=== PATIENT | female | born 1965 | race Caucasian/White ===

== ENCOUNTER 2016-09-12 10:43 | Outpatient (CLI) | payer BC ==
[~2016-09-12] VITALS: Ht 177.8 cm; Wt 66.7 kg
[~2016-09-12 10:43] MED LIST: ALPR.25T; DESV50TA PO; DOXY100C2 PO; ESCT10T; FLC150T PO; FLUO40CA PO; HDR4T PO; HYDR-2997 PO; HYDR1CAP2 PO; MELO15TA14 PO; TRAM-21 PO
[2016-09-12] MEDS ORDERED: TRIAMCINOLONE ACET (KENALOG-40) 40 MG/ML 1 ML VIAL ONE (10:52)
[2016-09-12] MEDS ORDERED: BUPIVACAINE 0.25% 30 ML (SENSORCAINE) VIAL ONE (10:52)
[2016-09-12 11:03] VITALS: BP 127/84
[2016-09-12 11:34] VITALS: BP 132/91
--- NOTE | 2016-09-12 14:54 | Pain Medicine-Procedure ---
Procedure Pre-Op/Post-Op Diagnosis Diagnosis: disc disorder with radiculopathy, lumbar Indications for Operation Low back pain Attending Surgeon Sirisha Procedure Date of Service: Sep 12, 2016 Procedure: Lumbar Epidural Steroid Injection at the L5-S1 level under Fluoroscopic Guidance Procedure: Patient was identified in the holding area. After risks, benefits, and alternatives were discussed with the patient, informed consent was obtained. Patient was brought to the fluoroscopy suite and placed prone on the procedure room table. A time out was performed. Vital signs were monitored throughout the procedure. The patients low back was prepped and draped in the usual sterile fashion. The patients skin was anesthetized using 2% Lidocaine. A Tuohy needle was inserted and advanced to the L5-S1 epidural space under fluoroscopic guidance using the loss of resistance technique and intermittent projection of fluoroscopy. There was no paresthesia with needle placement. The needle position was confirmed in both the AP and lateral view. After negative aspiration 2ml of contrast was injected under live fluoroscopy which showed good spread of the contrast in the epidural space at the appropriate level, there was no intravascular or subarachnoid spread. Again, after negative aspiration for heme or CSF, 2 ml of 0.25% Bupivicaine, 2ml of preservative free normal saline, and 80mg of Kenalog was injected. The needle was removed and a sterile bandage was placed and the patient was transferred to the recovery area in stable condition. After a brief period of observation, patient was discharged to home with no new neurological deficits and no apparent complications. Complications None BEBO GARCIA MD Sep 12, 2016 2:54 pm
== END 2016-09-12 11:37 ==
LOC: CARD 10:43
PROVIDERS: ATTEND Pain Medicine Pain Medicine
DX: M51.16 Intervertebral disc disorders with radiculopathy, lumbar region (principal); M53.3 Sacrococcygeal disorders, not elsewhere classified; G89.4 Chronic pain syndrome; Z79.899 Other long term (current) drug therapy
CPT/HCPCS: 62323

== ENCOUNTER 2018-02-14 10:20 | Emergency (ER) | payer BC ==
[~2018-02-14] VITALS: Ht 177.8 cm; Wt 68.0 kg
--- OUTSIDE RECORDS SUMMARY | 2018-02-14 10:26 | XMS REPORT ---
Author Author AMY COSTA [facility] Address [address] [place] [address] Care Team Providers Care Software Developer Name Role Phone AMY COSTA Unavailable PROBLEMS Type Condition ICD9-CM Code [id number] Code Onset Dates Condition Status SNOMED Code Problem Adjustment disorder with mixed anxiety and depressed mood F43.23 Active [id number] ALLERGIES No Information SOCIAL HISTORY Never Assessed PLAN OF CARE Activity Details Follow Up 1 Week Reason:BH Follow-up VITAL SIGNS MEDICATIONS Medication Instructions Dosage Frequency Start Date End Date Duration Status Alprazolam Active RESULTS No Results PROCEDURES Procedure Date Ordered Result Body Site Psychotherapy, patient &/family, 30 minutes, new patient October 06, 2016 IMMUNIZATIONS No Known Immunizations
--- OUTSIDE RECORDS SUMMARY | 2018-02-14 10:26 | XMS REPORT ---
Author Author AMY COSTA Organization [facility] [place] Address [address] [place] [address] Care Team Providers Care Jig And Fixture Builder Name Role Phone AMY COSTA Unavailable PROBLEMS Type Condition ICD9-CM Code [id number] Code Onset Dates Condition Status SNOMED Code Problem Adjustment disorder with mixed anxiety and depressed mood F43.23 Active [id number] ALLERGIES No Information ENCOUNTERS Encounter Location Date Diagnosis [facility] [place] [address] [facility] [id number] [address] Oct, Adjustment disorder with mixed anxiety and depressed mood F43.23 [place] [address] [address] [facility] [id number] [address] September, Adjustment disorder with mixed anxiety and depressed mood F43.23 IMMUNIZATIONS No Known Immunizations SOCIAL HISTORY Never Assessed REASON FOR VISIT Follow-up Anxiety/Depression PLAN OF CARE Activity Details Follow Up Next available Reason: Follow-up VITAL SIGNS MEDICATIONS Unknown Medications RESULTS No Results PROCEDURES Procedure Date Ordered Result Body Site Psychotherapy, patient &/family, 45 minutes, established patient October 29, 2016 INSTRUCTIONS MEDICATIONS ADMINISTERED No Known Medications
--- OUTSIDE RECORDS SUMMARY | 2018-02-14 10:30 | XMS REPORT ---
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 06/18/2017 12:00 AM CMP 06/18/2017 12:00 AM LIPID PANEL 06/18/2017 12:00 AM bilateral foot pain 06/24/2016 1:00 PM bilateral foot pain CLBP with neuropathic pain. CLBP and neuropathic pain. Basic metabolic profile 10/12/2014 12:00 AM Medications Active Name Start Date Estimated Completion Date SIG Comments hydrocodone-acetaminophen 10-325 mg oral tablet Effexor XR 37.5 mg oral capsule,extended release 24hr 06/11/2016 take 1 capsule (37.5 mg) by oral route once daily with food cyclobenzaprine 10 mg oral tablet 07/30/2016 take 1 tablet by oral route once a day (at bedtime) for 30 days cyclobenzaprine 10 mg oral tablet 08/28/2016 TAKE 1 TABLET BY MOUTH ONCE EVERY NIGHT AT BEDTIME 28-800 mg-mcg oral tablet take 1 tablet by oral route daily meloxicam 15 mg oral tablet 11/13/2017 TAKE 1 TABLET BY MOUTH ONCE DAILY bupropion HCl 75 mg oral tablet 01/27/2018 take 2 tablets by oral route 2 times a day fluticasone 50 mcg/actuation nasal spray,suspension 01/27/2018 ONE SPRAY INTO EACH NOSTRIL ONCE DAILY venlafaxine 75 mg oral capsule,extended release 24hr 01/27/2018 TAKE 1 CAPSULE BY MOUTH DAILY alprazolam 0.5 mg oral tablet 02/02/2018 05/03/2018 take 1 tablet by oral route Q6 PRN for 30 days Ambien CR 12.5 mg oral tablet,ext release multiphase 02/11/2018 take 1 tablet (12.5 mg) by oral route once daily at bedtime Name Start Date Expiration Date SIG Comments Xanax 0.5 mg oral tablet 10/07/2011 01/05/2012 take 1 tablet by oral route every 6 hours as needed for 30 days tramadol 50 mg oral tablet 01/19/2012 04/18/2012 TAKE 1 TO 2 TABLETS BY MOUTH THREE TIMES DAILY NEEDED FOR 30 DAYS Nucynta ER 100 mg oral tablet extended release 12 hr 03/29/2012 04/28/2012 take 1 tablet (100 mg) by oral route every 12 hours for 30 days diclofenac sodium 75 mg oral tablet,delayed release (DR/EC) 01/27/20132013 take 1 tablet (75 mg) by oral route 2 times per day for 30 days changed to Meloxicam diclofenac sodium 75 mg oral tablet,delayed release (DR/EC) 05/06/20122012 TAKE 1 TABLET BY MOUTH TWICE DAILY NEEDED fluoxetine 40 mg oral capsule 09/29/2012 10/29/2012 TAKE 1 CAPSULE BY MOUTH EVERY MORNING Nucynta 75 mg oral tablet 09/30/2012 11/02/2012 take 1 tablet (75 mg) by oral route every 6 hours for 30 days Gralise 30-Day Starter Pack 300 mg (9)- 600 mg (69) oral tablet extended release 24 hr 05/12/2013 06/11/2013 take 1 tablet by oral route once a day ( at bedtime) for 30 days Nucynta 50 mg oral tablet 09/22/2013 10/22/2013 take 1 tablet (50 mg) by oral route every 6 hours as needed for 30 days Medrol (Donn) 4 mg oral tablets,dose pack 01/06/2014 take as directed Zithromax Z-Donn 250 mg oral tablet 01/06/2014 01/11/2014 take 2 tablets (500 mg) by oral route once daily for 1 day then 1 tablet (250 mg) by oral route once daily for 4 days Bactrim DS 800-160 mg oral tablet 01/16/2014 01/26/2014 take 1 tablet by oral route 2 times per day for 10 days Chantix Starting Month Box 0.5 mg (11)- 1 mg (42) oral tablets,dose pack 201410/04/2014 take as directed for 30 days Augmentin 875-125 mg oral tablet 10/12/2014 take 1 tablet by oral route every 12 hours meloxicam 15 mg oral tablet 11/23/2014 03/23/2015 take 1 tablet (15 mg) by oral route once daily for 30 days Chantix Continuing Month Donn 1 mg oral tablet 12/28/2014 03/22/2015 take 1 tablet (1 mg) with a glass of water by oral route 2 times per day after meals for 12 weeks prednisone 20 mg oral tablet 02/07/2015 02/13/2015 Take 3 tabs x 2 days; then Take 2 tabs x 2 days; then Take 1 tab x 2 days. [place] 10-325 mg oral tablet 05/03/2015 06/02/2015 take 1 tablet by oral route every 6 hours as needed for 30 days gabapentin 100 mg oral capsule 08/23/2015 09/22/2015 take 1 capsule by oral route 3 times a day for 30 days Brintellix 5 mg oral tablet 08/31/2015 10/30/2015 take 1 tablet (5 mg) by oral route once daily at the same time each day for 30 days Bactrim DS 800-160 mg oral tablet 01/04/2016 01/11/2016 take 1 tablet by oral route 2 times per day for 7 days Restoril 15 mg oral capsule 01/14/2016 02/13/2016 take 1 capsule (15 mg) by oral route once daily at bedtime as needed for 30 days not working for her Bactrim DS 800-160 mg oral tablet 04/10/2016 04/14/2016 take 1 tablet by oral route every 12 hours for 7 days Belsomra 20 mg oral tablet 04/08/2016 06/07/2016 take 1 tablet (20 mg) by oral route once per night within 30 minutes of bedtime. Take only if at least 7 hrs of bedtime remain before planned time of waking. for 30 days to expensive cyclobenzaprine 10 mg oral tablet 06/11/2016 07/11/2016 take 1 tablet by oral route once a day (at bedtime) for 30 days Augmentin 875-125 mg oral tablet 06/11/2016 06/18/2016 take 1 tablet by oral route every 12 hours for 7 days Restoril 15 mg oral capsule 11/20/2016 02/18/2017 take 1 capsule (15 mg) by oral route once daily at bedtime as needed for 30 days duplicate amoxicillin 500 mg oral capsule 01/31/2017 02/07/2017 take 1 capsule (500 mg) by oral route every 12 hours for 7 days Effexor XR 75 mg oral capsule,extended release 24hr 02/10/2017 02/10/2017 take 1 capsule (75 mg) by oral route once daily baclofen 10 mg oral tablet 08/07/2017 08/07/2017 take 1 tablet by oral route daily Flonase Allergy Relief 50 mcg/actuation nasal spray,suspension 08/07/201708/07 inhale 1 spray (50 mcg) in each nostril by intranasal route once daily duplicate Zithromax Z-Donn 250 mg oral tablet 08/10/2017 08/15/2017 take 2 tablets (500 mg) by oral route once daily for 1 day then 1 tablet (250 mg) by oral route once daily for 4 days Medrol (Donn) 4 mg oral tablets,dose pack 08/17/2017 take as directed Augmentin 875-125 mg oral tablet 11/04/2017 11/11/2017 take 1 tablet by oral route every 12 hours for 7 days Discontinued Name Start Date Discontinued Date SIG Comments Percocet 5-325 mg oral tablet 06/26/2011 take 1 tablet by oral route every 4 hours as needed Percocet 5-325 mg oral tablet 07/14/2011 08/15/2011 take 1 tablet by oral route every 4-6 hours as needed Robaxin 500 mg oral tablet 07/21/2012 take 1 tablets by oral route 4 times per day Lyrica 50 mg oral capsule 01/28/2012 02/11/2012 take 1 capsule (50 mg) by oral route 3 times per day for 30 days trazodone 150 mg oral tablet 02/09/2012 02/11/2012 TAKE 1 TABLET BY MOUTH THREE TIMES DAILY AFTER MEALS FOR 30 DAYS Neurontin 100 mg oral capsule 02/11/2012 05/02/2012 take 3 capsules (300 mg) by oral route Q HS Lortab 5-500 mg oral tablet 02/27/2012 03/11/2012 1 tab po TID/PRN pain Neurontin 300 mg oral capsule 02/27/2012 05/02/2012 1 caps po at 5pm daily Nucynta 50 mg oral tablet 03/11/2012 03/29/2012 take 1 tablet (50 mg) by oral route every 6 hours as needed for 30 days olanzapine 5 mg oral tablet 07/21/2012 11/02/2012 take 1 tablet (5 mg) by oral route once daily meloxicam 15 mg oral tablet 11/01/2012 11/02/2012 TAKE 1 TABLET BY MOUTH DAILY NEEDED Nucynta 100 mg oral tablet 02/22/2013 03/04/2013 take 1 tablet (100 mg) by oral route every 6 hours as needed for 30 days patient is out of medication since she can no longer afford. Insurance coverage was dropped. naproxen 500 mg oral tablet 05/11/2013 08/30/2013 take 1 tablet (500 mg) by oral route 2 times per day with food for 30 days hydrocodone-acetaminophen 10-325 mg oral tablet 05/11/2013 05/31/2013 take 1 tablet by oral route every 12 hours as needed for 30 days moderate to severe pain Cymbalta 30 mg oral capsule,delayed release(DR/EC) 05/31/2013 06/06/2013 take 1 tablet by mouth daily x7 days then 60mg daily thereafter fluoxetine 40 mg oral capsule 04/26/2014 take 1 capsule (40 mg) by oral route once daily in the morning naproxen 500 mg oral tablet 09/19/2013 11/17/2013 TAKE 1 TABLET (500 MG) BY ORAL ROUTE 2 TIMES PER DAY WITH FOOD FOR 30 DAYS cyclobenzaprine 10 mg oral tablet 11/17/2013 02/06/2014 take 1 tablet (10 mg) by oral route 2 times per day for 30 days meloxicam 15 mg oral tablet 02/28/2014 05/03/2014 take 1 tablet (15 mg) by oral route once daily Levaquin 500 mg oral tablet 04/26/2014 take 1 tablet (500 mg) by oral route once daily for 10 days Chantix Starting Month Donn 0.5 mg (11)- 1 mg (42) oral tablets,dose pack 201307/27/2014 take as directed Chantix Continuing Month Donn 1 mg oral tablet 04/26/2014 07/27/2014 take 1 tablet (1 mg) with a glass of water by oral route 2 times per day after meals albuterol sulfate 90 mcg/actuation inhalation HFA aerosol inhaler 04/26/2014 inhale 1 - 2 puffs by inhalation route every 6 hours as needed Zorvolex 35 mg oral capsule 05/03/2014 2014 take 1 capsule (35 mg) by oral route 3 times per day for 30 days cyclobenzaprine 10 mg oral tablet 05/03/2014 07/27/2014 take 1 tablet (10 mg) by oral route 2 times per day for 30 days changed to zanaflex Sudafed 12 Hour 120 mg oral tablet extended release 08/17/2014 10/12/2014 take 1 tablet (120 mg) by oral route every 12 hours Medrol (Donn) 4 mg oral tablets,dose pack 08/17/2014 10/05/2014 take as directed Wellbutrin 100 mg oral tablet 10/12/2014 03/23/2015 take 1 tablet (100 mg) by oral route 2 times per day gabapentin 300 mg oral capsule 11/23/2014 03/08/2015 take 1 capsule by oral route 3 times a day for 30 days Zanaflex 4 mg oral tablet 11/23/2014 01/11/2015 take 1 tablet by oral route once a day (at bedtime) as needed for 30 days Nucynta ER 100 mg oral tablet extended release 12 hr 01/11/2015 02/08/2015 take 1 tablet (100 mg) by oral route every 12 hours for 30 days Restoril 15 mg oral capsule 01/11/2015 02/08/2015 take 1 capsule (15 mg) by oral route once daily at bedtime as needed for insomnia. DO NOT TAKE WITH THE XANAX effective but changed to elavil amitriptyline 75 mg oral tablet 06/21/2015 07/19/2015 take 1 tablet (75 mg) by oral route once daily at bedtime for 30 days Cymbalta 60 mg oral capsule,delayed release(DR/EC) 07/19/2015 08/23/2015 take 1 capsule (60 mg) by oral route once daily for 30 days Belsomra 20 mg oral tablet 11/27/2015 01/14/2016 take 1 tablet (20 mg) by oral route once per night within 30 minutes of bedtime. Take only if at least 7 hrs of bedtime remain before planned time of waking. for 30 days Chantix Starting Month Donn 0.5 mg (11)- 1 mg (42) oral tablets,dose pack 201502/21/2016 take as directed Chantix Continuing Month Box 1 mg oral tablet 02/21/2016 06/11/2016 take 1 tablet (1 mg) with a glass of water by oral route 2 times per day after meals for 12 weeks quit smoking Trintellix 10 mg oral tablet 05/15/2016 06/11/2016 take 1 tablet (10 mg) by oral route once daily at the same time each day for 30 days gabapentin 100 mg oral capsule 01/31/2017 Take 1 cap daily at HS naproxen oral 05/14/2016 Zanaflex 4 mg oral tablet 05/14/2016 Patanol 0.1 % ophthalmic drops 08/29/2016 11/20/2016 instill 1 drop into affected eye(s) by ophthalmic route 2 times per day at an interval of 6 to 8 hours temazepam 15 mg oral capsule 02/20/2017 take 1 capsule (15 mg) by oral route once daily at bedtime as needed Contrave 8-90 mg oral tablet extended release 02/20/2017 02/20/2017 take 2 tablets by oral route 2 times per day in the morning and evening for 30 days unable to use due to Hydrocodone Belsomra 20 mg oral tablet 02/20/2017 03/02/2017 take 1 tablet (20 mg) by oral route once per night, within 30 minutes of bedtime, as needed. Take only if at least 7 hrs of bedtime remain before planned time of waking. temazepam 15 mg oral capsule 04/07/2017 05/22/2017 take 1 capsule (15 mg) by oral route once daily at bedtime as needed cyclobenzaprine 10 mg oral tablet 04/22/2017 05/22/2017 TAKE 1 TABLET BY MOUTH ONCE EVERY NIGHT AT BEDTIME Ambien 10 mg oral tablet 08/07/2017 08/10/2017 take 1 tablet (10 mg) by oral route once daily at bedtime for 30 days Changed to Ambien CR baclofen 10 mg oral tablet 11/13/2017 01/27/2018 TAKE 1 TABLET BY ORAL ROUTE DAILY titrating off medication Problem List Description Status Onset Anxiety Active Arthritis unspecified Active Diverticulitis Of Colon Active Sacroiliitis Active Pelvic Pain Active 06/26/2011 Family history of breast cancer Active 06/26/2011 Back pain Active Depression and anxiety Active Allergic rhinitis Active 11/17/2013 Depression Active 08/17/2014 Anxiety Active 08/17/2014 Depression Active 03/27/2015 Insomnia, unspecified type Active 08/23/2015 Vital Signs Date Time BP-Sys(mm[Hg] BP-[place](mm[Hg]) HR(bpm) RR(rpm) Temp WT HT HC BMI BSA BMI Percentile O2 Sat(%) 01/27/2018 8:09:00 AM 121 mmHg 70 mmHg 94 bpm 18 rpm 98.2 F 155.125 lbs 68 in 23.5864 kg/m 1.8374 m 98 % 11/19/2017 5:30:00 PM 130 mmHg 80 mmHg 95 bpm 18 rpm 98.1 F 150.125 lbs 68 in 22.83 kg/m2 1.81 m2 97 % 11/04/2017 10:29:00 AM 130 mmHg 72 mmHg 86 bpm 18 rpm 98.1 F 158 lbs 68 in 24.0236 kg/m 1.8543 m 98 % 10/13/2017 1:05:00 PM 106 mmHg 60 mmHg 87 bpm 18 rpm 98.2 F 68 in 99 % 2017 9:53:00 AM 124 mmHg 72 mmHg 77 bpm 16 rpm 97.1 F 147.375 lbs 68 in 22.4081 kg/m 1.7909 m 98 % 05/22/2017 10:36:00 AM 124 mmHg 70 mmHg 123 bpm 16 rpm 97.8 F 152 lbs 68 in 23.11 kg/m2 1.82 m2 97 % 02/20/2017 10:54:00 AM 129 mmHg 66 mmHg 89 bpm 16 rpm 98.2 F 164 lbs 68 in 24.9359 kg/m 1.8892 m 98 % 02/10/2017 12:47:00 PM 130 mmHg 60 mmHg 103 bpm 20 rpm 98.2 F 166.125 lbs 68 in 25.26 kg/m2 1.90 m2 97 % 01/31/2017 12:34:00 PM 122 mmHg 94 mmHg 142 bpm 20 rpm 98.9 F 162.25 lbs 68 in 24.6698 kg/m 1.8791 m 96 % 11/20/2016 1:56:00 PM 144 mmHg 70 mmHg 84 bpm 18 rpm 98.3 F 157.5 lbs 68 in 23.95 kg/m2 1.85 m2 98 % 08/29/2016 10:35:00 AM 122 mmHg 72 mmHg 107 bpm 18 rpm 98 F 151.375 lbs 68 in 23.0163 kg/m 1.815 m 99 % 07/31/2016 11:21:00 AM 130 mmHg 74 mmHg 93 bpm 18 rpm 98.2 F 149.5 lbs 68 in 22.73 kg/m2 1.80 m2 100 % 06/11/2016 1:23:00 PM 126 mmHg 72 mmHg 105 bpm 18 rpm 98.5 F 153.125 lbs 68 in 23.2823 kg/m 1.8255 m 98 % 06/05/2016 3:12:00 PM 120 mmHg 70 mmHg 79 bpm 16 rpm 97.8 F 154 lbs 68 in 23.42 kg/m2 1.83 m2 99 % 05/14/2016 9:59:00 AM 106 mmHg 70 mmHg 112 bpm 18 rpm 98.8 F 150.5 lbs 68 in 22.8832 kg/m 1.8098 m 99 % 05/05/2016 9:40:00 AM 120 mmHg 85 mmHg 111 bpm 16 rpm 97.5 F 151 lbs 68 in 22.96 kg/m2 1.81 m2 99 % 04/24/2016 8:19:00 AM 142 mmHg 76 mmHg 89 bpm 18 rpm 98.1 F 153.5 lbs 68.5 in 22.9999 kg/m 1.8344 m 100 % 04/07/2016 9:40:00 AM 114 mmHg 68 mmHg 68 bpm 16 rpm 97.1 F 155.4 lbs 68.25 in 23.46 kg/m2 1.84 m2 98 % 03/04/2016 1:56:00 PM 124 mmHg 84 mmHg 85 bpm 18 rpm 96.5 F 157 lbs 68.25 in 23.697 kg/m 1.8518 m 98 % 01/14/2016 11:31:00 AM 124 mmHg 72 mmHg 86 bpm 18 rpm 97.9 F 169.25 lbs 70 in 24.28 kg/m2 1.95 m2 99 % 01/09/2016 3:38:00 PM 63 bpm 16 rpm 97.6 F 168 lbs 70 in 24.1052 kg/m 1.94 m 98 % 01/04/2016 2:40:00 PM 120 mmHg 80 mmHg 78 bpm 16 rpm 98.5 F 168 lbs 68 in 25.54 kg/m2 1.91 m2 98 % 11/27/2015 9:01:00 AM 130 mmHg 68 mmHg 85 bpm 18 rpm 97.8 F 166.25 lbs 70 in 23.8541 kg/m 1.9299 m 98 % 08/23/2015 8:24:00 AM 142 mmHg 84 mmHg 96 bpm 18 rpm 97.7 F 173.25 lbs 70 in 24.86 kg/m2 1.97 m2 99 % 07/19/2015 11:30:00 AM 130 mmHg 88 mmHg 102 bpm 98.5 F 173 lbs 70 in 24.8227 kg/m 1.9687 m 99 % 06/21/2015 3:50:00 PM 127 mmHg 87 mmHg 123 bpm 18 rpm 97.9 F 177 lbs 70 in 25.40 kg/m2 1.99 m2 99 % 04/12/2015 3:13:00 PM 128 mmHg 80 mmHg 96 bpm 20 rpm 98.4 F 162 lbs 70 in 23.2443 kg/m 1.905 m 03/23/2015 8:53:00 AM 128 mmHg 72 mmHg 102 bpm 18 rpm 98.4 F 165.5 lbs 70 in 23.75 kg/m2 1.93 m2 03/08/2015 12:55:00 PM 124 mmHg 68 mmHg 67 bpm 18 rpm 97.6 F 156 lbs 70 in 22.3834 kg/m 1.8694 m 02/14/2015 3:07:00 PM 115 mmHg 70 mmHg 82 bpm 16 rpm 158 lbs 70 in 22.67 kg/m2 1.88 m2 98 % 02/08/2015 1:01:00 PM 116 mmHg 70 mmHg 73 bpm 16 rpm 98 F 158 lbs 70 in 22.6704 kg/m 1.8814 m 02/07/2015 5:05:00 PM 128 mmHg 76 mmHg 76 bpm 18 rpm 97.7 F 162.125 lbs 70 in 23.26 kg/m2 1.91 m2 100 % 01/11/2015 3:11:00 PM 124 mmHg 62 mmHg 70 bpm 18 rpm 97.4 F 163 lbs 70 in 23.3878 kg/m 1.9109 m 12/28/2014 9:30:00 AM 128 mmHg 72 mmHg 84 bpm 18 rpm 99.7 F 167 lbs 70 in 23.96 kg/m2 1.93 m2 100 % 12/14/2014 9:33:00 AM 112 mmHg 64 mmHg 70 bpm 18 rpm 96.6 F 163 lbs 70 in 23.3878 kg/m 1.9109 m 11/23/2014 10:00:00 AM 116 mmHg 80 mmHg 73 bpm 20 rpm 96 F 163 lbs 70 in 23.39 kg/m2 1.91 m2 10/26/2014 3:10:00 PM 122 mmHg 90 mmHg 88 bpm 98.2 F 70 in 10/12/2014 3:36:00 PM 124 mmHg 64 mmHg 94 bpm 18 rpm 98.7 F 166.25 lbs 70 in 23.8541 kg/m 1.9299 m 100 % 10/05/2014 3:05:00 PM 142 mmHg 78 mmHg 74 bpm 18 rpm 97.9 F 167 lbs 70 in 23.96 kg/m2 1.93 m2 09/07/2014 3:01:00 PM 132 mmHg 84 mmHg 71 bpm 20 rpm 96.8 F 167 lbs 68 in 25.392 kg/m 1.9064 m 08/17/2014 11:16:00 AM 128 mmHg 64 mmHg 117 bpm 18 rpm 99 F 167.5 lbs 70 in 24.03 kg/m2 1.94 m2 98 % 08/14/2014 10:09:00 AM 144 mmHg 72 mmHg 74 bpm 20 rpm 97 F 168 lbs 70 in 24.1052 kg/m 1.94 m 07/27/2014 3:04:00 PM 126 mmHg 84 mmHg 68 bpm 20 rpm 97.2 F 168 lbs 70 in 24.11 kg/m2 1.94 m2 2014 2:07:00 PM 104 mmHg 62 mmHg 75 bpm 20 rpm 97.6 F 172 lbs 70 in 24.6792 kg/m 1.963 m 2014 11:16:00 AM 130 mmHg 95 mmHg 114 bpm 20 rpm 97.8 F 177 lbs 70 in 25.40 kg/m2 1.99 m2 100 % 06/28/2014 2:25:00 PM 142 mmHg 86 mmHg 78 bpm 18 rpm 97.4 F 164 lbs 70 in 23.5313 kg/m 1.9168 m 05/31/2014 2:57:00 PM 124 mmHg 80 mmHg 88 bpm 18 rpm 97.4 F 169 lbs 04/26/2014 3:42:00 PM 118 mmHg 84 mmHg 116 bpm 20 rpm 97.6 F 161 lbs 70 in 23.1009 kg/m 1.8992 m 98 % 04/05/2014 2:50:00 PM 104 mmHg 60 mmHg 76 bpm 16 rpm 98.2 F 158.25 lbs 70 in 22.71 kg/m2 1.88 m2 03/10/2014 10:59:00 AM 118 mmHg 90 mmHg 76 bpm 16 rpm 98.1 F 155 lbs 70 in 22.24 kg/m 1.8634 m 02/28/2014 9:25:00 AM 109 mmHg 77 mmHg 107 bpm 20 rpm 98.7 F 162.8 lbs 70 in 23.36 kg/m2 1.91 m2 98 % 02/24/2014 8:20:00 AM 122 mmHg 80 mmHg 74 bpm 16 rpm 98.2 F 158.125 lbs 70 in 22.6883 kg/m 1.8821 m 02/06/2014 4:11:00 PM 124 mmHg 80 mmHg 74 bpm 16 rpm 98 F 156.5 lbs 70 in 22.46 kg/m2 1.87 m2 01/06/2014 10:01:00 AM 130 mmHg 100 mmHg 121 bpm 18 rpm 98.5 F 157.2 lbs 70 in 22.5556 kg/m 1.8766 m 100 % 12/15/2013 9:08:00 AM 124 mmHg 80 mmHg 84 bpm 16 rpm 97.6 F 151.5 lbs 70 in 21.74 kg/m2 1.84 m2 11/17/2013 10:04:00 AM 122 mmHg 64 mmHg 80 bpm 18 rpm 97.5 F 149.5 lbs 70 in 21.4508 kg/m 1.8301 m 100 % 11/17/2013 9:06:00 AM 104 mmHg 70 mmHg 82 bpm 16 rpm 97.2 F 148.187 lbs 70 in 21.26 kg/m2 1.82 m2 10/20/2013 8:21:00 AM 108 mmHg 80 mmHg 82 bpm 16 rpm 97.3 F 145 lbs 70 in 20.8051 kg/m 1.8023 m 09/22/2013 8:37:00 AM 104 mmHg 80 mmHg 84 bpm 16 rpm 97.8 F 144.375 lbs 70 in 20.72 kg/m2 1.80 m2 08/30/2013 2:23:00 PM 110 mmHg 72 mmHg 82 bpm 18 rpm 97.5 F 144.5 lbs 70 in 20.7334 kg/m 1.7992 m 99 % 08/26/2013 8:57:00 AM 144 mmHg 72 mmHg 73 bpm 97.7 F 148 lbs 70 in 21.24 kg/m2 1.82 m2 07/29/2013 8:59:00 AM 98 mmHg 76 mmHg 76 bpm 16 rpm 97 F 146.375 lbs 70 in 21.0024 kg/m 1.8108 m 07/01/2013 9:03:00 AM 124 mmHg 74 mmHg 78 bpm 20 rpm 97.5 F 06/06/2013 9:45:00 AM 158 mmHg 100 mmHg 64 bpm 16 rpm 97.4 F 150.125 lbs 70 in 21.5405 kg/m 1.8339 m 05/31/2013 9:58:00 AM 128 mmHg 64 mmHg 110 bpm 18 rpm 98.7 F 152 lbs 70 in 21.81 kg/m2 1.85 m2 97 % 05/11/2013 3:00:00 PM 122 mmHg 74 mmHg 82 bpm 16 rpm 98.2 F 151.25 lbs 70 in 21.7019 kg/m 1.8408 m 03/22/2013 3:21:00 PM 144 mmHg 90 mmHg 88 bpm 18 rpm 97 F 149.125 lbs 70 in 21.40 kg/m2 1.83 m2 03/10/2013 3:24:00 PM 110 mmHg 82 mmHg 106 bpm 18 rpm 97.2 F 147 lbs 70 in 21.0921 kg/m 1.8147 m 03/04/2013 9:03:00 AM 110 mmHg 64 mmHg 72 bpm 16 rpm 97.2 F 143 lbs 70 in 20.52 kg/m2 1.79 m2 03/02/2013 3:51:00 PM 122 mmHg 78 mmHg 106 bpm 16 rpm 98.5 F 141.25 lbs 70 in 20.2671 kg/m 1.7789 m 97 % 02/22/2013 3:57:00 PM 124 mmHg 84 mmHg 70 bpm 16 rpm 97 F 141.25 lbs 70 in 20.27 kg/m2 1.78 m2 01/28/2013 8:48:00 AM 138 mmHg 64 mmHg 92 bpm 18 rpm 96.6 F 138.125 lbs 70 in 19.8187 kg/m 1.7591 m 100 % 01/25/2013 3:32:00 PM 118 mmHg 70 mmHg 84 bpm 16 rpm 97.8 F 139.25 lbs 70 in 19.98 kg/m2 1.77 m2 12/27/2012 2:04:00 PM 132 mmHg 98 mmHg 78 bpm 16 rpm 98.3 F 138 lbs 70 in 19.8007 kg/m 1.7583 m 11/24/2012 1:20:00 PM 124 mmHg 80 mmHg 74 bpm 169 rpm 98 F 136 lbs 70 in 19.51 kg/m2 1.75 m2 11/02/2012 10:02:00 AM 112 mmHg 54 mmHg 74 bpm 18 rpm 97.4 F 134 lbs 70 in 19.2268 kg/m 1.7326 m 11/02/2012 9:12:00 AM 104 mmHg 78 mmHg 95 bpm 20 rpm 97.9 F 134 lbs 70 in 19.23 kg/m2 1.73 m2 100 % 09/30/2012 3:23:00 PM 132 mmHg 74 mmHg 92 bpm 18 rpm 98.6 F 137 lbs 70 in 19.6573 kg/m 1.7519 m 09/01/2012 3:54:00 PM 102 mmHg 62 mmHg 88 bpm 16 rpm 09/01/2012 3:01:00 PM 104 mmHg 64 mmHg 88 bpm 18 rpm 97.7 F 134 lbs 70 in 19.2268 kg/m 1.7326 m 07/21/2012 4:04:00 PM 102 mmHg 70 mmHg 81 bpm 16 rpm 98.3 F 127.5 lbs 100 % 06/16/2012 4:11:00 PM 108 mmHg 74 mmHg 76 bpm 16 rpm 98.9 F 127.125 lbs 70 in 18.2404 kg/m 1.6876 m 04/28/2012 4:09:00 PM 124 mmHg 76 mmHg 72 bpm 16 rpm 98.5 F 130 lbs 70 in 18.65 kg/m2 1.71 m2 04/20/2012 4:01:00 PM 112 mmHg 76 mmHg 91 bpm 16 rpm 99 F 134.375 lbs 100 % 03/29/2012 3:38:00 PM 100 mmHg 62 mmHg 74 bpm 16 rpm 97.3 F 130 lbs 70 in 18.6529 kg/m 1.7066 m 02/11/2012 3:50:00 PM 104 mmHg 82 mmHg 84 bpm 16 rpm 95.9 F 132 lbs 70 in 18.94 kg/m2 1.72 m2 01/28/2012 8:59:00 AM 108 mmHg 72 mmHg 76 bpm 14 rpm 95.2 F 134.25 lbs 70 in 19.2627 kg/m 1.7342 m 01/19/2012 3:22:00 PM 122 mmHg 80 mmHg 89 bpm 16 rpm 98.5 F 137 lbs 98 % 12/03/2011 3:44:00 PM 116 mmHg 72 mmHg 76 bpm 98.6 F 135 lbs 70 in 19.3703 kg/m 1.7391 m 11/12/2011 10:47:00 AM 120 mmHg 70 mmHg 97 bpm 18 rpm 98.3 F 134.375 lbs 70 in 19.28 kg/m2 1.74 m2 100 % 10/28/2011 9:24:00 AM 109 mmHg 69 mmHg 67 bpm 98.5 F 140 lbs 70 in 20.0877 kg/m 1.771 m 10/07/2011 3:50:00 PM 122 mmHg 84 mmHg 84 bpm 16 rpm 98.4 F 143.5 lbs 100 % 09/04/2011 4:58:00 PM 120 mmHg 80 mmHg 85 bpm 98.3 F 145 lbs 70 in 20.8051 kg/m 1.8023 m 08/15/2011 3:21:00 PM 120 mmHg 79 mmHg 76 bpm 97.4 F 148.5 lbs 70 in 21.31 kg/m2 1.82 m2 07/14/2011 11:11:00 AM 128 mmHg 82 mmHg 70 bpm 98.3 F 156 lbs 70 in 22.3834 kg/m 1.8694 m 06/26/2011 9:34:00 AM 114 mmHg 82 mmHg 83 bpm 16 rpm 97.7 F 158.5 lbs 70 in 22.74 kg/m2 1.88 m2 98 % 06/24/2011 4:01:00 PM 124 mmHg 77 mmHg 77 bpm 97.6 F 162 lbs 68.5 in 24.2735 kg/m 1.8845 m Social History Name Description Comments Tobacco Current every day smoker Alcohol Use - Rare Children at home age 16 Lives with spouse in a house bachelors degree College graduate Denies illicit substance 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[employer] 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 History of Procedures Date Ordered Description Order Status 02/14/2015 12:00 AM Orthopedic Consult Reviewed 03/23/2015 12:00 AM FLU VACC 4 ROB 3 YRS PLUS IM Reviewed 03/23/2015 12:00 AM THER/PROPH/DIAG INJ SC/IM Reviewed 04/12/2015 12:00 AM INJECT SPINE LUMBAR/SACRAL Reviewed 05/03/2015 12:00 AM OFFICE/OUTPATIENT VISIT EST Reviewed 06/21/2015 12:00 AM COMPLETE CBC W/AUTO DIFF WBC Reviewed 06/21/2015 12:00 AM COMPREHEN METABOLIC PANEL Reviewed 06/21/2015 12:00 AM FIBRIN DEGRADATION QUANT Reviewed 06/21/2015 12:00 AM ASSAY OF TROPONIN QUANT Reviewed 06/21/2015 12:00 AM ELECTROCARDIOGRAM COMPLETE Reviewed 07/11/2015 12:00 AM INJECT SPINE LUMBAR/SACRAL Reviewed 07/19/2015 12:00 AM MAMMOGRAM BOTH BREASTS Reviewed 11/27/2015 12:00 AM Decadron, Per 1 Mg [facility]# [address]-18 Reviewed 11/27/2015 12:00 AM Depo-Medrol 40mg Reviewed 06/24/2011 12:00 AM ASSAY THYROID STIM HORMONE Reviewed 06/24/2011 12:00 AM ASSAY OF GONADOTROPIN ([facility]) Reviewed 06/24/2011 12:00 AM CYTOPATH TBS C/V MANUAL Reviewed 06/24/2011 12:00 AM SPECIMEN HANDLING OFFICE-LAB Reviewed 06/24/2011 12:00 AM MAMMOGRAM SCREENING Reviewed 06/24/2011 12:00 AM BIOPSY OF UTERUS LINING Reviewed 01/04/2016 12:00 AM X-RAY EXAM OF HAND Reviewed 01/04/2016 12:00 AM CUL BACT XCPT URINE BLOOD/STOOL AEROBIC ISOL Reviewed 01/09/2016 12:00 AM HEP B SURFACE ANTIBODY Reviewed 01/09/2016 12:00 AM HEPATITIS B SURFACE AG EIA Reviewed 01/09/2016 12:00 AM HERPES SIMPLEX 1 AG IF Reviewed 07/14/2011 12:00 AM COMPLETE CBC W/AUTO DIFF WBC Reviewed 07/14/2011 12:00 AM COMPREHEN METABOLIC PANEL Reviewed 07/14/2011 12:00 AM Type and screen Reviewed 03/04/2016 12:00 AM FLU VACC 4 ROB 3 YRS PLUS IM Reviewed 03/04/2016 12:00 AM TISSUE EXAM FOR FUNGI Reviewed 03/04/2016 12:00 AM SMEAR WET MOUNT SALINE/INK Reviewed 03/04/2016 12:00 AM SMEAR WET MOUNT SALINE/INK Reviewed 03/04/2016 12:00 AM VIRUS INOCULATION TISSUE Reviewed 04/07/2016 10:59 AM URINALYSIS AUTO W/O SCOPE Reviewed 04/07/2016 12:00 AM URINE CULTURE/COLONY COUNT Reviewed 04/24/2016 12:00 AM Toradol 60 Mg [facility]#6382-9732-30 Reviewed 06/11/2016 12:00 AM Consult/Referral Reviewed 06/11/2016 2:41 PM URINALYSIS AUTO W/O SCOPE Reviewed 06/11/2016 12:00 AM URINE CULTURE/COLONY COUNT Reviewed 06/13/2016 12:00 AM Splint, prefabricated, wrist or ankle Reviewed 07/31/2016 12:00 AM LIPID PANEL Reviewed 07/31/2016 12:00 AM MAMMOGRAPHY SCREENING, DIGITAL Reviewed 10/29/2011 12:00 AM CYSTOMETROGRAM W/PUBLIC POLICY ASSOCIATE&UP Reviewed 10/29/2011 12:00 AM ELECTRO-UROFLOWMETRY FIRST Reviewed 10/29/2011 12:00 AM INTRAABDOMINAL PRESSURE TEST Reviewed 11/12/2011 12:00 AM X-RAY URETHRA/BLADDER Reviewed 11/12/2011 12:00 AM X-RAY EXAM SI JOINTS 3/> VWS Reviewed 01/28/2012 12:00 AM MRI LUMBAR SPINE W/O DYE Reviewed 02/20/2017 12:00 AM TDAP VACCINE 7 YRS/> IM Reviewed 02/20/2017 12:00 AM FLU VAC NO PRSV 4 ROB 3 YRS+ Reviewed 02/20/2017 12:00 AM IMMUNIZATION ADMIN Reviewed 02/20/2017 12:00 AM IMMUNIZATION ADMIN EACH ADD Reviewed 03/24/2017 12:00 AM INJECT SPINE LUMBAR/SACRAL Returned 04/20/2012 12:00 AM THER/PROPH/DIAG INJ SC/IM Reviewed 04/20/2012 12:00 AM Depo-Medrol, Per 120 Mg [facility]#4942-0750-52 Reviewed 07/20/2017 12:00 AM INJECT SPINE LUMBAR/SACRAL Returned 2017 12:00 AM COMPLETE CBC W/AUTO DIFF WBC Returned 2017 12:00 AM COMPREHEN METABOLIC PANEL Returned 2017 12:00 AM LIPID PANEL Returned 2017 12:00 AM ASSAY THYROID STIM HORMONE Returned 2017 12:00 AM MAMMOGRAPHY SCREENING, DIGITAL Returned 07/21/2012 12:00 AM THER/PROPH/DIAG INJ SC/IM Reviewed 07/21/2012 12:00 AM Depo-Medrol, Per 120 Mg [facility]#5242-5833-79 Reviewed 10/14/2017 12:38 PM ASSAY GLUCOSE BLOOD QUANT Reviewed 10/14/2017 12:38 PM GLUCOSE BLOOD TEST Reviewed 11/03/2017 12:00 AM Injection(s), of diagnostic or therapeutic substance(s) (eg , ane Returned 09/01/2012 12:00 AM Drug Screen (Non-Medicare) Reviewed 09/01/2012 12:00 AM DRAIN/INJ JOINT/BURSA W/O US Reviewed 09/01/2012 12:00 AM Kenalog, Per 10 Mg [facility]#6049-6143-57 Reviewed 11/19/2017 12:00 AM THER/PROPH/DIAG INJ SC/IM Reviewed 11/19/2017 12:00 AM Decadron 4mg Injection Reviewed 11/19/2017 12:00 AM Depo-Medrol 40mg Injection Reviewed 11/02/2012 12:00 AM Norflex, Up to 60 Mg [facility]#02673-964-08 Reviewed 11/02/2012 12:00 AM INJ TRIGGER POINT 1/2 MUSCL Reviewed 11/02/2012 12:00 AM Bupivicaine, 30 ml [facility]#9348-0993-56 Reviewed 11/02/2012 12:00 AM THER/PROPH/DIAG INJ SC/IM Reviewed 11/02/2012 12:00 AM Norflex, Up to 60 Mg [facility]#65069-138-00 Reviewed 12/27/2012 12:00 AM COMPLETE CBC W/AUTO DIFF WBC Reviewed 12/27/2012 12:00 AM COMPREHEN METABOLIC PANEL Reviewed 12/27/2012 12:00 AM ASSAY THYROID STIM HORMONE Reviewed 12/27/2012 12:00 AM VITAMIN B-12 Reviewed 12/27/2012 12:00 AM ASSAY OF FERRITIN Reviewed 12/27/2012 12:00 AM ANTINUCLEAR ANTIBODIES Reviewed 12/27/2012 12:00 AM DNA ANTIBODY SQUAXIN Reviewed 12/27/2012 12:00 AM NUCLEAR ANTIGEN ANTIBODY Reviewed 12/27/2012 12:00 AM RHEUMATOID FACTOR QUANT Reviewed 12/27/2012 12:00 AM COMPLEMENT ANTIGEN Reviewed 12/27/2012 12:00 AM THROMBOPLASTIN TIME PARTIAL Reviewed 12/27/2012 12:00 AM RBC SED RATE AUTOMATED Reviewed 12/27/2012 12:00 AM ASSAY OF MAGNESIUM Reviewed 01/25/2013 12:00 AM COMPREHEN METABOLIC PANEL Reviewed 03/02/2013 12:00 AM IMMUNIZATION ADMIN Reviewed 03/02/2013 12:00 AM FLU VACCINE 3 YRS & > IM Reviewed 03/22/2013 12:00 AM ASSAY OF VITAMIN B-1 Reviewed 03/22/2013 12:00 AM Hip Complete Min 2Views - MOB Reviewed 03/22/2013 12:00 AM Sacroiliac Joints Min 3Views - MOB Reviewed 05/11/2013 12:00 AM MRI PELVIS W/O DYE Reviewed 05/31/2013 12:00 AM Decadron, Per 1 Mg [facility]# [address]-40 Reviewed 05/31/2013 12:00 AM Depo-Medrol, Per 80 Mg [facility]#8550-3219-56 Reviewed 05/31/2013 12:00 AM THER/PROPH/DIAG INJ SC/IM Reviewed 06/06/2013 12:00 AM MUSCLE TEST 2 LIMBS Reviewed 06/06/2013 12:00 AM Nerve conduction studies with F-wave Reviewed 08/26/2013 12:00 AM MAMMOGRAM SCREENING Reviewed 08/26/2013 12:00 AM MAMMOGRAM SCREENING Reviewed 08/30/2013 12:00 AM THER/PROPH/DIAG INJ SC/IM Reviewed 08/30/2013 12:00 AM Decadron, Per 1 Mg [facility]# [address]-77 Reviewed 08/30/2013 12:00 AM Depo-Medrol, Per 80 Mg [facility]#3592-3355-16 Reviewed 11/17/2013 12:00 AM THER/PROPH/DIAG INJ SC/IM Reviewed 11/17/2013 12:00 AM Decadron, Per 1 Mg [facility]# [address]-31 Reviewed 11/17/2013 12:00 AM Depo-Medrol 40mg Reviewed 01/06/2014 12:00 AM THER/PROPH/DIAG INJ SC/IM Reviewed 01/06/2014 12:00 AM Decadron, Per 1 Mg [facility]# [address]-80 Reviewed 01/06/2014 12:00 AM Rocephin 1 gram [facility]#5738-7504-21 Reviewed 01/10/2014 12:00 AM OFFICE/OUTPATIENT VISIT EST Reviewed 02/24/2014 12:00 AM MRI LUMBAR SPINE W/O DYE Reviewed 02/28/2014 12:00 AM IMMUNIZATION ADMIN EACH ADD Reviewed 02/28/2014 12:00 AM PNEUMOCOCCAL POLYSAC VACCINE 23-V 2 YRS/>SUBQ/IM Reviewed 02/28/2014 12:00 AM FLU VAC NO PRSV 4 ROB 3 YRS+ Reviewed 02/28/2014 12:00 AM CHEST X-RAY 2VW FRONTAL&LATL Reviewed 02/28/2014 12:00 AM LEGIONELLA ANTIBODY Reviewed 02/28/2014 12:00 AM MYCOPLASMA ANTIBODY Reviewed 02/28/2014 12:00 AM BORDETELLA ANTIBODY Reviewed 02/28/2014 12:00 AM COMPLETE CBC W/AUTO DIFF WBC Reviewed 02/28/2014 12:00 AM CULTURE OTHR SPECIMN AEROBIC Reviewed 2014 12:00 AM COMPREHEN METABOLIC PANEL Reviewed 2014 12:00 AM LIPID PANEL Reviewed 2014 12:00 AM COMPLETE CBC W/AUTO DIFF WBC Reviewed 08/17/2014 12:00 AM MAMMOGRAM SCREENING Reviewed 08/17/2014 12:00 AM MAMMOGRAM BOTH BREASTS Reviewed 10/12/2014 12:00 AM THER/PROPH/DIAG INJ SC/IM Reviewed 10/12/2014 12:00 AM Decadron, Per 1 Mg [facility]# [address]-01 Reviewed 10/12/2014 12:00 AM Depo-Medrol 40mg Reviewed 11/23/2014 12:00 AM OFFICE/OUTPATIENT VISIT EST Reviewed 12/14/2014 12:00 AM OFFICE/OUTPATIENT VISIT EST Reviewed Results Summary Date and Description Results 06/23/2011 2:25 PM FSH 7.70 mIU/mLTSH 0.890 uIU/mL 06/26/2011 9:37 AM Colonoscopy-Women and Men over 50 Declined Mammogram -Women over 40 Ordered Pap Smear Collected 07/14/2011 12:10 PM WBC 11.2 RBC 4.78 HGB 14.60 g/dLHCT 44.70 %MCV 94.0 fLMCH 30.50 pgMCHC 32.70 g/dLRDW SD 45 RDW CV 13.10 %MPV 10.0 fLPLT 284 NRBC# 0.00 NRBC% 0.0 %NEUT 71.90 %%LYMP 18.10 %%MONO 8.80 %%EOS 0.90 %%BASO 0.30 %#NEUT 8.06 #LYMP 2.03 #MONO 0.99 #EOS 0.10 #BASO 0.03 MANUAL DIFF NOT IND GLUCOSE 99.0 mg/dLSODIUM 139.0 mmol/LPOTASSIUM 4.40 mmol/LCHLORIDE 103.0 mmol/LCO2 25.0 mmol/LBUN 13.0 mg/dLCREATININE 0.70 mg/dLSGOT/AST 15.0 IU/LSGPT/ALT 17.0 IU/ LALK PHOS 73.0 IU/LTOTAL PROTEIN 7.30 g/dLALBUMIN 4.60 g/dLTOTAL BILI 0.70 mg/ dLCALCIUM 9.10 mg/dLAGE 45 GFR NonAA 91 GFR AA 110 eGFR >60 mL/min/1.73 m2eGFR AA* >60 12/30/2012 11:35 AM WBC 6.7 RBC 4.98 HGB 15.20 g/dLHCT 45.50 %MCV 91.0 fLMCH 30.50 pgMCHC 33.40 g/dLRDW SD 42 RDW CV 12.70 %MPV 9.60 fLPLT 322 NRBC# 0.00 NRBC% 0.0 %NEUT 63.0 %%LYMP 27.50 %%MONO 7.90 %%EOS 1.30 %%BASO 0.30 %#NEUT 4.23 #LYMP 1.85 #MONO 0.53 #EOS 0.09 #BASO 0.02 MANUAL DIFF NOT IND SEDRATE 10.0 mm/hrGLUCOSE 99.0 mg/dLSODIUM 142.0 mmol/LPOTASSIUM 4.80 mmol/LCHLORIDE 104.0 mmol/LCO2 29.0 mmol/LBUN 17.0 mg/dLCREATININE 0.80 mg/dLSGOT/AST 29.0 IU/ LSGPT/ALT 33.0 IU/LALK PHOS 76.0 IU/LTOTAL PROTEIN 7.60 g/dLALBUMIN 4.70 g/ dLTOTAL BILI 0.80 mg/dLCALCIUM 10.90 mg/dLAGE 47 GFR NonAA 78 GFR AA 95 eGFR 60 eGFR AA* 60 MAGNESIUM 2.30 mg/dLTSH 0.710 uIU/mLFERRITIN 102.0 ng/mLVITAMIN B12 483.0 pg/mL 01/25/2013 4:18 PM GLUCOSE 118.0 mg/dLSODIUM 140.0 mmol/LPOTASSIUM 3.40 mmol/ LCHLORIDE 104.0 mmol/LCO2 26.0 mmol/LBUN 12.0 mg/dLCREATININE 0.80 mg/dLSGOT/ AST 34.0 IU/LSGPT/ALT 37.0 IU/LALK PHOS 84.0 IU/LTOTAL PROTEIN 7.0 g/dLALBUMIN 4.50 g/dLTOTAL BILI 0.80 mg/dLCALCIUM 9.80 mg/dLAGE 47 GFR NonAA 78 GFR AA 95 eGFR 60 eGFR AA* 60 02/28/2014 11:05 AM WBC 7.5 RBC 4.22 HGB 12.90 g/dLHCT 38.50 %MCV 91.0 fLMCH 30.60 pgMCHC 33.50 g/dLRDW SD 42 RDW CV 12.30 %MPV 8.80 fLPLT 280 NRBC# 0.00 NRBC% 0.0 %NEUT 49.50 %%LYMP 38.10 %%MONO 9.20 %%EOS 2.80 %%BASO 0.40 %#NEUT 3.71 #LYMP 2.85 #MONO 0.69 #EOS 0.21 #BASO 0.03 MANUAL DIFF PENDING WBC 7.5 RBC 4.22 HGB 12.90 g/dLHCT 38.50 %MCV 91.0 fLMCH 30.60 pgMCHC 33.50 g/dLRDW SD 42 RDW CV 12.30 %MPV 8.80 fLPLT 280 NRBC# 0.00 NRBC% 0.0 %NEUT 49.50 %%LYMP 38.10 % %MONO 9.20 %%EOS 2.80 %%BASO 0.40 %#NEUT 3.71 #LYMP 2.85 #MONO 0.69 #EOS 0.21 # BASO 0.03 MANUAL DIFF SEE BELOW SEGS 46 LYMPHS 46 MONOS 7 EOS 1.0 % 02/28/2014 4:08 PM M pneumoniae IgG Abs 389.0 U/mLM pneumoniae IgM Abs <770 U/ mLLegionella pneumophilaAbs. <0.91 08/17/2014 11:05 AM WBC 5.8 RBC 4.31 HGB 13.0 g/dLHCT 39.10 %MCV 91.0 fLMCH 30.20 pgMCHC 33.20 g/dLRDW SD 42 RDW CV 12.70 %MPV 9.20 fLPLT 300 NRBC# 0.00 NRBC% 0.0 %NEUT 31.40 %%LYMP 53.80 %%MONO 11.20 %%EOS 2.90 %%BASO 0.70 %#NEUT 1.81 #LYMP 3.11 #MONO 0.65 #EOS 0.17 #BASO 0.04 MANUAL DIFF NOT IND TRIGLYCERIDES 83.0 mg/dLCHOLESTEROL 227.0 mg/dLHDL 61.0 mg/dLTOT CHOL/HDL 3.7 LDL (CALC) 149.0 mg/dLGLUCOSE 97.0 mg/dLSODIUM 140.0 mmol/LPOTASSIUM 3.90 mmol/ LCHLORIDE 106.0 mmol/LCO2 24.0 mmol/LBUN 17.0 mg/dLCREATININE 0.80 mg/dLSGOT/ AST 38.0 IU/LSGPT/ALT 28.0 IU/LALK PHOS 95.0 IU/LTOTAL PROTEIN 7.10 g/dLALBUMIN 4.40 g/dLTOTAL BILI 1.20 mg/dLCALCIUM 10.10 mg/dLAGE 49 GFR NonAA 77 GFR AA 93 eGFR >60 mL/min/1.73 m2eGFR AA* >60 06/21/2015 4:50 PM WBC 7.5 RBC 4.43 HGB 13.50 g/dLHCT 41.20 %MCV 93.0 fLMCH 30.50 pgMCHC 32.80 g/dLRDW SD 43 RDW CV 12.60 %MPV 8.70 fLPLT 308 NRBC# 0.00 NRBC% 0.0 %NEUT 54.20 %%LYMP 35.0 %%MONO 8.20 %%EOS 2.30 %%BASO 0.30 %#NEUT 4.05 #LYMP 2.61 #MONO 0.61 #EOS 0.17 #BASO 0.02 MANUAL DIFF NOT IND TROPONIN-I AD <0.04 ng/mLGLUCOSE 91.0 mg/dLSODIUM 140.0 mmol/LPOTASSIUM 3.60 mmol/ LCHLORIDE 105.0 mmol/LCO2 23.0 mmol/LBUN 10.0 mg/dLCREATININE 0.80 mg/dLSGOT/ AST 25.0 IU/LSGPT/ALT 19.0 IU/LALK PHOS 85.0 IU/LTOTAL PROTEIN 7.0 g/dLALBUMIN 4.50 g/dLTOTAL BILI 0.40 mg/dLCALCIUM 9.50 mg/dLAGE 49 GFR NonAA 77 GFR AA 93 eGFR >60 mL/min/1.73meGFR AA* >60 D-DIMER QUANT 0.33 01/09/2016 4:20 PM HBsAg Screen Negative Hep B Surface Ab, Qual Reactive Index ValueHSV 1 IgG, Type Spec 25.40 IndexHSV 2 IgG, Type Spec <0.91 Index 03/04/2016 2:50 PM WET PREP NO TRICH SEEN CLUE CELLS NONE SEEN SOURCE: VAGINAL LESION Viral Culture, General No virus isolated. 04/07/2016 10:59 AM Clarity Ur cloudy Color Ur yellow Glucose Ur-sCnc neg Bilirub Ur Ql Strip neg Ketones Ur Ql Strip neg Sp Gr Ur Qn 1.030 Hgb Ur Ql Strip trace-intact pH Ur-LsCnc 5.5 Prot Ur Ql Strip 30mg/dl Urobilinogen Ur- mCnc 0.2eu/dl Nitrite Ur Ql Strip neg WBC Est Ur Ql Strip large 06/11/2016 2:41 PM Clarity Ur clear Color Ur yellow Glucose Ur-sCnc neg Bilirub Ur Ql Strip neg Ketones Ur Ql Strip Trace Sp Gr Ur Qn >=1.030 Hgb Ur Ql Strip neg pH Ur-LsCnc 5.0 Prot Ur Ql Strip Trace Urobilinogen Ur-mCnc 0.2 E.U/ dL Nitrite Ur Ql Strip neg WBC Est Ur Ql Strip Small 08/29/2016 9:30 AM TRIGLYCERIDES 147.0 mg/dLCHOLESTEROL 173.0 mg/dLHDL 48.0 mg/ dLTOT CHOL/HDL 3.6 LDL (CALC) 96.0 mg/dL 10/14/2017 12:38 PM Glucose SerPl-mCnc 84.0 mg/dL History Of Immunizations Name Date Admin Mfg Name Mfg Code Trade Name Lot# Route Inj Vis Given Vis Pub CVX Influenza 03/02/2013 sanofi pasteur PMC FLUZONE [id number] Intramuscular Left Deltoid 03/02/2013 12/17/2012 141 X 02/28/2014 [employer] MSD PNEUMOVAX 23 [id number] Intramuscular Left Deltoid 02/28/2014 02/27/2009 33 Influenza 03/23/2015 sanofi pasteur PMC Fluzone Quadrivalent [id number] Intramuscular Right Deltoid 03/23/2015 12/29/2014 140 Influenza 03/04/2016 [facility] Fluzone Quadrivalent UI [id number] Intramuscular Left Deltoid 03/04/2016 12/29/2014 141 Tdap 02/20/2017 Xcerion SKB BOOSTRIX [id number] Intramuscular Right Arm 02/20/2017 07/18/2014 115 Influenza 02/20/2017 [facility] PMC Fluzone Quadrivalent [id number] Intramuscular Left Arm 02/20/2017 12/29/2014 150 History of Past Illness Name Date of Onset Comments Anxiety Arthritis unspecified Diverticulitis Of Colon Sacroiliitis Abnormal Uterine Bleeding 06/26/2011 Endometrial hyperplasia, unspecified 06/26/2011 Pelvic Pain 06/26/2011 Family history of breast cancer 06/26/2011 Kidney Calculus Constipation Depression and anxiety Back pain Allergic rhinitis 11/17/2013 Depression 03/27/2015 Anxiety 08/17/2014 Insomnia, unspecified type 08/23/2015 Abnormal Uterine Bleeding Jun 24 2011 4:03PM Endometrial hyperplasia, unspecified Jun 24 2011 4:03PM Family History Of Breast Cancer Jun 24 2011 4:03PM Pelvic Pain Jun 24 2011 4:03PM Menorrhagia Jun 24 2011 5:18PM Low Back Pain Feb 2011 9:38AM Osteoarthrosis Jun 26 2011 9:38AM Abdominal Pain b 2011 9:38AM Diverticulosis Of Colon Jun 26 2011 9:38AM Pelvic Pain Jul 14 2011 11:14AM Menorrhagia Jul 14 2011 11:14AM Metrorrhagia Jul 14 2011 11:14AM Family History Of Breast Cancer Jul 14 2011 11:14AM Postoperative Examination Following Surgery Aug 15 2011 4:24PM Postoperative Examination Following Surgery Sep 04 2011 4:59PM Low Back Pain Oct 07 2011 3:53PM Osteoarthrosis Oct 07 2011 3:53PM Diverticulosis Of Colon Oct 07 2011 3:53PM Anxiety Disorder Oct 07 2011 3:53PM Depressive Disorder Oct 07 2011 3:53PM Stress Incontinence Oct 28 2011 9:27AM Low Back Pain Nov 12 2011 10:48AM Atrophic Vaginitis, Postmenopausal Dec 03 2011 3:48PM Low Back Pain Jan 19 2012 3:25PM Osteoarthrosis Jan 19 2012 3:25PM Anxiety Disorder Jan 19 2012 3:25PM Depressive Disorder Jan 19 2012 3:25PM Diverticulosis Of Colon Jan 19 2012 3:25PM Radiculopathy, lumbosacral Sep 2011 9:12AM SI joint pain Sep 2011 9:12AM Radiculopathy, lumbosacral Sep 2011 3:58PM SI joint pain Feb 11 2012 3:58PM Radiculopathy, lumbosacral Nov 2011 3:40PM SI joint pain Mar 29 2012 3:40PM Low Back Pain Apr 20 2012 4:04PM Osteoarthrosis Apr 20 2012 4:04PM Anxiety Disorder Apr 20 2012 4:04PM Depressive Disorder Apr 20 2012 4:04PM Rhinitis, Allergic Apr 20 2012 4:04PM Diverticulosis Of Colon Apr 20 2012 4:04PM Radiculopathy, lumbosacral Apr 28 2012 4:10PM SI joint pain Apr 28 2012 4:10PM Screening Mammogram Jun 10 2012 11:54AM Radiculopathy, lumbosacral Jun 16 2012 4:12PM SI joint pain Jun 16 2012 4:12PM Low Back Pain Jul 21 2012 4:08PM Osteoarthrosis Jul 21 2012 4:08PM Anxiety Disorder Jul 21 2012 4:08PM Depressive Disorder Jul 21 2012 4:08PM Rhinitis, Allergic Jul 21 2012 4:08PM Diverticulosis Of Colon Jul 21 2012 4:08PM Anorexia Jul 21 2012 4:08PM Radiculopathy, lumbosacral Sep 01 2012 3:06PM SI joint pain Sep 01 2012 3:06PM retirement medication use Sep 01 2012 4:05PM Wrist pain Sep 01 2012 4:03PM Radiculopathy, lumbosacral Sep 30 2012 3:28PM SI joint pain Sep 30 2012 3:28PM Anorexia Nov 02 2012 9:19AM Low Back Pain Nov 02 2012 9:19AM Osteoarthrosis Nov 02 2012 9:19AM Anxiety Disorder Nov 02 2012 9:19AM Depressive Disorder Nov 02 2012 9:19AM Diverticulosis Of Colon Nov 02 2012 9:19AM Skin lesions Nov 02 2012 9:19AM Radiculopathy, lumbosacral Nov 02 2012 10:06AM SI joint pain Nov 02 2012 10:06AM myofascial pain Nov 02 2012 10:50AM myofascial pain Nov 02 2012 11:27AM Radiculopathy, lumbosacral Nov 24 2012 1:24PM SI joint pain Nov 24 2012 1:24PM Radiculopathy, lumbosacral Dec 27 2012 2:08PM SI joint pain Dec 27 2012 2:08PM Fatigue Dec 27 2012 2:08PM Neuralgia Dec 27 2012 2:08PM Restless legs syndrome (RLS) Dec 27 2012 2:08PM Polyarthralgia Dec 27 2012 2:08PM Radiculopathy, lumbosacral Jan 25 2013 3:35PM SI joint pain Jan 3 2012 3:35PM Neuralgia Jan 3 2012 3:35PM Anxiety Disorder Jan 6 2012 8:51AM Radiculopathy, lumbosacral Feb 22 2013 4:00PM SI joint pain Feb 22 2013 4:00PM Neuralgia Feb 22 2013 4:00PM Flu Mar 02 2013 4:28PM Low Back Pain Mar 02 2013 3:53PM Osteoarthrosis Mar 02 2013 3:53PM Anxiety Disorder Mar 02 2013 3:53PM Depressive Disorder Mar 02 2013 3:53PM Rhinitis, Allergic Mar 02 2013 3:53PM Radiculopathy, lumbosacral Mar 04 2013 9:06AM SI joint pain Mar 04 2013 9:06AM Neuralgia Mar 04 2013 9:06AM Radiculopathy, lumbosacral Mar 10 2013 3:32PM SI joint pain Mar 10 2013 3:32PM Neuralgia Mar 10 2013 3:32PM Radiculopathy, lumbosacral Mar 22 2013 3:33PM SI joint pain Mar 22 2013 3:33PM Neuralgia Mar 22 2013 3:33PM Pain in joint; Right Hip Mar 22 2013 3:33PM Radiculopathy, lumbosacral May 11 2013 3:06PM SI joint pain May 11 2013 3:06PM Neuralgia May 11 2013 3:06PM Pain in joint; Right Hip May 11 2013 3:06PM Depression May 31 2013 10:01AM Rhinitis, Allergic May 31 2013 10:01AM Anxiety Disorder May 31 2013 10:01AM Radiculopathy, lumbosacral Jun 06 2013 9:51AM SI joint pain Jun 06 2013 9:51AM Neuralgia Jun 06 2013 9:51AM Pain in joint; Right Hip Jun 06 2013 9:51AM Radiculopathy, lumbosacral Feb 2013 9:09AM SI joint pain Jul 01 2013 9:09AM Neuralgia b 2013 9:09AM Pain in joint; Right Hip Jul 01 2013 9:09AM Lumbosacral Radiculopathy Jul 06 2013 8:30AM Radiculopathy, lumbosacral Jul 29 2013 9:01AM SI joint pain Jul 29 2013 9:01AM Neuralgia Jul 29 2013 9:01AM Pain in joint; Right Hip Jul 29 2013 9:01AM Screening Mammogram Aug 22 2013 3:05PM Screening Examination for Breast Cancer Aug 26 2013 9:01AM Rhinitis, Allergic Aug 30 2013 2:27PM Arthritis unspecified Aug 30 2013 2:27PM Depression and anxiety Aug 30 2013 2:27PM Radiculopathy, lumbosacral Sep 22 2013 8:39AM SI joint pain Sep 22 2013 8:39AM Neuralgia Sep 22 2013 8:39AM Pain in joint; Right Hip Sep 22 2013 8:39AM Radiculopathy, lumbosacral Oct 20 2013 8:22AM SI joint pain Oct 20 2013 8:22AM Neuralgia Oct 20 2013 8:22AM Pain in joint; Right Hip Oct 20 2013 8:22AM Radiculopathy, lumbosacral Nov 17 2013 9:07AM SI joint pain Nov 17 2013 9:07AM Neuralgia Nov 17 2013 9:07AM Pain in joint; Right Hip Nov 17 2013 9:07AM Arthritis unspecified Nov 17 2013 10:31AM Depression and anxiety Nov 17 2013 10:31AM Allergic rhinitis Nov 17 2013 10:31AM Radiculopathy, lumbosacral Dec 15 2013 9:18AM SI joint pain Dec 15 2013 9:18AM Neuralgia Dec 15 2013 9:18AM Pain in joint; Right Hip Dec 15 2013 9:18AM Sinusitis, Acute Jan 06 2014 10:05AM Upper Respiratory Infections Jan 06 2014 10:05AM Chronic pain syndrome Jan 10 2014 8:30AM Lumbago Jan 10 2014 8:30AM Radiculopathy, lumbosacral Feb 06 2014 4:15PM SI joint pain Feb 06 2014 4:15PM Neuralgia Feb 06 2014 4:15PM Pain in joint; Right Hip Feb 06 2014 4:15PM Radiculopathy, lumbosacral Feb 24 2014 8:29AM SI joint pain Feb 24 2014 8:29AM Neuralgia Feb 24 2014 8:29AM Pain in joint; Right Hip Feb 24 2014 8:29AM Cough Feb 28 2014 9:29AM Arthritis unspecified Feb 28 2014 9:29AM Depression and anxiety Feb 28 2014 9:29AM Allergic rhinitis Feb 28 2014 9:29AM Flu and Pneumonia vaccines Feb 28 2014 11:59AM Radiculopathy, lumbosacral Mar 10 2014 11:10AM SI joint pain Mar 10 2014 11:10AM Pain in joint; Right Hip Mar 10 2014 11:10AM Radiculopathy, lumbosacral Apr 05 2014 2:53PM SI joint pain Apr 05 2014 2:53PM Anxiety Disorder Apr 26 2014 3:43PM Depressive Disorder Apr 26 2014 3:43PM Tobacco Abuse Apr 26 2014 3:43PM Cough Apr 26 2014 3:43PM Chronic pain syndrome Jun 28 2014 2:28PM Anxiety Disorder 2014 11:18AM Depressive Disorder 2014 11:18AM Tobacco Abuse, History 2014 11:18AM Routine adult health maintenance 2014 11:18AM Ischemic heart disease screen 2014 11:18AM Radiculopathy, lumbosacral 2014 2:11PM SI joint pain 2014 2:11PM Pain in joint; Right Hip 2014 2:11PM Radiculopathy, lumbosacral Aug 14 2014 10:12AM SI joint pain Aug 14 2014 10:12AM Pain in joint; Right Hip Aug 14 2014 10:12AM Screening Mammogram Aug 17 2014 11:47AM Screening breast examination Aug 17 2014 11:19AM Sinusitis Aug 17 2014 11:19AM Depression Aug 17 2014 11:19AM Anxiety Aug 17 2014 11:19AM Chronic pain syndrome Oct 05 2014 3:12PM Sinusitis, Acute Oct 12 2014 3:38PM Anxiety Oct 12 2014 3:38PM Depression Oct 12 2014 3:38PM Muscle ache Oct 12 2014 3:38PM Chronic pain syndrome Nov 23 2014 10:02AM Radiculopathy, lumbosacral May 31 2014 3:03PM SI joint pain May 31 2014 3:03PM Neuralgia May 31 2014 3:03PM Pain in joint; Right Hip May 31 2014 3:03PM Radiculopathy, lumbosacral Jul 27 2014 3:07PM SI joint pain Jul 27 2014 3:07PM Pain in joint; Right Hip Jul 27 2014 3:07PM Radiculopathy, lumbosacral Sep 07 2014 3:04PM SI joint pain Sep 07 2014 3:04PM Pain in joint; Right Hip Sep 07 2014 3:04PM Radiculopathy, lumbosacral Oct 26 2014 3:13PM SI joint pain Oct 26 2014 3:13PM Pain in joint; Right Hip Oct 26 2014 3:13PM Chronic pain syndrome Dec 14 2014 9:35AM Allergic rhinitis Dec 28 2014 9:32AM Anxiety Dec 28 2014 9:32AM Depression Dec 28 2014 9:32AM Arthritis unspecified Dec 28 2014 9:32AM Back pain Dec 28 2014 9:32AM Numbness and tingling Dec 28 2014 9:32AM Radiculopathy, lumbosacral Jan 11 2015 3:13PM SI joint pain Jan 11 2015 3:13PM Pain in joint; Right Hip Jan 11 2015 3:13PM Hand paresthesia Jan 11 2015 3:13PM Tendonitis Feb 07 2015 5:07PM Tendonitis Feb 14 2015 3:08PM Anxiety Mar 23 2015 8:55AM Depression Mar 23 2015 8:55AM Lumbar radiculopathy Apr 12 2015 3:17PM Radiculopathy, lumbosacral Feb 08 2015 1:04PM SI joint pain Feb 08 2015 1:04PM Radiculopathy, lumbosacral Mar 08 2015 12:57PM SI joint pain Mar 08 2015 12:57PM SI joint pain Apr 12 2015 3:17PM Chronic pain syndrome May 03 2015 3:19PM Chest pain on exertion Jun 21 2015 3:51PM Chest pain Jun 22 2015 10:41AM Anxiety Jun 21 2015 3:51PM Depression Jun 21 2015 3:51PM Acute lumbar radiculopathy Jul 11 2015 12:44PM Encounter for mammogram to establish baseline mammogram Jul 19 2015 11:36AM Insomnia, unspecified type Jul 19 2015 11:36AM Anxiety Jul 19 2015 11:36AM Depression Jul 19 2015 11:36AM Family history of breast cancer Jul 19 2015 11:36AM Sacroiliitis Jul 19 2015 11:36AM Anxiety Aug 23 2015 8:26AM Depression Aug 23 2015 8:26AM Sacroiliitis Aug 23 2015 8:26AM Insomnia, unspecified type Aug 23 2015 8:26AM Right-sided low back pain with right-sided sciatica Aug 23 2015 8:26AM Allergic rhinitis Nov 27 2015 9:03AM Anxiety Nov 27 2015 9:03AM Depression Nov 27 2015 9:03AM Insomnia, unspecified type Nov 27 2015 9:03AM Left Thumb tendonitis Jan 04 2016 2:41PM Left Cellulitis of hand Jan 04 2016 2:41PM Exposure to blood or body fluid Jan 09 2016 3:39PM Abrasion of chin, initial encounter Jan 09 2016 3:39PM Anxiety Jan 14 2016 11:33AM Depression Jan 14 2016 11:33AM Insomnia, unspecified type Jan 14 2016 11:33AM Vaginal lesion Mar 04 2016 2:00PM Flu Vaccine Mar 04 2016 3:22PM Anxiety Mar 04 2016 2:00PM Depression Mar 04 2016 2:00PM Insomnia, unspecified type Mar 04 2016 2:00PM Vaginal discharge Mar 04 2016 2:00PM Anxiety Apr 07 2016 9:45AM Moderate episode of recurrent major depressive disorder Apr 07 2016 9:45AM Acute cystitis with hematuria Apr 07 2016 9:45AM Acute midline thoracic back pain Apr 24 2016 8:21AM Acute midline thoracic back pain May 14 2016 10:02AM Acute midline thoracic back pain May 05 2016 9:43AM Dysuria Jun 11 2016 1:26PM Pain in right foot Jun 11 2016 2:05PM Pain in left foot Jun 11 2016 2:05PM Back Pain Jun 11 2016 1:26PM Acute suppurative otitis media of right ear without spontaneous rupture of tympanic membrane, recurrence not specified Jun 11 2016 1:26PM Anxiety Jun 11 2016 1:26PM Depression Jun 11 2016 1:26PM Insomnia, unspecified type Jun 11 2016 1:26PM Pain in right foot Jun 11 2016 1:26PM Pain in left foot Jun 11 2016 1:26PM Muscle spasm Jun 11 2016 1:26PM Thumb tendonitis Jun 05 2016 3:14PM Encounter for screening mammogram for breast cancer Jul 03 2016 3:52PM Encounter for screening mammogram for breast cancer Jul 31 2016 11:22AM Screening for ischemic heart disease Jul 31 2016 11:22AM Anxiety Aug 29 2016 10:37AM Recurrent major depressive disorder, in partial remission Aug 29 2016 10:37AM Insomnia, unspecified type Aug 29 2016 10:37AM Allergic conjunctivitis, bilateral Aug 29 2016 10:37AM Elevated blood pressure reading in office without diagnosis of hypertension Nov 20 2016 1:57PM Anxiety Nov 20 2016 1:57PM Recurrent major depressive disorder, in partial remission Nov 20 2016 1:57PM Primary insomnia Nov 20 2016 1:57PM Seasonal allergic rhinitis due to other allergic trigger Nov 20 2016 1:57PM Hematoma Jan 31 2017 12:36PM Lumbago without sciatica Feb 10 2017 12:55PM Neuropathic pain Feb 10 2017 12:55PM Chronic pain Feb 10 2017 12:55PM Falls Feb 10 2017 12:55PM Pelvic girdle weakness Feb 10 2017 12:55PM Anxiety Feb 20 2017 10:55AM Depression Feb 20 2017 10:55AM Insomnia, unspecified type Feb 20 2017 10:55AM Arthritis unspecified Feb 20 2017 10:55AM Weight gain Feb 20 2017 10:55AM Anxiety May 22 2017 10:39AM Depression May 22 2017 10:39AM Insomnia, unspecified type May 22 2017 10:39AM Other chronic pain May 22 2017 10:39AM Encounter for screening mammogram for breast cancer Jun 17 2017 1:59PM Screening for ischemic heart disease Jun 18 2017 12:38PM Routine gynecological examination 2017 9:57AM Breast cancer screening 2017 9:57AM Fatigue, unspecified type 2017 9:57AM Screening for ischemic heart disease 2017 9:57AM Anxiety 2017 9:57AM Mild episode of recurrent major depressive disorder 2017 9:57AM Low back pain Jul 20 2017 9:40AM Low back pain 2017 9:57AM Other chronic pain 2017 9:57AM Chest pain Oct 13 2017 1:06PM Anesthesia of skin Oct 13 2017 1:06PM Paresthesia of skin Oct 13 2017 1:06PM Fatigue Oct 13 2017 1:06PM Diaphoresis Oct 13 2017 1:06PM Low back pain Nov 03 2017 3:37PM Acute frontal sinusitis, recurrence not specified Nov 04 2017 10:31AM Anxiety Nov 04 2017 10:31AM Depression Nov 04 2017 10:31AM Insomnia, unspecified type Nov 04 2017 10:31AM Allergic rhinitis Nov 19 2017 5:35PM Allergic otitis media of both ears Nov 19 2017 5:35PM Anxiety Jan 27 2018 8:11AM Moderate episode of recurrent major depressive disorder Jan 27 2018 8:11AM Primary insomnia Jan 27 2018 8:11AM Seasonal allergic rhinitis due to pollen Jan 27 2018 8:11AM Payers Insurance Name Company Name Plan Name Plan Number Policy Number Policy Group Number Start Date [employer] [place] [id number] N/A [employer] [place] [id number] Saturday, 2011 [employer] [place] [id number] N/A [employer] [place] [id number] Thursday, 2013 UMR UMR [id number] N/A [employer] Braums [id number] N/A [employer] [place] [id number] N/A Res Care ResCare [id number] N/A [employer] [id number] N/A [employer] [id number] DOI [id number] May [employer] [place] [id number] N/A [employer] [place] [id number] N/A History of Encounters Visit Date Visit Type Provider 01/27/2018 Office visit Chelsea Rodríguez DIRECTOR OF STRATEGIC SOURCING 11/19/2017 Office visit Avril Ayala DIRECTOR OF STRATEGIC SOURCING 11/04/2017 Office visit Chelsea Rodríguez DIRECTOR OF STRATEGIC SOURCING 10/13/2017 [facility] Asha Church MD 10/13/2017 Office visit Chelsea Rodríguez DIRECTOR OF STRATEGIC SOURCING 2017 Office visit Chelsea Rodríguez DIRECTOR OF STRATEGIC SOURCING 05/22/2017 Office visit Chelsea Rodríguez DIRECTOR OF STRATEGIC SOURCING 02/20/2017 Office visit Chelsea Rodríguez DIRECTOR OF STRATEGIC SOURCING 02/10/2017 Office visit Jeremy West DO 01/31/2017 Office visit Dimitri Beebe NP 11/20/2016 Office visit Chelsea Rodríguez DIRECTOR OF STRATEGIC SOURCING 08/29/2016 Office visit Chelsea Rodríguez DIRECTOR OF STRATEGIC SOURCING 07/31/2016 Office visit Chelsea Rodríguez DIRECTOR OF STRATEGIC SOURCING 06/11/2016 Office visit Chelsea Rodríguez DIRECTOR OF STRATEGIC SOURCING 06/05/2016 Office visit Leonardo Cowan DIRECTOR OF STRATEGIC SOURCING 05/14/2016 Office visit Chelsea Rodríguez DIRECTOR OF STRATEGIC SOURCING 05/05/2016 Office visit Leonardo Cowan DIRECTOR OF STRATEGIC SOURCING 04/24/2016 Office visit Chelsea Rodríguez DIRECTOR OF STRATEGIC SOURCING 04/07/2016 Office visit Chelsea Rodríguez DIRECTOR OF STRATEGIC SOURCING 03/04/2016 Office visit Chelsea Rodríguez DIRECTOR OF STRATEGIC SOURCING 01/14/2016 Office visit Chelsea Rodríguez DIRECTOR OF STRATEGIC SOURCING 01/09/2016 Office visit Leonardo Cowan DIRECTOR OF STRATEGIC SOURCING 01/04/2016 Office visit Leonardo Cowan DIRECTOR OF STRATEGIC SOURCING 11/27/2015 Office visit Chelsea Rodríguez DIRECTOR OF STRATEGIC SOURCING 08/23/2015 Office visit Chelsea Rodríguez DIRECTOR OF STRATEGIC SOURCING 07/19/2015 Office visit 07/19/2015 Office visit Chelsea Rodríguez DIRECTOR OF STRATEGIC SOURCING 06/21/2015 Office visit Chelsea Rodríguez DIRECTOR OF STRATEGIC SOURCING 05/03/2015 Nurse visit Adela PORTER 04/12/2015 Office visit Adela Cole EXTENSION WORK DIRECTOR 03/23/2015 Office visit Chelsea Rodríguez DIRECTOR OF STRATEGIC SOURCING 03/08/2015 Office visit Adela Cole EXTENSION WORK DIRECTOR 02/14/2015 Office visit Leonardo Pazran DIRECTOR OF STRATEGIC SOURCING 02/08/2015 Office visit Adela PITTMANP 02/07/2015 Office visit Leonardo Cowan DIRECTOR OF STRATEGIC SOURCING 01/11/2015 Office visit Adela Cole EXTENSION WORK DIRECTOR 12/28/2014 Office visit Chelsea Rodríguez DIRECTOR OF STRATEGIC SOURCING 12/14/2014 Nurse visit Adela Cole EXTENSION WORK DIRECTOR 11/23/2014 Nurse visit Adela Cole EXTENSION WORK DIRECTOR 10/26/2014 Office visit Adela Cole EXTENSION WORK DIRECTOR 10/12/2014 Office visit 10/12/2014 Office visit Chelsea Rodríguez DIRECTOR OF STRATEGIC SOURCING 10/05/2014 Nurse visit Adela Cole EXTENSION WORK DIRECTOR 09/07/2014 Office visit Adela Cole EXTENSION WORK DIRECTOR 08/17/2014 Office visit 08/17/2014 Office visit 08/17/2014 Office visit Chelsea Rodríguez DIRECTOR OF STRATEGIC SOURCING 08/14/2014 Office visit Adela PITTMANP 07/27/2014 Office visit Adela PITTMANP 2014 Office visit Adela PITTMANP 2014 Office visit Mica Lr DIRECTOR OF STRATEGIC SOURCING 06/28/2014 Nurse visit Adela PITTMANP 05/31/2014 Office visit Adela Cole EXTENSION WORK DIRECTOR 05/03/2014 Voided Adela PITTMANP 04/26/2014 Office visit Mica Lr DIRECTOR OF STRATEGIC SOURCING 04/05/2014 Office visit Adela PITTMANP 03/10/2014 Office visit Adela PITTMANP 02/28/2014 Office visit Mica Lr DIRECTOR OF STRATEGIC SOURCING 02/24/2014 Office visit Adela PITTMANP 02/06/2014 Office visit Adela PITTMANP 01/10/2014 Nurse visit Suzan Liang MD 01/06/2014 Office visit Mica Lr DIRECTOR OF STRATEGIC SOURCING 12/15/2013 Office visit Adela PITTMANP 11/17/2013 Office visit Chelsea Rodríguez DIRECTOR OF STRATEGIC SOURCING 11/17/2013 Office visit Adela PITTMANP 10/20/2013 Office visit Adela PITTMANP 09/22/2013 Office visit Adela PITTMANP 08/30/2013 Office visit Chelsea Rodríguez DIRECTOR OF STRATEGIC SOURCING 08/26/2013 Office visit Beti MMarcus Reyna DIRECTOR OF STRATEGIC SOURCING 07/29/2013 Office visit Adela Cole EXTENSION WORK DIRECTOR 07/06/2013 Procedures Elmira Campbell MD 07/01/2013 Office visit Adela Cole EXTENSION WORK DIRECTOR 06/06/2013 Office visit Adela Cole EXTENSION WORK DIRECTOR 05/31/2013 Office visit Chelsea Rodríguez DIRECTOR OF STRATEGIC SOURCING 05/11/2013 Office visit Adela Cole EXTENSION WORK DIRECTOR 03/22/2013 Office visit Adeal Cole EXTENSION WORK DIRECTOR 03/10/2013 Office visit Adela Cole EXTENSION WORK DIRECTOR 03/04/2013 Office visit Adela Cole EXTENSION WORK DIRECTOR 03/02/2013 Office visit Odette Elam MD 02/22/2013 Office visit Adela Cole EXTENSION WORK DIRECTOR 01/28/2013 Office visit Chelsea Rodríguez DIRECTOR OF STRATEGIC SOURCING 01/25/2013 Office visit Adela PITTMANP 12/27/2012 Office visit Adela Cole EXTENSION WORK DIRECTOR 12/07/2012 Hospital Pablo Croft MD 11/24/2012 Office visit Pablo Croft MD 11/02/2012 Office visit Kylah Wright DIRECTOR OF STRATEGIC SOURCING 11/02/2012 Office visit Mica Lr DIRECTOR OF STRATEGIC SOURCING 10/05/2012 [facility] Croft MD 09/30/2012 Office visit Kylah Wright DIRECTOR OF STRATEGIC SOURCING 09/01/2012 Office visit Kylah Wright DIRECTOR OF STRATEGIC SOURCING 07/21/2012 Office visit Odette Elam MD 06/16/2012 Office visit Pablo Croft MD 05/11/2012 Hospital Pablo Croft MD 04/28/2012 Office visit Pablo Croft MD 04/20/2012 Office visit Odette Elam MD 03/29/2012 Office visit Pablo Croft MD 03/16/2012 [facility] Pablo Croft MD 03/09/2012 Hospital Pablo Croft MD 02/24/2012 Hospital Pablo Croft MD 02/11/2012 Office visit Pablo Croft MD 01/28/2012 Office visit Pablo Croft MD 01/19/2012 Office visit Odette Elam MD 12/03/2011 Office visit Reji Bowens MD 11/12/2011 Office visit Alison Antoine DIRECTOR OF STRATEGIC SOURCING 10/28/2011 Procedures Reji Bowens MD 10/07/2011 Office visit Odette Elam MD 09/04/2011 Surgery Reji Bowens MD 08/15/2011 Surgery Reji Bowens MD 07/22/2011 [facility] Naveen Aguilar MD 07/22/2011 [facility] Reji Bowens MD 07/14/2011 Surgery Reji Bowens MD 06/26/2011 Office visit Odette Elam MD 06/24/2011 Office visit Reji Bowens MD 12/04/2010 [facility] Asha Church MD
--- OUTSIDE RECORDS SUMMARY | 2018-02-14 10:33 | XMS REPORT ---
Author Author Chelsea Rodríguez Organization [facility] Address [address] [place], [place] [id number] Care Team Providers Care Nutrition Internship Name Role Phone Chelsea Rodríguez PCP Chelsea [...] then Take 1 tab x 2 days. 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[employer] 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 [...] 11/27/2015 12:00 AM Decadron, Per 1 Mg [facility]# [address]-53 Reviewed 11/27/2015 12:00 AM Depo-Medrol 40mg Reviewed [...] Reviewed 04/24/2016 12:00 AM Toradol 60 Mg [facility]#8089-5857-44 Reviewed 06/11/2016 12:00 AM Consult/Referral Reviewed 06/11/2016 2:41 PM URINALYSIS AUTO W/O SCOPE Reviewed 06/11/2016 12:00 AM URINE CULTURE/COLONY COUNT Reviewed 06/13/2016 12:00 AM Splint, prefabricated, wrist or ankle Reviewed 07/31/2016 12:00 AM LIPID PANEL Reviewed 07/31/2016 12:00 AM MAMMOGRAPHY SCREENING, DIGITAL Reviewed 10/29/2011 12:00 AM CYSTOMETROGRAM W/BOTTOM WHEELER&UP Reviewed 10/29/2011 12:00 AM ELECTRO-UROFLOWMETRY FIRST Reviewed [...] 04/20/2012 12:00 AM Depo-Medrol, Per 120 Mg [facility]#2072-5046-61 Reviewed 07/20/2017 12:00 AM INJECT SPINE LUMBAR/SACRAL Returned 2017 12:00 AM COMPLETE CBC W/AUTO DIFF WBC Returned 2017 12:00 AM COMPREHEN METABOLIC PANEL Returned 2017 12:00 AM LIPID PANEL Returned 2017 12:00 AM ASSAY THYROID STIM HORMONE Returned 2017 12:00 AM MAMMOGRAPHY SCREENING, DIGITAL Returned 07/21/2012 12:00 AM THER/PROPH/DIAG INJ SC/IM Reviewed 07/21/2012 12:00 AM Depo-Medrol, Per 120 Mg [facility]#9037-1164-75 Reviewed 10/14/2017 12:38 PM ASSAY GLUCOSE BLOOD QUANT Reviewed 10/14/2017 12:38 PM GLUCOSE BLOOD TEST Reviewed 11/03/2017 12:00 AM Injection(s), of diagnostic or therapeutic substance(s) (eg , ane Returned 09/01/2012 12:00 AM Drug Screen (Non-Medicare) Reviewed 09/01/2012 12:00 AM DRAIN/INJ JOINT/BURSA W/O US Reviewed 09/01/2012 12:00 AM Kenalog, Per 10 Mg [facility]#5609-2880-45 Reviewed 11/19/2017 12:00 AM THER/PROPH/DIAG INJ SC/IM Reviewed 11/19/2017 12:00 AM Decadron 4mg Injection Reviewed 11/19/2017 12:00 AM Depo-Medrol 40mg Injection Reviewed 11/02/2012 12:00 AM Norflex, Up to 60 Mg [facility]#21337-469-34 Reviewed 11/02/2012 12:00 AM INJ TRIGGER POINT 1/2 MUSCL Reviewed 11/02/2012 12:00 AM Bupivicaine, 30 ml [facility]#0119-7969-13 Reviewed 11/02/2012 12:00 AM THER/PROPH/DIAG INJ SC/IM Reviewed 11/02/2012 12:00 AM Norflex, Up to 60 Mg [facility]#07471-007-13 Reviewed 12/27/2012 12:00 AM COMPLETE CBC W/AUTO DIFF WBC Reviewed 12/27/2012 12:00 AM COMPREHEN METABOLIC PANEL Reviewed 12/27/2012 12:00 AM ASSAY THYROID STIM HORMONE Reviewed 12/27/2012 12:00 AM VITAMIN B-12 Reviewed 12/27/2012 12:00 AM ASSAY OF FERRITIN Reviewed 12/27/2012 12:00 AM ANTINUCLEAR ANTIBODIES Reviewed 12/27/2012 12:00 AM DNA ANTIBODY YOMBA SHOSHONE Reviewed 12/27/2012 12:00 AM NUCLEAR ANTIGEN ANTIBODY [...] 05/31/2013 12:00 AM Decadron, Per 1 Mg [facility]# [address]-40 Reviewed 05/31/2013 12:00 AM Depo-Medrol, Per 80 Mg [place]#1167-7807-62 Reviewed 05/31/2013 12:00 AM THER/PROPH/DIAG INJ SC/IM Reviewed 06/06/2013 12:00 AM MUSCLE TEST 2 LIMBS Reviewed 06/06/2013 12:00 AM Nerve conduction studies with F-wave Reviewed 08/26/2013 12:00 AM MAMMOGRAM SCREENING Reviewed 08/26/2013 12:00 AM MAMMOGRAM SCREENING Reviewed 08/30/2013 12:00 AM THER/PROPH/DIAG INJ SC/IM Reviewed 08/30/2013 12:00 AM Decadron, Per 1 Mg [facility]# [address]-36 Reviewed 08/30/2013 12:00 AM Depo-Medrol, Per 80 Mg [facility]#7591-2581-76 Reviewed 11/17/2013 12:00 AM THER/PROPH/DIAG INJ SC/IM Reviewed 11/17/2013 12:00 AM Decadron, Per 1 Mg [facility]# [address]-54 Reviewed 11/17/2013 12:00 AM Depo-Medrol 40mg Reviewed 01/06/2014 12:00 AM THER/PROPH/DIAG INJ SC/IM Reviewed 01/06/2014 12:00 AM Decadron, Per 1 Mg [facility]# [address]-37 Reviewed 01/06/2014 12:00 AM Rocephin 1 gram [facility]#5844-0411-28 Reviewed 01/10/2014 12:00 AM OFFICE/OUTPATIENT VISIT EST [...] 10/12/2014 12:00 AM Decadron, Per 1 Mg [facility]# [address]-07 Reviewed 10/12/2014 12:00 AM Depo-Medrol 40mg Reviewed [...] CVX Influenza 03/02/2013 [employer] FLUZONE [id number] Intramuscular Left Deltoid 03/02/2013 12/17/2012 141 X 02/28/2014 [employer] MSD PNEUMOVAX 23 [id number] Intramuscular Left Deltoid 02/28/2014 02/27/2009 33 Influenza 03/23/2015 [employer] Fluzone Quadrivalent [id number] Intramuscular Right Deltoid 03/23/2015 12/29/2014 140 Influenza 03/04/2016 [facility] [employer] [facility] Fluzone Quadrivalent UI [id number] Intramuscular Left Deltoid 03/04/2016 12/29/2014 141 Tdap 02/20/2017 [employer] SKB BOOSTRIX [id number] Intramuscular Right Arm 02/20/2017 07/18/2014 115 Influenza 02/20/2017 [employer] [facility] [employer] Fluzone Quadrivalent [id number] Intramuscular Left Arm 02/20/2017 12/29/2014 150 History [...] SI joint pain Sep 01 2012 3:06PM skilled nursing medication use Sep 01 2012 4:05PM Wrist [...] Group Number Start Date [employer] [place] [id number] N/A [employer] [place] [id number] Saturday, 2011 [employer] [place] [id number] N/A [employer] [place] [id number] Thursday, 2013 UMR UMR [id number] N/A [employer] [id number] N/A [employer] [place] [id number] N/A Res Care [employer] [id number] N/A [employer] [id number] N/A [employer] [id number] DOI [id number] May [employer] [place] [id number] N/A [employer] [place] [id number] N/A History of Encounters Visit Date Visit Type Provider 01/27/2018 Office visit Chelsea Rodríguez VETERINARY SURGERY TECHNICIAN 11/19/2017 Office visit Avril Ayala VETERINARY SURGERY TECHNICIAN 11/04/2017 Office visit Chelsea Rodríguez VETERINARY SURGERY TECHNICIAN 10/13/2017 [facility] Asha Church MD 10/13/2017 Office visit Chelsea Rodríguez VETERINARY SURGERY TECHNICIAN 2017 Office visit Chelsea Rodríguez VETERINARY SURGERY TECHNICIAN 05/22/2017 Office visit Chelsea Rodríguez VETERINARY SURGERY TECHNICIAN 02/20/2017 Office visit Chelsea Rodríguez VETERINARY SURGERY TECHNICIAN 02/10/2017 Office visit Jeremy West DO 01/31/2017 Office visit Dimitri Beebe NP 11/20/2016 Office visit Chelsea Rodríguez VETERINARY SURGERY TECHNICIAN 08/29/2016 Office visit Chelsea Rodríguez VETERINARY SURGERY TECHNICIAN 07/31/2016 Office visit Chelsea Rodríguez VETERINARY SURGERY TECHNICIAN 06/11/2016 Office visit Chelsea Rodríguez VETERINARY SURGERY TECHNICIAN 06/05/2016 Office visit Leonardo Cowan VETERINARY SURGERY TECHNICIAN 05/14/2016 Office visit Chelsea Rodríguez VETERINARY SURGERY TECHNICIAN 05/05/2016 Office visit Leonardo Cowan VETERINARY SURGERY TECHNICIAN 04/24/2016 Office visit Chelsea Rodríguez VETERINARY SURGERY TECHNICIAN 04/07/2016 Office visit Chelsea Rodríguez VETERINARY SURGERY TECHNICIAN 03/04/2016 Office visit Chelsea Rodríguez VETERINARY SURGERY TECHNICIAN 01/14/2016 Office visit Chelsea Rodríguez VETERINARY SURGERY TECHNICIAN 01/09/2016 Office visit Leonardo Cowan VETERINARY SURGERY TECHNICIAN 01/04/2016 Office visit Leonardo Cowan VETERINARY SURGERY TECHNICIAN 11/27/2015 Office visit Chelsea Rodríguez VETERINARY SURGERY TECHNICIAN 08/23/2015 Office visit Chelsea Rodríguez VETERINARY SURGERY TECHNICIAN 07/19/2015 Office visit 07/19/2015 Office visit Chelsea Rodríguez VETERINARY SURGERY TECHNICIAN 06/21/2015 Office visit Chelsea Rodríguez VETERINARY SURGERY TECHNICIAN 05/03/2015 Nurse visit Adela PORTER 04/12/2015 Office visit Adela Cole CHARHOUSE WORKER 03/23/2015 Office visit Chelsea Rodríguez VETERINARY SURGERY TECHNICIAN 03/08/2015 Office visit Adela Cole CHARHOUSE WORKER 02/14/2015 Office visit Leonardo Pazran VETERINARY SURGERY TECHNICIAN 02/08/2015 Office visit Adela PITTMANP 02/07/2015 Office visit Leonardo Cowan VETERINARY SURGERY TECHNICIAN 01/11/2015 Office visit Adela Cole CHARHOUSE WORKER 12/28/2014 Office visit Chelsea Rodríguez VETERINARY SURGERY TECHNICIAN 12/14/2014 Nurse visit Adela Cole CHARHOUSE WORKER 11/23/2014 Nurse visit Adela Cole CHARHOUSE WORKER 10/26/2014 Office visit Adela Cole CHARHOUSE WORKER 10/12/2014 Office visit 10/12/2014 Office visit Chelsea Rodríguez VETERINARY SURGERY TECHNICIAN 10/05/2014 Nurse visit Adela Cole CHARHOUSE WORKER 09/07/2014 Office visit Adela Cole CHARHOUSE WORKER 08/17/2014 Office visit 08/17/2014 Office visit 08/17/2014 Office visit Chelsea Rodríguez VETERINARY SURGERY TECHNICIAN 08/14/2014 Office visit Adela PITTMANP 07/27/2014 Office visit Adela PITTMANP 2014 Office visit Adela PITTMANP 2014 Office visit Mica Lr VETERINARY SURGERY TECHNICIAN 06/28/2014 Nurse visit Adela PITTMANP 05/31/2014 Office visit Adela Cole CHARHOUSE WORKER 05/03/2014 Voided Adela PITTMANP 04/26/2014 Office visit Mica Lr VETERINARY SURGERY TECHNICIAN 04/05/2014 Office visit Adela PITTMANP 03/10/2014 Office visit Adela PITTMANP 02/28/2014 Office visit Mica Lr VETERINARY SURGERY TECHNICIAN 02/24/2014 Office visit Adela PITTMANP 02/06/2014 Office visit Adela PITTMANP 01/10/2014 Nurse visit Suzan Liang MD 01/06/2014 Office visit Mica Lr VETERINARY SURGERY TECHNICIAN 12/15/2013 Office visit Adela PITTMANP 11/17/2013 Office visit Chelsea Rodríguez VETERINARY SURGERY TECHNICIAN 11/17/2013 Office visit Adela PITTMANP 10/20/2013 Office visit Adela PITTMANP 09/22/2013 Office visit Adela PITTMANP 08/30/2013 Office visit Chelsea Rodríguez VETERINARY SURGERY TECHNICIAN 08/26/2013 Office visit Beti MMarcus Reyna VETERINARY SURGERY TECHNICIAN 07/29/2013 Office visit Adela Cole CHARHOUSE WORKER 07/06/2013 Procedures Elmira Campbell MD 07/01/2013 Office visit Adela Cole CHARHOUSE WORKER 06/06/2013 Office visit Adela Cole CHARHOUSE WORKER 05/31/2013 Office visit Chelsea Rodríguez VETERINARY SURGERY TECHNICIAN 05/11/2013 Office visit Adela Cole CHARHOUSE WORKER 03/22/2013 Office visit Adela Cole CHARHOUSE WORKER 03/10/2013 Office visit Adela Cole CHARHOUSE WORKER 03/04/2013 Office visit Adela Cole CHARHOUSE WORKER 03/02/2013 Office visit Odette Elam MD 02/22/2013 Office visit Adela Cole CHARHOUSE WORKER 01/28/2013 Office visit Chelsea Rodríguez VETERINARY SURGERY TECHNICIAN 01/25/2013 Office visit Adela PITTMANP 12/27/2012 Office visit Adela Cole CHARHOUSE WORKER 12/07/2012 Hospital Pablo Croft MD 11/24/2012 Office visit Pablo Corft MD 11/02/2012 Office visit Kylah Wright VETERINARY SURGERY TECHNICIAN 11/02/2012 Office visit Mica Lr VETERINARY SURGERY TECHNICIAN 10/05/2012 [facility]ft MD 09/30/2012 Office visit Kylah Wright VETERINARY SURGERY TECHNICIAN 09/01/2012 Office visit Kylah Wright VETERINARY SURGERY TECHNICIAN 07/21/2012 Office visit Odette Elam MD 06/16/2012 Office visit Pablo Croft MD 05/11/2012 Hospital Pablo Croft MD 04/28/2012 Office visit Pablo Croft MD 04/20/2012 Office visit Odette Elam MD 03/29/2012 Office visit Pablo Croft MD 03/16/2012 [facility] Pablo Croft MD 03/09/2012 Hospital Pablo Croft MD 02/24/2012 Hospital Pablo Croft MD 02/11/2012 Office visit Pablo Croft MD 01/28/2012 Office visit Pablo Croft MD 01/19/2012 Office visit Odette Elam MD 12/03/2011 Office visit Reji Bowens MD 11/12/2011 Office visit Alison Antoine VETERINARY SURGERY TECHNICIAN 10/28/2011 Procedures Reji Bowens MD 10/07/2011 Office visit Odette Elam MD 09/04/2011 Surgery Reji Bowens MD 08/15/2011 Surgery Reji Bowens MD 07/22/2011 [facility] Naveen Aguilar MD 07/22/2011 [facility] Reji Bowens MD 07/14/2011 Surgery Reji Bowens MD 06/26/2011 Office visit Odette Elam MD 06/24/2011 Office visit Reji Bowens MD 12/04/2010 [facility] Asha Church MD
--- OUTSIDE RECORDS SUMMARY | 2018-02-14 10:35 | XMS REPORT ---
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 Role Phone Avril Ayala PCP Chelsea Rodríguez PreferredProvider Allergies and Adverse [...] take 1 tablet by oral route daily venlafaxine 75 mg oral capsule,extended release 24hr 08/21/2017 02/17/2018 TAKE 1 CAPSULE BY MOUTH DAILY bupropion HCl 75 mg oral tablet 09/07/2017 take 2 tablets by oral route 2 times a day alprazolam 0.5 mg oral tablet 11/04/2017 02/02/2018 take 1 tablet by oral route Q6 PRN for 30 days meloxicam 15 mg oral tablet 11/13/2017 TAKE 1 TABLET BY MOUTH ONCE DAILY baclofen 10 mg oral tablet 11/13/2017 TAKE 1 TABLET BY ORAL ROUTE DAILY Ambien CR 12.5 mg oral tablet,ext release multiphase 11/13/2017 take 1 tablet (12.5 mg) by oral route once daily at bedtime fluticasone 50 mcg/actuation nasal spray,suspension 12/17/2017 ONE SPRAY INTO EACH NOSTRIL ONCE DAILY Name Start Date Expiration Date SIG Comments [...] then Take 1 tab x 2 days. 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 History of Procedures [...] 11/27/2015 12:00 AM Decadron, Per 1 Mg [facility]# [address]-60 Reviewed 11/27/2015 12:00 AM Depo-Medrol 40mg Reviewed [...] Reviewed 04/24/2016 12:00 AM Toradol 60 Mg [facility]#7767-3708-83 Reviewed 06/11/2016 12:00 AM Consult/Referral Reviewed 06/11/2016 2:41 PM URINALYSIS AUTO W/O SCOPE Reviewed 06/11/2016 12:00 AM URINE CULTURE/COLONY COUNT Reviewed 06/13/2016 12:00 AM Splint, prefabricated, wrist or ankle Reviewed 07/31/2016 12:00 AM LIPID PANEL Reviewed 07/31/2016 12:00 AM MAMMOGRAPHY SCREENING, DIGITAL Reviewed 10/29/2011 12:00 AM CYSTOMETROGRAM W/OPERATIONS DISPATCHER&UP Reviewed 10/29/2011 12:00 AM ELECTRO-UROFLOWMETRY FIRST Reviewed [...] 04/20/2012 12:00 AM Depo-Medrol, Per 120 Mg [facility]#1559-2228-10 Reviewed 07/20/2017 12:00 AM INJECT SPINE LUMBAR/SACRAL Returned 2017 12:00 AM COMPLETE CBC W/AUTO DIFF WBC Returned 2017 12:00 AM COMPREHEN METABOLIC PANEL Returned 2017 12:00 AM LIPID PANEL Returned 2017 12:00 AM ASSAY THYROID STIM HORMONE Returned 2017 12:00 AM MAMMOGRAPHY SCREENING, DIGITAL Returned 07/21/2012 12:00 AM THER/PROPH/DIAG INJ SC/IM Reviewed 07/21/2012 12:00 AM Depo-Medrol, Per 120 Mg [facility]#6866-7247-50 Reviewed 10/14/2017 12:38 PM ASSAY GLUCOSE BLOOD QUANT Reviewed 10/14/2017 12:38 PM GLUCOSE BLOOD TEST Reviewed 11/03/2017 12:00 AM Injection(s), of diagnostic or therapeutic substance(s) (eg , ane Returned 09/01/2012 12:00 AM Drug Screen (Non-Medicare) Reviewed 09/01/2012 12:00 AM DRAIN/INJ JOINT/BURSA W/O US Reviewed 09/01/2012 12:00 AM Kenalog, Per 10 Mg [facility]#9834-7419-09 Reviewed 11/19/2017 12:00 AM THER/PROPH/DIAG INJ SC/IM Reviewed 11/19/2017 12:00 AM Decadron 4mg Injection Reviewed 11/19/2017 12:00 AM Depo-Medrol 40mg Injection Reviewed 11/02/2012 12:00 AM Norflex, Up to 60 Mg [facility]#38626-673-79 Reviewed 11/02/2012 12:00 AM INJ TRIGGER POINT 1/2 MUSCL Reviewed 11/02/2012 12:00 AM Bupivicaine, 30 ml [facility]#4365-[address]-15 Reviewed 11/02/2012 12:00 AM THER/PROPH/DIAG INJ SC/IM Reviewed 11/02/2012 12:00 AM Norflex, Up to 60 Mg [facility]#11969-437-90 Reviewed 12/27/2012 12:00 AM COMPLETE CBC W/AUTO DIFF WBC Reviewed 12/27/2012 12:00 AM COMPREHEN METABOLIC PANEL Reviewed 12/27/2012 12:00 AM ASSAY THYROID STIM HORMONE Reviewed 12/27/2012 12:00 AM VITAMIN B-12 Reviewed 12/27/2012 12:00 AM ASSAY OF FERRITIN Reviewed 12/27/2012 12:00 AM ANTINUCLEAR ANTIBODIES Reviewed 12/27/2012 12:00 AM DNA ANTIBODY FALSE PASS Reviewed 12/27/2012 12:00 AM NUCLEAR ANTIGEN ANTIBODY [...] 05/31/2013 12:00 AM Decadron, Per 1 Mg [facility]# [address]-41 Reviewed 05/31/2013 12:00 AM Depo-Medrol, Per 80 Mg [place]#1083-6201-76 Reviewed 05/31/2013 12:00 AM THER/PROPH/DIAG INJ SC/IM Reviewed 06/06/2013 12:00 AM MUSCLE TEST 2 LIMBS Reviewed 06/06/2013 12:00 AM Nerve conduction studies with F-wave Reviewed 08/26/2013 12:00 AM MAMMOGRAM SCREENING Reviewed 08/26/2013 12:00 AM MAMMOGRAM SCREENING Reviewed 08/30/2013 12:00 AM THER/PROPH/DIAG INJ SC/IM Reviewed 08/30/2013 12:00 AM Decadron, Per 1 Mg [facility]# [address]-86 Reviewed 08/30/2013 12:00 AM Depo-Medrol, Per 80 Mg [facility]#5034-3367-59 Reviewed 11/17/2013 12:00 AM THER/PROPH/DIAG INJ SC/IM Reviewed 11/17/2013 12:00 AM Decadron, Per 1 Mg [facility]# [address]-74 Reviewed 11/17/2013 12:00 AM Depo-Medrol 40mg Reviewed 01/06/2014 12:00 AM THER/PROPH/DIAG INJ SC/IM Reviewed 01/06/2014 12:00 AM Decadron, Per 1 Mg [facility]# [address]-07 Reviewed 01/06/2014 12:00 AM Rocephin 1 gram [facility]#4709-8112-59 Reviewed 01/10/2014 12:00 AM OFFICE/OUTPATIENT VISIT EST [...] 10/12/2014 12:00 AM Decadron, Per 1 Mg [facility]# [address]-52 Reviewed 10/12/2014 12:00 AM Depo-Medrol 40mg Reviewed [...] mg/dL History Of Immunizations Name Date Admin [facility] Name Mf Code Trade Name Lot# Route Inj Vis Given Vis Pub CVX Influenza 03/02/2013 sanofi pasteur PMC FLUZONE [id number] Intramuscular Left Deltoid 03/02/2013 12/17/2012 141 X 02/28/2014 [employer] MSD PNEUMOVAX 23 [id number] Intramuscular Left Deltoid 02/28/2014 02/27/2009 33 Influenza 03/23/2015 sanofi pasteur PMC Fluzone Quadrivalent [id number] Intramuscular Right Deltoid 03/23/2015 12/29/2014 140 Influenza 03/04/2016 sanofi pasteur PMC Fluzone Quadrivalent UI 684 [id number] Intramuscular Left Deltoid 03/04/2016 12/29/2014 141 Tdap 02/20/2017 [employer] SKB BOOSTRIX [id number] Intramuscular Right Arm 02/20/2017 07/18/2014 115 Influenza 02/20/2017 [facility] Fluzone Quadrivalent [id number] Intramuscular Left Arm 02/20/2017 12/29/2014 150 History [...] Low Back Pain Feb 2011 9:38AM Osteoarthrosis b 2011 9:38AM Abdominal Pain Feb 2011 9:38AM Diverticulosis Of Colon b 2011 9:38AM Pelvic Pain b 2011 11:14AM Menorrhagia Jul 14 2011 11:14AM [...] Jan 19 2012 3:25PM Radiculopathy, lumbosacral Sep 5 2011 9:12AM SI joint pain Sep 2011 9:12AM Radiculopathy, lumbosacral Sep 2011 3:58PM SI joint pain Sep 2011 3:58PM Radiculopathy, lumbosacral Mar 29 2012 3:40PM SI joint pain Mar 29 2012 [...] SI joint pain Sep 01 2012 3:06PM long-term medication use Sep 01 2012 4:05PM Wrist [...] Polyarthralgia Dec 27 2012 2:08PM Radiculopathy, lumbosacral Sep 3 2012 3:35PM SI joint pain Jan 25 2013 3:35PM Neuralgia Jan 3 2012 3:35PM Anxiety [...] Hip Jun 06 2013 9:51AM Radiculopathy, lumbosacral b 2013 9:09AM SI joint pain Jul 01 2013 9:09AM Neuralgia Jul 01 2013 9:09AM Pain in joint; Right Hip [...] of both ears Nov 19 2017 5:35PM Payers Insurance Name Company Name Plan Name Plan Number Policy Number Policy Group Number Start Date [employer] [place] [id number] N/A [employer] [place] [id number] Saturday, 2011 [employer] [place] [id number] N/A [employer] [place] [id number] Thursday, 2013 UMR UMR [id number] N/A [employer] [id number] N/A [employer] [place] [id number] N/A Res Care ResCare [id number] N/A [facility] [id number] N/A Res Care ResCare [id number] DOI [id number] May [employer] [facility] [id number] N/A History of Encounters Visit Date Visit Type Provider 11/19/2017 Office visit Avril Ayala SAND SHOVELER 11/04/2017 Office visit Chelsea Marcos SAND SHOVELER 10/13/2017 [facility] Asha Church MD 10/13/2017 Office visit Chelsea Walker SAND SHOVELER 2017 Office visit Chelsea Walker SAND SHOVELER 05/22/2017 Office visit Chelsea Walker SAND SHOVELER 02/20/2017 Office visit Chelsea Walker SAND SHOVELER 02/10/2017 Office visit Jeremy West DO 01/31/2017 Office visit Dimitri Beebe NP 11/20/2016 Office visit Chelsea Walker SAND SHOVELER 08/29/2016 Office visit Chelsea Walker SAND SHOVELER 07/31/2016 Office visit Chelsea Marcos SAND SHOVELER 06/11/2016 Office visit Chelsea Marcos SAND SHOVELER 06/05/2016 Office visit Leonardo Cowan SAND SHOVELER 05/14/2016 Office visit Chelsea Rodríguez SAND SHOVELER 05/05/2016 Office visit Leonardo Cowan SAND SHOVELER 04/24/2016 Office visit Chelsea Walker SAND SHOVELER 04/07/2016 Office visit Chelsea Walker SAND SHOVELER 03/04/2016 Office visit Chelsea Walker SAND SHOVELER 01/14/2016 Office visit Chelsea Walker SAND SHOVELER 01/09/2016 Office visit Leonardo Cowan SAND SHOVELER 01/04/2016 Office visit Leonardo Cowan SAND SHOVELER 11/27/2015 Office visit Chelsea Walker SAND SHOVELER 08/23/2015 Office visit Chelsea Marcos SAND SHOVELER 07/19/2015 Office visit 07/19/2015 Office visit Chelsea Walker SAND SHOVELER 06/21/2015 Office visit Chelsea Marcos SAND SHOVELER 05/03/2015 Nurse visit Adela PORTER 04/12/2015 Office visit Adela Cole [employer] STATISTICAL PROGRAMMER 03/23/2015 Office visit Chelsea Rodríguez SAND SHOVELER 03/08/2015 Office visit Adela Cole [employer] STATISTICAL PROGRAMMER 02/14/2015 Office visit Leonardo Cowan SAND SHOVELER 02/08/2015 Office visit Adela PITTMANP 02/07/2015 Office visit Leonardo Cowan SAND SHOVELER 01/11/2015 Office visit Adela PITTMANP 12/28/2014 Office visit Chelsea Rodríguez SAND SHOVELER 12/14/2014 Nurse visit Adela PITTMANP 11/23/2014 Nurse visit Adela Cole [employer] STATISTICAL PROGRAMMER 10/26/2014 Office visit Adela Cole SAS STATISTICAL PROGRAMMER 10/12/2014 Office visit 10/12/2014 Office visit Chelsea Rodríguez SAND SHOVELER 10/05/2014 Nurse visit Adela Cole [employer] STATISTICAL PROGRAMMER 09/07/2014 Office visit Adela Cole SAS STATISTICAL PROGRAMMER 08/17/2014 Office visit 08/17/2014 Office visit 08/17/2014 Office visit Chelsea Rodríguez SAND SHOVELER 08/14/2014 Office visit Adela Cole [employer] STATISTICAL PROGRAMMER 07/27/2014 Office visit Adela Cole [employer] STATISTICAL PROGRAMMER 2014 Office visit Adela Cole [employer] STATISTICAL PROGRAMMER 2014 Office visit Mica Lr SAND SHOVELER 06/28/2014 Nurse visit Adela Cole SAS STATISTICAL PROGRAMMER 05/31/2014 Office visit Adela PITTMANP 05/03/2014 Voided Adela Cole [employer] STATISTICAL PROGRAMMER 04/26/2014 Office visit Mica Lr SAND SHOVELER 04/05/2014 Office visit Adela PITTMANP 03/10/2014 Office visit Adela PITTMANP 02/28/2014 Office visit Mica Lr SAND SHOVELER 02/24/2014 Office visit Adela PITTMANP 02/06/2014 Office visit Adela PITTMANP 01/10/2014 Nurse visit Suzan Liang MD 01/06/2014 Office visit Mica Lr SAND SHOVELER 12/15/2013 Office visit Adela PITTMANP 11/17/2013 Office visit Chelsea Rodríguez SAND SHOVELER 11/17/2013 Office visit Adela Cole SAS STATISTICAL PROGRAMMER 10/20/2013 Office visit Adela Cole SAS STATISTICAL PROGRAMMER 09/22/2013 Office visit Adela PITTMANP 08/30/2013 Office visit Chelsea Marcos SAND SHOVELER 08/26/2013 Office visit Beti Reyna SAND SHOVELER 07/29/2013 Office visit Adela PITTMANP 07/06/2013 Procedures Elmira Campbell MD 07/01/2013 Office visit Adela Cole SAS STATISTICAL PROGRAMMER 06/06/2013 Office visit Adela Cole SAS STATISTICAL PROGRAMMER 05/31/2013 Office visit Chelsea Marcos SAND SHOVELER 05/11/2013 Office visit Adela Cole SAS STATISTICAL PROGRAMMER 03/22/2013 Office visit Adela Cole SAS STATISTICAL PROGRAMMER 03/10/2013 Office visit Adela Cole SAS STATISTICAL PROGRAMMER 03/04/2013 Office visit Adela AlexMarcus Cole SAS STATISTICAL PROGRAMMER 03/02/2013 Office visit Odette Elam MD 02/22/2013 Office visit Adela Manjit Cole [employer] STATISTICAL PROGRAMMER 01/28/2013 Office visit Chelsea Rodríguez SAND SHOVELER 01/25/2013 Office visit Adela Cole [employer] STATISTICAL PROGRAMMER 12/27/2012 Office visit Adela Cole [employer] STATISTICAL PROGRAMMER 12/07/2012 [facility] Pablo Croft MD 11/24/2012 Office visit Pablo Croft MD 11/02/2012 Office visit Kylah Wright SAND SHOVELER 11/02/2012 Office visit Mica Lr SAND SHOVELER 10/05/2012 [facility] Pablo Croft MD 09/30/2012 Office visit Kylah Wright SAND SHOVELER 09/01/2012 Office visit Kylah Wright SAND SHOVELER 07/21/2012 Office visit Odette Elam MD 06/16/2012 Office visit Pablo Croft MD 05/11/2012 [facility] Pablo Croft MD 04/28/2012 Office visit Pablo Croft MD 04/20/2012 Office visit Odette Elam MD 03/29/2012 Office visit Pablo Croft MD 03/16/2012 [facility] Pablo Croft MD 03/09/2012 [facility] Pablo Croft MD 02/24/2012 [facility] Pablo Croft MD 02/11/2012 Office visit Pablo Croft MD 01/28/2012 Office visit Pablo Croft MD 01/19/2012 Office visit Odette Elam MD 12/03/2011 Office visit Reji Bowens MD 11/12/2011 Office visit Alison Antoine SAND SHOVELER 10/28/2011 Procedures Reji Bowens MD 10/07/2011 Office visit Odette Elam MD 09/04/2011 Surgery Reji Bowens MD 08/15/2011 Surgery Reji Bowens MD 07/22/2011 [facility] Naveen Aguilar MD 07/22/2011 [facility] Reji Bowens MD 07/14/2011 Surgery Reji Bowens MD 06/26/2011 Office visit Odette Elam MD 06/24/2011 Office visit Reji Bowens MD 12/04/2010 Hospital Asha Church MD
--- OUTSIDE RECORDS SUMMARY | 2018-02-14 10:37 | XMS REPORT ---
Author Chelsea Soliz Organization [facility] Address [address] [place], [place] [id number] Care Team Providers Care Primary Care Pediatrician Name Role Phone Chelsea Rodríguez PCP Unavailable Allergies and Adverse Reactions Name Reaction Notes Keflex yeast infection does not want to take due to causes yeast infection Plan of Treatment Planned Activity Comments Planned Date Planned Time Plan/Goal CARDIOVASCULAR STRESS TEST 06/22/2015 12:00 AM ELECTROCARDIOGRAM COMPLETE 06/21/2015 12:00 AM VIRUS INOCULATION TISSUE 03/04/2016 12:00 AM METABOLIC PANEL TOTAL CA 10/12/2014 12:00 AM Medications Active Name Start Date Estimated Completion Date SIG Comments meloxicam 15 mg oral tablet 12/28/2014 take 1 tablet (15 mg) by oral route once daily for 30 days Brintellix 5 mg oral tablet 11/01/2015 take 1 tablet (5 mg) by oral route once daily at the same time each day for 30 days meloxicam 15 mg oral tablet 11/27/2015 TAKE 1 TABLET BY MOUTH ONCE DAILY Flonase Allergy Relief 50 mcg/actuation nasal spray,suspension 11/27/2015 inhale 1 spray (50 mcg) in each nostril by intranasal route once daily hydrocodone-acetaminophen 10-325 mg oral tablet Chantix Continuing Month Box 1 mg oral tablet 02/21/2016 08/07/2016 take 1 tablet (1 mg) with a glass of water by oral route 2 times per day after meals for 12 weeks alprazolam 0.5 mg oral tablet 03/04/2016 06/02/2016 take 1 tablet by oral route every 6 hours for 30 days Belsomra 20 mg oral tablet 03/04/2016 04/03/2016 take 1 tablet (20 mg) by oral route once per night within 30 minutes of bedtime. Take only if at least 7 hrs of bedtime remain before planned time of waking. for 30 days Name Start Date Expiration Date SIG Comments [...] 2 times per day for 30 days diclofenac sodium 75 mg [...] then Take 1 tab x 2 days. Struthers 10-325 mg oral tablet 05/03/2015 06/02/2015 take [...] for 30 days not working for her Discontinued Name Start Date Discontinued Date SIG Comments Percocet 5-325 mg oral tablet 06/26/2011 take 1 tablet by oral route every 4 hours as needed Percocet 5-325 mg oral tablet 07/14/2011 08/15/2011 take 1 tablet by oral route every 4-6 hours as needed meloxicam 15 mg oral tablet 10/07/2011 02/11/2012 take 1 tablet by oral route daily as needed for 30 days Robaxin 500 mg oral tablet 07/21/2012 take [...] day for 30 days changed to zanaflex meloxicam 15 mg oral tablet 05/22/2014 2014 take 1 tablet (15 mg) by oral route once daily Sudafed 12 Hour 120 mg oral tablet [...] oral tablets,dose pack 201502/21/2016 take as directed Problem List Description Status Onset Anxiety Active [...] HC BMI BSA BMI Percentile O2 Sat(%) 03/04/2016 1:56:00 PM 124 mmHg 84 mmHg 85 bpm 18 rpm 96.5 F 157 lbs 68.25 in 23.70 kg/m2 1.85 m2 98 % 01/14/2016 11:31:00 AM 124 mmHg 72 mmHg 86 bpm 18 rpm 97.9 F 169.25 lbs 70 in 24.2846 kg/m 1.9472 m 99 % 01/09/2016 3:38:00 PM 63 bpm 16 rpm 97.6 F 168 lbs 70 in 24.11 kg/m2 1.94 m2 98 % 01/04/2016 2:40:00 PM 120 mmHg 80 mmHg 78 bpm 16 rpm 98.5 F 168 lbs 68 in 25.5441 kg/m 1.9121 m 98 % 11/27/2015 9:01:00 AM 130 mmHg 68 mmHg 85 bpm 18 rpm 97.8 F 166.25 lbs 70 in 23.85 kg/m2 1.93 m2 98 % 08/23/2015 8:24:00 AM 142 mmHg 84 mmHg 96 bpm 18 rpm 97.7 F 173.25 lbs 70 in 24.8585 kg/m 1.9701 m 99 % 07/19/2015 11:30:00 AM 130 mmHg 88 mmHg 102 bpm 98.5 F 173 lbs 70 in 24.82 kg/m2 1.97 m2 99 % 06/21/2015 3:50:00 PM 127 mmHg 87 mmHg 123 bpm 18 rpm 97.9 F 177 lbs 70 in 25.3966 kg/m 1.9913 m 99 % 04/12/2015 3:13:00 PM 128 mmHg 80 mmHg 96 bpm 20 rpm 98.4 F 162 lbs 70 in 23.24 kg/m2 1.91 m2 03/23/2015 8:53:00 AM 128 mmHg 72 mmHg 102 bpm 18 rpm 98.4 F 165.5 lbs 70 in 23.7465 kg/m 1.9255 m 03/08/2015 12:55:00 PM 124 mmHg 68 mmHg 67 bpm 18 rpm 97.6 F 156 lbs 70 in 22.38 kg/m2 1.87 m2 02/14/2015 3:07:00 PM 115 mmHg 70 mmHg 82 bpm 16 rpm 158 lbs 70 in 22.6704 kg/m 1.8814 m 98 % 02/08/2015 1:01:00 PM 116 mmHg 70 mmHg 73 bpm 16 rpm 98 F 158 lbs 70 in 22.67 kg/m2 1.88 m2 02/07/2015 5:05:00 PM 128 mmHg 76 mmHg 76 bpm 18 rpm 97.7 F 162.125 lbs 70 in 23.2623 kg/m 1.9058 m 100 % 01/11/2015 3:11:00 PM 124 mmHg 62 mmHg 70 bpm 18 rpm 97.4 F 163 lbs 70 in 23.39 kg/m2 1.91 m2 12/28/2014 9:30:00 AM 128 mmHg 72 mmHg 84 bpm 18 rpm 99.7 F 167 lbs 70 in 23.9618 kg/m 1.9342 m 100 % 12/14/2014 9:33:00 AM 112 mmHg 64 mmHg 70 bpm 18 rpm 96.6 F 163 lbs 70 in 23.39 kg/m2 1.91 m2 11/23/2014 10:00:00 AM 116 mmHg 80 mmHg 73 bpm 20 rpm 96 F 163 lbs 70 in 23.3878 kg/m 1.9109 m 10/26/2014 3:10:00 PM 122 mmHg 90 mmHg [...] rpm 97.3 F 130 lbs 70 in 18.65 kg/m2 1.71 m2 02/11/2012 3:50:00 PM 104 mmHg 82 mmHg 84 bpm 16 rpm 95.9 F 132 lbs 70 in 18.9398 kg/m 1.7196 m 01/28/2012 8:59:00 AM 108 mmHg 72 mmHg 76 bpm 14 rpm 95.2 F 134.25 lbs 70 in 19.26 kg/m2 1.73 m2 01/19/2012 3:22:00 PM 122 mmHg 80 mmHg 89 bpm 16 rpm 98.5 F 137 lbs 98 % 12/03/2011 3:44:00 PM 116 mmHg 72 mmHg 76 bpm 98.6 F 135 lbs 70 in 19.37 kg/m2 1.74 m2 11/12/2011 10:47:00 AM 120 mmHg 70 mmHg 97 bpm 18 rpm 98.3 F 134.375 lbs 70 in 19.2806 kg/m 1.735 m 100 % 10/28/2011 9:24:00 AM 109 mmHg 69 mmHg 67 bpm 98.5 F 140 lbs 70 in 20.09 kg/m2 1.77 m2 10/07/2011 3:50:00 PM 122 mmHg 84 mmHg 84 bpm 16 rpm 98.4 F 143.5 lbs 100 % 09/04/2011 4:58:00 PM 120 mmHg 80 mmHg 85 bpm 98.3 F 145 lbs 70 in 20.81 kg/m2 1.80 m2 08/15/2011 3:21:00 PM 120 mmHg 79 mmHg 76 bpm 97.4 F 148.5 lbs 70 in 21.3073 kg/m 1.8239 m 07/14/2011 11:11:00 AM 128 mmHg 82 mmHg 70 bpm 98.3 F 156 lbs 70 in 22.38 kg/m2 1.87 m2 06/26/2011 9:34:00 AM 114 mmHg 82 mmHg 83 bpm 16 rpm 97.7 F 158.5 lbs 70 in 22.7421 kg/m 1.8844 m 98 % 06/24/2011 4:01:00 PM 124 mmHg 77 mmHg 77 bpm 97.6 F 162 lbs 68.5 in 24.27 kg/m2 1.88 m2 Social History Name Description Comments Tobacco Current every day smoker Alcohol Use - Rare Children at home age 16 Lives with spouse in a house bachelors degree College graduate Denies illicit substance 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[employer] 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 History of Procedures Date Ordered Description Order Status 03/23/2015 12:00 AM FLU VACC 4 ROB 3 YRS PLUS IM Reviewed 03/23/2015 12:00 AM THER/PROPH/DIAG INJ SC/IM Reviewed 04/12/2015 12:00 AM INJECT SPINE LUMBAR/SACRAL Returned 05/03/2015 12:00 AM OFFICE/OUTPATIENT VISIT EST Reviewed 06/21/2015 12:00 AM COMPLETE CBC W/AUTO DIFF WBC Returned 06/21/2015 12:00 AM COMPREHEN METABOLIC PANEL Returned 06/21/2015 12:00 AM FIBRIN DEGRADATION QUANT Returned 06/21/2015 12:00 AM ASSAY OF TROPONIN QUANT Returned 07/19/2015 12:00 AM MAMMOGRAM BOTH BREASTS Returned 11/27/2015 12:00 AM Decadron, Per 1 Mg [facility]# [address]-33 Reviewed 11/27/2015 12:00 AM Depo-Medrol 40mg Reviewed 06/24/2011 12:00 AM ASSAY THYROID STIM HORMONE Returned 06/24/2011 12:00 AM ASSAY OF GONADOTROPIN (FSH) Returned 06/24/2011 12:00 AM CYTOPATH TBS C/V MANUAL Returned 06/24/2011 12:00 AM SPECIMEN HANDLING OFFICE-LAB Reviewed 06/24/2011 12:00 AM MAMMOGRAM SCREENING Returned 06/24/2011 12:00 AM BIOPSY OF UTERUS LINING Reviewed 01/04/2016 12:00 AM X-RAY EXAM OF HAND Returned 01/04/2016 12:00 AM CUL BACT XCPT URINE BLOOD/STOOL AEROBIC ISOL Returned 01/09/2016 12:00 AM HEP B SURFACE ANTIBODY Returned 01/09/2016 12:00 AM HEPATITIS B SURFACE AG EIA Returned 01/09/2016 12:00 AM HERPES SIMPLEX 1 AG IF Returned 07/14/2011 12:00 AM COMPLETE CBC W/AUTO DIFF WBC Returned 07/14/2011 12:00 AM COMPREHEN METABOLIC PANEL Returned 07/14/2011 12:00 AM Type and screen Returned 03/04/2016 12:00 AM FLU VACC 4 ROB 3 YRS PLUS IM Reviewed 03/04/2016 12:00 AM TISSUE EXAM FOR FUNGI Returned 03/04/2016 12:00 AM SMEAR WET MOUNT SALINE/INK Returned 03/04/2016 12:00 AM SMEAR WET MOUNT SALINE/INK Returned 10/29/2011 12:00 AM CYSTOMETROGRAM W/MEDICAL COST CONSULTANT&UP Reviewed 10/29/2011 12:00 AM ELECTRO-UROFLOWMETRY FIRST Reviewed 10/29/2011 12:00 AM INTRAABDOMINAL PRESSURE TEST Reviewed 11/12/2011 12:00 AM X-RAY URETHRA/BLADDER Reviewed 11/12/2011 12:00 AM X-RAY EXAM SI JOINTS 3/> VWS Reviewed 01/28/2012 12:00 AM MRI LUMBAR SPINE W/O DYE Returned 04/20/2012 12:00 AM THER/PROPH/DIAG INJ SC/IM Reviewed 04/20/2012 12:00 AM Depo-Medrol, Per 120 Mg [facility]#6070-4622-69 Reviewed 07/21/2012 12:00 AM THER/PROPH/DIAG INJ SC/IM Reviewed 07/21/2012 12:00 AM Depo-Medrol, Per 120 Mg [facility]#9613-4940-08 Reviewed 09/01/2012 12:00 AM Drug Screen (Non-Medicare) Reviewed 09/01/2012 12:00 AM DRAIN/INJ JOINT/BURSA W/O US Reviewed 09/01/2012 12:00 AM Kenalog, Per 10 Mg [facility]#6715-5509-36 Reviewed 11/02/2012 12:00 AM Norflex, Up to 60 Mg [facility]#82687-716-43 Reviewed 11/02/2012 12:00 AM INJ TRIGGER POINT 1/2 MUSCL Reviewed 11/02/2012 12:00 AM Bupivicaine, 30 ml [facility]#3357-4187-85 Reviewed 11/02/2012 12:00 AM THER/PROPH/DIAG INJ SC/IM Reviewed 11/02/2012 12:00 AM Norflex, Up to 60 Mg [facility]#92139-997-04 Reviewed 12/27/2012 12:00 AM COMPLETE CBC W/AUTO DIFF WBC Returned 12/27/2012 12:00 AM COMPREHEN METABOLIC PANEL Returned 12/27/2012 12:00 AM ASSAY THYROID STIM HORMONE Returned 12/27/2012 12:00 AM VITAMIN B-12 Returned 12/27/2012 12:00 AM ASSAY OF FERRITIN Returned 12/27/2012 12:00 AM ANTINUCLEAR ANTIBODIES Reviewed 12/27/2012 12:00 AM DNA ANTIBODY KALSKAG Reviewed 12/27/2012 12:00 AM NUCLEAR ANTIGEN ANTIBODY Reviewed 12/27/2012 12:00 AM RHEUMATOID FACTOR QUANT Reviewed 12/27/2012 12:00 AM COMPLEMENT ANTIGEN Reviewed 12/27/2012 12:00 AM THROMBOPLASTIN TIME PARTIAL Returned 12/27/2012 12:00 AM RBC SED RATE AUTOMATED Returned 12/27/2012 12:00 AM ASSAY OF MAGNESIUM Returned 01/25/2013 12:00 AM COMPREHEN METABOLIC PANEL Returned 03/02/2013 12:00 AM IMMUNIZATION ADMIN Reviewed 03/02/2013 12:00 AM FLU VACCINE 3 YRS & > IM Reviewed 03/22/2013 12:00 AM ASSAY OF VITAMIN B-1 Reviewed 03/22/2013 12:00 AM Hip Complete Min 2Views - MOB Reviewed 03/22/2013 12:00 AM Sacroiliac Joints Min 3Views - MOB Reviewed 05/11/2013 12:00 AM MRI PELVIS W/O DYE Returned 05/31/2013 12:00 AM Decadron, Per 1 Mg [facility]# [address]-49 Reviewed 05/31/2013 12:00 AM Depo-Medrol, Per 80 Mg [facility]#2676-1334-41 Reviewed 05/31/2013 12:00 AM THER/PROPH/DIAG INJ SC/IM Reviewed 06/06/2013 12:00 AM MUSCLE TEST 2 LIMBS Reviewed 06/06/2013 12:00 AM Nerve conduction studies with F-wave Reviewed 08/26/2013 12:00 AM MAMMOGRAM SCREENING Returned 08/26/2013 12:00 AM MAMMOGRAM SCREENING Reviewed 08/30/2013 12:00 AM THER/PROPH/DIAG INJ SC/IM Reviewed 08/30/2013 12:00 AM Decadron, Per 1 Mg [facility]# [address]-21 Reviewed 08/30/2013 12:00 AM Depo-Medrol, Per 80 Mg [facility]#6111-6852-63 Reviewed 11/17/2013 12:00 AM THER/PROPH/DIAG INJ SC/IM Reviewed 11/17/2013 12:00 AM Decadron, Per 1 Mg [facility]# [address]-65 Reviewed 11/17/2013 12:00 AM Depo-Medrol 40mg Reviewed 01/06/2014 12:00 AM THER/PROPH/DIAG INJ SC/IM Reviewed 01/06/2014 12:00 AM Decadron, Per 1 Mg [facility]# [address]-52 Reviewed 01/06/2014 12:00 AM Rocephin 1 gram [facility]#5489-4859-06 Reviewed 01/10/2014 12:00 AM OFFICE/OUTPATIENT VISIT EST Reviewed 02/24/2014 12:00 AM MRI LUMBAR SPINE W/O DYE Returned 02/28/2014 12:00 AM IMMUNIZATION ADMIN EACH ADD Reviewed 02/28/2014 12:00 AM PNEUMOCOCCAL POLYSAC VACCINE 23-V 2 YRS/>SUBQ/IM Reviewed 02/28/2014 12:00 AM FLU VAC NO PRSV 4 ROB 3 YRS+ Reviewed 02/28/2014 12:00 AM CHEST X-RAY 2VW FRONTAL&LATL Returned 02/28/2014 12:00 AM LEGIONELLA ANTIBODY Returned 02/28/2014 12:00 AM MYCOPLASMA ANTIBODY Returned 02/28/2014 12:00 AM BORDETELLA ANTIBODY Returned 02/28/2014 12:00 AM COMPLETE CBC W/AUTO DIFF WBC Returned 02/28/2014 12:00 AM CULTURE OTHR SPECIMN AEROBIC Returned 2014 12:00 AM COMPREHEN METABOLIC PANEL Returned 2014 12:00 AM LIPID PANEL Returned 2014 12:00 AM COMPLETE CBC W/AUTO DIFF WBC Returned 08/17/2014 12:00 AM MAMMOGRAM SCREENING Returned 08/17/2014 12:00 AM MAMMOGRAM BOTH BREASTS Reviewed 10/12/2014 12:00 AM THER/PROPH/DIAG INJ SC/IM Reviewed 10/12/2014 12:00 AM Decadron, Per 1 Mg [facility]# [address]-80 Reviewed 10/12/2014 12:00 AM Depo-Medrol 40mg Reviewed 11/23/2014 12:00 AM OFFICE/OUTPATIENT VISIT EST Reviewed 12/14/2014 12:00 AM OFFICE/OUTPATIENT VISIT EST Reviewed Results Summary Data and Description Results 06/23/2011 2:25 PM FSH 7.70 mIU/mLTSH 0.890 uIU/mL 06/26/2011 9:37 AM Colonoscopy-Women and Men over 50 Declined Mammogram -Women over 40 Ordered Pap Smear Collected 07/14/2011 12:10 PM WBC 11.2 RBC 4.78 HGB 14.60 g/dLHCT 44.70 %MCV 94.0 fLMCH 30.50 pgMCHC 32.70 g/dLRDW CV 13.10 %MPV 10.0 fLPLT 284 %NEUT 71.90 %%LYMP 18.10 %%MONO 8.80 %%EOS 0.90 %%BASO 0.30 %#NEUT 8.06 #LYMP 2.03 #MONO 0.99 #EOS 0.10 #BASO 0.03 GLUCOSE 99.0 mg/dLSODIUM 139.0 mmol/LPOTASSIUM 4.40 mmol/ LCHLORIDE 103.0 mmol/LCO2 25.0 mmol/LBUN 13.0 mg/dLCREATININE 0.70 mg/dLSGOT/ AST 15.0 IU/LSGPT/ALT 17.0 IU/LALK PHOS 73.0 IU/LTOTAL PROTEIN 7.30 g/dLALBUMIN 4.60 g/dLTOTAL BILI 0.70 mg/dLCALCIUM 9.10 mg/dLeGFR >60 mL/min/1.73 m2 07/22/2011 8:00 AM TEST UR NEGATIVE 07/22/2011 3:30 PM WBC 13.4 RBC 3.67 HGB 11.30 g/dLHCT 33.80 %MCV 92.0 fLMCH 30.80 pgMCHC 33.40 g/dLRDW CV 12.80 %MPV 9.20 fLPLT 203 %NEUT 76.70 %%LYMP 15.20 %%MONO 7.60 %%EOS 0.30 %%BASO 0.20 %#NEUT 10.29 #LYMP 2.04 #MONO 1.02 # EOS 0.04 #BASO 0.03 GLUCOSE 129.0 mg/dLSODIUM 138.0 mmol/LPOTASSIUM 3.40 mmol/ LCHLORIDE 108.0 mmol/LCO2 24.0 mmol/LBUN 6.0 mg/dLCREATININE 0.60 mg/dLSGOT/AST 14.0 IU/LSGPT/ALT 12.0 IU/LALK PHOS 52.0 IU/LTOTAL PROTEIN 5.10 g/dLALBUMIN 3.40 g/dLTOTAL BILI 0.50 mg/dLCALCIUM 8.50 mg/dLeGFR >60 mL/min/1.73 m2 07/23/2011 6:40 AM WBC 7.6 RBC 3.58 HGB 10.90 g/dLHCT 33.60 %MCV 94.0 fLMCH 30.40 [facility] 32[facility] g/dLRDW CV 13.10 %MPV 9.80 fLPLT 199 12/30/2012 11:35 AM WBC 6.7 RBC 4.98 HGB 15.20 g/dLHCT 45.50 %MCV 91.0 fLH 30.50 [facility] 33.40 g/dLRDW CV 12.70 %MPV 9.60 fLPLT 322 %NEUT 63.0 %%LYMP 27.50 %%MONO 7.90 %%EOS 1.30 %%BASO 0.30 %#NEUT 4.23 #LYMP 1.85 #MONO 0.53 #EOS 0.09 # BASO 0.02 SEDRATE 10.0 mm/hrGLUCOSE 99.0 mg/dLSODIUM 142.0 mmol/LPOTASSIUM 4.80 mmol/LCHLORIDE 104.0 mmol/LCO2 29.0 mmol/LBUN 17.0 mg/dLCREATININE 0.80 mg/ dLSGOT/AST 29.0 IU/LSGPT/ALT 33.0 IU/LALK PHOS 76.0 IU/LTOTAL PROTEIN 7.60 g/ dLALBUMIN 4.70 g/dLTOTAL BILI 0.80 mg/dLCALCIUM 10.90 mg/dLeGFR 60 MAGNESIUM 2.30 mg/dLTSH 0.710 uIU/mLFERRITIN 102.0 ng/mLVITAMIN B12 483.0 pg/mL 01/25/2013 4:18 PM GLUCOSE 118.0 mg/dLSODIUM 140.0 mmol/LPOTASSIUM 3.40 mmol/ LCHLORIDE 104.0 mmol/LCO2 26.0 mmol/LBUN 12.0 mg/dLCREATININE 0.80 mg/dLSGOT/ AST 34.0 IU/LSGPT/ALT 37.0 IU/LALK PHOS 84.0 IU/LTOTAL PROTEIN 7.0 g/dLALBUMIN 4.50 g/dLTOTAL BILI 0.80 mg/dLCALCIUM 9.80 mg/dLeGFR 60 02/28/2014 11:05 AM WBC 7.5 RBC 4.22 HGB 12.90 g/dLHCT 38.50 %MCV 91.0 fLMCH 30.60 pgMCHC 33.50 g/dLRDW CV 12.30 %MPV 8.80 fLPLT 280 %NEUT 49.50 %%LYMP 38.10 %%MONO 9.20 %%EOS 2.80 %%BASO 0.40 %#NEUT 3.71 #LYMP 2.85 #MONO 0.69 #EOS 0.21 #BASO 0.03 WBC 7.5 RBC 4.22 HGB 12.90 g/dLHCT 38.50 %MCV 91.0 fLMCH 30.60 pgMCHC 33.50 g/dLRDW CV 12.30 %MPV 8.80 fLPLT 280 %NEUT 49.50 %%LYMP 38.10 %% MONO 9.20 %%EOS 2.80 %%BASO 0.40 %#NEUT 3.71 #LYMP 2.85 #MONO 0.69 #EOS 0.21 # BASO 0.03 EOS 1.0 % 02/28/2014 4:08 PM M pneumoniae IgG Abs 389.0 U/mLM pneumoniae IgM Abs <770 U/ mLLegionella pneumophilaAbs. <0.91 08/17/2014 11:05 AM WBC 5.8 RBC 4.31 HGB 13.0 g/dLHCT 39.10 %MCV 91.0 fLMCH 30.20 pgMCHC 33.20 g/dLRDW CV 12.70 %MPV 9.20 fLPLT 300 %NEUT 31.40 %%LYMP 53.80 %%MONO 11.20 %%EOS 2.90 %%BASO 0.70 %#NEUT 1.81 #LYMP 3.11 #MONO 0.65 # EOS 0.17 #BASO 0.04 TRIGLYCERIDES 83.0 mg/dLCHOLESTEROL 227.0 mg/dLHDL 61.0 mg/ dLLDL (CALC) 149.0 mg/dLGLUCOSE 97.0 mg/dLSODIUM 140.0 mmol/LPOTASSIUM 3.90 mmol /LCHLORIDE 106.0 mmol/LCO2 24.0 mmol/LBUN 17.0 mg/dLCREATININE 0.80 mg/dLSGOT/ AST 38.0 IU/LSGPT/ALT 28.0 IU/LALK PHOS 95.0 IU/LTOTAL PROTEIN 7.10 g/dLALBUMIN 4.40 g/dLTOTAL BILI 1.20 mg/dLCALCIUM 10.10 mg/dLeGFR >60 mL/min/1.73 m2 06/21/2015 4:50 PM WBC 7.5 RBC 4.43 HGB 13.50 g/dLHCT 41.20 %MCV 93.0 fLMCH 30.50 pgMCHC 32.80 g/dLRDW CV 12.60 %MPV 8.70 fLPLT 308 %NEUT 54.20 %%LYMP 35.0 %%MONO 8.20 %%EOS 2.30 %%BASO 0.30 %#NEUT 4.05 #LYMP 2.61 #MONO 0.61 #EOS 0.17 # BASO 0.02 TROPONIN-I AD <0.04 ng/mLGLUCOSE 91.0 mg/dLSODIUM 140.0 mmol/ LPOTASSIUM 3.60 mmol/LCHLORIDE 105.0 mmol/LCO2 23.0 mmol/LBUN 10.0 mg/ dLCREATININE 0.80 mg/dLSGOT/AST 25.0 IU/LSGPT/ALT 19.0 IU/LALK PHOS 85.0 IU/ LTOTAL PROTEIN 7.0 g/dLALBUMIN 4.50 g/dLTOTAL BILI 0.40 mg/dLCALCIUM 9.50 mg/ dLeGFR >60 mL/min/1.73mD-DIMER QUANT 0.33 01/09/2016 4:20 PM HBsAg Screen Negative Hep B Surface Ab, Qual Reactive Index ValueHSV 1 IgG, Type Spec 25.40 IndexHSV 2 IgG, Type Spec <0.91 Index 03/04/2016 2:50 PM WET PREP NO TRICH SEEN CLUE CELLS NONE SEEN History Of Immunizations Name Date Admin Mfg Name Mfg Code Trade Name Lot# Route Inj Vis Given Vis Pub CVX Influenza 03/02/2013 sanofi pasteur PMC Fluzone [id number] Intramuscular Left Deltoid 03/02/2013 12/17/2012 141 X 02/28/2014 [employer] MSD Pneumovax 23 [id number] Intramuscular Left Deltoid 02/28/2014 02/27/2009 33 Influenza 03/23/2015 sanofi pasteur PMC Fluzone Quadrivalent [id number] Intramuscular Right Deltoid 03/23/2015 12/29/2014 140 Influenza 03/04/2016 sanofi pasteur PMC Fluzone Quadrivalent UI 684 [id number] Intramuscular Left Deltoid 03/04/2016 12/29/2014 141 History of Past Illness Name Date of [...] Jun 24 2011 5:18PM Low Back Pain Jun 26 2011 9:38AM Osteoarthrosis Jun 26 2011 9:38AM Abdominal Pain Jun 26 2011 9:38AM Diverticulosis Of Colon Jun 26 [...] 5 2011 9:12AM SI joint pain Sep 5 2011 9:12AM Radiculopathy, lumbosacral Sep 19 2011 3:58PM SI joint pain Feb 11 [...] SI joint pain Sep 01 2012 3:06PM jail medication use Sep 01 2012 4:05PM Wrist [...] 3 2012 3:35PM SI joint pain Jan 3 2012 3:35PM Neuralgia Jan 3 2013 3:35PM Anxiety Disorder Jan 6 2012 8:51AM [...] Hip Jun 06 2013 9:51AM Radiculopathy, lumbosacral Jul 01 2013 9:09AM SI joint pain Jul 01 [...] 2:00PM Vaginal discharge Mar 04 2016 2:00PM Payers Insurance Name Company Name Plan Name Plan Number Policy Number Policy Group Number Start Date BCBS [facility] [id number] N/A Res Care [employer] [id number] N/A [facility] [employer] [id number] N/A [employer] [facility] [id number] Saturday, 2011 BCBS [employer] [facility] [id number] N/A [employer] [facility] [id number] Thursday, 2013 UMR UMR [id number] N/A [employer] [id number] N/A History of Encounters Visit Date Visit Type Provider 03/04/2016 Office visit Chelsea Rodríguez APRN 01/14/2016 Office visit Chelsea Rodríguez APRN 01/09/2016 Office visit Leonardo Cowan APRN 01/04/2016 Office visit Leonardo Cowan APRN 11/27/2015 Office visit Chelsea Rodríguez APRN 08/23/2015 Office visit Chelsea Rodríguez SIGN LANGUAGE INTERPRETER 07/19/2015 Office visit 07/19/2015 Office visit Chelsea Rodríguez SIGN LANGUAGE INTERPRETER 06/21/2015 Office visit Chelsea Rodríguez SIGN LANGUAGE INTERPRETER 05/03/2015 Nurse visit Adela Cole DANCE COACH 04/12/2015 Office visit Adela Cole DANCE COACH 03/23/2015 Office visit Chelsea Rodríguez SIGN LANGUAGE INTERPRETER 03/08/2015 Office visit Adela Cole DANCE COACH 02/14/2015 Office visit Leonardo Cowan SIGN LANGUAGE INTERPRETER 02/08/2015 Office visit Adela Cole DANCE COACH 02/07/2015 Office visit Leonardo Cowan SIGN LANGUAGE INTERPRETER 01/11/2015 Office visit Adela Cole DANCE COACH 12/28/2014 Office visit Chelsea Rodríguez SIGN LANGUAGE INTERPRETER 12/14/2014 Nurse visit Adela Cole DANCE COACH 11/23/2014 Nurse visit Adela PITTMANP 10/26/2014 Office visit Adela PITTMANP 10/12/2014 Office visit 10/12/2014 Office visit Chelsea Rodríguez SIGN LANGUAGE INTERPRETER 10/05/2014 Nurse visit Adela PITTMANP 09/07/2014 Office visit Adela PITTMANP 08/17/2014 Office visit 08/17/2014 Office visit 08/17/2014 Office visit Chelsea Rodríguez SIGN LANGUAGE INTERPRETER 08/14/2014 Office visit Adela PITTMANP 07/27/2014 Office visit Adela PITTMANP 2014 Office visit Adela PITTMANP 2014 Office visit Mica Lr SIGN LANGUAGE INTERPRETER 06/28/2014 Nurse visit Adela PITTMANP 05/31/2014 Office visit Adela PITTMANP 05/03/2014 Voided Adela PITTMANP 04/26/2014 Office visit Mica Lr SIGN LANGUAGE INTERPRETER 04/05/2014 Office visit Adela PITTMANP 03/10/2014 Office visit Adela PITTMANP 02/28/2014 Office visit Mica Lr SIGN LANGUAGE INTERPRETER 02/24/2014 Office visit Adela PITTMANP 02/06/2014 Office visit Adela PITTMANP 01/10/2014 Nurse visit Suzan Liang MD 01/06/2014 Office visit Mica Lr SIGN LANGUAGE INTERPRETER 12/15/2013 Office visit Adela PITTMANP 11/17/2013 Office visit Chelsea Rodríguez SIGN LANGUAGE INTERPRETER 11/17/2013 Office visit Adela AlexMarcus Cole DANCE COACH 10/20/2013 Office visit Adela Cole DANCE COACH 09/22/2013 Office visit Adela Manjit Douglas DANCE COACH 08/30/2013 Office visit Chelsea Rodríguez SIGN LANGUAGE INTERPRETER 08/26/2013 Office visit Beti MMarcus Reyna SIGN LANGUAGE INTERPRETER 07/29/2013 Office visit Adela Cole DANCE COACH 07/06/2013 [facility] Campbell MD 07/01/2013 Office visit Adela M. Douglas DANCE COACH 06/06/2013 Office visit Adelacatherine Cole DANCE COACH 05/31/2013 Office visit Chelsea Rodríguez SIGN LANGUAGE INTERPRETER 05/11/2013 Office visit Adela Manjit Douglas DANCE COACH 03/22/2013 Office visit Adela AlexMarcus Cole DANCE COACH 03/10/2013 Office visit Adela M. Douglas DANCE COACH 03/04/2013 Office visit Adela Manjit Douglas DANCE COACH 03/02/2013 Office visit Odette Elam MD 02/22/2013 Office visit Adela Cole DANCE COACH 01/28/2013 Office visit Chelsea Rodríguez SIGN LANGUAGE INTERPRETER 01/25/2013 Office visit Adela AlexMarcus Cole DANCE COACH 12/27/2012 Office visit Adela Cole DANCE COACH 12/07/2012 Hospital Pablo Croft MD 11/24/2012 Office visit Pablo Croft MD 11/02/2012 Office visit Kylah Wright SIGN LANGUAGE INTERPRETER 11/02/2012 Office visit Mica Lr SIGN LANGUAGE INTERPRETER 10/05/2012 [facility] Pablo Croft MD 09/30/2012 Office visit Kylah Wright SIGN LANGUAGE INTERPRETER 09/01/2012 Office visit Kylah Wright SIGN LANGUAGE INTERPRETER 07/21/2012 Office visit Odette Elam MD 06/16/2012 Office visit Pablo Croft MD 05/11/2012 [facility] Pablo Croft MD 04/28/2012 Office visit Pablo Croft MD 04/20/2012 Office visit Odette Elam MD 03/29/2012 Office visit Pablo Croft MD 03/16/2012 [facility] Pablo Croft MD 03/09/2012 [facility] Pablo Croft MD 02/24/2012 Hospital Pablo Croft MD 02/11/2012 Office visit Pablo Croft MD 01/28/2012 Office visit Pablo Croft MD 01/19/2012 Office visit Odette Elam MD 12/03/2011 Office visit Reji Bowens MD 11/12/2011 Office visit Alison Antoine APRN 10/28/2011 Procedures Reji Bowens MD 10/07/2011 Office visit Odette Elam MD 09/04/2011 Surgery Reji Bowens MD 08/15/2011 Surgery Reji Bowens MD 07/22/2011 [facility] Naveen Aguilar MD 07/22/2011 [facility] Reji Bowens MD 07/14/2011 Surgery Reji Bowens MD 06/26/2011 Office visit Odette Elam MD 06/24/2011 Office visit Reji Bowens MD 12/04/2010 [facility] Asha Church MD
--- OUTSIDE RECORDS SUMMARY | 2018-02-14 10:40 | XMS REPORT ---
Author Chelsea Soliz Organization [facility] Address [address] [place], [place] [id number] Care Team Providers Care Procedure Writer Name Role Phone Chelsea Rodríguez PCP Unavailable Allergies and Adverse Reactions Name Reaction Notes Keflex yeast infection does not want to take due to causes yeast infection Plan of Treatment Planned Activity Comments Planned Date Planned Time Plan/Goal CARDIOVASCULAR STRESS TEST 06/22/2015 12:00 AM ELECTROCARDIOGRAM COMPLETE 06/21/2015 12:00 AM METABOLIC PANEL TOTAL CA 10/12/2014 [...] 30 days Belsomra 20 mg oral tablet 03/25/2016 04/24/2016 take 1 tablet (20 mg) by oral [...] then Take 1 tab x 2 days. 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 History of [...] 11/27/2015 12:00 AM Decadron, Per 1 Mg [facility]# [address]-53 Reviewed 11/27/2015 12:00 AM Depo-Medrol 40mg Reviewed [...] WET [place] SALINE/INK Returned 03/04/2016 12:00 AM VIRUS INOCULATION TISSUE Returned 10/29/2011 12:00 AM CYSTOMETROGRAM W/COMMUNICATION TECHNICIAN&UP Reviewed 10/29/2011 12:00 AM ELECTRO-UROFLOWMETRY FIRST Reviewed 10/29/2011 12:00 AM INTRAABDOMINAL PRESSURE TEST Reviewed 11/12/2011 12:00 AM X-RAY URETHRA/BLADDER Reviewed 11/12/2011 12:00 AM X-RAY EXAM SI JOINTS 3/> VWS Reviewed 01/28/2012 12:00 AM MRI LUMBAR SPINE W/O DYE Returned 04/20/2012 12:00 AM THER/PROPH/DIAG INJ SC/IM Reviewed 04/20/2012 12:00 AM Depo-Medrol, Per 120 Mg [facility]#5270-8310-42 Reviewed 07/21/2012 12:00 AM THER/PROPH/DIAG INJ SC/IM Reviewed 07/21/2012 12:00 AM Depo-Medrol, Per 120 Mg [facility]#1724-4868-75 Reviewed 09/01/2012 12:00 AM Drug Screen (Non-Medicare) Reviewed 09/01/2012 12:00 AM DRAIN/INJ JOINT/BURSA W/O US Reviewed 09/01/2012 12:00 AM Kenalog, Per 10 Mg [facility]#0434-9674-84 Reviewed 11/02/2012 12:00 AM Norflex, Up to 60 Mg [facility]#04461-857-21 Reviewed 11/02/2012 12:00 AM INJ TRIGGER POINT 1/2 MUSCL Reviewed 11/02/2012 12:00 AM Bupivicaine, 30 ml [facility]#5139-5001-69 Reviewed 11/02/2012 12:00 AM THER/PROPH/DIAG INJ SC/IM Reviewed 11/02/2012 12:00 AM Norflex, Up to 60 Mg [facility]#14424-430-50 Reviewed 12/27/2012 12:00 AM COMPLETE CBC W/AUTO DIFF WBC Returned 12/27/2012 12:00 AM COMPREHEN METABOLIC PANEL Returned 12/27/2012 12:00 AM ASSAY THYROID STIM HORMONE Returned 12/27/2012 12:00 AM VITAMIN B-12 Returned 12/27/2012 12:00 AM ASSAY OF FERRITIN Returned 12/27/2012 12:00 AM ANTINUCLEAR ANTIBODIES Reviewed 12/27/2012 12:00 AM DNA ANTIBODY GRAYLING Reviewed 12/27/2012 12:00 AM NUCLEAR ANTIGEN ANTIBODY [...] 05/31/2013 12:00 AM Decadron, Per 1 Mg [facility]# [address]-15 Reviewed 05/31/2013 12:00 AM Depo-Medrol, Per 80 Mg [facility]#8297-8552-91 Reviewed 05/31/2013 12:00 AM THER/PROPH/DIAG INJ SC/IM Reviewed 06/06/2013 12:00 AM MUSCLE TEST 2 LIMBS Reviewed 06/06/2013 12:00 AM Nerve conduction studies with F-wave Reviewed 08/26/2013 12:00 AM MAMMOGRAM SCREENING Returned 08/26/2013 12:00 AM MAMMOGRAM SCREENING Reviewed 08/30/2013 12:00 AM THER/PROPH/DIAG INJ SC/IM Reviewed 08/30/2013 12:00 AM Decadron, Per 1 Mg [facility]# [address]-01 Reviewed 08/30/2013 12:00 AM Depo-Medrol, Per 80 Mg [facility]#1874-2494-78 Reviewed 11/17/2013 12:00 AM THER/PROPH/DIAG INJ SC/IM Reviewed 11/17/2013 12:00 AM Decadron, Per 1 Mg [facility]# [address]-54 Reviewed 11/17/2013 12:00 AM Depo-Medrol 40mg Reviewed 01/06/2014 12:00 AM THER/PROPH/DIAG INJ SC/IM Reviewed 01/06/2014 12:00 AM Decadron, Per 1 Mg [facility]# [address]-06 Reviewed 01/06/2014 12:00 AM Rocephin 1 gram [facility]#4610-3000-36 Reviewed 01/10/2014 12:00 AM OFFICE/OUTPATIENT VISIT EST [...] 10/12/2014 12:00 AM Decadron, Per 1 Mg [facility]# [address]-76 Reviewed 10/12/2014 12:00 AM Depo-Medrol 40mg Reviewed [...] 10.90 g/dLHCT 33.60 %MCV 94.0 fLMCH 30.40 pgHC 32.40 g/dLRDW CV 13.10 %MPV 9.80 fLPLT 199 12/30/2012 11:35 AM WBC 6.7 RBC 4.98 HGB 15.20 g/dLHCT 45.50 %MCV 91.0 fLMCH 30.50 pgHC 33.40 g/dLRDW CV 12.70 %MPV 9.60 fLPLT [...] CVX Influenza 03/02/2013 sanofi pasteur PMC Fluzone [id number] Intramuscular Left Deltoid 03/02/2013 12/17/2012 141 X 02/28/2014 [employer] MSD Pneumovax 23 [id number] Intramuscular Left Deltoid 02/28/2014 02/27/2009 33 Influenza 03/23/2015 sanofi pasteur PMC Fluzone Quadrivalent [id number] Intramuscular Right Deltoid 03/23/2015 12/29/2014 140 Influenza [...] pain Feb 11 2012 3:58PM Radiculopathy, lumbosacral Mar 29 2012 3:40PM [...] SI joint pain Sep 01 2012 3:06PM [facility] medication use Sep 01 2012 4:05PM Wrist [...] Policy Group Number Start Date [employer] [facility] [id number] N/A [facility] [employer] [id number] N/A [facility] [employer] [id number] N/A [employer] [facility] [id number] Saturday, 2011 [employer] [facility] [id number] N/A [employer] [facility] [id number] Thursday, 2013 UMR UMR [id number] N/A [employer] [id number] N/A History of Encounters Visit Date Visit Type Provider 03/04/2016 Office visit Chelsea Rodríguez APRN 01/14/2016 Office visit Chelsea Rodríguez APRN 01/09/2016 Office visit Leonardo Cowan APRN 01/04/2016 Office visit Leonardo Cowan APRN 11/27/2015 Office visit Chelsea Rodríguez APRN 08/23/2015 Office visit Chelsea Rodrgíuez SCRIPT MANAGER 07/19/2015 Office visit 07/19/2015 Office visit Chelsea Rodríguez SCRIPT MANAGER 06/21/2015 Office visit Chelsea Rodríguez SCRIPT MANAGER 05/03/2015 Nurse visit Adela Cole SOLID PROPELLANT PROCESSOR 04/12/2015 Office visit Adela Cole SOLID PROPELLANT PROCESSOR 03/23/2015 Office visit Chelsea Rodríguez SCRIPT MANAGER 03/08/2015 Office visit Adela Cole SOLID PROPELLANT PROCESSOR 02/14/2015 Office visit Leonardo Cowan SCRIPT MANAGER 02/08/2015 Office visit Adela Cole SOLID PROPELLANT PROCESSOR 02/07/2015 Office visit Leonardo Cowan SCRIPT MANAGER 01/11/2015 Office visit Adela Cole SOLID PROPELLANT PROCESSOR 12/28/2014 Office visit Chelsea Rodríguez SCRIPT MANAGER 12/14/2014 Nurse visit Adela Cole SOLID PROPELLANT PROCESSOR 11/23/2014 Nurse visit Adela Cole SOLID PROPELLANT PROCESSOR 10/26/2014 Office visit Adela PITTMANP 10/12/2014 Office visit 10/12/2014 Office visit Chelsea Rodríguez SCRIPT MANAGER 10/05/2014 Nurse visit Adela Cole SOLID PROPELLANT PROCESSOR 09/07/2014 Office visit Adela PITTMANP 08/17/2014 Office visit 08/17/2014 Office visit 08/17/2014 Office visit Chelsea Rodríguez SCRIPT MANAGER 08/14/2014 Office visit Adela Cole SOLID PROPELLANT PROCESSOR 07/27/2014 Office visit Adela PITTMANP 2014 Office visit Adela PITTMANP 2014 Office visit Mica Lr SCRIPT MANAGER 06/28/2014 Nurse visit Adela PITTMANP 05/31/2014 Office visit Adela Cole SOLID PROPELLANT PROCESSOR 05/03/2014 Voided Adela PITTMANP 04/26/2014 Office visit Mica Lr SCRIPT MANAGER 04/05/2014 Office visit Adela PITTMANP 03/10/2014 Office visit Adela PITTMANP 02/28/2014 Office visit Mica Lr SCRIPT MANAGER 02/24/2014 Office visit Adela PITTMANP 02/06/2014 Office visit Adela PITTMANP 01/10/2014 Nurse visit Suzan Liang MD 01/06/2014 Office visit Mica Lr SCRIPT MANAGER 12/15/2013 Office visit Adela PITTMANP 11/17/2013 Office visit Chelsea Rodríguez SCRIPT MANAGER 11/17/2013 Office visit Adela AlexMarcus Cole SOLID PROPELLANT PROCESSOR 10/20/2013 Office visit Adela Cole SOLID PROPELLANT PROCESSOR 09/22/2013 Office visit Adela AlexMarcus Cole SOLID PROPELLANT PROCESSOR 08/30/2013 Office visit Chelsea Rodríguez SCRIPT MANAGER 08/26/2013 Office visit Beti MMarcus Reyna SCRIPT MANAGER 07/29/2013 Office visit Adela Cole SOLID PROPELLANT PROCESSOR 07/06/2013 [facility] Elmira Campbell MD 07/01/2013 Office visit Adela MMarcus Cole SOLID PROPELLANT PROCESSOR 06/06/2013 Office visit Adela M. Douglas SOLID PROPELLANT PROCESSOR 05/31/2013 Office visit Chelsea Rodríguez SCRIPT MANAGER 05/11/2013 Office visit Adela AlexMarcus Cole SOLID PROPELLANT PROCESSOR 03/22/2013 Office visit Adela Cole SOLID PROPELLANT PROCESSOR 03/10/2013 Office visit Adela Manjit Douglas SOLID PROPELLANT PROCESSOR 03/04/2013 Office visit Adela Cole SOLID PROPELLANT PROCESSOR 03/02/2013 Office visit Odette Elam MD 02/22/2013 Office visit Adela Cole SOLID PROPELLANT PROCESSOR 01/28/2013 Office visit Chelsea Rodríguez SCRIPT MANAGER 01/25/2013 Office visit Adela Cole SOLID PROPELLANT PROCESSOR 12/27/2012 Office visit Adela Cole SOLID PROPELLANT PROCESSOR 12/07/2012 Hospital Pablo Croft MD 11/24/2012 Office visit Pablo Croft MD 11/02/2012 Office visit Kylah Wright SCRIPT MANAGER 11/02/2012 Office visit Mica Lr SCRIPT MANAGER 10/05/2012 [facility] Pablo Croft MD 09/30/2012 Office visit Kylah Wright SCRIPT MANAGER 09/01/2012 Office visit Kylah Wright SCRIPT MANAGER 07/21/2012 Office visit Odette Elam MD 06/16/2012 Office visit Pablo Croft MD 05/11/2012 [facility] Pablo Croft MD 04/28/2012 Office visit Pablo Croft MD 04/20/2012 Office visit Odette Elam MD 03/29/2012 Office visit Pablo Croft MD 03/16/2012 [facility] Pablo Croft MD 03/09/2012 [facility] Pablo Croft MD 02/24/2012 [facility] Pablo Croft MD 02/11/2012 Office visit Pablo Croft MD 01/28/2012 Office visit Pablo Croft MD 01/19/2012 Office visit Odette Elam MD 12/03/2011 Office visit Reji Bowens MD 11/12/2011 Office visit Alison Antoine APRN 10/28/2011 Procedures Reji Bowens MD 10/07/2011 Office visit Odette Elam MD 09/04/2011 Surgery Reji Bowens MD 08/15/2011 Surgery Reji Bowens MD 07/22/2011 [facility] Naveen Aguilar MD 07/22/2011 [facility] Reji Bowens MD 07/14/2011 Surgery Reji Bowens MD 06/26/2011 Office visit Odette Elam MD 06/24/2011 Office visit Reji Bowens MD 12/04/2010 [facility] Asha Church MD
--- OUTSIDE RECORDS SUMMARY | 2018-02-14 10:41 | XMS REPORT ---
Author Chelsea Soliz Organization [facility] Address [address] [place], [place] [id number] Care Team Providers Care Orthotic Practitioner Name Role Phone Chelsea Rodríguez PCP Unavailable Allergies and Adverse Reactions Name Reaction Notes Keflex yeast infection does not want to take due to causes yeast infection Plan of Treatment Planned Activity Comments Planned Date Planned Time Plan/Goal ELECTROCARDIOGRAM COMPLETE 06/21/2015 12:00 AM CARDIOVASCULAR STRESS TEST 06/22/2015 12:00 AM METABOLIC PANEL TOTAL CA 10/12/2014 12:00 AM Medications Active Name Start Date Estimated Completion Date SIG Comments meloxicam 15 mg oral tablet 12/28/2014 take 1 tablet (15 mg) by oral route once daily for 30 days alprazolam 0.5 mg oral tablet 06/28/2015 09/26/2015 take 1 tablet by oral route every 6 hours for 30 days amitriptyline 75 mg oral tablet 06/21/2015 12/18/2015 take 1 tablet (75 mg) by oral route once daily at bedtime for 30 days Cymbalta 30 mg oral capsule,delayed release(DR/EC) 06/21/2015 12/18/2015 take 1 capsule (30 mg) by oral route once daily for 30 days Name Start Date Expiration [...] tablets,dose pack 01/06/2014 take as directed Zithromax Z-Odnn 250 mg oral tablet 01/06/2014 01/11/2014 take [...] then Take 1 tab x 2 days. [place] 10-325 mg oral tablet 05/03/2015 06/02/2015 take 1 tablet by oral route every 6 hours as needed for 30 days Discontinued Name Start Date Discontinued Date [...] THE XANAX effective but changed to elavil Problem List Description Status Onset Anxiety Active Arthritis unspecified Active Diverticulitis Of Colon Active Sacroiliitis Active Pelvic Pain Active 06/26/2011 Family history of breast cancer Active 06/26/2011 Back pain Active Depression and anxiety Active Allergic rhinitis Active 11/17/2013 Depression Active 08/17/2014 Anxiety Active 08/17/2014 Depression Active 03/27/2015 Vital Signs Date Time BP-Sys(mm[Hg] BP-[place](mm[Hg]) HR(bpm) RR(rpm) Temp WT HT HC BMI BSA BMI Percentile O2 Sat(%) 06/21/2015 3:50:00 PM 127 mmHg 87 mmHg [...] rpm 98.7 F 166.25 lbs 70 in 23.85 kg/m2 1.93 m2 100 % 10/05/2014 3:05:00 PM 142 mmHg 78 mmHg 74 bpm 18 rpm 97.9 F 167 lbs 70 in 23.9618 kg/m 1.9342 m 09/07/2014 3:01:00 PM 132 mmHg 84 mmHg 71 bpm 20 rpm 96.8 F 167 lbs 68 in 25.39 kg/m2 1.91 m2 08/17/2014 11:16:00 AM 128 mmHg 64 mmHg 117 bpm 18 rpm 99 F 167.5 lbs 70 in 24.0335 kg/m 1.9371 m 98 % 08/14/2014 10:09:00 AM 144 mmHg 72 mmHg 74 bpm 20 rpm 97 F 168 lbs 70 in 24.11 kg/m2 1.94 m2 07/27/2014 3:04:00 PM 126 mmHg 84 mmHg 68 bpm 20 rpm 97.2 F 168 lbs 70 in 24.1052 kg/m 1.94 m 2014 2:07:00 PM 104 mmHg 62 mmHg 75 bpm 20 rpm 97.6 F 172 lbs 70 in 24.68 kg/m2 1.96 m2 2014 11:16:00 AM 130 mmHg 95 mmHg 114 bpm 20 rpm 97.8 F 177 lbs 70 in 25.3966 kg/m 1.9913 m 100 % 06/28/2014 2:25:00 PM 142 mmHg 86 mmHg 78 bpm 18 rpm 97.4 F 164 lbs 70 in 23.53 kg/m2 1.92 m2 05/31/2014 2:57:00 PM 124 mmHg 80 mmHg 88 bpm 18 rpm 97.4 F 169 lbs 04/26/2014 3:42:00 PM 118 mmHg 84 mmHg 116 bpm 20 rpm 97.6 F 161 lbs 70 in 23.10 kg/m2 1.90 m2 98 % 04/05/2014 2:50:00 PM 104 mmHg 60 mmHg 76 bpm 16 rpm 98.2 F 158.25 lbs 70 in 22.7063 kg/m 1.8829 m 03/10/2014 10:59:00 AM 118 mmHg 90 mmHg 76 bpm 16 rpm 98.1 F 155 lbs 70 in 22.24 kg/m2 1.86 m2 02/28/2014 9:25:00 AM 109 mmHg 77 mmHg 107 bpm 20 rpm 98.7 F 162.8 lbs 70 in 23.3591 kg/m 1.9097 m 98 % 02/24/2014 8:20:00 AM 122 mmHg 80 mmHg 74 bpm 16 rpm 98.2 F 158.125 lbs 70 in 22.69 kg/m2 1.88 m2 02/06/2014 4:11:00 PM 124 mmHg 80 mmHg 74 bpm 16 rpm 98 F 156.5 lbs 70 in 22.4552 kg/m 1.8724 m 01/06/2014 10:01:00 AM 130 mmHg 100 mmHg 121 bpm 18 rpm 98.5 F 157.2 lbs 70 in 22.56 kg/m2 1.88 m2 100 % 12/15/2013 9:08:00 AM 124 mmHg 80 mmHg 84 bpm 16 rpm 97.6 F 151.5 lbs 70 in 21.7378 kg/m 1.8423 m 11/17/2013 10:04:00 AM 122 mmHg 64 mmHg 80 bpm 18 rpm 97.5 F 149.5 lbs 70 in 21.45 kg/m2 1.83 m2 100 % 11/17/2013 9:06:00 AM 104 mmHg 70 mmHg 82 bpm 16 rpm 97.2 F 148.187 lbs 70 in 21.2625 kg/m 1.822 m 10/20/2013 8:21:00 AM 108 mmHg 80 mmHg 82 bpm 16 rpm 97.3 F 145 lbs 70 in 20.81 kg/m2 1.80 m2 09/22/2013 8:37:00 AM 104 mmHg 80 mmHg 84 bpm 16 rpm 97.8 F 144.375 lbs 70 in 20.7154 kg/m 1.7984 m 08/30/2013 2:23:00 PM 110 mmHg 72 mmHg 82 bpm 18 rpm 97.5 F 144.5 lbs 70 in 20.73 kg/m2 1.80 m2 99 % 08/26/2013 8:57:00 AM 144 mmHg 72 mmHg 73 bpm 97.7 F 148 lbs 70 in 21.2356 kg/m 1.8209 m 07/29/2013 8:59:00 AM 98 mmHg 76 mmHg 76 bpm 16 rpm 97 F 146.375 lbs 70 in 21.00 kg/m2 1.81 m2 07/01/2013 9:03:00 AM 124 mmHg 74 mmHg 78 bpm 20 rpm 97.5 F 06/06/2013 9:45:00 AM 158 mmHg 100 mmHg 64 bpm 16 rpm 97.4 F 150.125 lbs 70 in 21.54 kg/m2 1.83 m2 05/31/2013 9:58:00 AM 128 mmHg 64 mmHg 110 bpm 18 rpm 98.7 F 152 lbs 70 in 21.8095 kg/m 1.8453 m 97 % 05/11/2013 3:00:00 PM 122 mmHg 74 mmHg 82 bpm 16 rpm 98.2 F 151.25 lbs 70 in 21.70 kg/m2 1.84 m2 03/22/2013 3:21:00 PM 144 mmHg 90 mmHg 88 bpm 18 rpm 97 F 149.125 lbs 70 in 21.397 kg/m 1.8278 m 03/10/2013 3:24:00 PM 110 mmHg 82 mmHg 106 bpm 18 rpm 97.2 F 147 lbs 70 in 21.09 kg/m2 1.81 m2 03/04/2013 9:03:00 AM 110 mmHg 64 mmHg 72 bpm 16 rpm 97.2 F 143 lbs 70 in 20.5182 kg/m 1.7899 m 03/02/2013 3:51:00 PM 122 mmHg 78 mmHg 106 bpm 16 rpm 98.5 F 141.25 lbs 70 in 20.27 kg/m2 1.78 m2 97 % 02/22/2013 3:57:00 PM 124 mmHg 84 mmHg 70 bpm 16 rpm 97 F 141.25 lbs 70 in 20.2671 kg/m 1.7789 m 01/28/2013 8:48:00 AM 138 mmHg 64 mmHg 92 bpm 18 rpm 96.6 F 138.125 lbs 70 in 19.82 kg/m2 1.76 m2 100 % 01/25/2013 3:32:00 PM 118 mmHg 70 mmHg 84 bpm 16 rpm 97.8 F 139.25 lbs 70 in 19.9801 kg/m 1.7662 m 12/27/2012 2:04:00 PM 132 mmHg 98 mmHg 78 bpm 16 rpm 98.3 F 138 lbs 70 in 19.80 kg/m2 1.76 m2 11/24/2012 1:20:00 PM 124 mmHg 80 mmHg 74 bpm 169 rpm 98 F 136 lbs 70 in 19.5138 kg/m 1.7455 m 11/02/2012 10:02:00 AM 112 mmHg 54 mmHg 74 bpm 18 rpm 97.4 F 134 lbs 70 in 19.23 kg/m2 1.73 m2 11/02/2012 9:12:00 AM 104 mmHg 78 mmHg 95 bpm 20 rpm 97.9 F 134 lbs 70 in 19.2268 kg/m 1.7326 m 100 % 09/30/2012 3:23:00 PM 132 mmHg 74 mmHg 92 bpm 18 rpm 98.6 F 137 lbs 70 in 19.66 kg/m2 1.75 m2 09/01/2012 3:54:00 PM 102 mmHg 62 mmHg 88 bpm 16 rpm 09/01/2012 3:01:00 PM 104 mmHg 64 mmHg 88 bpm 18 rpm 97.7 F 134 lbs 70 in 19.23 kg/m2 1.73 m2 07/21/2012 4:04:00 PM 102 mmHg 70 mmHg 81 bpm 16 rpm 98.3 F 127.5 lbs 100 % 06/16/2012 4:11:00 PM 108 mmHg 74 mmHg 76 bpm 16 rpm 98.9 F 127.125 lbs 70 in 18.24 kg/m2 1.69 m2 04/28/2012 4:09:00 PM 124 mmHg 76 mmHg 72 bpm 16 rpm 98.5 F 130 lbs 70 in 18.6529 kg/m 1.7066 m 04/20/2012 4:01:00 PM 112 mmHg 76 mmHg [...] Social History Name Description Comments Tobacco Current some day smoker Alcohol Use - Rare Children at home age 16 Lives with spouse in a house bachelors degree College graduate Denies illicit substance 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[employer] 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 History of Procedures [...] 12:00 AM ASSAY OF TROPONIN QUANT Returned 06/24/2011 12:00 AM ASSAY THYROID STIM HORMONE Returned 06/24/2011 12:00 AM ASSAY OF GONADOTROPIN (F[facility]) Returned 06/24/2011 12:00 AM CYTOPATH TBS C/V MANUAL Returned 06/24/2011 12:00 AM SPECIMEN HANDLING OFFICE-LAB Reviewed 06/24/2011 12:00 AM MAMMOGRAM SCREENING Returned 06/24/2011 12:00 AM BIOPSY OF UTERUS LINING Reviewed 07/14/2011 12:00 AM COMPLETE CBC W/AUTO DIFF WBC Returned 07/14/2011 12:00 AM COMPREHEN METABOLIC PANEL Returned 07/14/2011 12:00 AM Type and screen Returned 10/29/2011 12:00 AM CYSTOMETROGRAM W/FRAME RUNNER&UP Reviewed 10/29/2011 12:00 AM ELECTRO-UROFLOWMETRY FIRST Reviewed 10/29/2011 12:00 AM INTRAABDOMINAL PRESSURE TEST Reviewed 11/12/2011 12:00 AM X-RAY URETHRA/BLADDER Reviewed 11/12/2011 12:00 AM X-RAY EXAM SI JOINTS 3/> VWS Reviewed 01/28/2012 12:00 AM MRI LUMBAR SPINE W/O DYE Returned 04/20/2012 12:00 AM THER/PROPH/DIAG INJ SC/IM Reviewed 04/20/2012 12:00 AM Depo-Medrol, Per 120 Mg [facility]#3942-2180-64 Reviewed 07/21/2012 12:00 AM THER/PROPH/DIAG INJ SC/IM Reviewed 07/21/2012 12:00 AM Depo-Medrol, Per 120 Mg [facility]#3803-3413-78 Reviewed 09/01/2012 12:00 AM Drug Screen (Non-Medicare) Reviewed 09/01/2012 12:00 AM Kenalog, Per 10 Mg [facility]#4655-9401-69 Reviewed 11/02/2012 12:00 AM Norflex, Up to 60 Mg [facility]#29077-893-48 Reviewed 11/02/2012 12:00 AM INJ TRIGGER POINT 1/2 MUSCL Reviewed 11/02/2012 12:00 AM Bupivicaine, 30 ml [facility]#8618-0506-70 Reviewed 11/02/2012 12:00 AM THER/PROPH/DIAG INJ SC/IM Reviewed 11/02/2012 12:00 AM Norflex, Up to 60 Mg [facility]#35923-362-38 Reviewed 12/27/2012 12:00 AM COMPLETE CBC W/AUTO DIFF WBC Returned 12/27/2012 12:00 AM COMPREHEN METABOLIC PANEL Returned 12/27/2012 12:00 AM ASSAY THYROID STIM HORMONE Returned 12/27/2012 12:00 AM VITAMIN B-12 Returned 12/27/2012 12:00 AM ASSAY OF FERRITIN Returned 12/27/2012 12:00 AM ANTINUCLEAR ANTIBODIES Reviewed 12/27/2012 12:00 AM DNA ANTIBODY QUILEUTE Reviewed 12/27/2012 12:00 AM NUCLEAR ANTIGEN ANTIBODY [...] 05/31/2013 12:00 AM Decadron, Per 1 Mg [facility]# [address]-62 Reviewed 05/31/2013 12:00 AM Depo-Medrol, Per 80 Mg [facility]#9548-0568-56 Reviewed 05/31/2013 12:00 AM THER/PROPH/DIAG INJ SC/IM Reviewed 06/06/2013 12:00 AM MUSCLE TEST 2 LIMBS Reviewed 06/06/2013 12:00 AM Nerve conduction studies with F-wave Reviewed 08/26/2013 12:00 AM MAMMOGRAM SCREENING Returned 08/26/2013 12:00 AM MAMMOGRAM SCREENING Reviewed 08/30/2013 12:00 AM THER/PROPH/DIAG INJ SC/IM Reviewed 08/30/2013 12:00 AM Decadron, Per 1 Mg [facility]# [address]-60 Reviewed 08/30/2013 12:00 AM Depo-Medrol, Per 80 Mg [facility]#5855-1742-92 Reviewed 11/17/2013 12:00 AM THER/PROPH/DIAG INJ SC/IM Reviewed 11/17/2013 12:00 AM Decadron, Per 1 Mg [facility]# [address]-94 Reviewed 11/17/2013 12:00 AM Depo-Medrol 40mg Reviewed 01/06/2014 12:00 AM THER/PROPH/DIAG INJ SC/IM Reviewed 01/06/2014 12:00 AM Decadron, Per 1 Mg [facility]# [address]-70 Reviewed 01/06/2014 12:00 AM Rocephin 1 gram [facility]#1406-0042-86 Reviewed 01/10/2014 12:00 AM OFFICE/OUTPATIENT VISIT EST [...] 10/12/2014 12:00 AM Decadron, Per 1 Mg [facility]# [address]-94 Reviewed 10/12/2014 12:00 AM Depo-Medrol 40mg Reviewed [...] 10.90 g/dLHCT 33.60 %MCV 94.0 fLMCH 30.40 pgMCHC 32.40 g/dLRDW CV 13.10 %MPV 9.80 fLPLT 199 12/30/2012 11:35 AM WBC 6.7 RBC 4.98 HGB 15.20 g/dLHCT 45.50 %MCV 91.0 fLMCH 30.50 pgMCHC 33.40 g/dLRDW CV 12.70 %MPV 9.60 fLPLT [...] 9.50 mg/ dLeGFR >60 mL/min/1.73mD-DIMER QUANT 0.33 History Of Immunizations Name Date Admin Mfg Name Mfg Code Trade Name Lot# Route Inj Vis Given Vis Pub CVX Influenza 03/02/2013 sanofi pasteur PMC Fluzone [id number] Intramuscular Left Deltoid 03/02/2013 12/17/2012 141 Pneumococcal 02/28/2014 [employer]ck [employer] MSD Pneumovax 23 [id number] Intramuscular Left Deltoid 02/28/2014 02/27/2009 33 Influenza 03/23/2015 sanofi pasteur PMC Fluzone Quadrivalent [id number] Intramuscular Right Deltoid 03/23/2015 12/29/2014 140 History of Past Illness Name Date of Onset Comments Anxiety Arthritis unspecified Diverticulitis Of Colon Sacroiliitis Abnormal Uterine Bleeding 06/26/2011 Endometrial hyperplasia, unspecified 06/26/2011 Pelvic Pain 06/26/2011 Family history of breast cancer 06/26/2011 Kidney Calculus Constipation Depression and anxiety Back pain Allergic rhinitis 11/17/2013 Depression 03/27/2015 Anxiety 08/17/2014 Abnormal Uterine Bleeding Jun 24 2011 4:03PM [...] lumbosacral Sep 2011 9:12AM SI joint pain Jan 28 2012 9:12AM Radiculopathy, lumbosacral Feb 11 2012 3:58PM SI joint pain Feb 11 2012 [...] SI joint pain Sep 01 2012 3:06PM shelter medication use Sep 01 2012 4:05PM Wrist [...] 25 2013 3:35PM SI joint pain Jan 25 2013 3:35PM Neuralgia Jan 25 2013 3:35PM Anxiety Disorder Jan 6 2012 [...] 3:51PM Chest pain Jun 22 2015 10:41AM Payers Insurance Name Company Name Plan Name Plan Number Policy Number Policy Group Number Start Date R UMR [id number] N/[facility] [employer] [facility] [id number] N/A [employer] [facility] [id number] Saturday, 2011 [employer] [place] [id number] N/A [employer] [facility] [id number] Thursday, 2013 History of Encounters Visit Date Visit Type Provider 06/21/2015 Office visit Chelsea Rodríguez STEEL PLATE CAULKER 05/03/2015 Nurse visit Adela Cole INFORMATION BROKER 04/12/2015 Office visit Adela MMarcus Cole INFORMATION BROKER 03/23/2015 Office visit Chelsea Rodríguez STEEL PLATE CAULKER 03/08/2015 Office visit Adela Manjit Cole INFORMATION BROKER 02/14/2015 Office visit Leonardo Cowan STEEL PLATE CAULKER 02/08/2015 Office visit Adela AlexMarcus Douglas PITTMANP 02/07/2015 Office visit Leonardo Cowan STEEL PLATE CAULKER 01/11/2015 Office visit Adela Cole INFORMATION BROKER 12/28/2014 Office visit Chelsea Rodríguez STEEL PLATE CAULKER 12/14/2014 Nurse visit Adela Cole INFORMATION BROKER 11/23/2014 Nurse visit Adela Cole INFORMATION BROKER 10/26/2014 Office visit Adela Cole INFORMATION BROKER 10/12/2014 Office visit 10/12/2014 Office visit Chelsea Rodríguez STEEL PLATE CAULKER 10/05/2014 Nurse visit Adela Cole INFORMATION BROKER 09/07/2014 Office visit Adela PITTMANP 08/17/2014 Office visit 08/17/2014 Office visit 08/17/2014 Office visit Chelsea Rodríguez STEEL PLATE CAULKER 08/14/2014 Office visit Adela PITTMANP 07/27/2014 Office visit Adela PITTMANP 2014 Office visit Adela PITTMANP 2014 Office visit Mica Lr STEEL PLATE CAULKER 06/28/2014 Nurse visit Adela PITTMANP 05/31/2014 Office visit Adela PITTMANP 05/03/2014 Voided Adela PITTMANP 04/26/2014 Office visit Mica Lr STEEL PLATE CAULKER 04/05/2014 Office visit Adela PITTMANP 03/10/2014 Office visit Adela PITTMANP 02/28/2014 Office visit Mica Lr STEEL PLATE CAULKER 02/24/2014 Office visit Adela PITTMANP 02/06/2014 Office visit Adela PITTMANP 01/10/2014 Nurse visit Suzan Liang MD 01/06/2014 Office visit Mica Lr STEEL PLATE CAULKER 12/15/2013 Office visit Adela PITTMANP 11/17/2013 Office visit Chelsea Rodríguez STEEL PLATE CAULKER 11/17/2013 Office visit Adela PITTMANP 10/20/2013 Office visit Adela PITTMANP 09/22/2013 Office visit Adela PITTMANP 08/30/2013 Office visit Chelsea Rodríguez STEEL PLATE CAULKER 08/26/2013 Office visit Beti Reyna STEEL PLATE CAULKER 07/29/2013 Office visit Adela Cole INFORMATION BROKER 07/06/2013 Procedures Elmira Campbell MD 07/01/2013 Office visit Adela AlexMarcus Cole INFORMATION BROKER 06/06/2013 Office visit Adela Cole INFORMATION BROKER 05/31/2013 Office visit Chelsea Rodríguez STEEL PLATE CAULKER 05/11/2013 Office visit Adela Saravia Douglas INFORMATION BROKER 03/22/2013 Office visit Adela M. Douglas INFORMATION BROKER 03/10/2013 Office visit Adelacatherine Cole INFORMATION BROKER 03/04/2013 Office visit Adela Manjit Douglas INFORMATION BROKER 03/02/2013 Office visit Odette Elam MD 02/22/2013 Office visit Adela AlexMarcus Cole INFORMATION BROKER 01/28/2013 Office visit Chelsea Rodríguez STEEL PLATE CAULKER 01/25/2013 Office visit Adela Manjit Douglas INFORMATION BROKER 12/27/2012 Office visit Adela Cole INFORMATION BROKER 12/07/2012 Hospital Pablo Croft MD 11/24/2012 Office visit Pablo Croft MD 11/02/2012 Office visit Kylah Wright STEEL PLATE CAULKER 11/02/2012 Office visit Mica Lr STEEL PLATE CAULKER 10/05/2012 Hospital Pablo Croft MD 09/30/2012 Office visit Kylah Wright STEEL PLATE CAULKER 09/01/2012 Office visit Kylah Wright STEEL PLATE CAULKER 07/21/2012 Office visit Odette Elam MD 06/16/2012 Office visit Pablo Croft MD 05/11/2012 Hospital Pablo Croft MD 04/28/2012 Office visit Pablo Croft MD 04/20/2012 Office visit Odette Elam MD 03/29/2012 Office visit Pablo Croft MD 03/16/2012 Hospital Pablo Croft MD 03/09/2012 Hospital Pablo Croft MD 02/24/2012 Hospital Pablo Croft MD 02/11/2012 Office visit Pablo Croft MD 01/28/2012 Office visit Pablo Croft MD 01/19/2012 Office visit Odette Elam MD 12/03/2011 Office visit Reji Bowens MD 11/12/2011 Office visit Alison Antoine STEEL PLATE CAULKER 10/28/2011 Procedures Reji Bowens MD 10/07/2011 Office visit Odette Elam MD 09/04/2011 Surgery Reji Bowens MD 08/15/2011 Surgery Reji Bowens MD 07/22/2011 [facility] Naveen Aguilar MD 07/22/2011 [facility] Reji Bowens MD 07/14/2011 Surgery Reji Bowens MD 06/26/2011 Office visit Odette Elam MD 06/24/2011 Office visit Reji Bowens MD 12/04/2010 [facility] Asha Church MD
--- OUTSIDE RECORDS SUMMARY | 2018-02-14 10:44 | XMS REPORT ---
Author Author Chelsea Rodríguez Organization [facility] Address [address] [place], [place] [address] Care Team Providers Care Processing Technologist Name Role Phone Chelsea Rodríguez PCP Chelsea [...] route daily meloxicam 15 mg oral tablet 05/22/2017 TAKE 1 TABLET BY MOUTH ONCE DAILY venlafaxine 75 mg oral capsule,extended release 24hr 08/21/2017 02/17/2018 TAKE 1 CAPSULE BY MOUTH DAILY bupropion HCl 75 mg oral tablet 09/07/2017 take 2 tablets by oral route 2 times a day Ambien CR 12.5 mg oral tablet,ext release multiphase 09/08/2017 take 1 tablet (12.5 mg) by oral route once daily at bedtime alprazolam 0.5 mg oral tablet 09/15/2017 11/14/2017 take 1 tablet by oral route Q6 PRN for 30 days Name Start Date Expiration [...] route every 6 hours for 30 days Grase 30-Day Starter Pack 300 mg (9)- 600 [...] then Take 1 tab x 2 days. 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 [...] 11/27/2015 12:00 AM Decadron, Per 1 Mg [facility]# [address]-95 Reviewed 11/27/2015 12:00 AM Depo-Medrol 40mg Reviewed [...] Reviewed 04/24/2016 12:00 AM Toradol 60 Mg [facility]#9188-1869-13 Reviewed 06/11/2016 12:00 AM Consult/Referral Reviewed 06/11/2016 2:41 PM URINALYSIS AUTO W/O SCOPE Reviewed 06/11/2016 12:00 AM URINE CULTURE/COLONY COUNT Reviewed 06/13/2016 12:00 AM Splint, prefabricated, wrist or ankle Reviewed 07/31/2016 12:00 AM LIPID PANEL Reviewed 07/31/2016 12:00 AM MAMMOGRAPHY SCREENING, DIGITAL Reviewed 10/29/2011 12:00 AM CYSTOMETROGRAM W/COMMUNICATIONS TECHNOLOGIST&UP Reviewed 10/29/2011 12:00 AM ELECTRO-UROFLOWMETRY FIRST Reviewed [...] 04/20/2012 12:00 AM Depo-Medrol, Per 120 Mg [facility]#6762-5426-27 Reviewed 07/20/2017 12:00 AM INJECT SPINE LUMBAR/SACRAL Returned 2017 12:00 AM COMPLETE CBC W/AUTO DIFF WBC Returned 2017 12:00 AM COMPREHEN METABOLIC PANEL Returned 2017 12:00 AM LIPID PANEL Returned 2017 12:00 AM ASSAY THYROID STIM HORMONE Returned 2017 12:00 AM MAMMOGRAPHY SCREENING, DIGITAL Returned 07/21/2012 12:00 AM THER/PROPH/DIAG INJ SC/IM Reviewed 07/21/2012 12:00 AM Depo-Medrol, Per 120 Mg [facility]#9579-9970-20 Reviewed 10/14/2017 12:38 PM ASSAY GLUCOSE BLOOD QUANT Reviewed 10/14/2017 12:38 PM GLUCOSE BLOOD TEST Reviewed 09/01/2012 12:00 AM Drug Screen (Non-Medicare) Reviewed 09/01/2012 12:00 AM DRAIN/INJ JOINT/BURSA W/O US Reviewed 09/01/2012 12:00 AM Kenalog, Per 10 Mg [facility]#5251-2608-99 Reviewed 11/02/2012 12:00 AM Norflex, Up to 60 Mg [facility]#24809-383-91 Reviewed 11/02/2012 12:00 AM INJ TRIGGER POINT 1/2 MUSCL Reviewed 11/02/2012 12:00 AM Bupivicaine, 30 ml [facility]#5855-4350-30 Reviewed 11/02/2012 12:00 AM THER/PROPH/DIAG INJ SC/IM Reviewed 11/02/2012 12:00 AM Norflex, Up to 60 Mg [facility]#13758-565-61 Reviewed 12/27/2012 12:00 AM COMPLETE CBC W/AUTO DIFF WBC Reviewed 12/27/2012 12:00 AM COMPREHEN METABOLIC PANEL Reviewed 12/27/2012 12:00 AM ASSAY THYROID STIM HORMONE Reviewed 12/27/2012 12:00 AM VITAMIN B-12 Reviewed 12/27/2012 12:00 AM ASSAY OF FERRITIN Reviewed 12/27/2012 12:00 AM ANTINUCLEAR ANTIBODIES Reviewed 12/27/2012 12:00 AM DNA ANTIBODY INUPIAT Reviewed 12/27/2012 12:00 AM NUCLEAR ANTIGEN ANTIBODY [...] 05/31/2013 12:00 AM Decadron, Per 1 Mg [place]# [address]-15 Reviewed 05/31/2013 12:00 AM Depo-Medrol, Per 80 Mg ND#9824-4982-35 Reviewed 05/31/2013 12:00 AM THER/PROPH/DIAG INJ SC/IM Reviewed 06/06/2013 12:00 AM MUSCLE TEST 2 LIMBS Reviewed 06/06/2013 12:00 AM Nerve conduction studies with F-wave Reviewed 08/26/2013 12:00 AM MAMMOGRAM SCREENING Reviewed 08/26/2013 12:00 AM MAMMOGRAM SCREENING Reviewed 08/30/2013 12:00 AM THER/PROPH/DIAG INJ SC/IM Reviewed 08/30/2013 12:00 AM Decadron, Per 1 Mg [facility]# [address]-93 Reviewed 08/30/2013 12:00 AM Depo-Medrol, Per 80 Mg ND#2686-1181-37 Reviewed 11/17/2013 12:00 AM THER/PROPH/DIAG INJ SC/IM Reviewed 11/17/2013 12:00 AM Decadron, Per 1 Mg [facility]# [address]-03 Reviewed 11/17/2013 12:00 AM Depo-Medrol 40mg Reviewed 01/06/2014 12:00 AM THER/PROPH/DIAG INJ SC/IM Reviewed 01/06/2014 12:00 AM Decadron, Per 1 Mg [facility]# [address]-31 Reviewed 01/06/2014 12:00 AM Rocephin 1 gram [facility]#8233-5722-50 Reviewed 01/10/2014 12:00 AM OFFICE/OUTPATIENT VISIT EST [...] 10/12/2014 12:00 AM Decadron, Per 1 Mg [facility]# [address]-32 Reviewed 10/12/2014 12:00 AM Depo-Medrol 40mg Reviewed [...] CVX Influenza 03/02/2013 sanofi pasteur PMC FLUZONE [id number] Intramuscular Left Deltoid 03/02/2013 12/17/2012 141 X 02/28/2014 Merck & Co., Inc. MSD PNEUMOVAX 23 [id number] Intramuscular Left Deltoid 02/28/2014 02/27/2009 33 Influenza 03/23/2015 sanofi pasteur PMC Fluzone Quadrivalent [id number] Intramuscular Right Deltoid 03/23/2015 12/29/2014 140 Influenza 03/04/2016 Triprental.comofi pasteur PMC Fluzone Quadrivalent UI 684 AE Intramuscular Left Deltoid 03/04/2016 12/29/2014 141 Tdap 02/20/2017 GlaxoSmithKline SKB BOOSTRIX [id number] Intramuscular Right Arm 02/20/2017 07/18/2014 115 Influenza 02/20/2017 sanofi Bettymovil PMC Fluzone Quadrivalent [id number] Intramuscular Left Arm 02/20/2017 12/29/2014 150 History [...] Sep 3 2012 3:35PM SI joint pain Sep 3 2012 3:35PM Neuralgia Jan 3 2013 [...] Hip Jul 01 2013 9:09AM Lumbosacral Radiculopathy b 2013 8:30AM Radiculopathy, lumbosacral Jul 29 2013 [...] Low back pain Nov 03 2017 3:37PM Payers Insurance Name Company Name Plan Name Plan Number Policy Number Policy Group Number Start Date [employer] [place] [id number] N/A [employer] [place] [id number] Saturday, 2011 [employer] [place] [id number] N/A [employer] [place] [id number] Thursday, 2013 UMR UMR [id number] N/A [employer] Braums [id number] N/A [employer] [place] [id number] N/A Res Care ResCare [id number] N/A [employer] [id number] N/A Res Care ResCare [id number] DOI [id number] May [employer] [place] [id number] N/A History of Encounters Visit Date Visit Type Provider 10/13/2017 Office visit Chelsea Rodríguez HEPATOLOGY PHYSICIAN 2017 Office visit Chelsea Rodríguez HEPATOLOGY PHYSICIAN 05/22/2017 Office visit Chelsea Rodríguez HEPATOLOGY PHYSICIAN 02/20/2017 Office visit Chelsea Rodríguez HEPATOLOGY PHYSICIAN 02/10/2017 Office visit Jeremy West DO 01/31/2017 Office visit Dimitri Beebe NP 11/20/2016 Office visit Chelsea Rodríguez HEPATOLOGY PHYSICIAN 08/29/2016 Office visit Chelsea Rodríguez HEPATOLOGY PHYSICIAN 07/31/2016 Office visit Chelsea Rodríguez HEPATOLOGY PHYSICIAN 06/11/2016 Office visit Chelsea Rodríguez HEPATOLOGY PHYSICIAN 06/05/2016 Office visit Leonardo Cowan HEPATOLOGY PHYSICIAN 05/14/2016 Office visit Chelsea Rodríguez HEPATOLOGY PHYSICIAN 05/05/2016 Office visit Leonardo Cowan HEPATOLOGY PHYSICIAN 04/24/2016 Office visit Chelsea Rodríguez HEPATOLOGY PHYSICIAN 04/07/2016 Office visit Chelsea Rodríguez HEPATOLOGY PHYSICIAN 03/04/2016 Office visit Chelsea Rodríguez HEPATOLOGY PHYSICIAN 01/14/2016 Office visit Chelsea Rodríguez HEPATOLOGY PHYSICIAN 01/09/2016 Office visit Leonardo Cowan HEPATOLOGY PHYSICIAN 01/04/2016 Office visit Leonardo Cowan HEPATOLOGY PHYSICIAN 11/27/2015 Office visit Chelsea Rodríguez HEPATOLOGY PHYSICIAN 08/23/2015 Office visit Chelsea Rodríguez HEPATOLOGY PHYSICIAN 07/19/2015 Office visit 07/19/2015 Office visit Chelsea Rodríguez HEPATOLOGY PHYSICIAN 06/21/2015 Office visit Chelsea Rodríguez HEPATOLOGY PHYSICIAN 05/03/2015 Nurse visit Adela Cole SLIME PLANT OPERATOR 04/12/2015 Office visit Adela Cole SLIME PLANT OPERATOR 03/23/2015 Office visit Chelsea Rodríguez HEPATOLOGY PHYSICIAN 03/08/2015 Office visit Adela JohnsonMarcus Douglas SLIME PLANT OPERATOR 02/14/2015 Office visit Leonardo Cowan HEPATOLOGY PHYSICIAN 02/08/2015 Office visit Adela Cole SLIME PLANT OPERATOR 02/07/2015 Office visit Leonardo Cowan HEPATOLOGY PHYSICIAN 01/11/2015 Office visit Adela Cole SLIME PLANT OPERATOR 12/28/2014 Office visit Chelsea Rodríguez HEPATOLOGY PHYSICIAN 12/14/2014 Nurse visit Adela Cole SLIME PLANT OPERATOR 11/23/2014 Nurse visit Adela Cole SLIME PLANT OPERATOR 10/26/2014 Office visit Adela PITTMANP 10/12/2014 Office visit 10/12/2014 Office visit Chelsea Rodríguez HEPATOLOGY PHYSICIAN 10/05/2014 Nurse visit Adela PITTMANP 09/07/2014 Office visit Adela PITTMANP 08/17/2014 Office visit 08/17/2014 Office visit 08/17/2014 Office visit Chelsea Rodríguez HEPATOLOGY PHYSICIAN 08/14/2014 Office visit Adela PITTMANP 07/27/2014 Office visit Adela PITTMANP 2014 Office visit Adela PITTMANP 2014 Office visit Mica Lr HEPATOLOGY PHYSICIAN 06/28/2014 Nurse visit Adela PITTMANP 05/31/2014 Office visit Adela PITTMANP 05/03/2014 Voided Adela PITTMANP 04/26/2014 Office visit Mica Lr HEPATOLOGY PHYSICIAN 04/05/2014 Office visit Adela PITTMANP 03/10/2014 Office visit Adela PITTMANP 02/28/2014 Office visit Mica Lr HEPATOLOGY PHYSICIAN 02/24/2014 Office visit Adela PITTMANP 02/06/2014 Office visit Adela PITTMANP 01/10/2014 Nurse visit Suzan Liang MD 01/06/2014 Office visit Mica Lr HEPATOLOGY PHYSICIAN 12/15/2013 Office visit Adela PITTMANP 11/17/2013 Office visit Chelsea Rodríguez HEPATOLOGY PHYSICIAN 11/17/2013 Office visit Adela PITTMANP 10/20/2013 Office visit Adela JohnsonMarcus Cole SLIME PLANT OPERATOR 09/22/2013 Office visit Adela AlexMarcus Cole SLIME PLANT OPERATOR 08/30/2013 Office visit Chelsea Rodríguez HEPATOLOGY PHYSICIAN 08/26/2013 Office visit Beti Reyna HEPATOLOGY PHYSICIAN 07/29/2013 Office visit Adela AlexMarcus Cole SLIME PLANT OPERATOR 07/06/2013 [facility] Elmira Campbell MD 07/01/2013 Office visit Adela M. Douglas SLIME PLANT OPERATOR 06/06/2013 Office visit Adela M. Douglas SLIME PLANT OPERATOR 05/31/2013 Office visit Chelsea Rodríguez HEPATOLOGY PHYSICIAN 05/11/2013 Office visit Adela M. Douglas SLIME PLANT OPERATOR 03/22/2013 Office visit Adela M. Douglas SLIME PLANT OPERATOR 03/10/2013 Office visit Adela M. Douglas SLIME PLANT OPERATOR 03/04/2013 Office visit Adela Manjit Douglas SLIME PLANT OPERATOR 03/02/2013 Office visit Odette Elam MD 02/22/2013 Office visit Adela Cole SLIME PLANT OPERATOR 01/28/2013 Office visit Chelsea Rodríguez HEPATOLOGY PHYSICIAN 01/25/2013 Office visit Adela Cole SLIME PLANT OPERATOR 12/27/2012 Office visit Adela Cole SLIME PLANT OPERATOR 12/07/2012 [facility] Pablo Croft MD 11/24/2012 Office visit Pablo Croft MD 11/02/2012 Office visit Kylah Wright HEPATOLOGY PHYSICIAN 11/02/2012 Office visit Mica Lr HEPATOLOGY PHYSICIAN 10/05/2012 [facility] Pablo Croft MD 09/30/2012 Office visit Kylah Wright HEPATOLOGY PHYSICIAN 09/01/2012 Office visit Kylah Wright HEPATOLOGY PHYSICIAN 07/21/2012 Office visit Odette Elam MD 06/16/2012 Office visit Pablo Croft MD 05/11/2012 [facility] Pablo Croft MD 04/28/2012 Office visit Pablo Croft MD 04/20/2012 Office visit Odette Elam MD 03/29/2012 Office visit Pablo Croft MD 03/16/2012 [facility] Pablo Croft MD 03/09/2012 [facility] Pablo Croft MD 02/24/2012 [facility] Pablo Croft MD 02/11/2012 Office visit Pablo Croft MD 01/28/2012 Office visit Pablo Croft MD 01/19/2012 Office visit Odette Elam MD 12/03/2011 Office visit Reji Bowens MD 11/12/2011 Office visit Alison Antoine APRN 10/28/2011 Procedures Reji Bowens MD 10/07/2011 Office visit Odette Elam MD 09/04/2011 Surgery Reji Bowens MD 08/15/2011 Surgery Reji Bowens MD 07/22/2011 [facility] Naveen Aguilar MD 07/22/2011 [facility] Reji Bowens MD 07/14/2011 Surgery Reji Bowens MD 06/26/2011 Office visit Odette Elam MD 06/24/2011 Office visit Reji Bowens MD 12/04/2010 [facility] Asha Church MD
--- OUTSIDE RECORDS SUMMARY | 2018-02-14 10:46 | XMS REPORT ---
Author Chelsea Soliz Organization [facility] Address [address] [place], [place] [id number] Care Team Providers Care Pre Assembly Wirer Name Role Phone Chelsea Rodríguez PCP Unavailable [...] same time each day for 30 days alprazolam 0.5 mg oral tablet 11/27/2015 02/25/2016 take 1 tablet by oral route every 6 hours for 30 days meloxicam 15 mg oral tablet 11/27/2015 TAKE 1 TABLET BY MOUTH ONCE DAILY Flonase Allergy Relief 50 mcg/actuation nasal spray,suspension 11/27/2015 inhale 1 spray (50 mcg) in each nostril by intranasal route once daily Restoril 15 mg oral capsule 01/14/2016 02/13/2016 take 1 capsule (15 mg) by oral route once daily at bedtime as needed for 30 days hydrocodone-acetaminophen 10-325 mg oral tablet Chantix Starting Month Donn 0.5 mg (11)- 1 mg (42) oral tablets,dose pack 2015 take as directed Chantix Continuing Month Donn 1 mg oral tablet 01/21/2016 04/14/2016 take 1 tablet (1 mg) with a glass of water by oral route 2 times per day after meals for 12 weeks Belsomra 20 mg oral tablet 02/13/2016 03/14/2016 take 1 tablet (20 mg) by oral [...] then Take 1 tab x 2 days. [place] 10-325 mg oral tablet 05/03/2015 06/02/2015 take [...] 2 times per day for 7 days Discontinued Name Start Date [...] planned time of waking. 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# [id number] Reviewed 11/27/2015 12:00 AM Depo-Medrol 40mg Reviewed [...] and screen Returned 10/29/2011 12:00 AM CYSTOMETROGRAM W/HOME PARAPROFESSIONAL&UP Reviewed 10/29/2011 12:00 AM ELECTRO-UROFLOWMETRY FIRST Reviewed 10/29/2011 12:00 AM INTRAABDOMINAL PRESSURE TEST Reviewed 11/12/2011 12:00 AM X-RAY URETHRA/BLADDER Reviewed 11/12/2011 12:00 AM X-RAY EXAM SI JOINTS 3/> VWS Reviewed 01/28/2012 12:00 AM MRI LUMBAR SPINE W/O DYE Returned 04/20/2012 12:00 AM THER/PROPH/DIAG INJ SC/IM Reviewed 04/20/2012 12:00 AM Depo-Medrol, Per [address] [facility]#[id number] Reviewed 07/21/2012 12:00 AM THER/PROPH/DIAG INJ SC/IM Reviewed 07/21/2012 12:00 AM Depo-Medrol, Per [address] [facility]#[id number] Reviewed 09/01/2012 12:00 AM Drug Screen (Non-Medicare) Reviewed 09/01/2012 12:00 AM DRAIN/INJ JOINT/BURSA W/O US Reviewed 09/01/2012 12:00 AM Kenalog, Per [address] [facility]#[id number] Reviewed 11/02/2012 12:00 AM Norflex, Up to 60 Mg ND#28063-850-69 Reviewed 11/02/2012 12:00 AM INJ TRIGGER POINT 1/2 MUSCL Reviewed 11/02/2012 12:00 AM Bupivicaine, 30 ml ND#2863-6365-54 Reviewed 11/02/2012 12:00 AM THER/PROPH/DIAG INJ SC/IM Reviewed 11/02/2012 12:00 AM Norflex, Up to [address] [facility]#[id number] Reviewed 12/27/2012 12:00 AM COMPLETE CBC W/AUTO DIFF WBC Returned 12/27/2012 12:00 AM COMPREHEN METABOLIC PANEL Returned 12/27/2012 12:00 AM ASSAY THYROID STIM HORMONE Returned 12/27/2012 12:00 AM VITAMIN B-12 Returned 12/27/2012 12:00 AM ASSAY OF FERRITIN Returned 12/27/2012 12:00 AM ANTINUCLEAR ANTIBODIES Reviewed 12/27/2012 12:00 AM DNA ANTIBODY TE-MOAK Reviewed 12/27/2012 12:00 AM NUCLEAR ANTIGEN ANTIBODY [...] 05/31/2013 12:00 AM Decadron, Per [address] [facility]# [id number] Reviewed 05/31/2013 12:00 AM Depo-Medrol, Per [address] [facility]#[id number] Reviewed 05/31/2013 12:00 AM THER/PROPH/DIAG INJ SC/IM Reviewed 06/06/2013 12:00 AM MUSCLE TEST 2 LIMBS Reviewed 06/06/2013 12:00 AM Nerve conduction studies with F-wave Reviewed 08/26/2013 12:00 AM MAMMOGRAM SCREENING Returned 08/26/2013 12:00 AM MAMMOGRAM SCREENING Reviewed 08/30/2013 12:00 AM THER/PROPH/DIAG INJ SC/IM Reviewed 08/30/2013 12:00 AM Decadron, Per [address] [facility]# [id number] Reviewed 08/30/2013 12:00 AM Depo-Medrol, Per [address] [facility]#[id number] Reviewed 11/17/2013 12:00 AM THER/PROPH/DIAG INJ SC/IM Reviewed 11/17/2013 12:00 AM Decadron, Per [address] [facility]# [id number] Reviewed 11/17/2013 12:00 AM Depo-Medrol 40mg Reviewed 01/06/2014 12:00 AM THER/PROPH/DIAG INJ SC/IM Reviewed 01/06/2014 12:00 AM Decadron, Per [address] [facility]# [id number] Reviewed 01/06/2014 12:00 AM Rocephin [address] [facility]#[id number] Reviewed 01/10/2014 12:00 AM OFFICE/OUTPATIENT VISIT EST [...] 10/12/2014 12:00 AM Decadron, Per [address] [facility]# [id number] Reviewed 10/12/2014 12:00 AM Depo-Medrol 40mg Reviewed [...] IndexHSV 2 IgG, Type Spec <0.91 Index History Of Immunizations Name Date Admin Mfg Name Mfg Code Trade Name Lot# Route Inj Vis Given Vis Pub CVX Influenza 03/02/2013 sanofi pasteur PMC Fluzone [id number] Intramuscular Left Deltoid 03/02/2013 12/17/2012 141 X 02/28/2014 Merck & Co., Inc. MSD Pneumovax 23 [id number] Intramuscular Left Deltoid 02/28/2014 02/27/2009 33 Influenza 03/23/2015 [facility] Fluzone Quadrivalent [id number] Intramuscular Right Deltoid 03/23/2015 12/29/2014 140 History [...] Jun 24 2011 5:18PM Low Back Pain b 2011 9:38AM Osteoarthrosis b 2011 9:38AM Abdominal Pain b 2011 9:38AM Diverticulosis Of Colon b 2011 [...] SI joint pain Sep 01 2012 3:06PM [facility] medication use Sep 01 2012 4:05PM Wrist [...] Insomnia, unspecified type Jan 14 2016 11:33AM Payers Insurance Name Company Name Plan Name Plan Number Policy Number Policy Group Number Start Date [employer] [place] [id number] N/A Res Care [employer]Care [id number] N/A [employer] [id number] N/A [employer] [place] [id number] Saturday, 2011 [employer] [place] [id number] N/A [employer] [place] [id number] Thursday, 2013 R UMR [id number] N/A [employer]ums [id number] N/A History of Encounters Visit Date Visit Type Provider 01/14/2016 Office visit Chelsea Rodríguez APRN 01/09/2016 Office visit Leonardo Cowan APRN 01/04/2016 Office visit Leonardo Cowan APRN 11/27/2015 Office visit Chelsea Rodríguez APRN 08/23/2015 Office visit Chelsea Rodríguez APRN 07/19/2015 Office visit 07/19/2015 Office visit Chelsea Rodríguez APRN 06/21/2015 Office visit Chelsea Rodríguez APRN 05/03/2015 Nurse visit Adela PORTER 04/12/2015 Office visit Adela PORTER 03/23/2015 Office visit Chelsea Rodríguez APRN 03/08/2015 Office visit Adela PORTER 02/14/2015 Office visit Leonardo Cowan APRN 02/08/2015 Office visit Adela PORTER 02/07/2015 Office visit Leonardo Cowan APRN 01/11/2015 Office visit Adela PORTER 12/28/2014 Office visit Chelsea Rodríguez APRN 12/14/2014 Nurse visit Adela PORTER 11/23/2014 Nurse visit Adela PORTER 10/26/2014 Office visit Adela PORTER 10/12/2014 Office visit 10/12/2014 Office visit Chelsea Rodríguez APRN 10/05/2014 Nurse visit Adela PORTER 09/07/2014 Office visit Adela PORTER 08/17/2014 Office visit 08/17/2014 Office visit 08/17/2014 Office visit Chelsea Rodríguez DIRECTOR OF CORPORATE STRATEGY 08/14/2014 Office visit Adela Cole GUNNER'S MATE G 07/27/2014 Office visit Adela Cole GUNNER'S MATE G 2014 Office visit Adela Cole GUNNER'S MATE G 2014 Office visit Mica Lr DIRECTOR OF CORPORATE STRATEGY 06/28/2014 Nurse visit Adela Cole GUNNER'S MATE G 05/31/2014 Office visit Adela Cole GUNNER'S MATE G 05/03/2014 Voided Adela Cole GUNNER'S MATE G 04/26/2014 Office visit Micawillian Lr DIRECTOR OF CORPORATE STRATEGY 04/05/2014 Office visit Adela Cole GUNNER'S MATE G 03/10/2014 Office visit Adela Cole GUNNER'S MATE G 02/28/2014 Office visit Mica Lr DIRECTOR OF CORPORATE STRATEGY 02/24/2014 Office visit Adela Cole GUNNER'S MATE G 02/06/2014 Office visit Adela Cole GUNNER'S MATE G 01/10/2014 Nurse visit Suzan Liang MD 01/06/2014 Office visit Mica Lr DIRECTOR OF CORPORATE STRATEGY 12/15/2013 Office visit Adela Cole GUNNER'S MATE G 11/17/2013 Office visit Chelsea Rodríguez DIRECTOR OF CORPORATE STRATEGY 11/17/2013 Office visit Adela Cole GUNNER'S MATE G 10/20/2013 Office visit Adela Cole GUNNER'S MATE G 09/22/2013 Office visit Adela Cole GUNNER'S MATE G 08/30/2013 Office visit Chelsea Rodríguez DIRECTOR OF CORPORATE STRATEGY 08/26/2013 Office visit Beti Reyna DIRECTOR OF CORPORATE STRATEGY 07/29/2013 Office visit Adela Cole GUNNER'S MATE G 07/06/2013 Procedures Elmira Campbell MD 07/01/2013 Office visit Adela Cole GUNNER'S MATE G 06/06/2013 Office visit Adela Cole GUNNER'S MATE G 05/31/2013 Office visit Chelsea Rodríguez DIRECTOR OF CORPORATE STRATEGY 05/11/2013 Office visit Adela Cole GUNNER'S MATE G 03/22/2013 Office visit Adela Cole GUNNER'S MATE G 03/10/2013 Office visit Adela PITTMANP 03/04/2013 Office visit Adela PITTMANP 03/02/2013 Office visit Odette Elam MD 02/22/2013 Office visit Adela PITTMANP 01/28/2013 Office visit Chelsea Rodríguez DIRECTOR OF CORPORATE STRATEGY 01/25/2013 Office visit Adela Cole GUNNER'S MATE G 12/27/2012 Office visit Adela JohnsonMarcus Cole GUNNER'S MATE G 12/07/2012 [facility] Pablo Croft MD 11/24/2012 Office visit Pablo Croft MD 11/02/2012 Office visit Kylah Wright DIRECTOR OF CORPORATE STRATEGY 11/02/2012 Office visit Mica Lr DIRECTOR OF CORPORATE STRATEGY 10/05/2012 [facility] Pablo Croft MD 09/30/2012 Office visit Kylah Wright DIRECTOR OF CORPORATE STRATEGY 09/01/2012 Office visit Kylah Wright DIRECTOR OF CORPORATE STRATEGY 07/21/2012 Office visit Odette Elam MD 06/16/2012 Office visit Pablo Croft MD 05/11/2012 [facility] Pablo Croft MD 04/28/2012 Office visit Pablo Croft MD 04/20/2012 Office visit Odette Elam MD 03/29/2012 Office visit Pablo Croft MD 03/16/2012 [facility] Pablo Croft MD 03/09/2012 [facility] Pablo Croft MD 02/24/2012 [facility] Pablo Croft MD 02/11/2012 Office visit Pablo Croft MD 01/28/2012 Office visit Pablo Croft MD 01/19/2012 Office visit Odette Elam MD 12/03/2011 Office visit Reji Bowens MD 11/12/2011 Office visit Alison Antoine DIRECTOR OF CORPORATE STRATEGY 10/28/2011 Procedures Reji Bowens MD 10/07/2011 Office visit Odette Elam MD 09/04/2011 Surgery Reji Bowens MD 08/15/2011 Surgery Reji Bowens MD 07/22/2011 [facility] Naveen Aguilar MD 07/22/2011 [facility] Reji Bowens MD 07/14/2011 Surgery Reji Bowens MD 06/26/2011 Office visit Odette Elam MD 06/24/2011 Office visit Reji Bowens MD 12/04/2010 [facility] Asha Church MD
--- OUTSIDE RECORDS SUMMARY | 2018-02-14 10:48 | XMS REPORT ---
Author Author Chelsea Rodríguez Organization [facility] Address [address] [place], [place] [id number] Care Team Providers Care Obiee Architect Name Role Phone Chelsea Rodríguez PCP Chelsea [...] BY MOUTH ONCE EVERY NIGHT AT BEDTIME Flonase Allergy Relief 50 mcg/actuation nasal spray,suspension 11/20/2016 inhale 1 spray (50 mcg) in each nostril by intranasal route once daily 28-800 mg-mcg oral tablet take 1 tablet by oral route daily alprazolam 0.5 mg oral tablet 05/22/2017 08/20/2017 take 1 tablet by oral route Q6 PRN for 30 days bupropion HCl 75 mg oral tablet 05/22/2017 take 2 tablets by oral route 2 times a day meloxicam 15 mg oral tablet 05/22/2017 TAKE 1 TABLET BY MOUTH ONCE DAILY baclofen 10 mg oral tablet 05/26/2017 take 1 tablet by oral route daily Ambien 10 mg oral tablet 06/04/2017 07/04/2017 take 1 tablet (10 mg) by oral route once daily at bedtime for 30 days Name Start Date Expiration [...] route every 6 hours for 30 days [facility] 30-Day Starter Pack 300 mg (9)- 600 [...] then Take 1 tab x 2 days. [place] 10-325 mg oral tablet 05/03/2015 06/02/2015 take [...] planned time of waking. 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 [...] 11/27/2015 12:00 AM Decadron, Per 1 Mg [facility]# [address]-62 Reviewed 11/27/2015 12:00 AM Depo-Medrol 40mg Reviewed [...] Reviewed 04/24/2016 12:00 AM Toradol 60 Mg [facility]#5858-4524-37 Reviewed 06/11/2016 12:00 AM Consult/Referral Reviewed 06/11/2016 2:41 PM URINALYSIS AUTO W/O SCOPE Reviewed 06/11/2016 12:00 AM URINE CULTURE/COLONY COUNT Reviewed 06/13/2016 12:00 AM Splint, prefabricated, wrist or ankle Reviewed 07/31/2016 12:00 AM LIPID PANEL Reviewed 07/31/2016 12:00 AM MAMMOGRAPHY SCREENING, DIGITAL Reviewed 10/29/2011 12:00 AM CYSTOMETROGRAM W/NUT SIFTER&UP Reviewed 10/29/2011 12:00 AM ELECTRO-UROFLOWMETRY FIRST Reviewed [...] 04/20/2012 12:00 AM Depo-Medrol, Per 120 Mg [facility]#1309-5639-78 Reviewed 07/21/2012 12:00 AM THER/PROPH/DIAG INJ SC/IM Reviewed 07/21/2012 12:00 AM Depo-Medrol, Per 120 Mg [facility]#7914-8574-04 Reviewed 09/01/2012 12:00 AM Drug Screen (Non-Medicare) Reviewed 09/01/2012 12:00 AM DRAIN/INJ JOINT/BURSA W/O US Reviewed 09/01/2012 12:00 AM Kenalog, Per 10 Mg [facility]#2572-2213-55 Reviewed 11/02/2012 12:00 AM Norflex, Up to 60 Mg [facility]#06687-491-21 Reviewed 11/02/2012 12:00 AM INJ TRIGGER POINT 1/2 MUSCL Reviewed 11/02/2012 12:00 AM Bupivicaine, 30 ml [facility]#7276-0919-92 Reviewed 11/02/2012 12:00 AM THER/PROPH/DIAG INJ SC/IM Reviewed 11/02/2012 12:00 AM Norflex, Up to 60 Mg [facility]#44088-823-37 Reviewed 12/27/2012 12:00 AM COMPLETE CBC W/AUTO DIFF WBC Reviewed 12/27/2012 12:00 AM COMPREHEN METABOLIC PANEL Reviewed 12/27/2012 12:00 AM ASSAY THYROID STIM HORMONE Reviewed 12/27/2012 12:00 AM VITAMIN B-12 Reviewed 12/27/2012 12:00 AM ASSAY OF FERRITIN Reviewed 12/27/2012 12:00 AM ANTINUCLEAR ANTIBODIES Reviewed 12/27/2012 12:00 AM DNA ANTIBODY [place] Reviewed 12/27/2012 12:00 AM NUCLEAR ANTIGEN ANTIBODY [...] 05/31/2013 12:00 AM Decadron, Per 1 Mg [facility]# [address]-02 Reviewed 05/31/2013 12:00 AM Depo-Medrol, Per 80 Mg [facility]#9877-4628-10 Reviewed 05/31/2013 12:00 AM THER/PROPH/DIAG INJ SC/IM Reviewed 06/06/2013 12:00 AM MUSCLE TEST 2 LIMBS Reviewed 06/06/2013 12:00 AM Nerve conduction studies with F-wave Reviewed 08/26/2013 12:00 AM MAMMOGRAM SCREENING Reviewed 08/26/2013 12:00 AM MAMMOGRAM SCREENING Reviewed 08/30/2013 12:00 AM THER/PROPH/DIAG INJ SC/IM Reviewed 08/30/2013 12:00 AM Decadron, Per 1 Mg [place]# [address]-52 Reviewed 08/30/2013 12:00 AM Depo-Medrol, Per 80 Mg [facility]#5281-9906-80 Reviewed 11/17/2013 12:00 AM THER/PROPH/DIAG INJ SC/IM Reviewed 11/17/2013 12:00 AM Decadron, Per 1 Mg [facility]# [address]-33 Reviewed 11/17/2013 12:00 AM Depo-Medrol 40mg Reviewed 01/06/2014 12:00 AM THER/PROPH/DIAG INJ SC/IM Reviewed 01/06/2014 12:00 AM Decadron, Per 1 Mg [facility]# [address]-12 Reviewed 01/06/2014 12:00 AM Rocephin 1 gram [facility]#4149-6195-41 Reviewed 01/10/2014 12:00 AM OFFICE/OUTPATIENT VISIT EST [...] 10/12/2014 12:00 AM Decadron, Per 1 Mg [facility]# [address]-31 Reviewed 10/12/2014 12:00 AM Depo-Medrol 40mg Reviewed 11/23/2014 12:00 AM OFFICE/OUTPATIENT VISIT EST Reviewed 12/14/2014 12:00 AM OFFICE/OUTPATIENT VISIT EST Reviewed Results Summary Date and Description Results 06/23/2011 2:25 PM FSH 7.70 mIU/mLTSH 0.890 uIU/mL 07/14/2011 12:10 PM WBC 11.2 RBC 4.78 [...] dLTOT CHOL/HDL 3.6 LDL (CALC) 96.0 mg/dL History Of Immunizations Name Date Admin Mfg Name Mfg Code Trade Name Lot# Route Inj Vis Given Vis Pub CVX Influenza 03/02/2013 sanofi pasteur PMC Fluzone [id number] Intramuscular Left Deltoid 03/02/2013 12/17/2012 141 X 02/28/2014 Merck & Co[employer] Inc. MSD Pneumovax 23 [id number] Intramuscular Left Deltoid 02/28/2014 02/27/2009 33 Influenza 03/23/2015 sanofi pasteur PMC Fluzone Quadrivalent [id number] Intramuscular Right Deltoid 03/23/2015 12/29/2014 140 Influenza 03/04/2016 sanofi pasteur PMC Fluzone Quadrivalent UI [id number] [id number] Intramuscular Left Deltoid 03/04/2016 12/29/2014 141 Tdap 02/20/2017 [employer] SKB BOOSTRIX [id number] Intramuscular Right Arm 02/20/2017 07/18/2014 115 Influenza 02/20/2017 [facility] Fluzone Quadrivalent [id number] Intramuscular Left Arm 02/20/2017 12/29/2014 150 History of Past Illness Name Date of Onset Comments Anxiety Arthritis unspecified Diverticulitis Of Colon Sacroiliitis Abnormal uterine bleeding 06/26/2011 Endometrial hyperplasia, unspecified 06/26/2011 Pelvic Pain [...] Low Back Pain Feb 2011 9:38AM Osteoarthrosis Feb 2011 9:38AM Abdominal Pain Feb 2011 9:38AM Diverticulosis Of Colon b 2011 9:38AM Pelvic Pain b 2011 11:14AM Menorrhagia b 2011 11:14AM Metrorrhagia b 2011 11:14AM Family History Of Breast Cancer [...] joint pain Sep 2011 9:12AM Radiculopathy, lumbosacral Feb 11 2012 3:58PM [...] SI joint pain Sep 01 2012 3:06PM senior living medication use Sep 01 2012 4:05PM Wrist [...] Dec 27 2012 2:08PM Radiculopathy, lumbosacral Sep 2012 3:35PM SI joint pain Jan 25 [...] ischemic heart disease Jun 18 2017 12:38PM Payers Insurance Name Company Name Plan Name Plan Number Policy Number Policy Group Number Start Date [employer] [place] [id number] N/A [employer] [place] [id number] Saturday, 2011 [employer] [place] [id number] N/A [employer] [place] [id number] Thursday, 2013 UMR UMR [id number] N/A [employer] [id number] N/A [employer] [place] [id number] N/A Res Care [employer] [id number] N/A [employer] [id number] N/A [employer] [id number] DOI [id number] May [employer] [place] [id number] N/A History of Encounters Visit Date Visit Type Provider 05/22/2017 Office visit Chelsea Rodríguez APRN 02/20/2017 Office visit Chelsea Rodríguez DEMONSTRATOR SEWING TECHNIQUES 02/10/2017 Office visit Jeremy West DO 01/31/2017 Office visit Dimitri Beebe NP 11/20/2016 Office visit Chelsea Rodríguez DEMONSTRATOR SEWING TECHNIQUES 08/29/2016 Office visit Chelsea Rodríguez DEMONSTRATOR SEWING TECHNIQUES 07/31/2016 Office visit Chelsea Rodríguez DEMONSTRATOR SEWING TECHNIQUES 06/11/2016 Office visit Chelsea Rodríguez DEMONSTRATOR SEWING TECHNIQUES 06/05/2016 Office visit Leonardo Cowan DEMONSTRATOR SEWING TECHNIQUES 05/14/2016 Office visit Chelsea Rodríguez DEMONSTRATOR SEWING TECHNIQUES 05/05/2016 Office visit Leonardo Cowan DEMONSTRATOR SEWING TECHNIQUES 04/24/2016 Office visit Chelsea Rodríguez DEMONSTRATOR SEWING TECHNIQUES 04/07/2016 Office visit Chelsea Rodríguez DEMONSTRATOR SEWING TECHNIQUES 03/04/2016 Office visit Chelsea Rodríguez DEMONSTRATOR SEWING TECHNIQUES 01/14/2016 Office visit Chelsea Rodríguez DEMONSTRATOR SEWING TECHNIQUES 01/09/2016 Office visit Leonardo Cowan DEMONSTRATOR SEWING TECHNIQUES 01/04/2016 Office visit Leonardo Cowan DEMONSTRATOR SEWING TECHNIQUES 11/27/2015 Office visit Chelsea Rodríguez DEMONSTRATOR SEWING TECHNIQUES 08/23/2015 Office visit Chelsea Rodríguez DEMONSTRATOR SEWING TECHNIQUES 07/19/2015 Office visit 07/19/2015 Office visit Chelsea Rodríguez DEMONSTRATOR SEWING TECHNIQUES 06/21/2015 Office visit Chelsea Rodríguez DEMONSTRATOR SEWING TECHNIQUES 05/03/2015 Nurse visit Adela Cole SECURITIES TELLER 04/12/2015 Office visit Adela Cole SECURITIES TELLER 03/23/2015 Office visit Chelsea Rodríguez DEMONSTRATOR SEWING TECHNIQUES 03/08/2015 Office visit Adela Cole SECURITIES TELLER 02/14/2015 Office visit Leonardo Pazran DEMONSTRATOR SEWING TECHNIQUES 02/08/2015 Office visit Adela PITTMANP 02/07/2015 Office visit Leonardo Cowan DEMONSTRATOR SEWING TECHNIQUES 01/11/2015 Office visit Adela PITTMANP 12/28/2014 Office visit Chelsea Rodríguez DEMONSTRATOR SEWING TECHNIQUES 12/14/2014 Nurse visit Adela PITTMANP 11/23/2014 Nurse visit Adela PITTMANP 10/26/2014 Office visit Adela PITTMANP 10/12/2014 Office visit 10/12/2014 Office visit Chelsea Rodríguez DEMONSTRATOR SEWING TECHNIQUES 10/05/2014 Nurse visit Adela PITTMANP 09/07/2014 Office visit Adela PITTMANP 08/17/2014 Office visit 08/17/2014 Office visit 08/17/2014 Office visit Chelsea Rodríguez DEMONSTRATOR SEWING TECHNIQUES 08/14/2014 Office visit Adela PITTMANP 07/27/2014 Office visit Adela PITTMANP 2014 Office visit Adela PITTMANP 2014 Office visit Mica Lr DEMONSTRATOR SEWING TECHNIQUES 06/28/2014 Nurse visit Adela PITTMANP 05/31/2014 Office visit Adela PITTMANP 05/03/2014 Voided Adela PITTMANP 04/26/2014 Office visit Mica Lr DEMONSTRATOR SEWING TECHNIQUES 04/05/2014 Office visit Adela PITTMANP 03/10/2014 Office visit Adela PITTMANP 02/28/2014 Office visit Mica Lr DEMONSTRATOR SEWING TECHNIQUES 02/24/2014 Office visit Adela PITTMANP 02/06/2014 Office visit Adela PITTMANP 01/10/2014 Nurse visit Suzan Liang MD 01/06/2014 Office visit Mica Lr DEMONSTRATOR SEWING TECHNIQUES 12/15/2013 Office visit Adela Cole SECURITIES TELLER 11/17/2013 Office visit Chelsea Marcos DEMONSTRATOR SEWING TECHNIQUES 11/17/2013 Office visit Adela Cole SECURITIES TELLER 10/20/2013 Office visit Adela Cole SECURITIES TELLER 09/22/2013 Office visit Adela Cole SECURITIES TELLER 08/30/2013 Office visit Chelsea Marcos DEMONSTRATOR SEWING TECHNIQUES 08/26/2013 Office visit Beti Reyna DEMONSTRATOR SEWING TECHNIQUES 07/29/2013 Office visit Adela Cole SECURITIES TELLER 07/06/2013 [facility] Elmira Campbell MD 07/01/2013 Office visit Adela Cole SECURITIES TELLER 06/06/2013 Office visit Adela Cole SECURITIES TELLER 05/31/2013 Office visit Chelsea Rodríguez DEMONSTRATOR SEWING TECHNIQUES 05/11/2013 Office visit Adela Cole SECURITIES TELLER 03/22/2013 Office visit Adela Cole SECURITIES TELLER 03/10/2013 Office visit Adela Cole SECURITIES TELLER 03/04/2013 Office visit Adela PITTMANP 03/02/2013 Office visit Odette Elam MD 02/22/2013 Office visit Adela PITTMANP 01/28/2013 Office visit Chelsea Rodríguez DEMONSTRATOR SEWING TECHNIQUES 01/25/2013 Office visit Adela PITTMANP 12/27/2012 Office visit Adela PITTMANP 12/07/2012 [facility] Pablo Croft MD 11/24/2012 Office visit Pablo Croft MD 11/02/2012 Office visit Kylah Wright DEMONSTRATOR SEWING TECHNIQUES 11/02/2012 Office visit Mica Lr DEMONSTRATOR SEWING TECHNIQUES 10/05/2012 [facility] Pablo Croft MD 09/30/2012 Office visit Kylah Wright DEMONSTRATOR SEWING TECHNIQUES 09/01/2012 Office visit Kylah Wright DEMONSTRATOR SEWING TECHNIQUES 07/21/2012 Office visit Odette Elam MD 06/16/2012 Office visit Pablo Croft MD 05/11/2012 [facility] Pablo Croft MD 04/28/2012 Office visit Pablo Croft MD 04/20/2012 Office visit Odette Elam MD 03/29/2012 Office visit Pablo Croft MD 03/16/2012 [facility] Pablo Croft MD 03/09/2012 [facility] Pablo Croft MD 02/24/2012 [facility] Pablo Croft MD 02/11/2012 Office visit Pablo Croft MD 01/28/2012 Office visit Pablo Croft MD 01/19/2012 Office visit Odette Elam MD 12/03/2011 Office visit Reji Bowens MD 11/12/2011 Office visit Alison Antoine APRN 10/28/2011 Procedures Reji Bowens MD 10/07/2011 Office visit Odette Elam MD 09/04/2011 Surgery Reji Bowens MD 08/15/2011 Surgery Reji Bowens MD 07/22/2011 [facility] Naveen Aguilar MD 07/22/2011 [facility] Reji Bowens MD 07/14/2011 Surgery Reji Bowens MD 06/26/2011 Office visit dOette Elam MD 06/24/2011 Office visit Reji Bowens MD 12/04/2010 [facility] Asha Church MD
--- OUTSIDE RECORDS SUMMARY | 2018-02-14 10:50 | XMS REPORT ---
Author Author Adela Cole [facility] Address [address] [place], [place] [address] Care Team Providers Care Elevator Attendant Name Role Phone Adela Cole PCP Allergies and Adverse Reactions Name Reaction Notes Keflex yeast infection does not want to take due to causes yeast infection Plan of Treatment Planned Activity Comments Planned Date Planned Time Plan/Goal METABOLIC PANEL TOTAL CA 10/12/2014 12:00 AM Medications Active Name Start Date Estimated Completion Date SIG Comments meloxicam 15 mg oral tablet 12/28/2014 take 1 tablet (15 mg) by oral route once daily for 30 days alprazolam 0.5 mg oral tablet 03/29/2015 06/27/2015 take 1 tablet by oral route every 6 hours for 30 days Cymbalta 30 mg oral capsule,delayed release(DR/EC) 03/23/2015 09/19/2015 take 1 capsule (30 mg) by oral route once daily for 30 days amitriptyline 75 mg oral tablet 04/12/2015 08/10/2015 take 1 tablet (75 mg) by oral route once daily at bedtime for 30 days [place] 10-325 mg oral tablet 05/03/2015 06/02/2015 take 1 tablet by oral route every 6 hours as needed for 30 days Name Start Date Expiration [...] then Take 1 tab x 2 days. 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 Procedures Date Ordered Description Order Status 03/23/2015 12:00 AM FLU VACC 4 ROB 3 YRS PLUS IM Reviewed 03/23/2015 12:00 AM THER/PROPH/DIAG INJ SC/IM Reviewed 04/12/2015 12:00 AM INJECT SPINE LUMBAR/SACRAL Returned 06/24/2011 12:00 AM ASSAY THYROID STIM [...] and screen Returned 10/29/2011 12:00 AM CYSTOMETROGRAM W/TILE MOLDER&UP Reviewed 10/29/2011 12:00 AM ELECTRO-UROFLOWMETRY FIRST Reviewed 10/29/2011 12:00 AM INTRAABDOMINAL PRESSURE TEST Reviewed 11/12/2011 12:00 AM X-RAY URETHRA/BLADDER Reviewed 11/12/2011 12:00 AM X-RAY EXAM SI JOINTS 3/> VWS Reviewed 01/28/2012 12:00 AM MRI LUMBAR SPINE W/O DYE Returned 04/20/2012 12:00 AM THER/PROPH/DIAG INJ SC/IM Reviewed 04/20/2012 12:00 AM Depo-Medrol, Per 120 Mg [facility]#6683-8281-14 Reviewed 07/21/2012 12:00 AM THER/PROPH/DIAG INJ SC/IM Reviewed 07/21/2012 12:00 AM Depo-Medrol, Per 120 Mg [facility]#2145-6445-96 Reviewed 09/01/2012 12:00 AM Drug Screen (Non-Medicare) Reviewed 09/01/2012 12:00 AM Kenalog, Per 10 Mg [facility]#2122-7041-06 Reviewed 11/02/2012 12:00 AM Norflex, Up to 60 Mg [facility]#07384-981-32 Reviewed 11/02/2012 12:00 AM INJ TRIGGER POINT 1/2 MUSCL Reviewed 11/02/2012 12:00 AM Bupivicaine, 30 ml [facility]#9503-1641-14 Reviewed 11/02/2012 12:00 AM THER/PROPH/DIAG INJ SC/IM Reviewed 11/02/2012 12:00 AM Norflex, Up to 60 Mg [facility]#55838-735-41 Reviewed 12/27/2012 12:00 AM COMPLETE CBC W/AUTO DIFF WBC Returned 12/27/2012 12:00 AM COMPREHEN METABOLIC PANEL Returned 12/27/2012 12:00 AM ASSAY THYROID STIM HORMONE Returned 12/27/2012 12:00 AM VITAMIN B-12 Returned 12/27/2012 12:00 AM ASSAY OF FERRITIN Returned 12/27/2012 12:00 AM ANTINUCLEAR ANTIBODIES Reviewed 12/27/2012 12:00 AM DNA ANTIBODY [place] Reviewed 12/27/2012 12:00 AM NUCLEAR ANTIGEN ANTIBODY [...] 05/31/2013 12:00 AM Decadron, Per 1 Mg [facility]# [address]-93 Reviewed 05/31/2013 12:00 AM Depo-Medrol, Per 80 Mg [facility]#9527-0130-88 Reviewed 05/31/2013 12:00 AM THER/PROPH/DIAG INJ SC/IM Reviewed 06/06/2013 12:00 AM MUSCLE TEST 2 LIMBS Reviewed 06/06/2013 12:00 AM Nerve conduction studies with F-wave Reviewed 08/26/2013 12:00 AM MAMMOGRAM SCREENING Returned 08/26/2013 12:00 AM MAMMOGRAM SCREENING Reviewed 08/30/2013 12:00 AM THER/PROPH/DIAG INJ SC/IM Reviewed 08/30/2013 12:00 AM Decadron, Per 1 Mg [facility]# [address]-43 Reviewed 08/30/2013 12:00 AM Depo-Medrol, Per 80 Mg [facility]#1621-8187-58 Reviewed 11/17/2013 12:00 AM THER/PROPH/DIAG INJ SC/IM Reviewed 11/17/2013 12:00 AM Decadron, Per 1 Mg [facility]# [address]-76 Reviewed 11/17/2013 12:00 AM Depo-Medrol 40mg Reviewed 01/06/2014 12:00 AM THER/PROPH/DIAG INJ SC/IM Reviewed 01/06/2014 12:00 AM Decadron, Per 1 Mg [facility]# [address]-06 Reviewed 01/06/2014 12:00 AM Rocephin 1 gram [facility]#1278-1808-00 Reviewed 01/10/2014 12:00 AM OFFICE/OUTPATIENT VISIT EST [...] 10/12/2014 12:00 AM Decadron, Per 1 Mg [facility]# [address]-14 Reviewed 10/12/2014 12:00 AM Depo-Medrol 40mg Reviewed [...] 1.20 mg/dLCALCIUM 10.10 mg/dLeGFR >60 mL/min/1.73 m2 History Of Immunizations Name Date Admin Mfg Name Mfg Code Trade Name Lot# Route Inj Vis Given Vis Pub CVX Influenza 03/02/2013 sanofi pasteur PMC Fluzone [id number] Intramuscular Left Deltoid 03/02/2013 12/17/2012 141 Pneumococcal 02/28/2014 [employer] MSD Pneumovax 23 [id number] Intramuscular Left Deltoid 02/28/2014 02/27/2009 33 Influenza 03/23/2015 sanofi pasteur PMC Fluzone Quadrivalent [id number] Intramuscular Right Deltoid 03/23/2015 12/29/2014 140 History [...] SI joint pain Sep 01 2012 3:06PM long term medication use Sep 01 2012 4:05PM Wrist [...] joint pain Sep 3 2012 3:35PM Neuralgia Sep 3 2012 3:35PM Anxiety Disorder Sep 6 2012 8:51AM Radiculopathy, lumbosacral Feb 22 [...] 8:55AM Lumbar radiculopathy Apr 12 2015 3:17PM Payers Insurance Name Company Name Plan Name Plan Number Policy Number Policy Group Number Start Date [facility] UMR [id number] N/A [facility] [employer] [facility] [id number] N/A [employer] [place] [id number] Saturday, 2011 [employer] [place] [id number] N/A [employer] [place] [id number] Thursday, 2013 History of Encounters Visit Date Visit Type Provider 04/12/2015 Office visit Adela PITTMANP 03/23/2015 Office visit Chelsea Rodríguez CRUISE COUNSELOR 03/08/2015 Office visit Adela PITTMANP 02/14/2015 Office visit Leonardo Cowan CRUISE COUNSELOR 02/08/2015 Office visit Adela M. Douglas PITTMANP 02/07/2015 Office visit Leonardo Cowan CRUISE COUNSELOR 01/11/2015 Office visit Adela Cole CLINICAL BUSINESS MANAGER 12/28/2014 Office visit Chelsea Rodríguez CRUISE COUNSELOR 12/14/2014 Nurse visit Adela Cole CLINICAL BUSINESS MANAGER 11/23/2014 Nurse visit Adela Cole CLINICAL BUSINESS MANAGER 10/26/2014 Office visit Adela Cole CLINICAL BUSINESS MANAGER 10/12/2014 Office visit Chelsea Rodríguez CRUISE COUNSELOR 10/05/2014 Nurse visit Adela PITTMANP 09/07/2014 Office visit Adela PITTMANP 08/17/2014 Office visit Chelsea Rodríguez CRUISE COUNSELOR 08/14/2014 Office visit Adela PITTMANP 07/27/2014 Office visit Adela PITTMANP 2014 Office visit Adela PITTMANP 2014 Office visit Mica Lr CRUISE COUNSELOR 06/28/2014 Nurse visit Adela PITTMANP 05/31/2014 Office visit Adela PITTMANP 05/03/2014 Voided Adela PITTMANP 04/26/2014 Office visit Mica Lr CRUISE COUNSELOR 04/05/2014 Office visit Adela PITTMANP 03/10/2014 Office visit Adela PITTMANP 02/28/2014 Office visit Mica Lr CRUISE COUNSELOR 02/24/2014 Office visit Adela PITTMANP 02/06/2014 Office visit Adela PITTMANP 01/10/2014 Nurse visit Suzan Liang MD 01/06/2014 Office visit Mica Lr CRUISE COUNSELOR 12/15/2013 Office visit Adela PITTMANP 11/17/2013 Office visit Chelsea Rodríguez CRUISE COUNSELOR 11/17/2013 Office visit Adela PITTMANP 10/20/2013 Office visit Adela PITTMANP 09/22/2013 Office visit Adela PITTMANP 08/30/2013 Office visit Chelsea Rodríguez CRUISE COUNSELOR 08/26/2013 Office visit Beti Reyna CRUISE COUNSELOR 07/29/2013 Office visit Adela PITTMANP 07/06/2013 Procedures Elmira Campbell MD 07/01/2013 Office visit Adela Cole CLINICAL BUSINESS MANAGER 06/06/2013 Office visit Adela Cole CLINICAL BUSINESS MANAGER 05/31/2013 Office visit Chelsea Rodríguez CRUISE COUNSELOR 05/11/2013 Office visit Adela Cole CLINICAL BUSINESS MANAGER 03/22/2013 Office visit Adela Cole CLINICAL BUSINESS MANAGER 03/10/2013 Office visit Adela Cole CLINICAL BUSINESS MANAGER 03/04/2013 Office visit Adela Cole CLINICAL BUSINESS MANAGER 03/02/2013 Office visit Odette Elam MD 02/22/2013 Office visit Adela Cole CLINICAL BUSINESS MANAGER 01/28/2013 Office visit Chelsea Rodríguez CRUISE COUNSELOR 01/25/2013 Office visit Adela Cole CLINICAL BUSINESS MANAGER 12/27/2012 Office visit Adela Cole CLINICAL BUSINESS MANAGER 12/07/2012 Hospital Pablo Croft MD 11/24/2012 Office visit Pablo Croft MD 11/02/2012 Office visit Kylah Wright CRUISE COUNSELOR 11/02/2012 Office visit Mica Lr CRUISE COUNSELOR 10/05/2012 [facility] Pablo Croft MD 09/30/2012 Office visit Kylah Wright CRUISE COUNSELOR 09/01/2012 Office visit Kylah Wright CRUISE COUNSELOR 07/21/2012 Office visit Odette Elam MD 06/16/2012 Office visit Pablo Croft MD 05/11/2012 [facility] Pablo Croft MD 04/28/2012 Office visit Pablo Croft MD 04/20/2012 Office visit Odette Elam MD 03/29/2012 Office visit Pablo Croft MD 03/16/2012 Hospital Pablo Croft MD 03/09/2012 [facility] Pablo Croft MD 02/24/2012 Hospital Pablo Croft MD 02/11/2012 Office visit Pablo Croft MD 01/28/2012 Office visit Pablo Croft MD 01/19/2012 Office visit Odette Elam MD 12/03/2011 Office visit Reji Bowens MD 11/12/2011 Office visit Alison Antoine CRUISE COUNSELOR 10/28/2011 Procedures Reji Bowens MD 10/07/2011 Office visit Odette Elam MD 09/04/2011 Surgery Reji Bowens MD 08/15/2011 Surgery Reji Bowens MD 07/22/2011 [facility] Naveen Aguilar MD 07/22/2011 [facility] Reji Bowens MD 07/14/2011 Surgery Reji Bowens MD 06/26/2011 Office visit Odette Elam MD 06/24/2011 Office visit Reji Bowens MD 12/04/2010 [facility] Asha Church MD
--- OUTSIDE RECORDS SUMMARY | 2018-02-14 10:53 | XMS REPORT ---
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 Name Role Phone Chelsea Rodríguez PCP Unavailable Chelsea Rodríguez PreferredProvider Unavailable Allergies and Adverse Reactions Name Reaction Notes Keflex yeast infection does not want to take due to causes yeast infection Plan of Treatment Planned Activity Comments Planned Date Planned Time Plan/Goal Treadmill 06/22/2015 12:00 AM EKG (12-lead electrocardiogram) 06/21/2015 12:00 AM Urine Culture, [place] Count 06/11/2016 12:00 AM bilateral foot pain 06/24/2016 1:00 PM Basic metabolic profile 10/12/2014 12:00 AM Medications Active Name Start Date Estimated Completion Date SIG Comments meloxicam 15 mg oral tablet 12/28/2014 take 1 tablet (15 mg) by oral route once daily for 30 days meloxicam 15 mg oral tablet 11/27/2015 TAKE 1 TABLET BY MOUTH ONCE DAILY hydrocodone-acetaminophen 10-325 mg oral tablet gabapentin 100 mg oral capsule Take 1 cap daily at HS meloxicam 15 mg oral tablet 05/30/2016 TAKE 1 TABLET BY MOUTH ONCE DAILY Flonase Allergy Relief 50 mcg/actuation nasal spray,suspension 06/11/2016 inhale 1 spray (50 mcg) in each nostril by intranasal route once daily Effexor XR 37.5 mg oral capsule,extended release 24hr 06/11/2016 take 1 capsule (37.5 mg) by oral route once daily with food cyclobenzaprine 10 mg oral tablet 06/11/2016 07/11/2016 take 1 tablet by oral route once a day (at bedtime) for 30 days Restoril 15 mg oral capsule 06/11/2016 07/11/2016 take 1 capsule (15 mg) by oral route once daily at bedtime as needed for 30 days alprazolam 0.5 mg oral tablet 06/11/2016 07/11/2016 take 1 tablet by oral route every 6 hours for 30 days Post dated not to fill at pharmacy until 06/29/16 Augmentin 875-125 mg oral tablet 06/11/2016 06/18/2016 take 1 tablet by oral route every 12 hours for 7 days Name Start Date Expiration Date SIG [...] then Take 1 tab x 2 days. [place] 10-325 mg oral tablet 05/03/2015 06/02/2015 take [...] of waking. for 30 days to expensive Discontinued Name Start Date Discontinued Date SIG [...] same time each day for 30 days naproxen oral 05/14/2016 Zanaflex 4 mg oral tablet 05/14/2016 Problem List Description Status Onset Anxiety Active Arthritis unspecified Active Diverticulitis Of Colon Active Sacroiliitis Active Pelvic Pain Active 06/26/2011 Family History Of Breast Cancer Active 06/26/2011 Back pain Active Depression and anxiety Active Allergic rhinitis Active 11/17/2013 Depression Active 08/17/2014 Anxiety Active 08/17/2014 Depression Active 03/27/2015 Insomnia, unspecified type Active 08/23/2015 Vital Signs Date Time BP-Sys(mm[Hg] BP-[place](mm[Hg]) HR(bpm) RR(rpm) Temp WT HT HC BMI BSA BMI Percentile O2 Sat(%) 06/11/2016 1:23:00 PM 126 mmHg 72 mmHg 105 bpm 18 rpm 98.5 F 153.125 lbs 68 in 23.28 kg/m2 1.83 m2 98 % 06/05/2016 3:12:00 PM 120 mmHg 70 mmHg 79 bpm 16 rpm 97.8 F 154 lbs 68 in 23.4154 kg/m 1.8307 m 99 % 05/14/2016 9:59:00 AM 106 mmHg 70 mmHg 112 bpm 18 rpm 98.8 F 150.5 lbs 68 in 22.88 kg/m2 1.81 m2 99 % 05/05/2016 9:40:00 AM 120 mmHg 85 mmHg 111 bpm 16 rpm 97.5 F 151 lbs 68 in 22.9592 kg/m 1.8128 m 99 % 04/24/2016 8:19:00 AM 142 mmHg 76 mmHg 89 bpm 18 rpm 98.1 F 153.5 lbs 68.5 in 23.00 kg/m2 1.83 m2 100 % 04/07/2016 9:40:00 AM 114 mmHg 68 mmHg 68 bpm 16 rpm 97.1 F 155.4 lbs 68.25 in 23.4555 kg/m 1.8424 m 98 % 03/04/2016 1:56:00 PM 124 mmHg [...] 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# [address]-96 Reviewed 11/27/2015 12:00 AM Depo-Medrol 40mg Reviewed [...] 03/04/2016 12:00 AM VIRUS INOCULATION TISSUE Returned 04/07/2016 10:59 AM URINALYSIS AUTO W/O SCOPE Reviewed 04/07/2016 12:00 AM URINE CULTURE/COLONY COUNT Returned 04/24/2016 12:00 AM Toradol 60 Mg [facility]#2599-6530-86 Reviewed 06/11/2016 12:00 AM Consult/Referral Reviewed 10/29/2011 12:00 AM CYSTOMETROGRAM W/PAPER PLATE MACHINE TENDER&UP Reviewed 10/29/2011 12:00 AM ELECTRO-UROFLOWMETRY FIRST Reviewed 10/29/2011 12:00 AM INTRAABDOMINAL PRESSURE TEST Reviewed 11/12/2011 12:00 AM X-RAY URETHRA/BLADDER Reviewed 11/12/2011 12:00 AM X-RAY EXAM SI JOINTS 3/> VWS Reviewed 01/28/2012 12:00 AM MRI LUMBAR SPINE W/O DYE Reviewed 04/20/2012 12:00 AM THER/PROPH/DIAG INJ SC/IM Reviewed 04/20/2012 12:00 AM Depo-Medrol, Per 120 Mg [facility]#6207-5258-12 Reviewed 07/21/2012 12:00 AM THER/PROPH/DIAG INJ SC/IM Reviewed 07/21/2012 12:00 AM Depo-Medrol, Per 120 Mg [facility]#2891-7073-13 Reviewed 09/01/2012 12:00 AM Drug Screen (Non-Medicare) Reviewed 09/01/2012 12:00 AM DRAIN/INJ JOINT/BURSA W/O US Reviewed 09/01/2012 12:00 AM Kenalog, Per 10 Mg [facility]#2785-8011-44 Reviewed 11/02/2012 12:00 AM Norflex, Up to 60 Mg [facility]#37480-583-78 Reviewed 11/02/2012 12:00 AM INJ TRIGGER POINT 1/2 MUSCL Reviewed 11/02/2012 12:00 AM Bupivicaine, 30 ml [facility]#4237-1349-01 Reviewed 11/02/2012 12:00 AM THER/PROPH/DIAG INJ SC/IM Reviewed 11/02/2012 12:00 AM Norflex, Up to 60 Mg [facility]#72187-106-28 Reviewed 12/27/2012 12:00 AM COMPLETE CBC W/AUTO DIFF WBC Reviewed 12/27/2012 12:00 AM COMPREHEN METABOLIC PANEL Reviewed 12/27/2012 12:00 AM ASSAY THYROID STIM HORMONE Reviewed 12/27/2012 12:00 AM VITAMIN B-12 Reviewed 12/27/2012 12:00 AM ASSAY OF FERRITIN Reviewed 12/27/2012 12:00 AM ANTINUCLEAR ANTIBODIES Reviewed 12/27/2012 12:00 AM DNA ANTIBODY [place] Reviewed 12/27/2012 12:00 AM NUCLEAR ANTIGEN ANTIBODY [...] 05/31/2013 12:00 AM Decadron, Per 1 Mg [facility]# [address]-68 Reviewed 05/31/2013 12:00 AM Depo-Medrol, Per 80 Mg [place]#3921-5507-87 Reviewed 05/31/2013 12:00 AM THER/PROPH/DIAG INJ SC/IM Reviewed 06/06/2013 12:00 AM MUSCLE TEST 2 LIMBS Reviewed 06/06/2013 12:00 AM Nerve conduction studies with F-wave Reviewed 08/26/2013 12:00 AM MAMMOGRAM SCREENING Reviewed 08/26/2013 12:00 AM MAMMOGRAM SCREENING Reviewed 08/30/2013 12:00 AM THER/PROPH/DIAG INJ SC/IM Reviewed 08/30/2013 12:00 AM Decadron, Per 1 Mg [place]# [address]-17 Reviewed 08/30/2013 12:00 AM Depo-Medrol, Per 80 Mg [facility]#6609-7368-83 Reviewed 11/17/2013 12:00 AM THER/PROPH/DIAG INJ SC/IM Reviewed 11/17/2013 12:00 AM Decadron, Per 1 Mg [place]# [address]-78 Reviewed 11/17/2013 12:00 AM Depo-Medrol 40mg Reviewed 01/06/2014 12:00 AM THER/PROPH/DIAG INJ SC/IM Reviewed 01/06/2014 12:00 AM Decadron, Per 1 Mg [facility]# [address]-06 Reviewed 01/06/2014 12:00 AM Rocephin 1 gram [facility]#5737-1113-90 Reviewed 01/10/2014 12:00 AM OFFICE/OUTPATIENT VISIT EST [...] 10/12/2014 12:00 AM Decadron, Per 1 Mg [facility]# [address]-54 Reviewed 10/12/2014 12:00 AM Depo-Medrol 40mg Reviewed [...] 110 eGFR >60 mL/min/1.73 m2eGFR AA* >60 07/22/2011 8:00 AM TEST UR NEGATIVE 07/22/2011 3:30 PM WBC 13.4 RBC 3.67 HGB 11.30 g/dLHCT 33.80 %MCV 92.0 fLMCH 30.80 pgMCHC 33.40 g/dLRDW SD 43 RDW CV 12.80 %MPV 9.20 fLPLT 203 NRBC# 0.00 NRBC% 0.0 %NEUT 76.70 %%LYMP 15.20 %%MONO 7.60 %%EOS 0.30 %%BASO 0.20 %#NEUT 10.29 #LYMP 2.04 #MONO 1.02 #EOS 0.04 #BASO 0.03 MANUAL DIFF SEE BELOW SEGS 82 BANDS 1 LYMPHS 13 MONOS 4 RBC MORPH NORMAL GLUCOSE 129.0 mg/dLSODIUM 138.0 mmol/ LPOTASSIUM 3.40 mmol/LCHLORIDE 108.0 mmol/LCO2 24.0 mmol/LBUN 6.0 mg/ dLCREATININE 0.60 mg/dLSGOT/AST 14.0 IU/LSGPT/ALT 12.0 IU/LALK PHOS 52.0 IU/ LTOTAL PROTEIN 5.10 g/dLALBUMIN 3.40 g/dLTOTAL BILI 0.50 mg/dLCALCIUM 8.50 mg/ dLAGE 44 GFR NonAA 109 GFR AA 132 eGFR >60 mL/min/1.73 m2eGFR AA* >60 07/23/2011 6:40 AM WBC 7.6 RBC 3.58 HGB 10.90 g/dLHCT 33.60 %MCV 94.0 fLMCH 30.40 pgMCHC 32.40 g/dLRDW SD 45 RDW CV 13.10 %MPV 9.80 fLPLT 199 NRBC# 0.00 NRBC% 0.0 12/30/2012 11:35 AM WBC 6.7 RBC 4.98 [...] 7 EOS 1.0 % 02/28/2014 4:08 PM B. henselae IgG Negative B. henselae IgM Negative B. lopez IgG Negative B. lopez IgM Negative M pneumoniae IgG Abs 389.0 U/mLM pneumoniae IgM Abs <770 U/mLLegionella pneumophilaAbs. <0.91 08/17/2014 11:05 AM WBC 5.8 [...] 25.40 IndexHSV 2 IgG, Type Spec <0.91 IndexHSV 1 IgM Antibodies <1:10 HSV 2 IgM Antibodies <1:10 03/04/2016 2:50 PM WET PREP NO TRICH [...] neg WBC Est Ur Ql Strip large History Of Immunizations Name Date Admin Mfg Name Mfg Code Trade Name Lot# Route Inj Vis Given Vis Pub CVX Influenza 03/02/2013 sanofi pasteur PMC Fluzone [id number] Intramuscular Left Deltoid 03/02/2013 12/17/2012 141 X 02/28/2014 Merck & Co., Inc. MSD Pneumovax 23 [id number] Intramuscular Left Deltoid 02/28/2014 02/27/2009 33 Influenza 03/23/2015 sanofi Yamisee PMC Fluzone Quadrivalent [id number] Intramuscular Right Deltoid 03/23/2015 12/29/2014 140 Influenza 03/04/2016 sanofi Yamisee PMC Fluzone Quadrivalent UI [id number] [id number] Intramuscular Left Deltoid 03/04/2016 12/29/2014 141 History of Past Illness Name Date of Onset Comments Anxiety Arthritis unspecified Diverticulitis Of Colon Sacroiliitis Abnormal Uterine Bleeding 06/26/2011 Endometrial hyperplasia, unspecified 06/26/2011 Pelvic Pain 06/26/2011 Family History Of Breast Cancer 06/26/2011 Kidney Calculus Constipation Depression and anxiety [...] Sep 5 2011 9:12AM SI joint pain Jan 28 [...] SI joint pain Sep 01 2012 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 Sep 01 2012 4:05PM Wrist [...] Sep 3 2012 3:35PM Neuralgia Sep 3 2013 3:35PM Anxiety Disorder Sep 6 2013 8:51AM Radiculopathy, lumbosacral Feb 22 2013 4:00PM [...] Jun 06 2013 9:51AM Radiculopathy, lumbosacral Feb 7 2013 9:09AM SI joint pain b 2013 9:09AM Neuralgia Feb 7 2013 9:09AM Pain in joint; Right Hip b 7 2013 9:09AM Lumbosacral Radiculopathy b 12 2013 8:30AM Radiculopathy, lumbosacral Jul 29 2013 [...] in left foot Jun 11 2016 2:05PM Payers Insurance Name Company Name Plan Name Plan Number Policy Number Policy Group Number Start Date [employer] [place] [id number] N/A [employer] [place] [id number] Saturday, 2011 [employer] [place] [id number] N/A [employer] [place] [id number] Thursday, 2013 UMR UMR [id number] N/A [employer] [id number] N/A [employer] [place] [id number] N/A [employer] Care [employer] [id number] N/A [employer] [id number] N/A [employer] [id number] DOI [id number] May History of Encounters Visit Date Visit Type Provider 06/11/2016 Office visit Chelsea Rodríguez APRN 06/05/2016 Office visit Leonardo Cowan PSYCH RN 05/14/2016 Office visit Chelsea Rodríguez PSYCH RN 05/05/2016 Office visit Leonardo Cowan PSYCH RN 04/24/2016 Office visit Chelsea Rodríguez PSYCH RN 04/07/2016 Office visit Chelsea Rodríguez PSYCH RN 03/04/2016 Office visit Chelsea Rodríguez PSYCH RN 01/14/2016 Office visit Chelsea Rodríguez PSYCH RN 01/09/2016 Office visit Leonardo Cowan PSYCH RN 01/04/2016 Office visit Leonardo Cowan PSYCH RN 11/27/2015 Office visit Chelsea Rodríguez PSYCH RN 08/23/2015 Office visit Chelsea Rodríguez PSYCH RN 07/19/2015 Office visit 07/19/2015 Office visit Chelsea Rodríguez PSYCH RN 06/21/2015 Office visit Chelsea Rodríguez PSYCH RN 05/03/2015 Nurse visit Adela PORTER 04/12/2015 Office visit Adela PORTER 03/23/2015 Office visit Chelsea Rodríguez APRN 03/08/2015 Office visit Adela PORTER 02/14/2015 Office visit Leonardo Cowan APRN 02/08/2015 Office visit Adela PORTER 02/07/2015 Office visit Leonardo Cowan APRN 01/11/2015 Office visit Adela PORTER 12/28/2014 Office visit Chelsea Rodríguez APRN 12/14/2014 Nurse visit Adela PITTMANP 11/23/2014 Nurse visit Adela Cole DENTAL TECH 10/26/2014 Office visit Adela Cole DENTAL TECH 10/12/2014 Office visit 10/12/2014 Office visit Chelsea Rodríguez PSYCH RN 10/05/2014 Nurse visit Adela Cole DENTAL TECH 09/07/2014 Office visit Adela Cole DENTAL TECH 08/17/2014 Office visit 08/17/2014 Office visit 08/17/2014 Office visit Chelsea Rodríguez PSYCH RN 08/14/2014 Office visit Adela Cole DENTAL TECH 07/27/2014 Office visit Adela Cole DENTAL TECH 2014 Office visit Adela Cole DENTAL TECH 2014 Office visit Mica Lr PSYCH RN 06/28/2014 Nurse visit Adela Cole DENTAL TECH 05/31/2014 Office visit Adela Cole DENTAL TECH 05/03/2014 Voided Adela Cole DENTAL TECH 04/26/2014 Office visit Mica Lr PSYCH RN 04/05/2014 Office visit Adela Cole DENTAL TECH 03/10/2014 Office visit Adela PITTMANP 02/28/2014 Office visit Mica Lr PSYCH RN 02/24/2014 Office visit Adela PITTMANP 02/06/2014 Office visit Adela PITTMANP 01/10/2014 Nurse visit Suzan Liang MD 01/06/2014 Office visit Mica Lr PSYCH RN 12/15/2013 Office visit Adela Cole DENTAL TECH 11/17/2013 Office visit Chelsea Rodríguez PSYCH RN 11/17/2013 Office visit Adela Cole DENTAL TECH 10/20/2013 Office visit Adela Cole DENTAL TECH 09/22/2013 Office visit Adela Cole DENTAL TECH 08/30/2013 Office visit Chelsea Rodríguez PSYCH RN 08/26/2013 Office visit Beti Reyna PSYCH RN 07/29/2013 Office visit Adela Cole DENTAL TECH 07/06/2013 Procedures Elmira Campbell MD 07/01/2013 Office visit Adela Cole DENTAL TECH 06/06/2013 Office visit Adela Cole DENTAL TECH 05/31/2013 Office visit Chelsea Marcos PSYCH RN 05/11/2013 Office visit Adela Cole DENTAL TECH 03/22/2013 Office visit Adela Cole DENTAL TECH 03/10/2013 Office visit Adelacatherine Cole DENTAL TECH 03/04/2013 Office visit Adela AlexMarcus Cole DENTAL TECH 03/02/2013 Office visit Odette Elam MD 02/22/2013 Office visit Adela M. Douglas DENTAL TECH 01/28/2013 Office visit Chelsea Rodríguez PSYCH RN 01/25/2013 Office visit Adelacatherine Cole DENTAL TECH 12/27/2012 Office visit Adela Cole DENTAL TECH 12/07/2012 [facility] Pablo Croft MD 11/24/2012 Office visit Pablo Croft MD 11/02/2012 Office visit Kylah Wright PSYCH RN 11/02/2012 Office visit Mica Lr PSYCH RN 10/05/2012 [facility] Pablo Croft MD 09/30/2012 Office visit Kylah Wright PSYCH RN 09/01/2012 Office visit Kylah Wright PSYCH RN 07/21/2012 Office visit Odette Elam MD 06/16/2012 Office visit Pablo Croft MD 05/11/2012 [facility] Pablo Croft MD 04/28/2012 Office visit Pablo Croft MD 04/20/2012 Office visit Odette Elam MD 03/29/2012 Office visit Pablo Croft MD 03/16/2012 [facility] Pablo Croft MD 03/09/2012 [facility] Pablo Croft MD 02/24/2012 [facility] Pablo Croft MD 02/11/2012 Office visit Pablo Croft MD 01/28/2012 Office visit Pablo Croft MD 01/19/2012 Office visit Odette Elam MD 12/03/2011 Office visit Reji Bowens MD 11/12/2011 Office visit Alison Antoine PSYCH RN 10/28/2011 Procedures Reji Bowens MD 10/07/2011 Office visit Odette Elam MD 09/04/2011 Surgery Reji Bowens MD 08/15/2011 Surgery Reji Bowens MD 07/22/2011 [facility] Naveen Aguilar MD 07/22/2011 [facility] Reji Bowens MD 07/14/2011 Surgery Reji Bowens MD 06/26/2011 Office visit Odette Elam MD 06/24/2011 Office visit Reji Bowens MD 12/04/2010 [facility] Geraldine Church MD
--- OUTSIDE RECORDS SUMMARY | 2018-02-14 10:54 | XMS REPORT ---
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 [...] and screen Returned 10/29/2011 12:00 AM CYSTOMETROGRAM W/CASTING TRUCKER&UP Reviewed 10/29/2011 12:00 AM ELECTRO-UROFLOWMETRY FIRST Reviewed 10/29/2011 12:00 AM INTRAABDOMINAL PRESSURE TEST Reviewed 11/12/2011 12:00 AM X-RAY URETHRA/BLADDER Reviewed 11/12/2011 12:00 AM X-RAY EXAM SI JOINTS 3/> VWS Reviewed 01/28/2012 12:00 AM MRI LUMBAR SPINE W/O DYE Returned 04/20/2012 12:00 AM THER/PROPH/DIAG INJ SC/IM Reviewed 04/20/2012 12:00 AM Depo-Medrol, Per 120 Mg [facility]#2440-4522-75 Reviewed 07/21/2012 12:00 AM THER/PROPH/DIAG INJ SC/IM Reviewed 07/21/2012 12:00 AM Depo-Medrol, Per 120 Mg [facility]#9157-8952-39 Reviewed 09/01/2012 12:00 AM Drug Screen (Non-Medicare) Reviewed 09/01/2012 12:00 AM Kenalog, Per 10 Mg [facility]#8571-5290-76 Reviewed 11/02/2012 12:00 AM Norflex, Up to 60 Mg [facility]#66124-454-56 Reviewed 11/02/2012 12:00 AM INJ TRIGGER POINT 1/2 MUSCL Reviewed 11/02/2012 12:00 AM Bupivicaine, 30 ml [facility]#1237-2548-27 Reviewed 11/02/2012 12:00 AM THER/PROPH/DIAG INJ SC/IM Reviewed 11/02/2012 12:00 AM Norflex, Up to 60 Mg [facility]#77749-571-80 Reviewed 12/27/2012 12:00 AM COMPLETE CBC W/AUTO DIFF WBC Returned 12/27/2012 12:00 AM COMPREHEN METABOLIC PANEL Returned 12/27/2012 12:00 AM ASSAY THYROID STIM HORMONE Returned 12/27/2012 12:00 AM VITAMIN B-12 Returned 12/27/2012 12:00 AM ASSAY OF FERRITIN Returned 12/27/2012 12:00 AM ANTINUCLEAR ANTIBODIES Reviewed 12/27/2012 12:00 AM DNA ANTIBODY [place] Reviewed 12/27/2012 12:00 AM NUCLEAR ANTIGEN ANTIBODY [...] 05/31/2013 12:00 AM Decadron, Per 1 Mg [facility]# [address]-62 Reviewed 05/31/2013 12:00 AM Depo-Medrol, Per 80 Mg [facility]#5442-5213-15 Reviewed 05/31/2013 12:00 AM THER/PROPH/DIAG INJ SC/IM Reviewed 06/06/2013 12:00 AM MUSCLE TEST 2 LIMBS Reviewed 06/06/2013 12:00 AM Nerve conduction studies with F-wave Reviewed 08/26/2013 12:00 AM MAMMOGRAM SCREENING Returned 08/26/2013 12:00 AM MAMMOGRAM SCREENING Reviewed 08/30/2013 12:00 AM THER/PROPH/DIAG INJ SC/IM Reviewed 08/30/2013 12:00 AM Decadron, Per 1 Mg [facility]# [address]-61 Reviewed 08/30/2013 12:00 AM Depo-Medrol, Per 80 Mg [facility]#5931-4906-87 Reviewed 11/17/2013 12:00 AM THER/PROPH/DIAG INJ SC/IM Reviewed 11/17/2013 12:00 AM Decadron, Per 1 Mg [facility]# [address]-99 Reviewed 11/17/2013 12:00 AM Depo-Medrol 40mg Reviewed 01/06/2014 12:00 AM THER/PROPH/DIAG INJ SC/IM Reviewed 01/06/2014 12:00 AM Decadron, Per 1 Mg [facility]# [address]-21 Reviewed 01/06/2014 12:00 AM Rocephin 1 gram [facility]#5261-9335-03 Reviewed 01/10/2014 12:00 AM OFFICE/OUTPATIENT VISIT EST [...] Per 1 Mg [facility]# [address]-27 Reviewed 10/12/2014 12:00 AM Depo-Medrol 40mg Reviewed [...] CVX Influenza 03/02/2013 sanofi pasteur PMC Fluzone [id number] Intramuscular Left Deltoid 03/02/2013 12/17/2012 141 Pneumococcal 02/28/2014 [employer] 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 [id number] Saturday, 2011 [employer] [facility] [id number] [facility] [id number] Thursday, 2013 History of Encounters Visit Date Visit Type Provider 04/12/2015 Office visit Adela Cole SENIOR SALES REPRESENTATIVE 03/23/2015 Office visit Chelsea Marcos ECOMMERCE PROJECT MANAGER 03/08/2015 Office visit Adela PITTMANP 02/14/2015 Office visit Leonardo Camryn ECOMMERCE PROJECT MANAGER 02/08/2015 Office visit Adela Cole SENIOR SALES REPRESENTATIVE 02/07/2015 Office visit Leonardo Camryn ECOMMERCE PROJECT MANAGER 01/11/2015 Office visit Adela Cole SENIOR SALES REPRESENTATIVE 12/28/2014 Office visit Chelsea Marcos ECOMMERCE PROJECT MANAGER 12/14/2014 Nurse visit Adela Cole SENIOR SALES REPRESENTATIVE 11/23/2014 Nurse visit Adela PITTMANP 10/26/2014 Office visit Adela PITTMANP 10/12/2014 Office visit Chelsea Marcos ECOMMERCE PROJECT MANAGER 10/05/2014 Nurse visit Adela PITTMANP 09/07/2014 Office visit Adela PITTMANP 08/17/2014 Office visit Chelsea Marcos ECOMMERCE PROJECT MANAGER 08/14/2014 Office visit Adela PITTMANP 07/27/2014 Office visit Adela PITTMANP 2014 Office visit Adela PITTMANP 2014 Office visit Mica Lr ECOMMERCE PROJECT MANAGER 06/28/2014 Nurse visit Adela PITTMANP 05/31/2014 Office visit Adela PITTMANP 05/03/2014 Voided Adela PITTMANP 04/26/2014 Office visit Mica Lr ECOMMERCE PROJECT MANAGER 04/05/2014 Office visit Adela PITTMANP 03/10/2014 Office visit Adela PITTMANP 02/28/2014 Office visit Mica Lr ECOMMERCE PROJECT MANAGER 02/24/2014 Office visit Adela PITTMANP 02/06/2014 Office visit Adela PITTMANP 01/10/2014 Nurse visit Suzan Liang MD 01/06/2014 Office visit Mica Lr ECOMMERCE PROJECT MANAGER 12/15/2013 Office visit Adela PITTMANP 11/17/2013 Office visit Chelsea Rodríguez ECOMMERCE PROJECT MANAGER 11/17/2013 Office visit Adela PITTMANP 10/20/2013 Office visit Adela PITTMANP 09/22/2013 Office visit Adela PITTMANP 08/30/2013 Office visit Chelsea Rodríguez ECOMMERCE PROJECT MANAGER 08/26/2013 Office visit Beti MMarcus Reyna ECOMMERCE PROJECT MANAGER 07/29/2013 Office visit Adela Cole SENIOR SALES REPRESENTATIVE 07/06/2013 Procedures Elmira Campbell MD 07/01/2013 Office visit Adela M. Douglas SENIOR SALES REPRESENTATIVE 06/06/2013 Office visit Adela Saravia Douglas SENIOR SALES REPRESENTATIVE 05/31/2013 Office visit Chelsea Rodríguez ECOMMERCE PROJECT MANAGER 05/11/2013 Office visit Adela M. Douglas SENIOR SALES REPRESENTATIVE 03/22/2013 Office visit Adela M. Douglas SENIOR SALES REPRESENTATIVE 03/10/2013 Office visit Adela M. Douglas SENIOR SALES REPRESENTATIVE 03/04/2013 Office visit Adela M. Douglas SENIOR SALES REPRESENTATIVE 03/02/2013 Office visit Odette Elam MD 02/22/2013 Office visit Adela AlexMarcus Cole SENIOR SALES REPRESENTATIVE 01/28/2013 Office visit Chelsea Rodríguez ECOMMERCE PROJECT MANAGER 01/25/2013 Office visit Adela Manjit Douglas SENIOR SALES REPRESENTATIVE 12/27/2012 Office visit Adela Cole SENIOR SALES REPRESENTATIVE 12/07/2012 Hospital Pablo Croft MD 11/24/2012 Office visit Pablo Croft MD 11/02/2012 Office visit Kylah Wright ECOMMERCE PROJECT MANAGER 11/02/2012 Office visit Mica Lr ECOMMERCE PROJECT MANAGER 10/05/2012 Hospital Pablo Croft MD 09/30/2012 Office visit Kylah Wright ECOMMERCE PROJECT MANAGER 09/01/2012 Office visit Kylah Wright ECOMMERCE PROJECT MANAGER 07/21/2012 Office visit Odette Elam MD 06/16/2012 Office visit Pablo Croft MD 05/11/2012 Hospital Pablo Croft MD 04/28/2012 Office visit Pablo Croft MD 04/20/2012 Office visit Odette Elam MD 03/29/2012 Office visit Pablo Croft MD 03/16/2012 Hospital Pablo Croft MD 03/09/2012 Hospital Pablo Croft MD 02/24/2012 Hospital Pablo Croft MD 02/11/2012 Office visit Pablo Crfot MD 01/28/2012 Office visit Pablo Croft MD 01/19/2012 Office visit Odette Elam MD 12/03/2011 Office visit Reji Bowens MD 11/12/2011 Office visit Alison Antoine ECOMMERCE PROJECT MANAGER 10/28/2011 Procedures Reji Bowens MD 10/07/2011 Office [...]
--- NOTE | 2018-02-14 10:56 | ED Cough/URI ---
General Chief Complaint: Cough/Cold/Flu Symptoms Stated Complaint: SINUS INFECTION Source: patient Exam Limitations: no limitations History of Present Illness Date Seen by Provider: Feb 14, 2018 Time Seen by Provider: 10:54 Initial Comments To ER with reports of nasal congestion, facial pain and pressure around her nose and behind her eyes. She was seen at urgent care and given an injection of Rocephin a few days ago which she states initially helped with the pressure. She 's been given prednisone and Augmentin which she is currently on but reports that the pain is intolerable. This pain persists despite her Xanax, baclofen, Ambien and hydrocodone. She has clear nasal drainage. Timing/Duration: constant, week Severity/Quality: moderate Associated Symptoms: nasal congestion, nasal drainage, sinus infection Allergies and Home Medications Allergies Coded Allergies: NKANo Known Allergies (Verified Allergy, Unknown, 09/14/05) Home Medications Fluoxetine Hcl 40 Mg Capsule, 1 EACH PO DAILY, (Reported) Hydrocodone Bit/Acetaminophen 1 Tab Tablet, 1 EACH PO Q 4 - 6 HRS PRN Prescribed by: WING LOPEZ MD on 09/03/09 1301 Hydrocodone Bit/Acetaminophen 1 Each Capsule, 2 EACH PO Q6HR PRN Prescribed by: KADI ARMANDO on 01/03/10 2133 Hydromorphone Hcl 4 Mg Tab, 1 TAB PO PRN Prescribed by: VERO MUELLER on 10/21/11 1349 Meloxicam 15 Mg Tablet, 1 EACH PO DAILY, (Reported) Tramadol Hcl 50 Mg Tablet, 50 MG PO QID PRN, (Reported) Patient Home Medication List Home Medication List Reviewed: Yes Review of Systems Review of Systems Constitutional: see HPI; No chills, No fever EENTM: see HPI, nose congestion Respiratory: no symptoms reported Cardiovascular: no symptoms reported Genitourinary: no symptoms reported Musculoskeletal: no symptoms reported Skin: no symptoms reported Psychiatric/Neurological: No Symptoms Reported Hematologic/Lymphatic: No Symptoms Reported Immunological/Allergic: no symptoms reported Past Yexjkgk-Vpvtac-Ycwakc Hx Patient Social History Recent Foreign Travel: No Contact w/Someone Who Travel: No Past Medical History Reproductive Disorders: Yes Physical Exam Vital Signs - First Documented 02/14/18 10:40 Temp 98.3 Pulse 78 Resp 16 B/P (MAP) 156/101 (119) Pulse Ox 97 O2 Delivery Room Air Capillary Refill : Height: 5'10.00" Weight: 147lbs. 0.0oz. 66.086613hw; 21.1 BMI Method:Stated General Appearance: WD/WN, no apparent distress Eyes: Bilateral Eye Normal Inspection, Bilateral Eye PERRL, Bilateral Eye EOMI HEENT: PERRL/EOMI, normal ENT inspection, pharynx normal (no maxillary swelling ), other (serous otitis on the right) Neck: non-tender, full range of motion Respiratory: normal breath sounds, no respiratory distress, no accessory muscle use Gastrointestinal: normal bowel sounds, non tender, soft Neurologic/Psychiatric: alert, normal mood/affect, oriented x 3 Skin: normal color, warm/dry Progress/Results/Core Measures Suspected Sepsis SIRS Temperature: Pulse: Respiratory Rate: Blood Pressure / Mean: Results/Orders My Orders Orders - AD AYALA APRN Ketorolac Injection (Toradol Injection) (02/14/18 11:00) Diphenhydramine Injection (Benadryl Inje (02/14/18 11:00) Pseudoephedrine Tablet (Sudafed Tablet) (02/14/18 11:00) Ct Sinus Complete Wo (02/14/18 11:09) Medications Given in ED Current Medications Medications Dose Ordered Sig/Gilberto Route Start Time Stop Time Status Last Admin Dose Admin Diphenhydramine HCl 25 mg ONCE ONCE IM 02/14/18 11:00 02/14/18 11:01 DC 02/14/18 11:06 25 MG Vital Signs/I&O 02/14/18 10:40 Temp 98.3 Pulse 78 Resp 16 B/P (MAP) 156/101 (119) Pulse Ox 97 O2 Delivery Room Air Capillary Refill : Departure Communication (Admissions) Patient refused Toradol injection stating it will not help Impression Primary Impression: Sinus congestion Disposition: HOME, SELF-CARE Condition: Stable Departure-Patient Inst. Decision time for Depature: 11:13 Referrals: NO,LOCAL PHYSICIAN (PCP/Family) Primary Care Physician Patient Instructions: Cough, Runny Nose, and the Common Cold Add. Discharge Instructions: All discharge instructions reviewed with patient and/or family. Voiced understanding. Scripts Pseudoephedrine HCl (Sudafed) 30 Mg Tablet 30 MG PO Q4H PRN for CONGESTION, #14 TAB Prov: AD AYALA APRN 02/14/18 AD AYALA APRN Feb 14, 2018 10:56
--- OUTSIDE RECORDS SUMMARY | 2018-02-14 10:57 | XMS REPORT ---
Author Chelsea Soliz Organization [facility] Address [address] [place], [place] [id number] Care Team Providers Care Food And Beverage Assistant Manager Name Role Phone Chelsea Rodríguez PCP Unavailable Chelsea Rodríguez PreferredProvider Unavailable Allergies and Adverse Reactions Name Reaction Notes Keflex yeast infection does not want to take due to causes yeast infection Plan of Treatment Planned Activity Comments Planned Date Planned Time Plan/Goal Treadmill 06/22/2015 12:00 AM CBC With Auto Differential 08/29/2016 12:00 AM CMP (comprehensive metabolic panel) 08/29/2016 12:00 AM bilateral foot pain 06/24/2016 1:00 PM bilateral foot pain Basic metabolic profile 10/12/2014 12:00 AM Medications [...] capsule Take 1 cap daily at HS Effexor XR 37.5 mg oral capsule,extended release 24hr 06/11/2016 take 1 capsule (37.5 mg) by oral route once daily with food cyclobenzaprine 10 mg oral tablet 07/30/2016 take 1 tablet by oral route once a day (at bedtime) for 30 days cyclobenzaprine 10 mg oral tablet 08/28/2016 TAKE 1 TABLET BY MOUTH ONCE EVERY NIGHT AT BEDTIME Effexor XR 75 mg oral capsule,extended release 24hr 08/29/2016 take 1 capsule (75 mg) by oral route once daily alprazolam 0.5 mg oral tablet 11/20/2016 02/18/2017 take 1 tablet by oral route every 6 hours for 30 days post dated on script for 11/27/16 Flonase Allergy Relief 50 mcg/actuation nasal spray,suspension 11/20/2016 inhale 1 spray (50 mcg) in each nostril by intranasal route once daily meloxicam 15 mg oral tablet 11/20/2016 TAKE 1 TABLET BY MOUTH ONCE DAILY Restoril 15 mg oral capsule 11/20/2016 02/18/2017 take 1 capsule (15 mg) by oral route once daily at bedtime as needed for 30 days due for refill 11/27/16 cyclobenzaprine 10 mg oral tablet 01/19/2017 04/19/2017 TAKE 1 TABLET BY MOUTH ONCE EVERY NIGHT AT BEDTIME Name Start Date Expiration Date SIG Comments [...] then Take 1 tab x 2 days. 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 History [...] Decadron, Per 1 Mg [facility]# [address]-18 Reviewed 11/27/2015 12:00 AM Depo-Medrol 40mg Reviewed [...] Reviewed 04/24/2016 12:00 AM Toradol 60 Mg [facility]#3016-3791-40 Reviewed 06/11/2016 12:00 AM Consult/Referral Reviewed 06/11/2016 2:41 PM URINALYSIS AUTO W/O SCOPE Reviewed 06/11/2016 12:00 AM URINE CULTURE/COLONY COUNT Reviewed 06/13/2016 12:00 AM Splint, prefabricated, wrist or ankle Reviewed 07/31/2016 12:00 AM LIPID PANEL Reviewed 07/31/2016 12:00 AM MAMMOGRAPHY SCREENING, DIGITAL Reviewed 10/29/2011 12:00 AM CYSTOMETROGRAM W/PIER HAND&UP Reviewed 10/29/2011 12:00 AM ELECTRO-UROFLOWMETRY FIRST Reviewed 10/29/2011 12:00 AM INTRAABDOMINAL PRESSURE TEST Reviewed 11/12/2011 12:00 AM X-RAY URETHRA/BLADDER Reviewed 11/12/2011 12:00 AM X-RAY EXAM SI JOINTS 3/> VWS Reviewed 01/28/2012 12:00 AM MRI LUMBAR SPINE W/O DYE Reviewed 04/20/2012 12:00 AM THER/PROPH/DIAG INJ SC/IM Reviewed 04/20/2012 12:00 AM Depo-Medrol, Per 120 Mg [facility]#3779-2181-77 Reviewed 07/21/2012 12:00 AM THER/PROPH/DIAG INJ SC/IM Reviewed 07/21/2012 12:00 AM Depo-Medrol, Per 120 Mg [place]#1037-4935-76 Reviewed 09/01/2012 12:00 AM Drug Screen (Non-Medicare) Reviewed 09/01/2012 12:00 AM DRAIN/INJ JOINT/BURSA W/O US Reviewed 09/01/2012 12:00 AM Kenalog, Per 10 Mg [facility]#2093-0509-67 Reviewed 11/02/2012 12:00 AM Norflex, Up to 60 Mg [facility]#09826-419-62 Reviewed 11/02/2012 12:00 AM INJ TRIGGER POINT 1/2 MUSCL Reviewed 11/02/2012 12:00 AM Bupivicaine, 30 ml [facility]#6728-8402-44 Reviewed 11/02/2012 12:00 AM THER/PROPH/DIAG INJ SC/IM Reviewed 11/02/2012 12:00 AM Norflex, Up to 60 Mg [facility]#00748-173-36 Reviewed 12/27/2012 12:00 AM COMPLETE CBC W/AUTO DIFF WBC Reviewed 12/27/2012 12:00 AM COMPREHEN METABOLIC PANEL Reviewed 12/27/2012 12:00 AM ASSAY THYROID STIM HORMONE Reviewed 12/27/2012 12:00 AM VITAMIN B-12 Reviewed 12/27/2012 12:00 AM ASSAY OF FERRITIN Reviewed 12/27/2012 12:00 AM ANTINUCLEAR ANTIBODIES Reviewed 12/27/2012 12:00 AM DNA ANTIBODY BEAVER Reviewed 12/27/2012 12:00 AM NUCLEAR ANTIGEN ANTIBODY [...] Decadron, Per 1 Mg [facility]# [address]-05 Reviewed 05/31/2013 12:00 AM Depo-Medrol, Per 80 Mg [facility]#6629-9390-72 Reviewed 05/31/2013 12:00 AM THER/PROPH/DIAG INJ SC/IM Reviewed 06/06/2013 12:00 AM MUSCLE TEST 2 LIMBS Reviewed 06/06/2013 12:00 AM Nerve conduction studies with F-wave Reviewed 08/26/2013 12:00 AM MAMMOGRAM SCREENING Reviewed 08/26/2013 12:00 AM MAMMOGRAM SCREENING Reviewed 08/30/2013 12:00 AM THER/PROPH/DIAG INJ SC/IM Reviewed 08/30/2013 12:00 AM Decadron, Per 1 Mg [facility]# [address]-92 Reviewed 08/30/2013 12:00 AM Depo-Medrol, Per 80 Mg [facility]#9527-3571-17 Reviewed 11/17/2013 12:00 AM THER/PROPH/DIAG INJ SC/IM Reviewed 11/17/2013 12:00 AM Decadron, Per 1 Mg [facility]# [address]-44 Reviewed 11/17/2013 12:00 AM Depo-Medrol 40mg Reviewed 01/06/2014 12:00 AM THER/PROPH/DIAG INJ SC/IM Reviewed 01/06/2014 12:00 AM Decadron, Per 1 Mg [facility]# [address]-77 Reviewed 01/06/2014 12:00 AM Rocephin 1 gram [facility]#3730-1859-94 Reviewed 01/10/2014 12:00 AM OFFICE/OUTPATIENT VISIT EST [...] Decadron, Per 1 Mg [facility]# [address]-25 Reviewed 10/12/2014 12:00 AM Depo-Medrol 40mg Reviewed [...] CVX Influenza 03/02/2013 sanofi pasteur PMC Fluzone [id number] Intramuscular Left Deltoid 03/02/2013 12/17/2012 141 X 02/28/2014 [employer] 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 Sep 01 2012 4:05PM Wrist [...] 9:09AM Pain in joint; Right Hip b 2013 9:09AM Lumbosacral Radiculopathy b 2013 8:30AM [...] other allergic trigger Nov 20 2016 1:57PM Payers Insurance Name Company Name Plan Name Plan Number Policy Number Policy Group Number Start Date [employer] [place] [id number] N/A [employer] [place] [id number] Saturday, 2011 [employer] [place] [id number] N/A [employer] [place] [id number] Thursday, 2013 [facility] [place] [id number] N/A [facility] [employer] [facility] [id number] N/A [id number] N/A Res [facility] [employer] [id number] N/A [employer] [id number] N/A [employer] [id number] DOI [id number] May [employer] [facility] [id number] N/A History of Encounters Visit Date Visit Type Provider 11/20/2016 Office visit Chelsea Rodríguez AMUSEMENT RIDE INSPECTOR 08/29/2016 Office visit Chelsea Marcos AMUSEMENT RIDE INSPECTOR 07/31/2016 Office visit Chelsea Marcos AMUSEMENT RIDE INSPECTOR 06/11/2016 Office visit Chelsea Marcos AMUSEMENT RIDE INSPECTOR 06/05/2016 Office visit Leonardo Cowan AMUSEMENT RIDE INSPECTOR 05/14/2016 Office visit Chelsea Marcos AMUSEMENT RIDE INSPECTOR 05/05/2016 Office visit Leonardo Cowan AMUSEMENT RIDE INSPECTOR 04/24/2016 Office visit Chelsea Marcos AMUSEMENT RIDE INSPECTOR 04/07/2016 Office visit Chelsea Marcos AMUSEMENT RIDE INSPECTOR 03/04/2016 Office visit Chelsea Marcos AMUSEMENT RIDE INSPECTOR 01/14/2016 Office visit Chelsea Marcos AMUSEMENT RIDE INSPECTOR 01/09/2016 Office visit Leonardo Cowan AMUSEMENT RIDE INSPECTOR 01/04/2016 Office visit Leonardo Cowan AMUSEMENT RIDE INSPECTOR 11/27/2015 Office visit Chelsea Marcos AMUSEMENT RIDE INSPECTOR 08/23/2015 Office visit Chelsea Marcos AMUSEMENT RIDE INSPECTOR 07/19/2015 Office visit 07/19/2015 Office visit Chelsea Rodríguez AMUSEMENT RIDE INSPECTOR 06/21/2015 Office visit Chelsea Marcos AMUSEMENT RIDE INSPECTOR 05/03/2015 Nurse visit Adela PORTER 04/12/2015 Office visit Adela Cole ENVIRONMENTAL SERVICE AIDE 03/23/2015 Office visit Chelsea Marcos AMUSEMENT RIDE INSPECTOR 03/08/2015 Office visit Adela Cole ENVIRONMENTAL SERVICE AIDE 02/14/2015 Office visit Leonardo Cowan AMUSEMENT RIDE INSPECTOR 02/08/2015 Office visit Adela PORTER 02/07/2015 Office visit Leonardo Cowan AMUSEMENT RIDE INSPECTOR 01/11/2015 Office visit Adela Cole ENVIRONMENTAL SERVICE AIDE 12/28/2014 Office visit Chelsea Rodríguez AMUSEMENT RIDE INSPECTOR 12/14/2014 Nurse visit Adela PITTMANP 11/23/2014 Nurse visit Adela PORTER 10/26/2014 Office visit Adela PITTMANP 10/12/2014 Office visit 10/12/2014 Office visit Chelsea Rodríguez AMUSEMENT RIDE INSPECTOR 10/05/2014 Nurse visit Adela PITTMANP 09/07/2014 Office visit Adela PORTER 08/17/2014 Office visit 08/17/2014 Office visit 08/17/2014 Office visit Chelsea Rodríguez AMUSEMENT RIDE INSPECTOR 08/14/2014 Office visit Adela Cole ENVIRONMENTAL SERVICE AIDE 07/27/2014 Office visit Adela Cole ENVIRONMENTAL SERVICE AIDE 2014 Office visit Adela Cole ENVIRONMENTAL SERVICE AIDE 2014 Office visit Mica Lr AMUSEMENT RIDE INSPECTOR 06/28/2014 Nurse visit Adela Cole ENVIRONMENTAL SERVICE AIDE 05/31/2014 Office visit Adela Cole ENVIRONMENTAL SERVICE AIDE 05/03/2014 Voided Adela Cole ENVIRONMENTAL SERVICE AIDE 04/26/2014 Office visit Micawillian Lr AMUSEMENT RIDE INSPECTOR 04/05/2014 Office visit Adela Cole ENVIRONMENTAL SERVICE AIDE 03/10/2014 Office visit Adela Cole ENVIRONMENTAL SERVICE AIDE 02/28/2014 Office visit Mica Lr AMUSEMENT RIDE INSPECTOR 02/24/2014 Office visit Adela Cole ENVIRONMENTAL SERVICE AIDE 02/06/2014 Office visit Adela Cole ENVIRONMENTAL SERVICE AIDE 01/10/2014 Nurse visit Suzan Liang MD 01/06/2014 Office visit Mica Lr AMUSEMENT RIDE INSPECTOR 12/15/2013 Office visit Adela Cole ENVIRONMENTAL SERVICE AIDE 11/17/2013 Office visit Chelsea Rodríguez AMUSEMENT RIDE INSPECTOR 11/17/2013 Office visit Adela Cole ENVIRONMENTAL SERVICE AIDE 10/20/2013 Office visit Adela Cole ENVIRONMENTAL SERVICE AIDE 09/22/2013 Office visit Adela Cole ENVIRONMENTAL SERVICE AIDE 08/30/2013 Office visit Chelsea Rodríguez AMUSEMENT RIDE INSPECTOR 08/26/2013 Office visit Beti Reyna AMUSEMENT RIDE INSPECTOR 07/29/2013 Office visit Adela Cole ENVIRONMENTAL SERVICE AIDE 07/06/2013 Procedures Elmira Campbell MD 07/01/2013 Office visit Adela Cole ENVIRONMENTAL SERVICE AIDE 06/06/2013 Office visit Adela Cole ENVIRONMENTAL SERVICE AIDE 05/31/2013 Office visit Chelsea Marcos AMUSEMENT RIDE INSPECTOR 05/11/2013 Office visit Adela Cole ENVIRONMENTAL SERVICE AIDE 03/22/2013 Office visit Adela Cole ENVIRONMENTAL SERVICE AIDE 03/10/2013 Office visit Adela Cole ENVIRONMENTAL SERVICE AIDE 03/04/2013 Office visit Adela PITTMANP 03/02/2013 Office visit Odette Elam MD 02/22/2013 Office visit Adela PITTMANP 01/28/2013 Office visit Chelsea Rodríguez AMUSEMENT RIDE INSPECTOR 01/25/2013 Office visit Adela PITTMANP 12/27/2012 Office visit Adela PITTMANP 12/07/2012 [facility] Pablo Croft MD 11/24/2012 Office visit Pablo Croft MD 11/02/2012 Office visit Kylah Wright AMUSEMENT RIDE INSPECTOR 11/02/2012 Office visit Mica Lr AMUSEMENT RIDE INSPECTOR 10/05/2012 [facility] Pablo Croft MD 09/30/2012 Office visit Kylah Wright AMUSEMENT RIDE INSPECTOR 09/01/2012 Office visit Kylah Wright AMUSEMENT RIDE INSPECTOR 07/21/2012 Office visit Odette Elam MD 06/16/2012 Office visit Pablo Croft MD 05/11/2012 [facility] Pablo Croft MD 04/28/2012 Office visit Pablo Croft MD 04/20/2012 Office visit Odette Elam MD 03/29/2012 Office visit Pablo Croft MD 03/16/2012 [facility] Pablo Croft MD 03/09/2012 [facility] Pablo Croft MD 02/24/2012 [facility] Pablo Croft MD 02/11/2012 Office visit Pablo Croft MD 01/28/2012 Office visit Pablo Croft MD 01/19/2012 Office visit Odette Elam MD 12/03/2011 Office visit Reji Bowens MD 11/12/2011 Office visit Alison Antoine AMUSEMENT RIDE INSPECTOR 10/28/2011 Procedures Reji Bowens MD 10/07/2011 Office visit Odette Elma MD 09/04/2011 Surgery Reji Bowens MD 08/15/2011 Surgery Reji Bowens MD 07/22/2011 [facility] Naveen Aguilar MD 07/22/2011 [facility] Reji Bowens MD 07/14/2011 Surgery Reji Bowens MD 06/26/2011 Office visit Odette Elam MD 06/24/2011 Office visit Reji Bowens MD 12/04/2010 [facility] Asha Church MD
--- OUTSIDE RECORDS SUMMARY | 2018-02-14 10:59 | XMS REPORT ---
Author Chelsea Soliz Organization [facility] Address [address] [place], [place] [id number] Care Team Providers Care Proof Load Mechanic Name Role Phone Cehlsea Rodríguez PCP Unavailable Allergies and Adverse Reactions [...] then Take 1 tab x 2 days. 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 [...] 1 Mg [facility]# [address]-29 Reviewed 11/27/2015 12:00 AM Depo-Medrol 40mg Reviewed [...] INOCULATION TISSUE Returned 10/29/2011 12:00 AM CYSTOMETROGRAM W/HYDRAULIC PRESS TENDER&UP Reviewed 10/29/2011 12:00 AM ELECTRO-UROFLOWMETRY FIRST Reviewed 10/29/2011 12:00 AM INTRAABDOMINAL PRESSURE TEST Reviewed 11/12/2011 12:00 AM X-RAY URETHRA/BLADDER Reviewed 11/12/2011 12:00 AM X-RAY EXAM SI JOINTS 3/> VWS Reviewed 01/28/2012 12:00 AM MRI LUMBAR SPINE W/O DYE Returned 04/20/2012 12:00 AM THER/PROPH/DIAG INJ SC/IM Reviewed 04/20/2012 12:00 AM Depo-Medrol, Per 120 Mg [facility]#7493-9653-97 Reviewed 07/21/2012 12:00 AM THER/PROPH/DIAG INJ SC/IM Reviewed 07/21/2012 12:00 AM Depo-Medrol, Per 120 Mg [facility]#8355-0032-62 Reviewed 09/01/2012 12:00 AM Drug Screen (Non-Medicare) Reviewed 09/01/2012 12:00 AM DRAIN/INJ JOINT/BURSA W/O US Reviewed 09/01/2012 12:00 AM Kenalog, Per 10 Mg [facility]#5921-0709-31 Reviewed 11/02/2012 12:00 AM Norflex, Up to 60 Mg [facility]#24539-238-78 Reviewed 11/02/2012 12:00 AM INJ TRIGGER POINT 1/2 MUSCL Reviewed 11/02/2012 12:00 AM Bupivicaine, 30 ml [facility]#6446-9623-37 Reviewed 11/02/2012 12:00 AM THER/PROPH/DIAG INJ SC/IM Reviewed 11/02/2012 12:00 AM Norflex, Up to 60 Mg [facility]#10880-720-18 Reviewed 12/27/2012 12:00 AM COMPLETE CBC W/AUTO DIFF WBC Returned 12/27/2012 12:00 AM COMPREHEN METABOLIC PANEL Returned 12/27/2012 12:00 AM ASSAY THYROID STIM HORMONE Returned 12/27/2012 12:00 AM VITAMIN B-12 Returned 12/27/2012 12:00 AM ASSAY OF FERRITIN Returned 12/27/2012 12:00 AM ANTINUCLEAR ANTIBODIES Reviewed 12/27/2012 12:00 AM DNA ANTIBODY [place] Reviewed 12/27/2012 12:00 AM NUCLEAR ANTIGEN ANTIBODY [...] 1 Mg [facility]# [address]-80 Reviewed 05/31/2013 12:00 AM Depo-Medrol, Per 80 Mg [facility]#6142-1102-64 Reviewed 05/31/2013 12:00 AM THER/PROPH/DIAG INJ SC/IM Reviewed 06/06/2013 12:00 AM MUSCLE TEST 2 LIMBS Reviewed 06/06/2013 12:00 AM Nerve conduction studies with F-wave Reviewed 08/26/2013 12:00 AM MAMMOGRAM SCREENING Returned 08/26/2013 12:00 AM MAMMOGRAM SCREENING Reviewed 08/30/2013 12:00 AM THER/PROPH/DIAG INJ SC/IM Reviewed 08/30/2013 12:00 AM Decadron, Per 1 Mg [facility]# [address]-70 Reviewed 08/30/2013 12:00 AM Depo-Medrol, Per 80 Mg [facility]#3483-1697-59 Reviewed 11/17/2013 12:00 AM THER/PROPH/DIAG INJ SC/IM Reviewed 11/17/2013 12:00 AM Decadron, Per 1 Mg [facility]# [address]-16 Reviewed 11/17/2013 12:00 AM Depo-Medrol 40mg Reviewed 01/06/2014 12:00 AM THER/PROPH/DIAG INJ SC/IM Reviewed 01/06/2014 12:00 AM Decadron, Per 1 Mg [facility]# [address]-36 Reviewed 01/06/2014 12:00 AM Rocephin 1 gram [facility]#7767-9046-02 Reviewed 01/10/2014 12:00 AM OFFICE/OUTPATIENT VISIT EST [...] 1 Mg [facility]# [address]-11 Reviewed 10/12/2014 12:00 AM Depo-Medrol 40mg Reviewed [...] CVX Influenza 03/02/2013 sanofi pasteur PMC Fluzone [id number] Intramuscular Left Deltoid 03/02/2013 12/17/2012 141 X 02/28/2014 [employer]ck [employer] MSD Pneumovax 23 [id number] Intramuscular Left Deltoid 02/28/2014 02/27/2009 33 Influenza 03/23/2015 sanofi pasteur PMC Fluzone Quadrivalent [id number] Intramuscular Right Deltoid 03/23/2015 12/29/2014 140 Influenza [...] SI joint pain Sep 01 2012 3:06PM halfway medication use Sep 01 2012 4:05PM Wrist [...] Policy Group Number Start Date BCBS [employer] [facility] [id number] N/A Res Care ResCare [id number] N/A [place] [facility] [place] [employer] [id number] N/A [employer] [facility] [id number] Saturday, 2011 BCBS [employer] [facility] [id number] N/A [employer] [facility] [id number] Thursday, 2013 UMR UMR [id number] N/A [employer] [id number] N/A History of Encounters Visit Date Visit Type Provider 03/04/2016 Office visit Chelsea Rodríguez APRN 01/14/2016 Office visit Chelsea Rodríguez APRN 01/09/2016 Office visit Leonardo Cowan APRN 01/04/2016 Office visit Leonardo Cowan APRN 11/27/2015 Office visit Chelsea Rodríguez APRN 08/23/2015 Office visit Chelsea Rodríguez FARM HAND 07/19/2015 Office visit 07/19/2015 Office visit Chelsea Rodríguez FARM HAND 06/21/2015 Office visit Chelsea Rodríguez FARM HAND 05/03/2015 Nurse visit Adela Cole GUN REPAIR CLERK 04/12/2015 Office visit Adela Cole GUN REPAIR CLERK 03/23/2015 Office visit Chelsea Rodríguez FARM HAND 03/08/2015 Office visit Adela Cole GUN REPAIR CLERK 02/14/2015 Office visit Leonardo Cowan FARM HAND 02/08/2015 Office visit Adela Cole GUN REPAIR CLERK 02/07/2015 Office visit Leonardo Cowan FARM HAND 01/11/2015 Office visit Adela Coel GUN REPAIR CLERK 12/28/2014 Office visit Chelsea Rodríguez FARM HAND 12/14/2014 Nurse visit Adela Cole GUN REPAIR CLERK 11/23/2014 Nurse visit Adela Cole GUN REPAIR CLERK 10/26/2014 Office visit Adela PITTMANP 10/12/2014 Office visit 10/12/2014 Office visit Chelsea Rodríguez FARM HAND 10/05/2014 Nurse visit Adela Cole GUN REPAIR CLERK 09/07/2014 Office visit Adela PITTMANP 08/17/2014 Office visit 08/17/2014 Office visit 08/17/2014 Office visit Chelsea Rodríguez FARM HAND 08/14/2014 Office visit Adela Cole GUN REPAIR CLERK 07/27/2014 Office visit Adela PITTMANP 2014 Office visit Adela PITTMANP 2014 Office visit Mica Lr FARM HAND 06/28/2014 Nurse visit Adela PITTMANP 05/31/2014 Office visit Adela Cole GUN REPAIR CLERK 05/03/2014 Voided Adela PITTMANP 04/26/2014 Office visit Mica Lr FARM HAND 04/05/2014 Office visit Adela PITTMANP 03/10/2014 Office visit Adela PITTMANP 02/28/2014 Office visit Mica Lr FARM HAND 02/24/2014 Office visit Adela PITTMANP 02/06/2014 Office visit Adela PITTMANP 01/10/2014 Nurse visit Suzan Liang MD 01/06/2014 Office visit Mica Lr FARM HAND 12/15/2013 Office visit Adela PITTMANP 11/17/2013 Office visit Chelsea Rodríguez FARM HAND 11/17/2013 Office visit Adela AlexMarcus Cole GUN REPAIR CLERK 10/20/2013 Office visit Adela Cole GUN REPAIR CLERK 09/22/2013 Office visit Adela AlexMarcus Cole GUN REPAIR CLERK 08/30/2013 Office visit Chelsea Rodríguez FARM HAND 08/26/2013 Office visit Beti MMarcus Reyna FARM HAND 07/29/2013 Office visit Adela Cole GUN REPAIR CLERK 07/06/2013 [facility] Elmira Campbell MD 07/01/2013 Office visit Adela MMarcus Cole GUN REPAIR CLERK 06/06/2013 Office visit Adela M. Douglas GUN REPAIR CLERK 05/31/2013 Office visit Chelsea Rodríguez FARM HAND 05/11/2013 Office visit Adela AlexMarcus Cole GUN REPAIR CLERK 03/22/2013 Office visit Adela Cole GUN REPAIR CLERK 03/10/2013 Office visit Adela Manjit Douglas GUN REPAIR CLERK 03/04/2013 Office visit Adela Cole GUN REPAIR CLERK 03/02/2013 Office visit Odette Elam MD 02/22/2013 Office visit Adela Cole GUN REPAIR CLERK 01/28/2013 Office visit Chelsea Rodríguez FARM HAND 01/25/2013 Office visit Adela Cole GUN REPAIR CLERK 12/27/2012 Office visit Adela Cole GUN REPAIR CLERK 12/07/2012 Hospital Pablo Croft MD 11/24/2012 Office visit Pablo Croft MD 11/02/2012 Office visit Kylah Wright FARM HAND 11/02/2012 Office visit Mica Lr FARM HAND 10/05/2012 [facility] Pablo Croft MD 09/30/2012 Office visit Kylah Wright FARM HAND 09/01/2012 Office visit Kylah Wirght FARM HAND 07/21/2012 Office visit Odette Elam MD 06/16/2012 Office visit Pablo Croft MD 05/11/2012 [facility] Pablo Croft MD 04/28/2012 Office visit Pablo Croft MD 04/20/2012 Office visit Odette Elam MD 03/29/2012 Office visit Pablo Croft MD 03/16/2012 [facility] Pablo Croft MD 03/09/2012 [facility] Pablo Croft MD 02/24/2012 [facility] Pablo Croft MD 02/11/2012 Office visit Pablo Croft MD 01/28/2012 Office visit Pablo Croft MD 01/19/2012 Office visit Odette Elam MD 12/03/2011 Office visit Reji Bowens MD 11/12/2011 Office visit Alison Antoine APRN 10/28/2011 Procedures Reji Bowens MD 10/07/2011 Office visit Odette Elam MD 09/04/2011 Surgery Reji Bowens MD 08/15/2011 Surgery Reji Bowens MD 07/22/2011 [facility] Naveen Aguilar MD 07/22/2011 [facility] Reji Bowens MD 07/14/2011 Surgery Reji Bowens MD 06/26/2011 Office visit Odette Elam MD 06/24/2011 Office visit Reji Bowens MD 12/04/2010 [facility] Asha Church MD
[2018-02-14] MEDS ORDERED: KETOROLAC 60 MG/2 ML VIAL IM ONE (11:00)
[2018-02-14] MEDS ORDERED: diphenhydrAMINE 50 MG/ML INJ (BENADRYL) IM ONE (11:00)
[2018-02-14] MEDS ORDERED: PSEUDOEPHEDRINE HCL 30 MG (SUDAFED) TAB PO ONE (11:00)
--- OUTSIDE RECORDS SUMMARY | 2018-02-14 11:01 | XMS REPORT ---
Author Chelsea Soliz Organization [facility] Address [address] [place], [place] [address] Care Team Providers Care System Support Analyst Name Role Phone Chelsea Rodríguez PCP Unavailable Chelsea Rodríguez PreferredProvider Unavailable Allergies and Adverse Reactions Name Reaction Notes Keflex yeast infection does not want to take due to causes yeast infection Plan of Treatment Planned Activity Comments Planned Date Planned Time Plan/Goal Treadmill 06/22/2015 12:00 AM EKG (12-lead electrocardiogram) 06/21/2015 12:00 AM Urine Culture, [place] Count 06/11/2016 12:00 AM bilateral foot pain [...] (11)- 1 mg (42) oral tablets,dose pack 4/13/ 2015 10/04/2014 take as directed for 30 days Augmentin [...] 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 [...] 11/27/2015 12:00 AM Decadron, Per 1 Mg [facility]# [address]-65 Reviewed 11/27/2015 12:00 AM Depo-Medrol 40mg Reviewed [...] Returned 04/24/2016 12:00 AM Toradol 60 Mg [facility]#1680-8853-64 Reviewed 06/11/2016 12:00 AM Consult/Referral Reviewed 06/11/2016 2:41 PM URINALYSIS AUTO W/O SCOPE Reviewed 10/29/2011 12:00 AM CYSTOMETROGRAM W/VENEER DRIER TAILER&UP Reviewed 10/29/2011 12:00 AM ELECTRO-UROFLOWMETRY FIRST Reviewed 10/29/2011 12:00 AM INTRAABDOMINAL PRESSURE TEST Reviewed 11/12/2011 12:00 AM X-RAY URETHRA/BLADDER Reviewed 11/12/2011 12:00 AM X-RAY EXAM SI JOINTS 3/> VWS Reviewed 01/28/2012 12:00 AM MRI LUMBAR SPINE W/O DYE Reviewed 04/20/2012 12:00 AM THER/PROPH/DIAG INJ SC/IM Reviewed 04/20/2012 12:00 AM Depo-Medrol, Per 120 Mg [facility]#9206-2738-65 Reviewed 07/21/2012 12:00 AM THER/PROPH/DIAG INJ SC/IM Reviewed 07/21/2012 12:00 AM Depo-Medrol, Per 120 Mg [facility]#4107-8051-56 Reviewed 09/01/2012 12:00 AM Drug Screen (Non-Medicare) Reviewed 09/01/2012 12:00 AM DRAIN/INJ JOINT/BURSA W/O US Reviewed 09/01/2012 12:00 AM Kenalog, Per 10 Mg [facility]#7639-4072-43 Reviewed 11/02/2012 12:00 AM Norflex, Up to 60 Mg [facility]#91455-207-78 Reviewed 11/02/2012 12:00 AM INJ TRIGGER POINT 1/2 MUSCL Reviewed 11/02/2012 12:00 AM Bupivicaine, 30 ml [facility]#6563-8559-60 Reviewed 11/02/2012 12:00 AM THER/PROPH/DIAG INJ SC/IM Reviewed 11/02/2012 12:00 AM Norflex, Up to 60 Mg [facility]#36908-840-21 Reviewed 12/27/2012 12:00 AM COMPLETE CBC W/AUTO DIFF WBC Reviewed 12/27/2012 12:00 AM COMPREHEN METABOLIC PANEL Reviewed 12/27/2012 12:00 AM ASSAY THYROID STIM HORMONE Reviewed 12/27/2012 12:00 AM VITAMIN B-12 Reviewed 12/27/2012 12:00 AM ASSAY OF FERRITIN Reviewed 12/27/2012 12:00 AM ANTINUCLEAR ANTIBODIES Reviewed 12/27/2012 12:00 AM DNA ANTIBODY FOND [place] LAC Reviewed 12/27/2012 12:00 AM NUCLEAR ANTIGEN ANTIBODY [...] 12:00 AM Decadron, Per 1 Mg [facility]# [address]-95 Reviewed 05/31/2013 12:00 AM Depo-Medrol, Per 80 Mg [facility]#8796-4568-32 Reviewed 05/31/2013 12:00 AM THER/PROPH/DIAG INJ SC/IM Reviewed 06/06/2013 12:00 AM MUSCLE TEST 2 LIMBS Reviewed 06/06/2013 12:00 AM Nerve conduction studies with F-wave Reviewed 08/26/2013 12:00 AM MAMMOGRAM SCREENING Reviewed 08/26/2013 12:00 AM MAMMOGRAM SCREENING Reviewed 08/30/2013 12:00 AM THER/PROPH/DIAG INJ SC/IM Reviewed 08/30/2013 12:00 AM Decadron, Per 1 Mg [place]# [address]-87 Reviewed 08/30/2013 12:00 AM Depo-Medrol, Per 80 Mg [place]#4848-5883-92 Reviewed 11/17/2013 12:00 AM THER/PROPH/DIAG INJ SC/IM Reviewed 11/17/2013 12:00 AM Decadron, Per 1 Mg [place]# [address]-21 Reviewed 11/17/2013 12:00 AM Depo-Medrol 40mg Reviewed 01/06/2014 12:00 AM THER/PROPH/DIAG INJ SC/IM Reviewed 01/06/2014 12:00 AM Decadron, Per 1 Mg [place]# [address]-24 Reviewed 01/06/2014 12:00 AM Rocephin 1 gram [facility]#4409-6796-42 Reviewed 01/10/2014 12:00 AM OFFICE/OUTPATIENT VISIT EST [...] 12:00 AM Decadron, Per 1 Mg [facility]# [address]-35 Reviewed 10/12/2014 12:00 AM Depo-Medrol 40mg Reviewed [...] neg WBC Est Ur Ql Strip Small History Of Immunizations Name Date Admin [facility] Name Mf Code Trade Name Lot# Route Inj Vis Given Vis Pub CVX Influenza 03/02/2013 sanofi pasteur PMC Fluzone [id number] Intramuscular Left Deltoid 03/02/2013 12/17/2012 141 X 02/28/2014 Merck & Co., Inc. 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 Sep 01 2012 4:05PM Wrist [...] 1:26PM Muscle spasm Jun 11 2016 1:26PM Payers Insurance Name Company Name Plan Name Plan Number Policy Number Policy Group Number Start Date [employer] [place] [id number] N/A [employer] [place] [id number] Saturday, 2011 [employer] [place] [id number] N/A [employer] [place] [id number] Thursday, 2013 UMR UMR [id number] N/A [facility] [employer] [facility] [id number] N/A [employer] [place] [id number] N/A Res Care ResCare [id number] N/A [place] [employer] [place] [employer] [id number] N/A Res Care ResCare [id number] DOI [id number] May History of Encounters Visit Date Visit Type Provider 06/11/2016 Office visit Chelsea Rodríguez APRN 06/05/2016 Office visit Leonardo Cowan APRN 05/14/2016 Office visit Chelsea Rodríguez APRN 05/05/2016 Office visit Leonardo Cowan ACCOUNTANT MACHINE PROCESSING 04/24/2016 Office visit Chelsea Rodríguez APRN 04/07/2016 Office visit Chelsea Rodríguez APRN 03/04/2016 Office visit Chelsea Rodríguez ACCOUNTANT MACHINE PROCESSING 01/14/2016 Office visit Chelsea Rodríguez ACCOUNTANT MACHINE PROCESSING 01/09/2016 Office visit Leonardo Cowan ACCOUNTANT MACHINE PROCESSING 01/04/2016 Office visit Leonardo Cowan ACCOUNTANT MACHINE PROCESSING 11/27/2015 Office visit Chelsea Rodríguez ACCOUNTANT MACHINE PROCESSING 08/23/2015 Office visit Chelsea Rodríguez ACCOUNTANT MACHINE PROCESSING 07/19/2015 Office visit 07/19/2015 Office visit Chelsea Rodríguez ACCOUNTANT MACHINE PROCESSING 06/21/2015 Office visit Chelsea Rodríguez ACCOUNTANT MACHINE PROCESSING 05/03/2015 Nurse visit Adela Cole INDUSTRIAL REAL ESTATE AGENT 04/12/2015 Office visit Adela Cole INDUSTRIAL REAL ESTATE AGENT 03/23/2015 Office visit Chelsea Rodríguez ACCOUNTANT MACHINE PROCESSING 03/08/2015 Office visit Adela Cole INDUSTRIAL REAL ESTATE AGENT 02/14/2015 Office visit Leonardo Cowan ACCOUNTANT MACHINE PROCESSING 02/08/2015 Office visit Adela PITTMANP 02/07/2015 Office visit Leonardo Cowan ACCOUNTANT MACHINE PROCESSING 01/11/2015 Office visit Adela PITTMANP 12/28/2014 Office visit Chelsea Rodríguez ACCOUNTANT MACHINE PROCESSING 12/14/2014 Nurse visit Adela PITTMANP 11/23/2014 Nurse visit Adela PITTMANP 10/26/2014 Office visit Adela PITTMANP 10/12/2014 Office visit 10/12/2014 Office visit Chelsea Rodríguez ACCOUNTANT MACHINE PROCESSING 10/05/2014 Nurse visit Adela PITTMANP 09/07/2014 Office visit Adela PITTMANP 08/17/2014 Office visit 08/17/2014 Office visit 08/17/2014 Office visit Chelsea Rodríguez ACCOUNTANT MACHINE PROCESSING 08/14/2014 Office visit Adela PITTMANP 07/27/2014 Office visit Adela PITTMANP 2014 Office visit Adela PITTMANP 2014 Office visit Mica Lr ACCOUNTANT MACHINE PROCESSING 06/28/2014 Nurse visit Adela PITTMANP 05/31/2014 Office visit Adela PITTMANP 05/03/2014 Voided Adela PITTMANP 04/26/2014 Office visit Mica Lr ACCOUNTANT MACHINE PROCESSING 04/05/2014 Office visit Adela PITTMANP 03/10/2014 Office visit Adela PITTMANP 02/28/2014 Office visit Mica Lr ACCOUNTANT MACHINE PROCESSING 02/24/2014 Office visit Adela PITTMANP 02/06/2014 Office visit Adela PITTMANP 01/10/2014 Nurse visit Suzan Liang MD 01/06/2014 Office visit Mica Lr ACCOUNTANT MACHINE PROCESSING 12/15/2013 Office visit Adela Cole INDUSTRIAL REAL ESTATE AGENT 11/17/2013 Office visit Chelsea Rodríguez ACCOUNTANT MACHINE PROCESSING 11/17/2013 Office visit Adela Cole INDUSTRIAL REAL ESTATE AGENT 10/20/2013 Office visit Adela Cole INDUSTRIAL REAL ESTATE AGENT 09/22/2013 Office visit Adela Cole INDUSTRIAL REAL ESTATE AGENT 08/30/2013 Office visit Chelsea Rodríguez ACCOUNTANT MACHINE PROCESSING 08/26/2013 Office visit Beti Reyna ACCOUNTANT MACHINE PROCESSING 07/29/2013 Office visit Adela Cole INDUSTRIAL REAL ESTATE AGENT 07/06/[address] [facility] Elmira Campbell MD 07/01/2013 Office visit Adela Cole INDUSTRIAL REAL ESTATE AGENT 06/06/2013 Office visit Adela Cole INDUSTRIAL REAL ESTATE AGENT 05/31/2013 Office visit Chelsea Rodríguez ACCOUNTANT MACHINE PROCESSING 05/11/2013 Office visit Adela Cole INDUSTRIAL REAL ESTATE AGENT 03/22/2013 Office visit Adela Cole INDUSTRIAL REAL ESTATE AGENT 03/10/2013 Office visit Adela Cole INDUSTRIAL REAL ESTATE AGENT 03/04/2013 Office visit Adela Cole INDUSTRIAL REAL ESTATE AGENT 03/02/2013 Office visit Odette Elam MD 02/22/2013 Office visit Adela Cole INDUSTRIAL REAL ESTATE AGENT 01/28/2013 Office visit Chelsea Rodríguez ACCOUNTANT MACHINE PROCESSING 01/25/2013 Office visit Adela Cole INDUSTRIAL REAL ESTATE AGENT 12/27/2012 Office visit Adela PITTMANP 12/07/2012 [facility] Pablo Croft MD 11/24/2012 Office visit Pablo Croft MD 11/02/2012 Office visit Kylah Wright ACCOUNTANT MACHINE PROCESSING 11/02/2012 Office visit Mica Lr ACCOUNTANT MACHINE PROCESSING 10/05/2012 [facility] Pablo Croft MD 09/30/2012 Office visit Kylah Wright ACCOUNTANT MACHINE PROCESSING 09/01/2012 Office visit Kylah Wright ACCOUNTANT MACHINE PROCESSING 07/21/2012 Office visit Odette Elam MD 06/16/2012 [...]
--- OUTSIDE RECORDS SUMMARY | 2018-02-14 11:03 | XMS REPORT ---
Author Chelsea Soliz Organization [facility] Address [address] [place], [place] [address] Care Team Providers Care Wax Pourer Name Role Phone Chelsea Rodríguez PCP Unavailable [...] (75 mg) by oral route once daily cyclobenzaprine 10 mg oral tablet 10/22/2016 TAKE 1 TABLET BY MOUTH ONCE EVERY NIGHT AT BEDTIME alprazolam 0.5 mg oral tablet 11/20/2016 02/18/2017 [...] for 30 days due for refill 11/27/16 Name Start Date Expiration Date SIG Comments [...] route every 6 hours for 30 days Alecse 30-Day Starter Pack 300 mg (9)- 600 [...] then Take 1 tab x 2 days. 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 [...] 12:00 AM Decadron, Per 1 Mg [facility]# [address]-49 Reviewed 11/27/2015 12:00 AM Depo-Medrol 40mg Reviewed [...] Reviewed 04/24/2016 12:00 AM Toradol 60 Mg [facility]#1090-5282-43 Reviewed 06/11/2016 12:00 AM Consult/Referral Reviewed 06/11/2016 2:41 PM URINALYSIS AUTO W/O SCOPE Reviewed 06/11/2016 12:00 AM URINE CULTURE/COLONY COUNT Reviewed 06/13/2016 12:00 AM Splint, prefabricated, wrist or ankle Reviewed 07/31/2016 12:00 AM LIPID PANEL Reviewed 07/31/2016 12:00 AM MAMMOGRAPHY SCREENING, DIGITAL Reviewed 10/29/2011 12:00 AM CYSTOMETROGRAM W/HOUSEKEEPER/LAUNDRY ASSISTANT&UP Reviewed 10/29/2011 12:00 AM ELECTRO-UROFLOWMETRY FIRST Reviewed 10/29/2011 12:00 AM INTRAABDOMINAL PRESSURE TEST Reviewed 11/12/2011 12:00 AM X-RAY URETHRA/BLADDER Reviewed 11/12/2011 12:00 AM X-RAY EXAM SI JOINTS 3/> VWS Reviewed 01/28/2012 12:00 AM MRI LUMBAR SPINE W/O DYE Reviewed 04/20/2012 12:00 AM THER/PROPH/DIAG INJ SC/IM Reviewed 04/20/2012 12:00 AM Depo-Medrol, Per 120 Mg [facility]#9352-8749-81 Reviewed 07/21/2012 12:00 AM THER/PROPH/DIAG INJ SC/IM Reviewed 07/21/2012 12:00 AM Depo-Medrol, Per 120 Mg [facility]#8827-1333-19 Reviewed 09/01/2012 12:00 AM Drug Screen (Non-Medicare) Reviewed 09/01/2012 12:00 AM DRAIN/INJ JOINT/BURSA W/O US Reviewed 09/01/2012 12:00 AM Kenalog, Per 10 Mg [facility]#2417-6209-55 Reviewed 11/02/2012 12:00 AM Norflex, Up to 60 Mg [facility]#25205-252-83 Reviewed 11/02/2012 12:00 AM INJ TRIGGER POINT 1/2 MUSCL Reviewed 11/02/2012 12:00 AM Bupivicaine, 30 ml [facility]#8329-6500-89 Reviewed 11/02/2012 12:00 AM THER/PROPH/DIAG INJ SC/IM Reviewed 11/02/2012 12:00 AM Norflex, Up to 60 Mg [facility]#47778-949-20 Reviewed 12/27/2012 12:00 AM COMPLETE CBC W/AUTO DIFF WBC Reviewed 12/27/2012 12:00 AM COMPREHEN METABOLIC PANEL Reviewed 12/27/2012 12:00 AM ASSAY THYROID STIM HORMONE Reviewed 12/27/2012 12:00 AM VITAMIN B-12 Reviewed 12/27/2012 12:00 AM ASSAY OF FERRITIN Reviewed 12/27/2012 12:00 AM ANTINUCLEAR ANTIBODIES Reviewed 12/27/2012 12:00 AM DNA ANTIBODY KNIK Reviewed 12/27/2012 12:00 AM NUCLEAR ANTIGEN ANTIBODY [...] 12:00 AM Decadron, Per 1 Mg ND# [address]-76 Reviewed 05/31/2013 12:00 AM Depo-Medrol, Per 80 Mg ND#0688-2678-20 Reviewed 05/31/2013 12:00 AM THER/PROPH/DIAG INJ SC/IM Reviewed 06/06/2013 12:00 AM MUSCLE TEST 2 LIMBS Reviewed 06/06/2013 12:00 AM Nerve conduction studies with F-wave Reviewed 08/26/2013 12:00 AM MAMMOGRAM SCREENING Reviewed 08/26/2013 12:00 AM MAMMOGRAM SCREENING Reviewed 08/30/2013 12:00 AM THER/PROPH/DIAG INJ SC/IM Reviewed 08/30/2013 12:00 AM Decadron, Per 1 Mg ND# [address]-99 Reviewed 08/30/2013 12:00 AM Depo-Medrol, Per 80 Mg ND#9305-8511-04 Reviewed 11/17/2013 12:00 AM THER/PROPH/DIAG INJ SC/IM Reviewed 11/17/2013 12:00 AM Decadron, Per 1 Mg [facility]# [address]-57 Reviewed 11/17/2013 12:00 AM Depo-Medrol 40mg Reviewed 01/06/2014 12:00 AM THER/PROPH/DIAG INJ SC/IM Reviewed 01/06/2014 12:00 AM Decadron, Per 1 Mg [facility]# [address]-63 Reviewed 01/06/2014 12:00 AM Rocephin 1 gram ND#6525-6638-06 Reviewed 01/10/2014 12:00 AM OFFICE/OUTPATIENT VISIT EST [...] 12:00 AM Decadron, Per 1 Mg [facility]# [address]-33 Reviewed 10/12/2014 12:00 AM Depo-Medrol 40mg Reviewed [...] CVX Influenza 03/02/2013 sanofi pasteur PMC Fluzone [id number] Intramuscular Left Deltoid 03/02/2013 12/17/2012 141 X 02/28/2014 Merck & Co., Inc. MSD Pneumovax 23 [id number] Intramuscular Left Deltoid 02/28/2014 02/27/2009 33 Influenza 03/23/2015 sanofi pasteur PMC Fluzone Quadrivalent [id number] Intramuscular Right Deltoid 03/23/2015 12/29/2014 140 Influenza 03/04/2016 sanofi pasteur PMC Fluzone Quadrivalent UI [id number] [id number] Intramuscular Left Deltoid 03/04/2016 12/29/2014 141 History of Past Illness Name Date of Onset Comments Anxiety Arthritis unspecified Diverticulitis Of Colon Sacroiliitis Abnormal Uterine Bleeding 06/26/2011 Endometrial hyperplasia, unspecified 06/26/2011 Pelvic Pain 06/26/2011 Family history of breast cancer 06/26/2011 Kidney Calculus Constipation Depression and anxiety Back Pain Allergic rhinitis 11/17/2013 Depression 03/27/2015 Anxiety 08/17/2014 [...] SI joint pain Sep 01 2012 3:06PM custodial medication use Sep 01 2012 4:05PM Wrist [...] 3 2012 3:35PM Anxiety Disorder Sep 6 2013 8:51AM [...] SI joint pain b 2013 9:09AM Neuralgia b 2013 9:09AM Pain [...] Allergic conjunctivitis, bilateral Aug 29 2016 10:37AM Payers Insurance Name Company Name Plan Name Plan Number Policy Number Policy Group Number Start Date [employer] [place] [id number] N/A [employer] [place] [id number] Saturday, 2011 [employer] [place] [id number] N/A [employer] [place] [id number] Thursday, 2013 UMR UMR [id number] N/A [facility] [employer] [facility] [id number] N/A [employer] [place] [id number] N/A Res Care [employer]Care [id number] N/A [employer] [id number] N/A [employer] [id number] DOI [id number] May [employer] [place] [id number] N/A History of Encounters Visit Date Visit Type Provider 11/20/2016 Office visit Chelsea Rodríguez REHABILITATION PSYCHOLOGIST 08/29/2016 Office visit Chelsea Rodríguez REHABILITATION PSYCHOLOGIST 07/31/2016 Office visit Chelsea Rodríguez REHABILITATION PSYCHOLOGIST 06/11/2016 Office visit Chelsea Rodríguez REHABILITATION PSYCHOLOGIST 06/05/2016 Office visit Leonardo Cowan REHABILITATION PSYCHOLOGIST 05/14/2016 Office visit Chelsea Rodríguez REHABILITATION PSYCHOLOGIST 05/05/2016 Office visit Leonardo Cowan REHABILITATION PSYCHOLOGIST 04/24/2016 Office visit Chelsea Rodríguez REHABILITATION PSYCHOLOGIST 04/07/2016 Office visit Chelsea Rodríguez REHABILITATION PSYCHOLOGIST 03/04/2016 Office visit Chelsea Rodríguez REHABILITATION PSYCHOLOGIST 01/14/2016 Office visit Chelsea Rodríguez REHABILITATION PSYCHOLOGIST 01/09/2016 Office visit Leonardo Cowan REHABILITATION PSYCHOLOGIST 01/04/2016 Office visit Leonardo Cowan REHABILITATION PSYCHOLOGIST 11/27/2015 Office visit Chelsea Rodríguez REHABILITATION PSYCHOLOGIST 08/23/2015 Office visit Chelsea Rodríguez REHABILITATION PSYCHOLOGIST 07/19/2015 Office visit 07/19/2015 Office visit Chelsea Rodríguez REHABILITATION PSYCHOLOGIST 06/21/2015 Office visit Chelsea Rodríguez REHABILITATION PSYCHOLOGIST 05/03/2015 Nurse visit Adela PITTMANP 04/12/2015 Office visit Adela PITTMANP 03/23/2015 Office visit Chelsea Rodríguez REHABILITATION PSYCHOLOGIST 03/08/2015 Office visit Adela PITTMANP 02/14/2015 Office visit Leonardo Cowan REHABILITATION PSYCHOLOGIST 02/08/2015 Office visit Adela PITTMANP 02/07/2015 Office visit Leonardo Cowan REHABILITATION PSYCHOLOGIST 01/11/2015 Office visit Adela PITTMANP 12/28/2014 Office visit Chelsea Rodríguez REHABILITATION PSYCHOLOGIST 12/14/2014 Nurse visit Adela PORTER 11/23/2014 Nurse visit Adela PITTMANP 10/26/2014 Office visit Adela PITTMANP 10/12/2014 Office visit 10/12/2014 Office visit Chelsea Rodríguez REHABILITATION PSYCHOLOGIST 10/05/2014 Nurse visit Adela PITTMANP 09/07/2014 Office visit Adela PITTMANP 08/17/2014 Office visit 08/17/2014 Office visit 08/17/2014 Office visit Chelsea Rodríguez REHABILITATION PSYCHOLOGIST 08/14/2014 Office visit Adela PITTMANP 07/27/2014 Office visit Adela PITTMANP 2014 Office visit Adela PITTMANP 2014 Office visit Mica Lr REHABILITATION PSYCHOLOGIST 06/28/2014 Nurse visit Adela PITTMANP 05/31/2014 Office visit Adela PITTMANP 05/03/2014 Voided Adela PITTMANP 04/26/2014 Office visit Mica Lr REHABILITATION PSYCHOLOGIST 04/05/2014 Office visit Adela JohnsonMarcus Douglas DUAL RATE SUPERVISOR 03/10/2014 Office visit Adela Cole DUAL RATE SUPERVISOR 02/28/2014 Office visit Mica Kareem Lr REHABILITATION PSYCHOLOGIST 02/24/2014 Office visit Adela M. Douglas DUAL RATE SUPERVISOR 02/06/2014 Office visit Adela Manjit Douglas DUAL RATE SUPERVISOR 01/10/2014 Nurse visit Suzan Liang MD 01/06/2014 Office visit Mica Lr REHABILITATION PSYCHOLOGIST 12/15/2013 Office visit Adela Cole DUAL RATE SUPERVISOR 11/17/2013 Office visit Chelsea Rodríguez REHABILITATION PSYCHOLOGIST 11/17/2013 Office visit Adela Manjit Douglas DUAL RATE SUPERVISOR 10/20/2013 Office visit Adela Cole DUAL RATE SUPERVISOR 09/22/2013 Office visit Adela Cole DUAL RATE SUPERVISOR 08/30/2013 Office visit Chelsea Rodríguez REHABILITATION PSYCHOLOGIST 08/26/2013 Office visit Beti Reyna REHABILITATION PSYCHOLOGIST 07/29/2013 Office visit Adela Cole DUAL RATE SUPERVISOR 07/06/2013 [facility] Elmira Campbell MD 07/01/2013 Office visit Adela Cole DUAL RATE SUPERVISOR 06/06/2013 Office visit Adela AlexMarcus Cole DUAL RATE SUPERVISOR 05/31/2013 Office visit Chelsea Marcos REHABILITATION PSYCHOLOGIST 05/11/2013 Office visit Adela Cole DUAL RATE SUPERVISOR 03/22/2013 Office visit Adela Cole DUAL RATE SUPERVISOR 03/10/2013 Office visit Adela Cole DUAL RATE SUPERVISOR 03/04/2013 Office visit Adela PITTMANP 03/02/2013 Office visit Odette Elam MD 02/22/2013 Office visit Adela PITTMANP 01/28/2013 Office visit Chelsea Rodríguez REHABILITATION PSYCHOLOGIST 01/25/2013 Office visit Adela PITTMANP 12/27/2012 Office visit Adela PITTMANP 12/07/2012 [facility] Pablo Croft MD 11/24/2012 Office visit Pablo Croft MD 11/02/2012 Office visit Kylah Wright REHABILITATION PSYCHOLOGIST 11/02/2012 Office visit Mica Lr REHABILITATION PSYCHOLOGIST 10/05/2012 [facility] Pablo Croft MD 09/30/2012 Office visit Kylah Wright REHABILITATION PSYCHOLOGIST 09/01/2012 Office visit Kylah Wright REHABILITATION PSYCHOLOGIST 07/21/2012 Office visit Odette Elam MD 06/16/2012 Office visit Pablo Croft MD 05/11/2012 [facility] Pablo Croft MD 04/28/2012 Office visit Pablo Croft MD 04/20/2012 Office visit Odette Elam MD 03/29/2012 Office visit Pablo Croft MD 03/16/2012 [facility] Pablo Croft MD 03/09/2012 [facility] Pablo Croft MD 02/24/2012 [facility] Pablo Croft MD 02/11/2012 Office visit Pablo Croft MD 01/28/2012 Office visit Pablo Croft MD 01/19/2012 Office visit Odette Elam MD 12/03/2011 Office visit Reji Bowens MD 11/12/2011 Office visit Alison Antoine APRN 10/28/2011 Procedures Reji Bowens MD 10/07/2011 Office visit Odette Elam MD 09/04/2011 Surgery Reji Bowens MD 08/15/2011 Surgery Reji Bowens MD 07/22/2011 [facility] Naveen Aguilar MD 07/22/2011 [facility] Reji Bowens MD 07/14/2011 Surgery Reji Bowens MD 06/26/2011 Office visit Odette Ealm MD 06/24/2011 Office visit Reji Bowens MD 12/04/2010 [facility] Asha Church MD
--- OUTSIDE RECORDS SUMMARY | 2018-02-14 11:06 | XMS REPORT ---
Author Chelsea Soliz Organization [facility] Address [address] [place], [place] [address] Care Team Providers Care Fundraising Assistant Name Role Phone Chelsea Rodríguez PCP Unavailable Chelsea Rodríguez PreferredProvider Unavailable Allergies and Adverse Reactions Name Reaction Notes Keflex yeast infection does not want to take due to causes yeast infection Plan of Treatment Planned Activity Comments Planned Date Planned Time Plan/Goal Treadmill 06/22/2015 12:00 AM EKG (12-lead electrocardiogram) 06/21/2015 12:00 AM bilateral foot pain 06/24/2016 1:00 [...] not to fill at pharmacy until 06/29/16 Name Start Date Expiration Date SIG Comments [...] then Take 1 tab x 2 days. [place] 10-325 mg oral tablet 05/03/2015 06/02/2015 take [...] of waking. 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 [...] 11/27/2015 12:00 AM Decadron, Per 1 Mg [facility]# [address]-15 Reviewed 11/27/2015 12:00 AM Depo-Medrol 40mg Reviewed [...] Returned 04/24/2016 12:00 AM Toradol 60 Mg [facility]#3068-8567-14 Reviewed 06/11/2016 12:00 AM Consult/Referral Reviewed 06/11/2016 2:41 PM URINALYSIS AUTO W/O SCOPE Reviewed 06/11/2016 12:00 AM URINE CULTURE/COLONY COUNT Returned 10/29/2011 12:00 AM CYSTOMETROGRAM W/MARINE DESIGNER&UP Reviewed 10/29/2011 12:00 AM ELECTRO-UROFLOWMETRY FIRST Reviewed 10/29/2011 12:00 AM INTRAABDOMINAL PRESSURE TEST Reviewed 11/12/2011 12:00 AM X-RAY URETHRA/BLADDER Reviewed 11/12/2011 12:00 AM X-RAY EXAM SI JOINTS 3/> VWS Reviewed 01/28/2012 12:00 AM MRI LUMBAR SPINE W/O DYE Reviewed 04/20/2012 12:00 AM THER/PROPH/DIAG INJ SC/IM Reviewed 04/20/2012 12:00 AM Depo-Medrol, Per 120 Mg [facility]#2170-7208-36 Reviewed 07/21/2012 12:00 AM THER/PROPH/DIAG INJ SC/IM Reviewed 07/21/2012 12:00 AM Depo-Medrol, Per 120 Mg [facility]#2306-4738-04 Reviewed 09/01/2012 12:00 AM Drug Screen (Non-Medicare) Reviewed 09/01/2012 12:00 AM DRAIN/INJ JOINT/BURSA W/O US Reviewed 09/01/2012 12:00 AM Kenalog, Per 10 Mg [facility]#7235-5715-01 Reviewed 11/02/2012 12:00 AM Norflex, Up to 60 Mg [facility]#57088-104-54 Reviewed 11/02/2012 12:00 AM INJ TRIGGER POINT 1/2 MUSCL Reviewed 11/02/2012 12:00 AM Bupivicaine, 30 ml [facility]#3807-9663-30 Reviewed 11/02/2012 12:00 AM THER/PROPH/DIAG INJ SC/IM Reviewed 11/02/2012 12:00 AM Norflex, Up to 60 Mg [facility]#91220-836-70 Reviewed 12/27/2012 12:00 AM COMPLETE CBC W/AUTO DIFF WBC Reviewed 12/27/2012 12:00 AM COMPREHEN METABOLIC PANEL Reviewed 12/27/2012 12:00 AM ASSAY THYROID STIM HORMONE Reviewed 12/27/2012 12:00 AM VITAMIN B-12 Reviewed 12/27/2012 12:00 AM ASSAY OF FERRITIN Reviewed 12/27/2012 12:00 AM ANTINUCLEAR ANTIBODIES Reviewed 12/27/2012 12:00 AM DNA ANTIBODY [place] Reviewed 12/27/2012 12:00 AM NUCLEAR ANTIGEN ANTIBODY [...] 05/31/2013 12:00 AM Decadron, Per 1 Mg [facility]# [address]-15 Reviewed 05/31/2013 12:00 AM Depo-Medrol, Per 80 Mg [facility]#9109-7445-73 Reviewed 05/31/2013 12:00 AM THER/PROPH/DIAG INJ SC/IM Reviewed 06/06/2013 12:00 AM MUSCLE TEST 2 LIMBS Reviewed 06/06/2013 12:00 AM Nerve conduction studies with F-wave Reviewed 08/26/2013 12:00 AM MAMMOGRAM SCREENING Reviewed 08/26/2013 12:00 AM MAMMOGRAM SCREENING Reviewed 08/30/2013 12:00 AM THER/PROPH/DIAG INJ SC/IM Reviewed 08/30/2013 12:00 AM Decadron, Per 1 Mg [facility]# [address]-41 Reviewed 08/30/2013 12:00 AM Depo-Medrol, Per 80 Mg ND#8764-9908-52 Reviewed 11/17/2013 12:00 AM THER/PROPH/DIAG INJ SC/IM Reviewed 11/17/2013 12:00 AM Decadron, Per 1 Mg [facility]# [address]-73 Reviewed 11/17/2013 12:00 AM Depo-Medrol 40mg Reviewed 01/06/2014 12:00 AM THER/PROPH/DIAG INJ SC/IM Reviewed 01/06/2014 12:00 AM Decadron, Per 1 Mg [facility]# [address]-80 Reviewed 01/06/2014 12:00 AM Rocephin 1 gram [facility]#1245-6300-91 Reviewed 01/10/2014 12:00 AM OFFICE/OUTPATIENT VISIT EST [...] 10/12/2014 12:00 AM Decadron, Per 1 Mg [facility]# [address]-56 Reviewed 10/12/2014 12:00 AM Depo-Medrol 40mg Reviewed [...] Small History Of Immunizations Name Date Admin [facility] Name Mf Code Trade Name Lot# Route Inj Vis Given Vis Pub CVX Influenza 03/02/2013 sanofi pasteur PMC Fluzone [id number] Intramuscular Left Deltoid 03/02/2013 12/17/2012 141 X 02/28/2014 [employer]ck & Co[employer] MSD Pneumovax 23 [id number] Intramuscular Left Deltoid 02/28/2014 02/27/2009 33 Influenza 03/23/2015 sanofi pasteur PMC Fluzone Quadrivalent [id number] Intramuscular Right Deltoid 03/23/2015 12/29/2014 140 Influenza [...] SI joint pain Sep 01 2012 3:06PM nursing home medication use Sep 01 2012 4:05PM Wrist [...] for breast cancer Jul 03 2016 3:52PM Payers Insurance Name Company Name Plan Name Plan Number Policy Number Policy Group Number Start Date [employer] [place] [id number] N/A [employer] [place] [id number] Saturday, 2011 [employer] [place] [id number] N/A [employer] [place] [id number] Thursday, 2013 [facility] UMR [id number] N/A [facility] [employer] [facility] [id number] N/A [employer] [place] [id number] N/A Res Care ResCare [id number] N/A [place] [employer] [id number] N/A [employer] [id number] DOI [id number] May History of Encounters Visit Date Visit Type Provider 06/11/2016 Office visit Chelsea Rodríguez APRN 06/05/2016 Office visit Leonardo Cowan APRN 05/14/2016 Office visit Chelsea Rodríguez APRN 05/05/2016 Office visit Leonardo Cowan APRN 04/24/2016 Office visit Chelsea Rodríguez INGOT BUGGY OPERATOR 04/07/2016 Office visit Chelsea Rodríguez INGOT BUGGY OPERATOR 03/04/2016 Office visit Chelsea Rodríguez INGOT BUGGY OPERATOR 01/14/2016 Office visit Chelsea Rodríguez INGOT BUGGY OPERATOR 01/09/2016 Office visit Leonardo Cowan INGOT BUGGY OPERATOR 01/04/2016 Office visit Leonardo Cowan INGOT BUGGY OPERATOR 11/27/2015 Office visit Chelsea Rodríguez INGOT BUGGY OPERATOR 08/23/2015 Office visit Chelsea Rodríguez INGOT BUGGY OPERATOR 07/19/2015 Office visit 07/19/2015 Office visit Chelsea Rodríguez INGOT BUGGY OPERATOR 06/21/2015 Office visit Chelsea Rodríguez INGOT BUGGY OPERATOR 05/03/2015 Nurse visit Adela Cole WHARF TENDER 04/12/2015 Office visit Adela Cole WHARF TENDER 03/23/2015 Office visit Chelsea Rodríguez INGOT BUGGY OPERATOR 03/08/2015 Office visit Adela Cole WHARF TENDER 02/14/2015 Office visit Leonardo Pazran INGOT BUGGY OPERATOR 02/08/2015 Office visit Adela PITTMANP 02/07/2015 Office visit Leonardo Cowan INGOT BUGGY OPERATOR 01/11/2015 Office visit Adela PITTMANP 12/28/2014 Office visit Chelsea Rodríguez INGOT BUGGY OPERATOR 12/14/2014 Nurse visit Adela PITTMANP 11/23/2014 Nurse visit Adela PITTMANP 10/26/2014 Office visit Adela PITTMANP 10/12/2014 Office visit 10/12/2014 Office visit Chelsea Rodríguez INGOT BUGGY OPERATOR 10/05/2014 Nurse visit Adela PITTMANP 09/07/2014 Office visit Adela PITTMANP 08/17/2014 Office visit 08/17/2014 Office visit 08/17/2014 Office visit Chelsea Rodríguez INGOT BUGGY OPERATOR 08/14/2014 Office visit Adela PITTMANP 07/27/2014 Office visit Adela PITTMANP 2014 Office visit Adela PITTMANP 2014 Office visit Mica Lr INGOT BUGGY OPERATOR 06/28/2014 Nurse visit Adela PITTMANP 05/31/2014 Office visit Adela PITTMANP 05/03/2014 Voided Adela PITTMANP 04/26/2014 Office visit Mica Lr INGOT BUGGY OPERATOR 04/05/2014 Office visit Adela PITTMANP 03/10/2014 Office visit Adela PITTMANP 02/28/2014 Office visit Mica Lr INGOT BUGGY OPERATOR 02/24/2014 Office visit Adela Cole WHARF TENDER 02/06/2014 Office visit Adela Cole WHARF TENDER 01/10/2014 Nurse visit Suzan Liang MD 01/06/2014 Office visit Mica Lr INGOT BUGGY OPERATOR 12/15/2013 Office visit Adela AlexMarcus Cole WHARF TENDER 11/17/2013 Office visit Chelsea Rodríguez INGOT BUGGY OPERATOR 11/17/2013 Office visit Adela JohnsonMarcus Douglas WHARF TENDER 10/20/2013 Office visit Adela Cole WHARF TENDER 09/22/2013 Office visit Adela Cole WHARF TENDER 08/30/2013 Office visit Chelsea Rodríguez INGOT BUGGY OPERATOR 08/26/2013 Office visit Beti Reyna INGOT BUGGY OPERATOR 07/29/2013 Office visit Adela Cole WHARF TENDER 07/06/2013 [facility] Elmira Campbell MD 07/01/2013 Office visit Adela AlexMarcus Cole WHARF TENDER 06/06/2013 Office visit Adela AlexMarcus Cole WHARF TENDER 05/31/2013 Office visit Chelsea Marcos INGOT BUGGY OPERATOR 05/11/2013 Office visit Adela Cole WHARF TENDER 03/22/2013 Office visit Adela Cole WHARF TENDER 03/10/2013 Office visit Adela Cole WHARF TENDER 03/04/2013 Office visit Adela Cole WHARF TENDER 03/02/2013 Office visit Odette Elam MD 02/22/2013 Office visit Adela PITTMANP 01/28/2013 Office visit Chelsea Rodríguez INGOT BUGGY OPERATOR 01/25/2013 Office visit Adela PITTMANP 12/27/2012 Office visit Adela Cole WHARF TENDER 12/07/2012 [facility] Pablo Croft MD 11/24/2012 Office visit Pablo Croft MD 11/02/2012 Office visit Kylah Wright INGOT BUGGY OPERATOR 11/02/2012 Office visit Mica Lr INGOT BUGGY OPERATOR 10/05/2012 [facility] Pablo Croft MD 09/30/2012 Office visit Kylah Wright INGOT BUGGY OPERATOR 09/01/2012 Office visit Kylah Wright INGOT BUGGY OPERATOR 07/21/2012 Office visit Odette Elam MD 06/16/2012 Office visit Pablo Croft MD 05/11/2012 [facility] Pablo Croft MD 04/28/2012 Office visit Pablo Croft MD 04/20/2012 Office visit Odette Elam MD 03/29/2012 Office visit Pablo Croft MD 03/16/2012 [facility] Pablo Corft MD 03/09/2012 [facility] Pablo [...]
--- OUTSIDE RECORDS SUMMARY | 2018-02-14 11:08 | XMS REPORT ---
Author Author Chelsea Rodríguez Organization [facility] Address [address] [place], [place] [id number] Care Team Providers Care Corporate Safety Coordinator Name Role Phone Chelsea Rodríguez PCP Chelsea [...] then Take 1 tab x 2 days. 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 [...] 11/27/2015 12:00 AM Decadron, Per 1 Mg [facility]# [address]-58 Reviewed 11/27/2015 12:00 AM Depo-Medrol 40mg Reviewed [...] Reviewed 04/24/2016 12:00 AM Toradol 60 Mg [facility]#9627-0438-56 Reviewed 06/11/2016 12:00 AM Consult/Referral Reviewed 06/11/2016 2:41 PM URINALYSIS AUTO W/O SCOPE Reviewed 06/11/2016 12:00 AM URINE CULTURE/COLONY COUNT Reviewed 06/13/2016 12:00 AM Splint, prefabricated, wrist or ankle Reviewed 07/31/2016 12:00 AM LIPID PANEL Reviewed 07/31/2016 12:00 AM MAMMOGRAPHY SCREENING, DIGITAL Reviewed 10/29/2011 12:00 AM CYSTOMETROGRAM W/PRINTED CIRCUIT BOARD PCB DRAFTSMAN&UP Reviewed 10/29/2011 12:00 AM ELECTRO-UROFLOWMETRY FIRST Reviewed [...] 04/20/2012 12:00 AM Depo-Medrol, Per 120 Mg [facility]#7512-9581-33 Reviewed 07/21/2012 12:00 AM THER/PROPH/DIAG INJ SC/IM Reviewed 07/21/2012 12:00 AM Depo-Medrol, Per 120 Mg [facility]#2731-2312-91 Reviewed 09/01/2012 12:00 AM Drug Screen (Non-Medicare) Reviewed 09/01/2012 12:00 AM DRAIN/INJ JOINT/BURSA W/O US Reviewed 09/01/2012 12:00 AM Kenalog, Per 10 Mg [facility]#5162-3754-99 Reviewed 11/02/2012 12:00 AM Norflex, Up to 60 Mg [facility]#38993-250-53 Reviewed 11/02/2012 12:00 AM INJ TRIGGER POINT 1/2 MUSCL Reviewed 11/02/2012 12:00 AM Bupivicaine, 30 ml [facility]#9497-0745-91 Reviewed 11/02/2012 12:00 AM THER/PROPH/DIAG INJ SC/IM Reviewed 11/02/2012 12:00 AM Norflex, Up to 60 Mg [facility]#89818-525-73 Reviewed 12/27/2012 12:00 AM COMPLETE CBC W/AUTO DIFF WBC Reviewed 12/27/2012 12:00 AM COMPREHEN METABOLIC PANEL Reviewed 12/27/2012 12:00 AM ASSAY THYROID STIM HORMONE Reviewed 12/27/2012 12:00 AM VITAMIN B-12 Reviewed 12/27/2012 12:00 AM ASSAY OF FERRITIN Reviewed 12/27/2012 12:00 AM ANTINUCLEAR ANTIBODIES Reviewed 12/27/2012 12:00 AM DNA ANTIBODY [place] Reviewed 12/27/2012 12:00 AM NUCLEAR ANTIGEN ANTIBODY [...] 12:00 AM Decadron, Per 1 Mg [place]# [address]-04 Reviewed 05/31/2013 12:00 AM Depo-Medrol, Per 80 Mg ND#8967-5029-59 Reviewed 05/31/2013 12:00 AM THER/PROPH/DIAG INJ SC/IM Reviewed 06/06/2013 12:00 AM MUSCLE TEST 2 LIMBS Reviewed 06/06/2013 12:00 AM Nerve conduction studies with F-wave Reviewed 08/26/2013 12:00 AM MAMMOGRAM SCREENING Reviewed 08/26/2013 12:00 AM MAMMOGRAM SCREENING Reviewed 08/30/2013 12:00 AM THER/PROPH/DIAG INJ SC/IM Reviewed 08/30/2013 12:00 AM Decadron, Per 1 Mg [facility]# [address]-73 Reviewed 08/30/2013 12:00 AM Depo-Medrol, Per 80 Mg ND#2373-0722-53 Reviewed 11/17/2013 12:00 AM THER/PROPH/DIAG INJ SC/IM Reviewed 11/17/2013 12:00 AM Decadron, Per 1 Mg [facility]# [address]-50 Reviewed 11/17/2013 12:00 AM Depo-Medrol 40mg Reviewed 01/06/2014 12:00 AM THER/PROPH/DIAG INJ SC/IM Reviewed 01/06/2014 12:00 AM Decadron, Per 1 Mg [facility]# [address]-53 Reviewed 01/06/2014 12:00 AM Rocephin 1 gram ND#0524-8226-35 Reviewed 01/10/2014 12:00 AM OFFICE/OUTPATIENT VISIT EST [...] 10/12/2014 12:00 AM Decadron, Per 1 Mg [facility]# [address]-19 Reviewed 10/12/2014 12:00 AM Depo-Medrol 40mg Reviewed [...] CVX Influenza 03/02/2013 sanofi pasteur PMC Fluzone [id number] Intramuscular Left Deltoid 03/02/2013 12/17/2012 141 X 02/28/2014 Merck & Co., Inc. MSD Pneumovax 23 [id number] Intramuscular Left Deltoid 02/28/2014 02/27/2009 33 Influenza 03/23/2015 sanofi pasteur PMC Fluzone Quadrivalent [id number] Intramuscular Right Deltoid 03/23/2015 12/29/2014 140 Influenza 03/04/2016 sanofi pasteur PMC Fluzone Quadrivalent UI 684 AE Intramuscular Left Deltoid 03/04/2016 12/29/2014 141 Tdap 02/20/2017 Datezr SKB BOOSTRIX [id number] Intramuscular Right Arm 02/20/2017 07/18/2014 115 Influenza 02/20/2017 [facility] Fluzone Quadrivalent [id number] Intramuscular Left Arm 02/20/2017 12/29/2014 150 History [...] Pain Feb 2011 9:38AM Diverticulosis Of Colon Jun 26 2011 9:38AM Pelvic Pain b 2011 11:14AM [...] for breast cancer Jun 17 2017 1:59PM Payers Insurance Name Company Name Plan Name Plan Number Policy Number Policy Group Number Start Date [employer] [place] [id number] N/A [employer] [place] [id number] Saturday, 2011 [employer] [place] [id number] N/A [employer] [place] [id number] Thursday, 2013 [employer] [id number] N/A [employer]ums [id number] N/A [employer] [place] [id number] N/A Res Care ResCare [id number] N/A [place] [employer] [place] [employer] [id number] N/A Res Care ResCare [id number] DOI [id number] May [employer] [place] [id number] N/A History of Encounters Visit Date Visit Type Provider 05/22/2017 Office visit Chelsea Rodríguez BALLROOM DANCER 02/20/2017 Office visit Chelsea Rodríguez BALLROOM DANCER 02/10/2017 Office visit Jeremy West DO 01/31/2017 Office visit Dimitri Beebe NP 11/20/2016 Office visit Chelsea Rodríguez BALLROOM DANCER 08/29/2016 Office visit Chelsea Rodríguez BALLROOM DANCER 07/31/2016 Office visit Chelsea Rodríguez BALLROOM DANCER 06/11/2016 Office visit Chelsea Rodríguez BALLROOM DANCER 06/05/2016 Office visit Leonardo Cowan BALLROOM DANCER 05/14/2016 Office visit Chelsea Rodríguez BALLROOM DANCER 05/05/2016 Office visit Leonardo Cowan BALLROOM DANCER 04/24/2016 Office visit Chelsea Rodríguez BALLROOM DANCER 04/07/2016 Office visit Chelsea Rodríguez BALLROOM DANCER 03/04/2016 Office visit Chelsea Rodríguez BALLROOM DANCER 01/14/2016 Office visit Chelsea Rodríguez BALLROOM DANCER 01/09/2016 Office visit Leonardo Cowan BALLROOM DANCER 01/04/2016 Office visit Leonardo Cowan BALLROOM DANCER 11/27/2015 Office visit Chelsea Rodríguez BALLROOM DANCER 08/23/2015 Office visit Chelsea Rodríguez BALLROOM DANCER 07/19/2015 Office visit 07/19/2015 Office visit Chelsea Rodríguez BALLROOM DANCER 06/21/2015 Office visit Chelsea Rodríguez BALLROOM DANCER 05/03/2015 Nurse visit Adela Cole TRANSFER IRON OPERATOR 04/12/2015 Office visit Adela Cole TRANSFER IRON OPERATOR 03/23/2015 Office visit Chelsea Rodríguez BALLROOM DANCER 03/08/2015 Office visit Adela Cole TRANSFER IRON OPERATOR 02/14/2015 Office visit Leonardo Cowan BALLROOM DANCER 02/08/2015 Office visit Adela Cole TRANSFER IRON OPERATOR 02/07/2015 Office visit Leonardo Cowan BALLROOM DANCER 01/11/2015 Office visit Adela Cole TRANSFER IRON OPERATOR 12/28/2014 Office visit Chelsea Rodríguez BALLROOM DANCER 12/14/2014 Nurse visit Adela Cole TRANSFER IRON OPERATOR 11/23/2014 Nurse visit Adela PITTMANP 10/26/2014 Office visit Adela PITTMANP 10/12/2014 Office visit 10/12/2014 Office visit Chelsea Rodríguez BALLROOM DANCER 10/05/2014 Nurse visit Adela Cole TRANSFER IRON OPERATOR 09/07/2014 Office visit Adela PITTMANP 08/17/2014 Office visit 08/17/2014 Office visit 08/17/2014 Office visit Chelsea Rodríguez BALLROOM DANCER 08/14/2014 Office visit Adela PITTMANP 07/27/2014 Office visit Adela PITTMANP 2014 Office visit Adela PITTMANP 2014 Office visit Mica Lr BALLROOM DANCER 06/28/2014 Nurse visit Adela PITTMANP 05/31/2014 Office visit Adela PITTMANP 05/03/2014 Voided Adela PITTMANP 04/26/2014 Office visit Mica Lr BALLROOM DANCER 04/05/2014 Office visit Adela PITTMANP 03/10/2014 Office visit Adela PITTMANP 02/28/2014 Office visit Mica Lr BALLROOM DANCER 02/24/2014 Office visit Adela PITTMANP 02/06/2014 Office visit Adela PITTMANP 01/10/2014 Nurse visit Suzan Liang MD 01/06/2014 Office visit Mica Lr BALLROOM DANCER 12/15/2013 Office visit Adela PITTMANP 11/17/2013 Office visit Chelsea Rodríguez BALLROOM DANCER 11/17/2013 Office visit Adela Manjit Douglas TRANSFER IRON OPERATOR 10/20/2013 Office visit Adela Cole TRANSFER IRON OPERATOR 09/22/2013 Office visit Adela Manjit Douglas TRANSFER IRON OPERATOR 08/30/2013 Office visit Chelsea Rodríguez BALLROOM DANCER 08/26/2013 Office visit Beti MMarcus Reyna BALLROOM DANCER 07/29/2013 Office visit Adela AlexMarcus Cole TRANSFER IRON OPERATOR 07/06/2013 [facility] Elmira Campbell MD 07/01/2013 Office visit Adela M. Douglas TRANSFER IRON OPERATOR 06/06/2013 Office visit Adela Cole TRANSFER IRON OPERATOR 05/31/2013 Office visit Chelsea Rodríguez BALLROOM DANCER 05/11/2013 Office visit Adela Manjit Douglas TRANSFER IRON OPERATOR 03/22/2013 Office visit Adela M. Douglas TRANSFER IRON OPERATOR 03/10/2013 Office visit Adela M. Douglas TRANSFER IRON OPERATOR 03/04/2013 Office visit Adela Manjit Douglas TRANSFER IRON OPERATOR 03/02/2013 Office visit Odette Elam MD 02/22/2013 Office visit Adela Cole TRANSFER IRON OPERATOR 01/28/2013 Office visit Chelsea Rodríguez BALLROOM DANCER 01/25/2013 Office visit Adela Manjit Douglas TRANSFER IRON OPERATOR 12/27/2012 Office visit Adela Coel TRANSFER IRON OPERATOR 12/07/2012 [facility] Pablo Croft MD 11/24/2012 Office visit Pablo Croft MD 11/02/2012 Office visit Kylah Wright BALLROOM DANCER 11/02/2012 Office visit Mica Lr BALLROOM DANCER 10/05/2012 [facility] Pablo Croft MD 09/30/2012 Office visit Kylah Wright BALLROOM DANCER 09/01/2012 Office visit Kylah Wright BALLROOM DANCER 07/21/2012 Office visit Odette Elam MD 06/16/2012 Office visit Pablo Croft MD 05/11/2012 [facility] Pablo Croft MD 04/28/2012 Office visit Pablo Croft MD 04/20/2012 Office visit Odette Elam MD 03/29/2012 Office visit Pablo Croft MD 03/16/2012 [facility] Pablo Croft MD 03/09/2012 [facility] Pablo Croft MD 02/24/2012 [facility] Pablo Croft MD 02/11/2012 Office visit Pablo Croft MD 01/28/2012 Office visit Pablo Croft MD 01/19/2012 Office visit Odette Elam MD 12/03/2011 Office visit Reji Bowens MD 11/12/2011 Office visit Alison Antoine APRN 10/28/2011 Procedures Reji Bowens MD 10/07/2011 Office visit Odette Elam MD 09/04/2011 Surgery Reji Bowens MD 08/15/2011 Surgery Reji Bowens MD 07/22/2011 [facility] Naveen Aguilar MD 07/22/2011 [facility] Reji Bowens MD 07/14/2011 Surgery Reji Bowens MD 06/26/2011 Office visit Odette Elam MD 06/24/2011 Office visit Reji Bowens MD 12/04/2010 [facility] Asha Church MD
--- OUTSIDE RECORDS SUMMARY | 2018-02-14 11:11 | XMS REPORT ---
Author Chelsea Soliz [facility] Address [address] [place], [place] [address] Care Team Providers Care Industrial Machine Assembler Name Role Phone Chelsea Rodríguez PCP Unavailable Chelsea Rodríguez PreferredProvider Unavailable Allergies and Adverse Reactions Name Reaction Notes Keflex yeast infection does not want to take due to causes yeast infection Plan of Treatment Planned Activity Comments Planned Date Planned Time Plan/Goal Treadmill 06/22/2015 12:00 AM EKG (12-lead electrocardiogram) 06/21/2015 12:00 AM Basic metabolic profile 10/12/2014 12:00 AM Medications [...] route every 6 hours for 30 days Trintellix 10 mg oral tablet 04/07/2016 07/06/2016 take 1 tablet (10 mg) by oral route once daily at the same time each day for 30 days Belsomra 20 mg oral tablet 04/08/2016 06/07/2016 take 1 tablet (20 mg) by oral route once per night within 30 minutes of bedtime. Take only if at least 7 hrs of bedtime remain before planned time of waking. for 30 days Filled on 04-09 gabapentin 100 mg oral capsule Take 1 cap daily at HS naproxen oral Zanaflex 4 mg oral tablet cyclobenzaprine 10 mg oral tablet 04/24/2016 take 1 tablet by oral route once a day (at bedtime) Name Start Date Expiration Date SIG Comments [...] then Take 1 tab x 2 days. 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# [address]-92 Reviewed 11/27/2015 12:00 AM Depo-Medrol 40mg Reviewed [...] Returned 04/24/2016 12:[address] [facility]#8030-6182-43 Reviewed 10/29/2011 12:00 AM CYSTOMETROGRAM W/RN CARDIOVASCULAR&UP Reviewed 10/29/2011 12:00 AM ELECTRO-UROFLOWMETRY FIRST Reviewed 10/29/2011 12:00 AM INTRAABDOMINAL PRESSURE TEST Reviewed 11/12/2011 12:00 AM X-RAY URETHRA/BLADDER Reviewed 11/12/2011 12:00 AM X-RAY EXAM SI JOINTS 3/> VWS Reviewed 01/28/2012 12:00 AM MRI LUMBAR SPINE W/O DYE Reviewed 04/20/2012 12:00 AM THER/PROPH/DIAG INJ SC/IM Reviewed 04/20/2012 12:00 AM Depo-Medrol, Per [address] [facility]#9494-7447-91 Reviewed 07/21/2012 12:00 AM THER/PROPH/DIAG INJ SC/IM Reviewed 07/21/2012 12:00 AM Depo-Medrol, Per [address] [facility]#7207-1399-18 Reviewed 09/01/2012 12:00 AM Drug Screen (Non-Medicare) Reviewed 09/01/2012 12:00 AM DRAIN/INJ JOINT/BURSA W/O US Reviewed 09/01/2012 12:00 AM Kenalog, Per [address] [facility]#9307-1777-27 Reviewed 11/02/2012 12:00 AM Norflex, Up to [address] [facility]#98278-944-46 Reviewed 11/02/2012 12:00 AM INJ TRIGGER POINT 1/2 MUSCL Reviewed 11/02/2012 12:00 AM Bupivicaine, [address] [facility]#7377-5355-14 Reviewed 11/02/2012 12:00 AM THER/PROPH/DIAG INJ SC/IM Reviewed 11/02/2012 12:00 AM Norflex, Up to [address] [facility]#94031-747-44 Reviewed 12/27/2012 12:00 AM COMPLETE CBC W/AUTO DIFF WBC Reviewed 12/27/2012 12:00 AM COMPREHEN METABOLIC PANEL Reviewed 12/27/2012 12:00 AM ASSAY THYROID STIM HORMONE Reviewed 12/27/2012 12:00 AM VITAMIN B-12 Reviewed 12/27/2012 12:00 AM ASSAY OF FERRITIN Reviewed 12/27/2012 12:00 AM ANTINUCLEAR ANTIBODIES Reviewed 12/27/2012 12:00 AM DNA ANTIBODY [place] Reviewed 12/27/2012 12:00 AM NUCLEAR ANTIGEN ANTIBODY [...] 05/31/2013 12:00 AM Decadron, Per 1 Mg [facility]# [address]-74 Reviewed 05/31/2013 12:00 AM Depo-Medrol, Per 80 Mg [facility]#3775-6587-90 Reviewed 05/31/2013 12:00 AM THER/PROPH/DIAG INJ SC/IM Reviewed 06/06/2013 12:00 AM MUSCLE TEST 2 LIMBS Reviewed 06/06/2013 12:00 AM Nerve conduction studies with F-wave Reviewed 08/26/2013 12:00 AM MAMMOGRAM SCREENING Reviewed 08/26/2013 12:00 AM MAMMOGRAM SCREENING Reviewed 08/30/2013 12:00 AM THER/PROPH/DIAG INJ SC/IM Reviewed 08/30/2013 12:00 AM Decadron, Per 1 Mg [facility]# [address]-78 Reviewed 08/30/2013 12:00 AM Depo-Medrol, Per 80 Mg [facility]#5531-2555-05 Reviewed 11/17/2013 12:00 AM THER/PROPH/DIAG INJ SC/IM Reviewed 11/17/2013 12:00 AM Decadron, Per 1 Mg [facility]# [address]-00 Reviewed 11/17/2013 12:00 AM Depo-Medrol 40mg Reviewed 01/06/2014 12:00 AM THER/PROPH/DIAG INJ SC/IM Reviewed 01/06/2014 12:00 AM Decadron, Per 1 Mg [facility]# [address]-31 Reviewed 01/06/2014 12:[address] [facility]#6145-4999-20 Reviewed 01/10/2014 12:00 AM OFFICE/OUTPATIENT VISIT EST [...] 10/12/2014 12:00 AM Decadron, Per [address] [facility]# [address]-33 Reviewed 10/12/2014 12:00 AM Depo-Medrol 40mg Reviewed [...] CVX Influenza 03/02/2013 sanofi pasteur PMC Fluzone or411um Intramuscular Left Deltoid 03/02/2013 12/17/2012 141 X 02/28/2014 Merck & Co., Inc. 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 intermediate medication use Sep 01 2012 4:05PM Wrist [...] Neuralgia Sep 3 2013 3:35PM Anxiety Disorder Jan 6 [...] Feb 7 2013 9:09AM SI joint pain Feb 7 2013 9:09AM Neuralgia Feb 7 2013 9:09AM [...] thoracic back pain Apr 24 2016 8:21AM Payers Insurance Name Company Name Plan Name Plan Number Policy Number Policy Group Number Start Date [employer] [place] [id number] N/A [employer] Care [employer] [id number] N/A [place] [employer] [id number] N/A [employer] [place] [id number] Saturday, 2011 [employer] [place] [id number] N/A [employer] [place] [id number] Thursday, 2013 [facility] [id number]/A [employer] [id number] N/A History of Encounters Visit Date Visit Type Provider 04/24/2016 Office visit Chelsea Rodríguez APRN 04/07/2016 Office visit Chelsea Rodríguez APRN 03/04/2016 Office visit Chelsea Rodríguez APRN 01/14/2016 [...] Office visit 08/17/2014 Office visit Chelsea Rodríguez APRN 08/14/2014 Office visit Adeal Cole FIRE DEPARTMENT MARINE ENGINEER 07/27/2014 Office visit Adela Cole FIRE DEPARTMENT MARINE ENGINEER 2014 Office visit Adela Cole FIRE DEPARTMENT MARINE ENGINEER 2014 Office visit Mica Lr GLAZE MAKER 06/28/2014 Nurse visit Adela Cole FIRE DEPARTMENT MARINE ENGINEER 05/31/2014 Office visit Adela Cole FIRE DEPARTMENT MARINE ENGINEER 05/03/2014 Voided Adela Cole FIRE DEPARTMENT MARINE ENGINEER 04/26/2014 Office visit Micawillian Lr GLAZE MAKER 04/05/2014 Office visit Adela Cole FIRE DEPARTMENT MARINE ENGINEER 03/10/2014 Office visit Adela Cole FIRE DEPARTMENT MARINE ENGINEER 02/28/2014 Office visit Mica Lr GLAZE MAKER 02/24/2014 Office visit Adela Cole FIRE DEPARTMENT MARINE ENGINEER 02/06/2014 Office visit Adela Cole FIRE DEPARTMENT MARINE ENGINEER 01/10/2014 Nurse visit Suzan Liang MD 01/06/2014 Office visit Mica Lr GLAZE MAKER 12/15/2013 Office visit Adela Cole FIRE DEPARTMENT MARINE ENGINEER 11/17/2013 Office visit Chelsea Rodríguez GLAZE MAKER 11/17/2013 Office visit Adela Cole FIRE DEPARTMENT MARINE ENGINEER 10/20/2013 Office visit Adela Cole FIRE DEPARTMENT MARINE ENGINEER 09/22/2013 Office visit Adela Cole FIRE DEPARTMENT MARINE ENGINEER 08/30/2013 Office visit Chelsea Rodríguez GLAZE MAKER 08/26/2013 Office visit Beti Reyna GLAZE MAKER 07/29/2013 Office visit Adela Cole FIRE DEPARTMENT MARINE ENGINEER 07/06/2013 Procedures Elmira Campbell MD 07/01/2013 Office visit Adela Cole FIRE DEPARTMENT MARINE ENGINEER 06/06/2013 Office visit Adela Cole FIRE DEPARTMENT MARINE ENGINEER 05/31/2013 Office visit Chelsea Rodríguez GLAZE MAKER 05/11/2013 Office visit Adela Cole FIRE DEPARTMENT MARINE ENGINEER 03/22/2013 Office visit Adela Cole FIRE DEPARTMENT MARINE ENGINEER 03/10/2013 Office visit Adela Cole FIRE DEPARTMENT MARINE ENGINEER 03/04/2013 Office visit Adela PITTMANP 03/02/2013 Office visit Odette Elam MD 02/22/2013 Office visit Adela PITTMANP 01/28/2013 Office visit Chelsea Rodríguez GLAZE MAKER 01/25/2013 Office visit Adela Cole FIRE DEPARTMENT MARINE ENGINEER 12/27/2012 Office visit Adela Cole FIRE DEPARTMENT MARINE ENGINEER 12/07/2012 [facility] Pablo Croft MD 11/24/2012 Office visit Pablo Crotf MD 11/02/2012 Office visit Kylah Wright GLAZE MAKER 11/02/2012 Office visit Mica Lr GLAZE MAKER 10/05/2012 [facility] Pablo Croft MD 09/30/2012 Office visit Kylah Wright GLAZE MAKER 09/01/2012 Office visit Kylah Wright GLAZE MAKER 07/21/2012 Office visit Odette Elam MD 06/16/2012 Office visit Pablo Croft MD 05/11/2012 [facility] Pablo Croft MD 04/28/2012 Office visit Pablo Croft MD 04/20/2012 Office visit Odette Elam MD 03/29/2012 Office visit Pablo Croft MD 03/16/2012 [facility] Pablo Croft MD 03/09/2012 [facility] Pablo Corft MD 02/24/2012 [facility] Pablo Croft MD 02/11/2012 Office visit Pablo Croft MD 01/28/2012 Office visit Pablo Croft MD 01/19/2012 Office visit Odette Elam MD 12/03/2011 Office visit Reji Bowens MD 11/12/2011 Office visit Alison Antoine GLAZE MAKER 10/28/2011 Procedures Reji Bowens MD 10/07/2011 Office visit Odette Elam MD 09/04/2011 Surgery Reji Bowens MD 08/15/2011 Surgery Reji Bowens MD 07/22/2011 [facility] Naveen Aguilar MD 07/22/2011 [facility] Reji Bowens MD 07/14/2011 Surgery Reji Bowens MD 06/26/2011 Office visit Odette Elam MD 06/24/2011 Office visit Reji Bowens MD 12/04/2010 [facility] Asha Church MD
--- OUTSIDE RECORDS SUMMARY | 2018-02-14 11:13 | XMS REPORT ---
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 Take only if at least 7 hrs of bedtime remain before planned time of waking. for 30 days meloxicam 15 mg oral tablet 11/27/2015 TAKE 1 TABLET BY MOUTH ONCE DAILY Flonase Allergy Relief 50 mcg/actuation nasal spray,suspension 11/27/2015 inhale 1 spray (50 mcg) in each nostril by intranasal route once daily Name Start Date Expiration Date SIG Comments [...] then Take 1 tab x 2 days. 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 Procedures [...] 11/27/2015 12:00 AM Decadron, Per 1 Mg [facility]# [address]-36 Reviewed 11/27/2015 12:00 AM Depo-Medrol 40mg Reviewed [...] and screen Returned 10/29/2011 12:00 AM CYSTOMETROGRAM W/MANAGER RELATIONSHIP&UP Reviewed 10/29/2011 12:00 AM ELECTRO-UROFLOWMETRY FIRST Reviewed 10/29/2011 12:00 AM INTRAABDOMINAL PRESSURE TEST Reviewed 11/12/2011 12:00 AM X-RAY URETHRA/BLADDER Reviewed 11/12/2011 12:00 AM X-RAY EXAM SI JOINTS 3/> VWS Reviewed 01/28/2012 12:00 AM MRI LUMBAR SPINE W/O DYE Returned 04/20/2012 12:00 AM THER/PROPH/DIAG INJ SC/IM Reviewed 04/20/2012 12:00 AM Depo-Medrol, Per 120 Mg [facility]#8256-8275-88 Reviewed 07/21/2012 12:00 AM THER/PROPH/DIAG INJ SC/IM Reviewed 07/21/2012 12:00 AM Depo-Medrol, Per 120 Mg [facility]#3034-4422-83 Reviewed 09/01/2012 12:00 AM Drug Screen (Non-Medicare) Reviewed 09/01/2012 12:00 AM DRAIN/INJ JOINT/BURSA W/O US Reviewed 09/01/2012 12:00 AM Kenalog, Per 10 Mg [facility]#2765-8278-57 Reviewed 11/02/2012 12:00 AM Norflex, Up to 60 Mg [facility]#91632-034-13 Reviewed 11/02/2012 12:00 AM INJ TRIGGER POINT 1/2 MUSCL Reviewed 11/02/2012 12:00 AM Bupivicaine, 30 ml [facility]#5635-7616-49 Reviewed 11/02/2012 12:00 AM THER/PROPH/DIAG INJ SC/IM Reviewed 11/02/2012 12:00 AM Norflex, Up to 60 Mg [facility]#85964-150-03 Reviewed 12/27/2012 12:00 AM COMPLETE CBC W/AUTO DIFF WBC Returned 12/27/2012 12:00 AM COMPREHEN METABOLIC PANEL Returned 12/27/2012 12:00 AM ASSAY THYROID STIM HORMONE Returned 12/27/2012 12:00 AM VITAMIN B-12 Returned 12/27/2012 12:00 AM ASSAY OF FERRITIN Returned 12/27/2012 12:00 AM ANTINUCLEAR ANTIBODIES Reviewed 12/27/2012 12:00 AM DNA ANTIBODY ALUTIIQ Reviewed 12/27/2012 12:00 AM NUCLEAR ANTIGEN ANTIBODY [...] 05/31/2013 12:00 AM Decadron, Per 1 Mg [facility]# [address]-85 Reviewed 05/31/2013 12:00 AM Depo-Medrol, Per 80 Mg [facility]#4483-5608-02 Reviewed 05/31/2013 12:00 AM THER/PROPH/DIAG INJ SC/IM Reviewed 06/06/2013 12:00 AM MUSCLE TEST 2 LIMBS Reviewed 06/06/2013 12:00 AM Nerve conduction studies with F-wave Reviewed 08/26/2013 12:00 AM MAMMOGRAM SCREENING Returned 08/26/2013 12:00 AM MAMMOGRAM SCREENING Reviewed 08/30/2013 12:00 AM THER/PROPH/DIAG INJ SC/IM Reviewed 08/30/2013 12:00 AM Decadron, Per 1 Mg [facility]# [address]-93 Reviewed 08/30/2013 12:00 AM Depo-Medrol, Per 80 Mg [facility]#8752-8687-50 Reviewed 11/17/2013 12:00 AM THER/PROPH/DIAG INJ SC/IM Reviewed 11/17/2013 12:00 AM Decadron, Per 1 Mg [place]# [address]-89 Reviewed 11/17/2013 12:00 AM Depo-Medrol 40mg Reviewed 01/06/2014 12:00 AM THER/PROPH/DIAG INJ SC/IM Reviewed 01/06/2014 12:00 AM Decadron, Per 1 Mg [facility]# [address]-34 Reviewed 01/06/2014 12:00 AM Rocephin 1 gram [facility]#1201-9374-29 Reviewed 01/10/2014 12:00 AM OFFICE/OUTPATIENT VISIT EST [...] 10/12/2014 12:00 AM Decadron, Per 1 Mg [facility]# [address]-62 Reviewed 10/12/2014 12:00 AM Depo-Medrol 40mg Reviewed [...] Vis Given Vis Pub CVX Influenza 03/02/2013 [employer] pasteur PMC Fluzone [id number] Intramuscular Left Deltoid 03/02/2013 12/17/2012 141 X 02/28/2014 Merck & Co., Inc. MSD Pneumovax 23 [id number] Intramuscular Left Deltoid 02/28/2014 02/27/2009 33 Influenza 03/23/2015 Solaicx pasteur PMC Fluzone Quadrivalent [id number] Intramuscular Right Deltoid 03/23/2015 12/29/2014 140 History [...] joint pain Sep 2011 3:58PM Radiculopathy, lumbosacral Nov 2011 3:40PM SI [...] Feb 7 2013 9:09AM SI joint pain Jul 01 [...] Insomnia, unspecified type Nov 27 2015 9:03AM Payers Insurance Name Company Name Plan Name Plan Number Policy Number Policy Group Number Start Date R UMR [id number] N/A [facility] [employer] [facility] [id number] N/A [employer] [place] [id number] Saturday, 2011 [employer] [place] [id number] N/A [employer] [place] [id number] Thursday, 2013 History of Encounters Visit Date Visit Type Provider 11/27/2015 Office visit Chelsea Marcos MANAGER FEDERAL 08/23/2015 Office visit Chelsea Marcos MANAGER FEDERAL 07/19/2015 Office visit 07/19/2015 Office visit Chelsea Rodríguez MANAGER FEDERAL 06/21/2015 Office visit Chelsea Rodríguez APRN 05/03/2015 Nurse visit Adela PORTER 04/12/2015 Office visit Adela PORTER 03/23/2015 Office visit Chelsea Rodríguez APRN 03/08/2015 Office visit Adela PORTER 02/14/2015 Office visit Leonardo Cowan MANAGER FEDERAL 02/08/2015 Office visit Adela PORTER 02/07/2015 Office visit Leonardo Cowan MANAGER FEDERAL 01/11/2015 Office visit Adela PORTER 12/28/2014 Office visit Chelsea Rodríguez MANAGER FEDERAL 12/14/2014 Nurse visit Adela PORTER 11/23/2014 Nurse visit Adela PORTER 10/26/2014 Office visit Adela PORTER 10/12/2014 Office visit 10/12/2014 Office visit Chelsea Rodríguez MANAGER FEDERAL 10/05/2014 Nurse visit Adela PORTER 09/07/2014 Office visit Adela PORTER 08/17/2014 Office visit 08/17/2014 Office visit 08/17/2014 Office visit Chelsea Rodríguez APRN 08/14/2014 Office visit Adela PORTER 07/27/2014 Office visit Adela PORTER 2014 Office visit Adela PORTER 2014 Office visit Mica Lr APRN 06/28/2014 Nurse visit Adela PORTER 05/31/2014 Office visit Adela PORTER 05/03/2014 Voided Adela PITTMANP 04/26/2014 Office visit Mica StefanoMarcus eB MANAGER FEDERAL 04/05/2014 Office visit Adela JohnsonMarcus Douglas CLINICAL CODER 03/10/2014 Office visit Adela M. Douglas CLINICAL CODER 02/28/2014 Office visit Mica Lr MANAGER FEDERAL 02/24/2014 Office visit Adela Cole CLINICAL CODER 02/06/2014 Office visit Adela JohnsonMarcus Douglas CLINICAL CODER 01/10/2014 Nurse visit Suzan Liang MD 01/06/2014 Office visit Micawillian Lr MANAGER FEDERAL 12/15/2013 Office visit Adelacatherine Cole CLINICAL CODER 11/17/2013 Office visit Chelsea Rodríguez MANAGER FEDERAL 11/17/2013 Office visit Adela M. Douglas CLINICAL CODER 10/20/2013 Office visit Adela Cole CLINICAL CODER 09/22/2013 Office visit Adela Manjit Cole CLINICAL CODER 08/30/2013 Office visit Chelsea Rodríguez MANAGER FEDERAL 08/26/2013 Office visit Beti Reyna MANAGER FEDERAL 07/29/2013 Office visit Adela Cole CLINICAL CODER 07/06/2013 [facility] Elmira Campbell MD 07/01/2013 Office visit Adelacatherine Cole CLINICAL CODER 06/06/2013 Office visit Adelacatherine Cole CLINICAL CODER 05/31/2013 Office visit Chelsea Marcos MANAGER FEDERAL 05/11/2013 Office visit Adela Cole CLINICAL CODER 03/22/2013 Office visit Adela AlexMarcus Cole CLINICAL CODER 03/10/2013 Office visit Adela JohnsonMarcus Douglas CLINICAL CODER 03/04/2013 Office visit Adela Cole CLINICAL CODER 03/02/2013 Office visit Odette Elam MD 02/22/2013 Office visit Adela Cole CLINICAL CODER 01/28/2013 Office visit Chelsea Rodríguez MANAGER FEDERAL 01/25/2013 Office visit Adela Cole CLINICAL CODER 12/27/2012 Office visit Adela Cole CLINICAL CODER 12/07/2012 [facility] Pablo Croft MD 11/24/2012 Office visit Pablo Croft MD 11/02/2012 Office visit Kylah Wright MANAGER FEDERAL 11/02/2012 Office visit Mica Lr MANAGER FEDERAL 10/05/2012 [facility] Pablo Croft MD 09/30/2012 Office visit Kylah Wright MANAGER FEDERAL 09/01/2012 Office visit Kylah Wright MANAGER FEDERAL 07/21/2012 Office visit Odette Elam MD 06/16/2012 Office visit Pablo Croft MD 05/11/2012 [facility] Pablo Croft MD 04/28/2012 Office visit Pablo Croft MD 04/20/2012 Office visit Odette Elam MD 03/29/2012 Office visit Pablo Croft MD 03/16/2012 [facility] Pablo Crfot MD 03/09/2012 [facility] Pablo Croft MD 02/24/2012 [facility] Pablo Croft MD 02/11/2012 Office visit Pablo Croft MD 01/28/2012 Office visit Pablo Croft MD 01/19/2012 Office visit Odette Elam MD 12/03/2011 Office visit Reji Bowens MD 11/12/2011 Office visit Alison Antoine APRN 10/28/2011 Procedures Reji Bowens MD 10/07/2011 Office visit Odette Elam MD 09/04/2011 Surgery Reji Bowens MD 08/15/2011 Surgery Reji Bowens MD 07/22/2011 [facility] Naveen Aguilar MD 07/22/2011 [facility] Reji Bowens MD 07/14/2011 Surgery Reji Bowens MD 06/26/2011 Office visit Odette Elam MD 06/24/2011 Office visit Reji Bowens MD 12/04/2010 [facility] Asha Church MD
--- OUTSIDE RECORDS SUMMARY | 2018-02-14 11:15 | XMS REPORT ---
Author Author Chelsea Rodríguez Organization [facility] Address [address] [place], [place] [address] Care Team Providers Care Director Quality Systems Name Role Phone Chelsea Rodríguez PCP Chelsea [...] ONCE DAILY baclofen 10 mg oral tablet 06/24/2017 take 1 tablet by oral route daily Ambien 10 mg oral tablet 07/07/2017 08/06/2017 take 1 tablet (10 mg) by oral [...] route every 6 hours for 30 days [facility] 30-Day Starter Pack 300 mg (9)- 600 [...] then Take 1 tab x 2 days. Drury 10-325 mg oral tablet 05/03/2015 06/02/2015 take [...] HC BMI BSA BMI Percentile O2 Sat(%) 2017 9:53:00 AM 124 mmHg 72 mmHg 77 bpm 16 rpm 97.1 F 147.375 lbs 68 in 22.41 kg/m2 1.79 m2 98 % 05/22/2017 10:36:00 AM 124 mmHg 70 mmHg 123 bpm 16 rpm 97.8 F 152 lbs 68 in 23.1113 kg/m 1.8188 m 97 % 02/20/2017 10:54:00 AM 129 mmHg 66 mmHg 89 bpm 16 rpm 98.2 F 164 lbs 68 in 24.94 kg/m2 1.89 m2 98 % 02/10/2017 12:47:00 PM 130 mmHg 60 mmHg 103 bpm 20 rpm 98.2 F 166.125 lbs 68 in 25.259 kg/m 1.9014 m 97 % 01/31/2017 12:34:00 PM 122 mmHg 94 mmHg 142 bpm 20 rpm 98.9 F 162.25 lbs 68 in 24.67 kg/m2 1.88 m2 96 % 11/20/2016 1:56:00 PM 144 mmHg 70 mmHg 84 bpm 18 rpm 98.3 F 157.5 lbs 68 in 23.9475 kg/m 1.8514 m 98 % 08/29/2016 10:35:00 AM 122 mmHg 72 mmHg 107 bpm 18 rpm 98 F 151.375 lbs 68 in 23.02 kg/m2 1.82 m2 99 % 07/31/2016 11:21:00 AM 130 mmHg 74 mmHg 93 bpm 18 rpm 98.2 F 149.5 lbs 68 in 22.7312 kg/m 1.8037 m 100 % 06/11/2016 1:23:00 PM 126 mmHg [...] 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 [...] 11/27/2015 12:00 AM Decadron, Per 1 Mg [facility]# [address]-52 Reviewed 11/27/2015 12:00 AM Depo-Medrol 40mg Reviewed [...] Reviewed 04/24/2016 12:00 AM Toradol 60 Mg [facility]#1557-1182-97 Reviewed 06/11/2016 12:00 AM Consult/Referral Reviewed 06/11/2016 2:41 PM URINALYSIS AUTO W/O SCOPE Reviewed 06/11/2016 12:00 AM URINE CULTURE/COLONY COUNT Reviewed 06/13/2016 12:00 AM Splint, prefabricated, wrist or ankle Reviewed 07/31/2016 12:00 AM LIPID PANEL Reviewed 07/31/2016 12:00 AM MAMMOGRAPHY SCREENING, DIGITAL Reviewed 10/29/2011 12:00 AM CYSTOMETROGRAM W/INTERIOR HORTICULTURIST&UP Reviewed 10/29/2011 12:00 AM ELECTRO-UROFLOWMETRY FIRST Reviewed [...] 04/20/2012 12:00 AM Depo-Medrol, Per 120 Mg [facility]#5946-4929-35 Reviewed 2017 12:00 AM COMPLETE CBC W/AUTO DIFF WBC Returned 2017 12:00 AM COMPREHEN METABOLIC PANEL Returned 2017 12:00 AM LIPID PANEL Returned 2017 12:00 AM ASSAY THYROID STIM HORMONE Returned 07/21/2012 12:00 AM THER/PROPH/DIAG INJ SC/IM Reviewed 07/21/2012 12:00 AM Depo-Medrol, Per 120 Mg [facility]#4210-4881-58 Reviewed 09/01/2012 12:00 AM Drug Screen (Non-Medicare) Reviewed 09/01/2012 12:00 AM DRAIN/INJ JOINT/BURSA W/O US Reviewed 09/01/2012 12:00 AM Kenalog, Per 10 Mg [facility]#5866-7616-56 Reviewed 11/02/2012 12:00 AM Norflex, Up to 60 Mg [facility]#61182-063-16 Reviewed 11/02/2012 12:00 AM INJ TRIGGER POINT 1/2 MUSCL Reviewed 11/02/2012 12:00 AM Bupivicaine, 30 ml [facility]#3491-3072-45 Reviewed 11/02/2012 12:00 AM THER/PROPH/DIAG INJ SC/IM Reviewed 11/02/2012 12:00 AM Norflex, Up to 60 Mg [facility]#13268-761-59 Reviewed 12/27/2012 12:00 AM COMPLETE CBC W/AUTO DIFF WBC Reviewed 12/27/2012 12:00 AM COMPREHEN METABOLIC PANEL Reviewed 12/27/2012 12:00 AM ASSAY THYROID STIM HORMONE Reviewed 12/27/2012 12:00 AM VITAMIN B-12 Reviewed 12/27/2012 12:00 AM ASSAY OF FERRITIN Reviewed 12/27/2012 12:00 AM ANTINUCLEAR ANTIBODIES Reviewed 12/27/2012 12:00 AM DNA ANTIBODY [place] Reviewed 12/27/2012 12:00 AM NUCLEAR ANTIGEN [...] 12:00 AM Decadron, Per 1 Mg [place]# [address]-48 Reviewed 05/31/2013 12:00 AM Depo-Medrol, Per 80 Mg [facility]#8747-1347-60 Reviewed 05/31/2013 12:00 AM THER/PROPH/DIAG INJ SC/IM Reviewed 06/06/2013 12:00 AM MUSCLE TEST 2 LIMBS Reviewed 06/06/2013 12:00 AM Nerve conduction studies with F-wave Reviewed 08/26/2013 12:00 AM MAMMOGRAM SCREENING Reviewed 08/26/2013 12:00 AM MAMMOGRAM SCREENING Reviewed 08/30/2013 12:00 AM THER/PROPH/DIAG INJ SC/IM Reviewed 08/30/2013 12:00 AM Decadron, Per 1 Mg ND# [address]-45 Reviewed 08/30/2013 12:00 AM Depo-Medrol, Per 80 Mg [facility]#8450-0279-68 Reviewed 11/17/2013 12:00 AM THER/PROPH/DIAG INJ SC/IM Reviewed 11/17/2013 12:00 AM Decadron, Per 1 Mg [facility]# [address]-25 Reviewed 11/17/2013 12:00 AM Depo-Medrol 40mg Reviewed 01/06/2014 12:00 AM THER/PROPH/DIAG INJ SC/IM Reviewed 01/06/2014 12:00 AM Decadron, Per 1 Mg [facility]# [address]-56 Reviewed 01/06/2014 12:00 AM Rocephin 1 gram [facility]#3841-9435-18 Reviewed 01/10/2014 12:00 AM OFFICE/OUTPATIENT VISIT EST [...] 10/12/2014 12:00 AM Decadron, Per 1 Mg [facility]# [address]-12 Reviewed 10/12/2014 12:00 AM Depo-Medrol 40mg Reviewed [...] CVX Influenza 03/02/2013 sanofi pasteur PMC Fluzone [id number] Intramuscular Left Deltoid 03/02/2013 12/17/2012 141 X 02/28/2014 Merck & Co., Inc. 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 Sep 01 2012 4:05PM [...] 2017 9:57AM Other chronic pain 2017 9:57AM Payers Insurance Name Company Name Plan Name Plan Number Policy Number Policy Group Number Start Date [employer] [place] [id number] N/A [employer] [place] [id number] Saturday, 2011 [employer] [place] [id number] N/A [employer] [place] [id number] Thursday, 2013 UMR UMR [id number] N/A [employer] [id number] N/A [employer] [place] [id number] N/A [employer] [id number] N/A [employer] [id number] N/A [employer] [id number] DOI [id number] May [employer] [facility] [id number] N/A History of Encounters Visit Date Visit Type Provider 2017 Office visit Chelsea Rodríguez TEAM ASSEMBLY LINE MACHINE OPERATOR 05/22/2017 Office visit Chelsea Marcos TEAM ASSEMBLY LINE MACHINE OPERATOR 02/20/2017 Office visit Chelsea Marcos TEAM ASSEMBLY LINE MACHINE OPERATOR 02/10/2017 Office visit Jeremy West DO 01/31/2017 Office visit Dimitri Beebe NP 11/20/2016 Office visit Chelsea Walker TEAM ASSEMBLY LINE MACHINE OPERATOR 08/29/2016 Office visit Chelsea Walker TEAM ASSEMBLY LINE MACHINE OPERATOR 07/31/2016 Office visit Chelsea Marcos TEAM ASSEMBLY LINE MACHINE OPERATOR 06/11/2016 Office visit Chelsea Marcos TEAM ASSEMBLY LINE MACHINE OPERATOR 06/05/2016 Office visit Leonardo Cowan TEAM ASSEMBLY LINE MACHINE OPERATOR 05/14/2016 Office visit Chelsea Marcos TEAM ASSEMBLY LINE MACHINE OPERATOR 05/05/2016 Office visit Leonardo Cowan TEAM ASSEMBLY LINE MACHINE OPERATOR 04/24/2016 Office visit Chelsea Marcos TEAM ASSEMBLY LINE MACHINE OPERATOR 04/07/2016 Office visit Chelsea Marcos TEAM ASSEMBLY LINE MACHINE OPERATOR 03/04/2016 Office visit Chelsea Marcos TEAM ASSEMBLY LINE MACHINE OPERATOR 01/14/2016 Office visit Chelsea Marcos TEAM ASSEMBLY LINE MACHINE OPERATOR 01/09/2016 Office visit Leonardo Cowan TEAM ASSEMBLY LINE MACHINE OPERATOR 01/04/2016 Office visit Leonardo Cowan TEAM ASSEMBLY LINE MACHINE OPERATOR 11/27/2015 Office visit Chelsea Marcos TEAM ASSEMBLY LINE MACHINE OPERATOR 08/23/2015 Office visit Chelsea Marcos TEAM ASSEMBLY LINE MACHINE OPERATOR 07/19/2015 Office visit 07/19/2015 Office visit Chelsea Marcos TEAM ASSEMBLY LINE MACHINE OPERATOR 06/21/2015 Office visit Chelsea Marcos TEAM ASSEMBLY LINE MACHINE OPERATOR 05/03/2015 Nurse visit Adela PORTER 04/12/2015 Office visit Adela PITTMANP 03/23/2015 Office visit Chelsea Rodríguez TEAM ASSEMBLY LINE MACHINE OPERATOR 03/08/2015 Office visit Adela Cole MILITARY PERSONNEL SPECIALIST 02/14/2015 Office visit Leonardo Cowan TEAM ASSEMBLY LINE MACHINE OPERATOR 02/08/2015 Office visit Adela PITTMANP 02/07/2015 Office visit Leonardo Cowan TEAM ASSEMBLY LINE MACHINE OPERATOR 01/11/2015 Office visit Adela PITTMANP 12/28/2014 Office visit Chelsea Rodríguez TEAM ASSEMBLY LINE MACHINE OPERATOR 12/14/2014 Nurse visit Adela PITTMANP 11/23/2014 Nurse visit Adela PORTER 10/26/2014 Office visit Adela PITTMANP 10/12/2014 Office visit 10/12/2014 Office visit Chelsea Rodríguez TEAM ASSEMBLY LINE MACHINE OPERATOR 10/05/2014 Nurse visit Adela PITTMANP 09/07/2014 Office visit Adela Cole MILITARY PERSONNEL SPECIALIST 08/17/2014 Office visit 08/17/2014 Office visit 08/17/2014 Office visit Chelsea Rodríguez TEAM ASSEMBLY LINE MACHINE OPERATOR 08/14/2014 Office visit Adela Cole MILITARY PERSONNEL SPECIALIST 07/27/2014 Office visit Adela JohnsonMarcus Douglas MILITARY PERSONNEL SPECIALIST 2014 Office visit Adela Manjit Douglas MILITARY PERSONNEL SPECIALIST 2014 Office visit Mica Lr TEAM ASSEMBLY LINE MACHINE OPERATOR 06/28/2014 Nurse visit Adela Cole MILITARY PERSONNEL SPECIALIST 05/31/2014 Office visit Adela Cole MILITARY PERSONNEL SPECIALIST 05/03/2014 Voided Adela Cole MILITARY PERSONNEL SPECIALIST 04/26/2014 Office visit Mica Lr TEAM ASSEMBLY LINE MACHINE OPERATOR 04/05/2014 Office visit Adela Cole MILITARY PERSONNEL SPECIALIST 03/10/2014 Office visit Adela Cole MILITARY PERSONNEL SPECIALIST 02/28/2014 Office visit Mica Lr TEAM ASSEMBLY LINE MACHINE OPERATOR 02/24/2014 Office visit Adela Cole MILITARY PERSONNEL SPECIALIST 02/06/2014 Office visit Adela Cole MILITARY PERSONNEL SPECIALIST 01/10/2014 Nurse visit Suzan Liang MD 01/06/2014 Office visit Mica Lr TEAM ASSEMBLY LINE MACHINE OPERATOR 12/15/2013 Office visit Adela Cole MILITARY PERSONNEL SPECIALIST 11/17/2013 Office visit Chelsea Rodríguez TEAM ASSEMBLY LINE MACHINE OPERATOR 11/17/2013 Office visit Adela Cole MILITARY PERSONNEL SPECIALIST 10/20/2013 Office visit Adela Cole MILITARY PERSONNEL SPECIALIST 09/22/2013 Office visit Adela Cole MILITARY PERSONNEL SPECIALIST 08/30/2013 Office visit Chelsea Rodríguez TEAM ASSEMBLY LINE MACHINE OPERATOR 08/26/2013 Office visit Beti Reyna TEAM ASSEMBLY LINE MACHINE OPERATOR 07/29/2013 Office visit Adela Cole MILITARY PERSONNEL SPECIALIST 07/06/2013 Procedures Elmira Campbell MD 07/01/2013 Office visit Adela Cole MILITARY PERSONNEL SPECIALIST 06/06/2013 Office visit Adela Cole MILITARY PERSONNEL SPECIALIST 05/31/2013 Office visit Chelsea Rodríguez TEAM ASSEMBLY LINE MACHINE OPERATOR 05/11/2013 Office visit Adela Cole MILITARY PERSONNEL SPECIALIST 03/22/2013 Office visit Adela Cole MILITARY PERSONNEL SPECIALIST 03/10/2013 Office visit Adela Cole MILITARY PERSONNEL SPECIALIST 03/04/2013 Office visit Adela Cole MILITARY PERSONNEL SPECIALIST 03/02/2013 Office visit Odette Elam MD 02/22/2013 Office visit Adela Cole MILITARY PERSONNEL SPECIALIST 01/28/2013 Office visit Chelsea Rodríguez TEAM ASSEMBLY LINE MACHINE OPERATOR 01/25/2013 Office visit Adela Cole MILITARY PERSONNEL SPECIALIST 12/27/2012 Office visit Adela Cole MILITARY PERSONNEL SPECIALIST 12/07/2012 [facility] Pablo Croft MD 11/24/2012 Office visit Pablo Croft MD 11/02/2012 Office visit Kylah Wright TEAM ASSEMBLY LINE MACHINE OPERATOR 11/02/2012 Office visit Mica NMarcus Lr TEAM ASSEMBLY LINE MACHINE OPERATOR 10/05/2012 [facility] Pablo Croft MD 09/30/2012 Office visit Kylah Wright TEAM ASSEMBLY LINE MACHINE OPERATOR 09/01/2012 Office visit Kylah Wright TEAM ASSEMBLY LINE MACHINE OPERATOR 07/21/2012 Office visit Odette Elam MD 06/16/2012 Office visit Pablo Croft MD 05/11/2012 [facility] Pablo Croft MD 04/28/2012 Office visit Pablo Croft MD 04/20/2012 Office visit Odette Elam MD 03/29/2012 Office visit Pablo Croft MD 03/16/2012 [facility] Pablo Croft MD 03/09/2012 [facility] Pablo Croft MD 02/24/2012 [facility] Pablo Croft MD 02/11/2012 Office visit Pablo Croft MD 01/28/2012 Office visit Pablo Croft MD 01/19/2012 Office visit Odette Elam MD 12/03/2011 Office visit Reji Bowens MD 11/12/2011 Office visit Alison Antoine TEAM ASSEMBLY LINE MACHINE OPERATOR 10/28/2011 Procedures Reji Bowens MD 10/07/2011 Office [...]
--- OUTSIDE RECORDS SUMMARY | 2018-02-14 11:17 | XMS REPORT ---
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# [address]-01 Reviewed 11/27/2015 12:00 AM Depo-Medrol 40mg Reviewed [...] [place]/INK Returned 10/29/2011 12:00 AM CYSTOMETROGRAM W/EXHIBIT CLEANER&UP Reviewed 10/29/2011 12:00 AM ELECTRO-UROFLOWMETRY FIRST Reviewed 10/29/2011 12:00 AM INTRAABDOMINAL PRESSURE TEST Reviewed 11/12/2011 12:00 AM X-RAY URETHRA/BLADDER Reviewed 11/12/2011 12:00 AM X-RAY EXAM SI JOINTS 3/> VWS Reviewed 01/28/2012 12:00 AM MRI LUMBAR SPINE W/O DYE Returned 04/20/2012 12:00 AM THER/PROPH/DIAG INJ SC/IM Reviewed 04/20/2012 12:00 AM Depo-Medrol, Per [address] [facility]#7220-1509-23 Reviewed 07/21/2012 12:00 AM THER/PROPH/DIAG INJ SC/IM Reviewed 07/21/2012 12:00 AM Depo-Medrol, Per [address] [facility]#8765-3992-81 Reviewed 09/01/2012 12:00 AM Drug Screen (Non-Medicare) Reviewed 09/01/2012 12:00 AM DRAIN/INJ JOINT/BURSA W/O US Reviewed 09/01/2012 12:00 AM Kenalog, Per [address] [facility]#0630-2113-29 Reviewed 11/02/2012 12:00 AM Norflex, Up to [address] [facility]#96697-125-18 Reviewed 11/02/2012 12:00 AM INJ TRIGGER POINT 1/2 MUSCL Reviewed 11/02/2012 12:00 AM Bupivicaine, [address] [facility]#9496-5229-22 Reviewed 11/02/2012 12:00 AM THER/PROPH/DIAG INJ SC/IM Reviewed 11/02/2012 12:00 AM Norflex, Up to [address] [facility]#68823-624-96 Reviewed 12/27/2012 12:00 AM COMPLETE CBC W/AUTO DIFF WBC Returned 12/27/2012 12:00 AM COMPREHEN METABOLIC PANEL Returned 12/27/2012 12:00 AM ASSAY THYROID STIM HORMONE Returned 12/27/2012 12:00 AM VITAMIN B-12 Returned 12/27/2012 12:00 AM ASSAY OF FERRITIN Returned 12/27/2012 12:00 AM ANTINUCLEAR ANTIBODIES Reviewed 12/27/2012 12:00 AM DNA ANTIBODY [place] Reviewed 12/27/2012 12:00 AM NUCLEAR ANTIGEN ANTIBODY [...] Decadron, Per [address] [facility]# [address]-11 Reviewed 05/31/2013 12:00 AM Depo-Medrol, Per [address] [facility]#1005-3613-47 Reviewed 05/31/2013 12:00 AM THER/PROPH/DIAG INJ SC/IM Reviewed 06/06/2013 12:00 AM MUSCLE TEST 2 LIMBS Reviewed 06/06/2013 12:00 AM Nerve conduction studies with F-wave Reviewed 08/26/2013 12:00 AM MAMMOGRAM SCREENING Returned 08/26/2013 12:00 AM MAMMOGRAM SCREENING Reviewed 08/30/2013 12:00 AM THER/PROPH/DIAG INJ SC/IM Reviewed 08/30/2013 12:00 AM Decadron, Per [address] [facility]# [address]-69 Reviewed 08/30/2013 12:00 AM Depo-Medrol, Per [address] [facility]#1517-2421-28 Reviewed 11/17/2013 12:00 AM THER/PROPH/DIAG INJ SC/IM Reviewed 11/17/2013 12:00 AM Decadron, Per [address] [facility]# [address]-22 Reviewed 11/17/2013 12:00 AM Depo-Medrol 40mg Reviewed 01/06/2014 12:00 AM THER/PROPH/DIAG INJ SC/IM Reviewed 01/06/2014 12:00 AM Decadron, Per [address] [facility]# [address]-61 Reviewed 01/06/2014 12:00 AM Rocephin [address] [facility]#2916-9363-03 Reviewed 01/10/2014 12:00 AM OFFICE/OUTPATIENT VISIT EST [...] Decadron, Per [address] [facility]# [address]-99 Reviewed 10/12/2014 12:00 AM Depo-Medrol 40mg Reviewed [...] 10.90 g/dLHCT 33.60 %MCV 94.0 fLMCH 30.40 [facility] g/dLRDW CV 13.10 %MPV 9.80 fLPLT 199 12/30/2012 11:35 AM WBC 6.7 RBC 4.98 HGB 15.20 g/dLHCT 45.50 %MCV 91.0 fLH 30.50 [facility] 33.40 g/dLRDW CV 12.70 %MPV 9.60 fLPLT [...] CVX Influenza 03/02/2013 sanofi pasteur PMC Fluzone [id number] Intramuscular Left Deltoid 03/02/2013 12/17/2012 141 X 02/28/2014 [employer]ck [employer] MSD Pneumovax 23 [id number] Intramuscular Left Deltoid 02/28/2014 02/27/2009 33 Influenza 03/23/2015 sanofi pasteur PMC Fluzone Quadrivalent [id number] Intramuscular Right Deltoid 03/23/2015 12/29/2014 140 Influenza [...] SI joint pain Sep 01 2012 3:06PM USP medication use Sep 01 2012 4:05PM Wrist [...] Policy Group Number Start Date BCBS Bcbs [facility] [id number] N/A Res Care ResCare [id number] N/A [facility] [employer] [id number] N/A [employer] [facility] [id number] Saturday, 2011 BCBS [employer] [facility] [id number] N/A BCBS [employer] [facility] [id number] Thursday, 2013 UMR UMR [id number] N/A [employer] [id number] N/A History of Encounters Visit Date Visit Type Provider 03/04/2016 Office visit Chelsea Rodríguez APRN 01/14/2016 Office visit Chelsea Rodríguez APRN 01/09/2016 Office visit Leonardo Cowan APRN 01/04/2016 Office visit Leonardo Cowan APRN 11/27/2015 Office visit Chelsea Rodríguez APRN 08/23/2015 Office visit Chelsea Rodríguez OPERATIONS SCHEDULER 07/19/2015 Office visit 07/19/2015 Office visit Chelsea Rodríguez OPERATIONS SCHEDULER 06/21/2015 Office visit Chelsea Rodríguez OPERATIONS SCHEDULER 05/03/2015 Nurse visit Adela Cole ENDBAND CUTTER HAND 04/12/2015 Office visit Adela Cole ENDBAND CUTTER HAND 03/23/2015 Office visit Chelsea Rodríguez OPERATIONS SCHEDULER 03/08/2015 Office visit Adela Cole ENDBAND CUTTER HAND 02/14/2015 Office visit Leonardo Cowan OPERATIONS SCHEDULER 02/08/2015 Office visit Adela Cole ENDBAND CUTTER HAND 02/07/2015 Office visit Leoanrdo Cowan OPERATIONS SCHEDULER 01/11/2015 Office visit Adela Cole ENDBAND CUTTER HAND 12/28/2014 Office visit Chelsea Rodríguez OPERATIONS SCHEDULER 12/14/2014 Nurse visit Adela Cole ENDBAND CUTTER HAND 11/23/2014 Nurse visit Adela PITTMANP 10/26/2014 Office visit Adela PITTMANP 10/12/2014 Office visit 10/12/2014 Office visit Chelsea Rodríguez OPERATIONS SCHEDULER 10/05/2014 Nurse visit Adela PITTMANP 09/07/2014 Office visit Adela PITTMANP 08/17/2014 Office visit 08/17/2014 Office visit 08/17/2014 Office visit Chelsea Rodríguez OPERATIONS SCHEDULER 08/14/2014 Office visit Adela PITTMANP 07/27/2014 Office visit Adela PITTMANP 2014 Office visit Adela PITTMANP 2014 Office visit Mica Lr OPERATIONS SCHEDULER 06/28/2014 Nurse visit Adela PITTMANP 05/31/2014 Office visit Adela PITTMANP 05/03/2014 Voided Adela PITTMANP 04/26/2014 Office visit Mica Lr OPERATIONS SCHEDULER 04/05/2014 Office visit Adela PITTMANP 03/10/2014 Office visit Adela PITTMANP 02/28/2014 Office visit Mica Lr OPERATIONS SCHEDULER 02/24/2014 Office visit Adela PITTMANP 02/06/2014 Office visit Adela PITTMANP 01/10/2014 Nurse visit Suzan Liang MD 01/06/2014 Office visit Mica Lr OPERATIONS SCHEDULER 12/15/2013 Office visit Adela PITTMANP 11/17/2013 Office visit Chelsea Rodríguez OPERATIONS SCHEDULER 11/17/2013 Office visit Adela AlexMarcus Cole ENDBAND CUTTER HAND 10/20/2013 Office visit Adela Cole ENDBAND CUTTER HAND 09/22/2013 Office visit Adela Manjit Douglas ENDBAND CUTTER HAND 08/30/2013 Office visit Chelsea Rodríguez OPERATIONS SCHEDULER 08/26/2013 Office visit Beti MMarcus Reyna OPERATIONS SCHEDULER 07/29/2013 Office visit Adela Cole ENDBAND CUTTER HAND 07/06/2013 [facility] Elmira Campbell MD 07/01/2013 Office visit Adela M. Douglas ENDBAND CUTTER HAND 06/06/2013 Office visit Adelacatherine Cole ENDBAND CUTTER HAND 05/31/2013 Office visit Chelsea Rodríguez OPERATIONS SCHEDULER 05/11/2013 Office visit Adela Manjit Douglas ENDBAND CUTTER HAND 03/22/2013 Office visit Adela AlexMarcus Cole ENDBAND CUTTER HAND 03/10/2013 Office visit Adela M. Douglas ENDBAND CUTTER HAND 03/04/2013 Office visit Adela Manjit Douglas ENDBAND CUTTER HAND 03/02/2013 Office visit Odette Elam MD 02/22/2013 Office visit Adela Cole ENDBAND CUTTER HAND 01/28/2013 Office visit Chelsea Rodríguez OPERATIONS SCHEDULER 01/25/2013 Office visit Adela AlexMarcus Cole ENDBAND CUTTER HAND 12/27/2012 Office visit Adela Cole ENDBAND CUTTER HAND 12/07/2012 Hospital Pablo Croft MD 11/24/2012 Office visit Pablo Croft MD 11/02/2012 Office visit Kylah Wright OPERATIONS SCHEDULER 11/02/2012 Office visit Mica Lr OPERATIONS SCHEDULER 10/05/2012 [facility] Pablo Croft MD 09/30/2012 Office visit Kylah Wright OPERATIONS SCHEDULER 09/01/2012 Office visit Kylah Wright OPERATIONS SCHEDULER 07/21/2012 Office visit Odette Elam MD 06/16/2012 [...]
--- OUTSIDE RECORDS SUMMARY | 2018-02-14 11:20 | XMS REPORT ---
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 [place] 10-325 mg oral tablet 05/03/2015 06/02/2015 take [...] a day (at bedtime) for 30 days alprazolam 0.5 mg oral [...] 11/27/2015 12:00 AM Decadron, Per 1 Mg [facility]# [address]-14 Reviewed 11/27/2015 12:00 AM Depo-Medrol 40mg Reviewed [...] Returned 04/24/2016 12:00 AM Toradol 60 Mg [facility]#1492-1960-89 Reviewed 06/11/2016 12:00 AM Consult/Referral Reviewed 06/11/2016 2:41 PM URINALYSIS AUTO W/O SCOPE Reviewed 06/11/2016 12:00 AM URINE CULTURE/COLONY COUNT Returned 10/29/2011 12:00 AM CYSTOMETROGRAM W/DOCUMENTATION WRITER&UP Reviewed 10/29/2011 12:00 AM ELECTRO-UROFLOWMETRY FIRST Reviewed 10/29/2011 12:00 AM INTRAABDOMINAL PRESSURE TEST Reviewed 11/12/2011 12:00 AM X-RAY URETHRA/BLADDER Reviewed 11/12/2011 12:00 AM X-RAY EXAM SI JOINTS 3/> VWS Reviewed 01/28/2012 12:00 AM MRI LUMBAR SPINE W/O DYE Reviewed 04/20/2012 12:00 AM THER/PROPH/DIAG INJ SC/IM Reviewed 04/20/2012 12:00 AM Depo-Medrol, Per 120 Mg [facility]#2588-5619-05 Reviewed 07/21/2012 12:00 AM THER/PROPH/DIAG INJ SC/IM Reviewed 07/21/2012 12:00 AM Depo-Medrol, Per 120 Mg [facility]#4054-4003-70 Reviewed 09/01/2012 12:00 AM Drug Screen (Non-Medicare) Reviewed 09/01/2012 12:00 AM DRAIN/INJ JOINT/BURSA W/O US Reviewed 09/01/2012 12:00 AM Kenalog, Per 10 Mg [facility]#5551-9981-91 Reviewed 11/02/2012 12:00 AM Norflex, Up to 60 Mg [facility]#00910-810-47 Reviewed 11/02/2012 12:00 AM INJ TRIGGER POINT 1/2 MUSCL Reviewed 11/02/2012 12:00 AM Bupivicaine, 30 ml [facility]#3026-3211-07 Reviewed 11/02/2012 12:00 AM THER/PROPH/DIAG INJ SC/IM Reviewed 11/02/2012 12:00 AM Norflex, Up to 60 Mg [facility]#15831-418-28 Reviewed 12/27/2012 12:00 AM COMPLETE CBC W/AUTO DIFF WBC Reviewed 12/27/2012 12:00 AM COMPREHEN METABOLIC PANEL Reviewed 12/27/2012 12:00 AM ASSAY THYROID STIM HORMONE Reviewed 12/27/2012 12:00 AM VITAMIN B-12 Reviewed 12/27/2012 12:00 AM ASSAY OF FERRITIN Reviewed 12/27/2012 12:00 AM ANTINUCLEAR ANTIBODIES Reviewed 12/27/2012 12:00 AM DNA ANTIBODY [place] P[place] Reviewed 12/27/2012 12:00 AM NUCLEAR ANTIGEN [...] 12:00 AM Decadron, Per 1 Mg [place]# [address]-29 Reviewed 05/31/2013 12:00 AM Depo-Medrol, Per 80 Mg [facility]#0342-6772-09 Reviewed 05/31/2013 12:00 AM THER/PROPH/DIAG INJ SC/IM Reviewed 06/06/2013 12:00 AM MUSCLE TEST 2 LIMBS Reviewed 06/06/2013 12:00 AM Nerve conduction studies with F-wave Reviewed 08/26/2013 12:00 AM MAMMOGRAM SCREENING Reviewed 08/26/2013 12:00 AM MAMMOGRAM SCREENING Reviewed 08/30/2013 12:00 AM THER/PROPH/DIAG INJ SC/IM Reviewed 08/30/2013 12:00 AM Decadron, Per 1 Mg [facility]# [address]-96 Reviewed 08/30/2013 12:00 AM Depo-Medrol, Per 80 Mg [facility]#1209-3341-51 Reviewed 11/17/2013 12:00 AM THER/PROPH/DIAG INJ SC/IM Reviewed 11/17/2013 12:00 AM Decadron, Per 1 Mg [facility]# [address]-11 Reviewed 11/17/2013 12:00 AM Depo-Medrol 40mg Reviewed 01/06/2014 12:00 AM THER/PROPH/DIAG INJ SC/IM Reviewed 01/06/2014 12:00 AM Decadron, Per 1 Mg [facility]# [address]-36 Reviewed 01/06/2014 12:00 AM Rocephin 1 gram [facility]#1653-9836-16 Reviewed 01/10/2014 12:00 AM OFFICE/OUTPATIENT VISIT EST [...] 10/12/2014 12:00 AM Decadron, Per 1 Mg [facility]# [address]-34 Reviewed 10/12/2014 12:00 AM Depo-Medrol 40mg Reviewed [...] 13.0 g/dLHCT 39.10 %MCV 91.0 fLMCH 30.20 pgHC 33.20 g/dLRDW SD 42 RDW CV 12.70 [...] 4.43 HGB 13.50 g/dLHCT 41.20 %MCV 93.0 [facility].50 pgHC 32.80 g/dLRDW SD 43 RDW CV 12.60 [...] Small History Of Immunizations Name Date Admin Mfg Name Mfg Code Trade Name Lot# Route Inj Vis Given Vis Pub CVX Influenza 03/02/2013 sanofi pasteur PMC Fluzone [id number] Intramuscular Left Deltoid 03/02/2013 12/17/2012 141 X 02/28/2014 Merck & Co., Inc. MSD Pneumovax 23 [id number] Intramuscular Left Deltoid 02/28/2014 02/27/2009 33 Influenza 03/23/2015 sanofi pasteur PMC Fluzone Quadrivalent [id number] Intramuscular Right Deltoid 03/23/2015 12/29/2014 140 Influenza 03/04/2016 [facility] Fluzone Quadrivalent UI [id number] AE [...] Low Back Pain b 2011 9:38AM Osteoarthrosis Feb 2011 9:38AM Abdominal Pain Feb 2011 9:38AM Diverticulosis Of Colon b 2011 9:38AM Pelvic Pain b 2011 11:14AM Menorrhagia Jul 14 2011 11:14AM Metrorrhagia b 2011 11:14AM Family [...] SI joint pain Sep 01 2012 3:06PM intermediate medication use Sep 01 2012 4:05PM [...] Group Number Start Date [employer] [place] [id number] N/A [employer] [place] [id number] Saturday, 2011 [employer] [place] [id number] N/A [employer] [place] [id number] Thursday, 2013 UMR UMR [id number] N/A [employer] [id number] N/A [employer] [place] [id number] N/A Res Care ResCare [id number] N/A [employer] [id number] N/A [employer] [id number] DOI [id number] May History of Encounters Visit Date Visit Type Provider 06/11/2016 Office visit Chelsea Rodríguez FLARE MAN 06/05/2016 Office visit Leonardo Cowan FLARE MAN 05/14/2016 Office visit Chelsea Rodríguez FLARE MAN 05/05/2016 Office visit Leonardo Cowan FLARE MAN 04/24/2016 Office visit Chelsea Rodríguez FLARE MAN 04/07/2016 Office visit Chelsea Rodríguez FLARE MAN 03/04/2016 Office visit Chelsea Rodríguez FLARE MAN 01/14/2016 Office visit Chelsea Rodríguez FLARE MAN 01/09/2016 Office visit Leonardo Cowan FLARE MAN 01/04/2016 Office visit Leonardo Cowan FLARE MAN 11/27/2015 Office visit Chelsea Rodríguez FLARE MAN 08/23/2015 Office visit Chelsea Rodríguez FLARE MAN 07/19/2015 Office visit 07/19/2015 Office visit Chelsea Rodríguez FLARE MAN 06/21/2015 Office visit Chelsea Rodríguez FLARE MAN 05/03/2015 Nurse visit Adela PITTMANP 04/12/2015 Office visit Adela PITTMANP 03/23/2015 Office visit Chelsea Rodríguez FLARE MAN 03/08/2015 Office visit Adela PITTMANP 02/14/2015 Office visit Leonardo Cowan FLARE MAN 02/08/2015 Office visit Adela PITTMANP 02/07/2015 Office visit Leonardo Cowan FLARE MAN 01/11/2015 Office visit Adela PITTMANP 12/28/2014 Office visit Chelsea Rodríguez FLARE MAN 12/14/2014 Nurse visit Adela PITTMANP 11/23/2014 Nurse visit Adela PITTMANP 10/26/2014 Office visit Adela PITTMANP 10/12/2014 Office visit 10/12/2014 Office visit Chelsea Rodríguez FLARE MAN 10/05/2014 Nurse visit Adela PITTMANP 09/07/2014 Office visit Adela PITTMANP 08/17/2014 Office visit 08/17/2014 Office visit 08/17/2014 Office visit Chelsea Rodríguez FLARE MAN 08/14/2014 Office visit Adela PITTMANP 07/27/2014 Office visit Adela PITTMANP 2014 Office visit Adela PITTMANP 2014 Office visit Mica Lr FLARE MAN 06/28/2014 Nurse visit Adela PITTMANP 05/31/2014 Office visit Adela PITTMANP 05/03/2014 Voided Adela PITTMANP 04/26/2014 Office visit Mica Lr FLARE MAN 04/05/2014 Office visit Adela PITTMANP 03/10/2014 Office visit Adela Manjit Douglas AQUATICS GROUP FITNESS INSTRUCTOR 02/28/2014 Office visit Mica Lr FLARE MAN 02/24/2014 Office visit Adela M. Douglas A[employer]AT[employer] GROUP FITNESS INSTRUCTOR 02/06/2014 Office visit Adela M. Douglas AQUATICS GROUP FITNESS INSTRUCTOR 01/10/2014 Nurse visit Suzan Liang MD 01/06/2014 Office visit Mica Lr FLARE MAN 12/15/2013 Office visit Adela M. Douglas AQUATICS GROUP FITNESS INSTRUCTOR 11/17/2013 Office visit Chelsea Marcos FLARE MAN 11/17/2013 Office visit Adela M. Douglas AQUATICS GROUP FITNESS INSTRUCTOR 10/20/2013 Office visit Adela M. Douglas AQUATICS GROUP FITNESS INSTRUCTOR 09/22/2013 Office visit Adela M. Douglas AQUATICS GROUP FITNESS INSTRUCTOR 08/30/2013 Office visit Chelsea Rodríguez FLARE MAN 08/26/2013 Office visit Beti Reyna FLARE MAN 07/29/2013 Office visit Adela Cole AQUATICS GROUP FITNESS INSTRUCTOR 07/06/2013 [facility] Elmira Campbell MD 07/01/2013 Office visit Adela M. Douglas AQUATICS GROUP FITNESS INSTRUCTOR 06/06/2013 Office visit Adela M. Douglas AQUATICS GROUP FITNESS INSTRUCTOR 05/31/2013 Office visit Chelsea Rodríguez FLARE MAN 05/11/2013 Office visit Adela Cole AQUATICS GROUP FITNESS INSTRUCTOR 03/22/2013 Office visit Adela Cole AQUATICS GROUP FITNESS INSTRUCTOR 03/10/2013 Office visit Adela Cole AQUATICS GROUP FITNESS INSTRUCTOR 03/04/2013 Office visit Adela PITTMANP 03/02/2013 Office visit Odette Elam MD 02/22/2013 Office visit Adela PITTMANP 01/28/2013 Office visit Chelsea Rodríguez FLARE MAN 01/25/2013 Office visit Adela PITTMANP 12/27/2012 Office visit Adela PITTMANP 12/07/2012 [facility] Pablo Croft MD 11/24/2012 Office visit Pablo Croft MD 11/02/2012 Office visit Kylah Wright FLARE MAN 11/02/2012 Office visit Mica Lr FLARE MAN 10/05/2012 [facility] Pablo Croft MD 09/30/2012 Office visit Kylah Wright FLARE MAN 09/01/2012 Office visit Kylah Wright FLARE MAN 07/21/2012 Office visit Odette Elam MD 06/16/2012 Office visit Pablo Croft MD 05/11/2012 [facility] Pablo Croft MD 04/28/2012 Office visit Pablo Croft MD 04/20/2012 Office visit Odette Elam MD 03/29/2012 Office visit Pablo Croft MD 03/16/2012 [facility] Pablo Croft MD 03/09/2012 [facility] Pablo Croft MD 02/24/2012 [facility] Pablo Croft MD 02/11/2012 Office visit Pablo Croft MD 01/28/2012 Office visit Pablo Croft MD 01/19/2012 Office visit Odette Elam MD 12/03/2011 Office visit Reji Bowens MD 11/12/2011 Office visit Alison Antoine APRN 10/28/2011 Procedures Reji Bowens MD 10/07/2011 Office visit Odette Elam MD 09/04/2011 Surgery Reji Bowens MD 08/15/2011 Surgery Reji Bowens MD 07/22/2011 [facility] Naveen Aguilar MD 07/22/2011 [facility] Reji Bowens MD 07/14/2011 Surgery Reji Boewns MD 06/26/2011 Office visit Odette Elam MD 06/24/2011 Office visit Reji Bowens MD 12/04/2010 [facility] Asha Church MD
--- OUTSIDE RECORDS SUMMARY | 2018-02-14 11:21 | XMS REPORT ---
Author Author Odette Elam [facility] Address [address] [place], [place] [id number] Care Team Providers Care Gis Engineer Name Role Phone Odette Elam PCP Unavailable Allergies and Adverse Reactions Name Reaction Notes Keflex yeast infection does not want to take due to causes yeast infection Plan of Treatment Planned Activity Comments Planned Date Planned Time Plan/Goal METABOLIC PANEL TOTAL CA 10/12/2014 12:00 AM Medications Active Name Start Date Estimated Completion Date SIG Comments Chantix Continuing Month Donn oral tablet 1 mg 09/04/2014 11/27/2014 take 1 tablet (1 mg) with a glass of water by oral route 2 times per day after meals for 12 weeks alprazolam oral tablet 0.5 mg 10/12/2014 01/10/2015 take 1 tablet by oral route every 6 hours for 30 days Cymbalta oral capsule,delayed release(DR/EC) 60 mg 10/12/2014 take 1 capsule (60 mg) by oral route once daily Wellbutrin oral tablet 100 mg 10/12/2014 take 1 tablet (100 mg) by oral route 2 times per day Frontenac oral tablet 10-325 mg 11/22/2014 12/22/2014 take 1 tablet by oral route every 8 hours as needed for 30 days Nucynta ER oral tablet extended release 12 hr 100 mg 11/22/2014 12/22/2014 take 1 tablet (100 mg) by oral route every 12 hours for 30 days gabapentin oral capsule 300 mg 11/23/2014 03/23/2015 take 1 capsule by oral route 3 times a day for 30 days meloxicam oral tablet 15 mg 11/23/2014 03/23/2015 take 1 tablet (15 mg) by oral route once daily for 30 days Zanaflex oral tablet 4 mg 11/23/2014 02/21/2015 take 1 tablet by oral route once a day (at bedtime) as needed for 30 days Name Start Date Expiration Date SIG Comments Xanax Oral Tablet 0.5 mg 10/07/2011 01/05/2012 take 1 tablet by oral route every 6 hours as needed for 30 days tramadol Oral tablet 50 mg 01/19/2012 04/18/2012 TAKE 1 TO 2 TABLETS BY MOUTH THREE TIMES DAILY NEEDED FOR 30 DAYS Nucynta ER Oral tablet extended release 12 hr 100 mg 03/29/2012 04/28/2012 take 1 tablet (100 mg) by oral route every 12 hours for 30 days diclofenac sodium Oral tablet,delayed release (DR/EC) 75 mg 01/27/20132013 take 1 tablet (75 mg) by oral route 2 times per day for 30 days diclofenac sodium oral tablet,delayed release (DR/EC) 75 mg 05/06/20122012 TAKE 1 TABLET BY MOUTH TWICE DAILY NEEDED fluoxetine oral capsule 40 mg 09/29/2012 10/29/2012 TAKE 1 CAPSULE BY MOUTH EVERY MORNING Nucynta oral tablet 75 mg 09/30/2012 11/02/2012 take 1 tablet (75 mg) by oral route every 6 hours for 30 days Gralise 30-Day Starter Pack oral tablet extended release 24 hr 300 mg (9)- 600 mg (69) 05/12/2013 06/11/2013 take 1 tablet by oral route once a day (at bedtime) for 30 days Nucynta oral tablet 50 mg 09/22/2013 10/22/2013 take 1 tablet (50 mg) by oral route every 6 hours as needed for 30 days Medrol (Dnon) oral tablets,dose pack 4 mg 01/06/2014 take as directed Zithromax Z-Donn oral tablet 250 mg 01/06/2014 01/11/2014 take 2 tablets (500 mg) by oral route once daily for 1 day then 1 tablet (250 mg) by oral route once daily for 4 days Bactrim DS oral tablet 800-160 mg 01/16/2014 01/26/2014 take 1 tablet by oral route 2 times per day for 10 days Chantix Starting Month Box oral tablets,dose pack 0.5 mg (11)- 1 mg (42) 201410/04/2014 take as directed for 30 days Augmentin oral tablet 875-125 mg 10/12/2014 take 1 tablet by oral route every 12 hours Discontinued Name Start Date Discontinued Date SIG Comments Percocet Oral Tablet 5-325 mg 06/26/2011 take 1 tablet by oral route every 4 hours as needed Percocet Oral Tablet 5-325 mg 07/14/2011 08/15/2011 take 1 tablet by oral route every 4-6 hours as needed meloxicam Oral Tablet 15 mg 10/07/2011 02/11/2012 take 1 tablet by oral route daily as needed for 30 days Robaxin Oral Tablet 500 mg 07/21/2012 take 1 tablets by oral route 4 times per day Lyrica Oral capsule 50 mg 01/28/2012 02/11/2012 take 1 capsule (50 mg) by oral route 3 times per day for 30 days trazodone Oral tablet 150 mg 02/09/2012 02/11/2012 TAKE 1 TABLET BY MOUTH THREE TIMES DAILY AFTER MEALS FOR 30 DAYS Neurontin Oral capsule 100 mg 02/11/2012 05/02/2012 take 3 capsules (300 mg) by oral route Q HS Lortab Oral tablet 5-500 mg 02/27/2012 03/11/2012 1 tab po TID/PRN pain Neurontin Oral capsule 300 mg 02/27/2012 05/02/2012 1 caps po at 5pm daily Nucynta Oral tablet 50 mg 03/11/2012 03/29/2012 take 1 tablet (50 mg) by oral route every 6 hours as needed for 30 days olanzapine Oral tablet 5 mg 07/21/2012 11/02/2012 take 1 tablet (5 mg) by oral route once daily meloxicam Oral tablet 15 mg 11/01/2012 11/02/2012 TAKE 1 TABLET BY MOUTH DAILY NEEDED Nucynta Oral tablet 100 mg 02/22/2013 03/04/2013 take 1 tablet (100 mg) by oral route every 6 hours as needed for 30 days patient is out of medication since she can no longer afford. Insurance coverage was dropped. naproxen oral tablet 500 mg 05/11/2013 08/30/2013 take 1 tablet (500 mg) by oral route 2 times per day with food for 30 days hydrocodone-acetaminophen oral tablet 10-325 mg 05/11/2013 05/31/2013 take 1 tablet by oral route every 12 hours as needed for 30 days moderate to severe pain Cymbalta oral capsule,delayed release(DR/EC) 30 mg 05/31/2013 06/06/2013 take 1 tablet by mouth daily x7 days then 60mg daily thereafter fluoxetine oral capsule 40 mg 04/26/2014 take 1 capsule (40 mg) by oral route once daily in the morning naproxen oral tablet 500 mg 09/19/2013 11/17/2013 TAKE 1 TABLET (500 MG) BY ORAL ROUTE 2 TIMES PER DAY WITH FOOD FOR 30 DAYS cyclobenzaprine oral tablet 10 mg 11/17/2013 02/06/2014 take 1 tablet (10 mg) by oral route 2 times per day for 30 days meloxicam oral tablet 15 mg 02/28/2014 05/03/2014 take 1 tablet (15 mg) by oral route once daily Levaquin oral tablet 500 mg 04/26/2014 take 1 tablet (500 mg) by oral route once daily for 10 days Chantix Starting Month Donn oral tablets,dose pack 0.5 mg (11)- 1 mg (42) 201307/27/2014 take as directed Chantix Continuing Month Donn oral tablet 1 mg 04/26/2014 07/27/2014 take 1 tablet (1 mg) with a glass of water by oral route 2 times per day after meals albuterol sulfate inhalation HFA aerosol inhaler 90 mcg/actuation 04/26/2014 inhale 1 - 2 puffs by inhalation route every 6 hours as needed Zorvolex oral capsule 35 mg 05/03/2014 2014 take 1 capsule (35 mg) by oral route 3 times per day for 30 days cyclobenzaprine oral tablet 10 mg 05/03/2014 07/27/2014 take 1 tablet (10 mg) by oral route 2 times per day for 30 days changed to zanaflex meloxicam oral tablet 15 mg 05/22/2014 2014 take 1 tablet (15 mg) by oral route once daily Sudafed 12 Hour oral tablet extended release 120 mg 08/17/2014 10/12/2014 take 1 tablet (120 mg) by oral route every 12 hours Medrol (Donn) oral tablets,dose pack 4 mg 08/17/2014 10/05/2014 take as directed Problem List Description Status Onset Anxiety Active Arthritis unspecified Active Diverticulitis of colon Active Sacroiliitis Active Pelvic Pain Active 06/26/2011 Family History Of Breast Cancer Active 06/26/2011 Back Pain Active Depression and anxiety Active Allergic rhinitis Active 11/17/2013 Depression Active 08/17/2014 Anxiety Active 08/17/2014 Vital Signs Date Time BP-Sys(mm[Hg] BP-[place](mm[Hg]) HR(bpm) RR(rpm) Temp WT HT HC BMI BSA BMI Percentile O2 Sat(%) 11/23/2014 10:00:00 AM 116 mmHg 80 mmHg [...] F 147 lbs 70 in 21.0921 kg/m 1.81 m2 03/04/2013 9:03:00 AM 110 mmHg 64 mmHg 72 bpm 16 rpm 97.2 F 143 lbs 70 in 20.52 kg/m2 1.7899 m 03/02/2013 3:51:00 PM 122 mmHg 78 mmHg 106 bpm 16 rpm 98.5 F 141.25 lbs 70 in 20.2671 kg/m 1.78 m2 97 % 02/22/2013 3:57:00 PM 124 mmHg 84 mmHg 70 bpm 16 rpm 97 F 141.25 lbs 70 in 20.27 kg/m2 1.7789 m 01/28/2013 8:48:00 AM 138 mmHg 64 mmHg 92 bpm 18 rpm 96.6 F 138.125 lbs 70 in 19.8187 kg/m 1.76 m2 100 % 01/25/2013 3:32:00 PM 118 mmHg 70 mmHg 84 bpm 16 rpm 97.8 F 139.25 lbs 70 in 19.98 kg/m2 1.7662 m 12/27/2012 2:04:00 PM 132 mmHg 98 mmHg 78 bpm 16 rpm 98.3 F 138 lbs 70 in 19.8007 kg/m 1.76 m2 11/24/2012 1:20:00 PM 124 mmHg 80 mmHg 74 bpm 169 rpm 98 F 136 lbs 70 in 19.51 kg/m2 1.7455 m 11/02/2012 10:02:00 AM 112 mmHg 54 mmHg 74 bpm 18 rpm 97.4 F 134 lbs 70 in 19.2268 kg/m 1.73 m2 11/02/2012 9:12:00 AM 104 mmHg 78 mmHg 95 bpm 20 rpm 97.9 F 134 lbs 70 in 19.23 kg/m2 1.7326 m 100 % 09/30/2012 3:23:00 PM 132 mmHg 74 mmHg 92 bpm 18 rpm 98.6 F 137 lbs 70 in 19.6573 kg/m 1.75 m2 09/01/2012 3:54:00 PM 102 mmHg 62 mmHg 88 bpm 16 rpm 09/01/2012 3:01:00 PM 104 mmHg 64 mmHg 88 bpm 18 rpm 97.7 F 134 lbs 70 in 19.2268 kg/m 1.73 m2 07/21/2012 4:04:00 PM 102 mmHg 70 mmHg 81 bpm 16 rpm 98.3 F 127.5 lbs 100 % 06/16/2012 4:11:00 PM 108 mmHg 74 mmHg 76 bpm 16 rpm 98.9 F 127.125 lbs 70 in 18.2404 kg/m 1.69 m2 04/28/2012 4:09:00 PM 124 mmHg 76 mmHg 72 bpm 16 rpm 98.5 F 130 lbs 70 in 18.65 kg/m2 1.7066 m 04/20/2012 4:01:00 PM 112 mmHg 76 mmHg 91 bpm 16 rpm 99 F 134.375 lbs 100 % 03/29/2012 3:38:00 PM 100 mmHg 62 mmHg 74 bpm 16 rpm 97.3 F 130 lbs 70 in 18.65 kg/m2 1.7066 m 02/11/2012 3:50:00 PM 104 mmHg 82 mmHg 84 bpm 16 rpm 95.9 F 132 lbs 70 in 18.9398 kg/m 1.72 m2 01/28/2012 8:59:00 AM 108 mmHg 72 mmHg 76 bpm 14 rpm 95.2 F 134.25 lbs 70 in 19.26 kg/m2 1.7342 m 01/19/2012 3:22:00 PM 122 mmHg 80 mmHg 89 bpm 16 rpm 98.5 F 137 lbs 98 % 12/03/2011 3:44:00 PM 116 mmHg 72 mmHg 76 bpm 98.6 F 135 lbs 70 in 19.37 kg/m2 1.7391 m 11/12/2011 10:47:00 AM 120 mmHg 70 mmHg 97 bpm 18 rpm 98.3 F 134.375 lbs 70 in 19.2806 kg/m 1.74 m2 100 % 10/28/2011 9:24:00 AM 109 mmHg 69 mmHg 67 bpm 98.5 F 140 lbs 70 in 20.09 kg/m2 1.771 m 10/07/2011 3:50:00 PM 122 mmHg 84 mmHg 84 bpm 16 rpm 98.4 F 143.5 lbs 100 % 09/04/2011 4:58:00 PM 120 mmHg 80 mmHg 85 bpm 98.3 F 145 lbs 70 in 20.81 kg/m2 1.8023 m 08/15/2011 3:21:00 PM 120 mmHg 79 mmHg 76 bpm 97.4 F 148.5 lbs 70 in 21.3073 kg/m 1.82 m2 07/14/2011 11:11:00 AM 128 mmHg 82 mmHg 70 bpm 98.3 F 156 lbs 70 in 22.38 kg/m2 1.8694 m 06/26/2011 9:34:00 AM 114 mmHg 82 mmHg 83 bpm 16 rpm 97.7 F 158.5 lbs 70 in 22.7421 kg/m 1.88 m2 98 % 06/24/2011 4:01:00 PM 124 mmHg 77 mmHg 77 bpm 97.6 F 162 lbs 68.5 in 24.27 kg/m2 1.8845 m Social History Name Description Comments Tobacco Current some day smoker Alcohol Use - Rare Children at home age 16 Lives with spouse in a house bachelors degree College graduate Denies illicit substance 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[employer] 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 History of Procedures Date Ordered Description Order Status 06/24/2011 12:00 AM ASSAY THYROID STIM HORMONE [...] and screen Returned 10/29/2011 12:00 AM CYSTOMETROGRAM W/ALL PURPOSE CLERK&UP Reviewed 10/29/2011 12:00 AM ELECTRO-UROFLOWMETRY FIRST Reviewed 10/29/2011 12:00 AM INTRAABDOMINAL PRESSURE TEST Reviewed 11/12/2011 12:00 AM X-RAY URETHRA/BLADDER Reviewed 11/12/2011 12:00 AM X-RAY EXAM SI JOINTS 3/> VWS Reviewed 01/28/2012 12:00 AM MRI LUMBAR SPINE W/O DYE Returned 04/20/2012 12:00 AM THER/PROPH/DIAG INJ SC/IM Reviewed 07/21/2012 12:00 AM THER/PROPH/DIAG INJ SC/IM Reviewed 09/01/2012 12:00 AM Drug Screen (Non-Medicare) Reviewed 11/02/2012 12:00 AM INJ TRIGGER POINT 1/2 MUSCL Reviewed 11/02/2012 12:00 AM THER/PROPH/DIAG INJ SC/IM Reviewed 12/27/2012 12:00 AM COMPLETE CBC W/AUTO DIFF WBC Returned 12/27/2012 12:00 AM COMPREHEN METABOLIC PANEL Returned 12/27/2012 12:00 AM ASSAY THYROID STIM HORMONE Returned 12/27/2012 12:00 AM VITAMIN B-12 Returned 12/27/2012 12:00 AM ASSAY OF FERRITIN Returned 12/27/2012 12:00 AM ANTINUCLEAR ANTIBODIES Reviewed 12/27/2012 12:00 AM DNA ANTIBODY [id number] Reviewed 12/27/2012 12:00 AM NUCLEAR ANTIGEN ANTIBODY [...] 12:00 AM ASSAY OF VITAMIN B-1 Reviewed 05/11/2013 12:00 AM MRI PELVIS W/O DYE Returned 05/31/2013 12:00 AM THER/PROPH/DIAG INJ SC/IM Reviewed 06/06/2013 12:00 AM MUSCLE TEST 2 LIMBS Reviewed 06/06/2013 12:00 AM Nerve conduction studies with F-wave Reviewed 08/26/2013 12:00 AM MAMMOGRAM SCREENING Returned 08/26/2013 12:00 AM MAMMOGRAM SCREENING Reviewed 08/30/2013 12:00 AM THER/PROPH/DIAG INJ SC/IM Reviewed 11/17/2013 12:00 AM THER/PROPH/DIAG INJ SC/IM Reviewed 01/06/2014 12:00 AM THER/PROPH/DIAG INJ SC/IM Reviewed 01/10/2014 12:00 AM OFFICE/OUTPATIENT VISIT EST Reviewed 02/24/2014 12:00 AM MRI LUMBAR SPINE W/O DYE Returned 02/28/2014 12:00 AM IMMUNIZATION ADMIN EACH ADD Reviewed 02/28/2014 12:00 AM FLU VAC NO [...] 10/12/2014 12:00 AM THER/PROPH/DIAG INJ SC/IM Reviewed Results Summary Data and Description Results [...] 0.21 # BASO 0.03 EOS 1.0 % 08/17/2014 11:05 AM WBC 5.8 RBC 4.31 [...] CVX Influenza 03/02/2013 sanofi pasteur PMC Fluzone [id number] Intramuscular Left Deltoid 03/02/2013 12/17/2012 141 Pneumococcal 02/28/2014 [employer] MSD Pneumovax 23 [id number] Intramuscular Left Deltoid 02/28/2014 02/27/2009 33 History of Past Illness Name Date of Onset Comments Anxiety Arthritis unspecified Diverticulitis of colon Sacroiliitis Abnormal Uterine Bleeding 06/26/2011 Endometrial hyperplasia, unspecified 06/26/2011 Pelvic Pain 06/26/2011 Family History Of Breast Cancer 06/26/2011 Kidney Calculus Constipation Depression and anxiety Back Pain Allergic rhinitis 11/17/2013 Depression 08/17/2014 Anxiety 08/17/2014 Abnormal Uterine Bleeding Jun 24 [...] Sep 2012 3:35PM SI joint pain Jan 3 [...] 7 2013 9:09AM SI joint pain Feb 2013 9:09AM Neuralgia Feb 7 2013 9:09AM Pain in joint; Right Hip Jul 01 2013 9:09AM Lumbosacral Radiculopathy Feb 12 2014 8:30AM Radiculopathy, lumbosacral Jul 29 2013 9:01AM [...] SI joint pain Apr 05 2014 2:53PM Pain in joint; Right Hip Apr 05 2014 2:53PM Anxiety Disorder Apr [...] Chronic pain syndrome Nov 23 2014 10:02AM Payers Insurance Name Company Name Plan Name Plan Number Policy Number Policy Group Number Start Date R UMR [id number] N/A [employer] [facility] [id number] Saturday, 2011 [employer] [facility] [id number] N/A [employer] [facility] [id number] Thursday, 2013 History of Encounters Visit Date Visit Type Provider 11/23/2014 Nurse visit Adela PORTER 10/26/2014 Office visit Adela M. Douglas FLEET DISPATCH MANAGER 10/12/2014 Office visit Chelsea Rodríguez ESCROW SECRETARY 10/05/2014 Nurse visit Adela M. Douglas FLEET DISPATCH MANAGER 09/07/2014 Office visit Adela M. Douglas FLEET DISPATCH MANAGER 08/17/2014 Office visit Chelsea Rodríguez ESCROW SECRETARY 08/14/2014 Office visit Adelacatherine Cole FLEET DISPATCH MANAGER 07/27/2014 Office visit Adela M. Douglas FLEET DISPATCH MANAGER 2014 Office visit Mica Lr ESCROW SECRETARY 2014 Office visit Adela Cole FLEET DISPATCH MANAGER 06/28/2014 Nurse visit Adela JohnsonMarcus Douglas FLEET DISPATCH MANAGER 05/31/2014 Office visit Adela AlexMarcus Douglas FLEET DISPATCH MANAGER 05/03/2014 Office visit Adela JohnsonMarcus Douglas FLEET DISPATCH MANAGER 04/26/2014 Office visit Mica Lr ESCROW SECRETARY 04/05/2014 Office visit Adela JohnsonMarcus Cole FLEET DISPATCH MANAGER 03/10/2014 Office visit Adela JohnsonMarcus Douglas FLEET DISPATCH MANAGER 02/28/2014 Office visit Mica Lr ESCROW SECRETARY 02/24/2014 Office visit Adela Cole FLEET DISPATCH MANAGER 02/06/2014 Office visit Adela Cole FLEET DISPATCH MANAGER 01/10/2014 Nurse visit Suzan Liang MD 01/06/2014 Office visit Mica Lr ESCROW SECRETARY 12/15/2013 Office visit Adela Manjit Cole FLEET DISPATCH MANAGER 11/17/2013 Office visit Adela Cole FLEET DISPATCH MANAGER 11/17/2013 Office visit Chelsea Rodríguez ESCROW SECRETARY 10/20/2013 Office visit Adela Cole FLEET DISPATCH MANAGER 09/22/2013 Office visit Adela Cole FLEET DISPATCH MANAGER 08/30/2013 Office visit Chelsea Rodríguez ESCROW SECRETARY 08/26/2013 Office visit Beti Reyna ESCROW SECRETARY 07/29/2013 Office visit Adela Cole FLEET DISPATCH MANAGER 07/06/2013 Procedures Elmira Campbell MD 07/01/2013 Office visit Adela Cole FLEET DISPATCH MANAGER 06/06/2013 Office visit Adela Cole FLEET DISPATCH MANAGER 05/31/2013 Office visit Chelsea Rodríguez ESCROW SECRETARY 05/11/2013 Office visit Adela Cole FLEET DISPATCH MANAGER 03/22/2013 Office visit Adela Cole FLEET DISPATCH MANAGER 03/10/2013 Office visit Adela Cole FLEET DISPATCH MANAGER 03/04/2013 Office visit Adela Cole FLEET DISPATCH MANAGER 03/02/2013 Office visit Odette Elam MD 02/22/2013 Office visit Adela Cole FLEET DISPATCH MANAGER 01/28/2013 Office visit Chelsea Rodríguez ESCROW SECRETARY 01/25/2013 Office visit Adela PITTMANP 12/27/2012 Office visit Adela Cole FLEET DISPATCH MANAGER 12/07/2012 [facility] Pablo Croft MD 11/24/2012 Office visit Pablo Croft MD 11/02/2012 Office visit Mica Lr ESCROW SECRETARY 11/02/2012 Office visit Kylah Wright ESCROW SECRETARY 10/05/2012 [facility] Pablo Croft MD 09/30/2012 Office visit Kylah Wright ESCROW SECRETARY 09/01/2012 Office visit Kylah Wright ESCROW SECRETARY 07/21/2012 Office visit Odette Elam MD 06/16/2012 Office visit Pablo Croft MD 05/11/2012 [facility] Pablo Croft MD 04/28/2012 Office visit Pablo Croft MD 04/20/2012 Office visit Odette Elam MD 03/29/2012 Office visit Pablo Croft MD 03/16/2012 [facility] Pablo Croft MD 03/09/2012 [facility] Pablo Croft MD 02/24/2012 [facility] Pablo Croft MD 02/11/2012 Office visit Pablo Croft MD 01/28/2012 Office visit Pablo Croft MD 01/19/2012 Office visit Odette Elam MD 12/03/2011 Office visit Reji Bowens MD 11/12/2011 Office visit Alison Antoine ESCROW SECRETARY 10/28/2011 Procedures Reji Bowens MD 10/07/2011 Office visit Odette Elam MD 09/04/2011 Surgery Reji Bowens MD 08/15/2011 Surgery Reji Bowens MD 07/22/2011 [facility] Reji Bowens MD 07/22/2011 [facility] Naveen Aguilar MD 07/14/2011 Surgery Reji Bowens MD 06/26/2011 Office visit Odette Elam MD 06/24/2011 Office visit Reji Bowens MD 12/04/2010 [facility] Asha Church MD
[2018-02-14] MEDS ORDERED: PSEU-137 PO (11:23)
--- NOTE | 2018-02-14 11:24 | Diagnostic Imaging Report ---
PROCEDURE: CT sinuses without contrast TECHNIQUE: Multiple contiguous axial images were obtained through the sinuses without the use of intravenous contrast. Coronal and sagittal reformations were then performed. INDICATION: Sinus pain with headache. There is 3-4 mm mucous membrane thickening of the inferior maxillary sinus on the right. The upper portion of the sinus shows no mucous membrane thickening. The other sinuses are well aerated. There is no air-fluid level. There is no mass. There is no bone expansion or bone distraction. IMPRESSION: There are mild inflammatory changes of the inferior maxillary sinus on the right with no other abnormality seen. Dictated by: Dictated on workstation # [id number]
--- OUTSIDE RECORDS SUMMARY | 2018-02-14 11:24 | XMS REPORT ---
Author Chelsea Soliz [facility] Address [address] [place], [place] [id number] Care Team Providers Care Supervisor Reactor Fueling Name Role Phone Chelsea Rodríguez PCP Unavailable [...] capsule Take 1 cap daily at HS cyclobenzaprine 10 mg oral tablet 05/05/2016 06/04/2016 take 1 tablet by oral route once a day (at bedtime) for 30 days Name Start Date Expiration [...] then Take 1 tab x 2 days. 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 [...] 11/27/2015 12:00 AM Decadron, Per 1 Mg [facility]# [address]-00 Reviewed 11/27/2015 12:00 AM Depo-Medrol 40mg Reviewed [...] Returned 04/24/2016 12:00 AM Toradol 60 Mg [facility]#9291-6491-51 Reviewed 10/29/2011 12:00 AM CYSTOMETROGRAM W/BROADCAST FIELD SUPERVISOR&UP Reviewed 10/29/2011 12:00 AM ELECTRO-UROFLOWMETRY FIRST Reviewed 10/29/2011 12:00 AM INTRAABDOMINAL PRESSURE TEST Reviewed 11/12/2011 12:00 AM X-RAY URETHRA/BLADDER Reviewed 11/12/2011 12:00 AM X-RAY EXAM SI JOINTS 3/> VWS Reviewed 01/28/2012 12:00 AM MRI LUMBAR SPINE W/O DYE Reviewed 04/20/2012 12:00 AM THER/PROPH/DIAG INJ SC/IM Reviewed 04/20/2012 12:00 AM Depo-Medrol, Per 120 Mg [facility]#7120-2794-71 Reviewed 07/21/2012 12:00 AM THER/PROPH/DIAG INJ SC/IM Reviewed 07/21/2012 12:00 AM Depo-Medrol, Per 120 Mg [facility]#1479-8927-97 Reviewed 09/01/2012 12:00 AM Drug Screen (Non-Medicare) Reviewed 09/01/2012 12:00 AM DRAIN/INJ JOINT/BURSA W/O US Reviewed 09/01/2012 12:00 AM Kenalog, Per 10 Mg [facility]#4179-9825-89 Reviewed 11/02/2012 12:00 AM Norflex, Up to 60 Mg [facility]#78609-124-29 Reviewed 11/02/2012 12:00 AM INJ TRIGGER POINT 1/2 MUSCL Reviewed 11/02/2012 12:00 AM Bupivicaine, 30 ml [facility]#2904-6761-94 Reviewed 11/02/2012 12:00 AM THER/PROPH/DIAG INJ SC/IM Reviewed 11/02/2012 12:00 AM Norflex, Up to 60 Mg [facility]#09982-258-26 Reviewed 12/27/2012 12:00 AM COMPLETE CBC W/AUTO DIFF WBC Reviewed 12/27/2012 12:00 AM COMPREHEN METABOLIC PANEL Reviewed 12/27/2012 12:00 AM ASSAY THYROID STIM HORMONE Reviewed 12/27/2012 12:00 AM VITAMIN B-12 Reviewed 12/27/2012 12:00 AM ASSAY OF FERRITIN Reviewed 12/27/2012 12:00 AM ANTINUCLEAR ANTIBODIES Reviewed 12/27/2012 12:00 AM DNA ANTIBODY [place] Reviewed 12/27/2012 12:00 AM NUCLEAR ANTIGEN ANTIBODY [...] 12:00 AM Decadron, Per 1 Mg ND# [address]-26 Reviewed 05/31/2013 12:00 AM Depo-Medrol, Per 80 Mg ND#5664-3905-57 Reviewed 05/31/2013 12:00 AM THER/PROPH/DIAG INJ SC/IM Reviewed 06/06/2013 12:00 AM MUSCLE TEST 2 LIMBS Reviewed 06/06/2013 12:00 AM Nerve conduction studies with F-wave Reviewed 08/26/2013 12:00 AM MAMMOGRAM SCREENING Reviewed 08/26/2013 12:00 AM MAMMOGRAM SCREENING Reviewed 08/30/2013 12:00 AM THER/PROPH/DIAG INJ SC/IM Reviewed 08/30/2013 12:00 AM Decadron, Per 1 Mg [facility]# [address]-21 Reviewed 08/30/2013 12:00 AM Depo-Medrol, Per 80 Mg ND#0051-8159-00 Reviewed 11/17/2013 12:00 AM THER/PROPH/DIAG INJ SC/IM Reviewed 11/17/2013 12:00 AM Decadron, Per 1 Mg [facility]# [address]-73 Reviewed 11/17/2013 12:00 AM Depo-Medrol 40mg Reviewed 01/06/2014 12:00 AM THER/PROPH/DIAG INJ SC/IM Reviewed 01/06/2014 12:00 AM Decadron, Per 1 Mg [facility]# [address]-83 Reviewed 01/06/2014 12:00 AM Rocephin 1 gram [facility]#3847-9836-91 Reviewed 01/10/2014 12:00 AM OFFICE/OUTPATIENT VISIT EST [...] 10/12/2014 12:00 AM Decadron, Per 1 Mg [facility]# [address]-71 Reviewed 10/12/2014 12:00 AM Depo-Medrol 40mg Reviewed [...] CVX Influenza 03/02/2013 sanofi pasteur PMC Fluzone [id number] Intramuscular Left Deltoid 03/02/2013 12/17/2012 141 X 02/28/2014 [employer]ck & Co., Inc. MSD Pneumovax 23 [id number] Intramuscular Left Deltoid 02/28/2014 02/27/2009 33 Influenza 03/23/2015 sanofi pasteur PMC Fluzone Quadrivalent [id number] Intramuscular Right Deltoid 03/23/2015 12/29/2014 140 Influenza [...] pain Sep 3 2012 3:35PM Neuralgia Jan 25 2013 3:35PM Anxiety Disorder Jan 28 2013 8:51AM Radiculopathy, lumbosacral Feb 22 2013 [...] Right Hip b 2013 9:09AM Lumbosacral Radiculopathy Jul 06 2013 [...] thoracic back pain May 14 2016 10:02AM Payers Insurance Name Company Name Plan Name Plan Number Policy Number Policy Group Number Start Date [employer] [place] [id number] N/A Res Care [employer] [id number] N/A [employer] [id number] N/A [employer] [place] [id number] Saturday, 2011 [employer] [place] [id number] N/A [employer] [place] [id number] Thursday, 2013 UMR UMR [id number] N/A [facility] [employer] [facility] [id number] N/A History of Encounters Visit Date Visit Type Provider 05/14/2016 Office visit Chelsea Rodríguez APRN 05/05/2016 Office visit Leonardo Cowan APRN 04/24/2016 Office visit Chelsea Rodríguez APRN 04/07/2016 [...] Leonardo Cowan APRN 01/11/2015 Office visit Adela Manjit Cole BRAIN PICKER 12/28/2014 Office visit Chelsea Rodríguez OBIEE ARCHITECT 12/14/2014 Nurse visit Adela Cole BRAIN PICKER 11/23/2014 Nurse visit Adela Cole BRAIN PICKER 10/26/2014 Office visit Adela Cole BRAIN PICKER 10/12/2014 Office visit 10/12/2014 Office visit Chelsea Rodríguez OBIEE ARCHITECT 10/05/2014 Nurse visit Adela Cole BRAIN PICKER 09/07/2014 Office visit Adela Cole BRAIN PICKER 08/17/2014 Office visit 08/17/2014 Office visit 08/17/2014 Office visit Chelsea Rodríguez OBIEE ARCHITECT 08/14/2014 Office visit Adela Cole BRAIN PICKER 07/27/2014 Office visit Adela PITTMANP 2014 Office visit Adela PITTMANP 2014 Office visit Mica Lr OBIEE ARCHITECT 06/28/2014 Nurse visit Adela Cole BRAIN PICKER 05/31/2014 Office visit Adela PITTMANP 05/03/2014 Voided Adela Cole BRAIN PICKER 04/26/2014 Office visit Mica Lr OBIEE ARCHITECT 04/05/2014 Office visit Adela Cole BRAIN PICKER 03/10/2014 Office visit Adela PITTMANP 02/28/2014 Office visit Mica Lr OBIEE ARCHITECT 02/24/2014 Office visit Adela PITTMANP 02/06/2014 Office visit Adela PITTMANP 01/10/2014 Nurse visit Suzan Liang MD 01/06/2014 Office visit Mica Lr OBIEE ARCHITECT 12/15/2013 Office visit Adela Cole BRAIN PICKER 11/17/2013 Office visit Chelsea Rodríguez OBIEE ARCHITECT 11/17/2013 Office visit Adela PITTMANP 10/20/2013 Office visit Adela PITTMANP 09/22/2013 Office visit Adela PITTMANP 08/30/2013 Office visit Chelsea Rodríguez OBIEE ARCHITECT 08/26/2013 Office visit Beti Reyna OBIEE ARCHITECT 07/29/2013 Office visit Adela PITTMANP 07/06/2013 Procedures Elmira Campbell MD 07/01/2013 Office visit Adela PITTMANP 06/06/2013 Office visit Adela PITTMANP 05/31/2013 Office visit Chelsea Rodríguez OBIEE ARCHITECT 05/11/2013 Office visit Adela M. Douglas BRAIN PICKER 03/22/2013 Office visit Adelacatherine Cole BRAIN PICKER 03/10/2013 Office visit Adela Cole BRAIN PICKER 03/04/2013 Office visit Adelacatherine Cole BRAIN PICKER 03/02/2013 Office visit Odette Elam MD 02/22/2013 Office visit Adela M. Douglas BRAIN PICKER 01/28/2013 Office visit Chelsea Rodríguez OBIEE ARCHITECT 01/25/2013 Office visit Adelacatherine Cole BRAIN PICKER 12/27/2012 Office visit Adela M. Douglas BRAIN PICKER 12/07/2012 [facility] Pablo Croft MD 11/24/2012 Office visit Pablo Croft MD 11/02/2012 Office visit Kylah Wright OBIEE ARCHITECT 11/02/2012 Office visit Mica Lr OBIEE ARCHITECT 10/05/2012 [facility] Pablo Croft MD 09/30/2012 Office visit Kylah Wright OBIEE ARCHITECT 09/01/2012 Office visit Kylah Wright OBIEE ARCHITECT 07/21/2012 Office visit Odette Elam MD 06/16/2012 Office visit Pablo Croft MD 05/11/2012 [facility] Pablo Croft MD 04/28/2012 Office visit Pablo Croft MD 04/20/2012 Office visit Odette Elam MD 03/29/2012 Office visit Pablo Croft MD 03/16/2012 [facility] Pablo Croft MD 03/09/2012 [facility] Pablo Croft MD 02/24/2012 [facility] Pablo Croft MD 02/11/2012 Office visit Pablo Croft MD 01/28/2012 Office visit Pablo Croft MD 01/19/2012 Office visit Odette Elam MD 12/03/2011 Office visit Reji Bowens MD 11/12/2011 Office visit Alison Antoine OBIEE ARCHITECT 10/28/2011 Procedures Reji Bowens MD 10/07/2011 Office visit Odette Elam MD 09/04/2011 Surgery Reji Bowens MD 08/15/2011 Surgery Reji Bowens MD 07/22/2011 [facility] Naveen Aguilar MD 07/22/2011 [facility] Reji Bowens MD 07/14/2011 Surgery Reji Bowens MD 06/26/2011 Office visit Odette Elam MD 06/24/2011 Office visit Reji Bowens MD 12/04/2010 [facility] Geraldine Church MD
--- OUTSIDE RECORDS SUMMARY | 2018-02-14 11:26 | XMS REPORT ---
Author Author Chelsea Rodríguez Organization [facility] Address [address] [place], [place] [address] Care Team Providers Care Zmt Operator Name Role Phone Chelsea Rodríguez PCP Chelsea [...] then Take 1 tab x 2 days. 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 [...] 11/27/2015 12:00 AM Decadron, Per 1 Mg [facility]# [address]-66 Reviewed 11/27/2015 12:00 AM Depo-Medrol 40mg Reviewed [...] Reviewed 04/24/2016 12:00 AM Toradol 60 Mg [facility]#2322-6414-64 Reviewed 06/11/2016 12:00 AM Consult/Referral Reviewed 06/11/2016 2:41 PM URINALYSIS AUTO W/O SCOPE Reviewed 06/11/2016 12:00 AM URINE CULTURE/COLONY COUNT Reviewed 06/13/2016 12:00 AM Splint, prefabricated, wrist or ankle Reviewed 07/31/2016 12:00 AM LIPID PANEL Reviewed 07/31/2016 12:00 AM MAMMOGRAPHY SCREENING, DIGITAL Reviewed 10/29/2011 12:00 AM CYSTOMETROGRAM W/INSURANCE ACCOUNT SPECIALIST&UP Reviewed 10/29/2011 12:00 AM ELECTRO-UROFLOWMETRY FIRST Reviewed [...] 04/20/2012 12:00 AM Depo-Medrol, Per 120 Mg [facility]#4623-2582-94 Reviewed 07/21/2012 12:00 AM THER/PROPH/DIAG INJ SC/IM Reviewed 07/21/2012 12:00 AM Depo-Medrol, Per 120 Mg [facility]#6020-2804-18 Reviewed 09/01/2012 12:00 AM Drug Screen (Non-Medicare) Reviewed 09/01/2012 12:00 AM DRAIN/INJ JOINT/BURSA W/O US Reviewed 09/01/2012 12:00 AM Kenalog, Per 10 Mg [facility]#7642-4656-76 Reviewed 11/02/2012 12:00 AM Norflex, Up to 60 Mg [facility]#95400-208-65 Reviewed 11/02/2012 12:00 AM INJ TRIGGER POINT 1/2 MUSCL Reviewed 11/02/2012 12:00 AM Bupivicaine, 30 ml [facility]#6080-5881-48 Reviewed 11/02/2012 12:00 AM THER/PROPH/DIAG INJ SC/IM Reviewed 11/02/2012 12:00 AM Norflex, Up to 60 Mg [facility]#11637-841-40 Reviewed 12/27/2012 12:00 AM COMPLETE CBC W/AUTO DIFF WBC Reviewed 12/27/2012 12:00 AM COMPREHEN METABOLIC PANEL Reviewed 12/27/2012 12:00 AM ASSAY THYROID STIM HORMONE Reviewed 12/27/2012 12:00 AM VITAMIN B-12 Reviewed 12/27/2012 12:00 AM ASSAY OF FERRITIN Reviewed 12/27/2012 12:00 AM ANTINUCLEAR ANTIBODIES Reviewed 12/27/2012 12:00 AM DNA ANTIBODY [place] Reviewed 12/27/2012 12:00 AM NUCLEAR ANTIGEN ANTIBODY [...] 12:00 AM Decadron, Per 1 Mg ND# [address]-66 Reviewed 05/31/2013 12:00 AM Depo-Medrol, Per 80 Mg ND#8555-8001-60 Reviewed 05/31/2013 12:00 AM THER/PROPH/DIAG INJ SC/IM Reviewed 06/06/2013 12:00 AM MUSCLE TEST 2 LIMBS Reviewed 06/06/2013 12:00 AM Nerve conduction studies with F-wave Reviewed 08/26/2013 12:00 AM MAMMOGRAM SCREENING Reviewed 08/26/2013 12:00 AM MAMMOGRAM SCREENING Reviewed 08/30/2013 12:00 AM THER/PROPH/DIAG INJ SC/IM Reviewed 08/30/2013 12:00 AM Decadron, Per 1 Mg [facility]# [address]-40 Reviewed 08/30/2013 12:00 AM Depo-Medrol, Per 80 Mg ND#9830-1214-23 Reviewed 11/17/2013 12:00 AM THER/PROPH/DIAG INJ SC/IM Reviewed 11/17/2013 12:00 AM Decadron, Per 1 Mg [facility]# [address]-45 Reviewed 11/17/2013 12:00 AM Depo-Medrol 40mg Reviewed 01/06/2014 12:00 AM THER/PROPH/DIAG INJ SC/IM Reviewed 01/06/2014 12:00 AM Decadron, Per 1 Mg [facility]# [address]-32 Reviewed 01/06/2014 12:00 AM Rocephin 1 gram ND#1460-6397-52 Reviewed 01/10/2014 12:00 AM OFFICE/OUTPATIENT VISIT EST [...] 10/12/2014 12:00 AM Decadron, Per 1 Mg [facility]# [address]-44 Reviewed 10/12/2014 12:00 AM Depo-Medrol 40mg Reviewed [...] CVX Influenza 03/02/2013 sanofi pasteur PMC Fluzone [id number] Intramuscular Left Deltoid 03/02/2013 12/17/2012 141 X 02/28/2014 Merck & Co., Inc. MSD Pneumovax 23 [id number] Intramuscular Left Deltoid 02/28/2014 02/27/2009 33 Influenza 03/23/2015 sanofi pasteur PMC Fluzone Quadrivalent [id number] Intramuscular Right Deltoid 03/23/2015 12/29/2014 140 Influenza 03/04/2016 sanofi pasteur PMC Fluzone Quadrivalent UI 684 AE Intramuscular Left Deltoid 03/04/2016 12/29/2014 141 Tdap 02/20/2017 [employer] SKB BOOSTRIX [id number] Intramuscular Right Arm 02/20/2017 07/18/2014 115 Influenza 02/20/2017 [facility] Fluzone Quadrivalent [id number] Intramuscular Left Arm 02/20/2017 12/29/2014 150 History [...] SI joint pain Sep 01 2012 3:06PM [facility] medication use Sep 01 2012 4:05PM Wrist [...] Number Start Date [employer] [place] [id number] N/A [employer] [place] [id number] Saturday, 2011 [employer] [place] [id number] N/A [employer] [place] [id number] Thursday, 2013 UMR UMR [id number] N/A [employer] [id number] N/A [employer] [place] [id number] N/A Res Care ResCare [id number] N/A [employer] [id number] N/A Res Care [employer]Care [id number] DOI [id number] May [employer] [place] [id number] N/A History of Encounters Visit Date Visit Type Provider 05/22/2017 Office visit Chelsea Rodríguez REHAB NURSE 02/20/2017 Office visit Chelsea Rodríguez REHAB NURSE 02/10/2017 Office visit Jeremy West DO 01/31/2017 Office visit Dimitri Beebe NP 11/20/2016 Office visit Chelsea Rodríguez REHAB NURSE 08/29/2016 Office visit Chelsea Rodríguez REHAB NURSE 07/31/2016 Office visit Chelsea Rodríguez REHAB NURSE 06/11/2016 Office visit Chelsea Rodríguez REHAB NURSE 06/05/2016 Office visit Leonardo Cowan REHAB NURSE 05/14/2016 Office visit Chelsea Rodríguez REHAB NURSE 05/05/2016 Office visit Leonardo Cowan REHAB NURSE 04/24/2016 Office visit Chelsea Rodríguez REHAB NURSE 04/07/2016 Office visit Chelsea Rodríguez REHAB NURSE 03/04/2016 Office visit Chelsea Rodríguez REHAB NURSE 01/14/2016 Office visit Chelsea Rodríguez REHAB NURSE 01/09/2016 Office visit Leonardo Cowan REHAB NURSE 01/04/2016 Office visit Leonardo Cowan REHAB NURSE 11/27/2015 Office visit Chelsea Rodríguez REHAB NURSE 08/23/2015 Office visit Chelsea Rodríguez REHAB NURSE 07/19/2015 Office visit 07/19/2015 Office visit Chelsea Rodríguez REHAB NURSE 06/21/2015 Office visit Chelsea Rodríguez REHAB NURSE 05/03/2015 Nurse visit Adela Cole BLOGS MANAGER 04/12/2015 Office visit Adela Cole BLOGS MANAGER 03/23/2015 Office visit Chelsea Rodríguez REHAB NURSE 03/08/2015 Office visit Adela Cole BLOGS MANAGER 02/14/2015 Office visit Leonardo Cowan REHAB NURSE 02/08/2015 Office visit Adela Cole BLOGS MANAGER 02/07/2015 Office visit Leonardo Cowan REHAB NURSE 01/11/2015 Office visit Adela Cole BLOGS MANAGER 12/28/2014 Office visit Chelsea Rodríguez REHAB NURSE 12/14/2014 Nurse visit Adela Cole BLOGS MANAGER 11/23/2014 Nurse visit Adela PITTMANP 10/26/2014 Office visit Adela PITTMANP 10/12/2014 Office visit 10/12/2014 Office visit Chelsea Rodríguez REHAB NURSE 10/05/2014 Nurse visit Adela Cole BLOGS MANAGER 09/07/2014 Office visit Adela PITTMANP 08/17/2014 Office visit 08/17/2014 Office visit 08/17/2014 Office visit Chelsea Rodríguez REHAB NURSE 08/14/2014 Office visit Adela PITTMANP 07/27/2014 Office visit Adela PITTMANP 2014 Office visit Adela PITTMANP 2014 Office visit Mica Lr REHAB NURSE 06/28/2014 Nurse visit Adela PITTMANP 05/31/2014 Office visit Adela PITTMANP 05/03/2014 Voided Adela PITTMANP 04/26/2014 Office visit Mica Lr REHAB NURSE 04/05/2014 Office visit Adela PITTMANP 03/10/2014 Office visit Adela PITTMANP 02/28/2014 Office visit Mica Lr REHAB NURSE 02/24/2014 Office visit Adela PITTMANP 02/06/2014 Office visit Adela PITTMANP 01/10/2014 Nurse visit Suzan Liang MD 01/06/2014 Office visit Mica Lr REHAB NURSE 12/15/2013 Office visit Adela PITTMANP 11/17/2013 Office visit Chelsea Rodríguez REHAB NURSE 11/17/2013 Office visit Adela Manjit Douglas BLOGS MANAGER 10/20/2013 Office visit Adela Cole BLOGS MANAGER 09/22/2013 Office visit Adela Manjit Douglas BLOGS MANAGER 08/30/2013 Office visit Chelsea Rodríguez REHAB NURSE 08/26/2013 Office visit Beti MMarcus Reyna REHAB NURSE 07/29/2013 Office visit Adela AlexMarcus Cole BLOGS MANAGER 07/06/2013 [facility] Elmira Campbell MD 07/01/2013 Office visit Adela M. Douglas BLOGS MANAGER 06/06/2013 Office visit Adela Cole BLOGS MANAGER 05/31/2013 Office visit Chelsea Rodríguez REHAB NURSE 05/11/2013 Office visit Adela Manjit Douglas BLOGS MANAGER 03/22/2013 Office visit Adela M. Douglas BLOGS MANAGER 03/10/2013 Office visit Adela M. Douglas BLOGS MANAGER 03/04/2013 Office visit Adela Manjit Douglas BLOGS MANAGER 03/02/2013 Office visit Odette Elam MD 02/22/2013 Office visit Adela Cole BLOGS MANAGER 01/28/2013 Office visit Chelsea Rodríguez REHAB NURSE 01/25/2013 Office visit Adela Manjit Douglas BLOGS MANAGER 12/27/2012 Office visit Adela Cole BLOGS MANAGER 12/07/2012 [facility] Palbo Croft MD 11/24/2012 Office visit Pablo Croft MD 11/02/2012 Office visit Kylah Wright REHAB NURSE 11/02/2012 Office visit Mica Lr REHAB NURSE 10/05/2012 [facility] Pablo Croft MD 09/30/2012 Office visit Kylah Wright REHAB NURSE 09/01/2012 Office visit Kylah Wright REHAB NURSE 07/21/2012 Office visit Odette Elam MD 06/16/2012 Office visit Pablo Croft MD 05/11/2012 [facility] Pablo Croft MD 04/28/2012 Office visit Pablo Croft MD 04/20/2012 Office visit Odette Elam MD 03/29/2012 Office visit Pablo Croft MD 03/16/2012 [facility] Pablo Croft MD 03/09/2012 [facility] Pablo Croft MD 02/24/2012 [facility] Pablo Croft MD 02/11/2012 Office visit Pablo Croft MD 01/28/2012 Office visit Pablo Croft MD 01/19/2012 Office visit Odette Elam MD 12/03/2011 Office visit Reji Bowens MD 11/12/2011 Office visit Alison Antoine APRN 10/28/2011 Procedures Reji Bowens MD 10/07/2011 Office visit Odette Elam MD 09/04/2011 Surgery Reji Bowens MD 08/15/2011 Surgery Reji Bowens MD 07/22/2011 [facility] Naveen Aguilar MD 07/22/2011 [facility] Reji Bowens MD 07/14/2011 Surgery Reji Bowens MD 06/26/2011 Office visit Odette Elam MD 06/24/2011 Office visit Reji Bowens MD 12/04/2010 [facility] Asha Church MD
--- OUTSIDE RECORDS SUMMARY | 2018-02-14 11:28 | XMS REPORT ---
Author Chelsea Soliz Organization [facility] Address [address] [place], [place] [id number] Care Team Providers Care Associate Theatre Professor Name Role Phone Chelsea Rodríguez PCP Unavailable [...] then Take 1 tab x 2 days. 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 [...] 12:00 AM Decadron, Per 1 Mg [facility]# [address]-24 Reviewed 11/27/2015 12:00 AM Depo-Medrol 40mg Reviewed [...] Type and screen Returned 03/04/2016 12:00 AM TISSUE EXAM FOR FUNGI Returned 03/04/2016 12:00 AM SMEAR WET MOUNT SALINE/INK Returned 03/04/2016 12:00 AM SMEAR WET MOUNT SALINE/INK Returned 03/04/2016 12:00 AM FLU VACC 4 ROB 3 YRS PLUS IM Reviewed 10/29/2011 12:00 AM CYSTOMETROGRAM W/SHUTTLE REPAIRER&UP Reviewed 10/29/2011 12:00 AM ELECTRO-UROFLOWMETRY FIRST Reviewed 10/29/2011 12:00 AM INTRAABDOMINAL PRESSURE TEST Reviewed 11/12/2011 12:00 AM X-RAY URETHRA/BLADDER Reviewed 11/12/2011 12:00 AM X-RAY EXAM SI JOINTS 3/> VWS Reviewed 01/28/2012 12:00 AM MRI LUMBAR SPINE W/O DYE Returned 04/20/2012 12:00 AM THER/PROPH/DIAG INJ SC/IM Reviewed 04/20/2012 12:00 AM Depo-Medrol, Per 120 Mg [facility]#0461-5348-78 Reviewed 07/21/2012 12:00 AM THER/PROPH/DIAG INJ SC/IM Reviewed 07/21/2012 12:00 AM Depo-Medrol, Per 120 Mg [facility]#5492-0880-48 Reviewed 09/01/2012 12:00 AM Drug Screen (Non-Medicare) Reviewed 09/01/2012 12:00 AM DRAIN/INJ JOINT/BURSA W/O US Reviewed 09/01/2012 12:00 AM Kenalog, Per 10 Mg [facility]#5865-8610-65 Reviewed 11/02/2012 12:00 AM Norflex, Up to 60 Mg [facility]#94437-161-59 Reviewed 11/02/2012 12:00 AM INJ TRIGGER POINT 1/2 MUSCL Reviewed 11/02/2012 12:00 AM Bupivicaine, 30 ml [facility]#0209-8965-77 Reviewed 11/02/2012 12:00 AM THER/PROPH/DIAG INJ SC/IM Reviewed 11/02/2012 12:00 AM Norflex, Up to 60 Mg [facility]#33322-105-41 Reviewed 12/27/2012 12:00 AM COMPLETE CBC W/AUTO DIFF WBC Returned 12/27/2012 12:00 AM COMPREHEN METABOLIC PANEL Returned 12/27/2012 12:00 AM ASSAY THYROID STIM HORMONE Returned 12/27/2012 12:00 AM VITAMIN B-12 Returned 12/27/2012 12:00 AM ASSAY OF FERRITIN Returned 12/27/2012 12:00 AM ANTINUCLEAR ANTIBODIES Reviewed 12/27/2012 12:00 AM DNA ANTIBODY [place] Reviewed 12/27/2012 12:00 AM NUCLEAR ANTIGEN ANTIBODY [...] 12:00 AM Decadron, Per 1 Mg [facility]# [address]-21 Reviewed 05/31/2013 12:00 AM Depo-Medrol, Per 80 Mg [facility]#6951-7233-93 Reviewed 05/31/2013 12:00 AM THER/PROPH/DIAG INJ SC/IM Reviewed 06/06/2013 12:00 AM MUSCLE TEST 2 LIMBS Reviewed 06/06/2013 12:00 AM Nerve conduction studies with F-wave Reviewed 08/26/2013 12:00 AM MAMMOGRAM SCREENING Returned 08/26/2013 12:00 AM MAMMOGRAM SCREENING Reviewed 08/30/2013 12:00 AM THER/PROPH/DIAG INJ SC/IM Reviewed 08/30/2013 12:00 AM Decadron, Per 1 Mg [facility]# [address]-87 Reviewed 08/30/2013 12:00 AM Depo-Medrol, Per 80 Mg [facility]#2365-2467-29 Reviewed 11/17/2013 12:00 AM THER/PROPH/DIAG INJ SC/IM Reviewed 11/17/2013 12:00 AM Decadron, Per 1 Mg [facility]# [address]-43 Reviewed 11/17/2013 12:00 AM Depo-Medrol 40mg Reviewed 01/06/2014 12:00 AM THER/PROPH/DIAG INJ SC/IM Reviewed 01/06/2014 12:00 AM Decadron, Per 1 Mg [facility]# [address]-79 Reviewed 01/06/2014 12:00 AM Rocephin 1 gram [facility]#3422-7349-60 Reviewed 01/10/2014 12:00 AM OFFICE/OUTPATIENT VISIT EST [...] 12:00 AM Decadron, Per 1 Mg [facility]# [address]-82 Reviewed 10/12/2014 12:00 AM Depo-Medrol 40mg Reviewed [...] Of Immunizations Name Date Admin Mfg Name Mf Code Trade Name Lot# Route Inj Vis Given Vis Pub CVX Influenza 03/02/2013 sanofi pasteur PMC Fluzone [id number] Intramuscular Left Deltoid 03/02/2013 12/17/2012 141 X 02/28/2014 [employer]ck [employer] MSD Pneumovax 23 [id number] Intramuscular Left Deltoid 02/28/2014 02/27/2009 33 Influenza 03/23/2015 sanofi pasteur PMC Fluzone Quadrivalent [id number] Intramuscular Right Deltoid 03/23/2015 12/29/2014 140 Influenza [...] SI joint pain Sep 01 2012 3:06PM assisted medication use Sep 01 2012 4:05PM Wrist [...] 2:00PM Flu Vaccine Mar 04 2016 3:22PM Payers Insurance Name Company Name Plan Name Plan Number Policy Number Policy Group Number Start Date [employer] [place] [id number] N/A Res Care ResCare [id number] N/A [facility] [id number] N/A [employer] [place] [id number] Saturday, 2011 [employer] [place] [id number] N/A [employer] [place] [id number] Thursday, 2013 R UMR [id number] N/A [facility] [employer] [facility] [id number] N/A History of Encounters Visit Date Visit Type Provider 03/04/2016 Office visit Chelsea Rodríguez APRN 01/14/2016 Office visit Chelsea Rodríguez APRN 01/09/2016 Office visit Leonardo Cowan APRN 01/04/2016 Office visit Leonardo Cowan INVESTMENT ACCOUNTANT 11/27/2015 Office visit Chelsea Rodríguez APRN 08/23/2015 Office visit Chelsea Rodríguez APRN 07/19/2015 Office visit 07/19/2015 Office visit Chelsea Rodríguez APRN 06/21/2015 Office visit Chelsea Rodríguez INVESTMENT ACCOUNTANT 05/03/2015 Nurse visit Adela Cole LICENSED DISPENSING OPTICIAN 04/12/2015 Office visit Adela MMarcus Cole LICENSED DISPENSING OPTICIAN 03/23/2015 Office visit Chelsea Rodríguez INVESTMENT ACCOUNTANT 03/08/2015 Office visit Adela Manjit Cole LICENSED DISPENSING OPTICIAN 02/14/2015 Office visit Leonardo Cowan INVESTMENT ACCOUNTANT 02/08/2015 Office visit Adela AlexMracus Douglas PITTMANP 02/07/2015 Office visit Leonardo Cowan INVESTMENT ACCOUNTANT 01/11/2015 Office visit Adela Cole LICENSED DISPENSING OPTICIAN 12/28/2014 Office visit Chelsea Rodríguez INVESTMENT ACCOUNTANT 12/14/2014 Nurse visit Adela Cole LICENSED DISPENSING OPTICIAN 11/23/2014 Nurse visit Adela Cole LICENSED DISPENSING OPTICIAN 10/26/2014 Office visit Adela Cole LICENSED DISPENSING OPTICIAN 10/12/2014 Office visit 10/12/2014 Office visit Chelsea Rodríguez INVESTMENT ACCOUNTANT 10/05/2014 Nurse visit Adela Cole LICENSED DISPENSING OPTICIAN 09/07/2014 Office visit Adela PITTMANP 08/17/2014 Office visit 08/17/2014 Office visit 08/17/2014 Office visit Chelsea Rodríguez INVESTMENT ACCOUNTANT 08/14/2014 Office visit Adlea PITTMANP 07/27/2014 Office visit Adela PITTMANP 2014 Office visit Adela PITTMANP 2014 Office visit Mica Lr INVESTMENT ACCOUNTANT 06/28/2014 Nurse visit Adela PITTMANP 05/31/2014 Office visit Adela PITTMANP 05/03/2014 Voided Adela PITTMANP 04/26/2014 Office visit Mica Lr INVESTMENT ACCOUNTANT 04/05/2014 Office visit Adela PITTMANP 03/10/2014 Office visit Adela PITTMANP 02/28/2014 Office visit Mica Lr INVESTMENT ACCOUNTANT 02/24/2014 Office visit Adela PITTMANP 02/06/2014 Office visit Adela PITTMANP 01/10/2014 Nurse visit Suzan Liang MD 01/06/2014 Office visit Mica Lr INVESTMENT ACCOUNTANT 12/15/2013 Office visit Adela PITTMANP 11/17/2013 Office visit Chelsea Rodríguez INVESTMENT ACCOUNTANT 11/17/2013 Office visit Adela PITTMANP 10/20/2013 Office visit Adela PITTMANP 09/22/2013 Office visit Adela PITTMANP 08/30/2013 Office visit Chelsea Rodríguez INVESTMENT ACCOUNTANT 08/26/2013 Office visit Beti Reyna INVESTMENT ACCOUNTANT 07/29/2013 Office visit Adela Cole LICENSED DISPENSING OPTICIAN 07/06/2013 Procedures Elmira Campbell MD 07/01/2013 Office visit Adela AlexMarcus Cole LICENSED DISPENSING OPTICIAN 06/06/2013 Office visit Adela Cole LICENSED DISPENSING OPTICIAN 05/31/2013 Office visit Chelsea Rodríguez INVESTMENT ACCOUNTANT 05/11/2013 Office visit Adela Saravia Douglas LICENSED DISPENSING OPTICIAN 03/22/2013 Office visit Adela M. Douglas LICENSED DISPENSING OPTICIAN 03/10/2013 Office visit Adelacatherine Cole LICENSED DISPENSING OPTICIAN 03/04/2013 Office visit Adela Manjit Douglas LICENSED DISPENSING OPTICIAN 03/02/2013 Office visit Odette Elam MD 02/22/2013 Office visit Adela AlexMarcus Cole LICENSED DISPENSING OPTICIAN 01/28/2013 Office visit Chelsea Rodríguez INVESTMENT ACCOUNTANT 01/25/2013 Office visit Adela Manjit Douglas LICENSED DISPENSING OPTICIAN 12/27/2012 Office visit Adela Cole LICENSED DISPENSING OPTICIAN 12/07/2012 Hospital Pablo Croft MD 11/24/2012 Office visit Pablo Croft MD 11/02/2012 Office visit Kylah Wright INVESTMENT ACCOUNTANT 11/02/2012 Office visit Mica Lr INVESTMENT ACCOUNTANT 10/05/2012 Hospital Pablo Croft MD 09/30/2012 Office visit Kylah Wright INVESTMENT ACCOUNTANT 09/01/2012 Office visit Kylah Wright INVESTMENT ACCOUNTANT 07/21/2012 Office visit Odette Elam MD 06/16/2012 [...] Bowens MD 11/12/2011 Office visit Alison Antoine INVESTMENT ACCOUNTANT 10/28/2011 Procedures Reji Bowens MD 10/07/2011 Office [...]
[2018-02-14 11:30] VITALS: BP 121/78
--- OUTSIDE RECORDS SUMMARY | 2018-02-14 11:30 | XMS REPORT ---
Author Chelsea Soliz Organization [facility] Address [address] [place], [place] [address] Care Team Providers Care Esol Teacher Name Role Phone Chelsea Rodríguez PCP [...] per day after meals for 12 weeks Name Start Date Expiration Date SIG Comments [...] route every 6 hours for 30 days [facility] 300 mg [phone] 600 [...] then Take 1 tab x 2 days. 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 History [...] 11/27/2015 12:00 AM Decadron, Per 1 Mg [facility]# [address]-41 Reviewed 11/27/2015 12:00 AM Depo-Medrol 40mg Reviewed [...] and screen Returned 10/29/2011 12:00 AM CYSTOMETROGRAM W/NURSE GENERAL DUTY&UP Reviewed 10/29/2011 12:00 AM ELECTRO-UROFLOWMETRY FIRST Reviewed 10/29/2011 12:00 AM INTRAABDOMINAL PRESSURE TEST Reviewed 11/12/2011 12:00 AM X-RAY URETHRA/BLADDER Reviewed 11/12/2011 12:00 AM X-RAY EXAM SI JOINTS 3/> VWS Reviewed 01/28/2012 12:00 AM MRI LUMBAR SPINE W/O DYE Returned 04/20/2012 12:00 AM THER/PROPH/DIAG INJ SC/IM Reviewed 04/20/2012 12:00 AM Depo-Medrol, Per 120 Mg [facility]#0920-4216-89 Reviewed 07/21/2012 12:00 AM THER/PROPH/DIAG INJ SC/IM Reviewed 07/21/2012 12:00 AM Depo-Medrol, Per 120 Mg [facility]#1947-024[address]-90 Reviewed 09/01/2012 12:00 AM Drug Screen (Non-Medicare) Reviewed 09/01/2012 12:00 AM DRAIN/INJ JOINT/BURSA W/O US Reviewed 09/01/2012 12:00 AM Kenalog, Per 10 Mg [facility]#5305-7353-46 Reviewed 11/02/2012 12:00 AM Norflex, Up to 60 Mg [facility]#12993-830-11 Reviewed 11/02/2012 12:00 AM INJ TRIGGER POINT 1/2 MUSCL Reviewed 11/02/2012 12:00 AM Bupivicaine, 30 ml [facility]#6580-4394-25 Reviewed 11/02/2012 12:00 AM THER/PROPH/DIAG INJ SC/IM Reviewed 11/02/2012 12:00 AM Norflex, Up to 60 Mg [facility]#24697-194-62 Reviewed 12/27/2012 12:00 AM COMPLETE CBC W/AUTO DIFF WBC Returned 12/27/2012 12:00 AM COMPREHEN METABOLIC PANEL Returned 12/27/2012 12:00 AM ASSAY THYROID STIM HORMONE Returned 12/27/2012 12:00 AM VITAMIN B-12 Returned 12/27/2012 12:00 AM ASSAY OF FERRITIN Returned 12/27/2012 12:00 AM ANTINUCLEAR ANTIBODIES Reviewed 12/27/2012 12:00 AM DNA ANTIBODY [place] Reviewed 12/27/2012 12:00 AM NUCLEAR ANTIGEN ANTIBODY [...] 12:00 AM Decadron, Per 1 Mg [facility]# [address]-24 Reviewed 05/31/2013 12:00 AM Depo-Medrol, Per 80 Mg [facility]#0883-9832-85 Reviewed 05/31/2013 12:00 AM THER/PROPH/DIAG INJ SC/IM Reviewed 06/06/2013 12:00 AM MUSCLE TEST 2 LIMBS Reviewed 06/06/2013 12:00 AM Nerve conduction studies with F-wave Reviewed 08/26/2013 12:00 AM MAMMOGRAM SCREENING Returned 08/26/2013 12:00 AM MAMMOGRAM SCREENING Reviewed 08/30/2013 12:00 AM THER/PROPH/DIAG INJ SC/IM Reviewed 08/30/2013 12:00 AM Decadron, Per 1 Mg [facility]# [address]-16 Reviewed 08/30/2013 12:00 AM Depo-Medrol, Per 80 Mg [facility]#8936-6728-97 Reviewed 11/17/2013 12:00 AM THER/PROPH/DIAG INJ SC/IM Reviewed 11/17/2013 12:00 AM Decadron, Per 1 Mg [facility]# [address]-81 Reviewed 11/17/2013 12:00 AM Depo-Medrol 40mg Reviewed 01/06/2014 12:00 AM THER/PROPH/DIAG INJ SC/IM Reviewed 01/06/2014 12:00 AM Decadron, Per 1 Mg [facility]# [address]-51 Reviewed 01/06/2014 12:00 AM Rocephin 1 gram [facility]#8674-3313-00 Reviewed 01/10/2014 12:00 AM OFFICE/OUTPATIENT VISIT EST [...] 10/12/2014 12:00 AM Decadron, Per 1 Mg [facility]# [address]-09 Reviewed 10/12/2014 12:00 AM Depo-Medrol 40mg Reviewed [...] CVX Influenza 03/02/2013 sanofi pasteur PMC Fluzone [id number] Intramuscular Left Deltoid 03/02/2013 12/17/2012 141 X 02/28/2014 Merck & Co., Inc. 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 4:05PM [...] Neuralgia Sep 3 2012 3:35PM Anxiety Disorder Jan 28 2013 8:51AM [...] Group Number Start Date [employer] [place] [id number] N/A Res Care [employer] [id number] N/A [employer] [id number] N/A [employer] [place] [id number] Saturday, 2011 [employer] [place] [id number] N/A [employer] [place] [id number] Thursday, 2013 R UMR [id number] N/A [employer] [facility] [id number] N/A History of Encounters Visit Date Visit [...] Adela PORTER 2014 Office visit Mica Lr FINISHING LAB TECHNICIAN 06/28/2014 Nurse visit Adela Cloe INDUSTRIAL RELATIONS ANALYST 05/31/2014 Office visit Adela Cole INDUSTRIAL RELATIONS ANALYST 05/03/2014 Voided Adela Saravia Douglas INDUSTRIAL RELATIONS ANALYST 04/26/2014 Office visit Mica Lr FINISHING LAB TECHNICIAN 04/05/2014 Office visit Adela Cole INDUSTRIAL RELATIONS ANALYST 03/10/2014 Office visit Adela Cole INDUSTRIAL RELATIONS ANALYST 02/28/2014 Office visit Mica Lr FINISHING LAB TECHNICIAN 02/24/2014 Office visit Adela M. Douglas INDUSTRIAL RELATIONS ANALYST 02/06/2014 Office visit Adela Manjit Douglas INDUSTRIAL RELATIONS ANALYST 01/10/2014 Nurse visit Suzan Liang MD 01/06/2014 Office visit Mica Lr FINISHING LAB TECHNICIAN 12/15/2013 Office visit Adela AlexMarcus Cole INDUSTRIAL RELATIONS ANALYST 11/17/2013 Office visit Chelsea Rodríguez FINISHING LAB TECHNICIAN 11/17/2013 Office visit Adela Cole INDUSTRIAL RELATIONS ANALYST 10/20/2013 Office visit Adela Cole INDUSTRIAL RELATIONS ANALYST 09/22/2013 Office visit Adela Cole INDUSTRIAL RELATIONS ANALYST 08/30/2013 Office visit Chelsea Rodríguez FINISHING LAB TECHNICIAN 08/26/2013 Office visit Beti Reyna FINISHING LAB TECHNICIAN 07/29/2013 Office visit Adela Cole INDUSTRIAL RELATIONS ANALYST 07/06/2013 Procedures Elmira Campbell MD 07/01/2013 Office visit Adela Cole INDUSTRIAL RELATIONS ANALYST 06/06/2013 Office visit Adela Cole INDUSTRIAL RELATIONS ANALYST 05/31/2013 Office visit Chelsea Rodríguez FINISHING LAB TECHNICIAN 05/11/2013 Office visit Adela Cole INDUSTRIAL RELATIONS ANALYST 03/22/2013 Office visit Adela Cole INDUSTRIAL RELATIONS ANALYST 03/10/2013 Office visit Adela Cole INDUSTRIAL RELATIONS ANALYST 03/04/2013 Office visit Adela Cole INDUSTRIAL RELATIONS ANALYST 03/02/2013 Office visit Odette Elam MD 02/22/2013 Office visit Adela Cole INDUSTRIAL RELATIONS ANALYST 01/28/2013 Office visit Chelsea Rodríguez FINISHING LAB TECHNICIAN 01/25/2013 Office visit Adela PITTMANP 12/27/2012 Office visit Adela PITTMANP 12/07/2012 [facility] Pablo Croft MD 11/24/2012 Office visit Pablo Croft MD 11/02/2012 Office visit Kylah Wright FINISHING LAB TECHNICIAN 11/02/2012 Office visit Mica Lr FINISHING LAB TECHNICIAN 10/05/2012 [facility] Pablo Croft MD 09/30/2012 Office visit Kylah Wright FINISHING LAB TECHNICIAN 09/01/2012 Office visit Kylah Wright FINISHING LAB TECHNICIAN 07/21/2012 Office visit Odette Elam MD 06/16/2012 Office visit Pablo Croft MD 05/11/2012 [facility] Pablo Croft MD 04/28/2012 Office visit Pablo Croft MD 04/20/2012 Office visit Odette Elam MD 03/29/2012 Office visit Pablo Croft MD 03/16/2012 [facility] Pablo Croft MD 03/09/2012 [facility] Pablo Croft MD 02/24/2012 [facility] Pablo Croft MD 02/11/2012 Office visit Pablo Croft MD 01/28/2012 Office visit Pablo Croft MD 01/19/2012 Office visit Odtete Elam MD 12/03/2011 Office visit Reji Bowens MD 11/12/2011 Office visit Alison Antoine FINISHING LAB TECHNICIAN 10/28/2011 Procedures Reij Bowens MD 10/07/2011 Office visit Odette Elam MD 09/04/2011 Surgery Reji Bowens MD 08/15/2011 Surgery Reji Bowens MD 07/22/2011 [facility] Naveen Aguilar MD 07/22/2011 [facility] Reji Bowens MD 07/14/2011 Surgery Reji Bowens MD 06/26/2011 Office visit Odette Elam MD 06/24/2011 Office visit Reji Bowens MD 12/04/2010 [facility] Asha Church MD
--- OUTSIDE RECORDS SUMMARY | 2018-02-14 11:32 | XMS REPORT ---
Author Chelsea Soliz [facility] Address [address] [place], [place] [id number] Care Team Providers Care Cow Rider Name Role Phone Chelsea Rodríguez PCP Unavailable Chelsea Rodríguez PreferredProvider Unavailable Allergies and Adverse Reactions Name Reaction Notes Keflex yeast infection does not want to take due to causes yeast infection Plan of Treatment Planned Activity Comments Planned Date Planned Time Plan/Goal Treadmill 06/22/2015 12:00 AM EKG (12-lead electrocardiogram) 06/21/2015 12:00 AM LIPID PANEL 07/31/2016 12:00 AM bilateral foot pain 06/24/2016 1:00 [...] by oral route once daily with food Effexor XR 37.5 mg oral capsule,extended release 24hr 07/11/2016 take 1 capsule (37.5 mg) by oral route once daily with food cyclobenzaprine 10 mg oral tablet 07/30/2016 take 1 tablet by oral route once a day (at bedtime) for 30 days alprazolam 0.5 mg oral tablet 07/30/2016 08/29/2016 take 1 tablet by oral route every 6 hours for 30 days Restoril 15 mg oral capsule 07/31/2016 08/30/2016 take 1 capsule (15 mg) by oral route once daily at bedtime as needed for 30 days Name Start [...] then Take 1 tab x 2 days. 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 Date Ordered Description Order Status 02/14/2015 12:00 AM Orthopedic Consult Reviewed 03/23/2015 12:00 AM FLU VACC 4 RBO 3 YRS PLUS IM Reviewed 03/23/2015 12:00 [...] Decadron, Per 1 Mg [facility]# [address]-30 Reviewed 11/27/2015 12:00 AM Depo-Medrol 40mg Reviewed [...] 12:00 AM Toradol 60 Mg [facility]#0235-3019-33 Reviewed 06/11/2016 12:00 AM Consult/Referral Reviewed 06/11/2016 2:41 PM URINALYSIS AUTO W/O SCOPE Reviewed 06/11/2016 12:00 AM URINE CULTURE/COLONY COUNT Returned 06/13/2016 12:00 AM Splint, prefabricated, wrist or ankle Reviewed 07/31/2016 12:00 AM MAMMOGRAPHY SCREENING, DIGITAL Returned 10/29/2011 12:00 AM CYSTOMETROGRAM W/OFFICE SERVICES CLERK&UP Reviewed 10/29/2011 12:00 AM ELECTRO-UROFLOWMETRY FIRST Reviewed 10/29/2011 12:00 AM INTRAABDOMINAL PRESSURE TEST Reviewed 11/12/2011 12:00 AM X-RAY URETHRA/BLADDER Reviewed 11/12/2011 12:00 AM X-RAY EXAM SI JOINTS 3/> VWS Reviewed 01/28/2012 12:00 AM MRI LUMBAR SPINE W/O DYE Reviewed 04/20/2012 12:00 AM THER/PROPH/DIAG INJ SC/IM Reviewed 04/20/2012 12:00 AM Depo-Medrol, Per 120 Mg [facility]#0313-8284-16 Reviewed 07/21/2012 12:00 AM THER/PROPH/DIAG INJ SC/IM Reviewed 07/21/2012 12:00 AM Depo-Medrol, Per 120 Mg [facility]#7027-8322-77 Reviewed 09/01/2012 12:00 AM Drug Screen (Non-Medicare) Reviewed 09/01/2012 12:00 AM DRAIN/INJ JOINT/BURSA W/O US Reviewed 09/01/2012 12:00 AM Kenalog, Per 10 Mg [facility]#7382-7351-70 Reviewed 11/02/2012 12:00 AM Norflex, Up to 60 Mg [facility]#63392-842-06 Reviewed 11/02/2012 12:00 AM INJ TRIGGER POINT 1/2 MUSCL Reviewed 11/02/2012 12:00 AM Bupivicaine, 30 ml [facility]#3267-5939-18 Reviewed 11/02/2012 12:00 AM THER/PROPH/DIAG INJ SC/IM Reviewed 11/02/2012 12:00 AM Norflex, Up to 60 Mg [facility]#12932-623-10 Reviewed 12/27/2012 12:00 AM COMPLETE CBC W/AUTO DIFF WBC Reviewed 12/27/2012 12:00 AM COMPREHEN METABOLIC PANEL Reviewed 12/27/2012 12:00 AM ASSAY THYROID STIM HORMONE Reviewed 12/27/2012 12:00 AM VITAMIN B-12 Reviewed 12/27/2012 12:00 AM ASSAY OF FERRITIN Reviewed 12/27/2012 12:00 AM ANTINUCLEAR ANTIBODIES Reviewed 12/27/2012 12:00 AM DNA ANTIBODY EKUK Reviewed 12/27/2012 12:00 AM NUCLEAR ANTIGEN ANTIBODY [...] Decadron, Per 1 Mg [facility]# [address]-30 Reviewed 05/31/2013 12:00 AM Depo-Medrol, Per 80 Mg [facility]#2918-7517-10 Reviewed 05/31/2013 12:00 AM THER/PROPH/DIAG INJ SC/IM Reviewed 06/06/2013 12:00 AM MUSCLE TEST 2 LIMBS Reviewed 06/06/2013 12:00 AM Nerve conduction studies with F-wave Reviewed 08/26/2013 12:00 AM MAMMOGRAM SCREENING Reviewed 08/26/2013 12:00 AM MAMMOGRAM SCREENING Reviewed 08/30/2013 12:00 AM THER/PROPH/DIAG INJ SC/IM Reviewed 08/30/2013 12:00 AM Decadron, Per 1 Mg [facility]# [address]-19 Reviewed 08/30/2013 12:00 AM Depo-Medrol, Per 80 Mg [facility]#1560-4229-06 Reviewed 11/17/2013 12:00 AM THER/PROPH/DIAG INJ SC/IM Reviewed 11/17/2013 12:00 AM Decadron, Per 1 Mg [facility]# [address]-60 Reviewed 11/17/2013 12:00 AM Depo-Medrol 40mg Reviewed 01/06/2014 12:00 AM THER/PROPH/DIAG INJ SC/IM Reviewed 01/06/2014 12:00 AM Decadron, Per 1 Mg [facility]# [address]-64 Reviewed 01/06/2014 12:00 AM Rocephin 1 gram [facility]#3432-7464-18 Reviewed 01/10/2014 12:00 AM OFFICE/OUTPATIENT VISIT EST [...] Decadron, Per 1 Mg [facility]# [address]-78 Reviewed 10/12/2014 12:00 AM Depo-Medrol 40mg Reviewed [...] CVX Influenza 03/02/2013 sanofi pasteur PMC Fluzone [id number] Intramuscular Left Deltoid 03/02/2013 12/17/2012 141 X 02/28/2014 Merck [employer] Co., Inc. 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 01 2012 4:05PM [...] ischemic heart disease Jul 31 2016 11:22AM Payers Insurance Name Company Name Plan Name Plan Number Policy Number Policy Group Number Start Date [employer] [place] [id number] N/A [employer] [place] [id number] Thursday, 2011 [employer] [place] [id number] N/A [employer] [place] [id number] Thursday, 2013 UMR UMR [id number] N/A [employer]ums [id number] N/A [employer] [place] [id number] N/A Res Care ResCare [id number] N/A [employer] [id number] N/A [employer] [id number] DOI [id number] May [employer] [place] [id number] N/A History of Encounters Visit Date Visit Type Provider 07/31/2016 Office visit Chelsea Rodríguez SENIOR RESERVOIR ENGINEER 06/11/2016 Office visit Chelsea Rodríguez SENIOR RESERVOIR ENGINEER 06/05/2016 Office visit Leonardo Cowan SENIOR RESERVOIR ENGINEER 05/14/2016 Office visit Chelsea Rodríguez SENIOR RESERVOIR ENGINEER 05/05/2016 Office visit Leonardo Cowan SENIOR RESERVOIR ENGINEER 04/24/2016 Office visit Chelsea Rodríguez SENIOR RESERVOIR ENGINEER 04/07/2016 Office visit Chelsea Rodríguez SENIOR RESERVOIR ENGINEER 03/04/2016 Office visit Chelsea Rodríguez SENIOR RESERVOIR ENGINEER 01/14/2016 Office visit Chelsea Rodríguez SENIOR RESERVOIR ENGINEER 01/09/2016 Office visit Leonardo Cowan SENIOR RESERVOIR ENGINEER 01/04/2016 Office visit Leonardo Cowan SENIOR RESERVOIR ENGINEER 11/27/2015 Office visit Chelsea Rodríguez SENIOR RESERVOIR ENGINEER 08/23/2015 Office visit Chelsea Rodríguez SENIOR RESERVOIR ENGINEER 07/19/2015 Office visit 07/19/2015 Office visit Chelsea Rodríguez SENIOR RESERVOIR ENGINEER 06/21/2015 Office visit Chelsea Rodríguez SENIOR RESERVOIR ENGINEER 05/03/2015 Nurse visit Adela PORTER 04/12/2015 Office visit Adela PORTER 03/23/2015 Office visit Chelsea Rodríguez SENIOR RESERVOIR ENGINEER 03/08/2015 Office visit Adela PORTER 02/14/2015 Office visit Leonardo Cowan SENIOR RESERVOIR ENGINEER 02/08/2015 Office visit Adela PORTER 02/07/2015 Office visit Leonardo Cowan APRN 01/11/2015 Office visit Adela PORTER 12/28/2014 Office visit Chelsea Rodríguez APRN 12/14/2014 Nurse visit Adela PORTER 11/23/2014 Nurse visit Adela PORTER 10/26/2014 Office visit Adela PORTER 10/12/2014 Office visit 10/12/2014 Office visit Chelsea Rodríguez APRN 10/05/2014 Nurse visit Adela PORTER 09/07/2014 Office visit Adela Cole STICKER OPERATOR 08/17/2014 Office visit 08/17/2014 Office visit 08/17/2014 Office visit Chelsea Rodríguez SENIOR RESERVOIR ENGINEER 08/14/2014 Office visit Adela Cole STICKER OPERATOR 07/27/2014 Office visit Adela JohnsonMarcus Douglas STICKER OPERATOR 2014 Office visit Adela JohnsonMarcus Douglas STICKER OPERATOR 2014 Office visit Mica Lr SENIOR RESERVOIR ENGINEER 06/28/2014 Nurse visit Adela Cole STICKER OPERATOR 05/31/2014 Office visit Adela Cole STICKER OPERATOR 05/03/2014 Voided Adela Cole STICKER OPERATOR 04/26/2014 Office visit Mica Lr SENIOR RESERVOIR ENGINEER 04/05/2014 Office visit Adela Cole STICKER OPERATOR 03/10/2014 Office visit Adela Cole STICKER OPERATOR 02/28/2014 Office visit Mica Lr SENIOR RESERVOIR ENGINEER 02/24/2014 Office visit Adela Cole STICKER OPERATOR 02/06/2014 Office visit Adela Cole STICKER OPERATOR 01/10/2014 Nurse visit Suzan Liang MD 01/06/2014 Office visit Mica Lr SENIOR RESERVOIR ENGINEER 12/15/2013 Office visit Adela Cole STICKER OPERATOR 11/17/2013 Office visit Chelsea Rodríguez SENIOR RESERVOIR ENGINEER 11/17/2013 Office visit Adela Cole STICKER OPERATOR 10/20/2013 Office visit Adela Cole STICKER OPERATOR 09/22/2013 Office visit Adela Cole STICKER OPERATOR 08/30/2013 Office visit Chelsea Marcos SENIOR RESERVOIR ENGINEER 08/26/2013 Office visit Beti Reyna SENIOR RESERVOIR ENGINEER 07/29/2013 Office visit Adela Cole STICKER OPERATOR 07/06/2013 Procedures Elmira Campbell MD 07/01/2013 Office visit Adela Cole STICKER OPERATOR 06/06/2013 Office visit Adela Cole STICKER OPERATOR 05/31/2013 Office visit Chelsea Marcos SENIOR RESERVOIR ENGINEER 05/11/2013 Office visit Adela Cole STICKER OPERATOR 03/22/2013 Office visit Adela Cole STICKER OPERATOR 03/10/2013 Office visit Adela PITTMANP 03/04/2013 Office visit Adela Cole STICKER OPERATOR 03/02/2013 Office visit Odette Elam MD 02/22/2013 Office visit Adela PITTMANP 01/28/2013 Office visit Chelsea Rodríguez SENIOR RESERVOIR ENGINEER 01/25/2013 Office visit Adela Cole STICKER OPERATOR 12/27/2012 Office visit Adela Cole STICKER OPERATOR 12/07/2012 [facility] Pablo Croft MD 11/24/2012 Office visit Pablo Croft MD 11/02/2012 Office visit Kylah Wright SENIOR RESERVOIR ENGINEER 11/02/2012 Office visit Mica Lr SENIOR RESERVOIR ENGINEER 10/05/2012 [facility] Pablo Croft MD 09/30/2012 Office visit Kylah Wright SENIOR RESERVOIR ENGINEER 09/01/2012 Office visit Kylah Wright SENIOR RESERVOIR ENGINEER 07/21/2012 Office visit Odette Elam MD 06/16/2012 Office visit Pablo Croft MD 05/11/2012 [facility] Pablo Croft MD 04/28/2012 Office visit Pablo Croft MD 04/20/2012 Office visit Odette Elam MD 03/29/2012 Office visit Pablo Croft MD 03/16/2012 [facility] Pablo Croft MD 03/09/2012 [facility] Pablo Croft MD 02/24/2012 [facility] Pablo Croft MD 02/11/2012 Office visit Pablo Croft MD 01/28/2012 Office visit Pablo Croft MD 01/19/2012 Office visit Odette Elam MD 12/03/2011 Office visit Reji Bowens MD 11/12/2011 Office visit Alison Antoine SENIOR RESERVOIR ENGINEER 10/28/2011 Procedures Reji Bowens MD 10/07/2011 Office [...]
--- OUTSIDE RECORDS SUMMARY | 2018-02-14 11:35 | XMS REPORT ---
Author Dimitri Antoine [facility] Address [address] [place], [place] [id number] Care Team Providers Care Arbitrator Name Role Phone Dimitri Beebe PCP Unavailable Walker, Chelsea PreferredProvider Unavailable Allergies and Adverse Reactions Name [...] ONCE DAILY hydrocodone-acetaminophen 10-325 mg oral tablet Effexor XR [...] then Take 1 tab x 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 [...] 11/27/2015 12:00 AM Decadron, Per 1 Mg [facility]# [address]-83 Reviewed 11/27/2015 12:00 AM Depo-Medrol 40mg Reviewed [...] Reviewed 04/24/2016 12:00 AM Toradol 60 Mg [facility]#6798-9256-29 Reviewed 06/11/2016 12:00 AM Consult/Referral Reviewed 06/11/2016 2:41 PM URINALYSIS AUTO W/O SCOPE Reviewed 06/11/2016 12:00 AM URINE CULTURE/COLONY COUNT Reviewed 06/13/2016 12:00 AM Splint, prefabricated, wrist or ankle Reviewed 07/31/2016 12:00 AM LIPID PANEL Reviewed 07/31/2016 12:00 AM MAMMOGRAPHY SCREENING, DIGITAL Reviewed 10/29/2011 12:00 AM CYSTOMETROGRAM W/ORCHARD PRUNER&UP Reviewed 10/29/2011 12:00 AM ELECTRO-UROFLOWMETRY FIRST Reviewed 10/29/2011 12:00 AM INTRAABDOMINAL PRESSURE TEST Reviewed 11/12/2011 12:00 AM X-RAY URETHRA/BLADDER Reviewed 11/12/2011 12:00 AM X-RAY EXAM SI JOINTS 3/> VWS Reviewed 01/28/2012 12:00 AM MRI LUMBAR SPINE W/O DYE Reviewed 04/20/2012 12:00 AM THER/PROPH/DIAG INJ SC/IM Reviewed 04/20/2012 12:00 AM Depo-Medrol, Per 120 Mg [facility]#3947-1616-17 Reviewed 07/21/2012 12:00 AM THER/PROPH/DIAG INJ SC/IM Reviewed 07/21/2012 12:00 AM Depo-Medrol, Per 120 Mg [facility]#4216-1602-92 Reviewed 09/01/2012 12:00 AM Drug Screen (Non-Medicare) Reviewed 09/01/2012 12:00 AM DRAIN/INJ JOINT/BURSA W/O US Reviewed 09/01/2012 12:00 AM Kenalog, Per 10 Mg [facility]#7796-9511-63 Reviewed 11/02/2012 12:00 AM Norflex, Up to 60 Mg [facility]#18846-694-10 Reviewed 11/02/2012 12:00 AM INJ TRIGGER POINT 1/2 MUSCL Reviewed 11/02/2012 12:00 AM Bupivicaine, 30 ml [facility]#3225-9623-64 Reviewed 11/02/2012 12:00 AM THER/PROPH/DIAG INJ SC/IM Reviewed 11/02/2012 12:00 AM Norflex, Up to 60 Mg [facility]#89868-733-51 Reviewed 12/27/2012 12:00 AM COMPLETE CBC W/AUTO [...] 05/31/2013 12:00 AM Decadron, Per 1 Mg [facility]# [address]-35 Reviewed 05/31/2013 12:00 AM Depo-Medrol, Per 80 Mg [place]#8924-7686-82 Reviewed 05/31/2013 12:00 AM THER/PROPH/DIAG INJ SC/IM Reviewed 06/06/2013 12:00 AM MUSCLE TEST 2 LIMBS Reviewed 06/06/2013 12:00 AM Nerve conduction studies with F-wave Reviewed 08/26/2013 12:00 AM MAMMOGRAM SCREENING Reviewed 08/26/2013 12:00 AM MAMMOGRAM SCREENING Reviewed 08/30/2013 12:00 AM THER/PROPH/DIAG INJ SC/IM Reviewed 08/30/2013 12:00 AM Decadron, Per 1 Mg [place]# [address]-99 Reviewed 08/30/2013 12:00 AM Depo-Medrol, Per 80 Mg [facility]#8154-2791-46 Reviewed 11/17/2013 12:00 AM THER/PROPH/DIAG INJ SC/IM Reviewed 11/17/2013 12:00 AM Decadron, Per 1 Mg ND# [address]-87 Reviewed 11/17/2013 12:00 AM Depo-Medrol 40mg Reviewed 01/06/2014 12:00 AM THER/PROPH/DIAG INJ SC/IM Reviewed 01/06/2014 12:00 AM Decadron, Per 1 Mg [facility]# [address]-93 Reviewed 01/06/2014 12:00 AM Rocephin 1 gram [facility]#2857-3836-85 Reviewed 01/10/2014 12:00 AM OFFICE/OUTPATIENT VISIT EST [...] 10/12/2014 12:00 AM Decadron, Per 1 Mg [facility]# [address]-99 Reviewed 10/12/2014 12:00 AM Depo-Medrol 40mg Reviewed [...] CVX Influenza 03/02/2013 sanofi pasteur PMC Fluzone [id number] Intramuscular Left Deltoid 03/02/2013 12/17/2012 141 X 02/28/2014 Merck & Co., Inc. MSD Pneumovax 23 [id number] Intramuscular Left Deltoid 02/28/2014 02/27/2009 33 Influenza 03/23/2015 sanofi pasteur PMC Fluzone Quadrivalent [id number] Intramuscular Right Deltoid 03/23/2015 12/29/2014 140 Influenza 03/04/2016 [facility] Fluzone Quadrivalent [id number] Intramuscular [...] SI joint pain Sep 01 2012 3:06PM rn long term care medication use Sep 01 2012 4:05PM Wrist [...] 2016 1:57PM Hematoma Jan 31 2017 12:36PM Payers Insurance Name Company Name Plan Name Plan Number Policy Number Policy Group Number Start Date [employer] [facility] [id number] N/A [employer] [place] [id number] Saturday, 2011 [employer] [place] [id number] N/A [employer] [place] [id number] Thursday, 2013 UMR UMR [id number] N/A [employer] Braums [id number] N/A [employer] [place] [id number] N/A Res Care ResCare [id number] N/A [employer] [id number] N/A [employer] [id number] DOI [id number] May [employer] [place] [id number] N/A History of Encounters Visit Date Visit Type Provider 01/31/2017 Office visit Dimitri Beebe NP 11/20/2016 Office visit Chelsea Rodríguez TECHNICIAN'S HELPER 08/29/2016 Office visit Chelsea Rodríguez TECHNICIAN'S HELPER 07/31/2016 Office visit Chelsea Rodríguez TECHNICIAN'S HELPER 06/11/2016 Office visit Chelsea Rodríguez TECHNICIAN'S HELPER 06/05/2016 Office visit Leonardo Cowan TECHNICIAN'S HELPER 05/14/2016 Office visit Chelsea Rodríguez TECHNICIAN'S HELPER 05/05/2016 Office visit Leonardo Cowan TECHNICIAN'S HELPER 04/24/2016 Office visit Chelsea Rodríguez TECHNICIAN'S HELPER 04/07/2016 Office visit Chelsea Rodríguez TECHNICIAN'S HELPER 03/04/2016 Office visit Chelsea Rodríguez TECHNICIAN'S HELPER 01/14/2016 Office visit Chelsea Rodríguez TECHNICIAN'S HELPER 01/09/2016 Office visit Leonardo Cowan TECHNICIAN'S HELPER 01/04/2016 Office visit Leonardo Cowan TECHNICIAN'S HELPER 11/27/2015 Office visit Chelsea Rodríguez TECHNICIAN'S HELPER 08/23/2015 Office visit Chelsea Rodríguez TECHNICIAN'S HELPER 07/19/2015 Office visit 07/19/2015 Office visit Chelsea Rodríguez TECHNICIAN'S HELPER 06/21/2015 Office visit Chelsea Rodríguez TECHNICIAN'S HELPER 05/03/2015 Nurse visit Adela PORTER 04/12/2015 Office visit Adela PORTER 03/23/2015 Office visit Chelsea Rodríguez APRN 03/08/2015 Office visit Adela PORTER 02/14/2015 Office visit Leonardo Cowan APRN 02/08/2015 Office visit Adela PORTER 02/07/2015 Office visit Leonardo Cowan APRN 01/11/2015 Office visit Adela PORTER 12/28/2014 Office visit Chelsea Rodríguez APRN 12/14/2014 Nurse visit Adela PORTER 11/23/2014 Nurse visit Adela Cole GLOBAL PRODUCT MANAGER 10/26/2014 Office visit Adela Cole GLOBAL PRODUCT MANAGER 10/12/2014 Office visit 10/12/2014 Office visit Chelsea Rodríguez TECHNICIAN'S HELPER 10/05/2014 Nurse visit Adela Cole GLOBAL PRODUCT MANAGER 09/07/2014 Office visit Adela Cole GLOBAL PRODUCT MANAGER 08/17/2014 Office visit 08/17/2014 Office visit 08/17/2014 Office visit Chelsea Rodríguez TECHNICIAN'S HELPER 08/14/2014 Office visit Adela Cole GLOBAL PRODUCT MANAGER 07/27/2014 Office visit Adela Cole GLOBAL PRODUCT MANAGER 2014 Office visit Adela Cole GLOBAL PRODUCT MANAGER 2014 Office visit Mica Lr TECHNICIAN'S HELPER 06/28/2014 Nurse visit Adela Cole GLOBAL PRODUCT MANAGER 05/31/2014 Office visit Adela PITTMANP 05/03/2014 Voided Adela Cole GLOBAL PRODUCT MANAGER 04/26/2014 Office visit Mica Lr TECHNICIAN'S HELPER 04/05/2014 Office visit Adela Cole GLOBAL PRODUCT MANAGER 03/10/2014 Office visit Adela PITTMANP 02/28/2014 Office visit Mica Lr TECHNICIAN'S HELPER 02/24/2014 Office visit Adela PITTMANP 02/06/2014 Office visit Adela PITTMANP 01/10/2014 Nurse visit Suzan Liang MD 01/06/2014 Office visit Mica Lr TECHNICIAN'S HELPER 12/15/2013 Office visit Adela Cole GLOBAL PRODUCT MANAGER 11/17/2013 Office visit Chelsea Rodríguez TECHNICIAN'S HELPER 11/17/2013 Office visit Adela Cole GLOBAL PRODUCT MANAGER 10/20/2013 Office visit Adela Cole GLOBAL PRODUCT MANAGER 09/22/2013 Office visit Adela PITTMANP 08/30/2013 Office visit Chelsea Marcos TECHNICIAN'S HELPER 08/26/2013 Office visit Beti Reyna TECHNICIAN'S HELPER 07/29/2013 Office visit dAela Cole GLOBAL PRODUCT MANAGER 07/06/2013 Procedures Elmira Campbell MD 07/01/2013 Office visit Adela Cole GLOBAL PRODUCT MANAGER 06/06/2013 Office visit Adela Cole GLOBAL PRODUCT MANAGER 05/31/2013 Office visit Chelsea Marcos TECHNICIAN'S HELPER 05/11/2013 Office visit Adela Cole GLOBAL PRODUCT MANAGER 03/22/2013 Office visit Adela Cole GLOBAL PRODUCT MANAGER 03/10/2013 Office visit Adelacatherine Cole GLOBAL PRODUCT MANAGER 03/04/2013 Office visit Adela Manjit Douglas GLOBAL PRODUCT MANAGER 03/02/2013 Office visit Odette Elam MD 02/22/2013 Office visit Adela M. Douglas GLOBAL PRODUCT MANAGER 01/28/2013 Office visit Chelsea Rodríguez TECHNICIAN'S HELPER 01/25/2013 Office visit Adelacatherine Cole GLOBAL PRODUCT MANAGER 12/27/2012 Office visit Adela Cole GLOBAL PRODUCT MANAGER 12/07/2012 [facility] Pablo Croft MD 11/24/2012 Office visit Pablo Croft MD 11/02/2012 Office visit Kylah Wright TECHNICIAN'S HELPER 11/02/2012 Office visit Mica Lr TECHNICIAN'S HELPER 10/05/2012 [facility] Pablo Croft MD 09/30/2012 Office visit Kylah Wright TECHNICIAN'S HELPER 09/01/2012 Office visit Kylah Wright TECHNICIAN'S HELPER 07/21/2012 Office visit Odette Elam MD 06/16/2012 Office visit Pablo Croft MD 05/11/2012 [facility] Pablo Croft MD 04/28/2012 Office visit Pablo Croft MD 04/20/2012 Office visit Odette Elam MD 03/29/2012 Office visit Pablo Croft MD 03/16/2012 [facility] Pablo Croft MD 03/09/2012 [facility] Pablo Croft MD 02/24/2012 [facility] Pablo Croft MD 02/11/2012 Office visit Pablo Croft MD 01/28/2012 Office visit Pablo Croft MD 01/19/2012 Office visit Odette Elam MD 12/03/2011 Office visit Reji Bowens MD 11/12/2011 Office visit Alison Antoine TECHNICIAN'S HELPER 10/28/2011 Procedures Reji Bowens MD 10/07/2011 Office visit Odette Elam MD 09/04/2011 Surgery Reji Bowens MD 08/15/2011 Surgery Reji Bowens MD 07/22/2011 [facility] Naveen Aguilar MD 07/22/2011 [facility] Reji Bowens MD 07/14/2011 Surgery Reji Bowens MD 06/26/2011 Office visit Odette Elam MD 06/24/2011 Office visit Reji Bowens MD 12/04/2010 [facility] Geraldine Church MD
--- OUTSIDE RECORDS SUMMARY | 2018-02-14 11:37 | XMS REPORT ---
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 for 30 days Trintellix 10 mg oral tablet 04/07/2016 07/06/2016 take 1 tablet (10 mg) by oral route once daily at the same time each day for 30 days Bactrim DS 800-160 mg oral tablet 04/07/2016 04/14/2016 take 1 tablet by oral route [...] then Take 1 tab x 2 days. 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&UP Reviewed 10/29/2011 12:00 AM ELECTRO-UROFLOWMETRY FIRST Reviewed 10/29/2011 12:00 AM INTRAABDOMINAL PRESSURE TEST Reviewed 11/12/2011 12:00 AM X-RAY URETHRA/BLADDER Reviewed 11/12/2011 12:00 AM X-RAY EXAM SI JOINTS 3/> VWS Reviewed 01/28/2012 12:00 AM MRI LUMBAR SPINE W/O DYE Returned 04/20/2012 12:00 AM THER/PROPH/DIAG INJ SC/IM Reviewed 04/20/2012 12:00 AM Depo-Medrol, Per 120 Mg [facility]#3134-7091-11 Reviewed 07/21/2012 12:00 AM THER/PROPH/DIAG INJ SC/IM Reviewed 07/21/2012 12:00 AM Depo-Medrol, Per 120 Mg [facility]#8949-1685-06 Reviewed 09/01/2012 12:00 AM Drug Screen (Non-Medicare) Reviewed 09/01/2012 12:00 AM DRAIN/INJ JOINT/BURSA W/O US Reviewed 09/01/2012 12:00 AM Kenalog, Per 10 Mg [facility]#5930-2744-95 Reviewed 11/02/2012 12:00 AM Norflex, Up to 60 Mg [facility]#07030-091-55 Reviewed 11/02/2012 12:00 AM INJ TRIGGER POINT 1/2 MUSCL Reviewed 11/02/2012 12:00 AM Bupivicaine, 30 ml [facility]#5774-9416-75 Reviewed 11/02/2012 12:00 AM THER/PROPH/DIAG INJ SC/IM Reviewed 11/02/2012 12:00 AM Norflex, Up to 60 Mg [facility]#89329-975-51 Reviewed 12/27/2012 12:00 AM COMPLETE CBC W/AUTO [...] 12:00 AM Decadron, Per 1 Mg ND# [address]-50 Reviewed 05/31/2013 12:00 AM Depo-Medrol, Per 80 Mg ND#7847-4341-23 Reviewed 05/31/2013 12:00 AM THER/PROPH/DIAG INJ SC/IM Reviewed 06/06/2013 12:00 AM MUSCLE TEST 2 LIMBS Reviewed 06/06/2013 12:00 AM Nerve conduction studies with F-wave Reviewed 08/26/2013 12:00 AM MAMMOGRAM SCREENING Returned 08/26/2013 12:00 AM MAMMOGRAM SCREENING Reviewed 08/30/2013 12:00 AM THER/PROPH/DIAG INJ SC/IM Reviewed 08/30/2013 12:00 AM Decadron, Per 1 Mg ND# [address]-34 Reviewed 08/30/2013 12:00 AM Depo-Medrol, Per 80 Mg ND#5143-4346-02 Reviewed 11/17/2013 12:00 AM THER/PROPH/DIAG INJ SC/IM Reviewed 11/17/2013 12:00 AM Decadron, Per 1 Mg ND# [address]-90 Reviewed 11/17/2013 12:00 AM Depo-Medrol 40mg Reviewed 01/06/2014 12:00 AM THER/PROPH/DIAG INJ SC/IM Reviewed 01/06/2014 12:00 AM Decadron, Per 1 Mg [facility]# [address]-99 Reviewed 01/06/2014 12:00 AM Rocephin 1 gram ND#3963-2995-71 Reviewed 01/10/2014 12:00 AM OFFICE/OUTPATIENT VISIT EST [...] 10/12/2014 12:00 AM Decadron, Per 1 Mg [facility]# [address]-19 Reviewed 10/12/2014 12:00 AM Depo-Medrol 40mg Reviewed [...] CVX Influenza 03/02/2013 sanofi pasteur PMC Fluzone [id number] Intramuscular Left Deltoid 03/02/2013 12/17/2012 141 X 02/28/2014 Merck & Co., Inc. 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 4:05PM Wrist [...] 27 2012 2:08PM Radiculopathy, lumbosacral Sep 3 2013 3:35PM SI joint pain Jan 3 2012 3:35PM Neuralgia Sep 3 2013 [...] cystitis with hematuria Apr 07 2016 9:45AM Payers Insurance Name Company Name Plan Name Plan Number Policy Number Policy Group Number Start Date [employer] [place] [id number] N/A [employer] [id number] N/A [facility] [employer] [id number] N/A [employer] [place] [id number] Saturday, 2011 [employer] [place] [id number] N/A [employer] [place] [id number] Thursday, 2013 UMR UMR [id number] N/A [employer] [id number] N/A History of Encounters Visit Date Visit Type Provider 04/07/2016 Office visit Chelsea Rodríguez CIGARETTE MACHINE FILLER 03/04/2016 Office visit Chelsea Rodríguez CIGARETTE MACHINE FILLER 01/14/2016 Office visit Chelsea Rodríguez CIGARETTE MACHINE FILLER 01/09/2016 Office visit Leonardo Cowan CIGARETTE MACHINE FILLER 01/04/2016 Office visit Leonardo Cowan CIGARETTE MACHINE FILLER 11/27/2015 Office visit Chelsea Rodríguez CIGARETTE MACHINE FILLER 08/23/2015 Office visit Chelsea Rodríguez CIGARETTE MACHINE FILLER 07/19/2015 Office visit 07/19/2015 Office visit Chelsea Rodríguez CIGARETTE MACHINE FILLER 06/21/2015 Office visit Chelsea Rodríguez CIGARETTE MACHINE FILLER 05/03/2015 Nurse visit Adela Cole SENIOR APPLICATION PROGRAMMER 04/12/2015 Office visit Adela Cole SENIOR APPLICATION PROGRAMMER 03/23/2015 Office visit Chelsea Rodríguez CIGARETTE MACHINE FILLER 03/08/2015 Office visit Adela PITTMANP 02/14/2015 Office visit Leonardo Cowan CIGARETTE MACHINE FILLER 02/08/2015 Office visit Adela PITTMANP 02/07/2015 Office visit Leonardo Cowan CIGARETTE MACHINE FILLER 01/11/2015 Office visit Adela PITTMANP 12/28/2014 Office visit Chelsea Rodríguez CIGARETTE MACHINE FILLER 12/14/2014 Nurse visit Adela PITTMANP 11/23/2014 Nurse visit Adela PITTMANP 10/26/2014 Office visit Adela PITTMANP 10/12/2014 Office visit 10/12/2014 Office visit Chelsea Rodríguez CIGARETTE MACHINE FILLER 10/05/2014 Nurse visit Adela PITTMANP 09/07/2014 Office visit Adela PITTMANP 08/17/2014 Office visit 08/17/2014 Office visit 08/17/2014 Office visit Chelsea Rodríguez CIGARETTE MACHINE FILLER 08/14/2014 Office visit Adela PITTMANP 07/27/2014 Office visit Adela PITTMANP 2014 Office visit Adela PITTMANP 2014 Office visit Mica Lr CIGARETTE MACHINE FILLER 06/28/2014 Nurse visit Adela PITTMANP 05/31/2014 Office visit Adela PITTMANP 05/03/2014 Voided Adela PITTMANP 04/26/2014 Office visit Mica Lr CIGARETTE MACHINE FILLER 04/05/2014 Office visit Adela PITTMANP 03/10/2014 Office visit Adela PITTMANP 02/28/2014 Office visit Mica Lr CIGARETTE MACHINE FILLER 02/24/2014 Office visit Adela M. Douglas SENIOR APPLICATION PROGRAMMER 02/06/2014 Office visit Adela Cole SENIOR APPLICATION PROGRAMMER 01/10/2014 Nurse visit Suzan Liang MD 01/06/2014 Office visit Mica Kareem Lr CIGARETTE MACHINE FILLER 12/15/2013 Office visit Adela M. Douglas SENIOR APPLICATION PROGRAMMER 11/17/2013 Office visit Chelsea Rodríguez CIGARETTE MACHINE FILLER 11/17/2013 Office visit Adela JohnsonMarcus Douglas SENIOR APPLICATION PROGRAMMER 10/20/2013 Office visit Adela Cole SENIOR APPLICATION PROGRAMMER 09/22/2013 Office visit Adela Manjit Douglas SENIOR APPLICATION PROGRAMMER 08/30/2013 Office visit Chelsea Rodríguez CIGARETTE MACHINE FILLER 08/26/2013 Office visit Beti Reyna CIGARETTE MACHINE FILLER 07/29/2013 Office visit Adela Cole SENIOR APPLICATION PROGRAMMER 07/06/2013 [facility] Clare Elmira Campbell MD 07/01/2013 Office visit Adela MMarcus Cole SENIOR APPLICATION PROGRAMMER 06/06/2013 Office visit Adela M. Douglas SENIOR APPLICATION PROGRAMMER 05/31/2013 Office visit Chelsea Marcos CIGARETTE MACHINE FILLER 05/11/2013 Office visit Adela Cole SENIOR APPLICATION PROGRAMMER 03/22/2013 Office visit Adela Cole SENIOR APPLICATION PROGRAMMER 03/10/2013 Office visit Adela Cole SENIOR APPLICATION PROGRAMMER 03/04/2013 Office visit Adela Cole SENIOR APPLICATION PROGRAMMER 03/02/2013 Office visit Odette Elam MD 02/22/2013 Office visit Adela Cole SENIOR APPLICATION PROGRAMMER 01/28/2013 Office visit Chelsea Rodríguez CIGARETTE MACHINE FILLER 01/25/2013 Office visit Adela Cole SENIOR APPLICATION PROGRAMMER 12/27/2012 Office visit Adela PITTMANP 12/07/2012 [facility] Pablo Croft MD 11/24/2012 Office visit Pablo Croft MD 11/02/2012 Office visit Kylah Wright CIGARETTE MACHINE FILLER 11/02/2012 Office visit Mica Lr CIGARETTE MACHINE FILLER 10/05/2012 [facility] Pablo Croft MD 09/30/2012 Office visit Kylah Wright CIGARETTE MACHINE FILLER 09/01/2012 Office visit Kylah Wright CIGARETTE MACHINE FILLER 07/21/2012 Office visit Odette Elam MD 06/16/2012 Office visit Pablo Croft MD 05/11/2012 [facility] Pablo Croft MD 04/28/2012 Office visit Pablo Croft MD 04/20/2012 Office visit Odette Elam MD 03/29/2012 Office visit Pablo Croft MD 03/16/2012 [facility] Pablo Croft MD 03/09/2012 [facility] Pablo Croft MD 02/24/2012 [facility] Pablo Croft MD 02/11/2012 Office visit Pablo Croft MD 01/28/2012 Office visit Pablo Croft MD 01/19/2012 Office visit Odette Elam MD 12/03/2011 Office visit Reji Bowens MD 11/12/2011 Office visit Alison Antoine APRN 10/28/2011 Procedures Reji Bowens MD 10/07/2011 Office visit Odette Elam MD 09/04/2011 Surgery Reji Bowens MD 08/15/2011 Surgery Reji Bowens MD 07/22/2011 [facility] Naveen Aguilar MD 07/22/2011 [facility] Reji Bowens MD 07/14/2011 Surgery Reji Bowens MD 06/26/2011 Office visit Odette Elam MD 06/24/2011 Office visit Reji Bowens MD 12/04/2010 [facility] Asha Church MD
--- OUTSIDE RECORDS SUMMARY | 2018-02-14 11:39 | XMS REPORT ---
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 Reviewed 10/29/2011 12:00 AM ELECTRO-UROFLOWMETRY FIRST Reviewed 10/29/2011 12:00 AM INTRAABDOMINAL PRESSURE TEST Reviewed 11/12/2011 12:00 AM X-RAY URETHRA/BLADDER Reviewed 11/12/2011 12:00 AM X-RAY EXAM SI JOINTS 3/> VWS Reviewed 01/28/2012 12:00 AM MRI LUMBAR SPINE W/O DYE Returned 04/20/2012 12:00 AM THER/PROPH/DIAG INJ SC/IM Reviewed 04/20/2012 12:00 AM Depo-Medrol, Per 120 Mg [facility]#6965-8922-11 Reviewed 07/21/2012 12:00 AM THER/PROPH/DIAG INJ SC/IM Reviewed 07/21/2012 12:00 AM Depo-Medrol, Per 120 Mg [facility]#7481-4061-49 Reviewed 09/01/2012 12:00 AM Drug Screen (Non-Medicare) Reviewed 09/01/2012 12:00 AM Kenalog, Per 10 Mg [facility]#0682-0433-22 Reviewed 11/02/2012 12:00 AM Norflex, Up to 60 Mg [facility]#30265-240-53 Reviewed 11/02/2012 12:00 AM INJ TRIGGER POINT 1/2 MUSCL Reviewed 11/02/2012 12:00 AM Bupivicaine, 30 ml [facility]#0829-4344-99 Reviewed 11/02/2012 12:00 AM THER/PROPH/DIAG INJ SC/IM Reviewed 11/02/2012 12:00 AM Norflex, Up to 60 Mg [facility]#85264-879-69 Reviewed 12/27/2012 12:00 AM COMPLETE CBC W/AUTO DIFF WBC Returned 12/27/2012 12:00 AM COMPREHEN METABOLIC PANEL Returned 12/27/2012 12:00 AM ASSAY THYROID STIM HORMONE Returned 12/27/2012 12:00 AM VITAMIN B-12 Returned 12/27/2012 12:00 AM ASSAY OF FERRITIN Returned 12/27/2012 12:00 AM ANTINUCLEAR ANTIBODIES Reviewed 12/27/2012 12:00 AM DNA ANTIBODY PICAYUNE Reviewed 12/27/2012 12:00 AM NUCLEAR ANTIGEN ANTIBODY [...] 05/31/2013 12:00 AM Decadron, Per 1 Mg [facility]# [address]-88 Reviewed 05/31/2013 12:00 AM Depo-Medrol, Per 80 Mg [facility]#5911-4691-01 Reviewed 05/31/2013 12:00 AM THER/PROPH/DIAG INJ SC/IM Reviewed 06/06/2013 12:00 AM MUSCLE TEST 2 LIMBS Reviewed 06/06/2013 12:00 AM Nerve conduction studies with F-wave Reviewed 08/26/2013 12:00 AM MAMMOGRAM SCREENING Returned 08/26/2013 12:00 AM MAMMOGRAM SCREENING Reviewed 08/30/2013 12:00 AM THER/PROPH/DIAG INJ SC/IM Reviewed 08/30/2013 12:00 AM Decadron, Per 1 Mg [facility]# [address]-07 Reviewed 08/30/2013 12:00 AM Depo-Medrol, Per 80 Mg [facility]#9518-3223-89 Reviewed 11/17/2013 12:00 AM THER/PROPH/DIAG INJ SC/IM Reviewed 11/17/2013 12:00 AM Decadron, Per 1 Mg [facility]# [address]-33 Reviewed 11/17/2013 12:00 AM Depo-Medrol 40mg Reviewed 01/06/2014 12:00 AM THER/PROPH/DIAG INJ SC/IM Reviewed 01/06/2014 12:00 AM Decadron, Per 1 Mg [facility]# [address]-74 Reviewed 01/06/2014 12:00 AM Rocephin 1 gram [facility]#2054-2469-52 Reviewed 01/10/2014 12:00 AM OFFICE/OUTPATIENT VISIT EST [...] 10/12/2014 12:00 AM Decadron, Per 1 Mg [facility]# [address]-85 Reviewed 10/12/2014 12:00 AM Depo-Medrol 40mg Reviewed [...] CVX Influenza 03/02/2013 sanofi pasteur PMC Fluzone [id number] Intramuscular Left Deltoid 03/02/2013 12/17/2012 141 Pneumococcal 02/28/2014 Merck & Co., Inc. 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 Wrist [...] Acute lumbar radiculopathy Jul 11 2015 12:44PM Payers Insurance Name Company Name Plan Name Plan Number Policy Number Policy Group Number Start Date R UMR [id number] N[facility] [employer] [facility] [id number] N/A BCBS [employer] [facility] [id number] Saturday, 2011 [employer]BS [employer] [place] [id number] N/A [facility] [id number] Thursday, 2013 History of Encounters Visit Date Visit Type Provider 06/21/2015 Office visit Chelsea Rodríguez SSIS SSRS DEVELOPER 05/03/2015 Nurse visit Adela PITTMANP 04/12/2015 Office visit Adela PITTMANP 03/23/2015 Office visit Chelsea Rodríguez SSIS SSRS DEVELOPER 03/08/2015 Office visit Adela PITTMANP 02/14/2015 Office visit Leonardo Cowan SSIS SSRS DEVELOPER 02/08/2015 Office visit Adela PITTMANP 02/07/2015 Office visit Leonardo Camryn SSIS SSRS DEVELOPER 01/11/2015 Office visit Adela PITTMANP 12/28/2014 Office visit Chelsea Rodríguez SSIS SSRS DEVELOPER 12/14/2014 Nurse visit Adela PITTMANP 11/23/2014 Nurse visit Adela PITTMANP 10/26/2014 Office visit Adela PITTMANP 10/12/2014 Office visit 10/12/2014 Office visit Chelsea Marcos SSIS SSRS DEVELOPER 10/05/2014 Nurse visit Adela PITTMANP 09/07/2014 Office visit Adela PORTER 08/17/2014 Office visit 08/17/2014 Office visit 08/17/2014 Office visit Chelsea Rodríguez SSIS SSRS DEVELOPER 08/14/2014 Office visit Adela PITTMANP 07/27/2014 Office visit Adela PITTMANP 2014 Office visit Adela PITTMANP 2014 Office visit Mica Lr SSIS SSRS DEVELOPER 06/28/2014 Nurse visit Adela PITTMANP 05/31/2014 Office visit Adela PITTMANP 05/03/2014 Voided Adela PORTER 04/26/2014 Office visit Mica Lr SSIS SSRS DEVELOPER 04/05/2014 Office visit Adela PITTMANP 03/10/2014 Office visit Adela PITTMANP 02/28/2014 Office visit Mica Lr SSIS SSRS DEVELOPER 02/24/2014 Office visit Adela PITTMANP 02/06/2014 Office visit Adela PITTMANP 01/10/2014 Nurse visit Suzan Liang MD 01/06/2014 Office visit Mica Lr SSIS SSRS DEVELOPER 12/15/2013 Office visit Adela PITTMANP 11/17/2013 Office visit Chelsea Rodríguez SSIS SSRS DEVELOPER 11/17/2013 Office visit Adela M. Douglas WEB APPLICATIONS ADMINISTRATOR 10/20/2013 Office visit Adela Manjit Douglas WEB APPLICATIONS ADMINISTRATOR 09/22/2013 Office visit Adela Saravia Douglas WEB APPLICATIONS ADMINISTRATOR 08/30/2013 Office visit Chelsea Rodríguez SSIS SSRS DEVELOPER 08/26/2013 Office visit Beti MMarcus Reyna SSIS SSRS DEVELOPER 07/29/2013 Office visit Adela Cole WEB APPLICATIONS ADMINISTRATOR 07/06/2013 [facility] Elmira Campbell MD 07/01/2013 Office visit Adela Saravia Douglas WEB APPLICATIONS ADMINISTRATOR 06/06/2013 Office visit Adelacatherine Cole WEB APPLICATIONS ADMINISTRATOR 05/31/2013 Office visit Chelsea Rodríguez SSIS SSRS DEVELOPER 05/11/2013 Office visit Adela M. Douglas WEB APPLICATIONS ADMINISTRATOR 03/22/2013 Office visit Adela M. Douglas WEB APPLICATIONS ADMINISTRATOR 03/10/2013 Office visit Adelacatherine Cole WEB APPLICATIONS ADMINISTRATOR 03/04/2013 Office visit Adela Manjit Douglas WEB APPLICATIONS ADMINISTRATOR 03/02/2013 Office visit Odette Elam MD 02/22/2013 Office visit Adela Cole WEB APPLICATIONS ADMINISTRATOR 01/28/2013 Office visit Chelsea Rodríguez SSIS SSRS DEVELOPER 01/25/2013 Office visit Adela AlexMarcus Cole WEB APPLICATIONS ADMINISTRATOR 12/27/2012 Office visit Adela Cole WEB APPLICATIONS ADMINISTRATOR 12/07/2012 [facility] Pablo Croft MD 11/24/2012 Office visit Pablo Croft MD 11/02/2012 Office visit Kylah Wright SSIS SSRS DEVELOPER 11/02/2012 Office visit Mica Lr SSIS SSRS DEVELOPER 10/05/2012 [facility] Pablo Croft MD 09/30/2012 Office visit Kylah Wright SSIS SSRS DEVELOPER 09/01/2012 Office visit Kylah Wright SSIS SSRS DEVELOPER 07/21/2012 Office visit Odette Elam MD 06/16/2012 Office visit Pablo Croft MD 05/11/2012 Hospital Pablo Croft MD 04/28/2012 Office visit Pablo Croft MD 04/20/2012 Office visit Odette Elam MD 03/29/2012 Office visit Pablo Croft MD 03/16/2012 [facility] Pablo Croft MD 03/09/2012 [facility] Pablo Croft MD 02/24/2012 [facility] Pablo Croft MD 02/11/2012 Office visit Pablo Croft MD 01/28/2012 Office visit Pablo Croft MD 01/19/2012 Office visit Odette Elam MD 12/03/2011 Office visit Reji Bowens MD 11/12/2011 Office visit Alison Antoine APRN 10/28/2011 Procedures Reji Bowens MD 10/07/2011 Office visit Odette Elam MD 09/04/2011 Surgery Reji Bowens MD 08/15/2011 Surgery Reji Bowens MD 07/22/2011 [facility] Naveen Aguilar MD 07/22/2011 [facility] Reji Bowens MD 07/14/2011 Surgery Reji Bowens MD 06/26/2011 Office visit Odette Elam MD 06/24/2011 Office visit Reji Bowens MD 12/04/2010 [facility] Asha Church MD
--- OUTSIDE RECORDS SUMMARY | 2018-02-14 11:41 | XMS REPORT ---
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 [place] 10-325 mg oral tablet 05/03/2015 06/02/2015 take [...] (75 mg) by oral route once daily bupropion HCl 75 mg oral tablet 03/23/2017 03/23/2017 taper schedule: start 1 tablet daily x7 days, then 1 tablet BID x7 days, then 2 tablets am, 1 tablet PM x7 days, then 2 tablets BID Discontinued Name Start Date Discontinued Date SIG [...] bedtime remain before planned time of waking. 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[facility] [employer] 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 History of [...] 12:00 AM Decadron, Per 1 Mg [facility]# [address]-64 Reviewed 11/27/2015 12:00 AM Depo-Medrol 40mg Reviewed [...] Reviewed 04/24/2016 12:00 AM Toradol 60 Mg [facility]#0768-9108-03 Reviewed 06/11/2016 12:00 AM Consult/Referral Reviewed 06/11/2016 2:41 PM URINALYSIS AUTO W/O SCOPE Reviewed 06/11/2016 12:00 AM URINE CULTURE/COLONY COUNT Reviewed 06/13/2016 12:00 AM Splint, prefabricated, wrist or ankle Reviewed 07/31/2016 12:00 AM LIPID PANEL Reviewed 07/31/2016 12:00 AM MAMMOGRAPHY SCREENING, DIGITAL Reviewed 10/29/2011 12:00 AM CYSTOMETROGRAM W/PRO SHOP ATTENDANT&UP Reviewed 10/29/2011 12:00 AM ELECTRO-UROFLOWMETRY FIRST Reviewed [...] 12:00 AM IMMUNIZATION ADMIN EACH ADD Reviewed 04/20/2012 12:00 AM THER/PROPH/DIAG INJ SC/IM Reviewed 04/20/2012 12:00 AM Depo-Medrol, Per 120 Mg [facility]#3669-1013-04 Reviewed 07/21/2012 12:00 AM THER/PROPH/DIAG INJ SC/IM Reviewed 07/21/2012 12:00 AM Depo-Medrol, Per 120 Mg [facility]#3531-1180-70 Reviewed 09/01/2012 12:00 AM Drug Screen (Non-Medicare) Reviewed 09/01/2012 12:00 AM DRAIN/INJ JOINT/BURSA W/O US Reviewed 09/01/2012 12:00 AM Kenalog, Per 10 Mg [facility]#7352-7810-03 Reviewed 11/02/2012 12:00 AM Norflex, Up to 60 Mg [facility]#61739-399-03 Reviewed 11/02/2012 12:00 AM INJ TRIGGER POINT 1/2 MUSCL Reviewed 11/02/2012 12:00 AM Bupivicaine, 30 ml [facility]#6790-1087-68 Reviewed 11/02/2012 12:00 AM THER/PROPH/DIAG INJ SC/IM Reviewed 11/02/2012 12:00 AM Norflex, Up to 60 Mg [facility]#58020-056-79 Reviewed 12/27/2012 12:00 AM COMPLETE CBC W/AUTO DIFF WBC Reviewed 12/27/2012 12:00 AM COMPREHEN METABOLIC PANEL Reviewed 12/27/2012 12:00 AM ASSAY THYROID STIM HORMONE Reviewed 12/27/2012 12:00 AM VITAMIN B-12 Reviewed 12/27/2012 12:00 AM ASSAY OF FERRITIN Reviewed 12/27/2012 12:00 AM ANTINUCLEAR ANTIBODIES Reviewed 12/27/2012 12:00 AM DNA ANTIBODY [place] Reviewed 12/27/2012 12:00 AM NUCLEAR ANTIGEN ANTIBODY [...] 12:00 AM Decadron, Per 1 Mg [facility]# [address]-69 Reviewed 05/31/2013 12:00 AM Depo-Medrol, Per 80 Mg [facility]#7547-4866-93 Reviewed 05/31/2013 12:00 AM THER/PROPH/DIAG INJ SC/IM Reviewed 06/06/2013 12:00 AM MUSCLE TEST 2 LIMBS Reviewed 06/06/2013 12:00 AM Nerve conduction studies with F-wave Reviewed 08/26/2013 12:00 AM MAMMOGRAM SCREENING Reviewed 08/26/2013 12:00 AM MAMMOGRAM SCREENING Reviewed 08/30/2013 12:00 AM THER/PROPH/DIAG INJ SC/IM Reviewed 08/30/2013 12:00 AM Decadron, Per 1 Mg [facility]# [address]-45 Reviewed 08/30/2013 12:00 AM Depo-Medrol, Per 80 Mg [facility]#6077-2099-00 Reviewed 11/17/2013 12:00 AM THER/PROPH/DIAG INJ SC/IM Reviewed 11/17/2013 12:00 AM Decadron, Per 1 Mg [facility]# [address]-48 Reviewed 11/17/2013 12:00 AM Depo-Medrol 40mg Reviewed 01/06/2014 12:00 AM THER/PROPH/DIAG INJ SC/IM Reviewed 01/06/2014 12:00 AM Decadron, Per 1 Mg [facility]# [address]-30 Reviewed 01/06/2014 12:00 AM Rocephin 1 gram [facility]#4705-5749-03 Reviewed 01/10/2014 12:00 AM OFFICE/OUTPATIENT VISIT EST [...] 12:00 AM Decadron, Per 1 Mg [facility]# [address]-80 Reviewed 10/12/2014 12:00 AM Depo-Medrol 40mg Reviewed [...] CVX Influenza 03/02/2013 sanofi pasteur PMC Fluzone [id number] Intramuscular Left Deltoid 03/02/2013 12/17/2012 141 X 02/28/2014 Merck & Co., Inc. 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 Sep 01 2012 4:05PM Wrist [...] Sep 3 2012 3:35PM Anxiety Disorder Jan 6 [...] 10:55AM Weight gain Feb 20 2017 10:55AM Payers Insurance Name Company Name Plan Name Plan Number Policy Number Policy Group Number Start Date [employer] [place] [id number] N/A [employer] [place] [id number] Saturday, 2011 [employer] [place] [id number] N/A [employer] [place] [id number] Thursday, 2013 UMR UMR [id number] N/A [employer] [id number] N/A [employer] [place] [id number] N/A Res Care [employer] [id number] N/A [employer] [id number] N/A Res Care [employer] [id number] DOI [id number] May [employer] [place] [id number] N/A History of Encounters Visit Date Visit Type Provider 02/20/2017 Office visit Chelsea Rodríguez [employer] BLOCK[employer]ID LABOR 02/10/2017 Office visit Jeremy West DO 01/31/2017 Office visit Dimitri Beebe NP 11/20/2016 Office visit Chelsea Rodríguez [employer] LABOR 08/29/2016 Office visit Chelsea Rodríguez [employer] AID LABOR 07/31/2016 Office visit Chelsea Rodríguez [employer] AID LABOR 06/11/2016 Office visit Chelsea Rodríguez [employer] AND BLOCKER AID LABOR 06/05/2016 Office visit Leonardo Cowan BRICK AND BLOCKER AID LABOR 05/14/2016 Office visit Chelsea Rodríguez BR[employer] AND BLOCKER AID LABOR 05/05/2016 Office visit Leonardo Cowan BRICK AND BLOCKER AID LABOR 04/24/2016 Office visit Chelsea Rodríguez [employer] AND BLOCKER AID LABOR 04/07/2016 Office visit Chelsea Rodríguez [employer] AND BLOCKER AID LABOR 03/04/2016 Office visit Chelsea Rodríguez BR[employer] AND BLOCKER AID LABOR 01/14/2016 Office visit Chelsea Rodríguez BR[employer] AND BLOCKER AID LABOR 01/09/2016 Office visit Leonardo Cowan BR[employer] AND BLOCKER AID LABOR 01/04/2016 Office visit Leonardo Cowan BR[employer] AND BLOCKER AID LABOR 11/27/2015 Office visit Chelsea Rodríguez [employer] AND BLOCK[employer] AID LABOR 08/23/2015 Office visit Chelsea Rodríguez [employer] AID LABOR 07/19/2015 Office visit 07/19/2015 Office visit Chelsea Rodríguez [employer] AID LABOR 06/21/2015 Office visit Chelsea Rodríguez [employer] BLOCK[employer] AID LABOR 05/03/2015 Nurse visit Adela PORTER 04/12/2015 Office visit Adela Cole RESIDENTIAL LEASING MANAGER 03/23/2015 Office visit Chelsea Rodríguez [employer] AID LABOR 03/08/2015 Office visit Adela Cole RESIDENTIAL LEASING MANAGER 02/14/2015 Office visit eLonardo Cowan BRICK AND BLOCKER AID LABOR 02/08/2015 Office visit Adela M. Douglas PITTMANP 02/07/2015 Office visit Leonardo Cowan BRICK AND BLOCKER AID LABOR 01/11/2015 Office visit Adela Cole RESIDENTIAL LEASING MANAGER 12/28/2014 Office visit Chelsea Rodríguez [employer] AND BLOCK[employer] AID LABOR 12/14/2014 Nurse visit Adela Cole RESIDENTIAL LEASING MANAGER 11/23/2014 Nurse visit Adela Cole RESIDENTIAL LEASING MANAGER 10/26/2014 Office visit Adela Cole RESIDENTIAL LEASING MANAGER 10/12/2014 Office visit 10/12/2014 Office visit Chelsea Rodríguez [employer] AND BLOCK[employer] AID LABOR 10/05/2014 Nurse visit Adela Cole RESIDENTIAL LEASING MANAGER 09/07/2014 Office visit Adela PITTMANP 08/17/2014 Office visit 08/17/2014 Office visit 08/17/2014 Office visit Chelsea Rodríguez [employer] AND BLOCK[employer] AID LABOR 08/14/2014 Office visit Adela PITTMANP 07/27/2014 Office visit Adela PITTMANP 2014 Office visit Adela PITTMANP 2014 Office visit Mica Lr BR[employer] AND BLOCKER AID LABOR 06/28/2014 Nurse visit Adela PITTMANP 05/31/2014 Office visit Adela Cole RESIDENTIAL LEASING MANAGER 05/03/2014 Voided Adela PITTMANP 04/26/2014 Office visit Mica Lr [employer] AND BLOCKER AID LABOR 04/05/2014 Office visit Adela PITTMANP 03/10/2014 Office visit Adela PITTMANP 02/28/2014 Office visit Mica Lr BR[employer] AND BLOCKER AID LABOR 02/24/2014 Office visit Adela PITTMANP 02/06/2014 Office visit Adela PITTMANP 01/10/2014 Nurse visit Suzan Liang MD 01/06/2014 Office visit Mica Lr [employer] BLOCK[employer] AID LABOR 12/15/2013 Office visit Adela PITTMANP 11/17/2013 Office visit Chelsea Rodríguez [employer] BLOCK[employer] AID LABOR 11/17/2013 Office visit Adela PITTMANP 10/20/2013 Office visit Adela PITTMANP 09/22/2013 Office visit Adela PITTMANP 08/30/2013 Office visit Chelsea Rodríguez [employer] AND BLOCK[employer] AID LABOR 08/26/2013 Office visit Beti MMarcus Reyna BRICK AND BLOCKER AID LABOR 07/29/2013 Office visit Adela Cole RESIDENTIAL LEASING MANAGER 07/06/2013 Procedures Elmira Campbell MD 07/01/2013 Office visit Adela Cole RESIDENTIAL LEASING MANAGER 06/06/2013 Office visit Adela Cole RESIDENTIAL LEASING MANAGER 05/31/2013 Office visit Chelsea Rodríguez [employer] BLOCK[employer] AID LABOR 05/11/2013 Office visit Adela Cole RESIDENTIAL LEASING MANAGER 03/22/2013 Office visit Adela Cole RESIDENTIAL LEASING MANAGER 03/10/2013 Office visit Adela Cole RESIDENTIAL LEASING MANAGER 03/04/2013 Office visit Adela Cole RESIDENTIAL LEASING MANAGER 03/02/2013 Office visit Odette Elam MD 02/22/2013 Office visit Adela Cole RESIDENTIAL LEASING MANAGER 01/28/2013 Office visit Chelsea Rodríguez [employer] AND BLOCKER AID LABOR 01/25/2013 Office visit Adela PITTMANP 12/27/2012 Office visit Adela Cole RESIDENTIAL LEASING MANAGER 12/07/2012 Hospital Pablo Croft MD 11/24/2012 Office visit Pablo Croft MD 11/02/2012 Office visit Kylah Wright BR[employer] AND BLOCKER AID LABOR 11/02/2012 Office visit Mica Lr BR[employer] AND BLOCKER AID LABOR 10/05/2012 Hospital Pablo Croft MD 09/30/2012 Office visit Kylah Wright BRICK AND BLOCKER AID LABOR 09/01/2012 Office visit Kylah Wright BRICK AND BLOCKER AID LABOR 07/21/2012 Office visit Odette Elam MD 06/16/2012 [...] Bowens MD 11/12/2011 Office visit Alison Antoine BR[employer] AND BLOCKER AID LABOR 10/28/2011 Procedures Reji Bowens MD 10/07/2011 Office [...]
--- OUTSIDE RECORDS SUMMARY | 2018-02-14 11:43 | XMS REPORT ---
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 Take only if at least 7 hrs of bedtime remain before planned time of waking. gabapentin 100 mg oral capsule 08/23/2015 09/22/2015 take 1 capsule by oral route 3 times a day for 30 days alprazolam 0.5 mg oral tablet 09/26/2015 12/25/2015 take 1 tablet by oral route every 6 hours for 30 days Name Start Date Expiration [...] then Take 1 tab x 2 days. 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 [...] 07/19/2015 12:00 AM MAMMOGRAM BOTH BREASTS Returned 06/24/2011 12:00 AM ASSAY THYROID STIM [...] and screen Returned 10/29/2011 12:00 AM CYSTOMETROGRAM W/GROUP FITNESS MANAGER&UP Reviewed 10/29/2011 12:00 AM ELECTRO-UROFLOWMETRY FIRST Reviewed 10/29/2011 12:00 AM INTRAABDOMINAL PRESSURE TEST Reviewed 11/12/2011 12:00 AM X-RAY URETHRA/BLADDER Reviewed 11/12/2011 12:00 AM X-RAY EXAM SI JOINTS 3/> VWS Reviewed 01/28/2012 12:00 AM MRI LUMBAR SPINE W/O DYE Returned 04/20/2012 12:00 AM THER/PROPH/DIAG INJ SC/IM Reviewed 04/20/2012 12:00 AM Depo-Medrol, Per 120 Mg [facility]#4169-4636-02 Reviewed 07/21/2012 12:00 AM THER/PROPH/DIAG INJ SC/IM Reviewed 07/21/2012 12:00 AM Depo-Medrol, Per 120 Mg [facility]#5234-9548-70 Reviewed 09/01/2012 12:00 AM Drug Screen (Non-Medicare) Reviewed 09/01/2012 12:00 AM Kenalog, Per 10 Mg [facility]#7354-3505-17 Reviewed 11/02/2012 12:00 AM Norflex, Up to 60 Mg [facility]#76452-930-73 Reviewed 11/02/2012 12:00 AM INJ TRIGGER POINT 1/2 MUSCL Reviewed 11/02/2012 12:00 AM Bupivicaine, 30 ml [facility]#6504-6800-82 Reviewed 11/02/2012 12:00 AM THER/PROPH/DIAG INJ SC/IM Reviewed 11/02/2012 12:00 AM Norflex, Up to 60 Mg [facility]#64923-490-12 Reviewed 12/27/2012 12:00 AM COMPLETE CBC W/AUTO DIFF WBC Returned 12/27/2012 12:00 AM COMPREHEN METABOLIC PANEL Returned 12/27/2012 12:00 AM ASSAY THYROID STIM HORMONE Returned 12/27/2012 12:00 AM VITAMIN B-12 Returned 12/27/2012 12:00 AM ASSAY OF FERRITIN Returned 12/27/2012 12:00 AM ANTINUCLEAR ANTIBODIES Reviewed 12/27/2012 12:00 AM DNA ANTIBODY [place] Reviewed 12/27/2012 12:00 AM NUCLEAR ANTIGEN ANTIBODY [...] 12:00 AM Decadron, Per 1 Mg [place]# [address]-99 Reviewed 05/31/2013 12:00 AM Depo-Medrol, Per 80 Mg [facility]#0249-0931-11 Reviewed 05/31/2013 12:00 AM THER/PROPH/DIAG INJ SC/IM Reviewed 06/06/2013 12:00 AM MUSCLE TEST 2 LIMBS Reviewed 06/06/2013 12:00 AM Nerve conduction studies with F-wave Reviewed 08/26/2013 12:00 AM MAMMOGRAM SCREENING Returned 08/26/2013 12:00 AM MAMMOGRAM SCREENING Reviewed 08/30/2013 12:00 AM THER/PROPH/DIAG INJ SC/IM Reviewed 08/30/2013 12:00 AM Decadron, Per 1 Mg [place]# [address]-96 Reviewed 08/30/2013 12:00 AM Depo-Medrol, Per 80 Mg [facility]#7116-8666-98 Reviewed 11/17/2013 12:00 AM THER/PROPH/DIAG INJ SC/IM Reviewed 11/17/2013 12:00 AM Decadron, Per 1 Mg [facility]# [address]-85 Reviewed 11/17/2013 12:00 AM Depo-Medrol 40mg Reviewed 01/06/2014 12:00 AM THER/PROPH/DIAG INJ SC/IM Reviewed 01/06/2014 12:00 AM Decadron, Per 1 Mg [facility]# [address]-76 Reviewed 01/06/2014 12:00 AM Rocephin 1 gram [facility]#2484-0355-01 Reviewed 01/10/2014 12:00 AM OFFICE/OUTPATIENT VISIT EST [...] 10/12/2014 12:00 AM Decadron, Per 1 Mg [facility]# [address]-09 Reviewed 10/12/2014 12:00 AM Depo-Medrol 40mg Reviewed [...] CVX Influenza 03/02/2013 sanofi pasteur PMC Fluzone [id number] Intramuscular Left Deltoid 03/02/2013 12/17/2012 141 X 02/28/2014 Merck & Co., Inc. MSD Pneumovax 23 [id number] Intramuscular Left Deltoid 02/28/2014 02/27/2009 33 Influenza 03/23/2015 sanofi pasteur PMC Fluzone Quadrivalent [id number] Intramuscular Right Deltoid 03/23/2015 12/29/2014 140 History [...] with right-sided sciatica Aug 23 2015 8:26AM Payers Insurance Name Company Name Plan Name Plan Number Policy Number Policy Group Number Start Date [facility] UMR [id number] N/A [facility] [employer] [facility] [id number] N/A [employer] [facility] [id number] Saturday, 2011 [employer] [place] [id number] N/A [employer] [place] [id number] Thursday, 2013 History of Encounters Visit Date Visit Type Provider 08/23/2015 Office visit Chelsea Rodríguez APRN 07/19/2015 Office visit 07/19/2015 Office visit Chelsea Rodríguez APRN 06/21/2015 Office visit Chelsea Rodríguez APRN 05/03/2015 Nurse visit Adela PORTER 04/12/2015 Office visit Adela PORTER 03/23/2015 Office visit Chelsea Rodríguez APRN 03/08/2015 Office visit Adela PORTER 02/14/2015 Office visit Leonardo Cowan APRN 02/08/2015 Office visit Adela MMarcus Cole DATA SECURITY COORDINATOR 02/07/2015 Office visit Leonardo Cowan DECK LID FITTER 01/11/2015 Office visit Adela Cole DATA SECURITY COORDINATOR 12/28/2014 Office visit Chelsea Rodríguez DECK LID FITTER 12/14/2014 Nurse visit Adela Cole DATA SECURITY COORDINATOR 11/23/2014 Nurse visit Adela Cole DATA SECURITY COORDINATOR 10/26/2014 Office visit Adela PITTMANP 10/12/2014 Office visit 10/12/2014 Office visit Chelsea Rodríguez DECK LID FITTER 10/05/2014 Nurse visit Adela Cole DATA SECURITY COORDINATOR 09/07/2014 Office visit Adela Cole DATA SECURITY COORDINATOR 08/17/2014 Office visit 08/17/2014 Office visit 08/17/2014 Office visit Chelsea Rodríguez DECK LID FITTER 08/14/2014 Office visit Adela Cole DATA SECURITY COORDINATOR 07/27/2014 Office visit Adela Cole DATA SECURITY COORDINATOR 2014 Office visit Adela PITTMANP 2014 Office visit Mica Lr DECK LID FITTER 06/28/2014 Nurse visit Adela PITTMANP 05/31/2014 Office visit Adela PITTMANP 05/03/2014 Voided Adela PITTMANP 04/26/2014 Office visit Mica Lr DECK LID FITTER 04/05/2014 Office visit Adela PITTMANP 03/10/2014 Office visit Adela PITTMANP 02/28/2014 Office visit Mica Lr DECK LID FITTER 02/24/2014 Office visit Adela PITTMANP 02/06/2014 Office visit Adela PITTMANP 01/10/2014 Nurse visit Suzan Liang MD 01/06/2014 Office visit Mica Lr DECK LID FITTER 12/15/2013 Office visit Adela PITTMANP 11/17/2013 Office visit Chelsea Marcos DECK LID FITTER 11/17/2013 Office visit Adela PITTMANP 10/20/2013 Office visit Adela PITTMANP 09/22/2013 Office visit Adela PITTMANP 08/30/2013 Office visit Chelsea Rodríguez DECK LID FITTER 08/26/2013 Office visit Beti Reyna DECK LID FITTER 07/29/2013 Office visit Adela PITTMANP 07/06/2013 Procedures Elmira Campbell MD 07/01/2013 Office visit Adela AlexMarcus Cole DATA SECURITY COORDINATOR 06/06/2013 Office visit Adela AlexMarcus Cole DATA SECURITY COORDINATOR 05/31/2013 Office visit Chelsea Rodríguez DECK LID FITTER 05/11/2013 Office visit Adela AlexMarcus Cole DATA SECURITY COORDINATOR 03/22/2013 Office visit Adela M. Douglas DATA SECURITY COORDINATOR 03/10/2013 Office visit Adela M. Douglas DATA SECURITY COORDINATOR 03/04/2013 Office visit Adela Cole DATA SECURITY COORDINATOR 03/02/2013 Office visit Odette Elam MD 02/22/2013 Office visit Adela Cole DATA SECURITY COORDINATOR 01/28/2013 Office visit Chelsea Rodríguez DECK LID FITTER 01/25/2013 Office visit Adela Manjit Douglas DATA SECURITY COORDINATOR 12/27/2012 Office visit Adela Cole DATA SECURITY COORDINATOR 12/07/2012 [facility] Pablo Croft MD 11/24/2012 Office visit Pablo Croft MD 11/02/2012 Office visit Kylah Wright DECK LID FITTER 11/02/2012 Office visit Mica Lr DECK LID FITTER 10/05/2012 [facility] Pablo Croft MD 09/30/2012 Office visit Kylah Wright DECK LID FITTER 09/01/2012 Office visit Kylah Wright DECK LID FITTER 07/21/2012 Office visit Odette Elam MD 06/16/2012 [...] Bowens MD 11/12/2011 Office visit Alison Antoine DECK LID FITTER 10/28/2011 Procedures Reji Bowens MD 10/07/2011 Office [...]
--- OUTSIDE RECORDS SUMMARY | 2018-02-14 11:45 | XMS REPORT ---
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 Ceres 10-325 mg oral tablet 05/03/2015 06/02/2015 take [...] 12:00 AM Decadron, Per 1 Mg [facility]# [address]-37 Reviewed 11/27/2015 12:00 AM Depo-Medrol 40mg Reviewed [...] and screen Returned 10/29/2011 12:00 AM CYSTOMETROGRAM W/TRAFFIC ANALYSIS TECHNICIAN&UP Reviewed 10/29/2011 12:00 AM ELECTRO-UROFLOWMETRY FIRST Reviewed 10/29/2011 12:00 AM INTRAABDOMINAL PRESSURE TEST Reviewed 11/12/2011 12:00 AM X-RAY URETHRA/BLADDER Reviewed 11/12/2011 12:00 AM X-RAY EXAM SI JOINTS 3/> VWS Reviewed 01/28/2012 12:00 AM MRI LUMBAR SPINE W/O DYE Returned 04/20/2012 12:00 AM THER/PROPH/DIAG INJ SC/IM Reviewed 04/20/2012 12:00 AM Depo-Medrol, Per 120 Mg [facility]#4537-4660-13 Reviewed 07/21/2012 12:00 AM THER/PROPH/DIAG INJ SC/IM Reviewed 07/21/2012 12:00 AM Depo-Medrol, Per 120 Mg [facility]#4453-6778-98 Reviewed 09/01/2012 12:00 AM Drug Screen (Non-Medicare) Reviewed 09/01/2012 12:00 AM DRAIN/INJ JOINT/BURSA W/O US Reviewed 09/01/2012 12:00 AM Kenalog, Per 10 Mg [facility]#4641-4373-55 Reviewed 11/02/2012 12:00 AM Norflex, Up to 60 Mg [facility]#39343-015-22 Reviewed 11/02/2012 12:00 AM INJ TRIGGER POINT 1/2 MUSCL Reviewed 11/02/2012 12:00 AM Bupivicaine, 30 ml [facility]#6942-8338-69 Reviewed 11/02/2012 12:00 AM THER/PROPH/DIAG INJ SC/IM Reviewed 11/02/2012 12:00 AM Norflex, Up to 60 Mg [facility]#79197-377-92 Reviewed 12/27/2012 12:00 AM COMPLETE CBC W/AUTO DIFF WBC Returned 12/27/2012 12:00 AM COMPREHEN METABOLIC PANEL Returned 12/27/2012 12:00 AM ASSAY THYROID STIM HORMONE Returned 12/27/2012 12:00 AM VITAMIN B-12 Returned 12/27/2012 12:00 AM ASSAY OF FERRITIN Returned 12/27/2012 12:00 AM ANTINUCLEAR ANTIBODIES Reviewed 12/27/2012 12:00 AM DNA ANTIBODY [place] Reviewed 12/27/2012 12:00 AM NUCLEAR ANTIGEN ANTIBODY [...] 05/31/2013 12:00 AM Decadron, Per 1 Mg [facility]# [address]-94 Reviewed 05/31/2013 12:00 AM Depo-Medrol, Per 80 Mg [place]#6159-5295-15 Reviewed 05/31/2013 12:00 AM THER/PROPH/DIAG INJ SC/IM Reviewed 06/06/2013 12:00 AM MUSCLE TEST 2 LIMBS Reviewed 06/06/2013 12:00 AM Nerve conduction studies with F-wave Reviewed 08/26/2013 12:00 AM MAMMOGRAM SCREENING Returned 08/26/2013 12:00 AM MAMMOGRAM SCREENING Reviewed 08/30/2013 12:00 AM THER/PROPH/DIAG INJ SC/IM Reviewed 08/30/2013 12:00 AM Decadron, Per 1 Mg [place]# [address]-01 Reviewed 08/30/2013 12:00 AM Depo-Medrol, Per 80 Mg [facility]#3201-0139-81 Reviewed 11/17/2013 12:00 AM THER/PROPH/DIAG INJ SC/IM Reviewed 11/17/2013 12:00 AM Decadron, Per 1 Mg ND# [address]-23 Reviewed 11/17/2013 12:00 AM Depo-Medrol 40mg Reviewed 01/06/2014 12:00 AM THER/PROPH/DIAG INJ SC/IM Reviewed 01/06/2014 12:00 AM Decadron, Per 1 Mg [facility]# [address]-92 Reviewed 01/06/2014 12:00 AM Rocephin 1 gram [facility]#3541-3013-77 Reviewed 01/10/2014 12:00 AM OFFICE/OUTPATIENT VISIT EST [...] 12:00 AM Decadron, Per 1 Mg [facility]# [address]-92 Reviewed 10/12/2014 12:00 AM Depo-Medrol 40mg Reviewed [...] CVX Influenza 03/02/2013 san[employer] PMC Fluzone [id number] Intramuscular Left Deltoid 03/02/2013 12/17/2012 141 X 02/28/2014 [employer] MSD Pneumovax 23 [id number] Intramuscular Left Deltoid 02/28/2014 02/27/2009 33 Influenza 03/23/2015 sanofi pasteur PMC Fluzone Quadrivalent [id number] Intramuscular Right Deltoid 03/23/2015 12/29/2014 140 History [...] Group Number Start Date [employer] [place] [id number] N/A Res Care ResCare [id number] N/A [employer] [place] [id number] Thursday, 2011 [employer] [place] [id number] N/A [employer] [place] [id number] Thursday, 2013 [facility] UMR [id number] N/A [facility] [employer] [facility] [id number] N/A History of Encounters Visit Date Visit Type Provider 01/14/2016 Office visit Chelsea Rodríguez AIR EXPORT COORDINATOR 01/09/2016 Office visit Leonardo Cowan AIR EXPORT COORDINATOR 01/04/2016 Office visit Leonardo Cowan AIR EXPORT COORDINATOR 11/27/2015 Office visit Chelsea Rodríguez AIR EXPORT COORDINATOR 08/23/2015 Office visit Chelsea Rodríguez AIR EXPORT COORDINATOR 07/19/2015 Office visit 07/19/2015 Office visit Chelsea Rodríguez AIR EXPORT COORDINATOR 06/21/2015 Office visit Chelsea Rodríguez AIR EXPORT COORDINATOR 05/03/2015 Nurse visit Adela Cole END POLISHER 04/12/2015 Office visit Adela PITTMANP 03/23/2015 Office visit Chelsea Rodríguez AIR EXPORT COORDINATOR 03/08/2015 Office visit Adela PITTMANP 02/14/2015 Office visit Leonardo Pazran AIR EXPORT COORDINATOR 02/08/2015 Office visit Adela PITTMANP 02/07/2015 Office visit Leonardo Camryn AIR EXPORT COORDINATOR 01/11/2015 Office visit Adela PITTMANP 12/28/2014 Office visit Chelsea Rodríguez AIR EXPORT COORDINATOR 12/14/2014 Nurse visit Adela PITTMANP 11/23/2014 Nurse visit Adela PITTMANP 10/26/2014 Office visit Adela PITTMANP 10/12/2014 Office visit 10/12/2014 Office visit Chelsea Rodríguez AIR EXPORT COORDINATOR 10/05/2014 Nurse visit Adela PITTMANP 09/07/2014 Office visit Adela PITTMANP 08/17/2014 Office visit 08/17/2014 Office visit 08/17/2014 Office visit Chelsea Rodríguez AIR EXPORT COORDINATOR 08/14/2014 Office visit Adela PITTMANP 07/27/2014 Office visit Adela PITTMANP 2014 Office visit Adela PITTMANP 2014 Office visit Mica Lr AIR EXPORT COORDINATOR 06/28/2014 Nurse visit Adela PITTMANP 05/31/2014 Office visit Adela PITTMANP 05/03/2014 Voided Adela PITTMANP 04/26/2014 Office visit Mica Lr AIR EXPORT COORDINATOR 04/05/2014 Office visit Adela PITTMANP 03/10/2014 Office visit Adela PITTMANP 02/28/2014 Office visit Mica Lr AIR EXPORT COORDINATOR 02/24/2014 Office visit Adela Manjit Douglas END POLISHER 02/06/2014 Office visit Adela Manjit Douglas END POLISHER 01/10/2014 Nurse visit Suzan Liang MD 01/06/2014 Office visit Mica Lr AIR EXPORT COORDINATOR 12/15/2013 Office visit Adela Manjit Cole END POLISHER 11/17/2013 Office visit Chelsea Rodríguez AIR EXPORT COORDINATOR 11/17/2013 Office visit Adela MMarcus Cole END POLISHER 10/20/2013 Office visit Adela Cole END POLISHER 09/22/2013 Office visit Adela AlexMarcus Cole END POLISHER 08/30/2013 Office visit Chelsea Rodríguez AIR EXPORT COORDINATOR 08/26/2013 Office visit Beti Reyna AIR EXPORT COORDINATOR 07/29/2013 Office visit Adela Cole END POLISHER 07/06/2013 [facility] Elmira Campbell MD 07/01/2013 Office visit Adela Manjit Douglas END POLISHER 06/06/2013 Office visit Adela Cole END POLISHER 05/31/2013 Office visit Chelsea Rodríguez AIR EXPORT COORDINATOR 05/11/2013 Office visit Adela Cole END POLISHER 03/22/2013 Office visit Adela Cole END POLISHER 03/10/2013 Office visit Adela Cole END POLISHER 03/04/2013 Office visit Adela PITTMANP 03/02/2013 Office visit Odette Elam MD 02/22/2013 Office visit Adela PITTMANP 01/28/2013 Office visit Chelsea Rodríguez AIR EXPORT COORDINATOR 01/25/2013 Office visit Adela PITTMANP 12/27/2012 Office visit Adela Cole END POLISHER 12/07/2012 [facility] Pablo Croft MD 11/24/2012 Office visit Pablo Croft MD 11/02/2012 Office visit Kylah Wright AIR EXPORT COORDINATOR 11/02/2012 Office visit Mica Lr AIR EXPORT COORDINATOR 10/05/2012 [facility] Pablo Croft MD 09/30/2012 Office visit Kylah Wright AIR EXPORT COORDINATOR 09/01/2012 Office visit Kylah Wright AIR EXPORT COORDINATOR 07/21/2012 Office visit Odette Elam MD 06/16/2012 Office visit Pablo Croft MD 05/11/2012 [facility] Pablo Croft MD 04/28/2012 Office visit Pablo Croft MD 04/20/2012 Office visit Odette Elam MD 03/29/2012 Office visit Pablo Croft MD 03/16/2012 [facility] Pablo Croft MD 03/09/2012 [facility] Pablo Croft MD 02/24/2012 [facility] Pablo Croft MD 02/11/2012 Office visit Pablo Croft MD 01/28/2012 Office visit Pablo Croft MD 01/19/2012 Office visit Odette Elam MD 12/03/2011 Office visit Reji Bowens MD 11/12/2011 Office visit Alison Antoine APRN 10/28/2011 Procedures Reji Bowens MD 10/07/2011 Office visit Odette Elam MD 09/04/2011 Surgery Reji Bowens MD 08/15/2011 Surgery Reji Bowens MD 07/22/2011 [facility] Naveen Aguilar MD 07/22/2011 [facility] Reji Bowens MD 07/14/2011 Surgery Reji Bowens MD 06/26/2011 Office visit Odette Elam MD 06/24/2011 Office visit Reji Bowens MD 12/04/2010 [facility] Asha Church MD
--- OUTSIDE RECORDS SUMMARY | 2018-02-14 11:47 | XMS REPORT ---
Author Chelsea Soliz [facility] Address [address] [place], [place] [id number] Care Team Providers Care Software Development Manager Name Role Phone Chelsea Rodríguez PCP [...] then Take 1 tab x 2 days. Dovray 10-325 mg oral tablet 05/03/2015 06/02/2015 take [...] 11/27/2015 12:00 AM Decadron, Per 1 Mg [facility]# [address]-41 Reviewed 11/27/2015 12:00 AM Depo-Medrol 40mg Reviewed [...] Returned 04/24/2016 12:00 AM Toradol 60 Mg [facility]#2282-7443-54 Reviewed 06/11/2016 12:00 AM Consult/Referral Reviewed 06/11/2016 2:41 PM URINALYSIS AUTO W/O SCOPE Reviewed 06/11/2016 12:00 AM URINE CULTURE/COLONY COUNT Returned 06/13/2016 12:00 AM Splint, prefabricated, wrist or ankle Reviewed 10/29/2011 12:00 AM CYSTOMETROGRAM W/RUBBER TESTER&UP Reviewed 10/29/2011 12:00 AM ELECTRO-UROFLOWMETRY FIRST Reviewed 10/29/2011 12:00 AM INTRAABDOMINAL PRESSURE TEST Reviewed 11/12/2011 12:00 AM X-RAY URETHRA/BLADDER Reviewed 11/12/2011 12:00 AM X-RAY EXAM SI JOINTS 3/> VWS Reviewed 01/28/2012 12:00 AM MRI LUMBAR SPINE W/O DYE Reviewed 04/20/2012 12:00 AM THER/PROPH/DIAG INJ SC/IM Reviewed 04/20/2012 12:00 AM Depo-Medrol, Per 120 Mg [facility]#0215-0506-00 Reviewed 07/21/2012 12:00 AM THER/PROPH/DIAG INJ SC/IM Reviewed 07/21/2012 12:00 AM Depo-Medrol, Per 120 Mg [facility]#7066-6618-01 Reviewed 09/01/2012 12:00 AM Drug Screen (Non-Medicare) Reviewed 09/01/2012 12:00 AM DRAIN/INJ JOINT/BURSA W/O US Reviewed 09/01/2012 12:00 AM Kenalog, Per 10 Mg [facility]#7428-7439-32 Reviewed 11/02/2012 12:00 AM Norflex, Up to 60 Mg [facility]#71730-765-32 Reviewed 11/02/2012 12:00 AM INJ TRIGGER POINT 1/2 MUSCL Reviewed 11/02/2012 12:00 AM Bupivicaine, 30 ml [facility]#4390-9622-52 Reviewed 11/02/2012 12:00 AM THER/PROPH/DIAG INJ SC/IM Reviewed 11/02/2012 12:00 AM Norflex, Up to 60 Mg [facility]#14063-492-61 Reviewed 12/27/2012 12:00 AM COMPLETE CBC W/AUTO DIFF WBC Reviewed 12/27/2012 12:00 AM COMPREHEN METABOLIC PANEL Reviewed 12/27/2012 12:00 AM ASSAY THYROID STIM HORMONE Reviewed 12/27/2012 12:00 AM VITAMIN B-12 Reviewed 12/27/2012 12:00 AM ASSAY OF FERRITIN Reviewed 12/27/2012 12:00 AM ANTINUCLEAR ANTIBODIES Reviewed 12/27/2012 12:00 AM DNA ANTIBODY [place] Reviewed 12/27/2012 12:00 AM NUCLEAR ANTIGEN ANTIBODY [...] 05/31/2013 12:00 AM Decadron, Per 1 Mg [facility]# [address]-52 Reviewed 05/31/2013 12:00 AM Depo-Medrol, Per 80 Mg [facility]#7180-6772-73 Reviewed 05/31/2013 12:00 AM THER/PROPH/DIAG INJ SC/IM Reviewed 06/06/2013 12:00 AM MUSCLE TEST 2 LIMBS Reviewed 06/06/2013 12:00 AM Nerve conduction studies with F-wave Reviewed 08/26/2013 12:00 AM MAMMOGRAM SCREENING Reviewed 08/26/2013 12:00 AM MAMMOGRAM SCREENING Reviewed 08/30/2013 12:00 AM THER/PROPH/DIAG INJ SC/IM Reviewed 08/30/2013 12:00 AM Decadron, Per 1 Mg [facility]# [address]-48 Reviewed 08/30/2013 12:00 AM Depo-Medrol, Per 80 Mg [facility]#0935-9364-05 Reviewed 11/17/2013 12:00 AM THER/PROPH/DIAG INJ SC/IM Reviewed 11/17/2013 12:00 AM Decadron, Per 1 Mg [facility]# [address]-32 Reviewed 11/17/2013 12:00 AM Depo-Medrol 40mg Reviewed 01/06/2014 12:00 AM THER/PROPH/DIAG INJ SC/IM Reviewed 01/06/2014 12:00 AM Decadron, Per 1 Mg [facility]# [address]-26 Reviewed 01/06/2014 12:00 AM Rocephin 1 gram [facility]#6781-5284-16 Reviewed 01/10/2014 12:00 AM OFFICE/OUTPATIENT VISIT EST [...] 10/12/2014 12:00 AM Decadron, Per 1 Mg [facility]# [address]-92 Reviewed 10/12/2014 12:00 AM Depo-Medrol 40mg Reviewed [...] Vis Given Vis Pub CVX Influenza 03/02/2013 [facility] PMC Fluzone [id number] Intramuscular Left Deltoid 03/02/2013 12/17/2012 141 X 02/28/2014 [employer]ck [employer] 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 Sep 01 2012 4:05PM Wrist [...] Hip Jun 06 2013 9:51AM Radiculopathy, lumbosacral Fe2013 9:09AM SI joint pain Jul 01 2013 [...] Group Number Start Date [employer] [place] [id number] N/A [employer] [place] [id number] Thursday, 2011 [employer] [place] [id number] N/A [employer] [place] [id number] Thursday, 2013 [facility] UMR [id number] N/A [employer] [id number] N/A [employer] [place] [id number] N/A Res Care ResCare [id number] N/A [employer] [id number] N/A Res Care [employer] [id number] DOI [id number] May [employer] [place] [id number] N/A History of Encounters Visit Date Visit Type Provider 07/31/2016 Office visit Chelsea Rodríguez PERIOPERATIVE TECH 06/11/2016 Office visit Chelsea Rodríguez PERIOPERATIVE TECH 06/05/2016 Office visit Leonardo Cowan PERIOPERATIVE TECH 05/14/2016 Office visit Chelsea Rodríguez PERIOPERATIVE TECH 05/05/2016 Office visit Leonardo Cowan PERIOPERATIVE TECH 04/24/2016 Office visit Chelsea Rodríguez PERIOPERATIVE TECH 04/07/2016 Office visit Chelsea Rodríguez PERIOPERATIVE TECH 03/04/2016 Office visit Chelsea Rodríguez PERIOPERATIVE TECH 01/14/2016 Office visit Chelsea Rodríguez PERIOPERATIVE TECH 01/09/2016 Office visit Lenoardo Cowan PERIOPERATIVE TECH 01/04/2016 Office visit Leonardo Cowan PERIOPERATIVE TECH 11/27/2015 Office visit Chelsea Rodríguez PERIOPERATIVE TECH 08/23/2015 Office visit Chelsea Rodríguez PERIOPERATIVE TECH 07/19/2015 Office visit 07/19/2015 Office visit Chelsea Rodríguez PERIOPERATIVE TECH 06/21/2015 Office visit Chelsea Rodríguez PERIOPERATIVE TECH 05/03/2015 Nurse visit Adela PORTER 04/12/2015 Office visit Adela PORTER 03/23/2015 Office visit Chelsea Rodríguez PERIOPERATIVE TECH 03/08/2015 Office visit Adela PORTER 02/14/2015 Office visit Leonardo Cowan PERIOPERATIVE TECH 02/08/2015 Office visit Adela PORTER 02/07/2015 Office visit Leonardo Cowan PERIOPERATIVE TECH 01/11/2015 Office visit Adela PORTER 12/28/2014 Office visit Chelsea Rodríguez APRN 12/14/2014 Nurse visit Adela PORTER 11/23/2014 Nurse visit Adela PORTER 10/26/2014 Office visit Adela PORTER 10/12/2014 Office visit 10/12/2014 Office visit Chelsea Rodríguez APRN 10/05/2014 Nurse visit Adela PORTER 09/07/2014 Office visit Adela PORTER 08/17/2014 Office visit 08/17/2014 Office visit 08/17/2014 Office visit Chelsea Rodríguez PERIOPERATIVE TECH 08/14/2014 Office visit Adela Cole OPERATING ROOM MANAGER 07/27/2014 Office visit Adela Cole OPERATING ROOM MANAGER 2014 Office visit Adela JohnsonMarcus Douglas OPERATING ROOM MANAGER 2014 Office visit Mica Kareem Lr PERIOPERATIVE TECH 06/28/2014 Nurse visit Adela Cole OPERATING ROOM MANAGER 05/31/2014 Office visit Adela Cole OPERATING ROOM MANAGER 05/03/2014 Voided Adela Cole OPERATING ROOM MANAGER 04/26/2014 Office visit Mica Kareem Lr PERIOPERATIVE TECH 04/05/2014 Office visit Adela Cole OPERATING ROOM MANAGER 03/10/2014 Office visit Adela Cole OPERATING ROOM MANAGER 02/28/2014 Office visit Micawillian Lr PERIOPERATIVE TECH 02/24/2014 Office visit Adela PITTMANP 02/06/2014 Office visit Adela Cole OPERATING ROOM MANAGER 01/10/2014 Nurse visit Suzan Liang MD 01/06/2014 Office visit Mica Lr PERIOPERATIVE TECH 12/15/2013 Office visit Adela Cole OPERATING ROOM MANAGER 11/17/2013 Office visit Chelsea Marcos PERIOPERATIVE TECH 11/17/2013 Office visit Adela Cole OPERATING ROOM MANAGER 10/20/2013 Office visit Adela PITTMANP 09/22/2013 Office visit Adela PITTMANP 08/30/2013 Office visit Chelsea Rodríguez PERIOPERATIVE TECH 08/26/2013 Office visit Beti Reyna PERIOPERATIVE TECH 07/29/2013 Office visit Adela Cole OPERATING ROOM MANAGER 07/06/2013 Procedures Elmira Campbell MD 07/01/2013 Office visit Adela Cole OPERATING ROOM MANAGER 06/06/2013 Office visit Adela Cole OPERATING ROOM MANAGER 05/31/2013 Office visit Chelsea Rodríguez PERIOPERATIVE TECH 05/11/2013 Office visit Adela Cole OPERATING ROOM MANAGER 03/22/2013 Office visit Adela Cole OPERATING ROOM MANAGER 03/10/2013 Office visit Adela PITTMANP 03/04/2013 Office visit Adela PITTMANP 03/02/2013 Office visit Odette Elam MD 02/22/2013 Office visit Adela PITTMANP 01/28/2013 Office visit Chelsea Rodríguez PERIOPERATIVE TECH 01/25/2013 Office visit Adela Cole OPERATING ROOM MANAGER 12/27/2012 Office visit Adela Cole OPERATING ROOM MANAGER 12/07/2012 [facility] Pablo rCoft MD 11/24/2012 Office visit Pablo Croft MD 11/02/2012 Office visit Kylah Wright PERIOPERATIVE TECH 11/02/2012 Office visit Mica NMarcus Lr PERIOPERATIVE TECH 10/05/2012 [facility] Pablo Croft MD 09/30/2012 Office visit Kylah Wright PERIOPERATIVE TECH 09/01/2012 Office visit Kylah Wright PERIOPERATIVE TECH 07/21/2012 Office visit Odette Elam MD 06/16/2012 Office visit Pablo Croft MD 05/11/2012 [facility] Pablo Croft MD 04/28/2012 Office visit Pablo Croft MD 04/20/2012 Office visit Odette Elam MD 03/29/2012 Office visit Pablo Croft MD 03/16/2012 [facility] Pablo Croft MD 03/09/2012 [facility] Pablo Croft MD 02/24/2012 [facility] Pablo Croft MD 02/11/2012 Office visit Pablo Croft MD 01/28/2012 Office visit Pablo Croft MD 01/19/2012 Office visit Odette Elam MD 12/03/2011 Office visit Reji Bowens MD 11/12/2011 Office visit Alison Antoine PERIOPERATIVE TECH 10/28/2011 Procedures Reji Bowens MD 10/07/2011 Office visit Odette Elam MD 09/04/2011 Surgery Reji Bowens MD 08/15/2011 Surgery Reji Bowens MD 07/22/2011 [facility] Naveen Aguilar MD 07/22/2011 [facility] Reji Bowens MD 07/14/2011 Surgery Reji Bowens MD 06/26/2011 Office visit Odette Elam MD 06/24/2011 Office visit Reji Bowens MD 12/04/2010 [facility] Asha Church MD
--- OUTSIDE RECORDS SUMMARY | 2018-02-14 11:49 | XMS REPORT ---
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 [...] Per 1 Mg [facility]# [address]-45 Reviewed 11/27/2015 12:00 AM Depo-Medrol 40mg Reviewed [...] and screen Returned 10/29/2011 12:00 AM CYSTOMETROGRAM W/HORN PLAYER&UP Reviewed 10/29/2011 12:00 AM ELECTRO-UROFLOWMETRY FIRST Reviewed 10/29/2011 12:00 AM INTRAABDOMINAL PRESSURE TEST Reviewed 11/12/2011 12:00 AM X-RAY URETHRA/BLADDER Reviewed 11/12/2011 12:00 AM X-RAY EXAM SI JOINTS 3/> VWS Reviewed 01/28/2012 12:00 AM MRI LUMBAR SPINE W/O DYE Returned 04/20/2012 12:00 AM THER/PROPH/DIAG INJ SC/IM Reviewed 04/20/2012 12:00 AM Depo-Medrol, Per 120 Mg [facility]#2613-0213-45 Reviewed 07/21/2012 12:00 AM THER/PROPH/DIAG INJ SC/IM Reviewed 07/21/2012 12:00 AM Depo-Medrol, Per 120 Mg [facility]#7957-1147-14 Reviewed 09/01/2012 12:00 AM Drug Screen (Non-Medicare) Reviewed 09/01/2012 12:00 AM DRAIN/INJ JOINT/BURSA W/O US Reviewed 09/01/2012 12:00 AM Kenalog, Per 10 Mg [facility]#0369-4378-42 Reviewed 11/02/2012 12:00 AM Norflex, Up to 60 Mg [facility]#19337-127-81 Reviewed 11/02/2012 12:00 AM INJ TRIGGER POINT 1/2 MUSCL Reviewed 11/02/2012 12:00 AM Bupivicaine, 30 ml [facility]#8898-0281-21 Reviewed 11/02/2012 12:00 AM THER/PROPH/DIAG INJ SC/IM Reviewed 11/02/2012 12:00 AM Norflex, Up to 60 Mg [facility]#60637-810-64 Reviewed 12/27/2012 12:00 AM COMPLETE CBC W/AUTO DIFF WBC Returned 12/27/2012 12:00 AM COMPREHEN METABOLIC PANEL Returned 12/27/2012 12:00 AM ASSAY THYROID STIM HORMONE Returned 12/27/2012 12:00 AM VITAMIN B-12 Returned 12/27/2012 12:00 AM ASSAY OF FERRITIN Returned 12/27/2012 12:00 AM ANTINUCLEAR ANTIBODIES Reviewed 12/27/2012 12:00 AM DNA ANTIBODY HOONAH Reviewed 12/27/2012 12:00 AM NUCLEAR ANTIGEN ANTIBODY [...] Per 1 Mg [facility]# [address]-95 Reviewed 05/31/2013 12:00 AM Depo-Medrol, Per 80 Mg [place]#2466-8420-10 Reviewed 05/31/2013 12:00 AM THER/PROPH/DIAG INJ SC/IM Reviewed 06/06/2013 12:00 AM MUSCLE TEST 2 LIMBS Reviewed 06/06/2013 12:00 AM Nerve conduction studies with F-wave Reviewed 08/26/2013 12:00 AM MAMMOGRAM SCREENING Returned 08/26/2013 12:00 AM MAMMOGRAM SCREENING Reviewed 08/30/2013 12:00 AM THER/PROPH/DIAG INJ SC/IM Reviewed 08/30/2013 12:00 AM Decadron, Per 1 Mg ND# [address]-61 Reviewed 08/30/2013 12:00 AM Depo-Medrol, Per 80 Mg ND#1248-2211-98 Reviewed 11/17/2013 12:00 AM THER/PROPH/DIAG INJ SC/IM Reviewed 11/17/2013 12:00 AM Decadron, Per 1 Mg ND# [address]-51 Reviewed 11/17/2013 12:00 AM Depo-Medrol 40mg Reviewed 01/06/2014 12:00 AM THER/PROPH/DIAG INJ SC/IM Reviewed 01/06/2014 12:00 AM Decadron, Per 1 Mg [facility]# [address]-51 Reviewed 01/06/2014 12:00 AM Rocephin 1 gram [place]#1928-0565-45 Reviewed 01/10/2014 12:00 AM OFFICE/OUTPATIENT VISIT EST [...] Per 1 Mg [facility]# [address]-86 Reviewed 10/12/2014 12:00 AM Depo-Medrol 40mg Reviewed [...] CVX Influenza 03/02/2013 sanofi pasteur PMC Fluzone [id number] Intramuscular Left Deltoid 03/02/2013 12/17/2012 141 X 02/28/2014 Merck & Co., Inc. MSD Pneumovax 23 [id number] Intramuscular Left Deltoid 02/28/2014 02/27/2009 33 Influenza 03/23/2015 sanofi pasteur PMC Fluzone Quadrivalent [id number] Intramuscular Right Deltoid 03/23/2015 12/29/2014 140 History [...] 2012 3:35PM SI joint pain Sep 3 2013 3:35PM Neuralgia Sep 3 2013 3:35PM Anxiety [...] Hip b 7 2013 9:09AM Lumbosacral Radiculopathy Jun 12 2013 8:30AM Radiculopathy, lumbosacral Jul 29 [...] Number Start Date [employer] [facility] [place] [id number] N/A Res Care ResCare [id number] N/A [employer] [facility] [facility] [place] [id number] Saturday, 2011 [employer] [place] [id number] N/A [facility] [id number] Thursday, 2013 [facility] [id number] N/A [facility] [employer] [facility] [id number] N/A History of Encounters Visit Date Visit Type Provider 01/14/2016 Office visit Chelsea Rodríguez BUNG SEWER 01/09/2016 Office visit Leonardo Cowan BUNG SEWER 01/04/2016 Office visit Leonardo Cowan BUNG SEWER 11/27/2015 Office visit Chelsea Rodríguez BUNG SEWER 08/23/2015 Office visit Chelsea Rodríguez BUNG SEWER 07/19/2015 Office visit 07/19/2015 Office visit Chelsea Rodríguez BUNG SEWER 06/21/2015 Office visit Chelsea Rodríguez BUNG SEWER 05/03/2015 Nurse visit Adela PITTMANP 04/12/2015 Office visit Adela PITTMANP 03/23/2015 Office visit Chelsea Rodríguez BUNG SEWER 03/08/2015 Office visit Adela PITTMANP 02/14/2015 Office visit Leonardo Pazran BUNG SEWER 02/08/2015 Office visit Adela PORTER 02/07/2015 Office visit Leonardo Camryn BUNG SEWER 01/11/2015 Office visit Adela PITTMANP 12/28/2014 Office visit Chelsea Rodríguez BUNG SEWER 12/14/2014 Nurse visit Adela PITTMANP 11/23/2014 Nurse visit Adela PITTMANP 10/26/2014 Office visit Adela PITTMANP 10/12/2014 Office visit 10/12/2014 Office visit Chelsea Rodríguez BUNG SEWER 10/05/2014 Nurse visit Adela PITTMANP 09/07/2014 Office visit Adela PITTMANP 08/17/2014 Office visit 08/17/2014 Office visit 08/17/2014 Office visit Chelsea Rodríguez BUNG SEWER 08/14/2014 Office visit Adela PITTMANP 07/27/2014 Office visit Adela PITTMANP 2014 Office visit Adela PITTMANP 2014 Office visit Mica Lr BUNG SEWER 06/28/2014 Nurse visit Adela PITTMANP 05/31/2014 Office visit Adela PITTMANP 05/03/2014 Voided Adela PITTMANP 04/26/2014 Office visit Mica Lr BUNG SEWER 04/05/2014 Office visit Adela PITTMANP 03/10/2014 Office visit Adela Cole SECURITY COMPLIANCE ENGINEER 02/28/2014 Office visit Mica Lr BUNG SEWER 02/24/2014 Office visit Adela Manjit Douglas SECURITY COMPLIANCE ENGINEER 02/06/2014 Office visit Adela JohnsonMarcus Douglas SECURITY COMPLIANCE ENGINEER 01/10/2014 Nurse visit Suzan Liang MD 01/06/2014 Office visit Mica Lr BUNG SEWER 12/15/2013 Office visit Adela Cole SECURITY COMPLIANCE ENGINEER 11/17/2013 Office visit Chelsea Marcos BUNG SEWER 11/17/2013 Office visit Adela MMarcus Cole SECURITY COMPLIANCE ENGINEER 10/20/2013 Office visit Adela AlexMarcus Cole SECURITY COMPLIANCE ENGINEER 09/22/2013 Office visit Adela Manjit Douglas SECURITY COMPLIANCE ENGINEER 08/30/2013 Office visit Chelsea Marcos BUNG SEWER 08/26/2013 Office visit Beti Reyna BUNG SEWER 07/29/2013 Office visit Adela Cole SECURITY COMPLIANCE ENGINEER 07/06/2013 [facility] Elmira Campbell MD 07/01/2013 Office visit Adela Cole SECURITY COMPLIANCE ENGINEER 06/06/2013 Office visit Adela AlexMarcus Cole SECURITY COMPLIANCE ENGINEER 05/31/2013 Office visit Chelsea Rodríguez BUNG SEWER 05/11/2013 Office visit Adela Cole SECURITY COMPLIANCE ENGINEER 03/22/2013 Office visit Adela Cole SECURITY COMPLIANCE ENGINEER 03/10/2013 Office visit Adela Cole SECURITY COMPLIANCE ENGINEER 03/04/2013 Office visit Adela PITTMANP 03/02/2013 Office visit Odette Elam MD 02/22/2013 Office visit Adela PITTMANP 01/28/2013 Office visit Chelsea Rodríguez BUNG SEWER 01/25/2013 Office visit Adela PITTMANP 12/27/2012 Office visit Adela PITTMANP 12/07/2012 [facility] Pablo Croft MD 11/24/2012 Office visit Pablo Croft MD 11/02/2012 Office visit Kylah Wright BUNG SEWER 11/02/2012 Office visit Mica Lr BUNG SEWER 10/05/2012 [facility] Pablo Croft MD 09/30/2012 Office visit Kylah Wright BUNG SEWER 09/01/2012 Office visit Kylah Wright BUNG SEWER 07/21/2012 Office visit Odette Elam MD 06/16/2012 [...] 06/24/2011 Office visit Reji Bowens MD 12/04/2010 [facility] Asha Church MD
--- OUTSIDE RECORDS SUMMARY | 2018-02-14 11:52 | XMS REPORT ---
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 [...] AM Decadron, Per 1 Mg [facility]# [address]-83 Reviewed 11/27/2015 12:00 AM Depo-Medrol 40mg Reviewed [...] 04/24/2016 12:00 AM Toradol 60 Mg [facility]#8518-4471-00 Reviewed 06/11/2016 12:00 AM Consult/Referral Reviewed 06/11/2016 2:41 PM URINALYSIS AUTO W/O SCOPE Reviewed 06/11/2016 12:00 AM URINE CULTURE/COLONY COUNT Reviewed 06/13/2016 12:00 AM Splint, prefabricated, wrist or ankle Reviewed 07/31/2016 12:00 AM LIPID PANEL Reviewed 07/31/2016 12:00 AM MAMMOGRAPHY SCREENING, DIGITAL Reviewed 10/29/2011 12:00 AM CYSTOMETROGRAM W/TOOLMAN&UP Reviewed 10/29/2011 12:00 AM ELECTRO-UROFLOWMETRY FIRST Reviewed [...] AM Depo-Medrol, Per 120 Mg [facility]#7043-2867-82 Reviewed 07/20/2017 12:00 AM INJECT SPINE LUMBAR/SACRAL Returned 2017 12:00 AM COMPLETE CBC W/AUTO DIFF WBC Returned 2017 12:00 AM COMPREHEN METABOLIC PANEL Returned 2017 12:00 AM LIPID PANEL Returned 2017 12:00 AM ASSAY THYROID STIM HORMONE Returned 2017 12:00 AM MAMMOGRAPHY SCREENING, DIGITAL Returned 07/21/2012 12:00 AM THER/PROPH/DIAG INJ SC/IM Reviewed 07/21/2012 12:00 AM Depo-Medrol, Per 120 Mg [facility]#7012-3830-31 Reviewed 10/14/2017 12:38 PM ASSAY GLUCOSE BLOOD QUANT Reviewed 10/14/2017 12:38 PM GLUCOSE BLOOD TEST Reviewed 09/01/2012 12:00 AM Drug Screen (Non-Medicare) Reviewed 09/01/2012 12:00 AM DRAIN/INJ JOINT/BURSA W/O US Reviewed 09/01/2012 12:00 AM Kenalog, Per 10 Mg [facility]#6666-6405-25 Reviewed 11/02/2012 12:00 AM Norflex, Up to 60 Mg [facility]#28775-089-84 Reviewed 11/02/2012 12:00 AM INJ TRIGGER POINT 1/2 MUSCL Reviewed 11/02/2012 12:00 AM Bupivicaine, 30 ml [facility]#5523-0037-15 Reviewed 11/02/2012 12:00 AM THER/PROPH/DIAG INJ SC/IM Reviewed 11/02/2012 12:00 AM Norflex, Up to 60 Mg [facility]#53773-289-38 Reviewed 12/27/2012 12:00 AM COMPLETE CBC W/AUTO DIFF WBC Reviewed 12/27/2012 12:00 AM COMPREHEN METABOLIC PANEL Reviewed 12/27/2012 12:00 AM ASSAY THYROID STIM HORMONE Reviewed 12/27/2012 12:00 AM VITAMIN B-12 Reviewed 12/27/2012 12:00 AM ASSAY OF FERRITIN Reviewed 12/27/2012 12:00 AM ANTINUCLEAR ANTIBODIES Reviewed 12/27/2012 12:00 AM DNA ANTIBODY NIKOLAI Reviewed 12/27/2012 12:00 AM NUCLEAR ANTIGEN ANTIBODY [...] 12:00 AM Decadron, Per 1 Mg [place]# [address]-67 Reviewed 05/31/2013 12:00 AM Depo-Medrol, Per 80 Mg ND#9720-6226-52 Reviewed 05/31/2013 12:00 AM THER/PROPH/DIAG INJ SC/IM Reviewed 06/06/2013 12:00 AM MUSCLE TEST 2 LIMBS Reviewed 06/06/2013 12:00 AM Nerve conduction studies with F-wave Reviewed 08/26/2013 12:00 AM MAMMOGRAM SCREENING Reviewed 08/26/2013 12:00 AM MAMMOGRAM SCREENING Reviewed 08/30/2013 12:00 AM THER/PROPH/DIAG INJ SC/IM Reviewed 08/30/2013 12:00 AM Decadron, Per 1 Mg [facility]# [address]-07 Reviewed 08/30/2013 12:00 AM Depo-Medrol, Per 80 Mg ND#3061-9136-33 Reviewed 11/17/2013 12:00 AM THER/PROPH/DIAG INJ SC/IM Reviewed 11/17/2013 12:00 AM Decadron, Per 1 Mg [facility]# [address]-91 Reviewed 11/17/2013 12:00 AM Depo-Medrol 40mg Reviewed 01/06/2014 12:00 AM THER/PROPH/DIAG INJ SC/IM Reviewed 01/06/2014 12:00 AM Decadron, Per 1 Mg [facility]# [address]-84 Reviewed 01/06/2014 12:00 AM Rocephin 1 gram [facility]#8830-4134-85 Reviewed 01/10/2014 12:00 AM OFFICE/OUTPATIENT VISIT EST [...] AM Decadron, Per 1 Mg [facility]# [address]-24 Reviewed 10/12/2014 12:00 AM Depo-Medrol 40mg Reviewed [...] CVX Influenza 03/02/2013 sanofi pasteur PMC FLUZONE [id number] Intramuscular Left Deltoid 03/02/2013 12/17/2012 141 X 02/28/2014 Merck & Co., Inc. MSD PNEUMOVAX 23 [id number] Intramuscular Left Deltoid 02/28/2014 02/27/2009 33 Influenza 03/23/2015 sanofi pasteur PMC Fluzone Quadrivalent [id number] Intramuscular Right Deltoid 03/23/2015 12/29/2014 140 Influenza 03/04/2016 RoomRevealofi pasteur PMC Fluzone Quadrivalent UI [id number] [id number] Intramuscular Left Deltoid 03/04/2016 12/29/2014 141 Tdap 02/20/2017 GlaxoSmithKline SKB BOOSTRIX [id number] Intramuscular Right Arm 02/20/2017 07/18/2014 115 Influenza 02/20/2017 sanofi Modiv Media PMC Fluzone Quadrivalent [id number] Intramuscular Left Arm 02/20/2017 12/29/2014 150 History [...] SI joint pain Sep 01 2012 3:06PM correction medication use Sep 01 2012 4:05PM Wrist [...] Number Start Date [employer] [place] [id number] N/A [employer] [place] [id number] Saturday, 2011 [employer] [place] [id number] N/A [employer] [place] [id number] Thursday, 2013 [facility] [id number] N/A [employer] [id number] N/A [employer] [place] [id number] N/A Res Care ResCare [id number] N/A [facility] [employer] [facility] [employer] [id number] N/A Res Care ResCare [id number] DOI [id number] May [employer] [place] [id number] N/A History of Encounters Visit Date Visit Type Provider 10/13/2017 Office visit Chelsea Rodríguez HEALTHCARE INSURANCE SALES AGENT 2017 Office visit Chelsea Rodríguez HEALTHCARE INSURANCE SALES AGENT 05/22/2017 Office visit Chelsea Rodríguez HEALTHCARE INSURANCE SALES AGENT 02/20/2017 Office visit Chelsea Rodríguez HEALTHCARE INSURANCE SALES AGENT 02/10/2017 Office visit Jeremy West DO 01/31/2017 Office visit Dimitri Beebe NP 11/20/2016 Office visit Chelsea Rodríguez HEALTHCARE INSURANCE SALES AGENT 08/29/2016 Office visit Chelsea Rodríguez HEALTHCARE INSURANCE SALES AGENT 07/31/2016 Office visit Chelsea Rodríguez HEALTHCARE INSURANCE SALES AGENT 06/11/2016 Office visit Chelsea Rodríguez HEALTHCARE INSURANCE SALES AGENT 06/05/2016 Office visit Leonardo oCwan HEALTHCARE INSURANCE SALES AGENT 05/14/2016 Office visit Chelsea Rodríguez HEALTHCARE INSURANCE SALES AGENT 05/05/2016 Office visit Leonardo Cowan HEALTHCARE INSURANCE SALES AGENT 04/24/2016 Office visit Chelsea Rodríguez HEALTHCARE INSURANCE SALES AGENT 04/07/2016 Office visit Chelsea Rodríguez HEALTHCARE INSURANCE SALES AGENT 03/04/2016 Office visit Chelsea Rodríguez HEALTHCARE INSURANCE SALES AGENT 01/14/2016 Office visit Chelsea Rodríguez HEALTHCARE INSURANCE SALES AGENT 01/09/2016 Office visit Leonardo Cowan HEALTHCARE INSURANCE SALES AGENT 01/04/2016 Office visit Leonardo Cowan HEALTHCARE INSURANCE SALES AGENT 11/27/2015 Office visit Chelsea Rodríguez HEALTHCARE INSURANCE SALES AGENT 08/23/2015 Office visit Chelsea Rodríguez HEALTHCARE INSURANCE SALES AGENT 07/19/2015 Office visit 07/19/2015 Office visit Chelsea Rodríguez HEALTHCARE INSURANCE SALES AGENT 06/21/2015 Office visit Chelsea Rodríguez HEALTHCARE INSURANCE SALES AGENT 05/03/2015 Nurse visit Adela Cole DIRECTOR UNDERWRITER SALES 04/12/2015 Office visit Adela Cole DIRECTOR UNDERWRITER SALES 03/23/2015 Office visit Chelsea Rodríguez HEALTHCARE INSURANCE SALES AGENT 03/08/2015 Office visit Adela JohnsonMarcus Douglas DIRECTOR UNDERWRITER SALES 02/14/2015 Office visit Leonardo Cowan HEALTHCARE INSURANCE SALES AGENT 02/08/2015 Office visit Adela Cole DIRECTOR UNDERWRITER SALES 02/07/2015 Office visit Leonardo Cowan HEALTHCARE INSURANCE SALES AGENT 01/11/2015 Office visit Adela Cole DIRECTOR UNDERWRITER SALES 12/28/2014 Office visit Chelsea Rodríguez HEALTHCARE INSURANCE SALES AGENT 12/14/2014 Nurse visit Adela Cole DIRECTOR UNDERWRITER SALES 11/23/2014 Nurse visit Adela Cole DIRECTOR UNDERWRITER SALES 10/26/2014 Office visit Adela PITTMANP 10/12/2014 Office visit 10/12/2014 Office visit Chelsea Rodríguez HEALTHCARE INSURANCE SALES AGENT 10/05/2014 Nurse visit Adela PITTMANP 09/07/2014 Office visit Adela PITTMANP 08/17/2014 Office visit 08/17/2014 Office visit 08/17/2014 Office visit Chelsea Rodríguez HEALTHCARE INSURANCE SALES AGENT 08/14/2014 Office visit Adela PITTMANP 07/27/2014 Office visit Adela PITTMANP 2014 Office visit Adela PITTMANP 2014 Office visit Mica Lr HEALTHCARE INSURANCE SALES AGENT 06/28/2014 Nurse visit Adela PITTMANP 05/31/2014 Office visit Adela PITTMANP 05/03/2014 Voided Adela PITTMANP 04/26/2014 Office visit Mica Lr HEALTHCARE INSURANCE SALES AGENT 04/05/2014 Office visit Adela PITTMANP 03/10/2014 Office visit Adela PITTMANP 02/28/2014 Office visit Mica Lr HEALTHCARE INSURANCE SALES AGENT 02/24/2014 Office visit Adela PITTMANP 02/06/2014 Office visit Adela PITTMANP 01/10/2014 Nurse visit Suzan Liang MD 01/06/2014 Office visit Mica Lr HEALTHCARE INSURANCE SALES AGENT 12/15/2013 Office visit Adela PITTMANP 11/17/2013 Office visit Chelsea Rodríguez HEALTHCARE INSURANCE SALES AGENT 11/17/2013 Office visit Adela PITTMANP 10/20/2013 Office visit Adela JohnsonMarcus Cole DIRECTOR UNDERWRITER SALES 09/22/2013 Office visit Adela AlexMarcus Cole DIRECTOR UNDERWRITER SALES 08/30/2013 Office visit Chelsea Rodríguez HEALTHCARE INSURANCE SALES AGENT 08/26/2013 Office visit Beti Reyna HEALTHCARE INSURANCE SALES AGENT 07/29/2013 Office visit Adela AlexMarcus Cole DIRECTOR UNDERWRITER SALES 07/06/2013 [facility] Elmira Campbell MD 07/01/2013 Office visit Adela M. Douglas DIRECTOR UNDERWRITER SALES 06/06/2013 Office visit Adela M. Douglas DIRECTOR UNDERWRITER SALES 05/31/2013 Office visit Chelsea Rodríguez HEALTHCARE INSURANCE SALES AGENT 05/11/2013 Office visit Adela M. Douglas DIRECTOR UNDERWRITER SALES 03/22/2013 Office visit Adela M. Douglas DIRECTOR UNDERWRITER SALES 03/10/2013 Office visit Adela M. Douglas DIRECTOR UNDERWRITER SALES 03/04/2013 Office visit Adela Manjit Douglas DIRECTOR UNDERWRITER SALES 03/02/2013 Office visit Odette Elam MD 02/22/2013 Office visit Adela Cole DIRECTOR UNDERWRITER SALES 01/28/2013 Office visit Chelsea Rodríguez HEALTHCARE INSURANCE SALES AGENT 01/25/2013 Office visit Adela Cole DIRECTOR UNDERWRITER SALES 12/27/2012 Office visit Adela Cole DIRECTOR UNDERWRITER SALES 12/07/2012 [facility] Pablo Croft MD 11/24/2012 Office visit Pablo Croft MD 11/02/2012 Office visit Kylah Wright HEALTHCARE INSURANCE SALES AGENT 11/02/2012 Office visit Mica Lr HEALTHCARE INSURANCE SALES AGENT 10/05/2012 [facility] Pablo Croft MD 09/30/2012 Office visit Kylah Wright HEALTHCARE INSURANCE SALES AGENT 09/01/2012 Office visit Kylah Wright HEALTHCARE INSURANCE SALES AGENT 07/21/2012 Office visit Odette Elam MD 06/16/2012 Office visit Pablo Croft MD 05/11/2012 [facility] Pablo Croft MD 04/28/2012 Office visit Pablo Croft MD 04/20/2012 Office visit Odette Elam MD 03/29/2012 Office visit Pablo Croft MD 03/16/2012 [facility] Pablo Croft MD 03/09/2012 [facility] Pablo Croft MD 02/24/2012 [facility] Pablo Croft MD 02/11/2012 Office visit Pablo Croft MD 01/28/2012 Office visit Pablo Croft MD 01/19/2012 Office visit Odette Elam MD 12/03/2011 Office visit Reji Bowens MD 11/12/2011 Office visit Alison Antoine APRN 10/28/2011 Procedures Reji Bowens MD 10/07/2011 Office visit Odette Elam MD 09/04/2011 Surgery Reji Bowens MD 08/15/2011 Surgery Reji Bowens MD 07/22/2011 [facility] Naveen Aguilar MD 07/22/2011 [facility] Reji Bowens MD 07/14/2011 Surgery Reji Bowens MD 06/26/2011 Office visit Odette Elam MD 06/24/2011 Office visit Reji Bowens MD 12/04/2010 [facility] Asha Church MD
--- OUTSIDE RECORDS SUMMARY | 2018-02-14 11:54 | XMS REPORT ---
Author Author Adela Cole [facility] Address [address] [place], [place] [id number] Care Team Providers Care [employer] Guidance Counselor Name Role Phone Adela Cole PCP Allergies and Adverse Reactions Name Reaction Notes Keflex yeast infection does not want to take due to causes yeast infection Plan of Treatment Planned Activity Comments Planned Date Planned Time Plan/Goal METABOLIC PANEL TOTAL CA 10/12/2014 12:00 AM Nerve conduction study 01/11/2015 12:00 AM NRV CNDJ TEST 9-10 STUDIES 01/11/2015 12:00 AM NRV CNDJ TEST 11-12 STUDIES 01/11/2015 12:00 AM NRV CNDJ TEST 13/> STUDIES 01/11/2015 12:00 AM Medications Active Name Start Date [...] once daily at bedtime for 30 days [place] 10-325 mg oral tablet 04/12/2015 05/12/2015 take 1 tablet by oral route every [...] 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 Procedures Date Ordered Description Order Status 03/23/2015 12:00 AM FLU VACC 4 ROB 3 YRS PLUS IM Reviewed 03/23/2015 12:00 AM THER/PROPH/DIAG INJ SC/IM Reviewed 06/24/2011 12:00 AM ASSAY THYROID STIM [...] and screen Returned 10/29/2011 12:00 AM CYSTOMETROGRAM W/MAINTENANCE PLANNER&UP Reviewed 10/29/2011 12:00 AM ELECTRO-UROFLOWMETRY FIRST Reviewed 10/29/2011 12:00 AM INTRAABDOMINAL PRESSURE TEST Reviewed 11/12/2011 12:00 AM X-RAY URETHRA/BLADDER Reviewed 11/12/2011 12:00 AM X-RAY EXAM SI JOINTS 3/> VWS Reviewed 01/28/2012 12:00 AM MRI LUMBAR SPINE W/O DYE Returned 04/20/2012 12:00 AM THER/PROPH/DIAG INJ SC/IM Reviewed 04/20/2012 12:00 AM Depo-Medrol, Per 120 Mg [facility]#0964-1804-57 Reviewed 07/21/2012 12:00 AM THER/PROPH/DIAG INJ SC/IM Reviewed 07/21/2012 12:00 AM Depo-Medrol, Per 120 Mg [facility]#5684-1685-97 Reviewed 09/01/2012 12:00 AM Drug Screen (Non-Medicare) Reviewed 09/01/2012 12:00 AM Kenalog, Per 10 Mg [facility]#7812-8761-89 Reviewed 11/02/2012 12:00 AM Norflex, Up to 60 Mg [facility]#05432-264-12 Reviewed 11/02/2012 12:00 AM INJ TRIGGER POINT 1/2 MUSCL Reviewed 11/02/2012 12:00 AM Bupivicaine, 30 ml [facility]#9640-7807-26 Reviewed 11/02/2012 12:00 AM THER/PROPH/DIAG INJ SC/IM Reviewed 11/02/2012 12:00 AM Norflex, Up to 60 Mg [facility]#17880-654-65 Reviewed 12/27/2012 12:00 AM COMPLETE CBC W/AUTO DIFF WBC Returned 12/27/2012 12:00 AM COMPREHEN METABOLIC PANEL Returned 12/27/2012 12:00 AM ASSAY THYROID STIM HORMONE Returned 12/27/2012 12:00 AM VITAMIN B-12 Returned 12/27/2012 12:00 AM ASSAY OF FERRITIN Returned 12/27/2012 12:00 AM ANTINUCLEAR ANTIBODIES Reviewed 12/27/2012 12:00 AM DNA ANTIBODY [place] Reviewed 12/27/2012 12:00 AM NUCLEAR ANTIGEN ANTIBODY [...] 05/31/2013 12:00 AM Decadron, Per 1 Mg [facility]# [address]-19 Reviewed 05/31/2013 12:00 AM Depo-Medrol, Per 80 Mg [facility]#2452-1611-09 Reviewed 05/31/2013 12:00 AM THER/PROPH/DIAG INJ SC/IM Reviewed 06/06/2013 12:00 AM MUSCLE TEST 2 LIMBS Reviewed 06/06/2013 12:00 AM Nerve conduction studies with F-wave Reviewed 08/26/2013 12:00 AM MAMMOGRAM SCREENING Returned 08/26/2013 12:00 AM MAMMOGRAM SCREENING Reviewed 08/30/2013 12:00 AM THER/PROPH/DIAG INJ SC/IM Reviewed 08/30/2013 12:00 AM Decadron, Per 1 Mg [facility]# [address]-67 Reviewed 08/30/2013 12:00 AM Depo-Medrol, Per 80 Mg [facility]#2363-8845-83 Reviewed 11/17/2013 12:00 AM THER/PROPH/DIAG INJ SC/IM Reviewed 11/17/2013 12:00 AM Decadron, Per 1 Mg [facility]# [address]-90 Reviewed 11/17/2013 12:00 AM Depo-Medrol 40mg Reviewed 01/06/2014 12:00 AM THER/PROPH/DIAG INJ SC/IM Reviewed 01/06/2014 12:00 AM Decadron, Per 1 Mg [facility]# [address]-53 Reviewed 01/06/2014 12:00 AM Rocephin 1 gram [facility]#3253-0311-13 Reviewed 01/10/2014 12:00 AM OFFICE/OUTPATIENT VISIT EST [...] 10/12/2014 12:00 AM Decadron, Per 1 Mg [facility]# [address]-41 Reviewed 10/12/2014 12:00 AM Depo-Medrol 40mg Reviewed [...] CVX Influenza 03/02/2013 sanofi pasteur PMC Fluzone [id number] Intramuscular Left Deltoid 03/02/2013 12/17/2012 141 Pneumococcal 02/28/2014 [employer] 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 4:05PM Wrist [...] lumbosacral Feb 2013 9:09AM SI joint pain b 2013 9:09AM Neuralgia b 7 2013 9:09AM Pain in joint; Right Hip b 2013 9:09AM Lumbosacral Radiculopathy b 12 2013 [...] Policy Number Policy Group Number Start Date UMR UMR [id number] N/A [employer] [facility] [id number] N/A [employer] [facility] [id number] Saturday, 2011 [facility] [employer] [id number] N/A [facility] [id number] Thursday, 2013 History of Encounters Visit Date Visit Type Provider 04/12/2015 Office visit Adela PITTMANP 03/23/2015 Office visit Chelsea Marcos INSOLE PRESSER 03/08/2015 Office visit Adela PITTMANP 02/14/2015 Office visit Leonardo Cowan INSOLE PRESSER 02/08/2015 Office visit Adela PITTMANP 02/07/2015 Office visit Leonardo Cowan INSOLE PRESSER 01/11/2015 Office visit Adela PITTMANP 12/28/2014 Office visit Chelsea Marcos INSOLE PRESSER 12/14/2014 Nurse visit Adela PITTMANP 11/23/2014 Nurse visit Adela PITTMANP 10/26/2014 Office visit Adela PITTMANP 10/12/2014 Office visit Chelsea Marcos INSOLE PRESSER 10/05/2014 Nurse visit Adela PITTMANP 09/07/2014 Office visit Adela PITTMANP 08/17/2014 Office visit Chelsea Rodríguez INSOLE PRESSER 08/14/2014 Office visit Adela PITTMANP 07/27/2014 Office visit Adela PITTMANP 2014 Office visit Adela PITTMANP 2014 Office visit Mica Lr INSOLE PRESSER 06/28/2014 Nurse visit Adela PITTMANP 05/31/2014 Office visit Adela PITTMANP 05/03/2014 Voided Adela PITTMANP 04/26/2014 Office visit Mica Lr APRN 04/05/2014 Office visit Adela PITTMANP 03/10/2014 Office visit Adela PITTMANP 02/28/2014 Office visit Mica Lr INSOLE PRESSER 02/24/2014 Office visit Adela PORTER 02/06/2014 Office visit Adela PITTMANP 01/10/2014 Nurse visit Suzan Liang MD 01/06/2014 Office visit Mica Lr INSOLE PRESSER 12/15/2013 Office visit Adela PITTMANP 11/17/2013 Office visit Chelsea Rodríguez INSOLE PRESSER 11/17/2013 Office visit Adela PITTMANP 10/20/2013 Office visit Adela M. Douglas SALES REPRESENTATIVE [employer] 09/22/2013 Office visit Adela M. Douglas SALES REPRESENTATIVE [employer] 08/30/2013 Office visit Chelsea Rodríguez INSOLE PRESSER 08/26/2013 Office visit Beti Reyna INSOLE PRESSER 07/29/2013 Office visit Adela Manjit Douglas SALES REPRESENTATIVE [employer] 07/06/2013 [facility] Elmira Campbell MD 07/01/2013 Office visit Adela Cole SALES REPRESENTATIVE [employer] 06/06/2013 Office visit Adela Cole SALES REPRESENTATIVE [employer] 05/31/2013 Office visit Chelsea Rodríguez INSOLE PRESSER 05/11/2013 Office visit Adela M. Douglas SALES REPRESENTATIVE [employer] 03/22/2013 Office visit Adela M. Douglas SALES REPRESENTATIVE [employer] 03/10/2013 Office visit Adelacatherine Cole SALES REPRESENTATIVE [employer] 03/04/2013 Office visit Adela M. Douglas SALES REPRESENTATIVE [employer] 03/02/2013 Office visit Odette Elam MD 02/22/2013 Office visit Adela AlexMarcus Cole SALES REPRESENTATIVE [employer] 01/28/2013 Office visit Chelsea Rodríguez INSOLE PRESSER 01/25/2013 Office visit Adela AlexMarcus Cole SALES REPRESENTATIVE [employer] 12/27/2012 Office visit Adela Cole SALES REPRESENTATIVE [employer]URE 12/07/2012 [facility] Pablo Croft MD 11/24/2012 Office visit Pablo Croft MD 11/02/2012 Office visit Kylah Wright INSOLE PRESSER 11/02/2012 Office visit Mica Lr INSOLE PRESSER 10/05/2012 [facility] Pablo Croft MD 09/30/2012 Office visit Kylah Wright INSOLE PRESSER 09/01/2012 Office visit Kylah Wright INSOLE PRESSER 07/21/2012 Office visit Odette Elam MD 06/16/2012 Office visit Pablo Croft MD 05/11/2012 [facility] Pablo Croft MD 04/28/2012 Office visit Pablo Croft MD 04/20/2012 Office visit Odette Elam MD 03/29/2012 Office visit Pablo Croft MD 03/16/2012 Hospital Pablo Croft MD 03/09/2012 [facility] Pablo Croft MD 02/24/2012 [facility] Pablo [...]
--- OUTSIDE RECORDS SUMMARY | 2018-02-14 11:55 | XMS REPORT ---
Author Author Adela Cole [facility] Address [address] [place], [place] [id number] Care Team Providers Care Blacksmith Apprentice Name Role Phone Adela Cole PCP Allergies [...] once daily at bedtime for 30 days [place] 10-325 mg oral tablet 05/03/2015 06/02/2015 take [...] and screen Returned 10/29/2011 12:00 AM CYSTOMETROGRAM W/GEOPHYSICAL DATA TECHNICIAN&UP Reviewed 10/29/2011 12:00 AM ELECTRO-UROFLOWMETRY FIRST Reviewed 10/29/2011 12:00 AM INTRAABDOMINAL PRESSURE TEST Reviewed 11/12/2011 12:00 AM X-RAY URETHRA/BLADDER Reviewed 11/12/2011 12:00 AM X-RAY EXAM SI JOINTS 3/> VWS Reviewed 01/28/2012 12:00 AM MRI LUMBAR SPINE W/O DYE Returned 04/20/2012 12:00 AM THER/PROPH/DIAG INJ SC/IM Reviewed 04/20/2012 12:00 AM Depo-Medrol, Per 120 Mg [facility]#8393-2507-00 Reviewed 07/21/2012 12:00 AM THER/PROPH/DIAG INJ SC/IM Reviewed 07/21/2012 12:00 AM Depo-Medrol, Per 120 Mg [facility]#8238-5010-89 Reviewed 09/01/2012 12:00 AM Drug Screen (Non-Medicare) Reviewed 09/01/2012 12:00 AM Kenalog, Per 10 Mg [facility]#6952-2614-18 Reviewed 11/02/2012 12:00 AM Norflex, Up to 60 Mg [facility]#20199-700-18 Reviewed 11/02/2012 12:00 AM INJ TRIGGER POINT 1/2 MUSCL Reviewed 11/02/2012 12:00 AM Bupivicaine, 30 ml [facility]#1157-4076-45 Reviewed 11/02/2012 12:00 AM THER/PROPH/DIAG INJ SC/IM Reviewed 11/02/2012 12:00 AM Norflex, Up to 60 Mg [facility]#84356-148-94 Reviewed 12/27/2012 12:00 AM COMPLETE CBC W/AUTO DIFF WBC Returned 12/27/2012 12:00 AM COMPREHEN METABOLIC PANEL Returned 12/27/2012 12:00 AM ASSAY THYROID STIM HORMONE Returned 12/27/2012 12:00 AM VITAMIN B-12 Returned 12/27/2012 12:00 AM ASSAY OF FERRITIN Returned 12/27/2012 12:00 AM ANTINUCLEAR ANTIBODIES Reviewed 12/27/2012 12:00 AM DNA ANTIBODY [place] Reviewed 12/27/2012 12:00 AM NUCLEAR ANTIGEN ANTIBODY [...] 05/31/2013 12:00 AM Decadron, Per 1 Mg [facility]# [address]-01 Reviewed 05/31/2013 12:00 AM Depo-Medrol, Per 80 Mg [facility]#0527-8534-18 Reviewed 05/31/2013 12:00 AM THER/PROPH/DIAG INJ SC/IM Reviewed 06/06/2013 12:00 AM MUSCLE TEST 2 LIMBS Reviewed 06/06/2013 12:00 AM Nerve conduction studies with F-wave Reviewed 08/26/2013 12:00 AM MAMMOGRAM SCREENING Returned 08/26/2013 12:00 AM MAMMOGRAM SCREENING Reviewed 08/30/2013 12:00 AM THER/PROPH/DIAG INJ SC/IM Reviewed 08/30/2013 12:00 AM Decadron, Per 1 Mg [facility]# [address]-02 Reviewed 08/30/2013 12:00 AM Depo-Medrol, Per 80 Mg [facility]#8529-7188-60 Reviewed 11/17/2013 12:00 AM THER/PROPH/DIAG INJ SC/IM Reviewed 11/17/2013 12:00 AM Decadron, Per 1 Mg [facility]# [address]-57 Reviewed 11/17/2013 12:00 AM Depo-Medrol 40mg Reviewed 01/06/2014 12:00 AM THER/PROPH/DIAG INJ SC/IM Reviewed 01/06/2014 12:00 AM Decadron, Per 1 Mg [facility]# [address]-95 Reviewed 01/06/2014 12:00 AM Rocephin 1 gram [facility]#1242-0368-39 Reviewed 01/10/2014 12:00 AM OFFICE/OUTPATIENT VISIT EST [...] 10/12/2014 12:00 AM Decadron, Per 1 Mg [facility]# [address]-48 Reviewed 10/12/2014 12:00 AM Depo-Medrol 40mg Reviewed [...] CVX Influenza 03/02/2013 sanofi pasteur PMC Fluzone [id number] Intramuscular Left Deltoid 03/02/2013 12/17/2012 141 Pneumococcal 02/28/2014 [employer] 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 4:05PM Wrist [...] SI joint pain Mar 08 2015 12:57PM Payers Insurance Name Company Name Plan Name Plan Number Policy Number Policy Group Number Start Date UMR UMR [id number] [facility] [employer] [facility] [id number] N/A [employer] [facility] [id number] Saturday, 2011 [facility] [employer] [facility] [id number] N/A [facility] [id number] Thursday, 2013 History of Encounters Visit Date Visit Type Provider 04/12/2015 Office visit Adela PITTMANP 03/23/2015 Office visit Chelsea Marcos CHIEF DISPATCHER SERVICE 03/08/2015 Office visit Adela PITTMANP 02/14/2015 Office visit Leonardo Cowan CHIEF DISPATCHER SERVICE 02/08/2015 Office visit Adela PITTMANP 02/07/2015 Office visit Leonardo Cowan CHIEF DISPATCHER SERVICE 01/11/2015 Office visit Adela PITTMANP 12/28/2014 Office visit Chelsea Marcos CHIEF DISPATCHER SERVICE 12/14/2014 Nurse visit Adela PITTMANP 11/23/2014 Nurse visit Adela PITTMANP 10/26/2014 Office visit Adela PITTMANP 10/12/2014 Office visit Chelsea Marcos CHIEF DISPATCHER SERVICE 10/05/2014 Nurse visit Adela PITTMANP 09/07/2014 Office visit Adela PITTMANP 08/17/2014 Office visit Chelsea Rodríguez CHIEF DISPATCHER SERVICE 08/14/2014 Office visit Adela PITTMANP 07/27/2014 Office visit Adela PITTMANP 2014 Office visit Adela PITTMANP 2014 Office visit Mica Lr CHIEF DISPATCHER SERVICE 06/28/2014 Nurse visit Adela PITTMANP 05/31/2014 Office visit Adela PITTMANP 05/03/2014 Voided Adela PITTMANP 04/26/2014 Office visit Mica Lr APRN 04/05/2014 Office visit Adela PITTMANP 03/10/2014 Office visit Adela PITTMANP 02/28/2014 Office visit Mica Lr CHIEF DISPATCHER SERVICE 02/24/2014 Office visit Adela PORTER 02/06/2014 Office visit Adela PITTMANP 01/10/2014 Nurse visit Suzan Liang MD 01/06/2014 Office visit Mica Lr CHIEF DISPATCHER SERVICE 12/15/2013 Office visit Adela PITTMANP 11/17/2013 Office visit Chelsea Rodríguez CHIEF DISPATCHER SERVICE 11/17/2013 Office visit Adela PITTMANP 10/20/2013 Office visit Adela M. Douglas ANNEALING OVEN OPERATOR 09/22/2013 Office visit Adela M. Douglas ANNEALING OVEN OPERATOR 08/30/2013 Office visit Chelsea Rodríguez CHIEF DISPATCHER SERVICE 08/26/2013 Office visit Beti Reyna CHIEF DISPATCHER SERVICE 07/29/2013 Office visit Adela Manjit Douglas ANNEALING OVEN OPERATOR 07/06/2013 [facility] Elmira Campbell MD 07/01/2013 Office visit Adela Cole ANNEALING OVEN OPERATOR 06/06/2013 Office visit Adela Cole ANNEALING OVEN OPERATOR 05/31/2013 Office visit Chelsea Rodríguez CHIEF DISPATCHER SERVICE 05/11/2013 Office visit Adela M. Douglas ANNEALING OVEN OPERATOR 03/22/2013 Office visit Adela M. Douglas ANNEALING OVEN OPERATOR 03/10/2013 Office visit Adelacatherine Cole ANNEALING OVEN OPERATOR 03/04/2013 Office visit Adela M. Douglas ANNEALING OVEN OPERATOR 03/02/2013 Office visit Odette Elam MD 02/22/2013 Office visit Adela AlexMarcus Cole ANNEALING OVEN OPERATOR 01/28/2013 Office visit Chelsea Rodríguez CHIEF DISPATCHER SERVICE 01/25/2013 Office visit Adela AlexMarcus Cole ANNEALING OVEN OPERATOR 12/27/2012 Office visit Adela Cole ANNEALING OVEN OPERATOR 12/07/2012 [facility] Pablo Croft MD 11/24/2012 Office visit Pablo Croft MD 11/02/2012 Office visit Kylah Wright CHIEF DISPATCHER SERVICE 11/02/2012 Office visit Mica Lr CHIEF DISPATCHER SERVICE 10/05/2012 [facility] Pablo Croft MD 09/30/2012 Office visit Kylah Wright CHIEF DISPATCHER SERVICE 09/01/2012 Office visit Kylah Wright CHIEF DISPATCHER SERVICE 07/21/2012 Office visit Odette Elam MD 06/16/2012 Office visit Pablo Croft MD 05/11/2012 [facility] Pablo Croft MD 04/28/2012 Office visit Pablo Croft MD 04/20/2012 Office visit Odette Elam MD 03/29/2012 Office visit Pablo Croft MD 03/16/2012 Hospital Pablo Croft MD 03/09/2012 [facility] Pablo Croft MD 02/24/2012 [facility] Pablo Croft MD 02/11/2012 Office visit Pablo Croft MD 01/28/2012 Office visit Pablo Croft MD 01/19/2012 Office visit Odette Elam MD 12/03/2011 Office visit Reji Bowens MD 11/12/2011 Office visit Alison Antoine APRN 10/28/2011 Procedures Reji Bowens MD 10/07/2011 Office visit Odette Elam MD 09/04/2011 Surgery Reji Bowens MD 08/15/2011 Surgery Reji Bowens MD 07/22/2011 [facility] Naveen Aguilar MD 07/22/2011 [facility] Reji Bowens MD 07/14/2011 Surgery Reji Bowens MD 06/26/2011 Office visit Odette Elam MD 06/24/2011 Office visit Reji Bowens MD 12/04/2010 [facility] Asha Church MD
--- OUTSIDE RECORDS SUMMARY | 2018-02-14 11:57 | XMS REPORT ---
Author Chelsea Soliz [facility] Address [address] [place], [place] [address] Care Team Providers Care Exploration Geologist Name Role Phone Chelsea Rodríguez PCP Unavailable [...] waking. for 30 days Filled on 04-09 Name Start Date Expiration Date SIG Comments [...] then Take 1 tab x 2 days. 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 Procedures [...] 11/27/2015 12:00 AM Decadron, Per 1 Mg [facility]# [address]-58 Reviewed 11/27/2015 12:00 AM Depo-Medrol 40mg Reviewed [...] 04/07/2016 12:00 AM URINE CULTURE/COLONY COUNT Returned 10/29/2011 12:00 AM CYSTOMETROGRAM W/CARTOONIST SPECIAL EFFECTS&UP Reviewed 10/29/2011 12:00 AM ELECTRO-UROFLOWMETRY FIRST Reviewed 10/29/2011 12:00 AM INTRAABDOMINAL PRESSURE TEST Reviewed 11/12/2011 12:00 AM X-RAY URETHRA/BLADDER Reviewed 11/12/2011 12:00 AM X-RAY EXAM SI JOINTS 3/> VWS Reviewed 01/28/2012 12:00 AM MRI LUMBAR SPINE W/O DYE Returned 04/20/2012 12:00 AM THER/PROPH/DIAG INJ SC/IM Reviewed 04/20/2012 12:00 AM Depo-Medrol, Per 120 Mg [facility]#4450-6238-43 Reviewed 07/21/2012 12:00 AM THER/PROPH/DIAG INJ SC/IM Reviewed 07/21/2012 12:00 AM Depo-Medrol, Per 120 Mg [facility]#2462-5990-49 Reviewed 09/01/2012 12:00 AM Drug Screen (Non-Medicare) Reviewed 09/01/2012 12:00 AM DRAIN/INJ JOINT/BURSA W/O US Reviewed 09/01/2012 12:00 AM Kenalog, Per 10 Mg [facility]#1023-2963-04 Reviewed 11/02/2012 12:00 AM Norflex, Up to 60 Mg [facility]#73289-158-77 Reviewed 11/02/2012 12:00 AM INJ TRIGGER POINT 1/2 MUSCL Reviewed 11/02/2012 12:00 AM Bupivicaine, 30 ml [facility]#3500-6889-58 Reviewed 11/02/2012 12:00 AM THER/PROPH/DIAG INJ SC/IM Reviewed 11/02/2012 12:00 AM Norflex, Up to 60 Mg [facility]#10982-199-98 Reviewed 12/27/2012 12:00 AM COMPLETE CBC W/AUTO DIFF WBC Returned 12/27/2012 12:00 AM COMPREHEN METABOLIC PANEL Returned 12/27/2012 12:00 AM ASSAY THYROID STIM HORMONE Returned 12/27/2012 12:00 AM VITAMIN B-12 Returned 12/27/2012 12:00 AM ASSAY OF FERRITIN Returned 12/27/2012 12:00 AM ANTINUCLEAR ANTIBODIES Reviewed 12/27/2012 12:00 AM DNA ANTIBODY [place] Reviewed 12/27/2012 12:00 AM NUCLEAR ANTIGEN ANTIBODY [...] 12:00 AM Decadron, Per 1 Mg [place]# [address]-57 Reviewed 05/31/2013 12:00 AM Depo-Medrol, Per 80 Mg [facility]#1057-0184-05 Reviewed 05/31/2013 12:00 AM THER/PROPH/DIAG INJ SC/IM Reviewed 06/06/2013 12:00 AM MUSCLE TEST 2 LIMBS Reviewed 06/06/2013 12:00 AM Nerve conduction studies with F-wave Reviewed 08/26/2013 12:00 AM MAMMOGRAM SCREENING Returned 08/26/2013 12:00 AM MAMMOGRAM SCREENING Reviewed 08/30/2013 12:00 AM THER/PROPH/DIAG INJ SC/IM Reviewed 08/30/2013 12:00 AM Decadron, Per 1 Mg [facility]# [address]-29 Reviewed 08/30/2013 12:00 AM Depo-Medrol, Per 80 Mg [place]#0259-0137-30 Reviewed 11/17/2013 12:00 AM THER/PROPH/DIAG INJ SC/IM Reviewed 11/17/2013 12:00 AM Decadron, Per 1 Mg [facility]# [address]-22 Reviewed 11/17/2013 12:00 AM Depo-Medrol 40mg Reviewed 01/06/2014 12:00 AM THER/PROPH/DIAG INJ SC/IM Reviewed 01/06/2014 12:00 AM Decadron, Per 1 Mg [facility]# [address]-26 Reviewed 01/06/2014 12:00 AM Rocephin 1 gram [facility]#0987-6777-14 Reviewed 01/10/2014 12:00 AM OFFICE/OUTPATIENT VISIT EST [...] 10/12/2014 12:00 AM Decadron, Per 1 Mg [facility]# [address]-33 Reviewed 10/12/2014 12:00 AM Depo-Medrol 40mg Reviewed [...] 4.22 HGB 12.90 g/dLHCT 38.50 %MCV 91.0 [facility] 30.60 pgHC 33.50 g/dLRDW SD 42 RDW CV 12.30 [...] 4.31 HGB 13.0 g/dLHCT 39.10 %MCV 91.0 [facility] 30.20 [facility] 33.[facility] g/dLRDW SD 42 RDW CV 12.70 [...] CVX Influenza 03/02/2013 sanofi pasteur PMC Fluzone [id number] Intramuscular Left Deltoid 03/02/2013 12/17/2012 141 X 02/28/2014 Merck & Co., Inc. 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 Sep 01 2012 4:05PM Wrist [...] Number Start Date [employer] [place] [id number] N/A [facility] [employer] [id number] N/A [employer] [id number] N/A [employer] [place] [id number] Saturday, 2011 [employer] [place] [id number] N/A [employer] [place] [id number] Thursday, 2013 R UMR [id number] N/A [employer] [id number] N/A History of Encounters Visit Date Visit Type Provider 04/07/2016 Office visit Chelsea Rodríguez TWISTER HAND 03/04/2016 Office visit Chelsea Rodríguez TWISTER HAND 01/14/2016 Office visit Chelsea Rodríguez TWISTER HAND 01/09/2016 Office visit Leonardo Cowan TWISTER HAND 01/04/2016 Office visit Leonardo Cowan TWISTER HAND 11/27/2015 Office visit Chelsea Rodríguez TWISTER HAND 08/23/2015 Office visit Chelsea Rodríguez TWISTER HAND 07/19/2015 Office visit 07/19/2015 Office visit Chelsea Rodríguez TWISTER HAND 06/21/2015 Office visit Chelsea Rodríguez TWISTER HAND 05/03/2015 Nurse visit Adela PITTMANP 04/12/2015 Office visit Adela PITTMANP 03/23/2015 Office visit Chelsea Rodríguez TWISTER HAND 03/08/2015 Office visit Adela PITTMANP 02/14/2015 Office visit Leonardo Pazran TWISTER HAND 02/08/2015 Office visit Adela PITTMANP 02/07/2015 Office visit Leonardo Pazran TWISTER HAND 01/11/2015 Office visit Adela PORTER 12/28/2014 Office visit Chelsea Rodríguez TWISTER HAND 12/14/2014 Nurse visit Adela PORTER 11/23/2014 Nurse visit Adela PITTMANP 10/26/2014 Office visit Adela PITTMANP 10/12/2014 Office visit 10/12/2014 Office visit Chelsea Rodríguez TWISTER HAND 10/05/2014 Nurse visit Adela PITTMANP 09/07/2014 Office visit Adela PORTER 08/17/2014 Office visit 08/17/2014 Office visit 08/17/2014 Office visit Chelsea Rodríguez TWISTER HAND 08/14/2014 Office visit Adela PITTMANP 07/27/2014 Office visit Adela PITTMANP 2014 Office visit Adela PITTMANP 2014 Office visit Mica Lr TWISTER HAND 06/28/2014 Nurse visit Adela PITTMANP 05/31/2014 Office visit Adela PITTMANP 05/03/2014 Voided Adela PITTMANP 04/26/2014 Office visit Mica Lr TWISTER HAND 04/05/2014 Office visit Adela PITTMANP 03/10/2014 Office visit Adela PITTMANP 02/28/2014 Office visit Mica Lr TWISTER HAND 02/24/2014 Office visit Adela M. Douglas GEAR ROOM KEEPER 02/06/2014 Office visit Adela Cole GEAR ROOM KEEPER 01/10/2014 Nurse visit Suzan Liang MD 01/06/2014 Office visit Mica Lr TWISTER HAND 12/15/2013 Office visit Adela M. Douglas GEAR ROOM KEEPER 11/17/2013 Office visit Chelsea Rodríguez TWISTER HAND 11/17/2013 Office visit Adela Manjit Douglas GEAR ROOM KEEPER 10/20/2013 Office visit Adela AlexMarcus Cole GEAR ROOM KEEPER 09/22/2013 Office visit Adela M. Douglas GEAR ROOM KEEPER 08/30/2013 Office visit Chelsea Rodríguez TWISTER HAND 08/26/2013 Office visit Beti Reyna TWISTER HAND 07/29/2013 Office visit Adela Cole GEAR ROOM KEEPER 07/06/2013 [facility] Elmira Campbell MD 07/01/2013 Office visit Adela M. Douglas GEAR ROOM KEEPER 06/06/2013 Office visit Adela AlexMarcus Cole GEAR ROOM KEEPER 05/31/2013 Office visit Chelsea Marcos TWISTER HAND 05/11/2013 Office visit Adela Cole GEAR ROOM KEEPER 03/22/2013 Office visit Adela Cole GEAR ROOM KEEPER 03/10/2013 Office visit Adela Cole GEAR ROOM KEEPER 03/04/2013 Office visit Adela Cole GEAR ROOM KEEPER 03/02/2013 Office visit Oedtte Elam MD 02/22/2013 Office visit Adela PITTMANP 01/28/2013 Office visit Chelsea Rodríguez TWISTER HAND 01/25/2013 Office visit Adela Cole GEAR ROOM KEEPER 12/27/2012 Office visit Adela Cole GEAR ROOM KEEPER 12/07/2012 [facility] Pablo Croft MD 11/24/2012 Office visit Pablo Croft MD 11/02/2012 Office visit Kylah Wright TWISTER HAND 11/02/2012 Office visit Mica Lr TWISTER HAND 10/05/2012 [facility] Pablo Croft MD 09/30/2012 Office visit Kylah Wright TWISTER HAND 09/01/2012 Office visit Kylah Wright TWISTER HAND 07/21/2012 Office visit Odette Elam MD [...]
--- OUTSIDE RECORDS SUMMARY | 2018-02-14 11:59 | XMS REPORT ---
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 [...] and screen Returned 10/29/2011 12:00 AM CYSTOMETROGRAM W/SENIOR FIELD ENGINEER&UP Reviewed 10/29/2011 12:00 AM ELECTRO-UROFLOWMETRY FIRST Reviewed 10/29/2011 12:00 AM INTRAABDOMINAL PRESSURE TEST Reviewed 11/12/2011 12:00 AM X-RAY URETHRA/BLADDER Reviewed 11/12/2011 12:00 AM X-RAY EXAM SI JOINTS 3/> VWS Reviewed 01/28/2012 12:00 AM MRI LUMBAR SPINE W/O DYE Returned 04/20/2012 12:00 AM THER/PROPH/DIAG INJ SC/IM Reviewed 04/20/2012 12:00 AM Depo-Medrol, Per 120 Mg [facility]#4172-5827-68 Reviewed 07/21/2012 12:00 AM THER/PROPH/DIAG INJ SC/IM Reviewed 07/21/2012 12:00 AM Depo-Medrol, Per 120 Mg [facility]#7259-0769-62 Reviewed 09/01/2012 12:00 AM Drug Screen (Non-Medicare) Reviewed 09/01/2012 12:00 AM Kenalog, Per 10 Mg [facility]#9143-8477-27 Reviewed 11/02/2012 12:00 AM Norflex, Up to 60 Mg [facility]#34873-817-21 Reviewed 11/02/2012 12:00 AM INJ TRIGGER POINT 1/2 MUSCL Reviewed 11/02/2012 12:00 AM Bupivicaine, 30 ml [facility]#5281-1125-09 Reviewed 11/02/2012 12:00 AM THER/PROPH/DIAG INJ SC/IM Reviewed 11/02/2012 12:00 AM Norflex, Up to 60 Mg [facility]#94990-349-50 Reviewed 12/27/2012 12:00 AM COMPLETE CBC W/AUTO DIFF WBC Returned 12/27/2012 12:00 AM COMPREHEN METABOLIC PANEL Returned 12/27/2012 12:00 AM ASSAY THYROID STIM HORMONE Returned 12/27/2012 12:00 AM VITAMIN B-12 Returned 12/27/2012 12:00 AM ASSAY OF FERRITIN Returned 12/27/2012 12:00 AM ANTINUCLEAR ANTIBODIES Reviewed 12/27/2012 12:00 AM DNA ANTIBODY [place] Reviewed 12/27/2012 12:00 AM NUCLEAR ANTIGEN ANTIBODY [...] 05/31/2013 12:00 AM Decadron, Per 1 Mg [facility]# [address]-04 Reviewed 05/31/2013 12:00 AM Depo-Medrol, Per 80 Mg [facility]#8936-9616-44 Reviewed 05/31/2013 12:00 AM THER/PROPH/DIAG INJ SC/IM Reviewed 06/06/2013 12:00 AM MUSCLE TEST 2 LIMBS Reviewed 06/06/2013 12:00 AM Nerve conduction studies with F-wave Reviewed 08/26/2013 12:00 AM MAMMOGRAM SCREENING Returned 08/26/2013 12:00 AM MAMMOGRAM SCREENING Reviewed 08/30/2013 12:00 AM THER/PROPH/DIAG INJ SC/IM Reviewed 08/30/2013 12:00 AM Decadron, Per 1 Mg [facility]# [address]-65 Reviewed 08/30/2013 12:00 AM Depo-Medrol, Per 80 Mg [facility]#8106-9946-30 Reviewed 11/17/2013 12:00 AM THER/PROPH/DIAG INJ SC/IM Reviewed 11/17/2013 12:00 AM Decadron, Per 1 Mg [facility]# [address]-39 Reviewed 11/17/2013 12:00 AM Depo-Medrol 40mg Reviewed 01/06/2014 12:00 AM THER/PROPH/DIAG INJ SC/IM Reviewed 01/06/2014 12:00 AM Decadron, Per 1 Mg [facility]# [address]-97 Reviewed 01/06/2014 12:00 AM Rocephin 1 gram [facility]#7073-6714-02 Reviewed 01/10/2014 12:00 AM OFFICE/OUTPATIENT VISIT EST [...] 10/12/2014 12:00 AM Decadron, Per 1 Mg [facility]# [address]-94 Reviewed 10/12/2014 12:00 AM Depo-Medrol 40mg Reviewed [...] CVX Influenza 03/02/2013 sanofi pasteur PMC Fluzone [id number] Intramuscular Left Deltoid 03/02/2013 12/17/2012 141 Pneumococcal 02/28/2014 [employer] Inc. MSD Pneumovax 23 [id number] Intramuscular Left Deltoid 02/28/2014 02/27/2009 33 Influenza 03/23/2015 sanofi pasteur PMC Fluzone Quadrivalent [id number] Intramuscular Right Deltoid 03/23/2015 12/29/2014 140 History [...] Chronic pain syndrome May 03 2015 3:19PM Payers Insurance Name Company Name Plan Name Plan Number Policy Number Policy Group Number Start Date R R [id number] N/A [facility] [employer] [facility] [id number] N/A [employer] [place] [id number] Saturday, 2011 [employer] [place] [id number] N/A [employer] [place] [id number] Thursday, 2013 History of Encounters Visit Date Visit Type Provider 05/03/2015 Nurse visit Adela Cole SHELL MACHINE OPERATOR 04/12/2015 Office visit Adela PITTMANP 03/23/2015 Office visit Chelsea Rodríguez ARTILLERY OFFICER 03/08/2015 Office visit Adela PITTMANP 02/14/2015 Office visit Leonardo Cowan ARTILLERY OFFICER 02/08/2015 Office visit Adela PITTMANP 02/07/2015 Office visit Leonardo Cowan ARTILLERY OFFICER 01/11/2015 Office visit Adela PITTMANP 12/28/2014 Office visit Chelsea Rodríguez ARTILLERY OFFICER 12/14/2014 Nurse visit Adela PITTMANP 11/23/2014 Nurse visit Adela PITTMANP 10/26/2014 Office visit Adela PITTMANP 10/12/2014 Office visit Chelsea Rodríguez ARTILLERY OFFICER 10/05/2014 Nurse visit Adela PITTMANP 09/07/2014 Office visit Adela PITTMANP 08/17/2014 Office visit Chelsea Rodríguez ARTILLERY OFFICER 08/14/2014 Office visit Adela PITTMANP 07/27/2014 Office visit Adela PITTMANP 2014 Office visit Adela PITTMANP 2014 Office visit Mica Lr ARTILLERY OFFICER 06/28/2014 Nurse visit Adela PITTMANP 05/31/2014 Office visit Adela PITTMANP 05/03/2014 Voided Adela PITTMANP 04/26/2014 Office visit Mica Lr ARTILLERY OFFICER 04/05/2014 Office visit Adela PITTMANP 03/10/2014 Office visit Adela PITTMANP 02/28/2014 Office visit Mica Lr ARTILLERY OFFICER 02/24/2014 Office visit Adela PITTMANP 02/06/2014 Office visit dAela PITTMANP 01/10/2014 Nurse visit Suzan Liang MD 01/06/2014 Office visit Mica Lr ARTILLERY OFFICER 12/15/2013 Office visit Adela PITTMANP 11/17/2013 Office visit Chelsea Rodríguez ARTILLERY OFFICER 11/17/2013 Office visit Adela Manjit Douglas SHELL MACHINE OPERATOR 10/20/2013 Office visit Adela AlexMarcus Cole SHELL MACHINE OPERATOR 09/22/2013 Office visit Adela M. Douglas SHELL MACHINE OPERATOR 08/30/2013 Office visit Chelsea Rodríguez ARTILLERY OFFICER 08/26/2013 Office visit Beti Manjit Reyna ARTILLERY OFFICER 07/29/2013 Office visit Adela Cole SHELL MACHINE OPERATOR 07/06/2013 [facility] Elmira Campbell MD 07/01/2013 Office visit Adela Saravia Douglas SHELL MACHINE OPERATOR 06/06/2013 Office visit Adela Saravia Douglas SHELL MACHINE OPERATOR 05/31/2013 Office visit Chelsea Rodríguez ARTILLERY OFFICER 05/11/2013 Office visit Adela AlexMarcus Cole SHELL MACHINE OPERATOR 03/22/2013 Office visit Adela Manjit Douglas SHELL MACHINE OPERATOR 03/10/2013 Office visit Adela M. Douglas SHELL MACHINE OPERATOR 03/04/2013 Office visit Adela Manjit Douglas SHELL MACHINE OPERATOR 03/02/2013 Office visit Odette Elam MD 02/22/2013 Office visit Adela Cole SHELL MACHINE OPERATOR 01/28/2013 Office visit Chelsea Rodríguez ARTILLERY OFFICER 01/25/2013 Office visit Adela Cole SHELL MACHINE OPERATOR 12/27/2012 Office visit Adela Cole SHELL MACHINE OPERATOR 12/07/2012 [facility] Pablo Croft MD 11/24/2012 Office visit Pablo Croft MD 11/02/2012 Office visit Kylah Wright ARTILLERY OFFICER 11/02/2012 Office visit Mica Lr ARTILLERY OFFICER 10/05/2012 [facility] Pablo Croft MD 09/30/2012 Office visit Kylah Wright ARTILLERY OFFICER 09/01/2012 Office visit Kylah Wright ARTILLERY OFFICER 07/21/2012 Office visit Odette Elam MD 06/16/2012 [...]
--- OUTSIDE RECORDS SUMMARY | 2018-02-14 12:01 | XMS REPORT ---
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 [...] and screen Returned 10/29/2011 12:00 AM CYSTOMETROGRAM W/CORROSION CONTROL SPECIALIST&UP Reviewed 10/29/2011 12:00 AM ELECTRO-UROFLOWMETRY FIRST Reviewed 10/29/2011 12:00 AM INTRAABDOMINAL PRESSURE TEST Reviewed 11/12/2011 12:00 AM X-RAY URETHRA/BLADDER Reviewed 11/12/2011 12:00 AM X-RAY EXAM SI JOINTS 3/> VWS Reviewed 01/28/2012 12:00 AM MRI LUMBAR SPINE W/O DYE Returned 04/20/2012 12:00 AM THER/PROPH/DIAG INJ SC/IM Reviewed 04/20/2012 12:00 AM Depo-Medrol, Per 120 Mg [facility]#7058-1720-68 Reviewed 07/21/2012 12:00 AM THER/PROPH/DIAG INJ SC/IM Reviewed 07/21/2012 12:00 AM Depo-Medrol, Per 120 Mg [facility]#8440-0194-20 Reviewed 09/01/2012 12:00 AM Drug Screen (Non-Medicare) Reviewed 09/01/2012 12:00 AM Kenalog, Per 10 Mg [facility]#0818-3241-32 Reviewed 11/02/2012 12:00 AM Norflex, Up to 60 Mg [facility]#39990-325-52 Reviewed 11/02/2012 12:00 AM INJ TRIGGER POINT 1/2 MUSCL Reviewed 11/02/2012 12:00 AM Bupivicaine, 30 ml [facility]#0964-5889-25 Reviewed 11/02/2012 12:00 AM THER/PROPH/DIAG INJ SC/IM Reviewed 11/02/2012 12:00 AM Norflex, Up to 60 Mg [facility]#13508-070-47 Reviewed 12/27/2012 12:00 AM COMPLETE CBC W/AUTO DIFF WBC Returned 12/27/2012 12:00 AM COMPREHEN METABOLIC PANEL Returned 12/27/2012 12:00 AM ASSAY THYROID STIM HORMONE Returned 12/27/2012 12:00 AM VITAMIN B-12 Returned 12/27/2012 12:00 AM ASSAY OF FERRITIN Returned 12/27/2012 12:00 AM ANTINUCLEAR ANTIBODIES Reviewed 12/27/2012 12:00 AM DNA ANTIBODY [place] Reviewed 12/27/2012 12:00 AM NUCLEAR ANTIGEN ANTIBODY [...] 12:00 AM Decadron, Per 1 Mg [facility]# [address]-84 Reviewed 05/31/2013 12:00 AM Depo-Medrol, Per 80 Mg [facility]#5616-5432-17 Reviewed 05/31/2013 12:00 AM THER/PROPH/DIAG INJ SC/IM Reviewed 06/06/2013 12:00 AM MUSCLE TEST 2 LIMBS Reviewed 06/06/2013 12:00 AM Nerve conduction studies with F-wave Reviewed 08/26/2013 12:00 AM MAMMOGRAM SCREENING Returned 08/26/2013 12:00 AM MAMMOGRAM SCREENING Reviewed 08/30/2013 12:00 AM THER/PROPH/DIAG INJ SC/IM Reviewed 08/30/2013 12:00 AM Decadron, Per 1 Mg [facility]# [address]-77 Reviewed 08/30/2013 12:00 AM Depo-Medrol, Per 80 Mg [facility]#3044-2122-22 Reviewed 11/17/2013 12:00 AM THER/PROPH/DIAG INJ SC/IM Reviewed 11/17/2013 12:00 AM Decadron, Per 1 Mg [facility]# [address]-72 Reviewed 11/17/2013 12:00 AM Depo-Medrol 40mg Reviewed 01/06/2014 12:00 AM THER/PROPH/DIAG INJ SC/IM Reviewed 01/06/2014 12:00 AM Decadron, Per 1 Mg [facility]# [address]-51 Reviewed 01/06/2014 12:00 AM Rocephin 1 gram [facility]#0321-2867-92 Reviewed 01/10/2014 12:00 AM OFFICE/OUTPATIENT VISIT EST [...] 12:00 AM Decadron, Per 1 Mg [facility]# [address]-57 Reviewed 10/12/2014 12:00 AM Depo-Medrol 40mg Reviewed [...] CVX Influenza 03/02/2013 sanofi pasteur PMC Fluzone [id number] Intramuscular Left Deltoid 03/02/2013 12/17/2012 141 Pneumococcal 02/28/2014 Merck & Co., Inc. MSD Pneumovax 23 [id number] Intramuscular Left Deltoid 02/28/2014 02/27/2009 33 Influenza 03/23/2015 sanofi pasteur PMC Fluzone Quadrivalent [id number] Intramuscular Right Deltoid 03/23/2015 12/29/2014 140 History [...] Policy Group Number Start Date R UMR [id number] N[facility] [employer] [facility] [id number] N/A [employer] [facility] [id number] Saturday, 2011 [employer] [place] [id number] N/A [facility] [id number] Thursday, 2013 History of Encounters Visit Date Visit Type Provider 06/21/2015 Office visit Chelsea Rodríguez SPRAYER AUTO PARTS 05/03/2015 Nurse visit Adela PITTMANP 04/12/2015 Office visit Adela PITTMANP 03/23/2015 Office visit Chelsea Rodríguez SPRAYER AUTO PARTS 03/08/2015 Office visit Adela PITTMANP 02/14/2015 Office visit Leonardo Cowan SPRAYER AUTO PARTS 02/08/2015 Office visit Adela PITTMANP 02/07/2015 Office visit Leonardo Camryn SPRAYER AUTO PARTS 01/11/2015 Office visit Adela PITTMANP 12/28/2014 Office visit Chelsea Rodríguez SPRAYER AUTO PARTS 12/14/2014 Nurse visit Adela PITTMANP 11/23/2014 Nurse visit Adela PITTMANP 10/26/2014 Office visit Adela PITTMANP 10/12/2014 Office visit 10/12/2014 Office visit Chelsea Marcos SPRAYER AUTO PARTS 10/05/2014 Nurse visit Adela PITTMANP 09/07/2014 Office visit Adela PORTER 08/17/2014 Office visit 08/17/2014 Office visit 08/17/2014 Office visit Chelsea Rodríguez SPRAYER AUTO PARTS 08/14/2014 Office visit Adela PITTMANP 07/27/2014 Office visit Adela PITTMANP 2014 Office visit Adela PITTMANP 2014 Office visit Mica Lr SPRAYER AUTO PARTS 06/28/2014 Nurse visit Adela PITTMANP 05/31/2014 Office visit Adela PITTMANP 05/03/2014 Voided Adela PORTER 04/26/2014 Office visit Mica Lr SPRAYER AUTO PARTS 04/05/2014 Office visit Adela PITTMANP 03/10/2014 Office visit Adela PITTMANP 02/28/2014 Office visit Mica Lr SPRAYER AUT[employer] PARTS 02/24/2014 Office visit Adela PITTMANP 02/06/2014 Office visit Adela PITTMANP 01/10/2014 Nurse visit Suzan Liang MD 01/06/2014 Office visit Mica Lr [employer]AYER AUT[employer] PARTS 12/15/2013 Office visit Adela PITTMANP 11/17/2013 Office visit Chelsea Rodríguez SPRAYER AUTO PARTS 11/17/2013 Office visit Adela M. Douglas WATER SOFTENER SERVICER AND INSTALLER 10/20/2013 Office visit Adela Manjit Douglas WATER SOFTENER SERVICER AND INSTALLER 09/22/2013 Office visit Adela Saravia Douglas WATER SOFTENER SERVICER AND INSTALLER 08/30/2013 Office visit Chelsea Rodríguez SPRAYER AUTO PARTS 08/26/2013 Office visit Beti MMarcus Reyna SPRAYER AUTO PARTS 07/29/2013 Office visit Adela Cole WATER SOFTENER SERVICER AND INSTALLER 07/06/2013 [facility] Elmira Campbell MD 07/01/2013 Office visit Adela Saravia Douglas WATER SOFTENER SERVICER AND INSTALLER 06/06/2013 Office visit Adelacatherine Cole WATER SOFTENER SERVICER AND INSTALLER 05/31/2013 Office visit Chelsea Rodríguez SPRAYER AUTO PARTS 05/11/2013 Office visit Adela M. Douglas WATER SOFTENER SERVICER AND INSTALLER 03/22/2013 Office visit Adela M. Douglas WATER SOFTENER SERVICER AND INSTALLER 03/10/2013 Office visit Adelacatherine Cole WATER SOFTENER SERVICER AND INSTALLER 03/04/2013 Office visit Adela Manjit Douglas WATER SOFTENER SERVICER AND INSTALLER 03/02/2013 Office visit Odette Elam MD 02/22/2013 Office visit Adela Cole WATER SOFTENER SERVICER AND INSTALLER 01/28/2013 Office visit Chelsea Rodríguez SPRAYER AUTO PARTS 01/25/2013 Office visit Adela AlexMarcus Cole WATER SOFTENER SERVICER AND INSTALLER 12/27/2012 Office visit Adela Cole WATER SOFTENER SERVICER AND INSTALLER 12/07/2012 [facility] Pablo Croft MD 11/24/2012 Office visit Pablo Croft MD 11/02/2012 Office visit Kylah Wright SPRAYER AUTO PARTS 11/02/2012 Office visit Mica Lr SPRAYER AUTO PARTS 10/05/2012 [facility] Pablo Croft MD 09/30/2012 Office visit Kylah Wright SPRAYER AUTO PARTS 09/01/2012 Office visit Kylah Wright SPRAYER AUTO PARTS 07/21/2012 Office visit Odette Elam MD 06/16/2012 [...]
--- OUTSIDE RECORDS SUMMARY | 2018-02-14 12:03 | XMS REPORT ---
Author Chelsea Soliz [facility] Address [address] [place], [place] [id number] Care Team Providers Care Nut Process Helper Name Role Phone Chelsea Rodríguez PCP [...] 30 days Trintellix 10 mg oral tablet 05/15/2016 07/06/2016 take 1 tablet (10 mg) by [...] then Take 1 tab x 2 days. 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 [...] Mg [facility]# [address]-79 Reviewed 11/27/2015 12:00 AM Depo-Medrol 40mg Reviewed [...] 60 Mg [facility]#3459-1549-26 Reviewed 10/29/2011 12:00 AM CYSTOMETROGRAM W/BENCH LATHE OPERATOR&UP Reviewed 10/29/2011 12:00 AM ELECTRO-UROFLOWMETRY FIRST Reviewed 10/29/2011 12:00 AM INTRAABDOMINAL PRESSURE TEST Reviewed 11/12/2011 12:00 AM X-RAY URETHRA/BLADDER Reviewed 11/12/2011 12:00 AM X-RAY EXAM SI JOINTS 3/> VWS Reviewed 01/28/2012 12:00 AM MRI LUMBAR SPINE W/O DYE Reviewed 04/20/2012 12:00 AM THER/PROPH/DIAG INJ SC/IM Reviewed 04/20/2012 12:00 AM Depo-Medrol, Per 120 Mg [facility]#7346-9524-84 Reviewed 07/21/2012 12:00 AM THER/PROPH/DIAG INJ SC/IM Reviewed 07/21/2012 12:00 AM Depo-Medrol, Per 120 Mg [facility]#8873-7934-23 Reviewed 09/01/2012 12:00 AM Drug Screen (Non-Medicare) Reviewed 09/01/2012 12:00 AM DRAIN/INJ JOINT/BURSA W/O US Reviewed 09/01/2012 12:00 AM Kenalog, Per 10 Mg [facility]#9686-3803-88 Reviewed 11/02/2012 12:00 AM Norflex, Up to 60 Mg [facility]#81293-035-53 Reviewed 11/02/2012 12:00 AM INJ TRIGGER POINT 1/2 MUSCL Reviewed 11/02/2012 12:00 AM Bupivicaine, 30 ml [facility]#0455-5780-92 Reviewed 11/02/2012 12:00 AM THER/PROPH/DIAG INJ SC/IM Reviewed 11/02/2012 12:00 AM Norflex, Up to 60 Mg [facility]#42641-202-69 Reviewed 12/27/2012 12:00 AM COMPLETE CBC W/AUTO DIFF WBC Reviewed 12/27/2012 12:00 AM COMPREHEN METABOLIC PANEL Reviewed 12/27/2012 12:00 AM ASSAY THYROID STIM HORMONE Reviewed 12/27/2012 12:00 AM VITAMIN B-12 Reviewed 12/27/2012 12:00 AM ASSAY OF FERRITIN Reviewed 12/27/2012 12:00 AM ANTINUCLEAR ANTIBODIES Reviewed 12/27/2012 12:00 AM DNA ANTIBODY [place] Reviewed 12/27/2012 12:00 AM NUCLEAR ANTIGEN ANTIBODY [...] 12:00 AM Decadron, Per 1 Mg [place]# [address]-93 Reviewed 05/31/2013 12:00 AM Depo-Medrol, Per 80 Mg ND#0795-6835-30 Reviewed 05/31/2013 12:00 AM THER/PROPH/DIAG INJ SC/IM Reviewed 06/06/2013 12:00 AM MUSCLE TEST 2 LIMBS Reviewed 06/06/2013 12:00 AM Nerve conduction studies with F-wave Reviewed 08/26/2013 12:00 AM MAMMOGRAM SCREENING Reviewed 08/26/2013 12:00 AM MAMMOGRAM SCREENING Reviewed 08/30/2013 12:00 AM THER/PROPH/DIAG INJ SC/IM Reviewed 08/30/2013 12:00 AM Decadron, Per 1 Mg NDC# [address]-62 Reviewed 08/30/2013 12:00 AM Depo-Medrol, Per 80 Mg ND#1774-6901-99 Reviewed 11/17/2013 12:00 AM THER/PROPH/DIAG INJ SC/IM Reviewed 11/17/2013 12:00 AM Decadron, Per 1 Mg [facility]# [address]-27 Reviewed 11/17/2013 12:00 AM Depo-Medrol 40mg Reviewed 01/06/2014 12:00 AM THER/PROPH/DIAG INJ SC/IM Reviewed 01/06/2014 12:00 AM Decadron, Per 1 Mg [facility]# [address]-34 Reviewed 01/06/2014 12:00 AM Rocephin 1 gram [facility]#8209-7615-70 Reviewed 01/10/2014 12:00 AM OFFICE/OUTPATIENT VISIT EST [...] Mg [facility]# [address]-00 Reviewed 10/12/2014 12:00 AM Depo-Medrol 40mg Reviewed [...] CVX Influenza 03/02/2013 sanofi pasteur PMC Fluzone [id number] Intramuscular Left Deltoid 03/02/2013 12/17/2012 141 X 02/28/2014 [employer]ck [employer] Inc. MSD Pneumovax 23 [id number] Intramuscular Left Deltoid 02/28/2014 02/27/2009 33 Influenza 03/23/2015 sanofi pasteur PMC Fluzone Quadrivalent [id number] Intramuscular Right Deltoid 03/23/2015 12/29/2014 140 Influenza [...] thoracic back pain May 05 2016 9:43AM Payers Insurance Name Company Name Plan Name Plan Number Policy Number Policy Group Number Start Date [employer] [place] [id number] N/A Res Care ResCare [id number] N/A [employer] [id number] N/A [employer] [place] [id number] Saturday, 2011 [employer] [place] [id number] N/A [employer] [place] [id number] Thursday, 2013 UM UMR [id number] N/A [employer] [id number] N/A History of Encounters Visit Date Visit [...] Adela PORTER 02/07/2015 Office visit Leonardo Cowan SHEET CATCHER 01/11/2015 Office visit Adela Cole SUPERVISOR CHASSIS ASSEMBLY 12/28/2014 Office visit Chelsea Rodríguez SHEET CATCHER 12/14/2014 Nurse visit Adela Cole SUPERVISOR CHASSIS ASSEMBLY 11/23/2014 Nurse visit Adela Cole SUPERVISOR CHASSIS ASSEMBLY 10/26/2014 Office visit Adela Cole SUPERVISOR CHASSIS ASSEMBLY 10/12/2014 Office visit 10/12/2014 Office visit Chelsea Rodríguez SHEET CATCHER 10/05/2014 Nurse visit Adela Cole SUPERVISOR CHASSIS ASSEMBLY 09/07/2014 Office visit Adela Cole SUPERVISOR CHASSIS ASSEMBLY 08/17/2014 Office visit 08/17/2014 Office visit 08/17/2014 Office visit Chelsea Rodríguez SHEET CATCHER 08/14/2014 Office visit Adela Cole SUPERVISOR CHASSIS ASSEMBLY 07/27/2014 Office visit Adela Cole SUPERVISOR CHASSIS ASSEMBLY 2014 Office visit Adela Cole SUPERVISOR CHASSIS ASSEMBLY 2014 Office visit Mica Lr SHEET CATCHER 06/28/2014 Nurse visit Adela Cole SUPERVISOR CHASSIS ASSEMBLY 05/31/2014 Office visit Adela Cole SUPERVISOR CHASSIS ASSEMBLY 05/03/2014 Voided Adela Cole SUPERVISOR CHASSIS ASSEMBLY 04/26/2014 Office visit Mica Lr SHEET CATCHER 04/05/2014 Office visit Adela Cole SUPERVISOR CHASSIS ASSEMBLY 03/10/2014 Office visit Adela Cole SUPERVISOR CHASSIS ASSEMBLY 02/28/2014 Office visit Mica Lr SHEET CATCHER 02/24/2014 Office visit Adela PITTMANP 02/06/2014 Office visit Adela Cole SUPERVISOR CHASSIS ASSEMBLY 01/10/2014 Nurse visit Suzan Liang MD 01/06/2014 Office visit Mica Lr SHEET CATCHER 12/15/2013 Office visit Adela Cole SUPERVISOR CHASSIS ASSEMBLY 11/17/2013 Office visit Chelsea Rodríguez SHEET CATCHER 11/17/2013 Office visit Adela Cole SUPERVISOR CHASSIS ASSEMBLY 10/20/2013 Office visit Adela PITTMANP 09/22/2013 Office visit Adela Cole SUPERVISOR CHASSIS ASSEMBLY 08/30/2013 Office visit Chelsea Rodríguez SHEET CATCHER 08/26/2013 Office visit Beti Reyna SHEET CATCHER 07/29/2013 Office visit Adela Cole SUPERVISOR CHASSIS ASSEMBLY 07/06/2013 Procedures Elmira Campbell MD 07/01/2013 Office visit Adela Cole SUPERVISOR CHASSIS ASSEMBLY 06/06/2013 Office visit Adela Cole SUPERVISOR CHASSIS ASSEMBLY 05/31/2013 Office visit Chelsea Rodríguez SHEET CATCHER 05/11/2013 Office visit Adela Saravia Douglas SUPERVISOR CHASSIS ASSEMBLY 03/22/2013 Office visit Adela Cole SUPERVISOR CHASSIS ASSEMBLY 03/10/2013 Office visit Adela Cole SUPERVISOR CHASSIS ASSEMBLY 03/04/2013 Office visit Adela M. Douglas SUPERVISOR CHASSIS ASSEMBLY 03/02/2013 Office visit Odette Elam MD 02/22/2013 Office visit Adela Saravia Douglas SUPERVISOR CHASSIS ASSEMBLY 01/28/2013 Office visit Chelsea Rodríguez SHEET CATCHER 01/25/2013 Office visit Adela Cole SUPERVISOR CHASSIS ASSEMBLY 12/27/2012 Office visit Adela M. Douglas SUPERVISOR CHASSIS ASSEMBLY 12/07/2012 [facility] Pablo Croft MD 11/24/2012 Office visit Pablo Croft MD 11/02/2012 Office visit Kylah Wright SHEET CATCHER 11/02/2012 Office visit Mica Lr SHEET CATCHER 10/05/2012 [facility] Pablo Croft MD 09/30/2012 Office visit Kylah Wright SHEET CATCHER 09/01/2012 Office visit Kylah Wright SHEET CATCHER 07/21/2012 Office visit Odette Elam MD 06/16/2012 Office visit Pablo Croft MD 05/11/2012 [facility] Pablo Croft MD 04/28/2012 Office visit Pablo Croft MD 04/20/2012 Office visit Odette Elam MD 03/29/2012 Office visit Pablo Croft MD 03/16/2012 [facility] Pablo Croft MD 03/09/2012 [facility] Pablo Croft MD 02/24/2012 [facility] Pablo Croft MD 02/11/2012 Office visit Pablo Croft MD 01/28/2012 Office visit Pablo Croft MD 01/19/2012 Office visit Odette Elam MD 12/03/2011 Office visit Reji Bowens MD 11/12/2011 Office visit Alison Antoine SHEET CATCHER 10/28/2011 Procedures Reji Bowens MD 10/07/2011 Office visit Odette Elam MD 09/04/2011 Surgery Reji Bowens MD 08/15/2011 Surgery Reji Bowens MD 07/22/2011 [facility] Naveen Aguilar MD 07/22/2011 [facility] Reji Bowens MD 07/14/2011 Surgery Reji Bowens MD 06/26/2011 Office visit Odette Elam MD 06/24/2011 Office visit Reji Bowens MD 12/04/2010 [facility] Asha Church MD
--- OUTSIDE RECORDS SUMMARY | 2018-02-14 12:06 | XMS REPORT ---
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 History of Procedures [...] 11/27/2015 12:00 AM Decadron, Per 1 Mg [facility]# [address]-80 Reviewed 11/27/2015 12:00 AM Depo-Medrol 40mg Reviewed [...] PLUS IM Reviewed 10/29/2011 12:00 AM CYSTOMETROGRAM W/HYDROLOGY TEACHER&UP Reviewed 10/29/2011 12:00 AM ELECTRO-UROFLOWMETRY FIRST Reviewed 10/29/2011 12:00 AM INTRAABDOMINAL PRESSURE TEST Reviewed 11/12/2011 12:00 AM X-RAY URETHRA/BLADDER Reviewed 11/12/2011 12:00 AM X-RAY EXAM SI JOINTS 3/> VWS Reviewed 01/28/2012 12:00 AM MRI LUMBAR SPINE W/O DYE Returned 04/20/2012 12:00 AM THER/PROPH/DIAG INJ SC/IM Reviewed 04/20/2012 12:00 AM Depo-Medrol, Per 120 Mg NDC#3499-7568-33 Reviewed 07/21/2012 12:00 AM THER/PROPH/DIAG INJ SC/IM Reviewed 07/21/2012 12:00 AM Depo-Medrol, Per 120 Mg N[facility]#4309-6982-07 Reviewed 09/01/2012 12:00 AM Drug Screen (Non-Medicare) Reviewed 09/01/2012 12:00 AM DRAIN/INJ JOINT/BURSA W/O US Reviewed 09/01/2012 12:00 AM Kenalog, Per 10 Mg N[facility]#2828-2159-89 Reviewed 11/02/2012 12:00 AM Norflex, Up to 60 Mg [facility]#36076-094-63 Reviewed 11/02/2012 12:00 AM INJ TRIGGER POINT 1/2 MUSCL Reviewed 11/02/2012 12:00 AM Bupivicaine, 30 ml [facility]#6187-9745-29 Reviewed 11/02/2012 12:00 AM THER/PROPH/DIAG INJ SC/IM Reviewed 11/02/2012 12:00 AM Norflex, Up to 60 Mg [facility]#46752-022-87 Reviewed 12/27/2012 12:00 AM COMPLETE CBC W/AUTO DIFF WBC Returned 12/27/2012 12:00 AM COMPREHEN METABOLIC PANEL Returned 12/27/2012 12:00 AM ASSAY THYROID STIM HORMONE Returned 12/27/2012 12:00 AM VITAMIN B-12 Returned 12/27/2012 12:00 AM ASSAY OF FERRITIN Returned 12/27/2012 12:00 AM ANTINUCLEAR ANTIBODIES Reviewed 12/27/2012 12:00 AM DNA ANTIBODY [place] Reviewed 12/27/2012 12:00 AM NUCLEAR ANTIGEN ANTIBODY [...] 05/31/2013 12:00 AM Decadron, Per 1 Mg [facility]# [address]-57 Reviewed 05/31/2013 12:00 AM Depo-Medrol, Per 80 Mg [facility]#8068-6953-40 Reviewed 05/31/2013 12:00 AM THER/PROPH/DIAG INJ SC/IM Reviewed 06/06/2013 12:00 AM MUSCLE TEST 2 LIMBS Reviewed 06/06/2013 12:00 AM Nerve conduction studies with F-wave Reviewed 08/26/2013 12:00 AM MAMMOGRAM SCREENING Returned 08/26/2013 12:00 AM MAMMOGRAM SCREENING Reviewed 08/30/2013 12:00 AM THER/PROPH/DIAG INJ SC/IM Reviewed 08/30/2013 12:00 AM Decadron, Per 1 Mg [facility]# [address]-48 Reviewed 08/30/2013 12:00 AM Depo-Medrol, Per 80 Mg [facility]#3361-0531-41 Reviewed 11/17/2013 12:00 AM THER/PROPH/DIAG INJ SC/IM Reviewed 11/17/2013 12:00 AM Decadron, Per 1 Mg [facility]# [address]-25 Reviewed 11/17/2013 12:00 AM Depo-Medrol 40mg Reviewed 01/06/2014 12:00 AM THER/PROPH/DIAG INJ SC/IM Reviewed 01/06/2014 12:00 AM Decadron, Per 1 Mg [facility]# [address]-83 Reviewed 01/06/2014 12:00 AM Rocephin 1 gram [facility]#1692-5443-88 Reviewed 01/10/2014 12:00 AM OFFICE/OUTPATIENT VISIT EST [...] THER/PROPH/DIAG INJ SC/IM Reviewed 10/12/2014 12:00 AM [place] Per 1 Mg [facility]# [address]-17 Reviewed 10/12/2014 12:00 AM Depo-Medrol 40mg Reviewed [...] CVX Influenza 03/02/2013 sanofi pasteur PMC Fluzone [id number] Intramuscular Left Deltoid 03/02/2013 12/17/2012 141 X 02/28/2014 Merck & Co., [employer] 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 4:05PM Wrist [...] Number Start Date [employer] [place] [id number] N/A Res Care ResCare [id number] N/A [employer] [id number] N/A [employer] [place] [id number] Saturday, 2011 [employer] [place] [id number] N/A [employer] [place] [id number] Thursday, 2013 R UMR [id number] N/A [facility] [employer] [facility] [id number] N/A History of Encounters Visit Date Visit [...] Adela PORTER 03/23/2015 Office visit Chelsea Rodríguez TECHNICAL SERVICES MANAGER 03/08/2015 Office visit Adela Cole BEREAVEMENT COORDINATOR 02/14/2015 Office visit Leonardo Cowan TECHNICAL SERVICES MANAGER 02/08/2015 Office visit Adela PITTMANP 02/07/2015 Office visit Leonardo Cowan TECHNICAL SERVICES MANAGER 01/11/2015 Office visit Adela Cole BEREAVEMENT COORDINATOR 12/28/2014 Office visit Chelsea Rodríguez TECHNICAL SERVICES MANAGER 12/14/2014 Nurse visit Adela Cole BEREAVEMENT COORDINATOR 11/23/2014 Nurse visit Adela Cole BEREAVEMENT COORDINATOR 10/26/2014 Office visit Adela PITTMANP 10/12/2014 Office visit 10/12/2014 Office visit Chelsea Rodríguez TECHNICAL SERVICES MANAGER 10/05/2014 Nurse visit Adela Cole BEREAVEMENT COORDINATOR 09/07/2014 Office visit Adela PITTMANP 08/17/2014 Office visit 08/17/2014 Office visit 08/17/2014 Office visit Chelsea Rodríguez TECHNICAL SERVICES MANAGER 08/14/2014 Office visit Adela PITTMANP 07/27/2014 Office visit Adela PITTMANP 2014 Office visit Adela PITTMANP 2014 Office visit Mica Lr TECHNICAL SERVICES MANAGER 06/28/2014 Nurse visit Adela PITTMANP 05/31/2014 Office visit Adela PITTMANP 05/03/2014 Voided Adela PITTMANP 04/26/2014 Office visit Mica Lr TECHNICAL SERVICES MANAGER 04/05/2014 Office visit Adela PITTMANP 03/10/2014 Office visit Adela PITTMANP 02/28/2014 Office visit Mica Lr TECHNICAL SERVICES MANAGER 02/24/2014 Office visit Adela PITTMANP 02/06/2014 Office visit Adela PITTMANP 01/10/2014 Nurse visit Suzan Liang MD 01/06/2014 Office visit Mica Lr TECHNICAL SERVICES MANAGER 12/15/2013 Office visit Adela PITTMANP 11/17/2013 Office visit Chelsea Rodríguez TECHNICAL SERVICES MANAGER 11/17/2013 Office visit Adela PITTMANP 10/20/2013 Office visit Adela PITTMANP 09/22/2013 Office visit Adela PITTMANP 08/30/2013 Office visit Chelsea Rodríguez TECHNICAL SERVICES MANAGER 08/26/2013 Office visit Beti Reyna TECHNICAL SERVICES MANAGER 07/29/2013 Office visit Adela Cole BEREAVEMENT COORDINATOR 07/06/2013 Procedures Elmira Campbell MD 07/01/2013 Office visit Adela Cole BEREAVEMENT COORDINATOR 06/06/2013 Office visit Adela Cole BEREAVEMENT COORDINATOR 05/31/2013 Office visit Chelsea Rodríguez TECHNICAL SERVICES MANAGER 05/11/2013 Office visit Adela AlexMarcus Cole BEREAVEMENT COORDINATOR 03/22/2013 Office visit Adela Cole BEREAVEMENT COORDINATOR 03/10/2013 Office visit Adela Cole BEREAVEMENT COORDINATOR 03/04/2013 Office visit Adela Cole BEREAVEMENT COORDINATOR 03/02/2013 Office visit Odette Elam MD 02/22/2013 Office visit Adela Cole BEREAVEMENT COORDINATOR 01/28/2013 Office visit Chelsea Rodríguez TECHNICAL SERVICES MANAGER 01/25/2013 Office visit Adela Cole BEREAVEMENT COORDINATOR 12/27/2012 Office visit Adela Cole BEREAVEMENT COORDINATOR 12/07/2012 Hospital Pablo Croft MD 11/24/2012 Office visit Pablo Croft MD 11/02/2012 Office visit Kylah Wright TECHNICAL SERVICES MANAGER 11/02/2012 Office visit Mica Lr TECHNICAL SERVICES MANAGER 10/05/2012 Hospital Pablo Croft MD 09/30/2012 Office visit Kylah Wright TECHNICAL SERVICES MANAGER 09/01/2012 Office visit Kylah Wright TECHNICAL SERVICES MANAGER 07/21/2012 Office visit Odette lEam MD 06/16/2012 Office visit Pablo Croft MD [...] Bowens MD 11/12/2011 Office visit Alison Antoine TECHNICAL SERVICES MANAGER 10/28/2011 Procedures Reji Bowens MD 10/07/2011 [...]
--- OUTSIDE RECORDS SUMMARY | 2018-02-14 12:07 | XMS REPORT ---
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 Take only if at least 7 hrs of bedtime remain before planned time of waking. alprazolam 0.5 mg oral tablet 09/26/2015 12/25/2015 take 1 tablet by oral route every 6 hours for 30 days Brintellix 5 mg oral tablet 08/31/2015 10/30/2015 take 1 tablet (5 mg) by oral route once daily at the same time each day for 30 days Name Start Date Expiration [...] then Take 1 tab x 2 days. Triplett 10-325 mg oral tablet 05/03/2015 06/02/2015 take 1 tablet by oral route every 6 hours as needed for 30 days gabapentin 100 mg oral capsule 08/23/2015 09/22/2015 take 1 capsule by oral route 3 times a day for 30 days Discontinued Name Start [...] and screen Returned 10/29/2011 12:00 AM CYSTOMETROGRAM W/ASSEMBLER TUBING&UP Reviewed 10/29/2011 12:00 AM ELECTRO-UROFLOWMETRY FIRST Reviewed 10/29/2011 12:00 AM INTRAABDOMINAL PRESSURE TEST Reviewed 11/12/2011 12:00 AM X-RAY URETHRA/BLADDER Reviewed 11/12/2011 12:00 AM X-RAY EXAM SI JOINTS 3/> VWS Reviewed 01/28/2012 12:00 AM MRI LUMBAR SPINE W/O DYE Returned 04/20/2012 12:00 AM THER/PROPH/DIAG INJ SC/IM Reviewed 04/20/2012 12:00 AM Depo-Medrol, Per 120 Mg [facility]#8347-2216-69 Reviewed 07/21/2012 12:00 AM THER/PROPH/DIAG INJ SC/IM Reviewed 07/21/2012 12:00 AM Depo-Medrol, Per 120 Mg [facility]#8939-9094-37 Reviewed 09/01/2012 12:00 AM Drug Screen (Non-Medicare) Reviewed 09/01/2012 12:00 AM DRAIN/INJ JOINT/BURSA W/O US Reviewed 09/01/2012 12:00 AM Kenalog, Per 10 Mg [facility]#3539-1074-34 Reviewed 11/02/2012 12:00 AM Norflex, Up to 60 Mg [facility]#18480-942-28 Reviewed 11/02/2012 12:00 AM INJ TRIGGER POINT 1/2 MUSCL Reviewed 11/02/2012 12:00 AM Bupivicaine, 30 ml [facility]#6322-0091-91 Reviewed 11/02/2012 12:00 AM THER/PROPH/DIAG INJ SC/IM Reviewed 11/02/2012 12:00 AM Norflex, Up to 60 Mg [facility]#00186-500-05 Reviewed 12/27/2012 12:00 AM COMPLETE CBC W/AUTO DIFF WBC Returned 12/27/2012 12:00 AM COMPREHEN METABOLIC PANEL Returned 12/27/2012 12:00 AM ASSAY THYROID STIM HORMONE Returned 12/27/2012 12:00 AM VITAMIN B-12 Returned 12/27/2012 12:00 AM ASSAY OF FERRITIN Returned 12/27/2012 12:00 AM ANTINUCLEAR ANTIBODIES Reviewed 12/27/2012 12:00 AM DNA ANTIBODY [place] Reviewed 12/27/2012 12:00 AM NUCLEAR ANTIGEN ANTIBODY [...] 12:00 AM Decadron, Per 1 Mg NDC# [address]-42 Reviewed 05/31/2013 12:00 AM Depo-Medrol, Per 80 Mg ND#4479-4925-50 Reviewed 05/31/2013 12:00 AM THER/PROPH/DIAG INJ SC/IM Reviewed 06/06/2013 12:00 AM MUSCLE TEST 2 LIMBS Reviewed 06/06/2013 12:00 AM Nerve conduction studies with F-wave Reviewed 08/26/2013 12:00 AM MAMMOGRAM SCREENING Returned 08/26/2013 12:00 AM MAMMOGRAM SCREENING Reviewed 08/30/2013 12:00 AM THER/PROPH/DIAG INJ SC/IM Reviewed 08/30/2013 12:00 AM Decadron, Per 1 Mg NDC# [address]-43 Reviewed 08/30/2013 12:00 AM Depo-Medrol, Per 80 Mg N[facility]#9876-6567-85 Reviewed 11/17/2013 12:00 AM THER/PROPH/DIAG INJ SC/IM Reviewed 11/17/2013 12:00 AM Decadron, Per 1 Mg NDC# [address]-10 Reviewed 11/17/2013 12:00 AM Depo-Medrol 40mg Reviewed 01/06/2014 12:00 AM THER/PROPH/DIAG INJ SC/IM Reviewed 01/06/2014 12:00 AM Decadron, Per 1 Mg [facility]# [address]-61 Reviewed 01/06/2014 12:00 AM Rocephin 1 gram [facility]#2531-8207-31 Reviewed 01/10/2014 12:00 AM OFFICE/OUTPATIENT VISIT EST [...] Per 1 Mg [facility]# [address]-21 Reviewed 10/12/2014 12:00 AM Depo-Medrol 40mg Reviewed [...] CVX Influenza 03/02/2013 sanofi pasteur PMC Fluzone [id number] Intramuscular Left Deltoid 03/02/2013 12/17/2012 141 X 02/28/2014 Merck & Co., Inc. MSD Pneumovax 23 [id number] Intramuscular Left Deltoid 02/28/2014 02/27/2009 33 Influenza 03/23/2015 sanofi pasteur PMC Fluzone Quadrivalent [id number] Intramuscular Right Deltoid 03/23/2015 12/29/2014 140 History [...] SI joint pain Sep 01 2012 3:06PM detention medication use Sep 01 2012 4:05PM Wrist [...] Sep 3 2013 3:35PM SI joint pain Sep 3 2012 [...] Policy Number Policy Group Number Start Date [facility] UMR [id number] N/A [facility] [employer] [facility] [id number] N/A [employer] [place] [id number] Saturday, 2011 [employer] [place] [id number] N/A [employer] [place] [id number] Thursday, 2013 History of Encounters Visit Date Visit Type Provider 08/23/2015 Office visit Chelsea Rodríguez APRN 07/19/2015 Office visit 07/19/2015 Office visit Chelsea Rodríguez APRN 06/21/2015 Office visit Chelsea Rodríguez APRN 05/03/2015 Nurse visit Adela PORTER 04/12/2015 Office visit Adela PORTER 03/23/2015 Office visit Chelsea Rodríguez APRN 03/08/2015 Office visit Adela Cole BLACKJACK DEALER 02/14/2015 Office visit Leonardo Cowan OILER BANDER 02/08/2015 Office visit Adela PITTMANP 02/07/2015 Office visit Leonardo Cowan OILER BANDER 01/11/2015 Office visit Adela PITTMANP 12/28/2014 Office visit Chelsea Rodríguez OILER BANDER 12/14/2014 Nurse visit Adela Cole BLACKJACK DEALER 11/23/2014 Nurse visit Adela Cole BLACKJACK DEALER 10/26/2014 Office visit Adela Cole BLACKJACK DEALER 10/12/2014 Office visit 10/12/2014 Office visit Chelsea Rodríguez OILER BANDER 10/05/2014 Nurse visit Adela Cole BLACKJACK DEALER 09/07/2014 Office visit Adela PITTMANP 08/17/2014 Office visit 08/17/2014 Office visit 08/17/2014 Office visit Chelsea Rodríguez OILER BANDER 08/14/2014 Office visit Adela Cole BLACKJACK DEALER 07/27/2014 Office visit Adela PITTMANP 2014 Office visit Adela PITTMANP 2014 Office visit Mica Lr OILER BANDER 06/28/2014 Nurse visit Adela PITTMANP 05/31/2014 Office visit Adela PITTMANP 05/03/2014 Voided Adela PITTMANP 04/26/2014 Office visit Mica Lr OILER BANDER 04/05/2014 Office visit Adela PITTMANP 03/10/2014 Office visit Adela PITTMANP 02/28/2014 Office visit Mica Lr OILER BANDER 02/24/2014 Office visit Adela PITTMANP 02/06/2014 Office visit Adela PITTMANP 01/10/2014 Nurse visit Suzan Liang MD 01/06/2014 Office visit Mica Lr OILER BANDER 12/15/2013 Office visit Adela PITTMANP 11/17/2013 Office visit Chelsea Rodríguez OILER BANDER 11/17/2013 Office visit Adela PITTMANP 10/20/2013 Office visit Adela PITTMANP 09/22/2013 Office visit Adela PITTMANP 08/30/2013 Office visit Chelsea Rodríguez OILER BANDER 08/26/2013 Office visit Beti Reyna OILER BANDER 07/29/2013 Office visit Adela Cole BLACKJACK DEALER 07/06/2013 Procedures Elmira Campbell MD 07/01/2013 Office visit Adela Cole BLACKJACK DEALER 06/06/2013 Office visit Adela Cole BLACKJACK DEALER 05/31/2013 Office visit Chelsea Rodríguez OILER BANDER 05/11/2013 Office visit Adela Cole BLACKJACK DEALER 03/22/2013 Office visit Adela Cole BLACKJACK DEALER 03/10/2013 Office visit Adela Cole BLACKJACK DEALER 03/04/2013 Office visit Adela Cole BLACKJACK DEALER 03/02/2013 Office visit Odette Elam MD 02/22/2013 Office visit Adela Cole BLACKJACK DEALER 01/28/2013 Office visit Chelsea Rodríguez OILER BANDER 01/25/2013 Office visit Adela Cole BLACKJACK DEALER 12/27/2012 Office visit Adela Cole BLACKJACK DEALER 12/07/2012 Hospital Pablo Croft MD 11/24/2012 Office visit Pablo Croft MD 11/02/2012 Office visit Kylah Wright OILER BANDER 11/02/2012 Office visit Mica Lr OILER BANDER 10/05/2012 [facility] Pablo Croft MD 09/30/2012 Office visit Kylah Wright OILER BANDER 09/01/2012 Office visit Kylah Wright OILER BANDER 07/21/2012 Office visit Odette Elam MD 06/16/2012 Office visit Pablo Croft MD 05/11/2012 [facility] Pablo Croft MD 04/28/2012 Office visit Pablo Croft MD 04/20/2012 Office visit Odette Elam MD 03/29/2012 Office visit Pablo Croft MD 03/16/2012 Hospital Pablo Croft MD 03/09/2012 [facility] Pablo Croft MD 02/24/2012 Hospital Pablo Croft MD 02/11/2012 Office visit Pablo Croft MD 01/28/2012 Office visit Pablo Croft MD 01/19/2012 Office visit Odette Elam MD 12/03/2011 Office visit Reji Bowens MD 11/12/2011 Office visit Alison Antoine OILER BANDER 10/28/2011 Procedures Reji Bowens MD 10/07/2011 Office [...]
--- OUTSIDE RECORDS SUMMARY | 2018-02-14 12:09 | XMS REPORT ---
Author Author Leonardo Cowan [facility] Address [address] [place], [place] [id number] Care Team Providers Care Roll Edge Machine Operator Name Role Phone Leonardo Cowan PCP Allergies and Adverse Reactions Name Reaction [...] Start Date Estimated Completion Date SIG Comments Wellbutrin 100 mg oral tablet 10/12/2014 take 1 tablet (100 mg) by oral route 2 times per day gabapentin 300 mg oral capsule 11/23/2014 03/23/2015 take 1 capsule by oral route 3 times a day for 30 days meloxicam 15 mg oral tablet 11/23/2014 03/23/2015 take 1 tablet (15 mg) by oral route once daily for 30 days alprazolam 0.5 mg oral tablet 12/28/2014 03/28/2015 take 1 tablet by oral route every 6 hours for 30 days Chantix Continuing Month Donn 1 mg oral tablet 12/28/2014 03/22/2015 take 1 tablet (1 mg) with a glass of water by oral route 2 times per day after meals for 12 weeks meloxicam 15 mg oral tablet 12/28/2014 take 1 tablet (15 mg) by oral route once daily for 30 days Lewis 10-325 mg oral tablet 02/08/2015 03/10/2015 take 1 tablet by oral route every 6 hours as needed for 30 days amitriptyline 25 mg oral tablet 02/08/2015 05/09/2015 take 1-2 tablets by oral route Q HS Cymbalta 30 mg oral capsule,delayed release(DR/EC) 02/08/2015 05/09/2015 take 1 capsule (30 mg) by oral [...] tablet by oral route every 12 hours prednisone 20 mg oral tablet 02/07/2015 02/13/2015 [...] tablets,dose pack 08/17/2014 10/05/2014 take as directed Zanaflex 4 mg oral tablet 11/23/2014 01/11/2015 [...] HC BMI BSA BMI Percentile O2 Sat(%) 02/14/2015 3:07:00 PM 115 mmHg 70 mmHg 82 bpm 16 rpm 158 lbs 70 in 22.67 kg/m2 1.88 m2 98 % 02/08/2015 1:01:00 PM 116 mmHg 70 mmHg 73 bpm 16 rpm 98 F 158 lbs 70 in 22.6704 kg/m 1.8814 02/07/2015 5:05:00 PM 128 mmHg 76 mmHg 76 bpm 18 rpm 97.7 F 162.125 lbs 70 in 23.26 kg/m2 1.91 m2 100 % 01/11/2015 3:11:00 PM 124 mmHg 62 mmHg 70 bpm 18 rpm 97.4 F 163 lbs 70 in 23.3878 kg/m 1.9109 12/28/2014 9:30:00 AM 128 mmHg 72 mmHg 84 bpm 18 rpm 99.7 F 167 lbs 70 in 23.96 kg/m2 1.93 m2 100 % 12/14/2014 9:33:00 AM 112 mmHg 64 mmHg 70 bpm 18 rpm 96.6 F 163 lbs 70 in 23.3878 kg/m 1.9109 11/23/2014 10:00:00 AM 116 mmHg 80 mmHg [...] 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 [...] and screen Returned 10/29/2011 12:00 AM CYSTOMETROGRAM W/JAVA ORACLE DEVELOPER&UP Reviewed 10/29/2011 12:00 AM ELECTRO-UROFLOWMETRY FIRST Reviewed 10/29/2011 12:00 AM INTRAABDOMINAL PRESSURE TEST Reviewed 11/12/2011 12:00 AM X-RAY URETHRA/BLADDER Reviewed 11/12/2011 12:00 AM X-RAY EXAM SI JOINTS 3/> VWS Reviewed 01/28/2012 12:00 AM MRI LUMBAR SPINE W/O DYE Returned 04/20/2012 12:00 AM THER/PROPH/DIAG INJ SC/IM Reviewed 04/20/2012 12:00 AM Depo-Medrol, Per 120 Mg [facility]#5029-0800-77 Reviewed 07/21/2012 12:00 AM THER/PROPH/DIAG INJ SC/IM Reviewed 07/21/2012 12:00 AM Depo-Medrol, Per 120 Mg [facility]#6089-6393-18 Reviewed 09/01/2012 12:00 AM Drug Screen (Non-Medicare) Reviewed 09/01/2012 12:00 AM Kenalog, Per 10 Mg [facility]#7933-3679-66 Reviewed 11/02/2012 12:00 AM Norflex, Up to 60 Mg [facility]#02736-631-90 Reviewed 11/02/2012 12:00 AM INJ TRIGGER POINT 1/2 MUSCL Reviewed 11/02/2012 12:00 AM Bupivicaine, 30 ml [facility]#7173-3406-93 Reviewed 11/02/2012 12:00 AM THER/PROPH/DIAG INJ SC/IM Reviewed 11/02/2012 12:00 AM Norflex, Up to 60 Mg [facility]#50046-354-14 Reviewed 12/27/2012 12:00 AM COMPLETE CBC W/AUTO DIFF WBC Returned 12/27/2012 12:00 AM COMPREHEN METABOLIC PANEL Returned 12/27/2012 12:00 AM ASSAY THYROID STIM HORMONE Returned 12/27/2012 12:00 AM VITAMIN B-12 Returned 12/27/2012 12:00 AM ASSAY OF FERRITIN Returned 12/27/2012 12:00 AM ANTINUCLEAR ANTIBODIES Reviewed 12/27/2012 12:00 AM DNA ANTIBODY [place] Reviewed 12/27/2012 12:00 AM NUCLEAR ANTIGEN ANTIBODY [...] 12:00 AM Decadron, Per 1 Mg [place]# [address]-96 Reviewed 05/31/2013 12:00 AM Depo-Medrol, Per 80 Mg [facility]#9007-3642-69 Reviewed 05/31/2013 12:00 AM THER/PROPH/DIAG INJ SC/IM Reviewed 06/06/2013 12:00 AM MUSCLE TEST 2 LIMBS Reviewed 06/06/2013 12:00 AM Nerve conduction studies with F-wave Reviewed 08/26/2013 12:00 AM MAMMOGRAM SCREENING Returned 08/26/2013 12:00 AM MAMMOGRAM SCREENING Reviewed 08/30/2013 12:00 AM THER/PROPH/DIAG INJ SC/IM Reviewed 08/30/2013 12:00 AM Decadron, Per 1 Mg [facility]# [address]-55 Reviewed 08/30/2013 12:00 AM Depo-Medrol, Per 80 Mg [facility]#9494-1869-30 Reviewed 11/17/2013 12:00 AM THER/PROPH/DIAG INJ SC/IM Reviewed 11/17/2013 12:00 AM Decadron, Per 1 Mg [facility]# [address]-71 Reviewed 11/17/2013 12:00 AM Depo-Medrol 40mg Reviewed 01/06/2014 12:00 AM THER/PROPH/DIAG INJ SC/IM Reviewed 01/06/2014 12:00 AM Decadron, Per 1 Mg [facility]# [address]-92 Reviewed 01/06/2014 12:00 AM Rocephin 1 gram [facility]#9745-9051-92 Reviewed 01/10/2014 12:00 AM OFFICE/OUTPATIENT VISIT EST [...] Per 1 Mg [facility]# [address]-30 Reviewed 10/12/2014 12:00 AM Depo-Medrol 40mg Reviewed [...] 4.31 HGB 13.0 g/dLHCT 39.10 %MCV 91.0 fLH 30.20 pgMCHC 33.20 g/dLRDW CV 12.70 %MPV [...] CVX Influenza 03/02/2013 sanofi pasteur PMC Fluzone [id number] Intramuscular Left Deltoid 03/02/2013 12/17/2012 141 Pneumococcal 02/28/2014 Merck & Co., Inc[employer] MSD Pneumovax 23 [id number] Intramuscular Left Deltoid 02/28/2014 02/27/2009 33 History of Past Illness Name Date of Onset Comments Anxiety Arthritis unspecified Diverticulitis Of Colon Sacroiliitis Abnormal Uterine Bleeding 06/26/2011 Endometrial hyperplasia, unspecified 06/26/2011 Pelvic Pain 06/26/2011 Family history of breast cancer 06/26/2011 Kidney Calculus Constipation Depression and anxiety Back pain Allergic rhinitis 11/17/2013 Depression 08/17/2014 Anxiety 08/17/2014 [...] Sep 19 2011 3:58PM SI joint pain Sep 2011 [...] SI joint pain Sep 01 2012 3:06PM group home medication use Sep 01 2012 4:05PM [...] 2013 9:09AM Pain in joint; Right Hip Feb 7 2013 9:09AM Lumbosacral Radiculopathy Jul 06 2013 [...] 2015 5:07PM Tendonitis Feb 14 2015 3:08PM Payers Insurance Name Company Name Plan Name Plan Number Policy Number Policy Group Number Start Date [facility] UMR [id number] N/A [facility] [employer] [facility] [id number] N/A [employer] [place] [id number] Saturday, 2011 [employer] [place] [id number] N/A [employer] [place] [id number] Thursday, 2013 History of Encounters Visit Date Visit Type Provider 02/14/2015 Office visit Leonardo Cowan APRN 02/08/2015 Office visit Adela PORTER 02/07/2015 Office visit Leonardo Cowan APRN 01/11/2015 Office visit Adela PORTER 12/28/2014 Office visit Chelsea Rodríguez APRN 12/14/2014 Nurse visit Adela PORTER 11/23/2014 Nurse visit Adela PORTER 10/26/2014 Office visit Adela PORTER 10/12/2014 Office visit Chelsea Rodríguez APRN 10/05/2014 Nurse visit Adela PORTER 09/07/2014 Office visit Adela PORTER 08/17/2014 Office visit Chelsea Rodríguez APRN 08/14/2014 Office visit Adela PORTER 07/27/2014 Office visit Adela PORTER 2014 Office visit Adela PORTER 2014 Office visit Mica Serna Be MAT INSPECTOR 06/28/2014 Nurse visit Adela JohnsonMarcus Douglas SCHOOL PSYCHOLOGIST 05/31/2014 Office visit Adela JohnsonMarcus Douglas SCHOOL PSYCHOLOGIST 05/03/2014 Voided Adela Cole SCHOOL PSYCHOLOGIST 04/26/2014 Office visit Mica Lr MAT INSPECTOR 04/05/2014 Office visit Adela Manjit Douglas SCHOOL PSYCHOLOGIST 03/10/2014 Office visit Adela JohnsonMarcus Douglas SCHOOL PSYCHOLOGIST 02/28/2014 Office visit Mica NMarcus Lr MAT INSPECTOR 02/24/2014 Office visit Adela Cole SCHOOL PSYCHOLOGIST 02/06/2014 Office visit Adela M. Douglas SCHOOL PSYCHOLOGIST 01/10/2014 Nurse visit Suzan Liang MD 01/06/2014 Office visit Micawillian Lr MAT INSPECTOR 12/15/2013 Office visit Adela Saravia Douglas SCHOOL PSYCHOLOGIST 11/17/2013 Office visit Chelsea Marcos MAT INSPECTOR 11/17/2013 Office visit Adela Cole SCHOOL PSYCHOLOGIST 10/20/2013 Office visit Adela Cole SCHOOL PSYCHOLOGIST 09/22/2013 Office visit Adela Cole SCHOOL PSYCHOLOGIST 08/30/2013 Office visit Chelsea Rodríguez MAT INSPECTOR 08/26/2013 Office visit Beti Reyna MAT INSPECTOR 07/29/2013 Office visit Adela Cole SCHOOL PSYCHOLOGIST 07/06/2013 Procedures Elmira Campbell MD 07/01/2013 Office visit Adela Cole SCHOOL PSYCHOLOGIST 06/06/2013 Office visit Adela Cole SCHOOL PSYCHOLOGIST 05/31/2013 Office visit Chelsea Rodríguez MAT INSPECTOR 05/11/2013 Office visit Adela Cole SCHOOL PSYCHOLOGIST 03/22/2013 Office visit Adela Cole SCHOOL PSYCHOLOGIST 03/10/2013 Office visit Adela Cole SCHOOL PSYCHOLOGIST 03/04/2013 Office visit Adela Cole SCHOOL PSYCHOLOGIST 03/02/2013 Office visit Odette Elam MD 02/22/2013 Office visit Adela Cole SCHOOL PSYCHOLOGIST 01/28/2013 Office visit Chelsea Rodríguez MAT INSPECTOR 01/25/2013 Office visit Adela Cole SCHOOL PSYCHOLOGIST 12/27/2012 Office visit Adela PITTMANP 12/07/2012 [facility] Pablo Croft MD 11/24/2012 Office visit Pablo Croft MD 11/02/2012 Office visit Kylah Wright MAT INSPECTOR 11/02/2012 Office visit Mica AgarwalMarcus Lr MAT INSPECTOR 10/05/2012 [facility] Pablo Croft MD 09/30/2012 Office visit Kylah Wright MAT INSPECTOR 09/01/2012 Office visit Kylah Wright MAT INSPECTOR 07/21/2012 Office visit Odette Elam MD 06/16/2012 Office visit Pablo Croft MD 05/11/2012 [facility] Pablo Croft MD 04/28/2012 Office visit Pablo Croft MD 04/20/2012 Office visit Odette Elam MD 03/29/2012 Office visit Pablo Croft MD 03/16/2012 [facility] Pablo Croft MD 03/09/2012 [facility] Pablo Croft MD 02/24/2012 [facility] Pablo Croft MD 02/11/2012 Office visit Pablo Croft MD 01/28/2012 Office visit Pablo Croft MD 01/19/2012 Office visit Odette Elam MD 12/03/2011 Office visit Reji Bowens MD 11/12/2011 Office visit Alison Antoine MAT INSPECTOR 10/28/2011 Procedures Reji Bowens MD 10/07/2011 Office visit Odette Elam MD 09/04/2011 Surgery Reji Bowens MD 08/15/2011 Surgery Reji Bowens MD 07/22/2011 [facility] Naveen Aguilar MD 07/22/2011 [facility] Reji Bowens MD 07/14/2011 Surgery Reji Bowens MD 06/26/2011 Office visit Odette Elam MD 06/24/2011 Office visit Reji Bowens MD 12/04/2010 [facility] Asha Church MD
--- OUTSIDE RECORDS SUMMARY | 2018-02-14 12:11 | XMS REPORT ---
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 Procedures Date Ordered Description Order Status 03/23/2015 12:00 AM FLU VACC 4 ROB 3 YRS PLUS IM Reviewed 03/23/2015 12:00 AM THER/PROPH/DIAG INJ SC/IM Reviewed 04/12/2015 12:00 AM INJECT SPINE LUMBAR/SACRAL Returned 05/03/2015 12:00 AM OFFICE/OUTPATIENT VISIT EST Reviewed 06/24/2011 12:00 AM ASSAY THYROID STIM [...] and screen Returned 10/29/2011 12:00 AM CYSTOMETROGRAM W/MICROBIOLOGICAL LABORATORY TECHNICIAN&UP Reviewed 10/29/2011 12:00 AM ELECTRO-UROFLOWMETRY FIRST Reviewed 10/29/2011 12:00 AM INTRAABDOMINAL PRESSURE TEST Reviewed 11/12/2011 12:00 AM X-RAY URETHRA/BLADDER Reviewed 11/12/2011 12:00 AM X-RAY EXAM SI JOINTS 3/> VWS Reviewed 01/28/2012 12:00 AM MRI LUMBAR SPINE W/O DYE Returned 04/20/2012 12:00 AM THER/PROPH/DIAG INJ SC/IM Reviewed 04/20/2012 12:00 AM Depo-Medrol, Per 120 Mg [facility]#9034-1696-25 Reviewed 07/21/2012 12:00 AM THER/PROPH/DIAG INJ SC/IM Reviewed 07/21/2012 12:00 AM Depo-Medrol, Per 120 Mg [facility]#5671-3400-03 Reviewed 09/01/2012 12:00 AM Drug Screen (Non-Medicare) Reviewed 09/01/2012 12:00 AM Kenalog, Per 10 Mg [facility]#9925-2796-41 Reviewed 11/02/2012 12:00 AM Norflex, Up to 60 Mg [facility]#60678-813-51 Reviewed 11/02/2012 12:00 AM INJ TRIGGER POINT 1/2 MUSCL Reviewed 11/02/2012 12:00 AM Bupivicaine, 30 ml [facility]#1612-7164-34 Reviewed 11/02/2012 12:00 AM THER/PROPH/DIAG INJ SC/IM Reviewed 11/02/2012 12:00 AM Norflex, Up to 60 Mg [facility]#69586-507-66 Reviewed 12/27/2012 12:00 AM COMPLETE CBC W/AUTO DIFF WBC Returned 12/27/2012 12:00 AM COMPREHEN METABOLIC PANEL Returned 12/27/2012 12:00 AM ASSAY THYROID STIM HORMONE Returned 12/27/2012 12:00 AM VITAMIN B-12 Returned 12/27/2012 12:00 AM ASSAY OF FERRITIN Returned 12/27/2012 12:00 AM ANTINUCLEAR ANTIBODIES Reviewed 12/27/2012 12:00 AM DNA ANTIBODY [place] Reviewed 12/27/2012 12:00 AM NUCLEAR ANTIGEN [...] 1 Mg [facility]# [address]-06 Reviewed 05/31/2013 12:00 AM Depo-Medrol, Per 80 Mg [facility]#5567-1993-06 Reviewed 05/31/2013 12:00 AM THER/PROPH/DIAG INJ SC/IM Reviewed 06/06/2013 12:00 AM MUSCLE TEST 2 LIMBS Reviewed 06/06/2013 12:00 AM Nerve conduction studies with F-wave Reviewed 08/26/2013 12:00 AM MAMMOGRAM SCREENING Returned 08/26/2013 12:00 AM MAMMOGRAM SCREENING Reviewed 08/30/2013 12:00 AM THER/PROPH/DIAG INJ SC/IM Reviewed 08/30/2013 12:00 AM Decadron, Per 1 Mg [facility]# [address]-14 Reviewed 08/30/2013 12:00 AM Depo-Medrol, Per 80 Mg [facility]#7363-5006-82 Reviewed 11/17/2013 12:00 AM THER/PROPH/DIAG INJ SC/IM Reviewed 11/17/2013 12:00 AM Decadron, Per 1 Mg [facility]# [address]-28 Reviewed 11/17/2013 12:00 AM Depo-Medrol 40mg Reviewed 01/06/2014 12:00 AM THER/PROPH/DIAG INJ SC/IM Reviewed 01/06/2014 12:00 AM Decadron, Per 1 Mg [facility]# [address]-80 Reviewed 01/06/2014 12:00 AM Rocephin 1 gram [facility]#3430-3233-70 Reviewed 01/10/2014 12:00 AM OFFICE/OUTPATIENT VISIT EST [...] 1 Mg [facility]# [address]-51 Reviewed 10/12/2014 12:00 AM Depo-Medrol 40mg Reviewed [...] CVX Influenza 03/02/2013 sanofi pasteur PMC Fluzone [id number] Intramuscular Left Deltoid 03/02/2013 12/17/2012 141 Pneumococcal 02/28/2014 Merck & Co., Inc. 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 4:05PM Wrist [...] Policy Number Policy Group Number Start Date [facility] UMR [id number] N/A [employer] [facility] [id number] N/A [employer] [place] [id number] Saturday, 2011 [employer] [place] [id number] N/A [employer] [place] [id number] Thursday, 2013 History of Encounters Visit Date Visit Type Provider 05/03/2015 Nurse visit Adela PORTER 04/12/2015 Office visit Adela PORTER 03/23/2015 Office visit Chelsea Rodríguez FLAME HARDENING MACHINE SETTER 03/08/2015 Office visit Adela PITTMANP 02/14/2015 Office visit Leonardo Cowan FLAME HARDENING MACHINE SETTER 02/08/2015 Office visit Adela PITTMANP 02/07/2015 Office visit Leonardo Cowan FLAME HARDENING MACHINE SETTER 01/11/2015 Office visit Adela PITTMANP 12/28/2014 Office visit Chelsea Rodríguez FLAME HARDENING MACHINE SETTER 12/14/2014 Nurse visit Adela PORTER 11/23/2014 Nurse visit Adela PORTER 10/26/2014 Office visit Adela PITTMANP 10/12/2014 Office visit Chelsea Rodríguez FLAME HARDENING MACHINE SETTER 10/05/2014 Nurse visit Adela PITTMANP 09/07/2014 Office visit Adela PORTER 08/17/2014 Office visit Chelsea Rodríguez FLAME HARDENING MACHINE SETTER 08/14/2014 Office visit Adela PITTMANP 07/27/2014 Office visit Adela PITTMANP 2014 Office visit Adela PORTER 2014 Office visit Mica Lr APRN 06/28/2014 Nurse visit Adela PORTER 05/31/2014 Office visit Adela PORTER 05/03/2014 Voided Adela PORTER 04/26/2014 Office visit Mica Lr APRN 04/05/2014 Office visit Adela PORTER 03/10/2014 Office visit Adela PORTER 02/28/2014 Office visit Mica Lr APRN 02/24/2014 Office visit Adela PORTER 02/06/2014 Office visit Adela PORTER 01/10/2014 Nurse visit Suzan Liang MD 01/06/2014 Office visit Mica Lr FLAME HARDENING MACHINE SETTER 12/15/2013 Office visit Adela MMarcus Cole JOINT MACHINE OPERATOR 11/17/2013 Office visit Chelsea Rodríguez FLAME HARDENING MACHINE SETTER 11/17/2013 Office visit Adela Cole JOINT MACHINE OPERATOR 10/20/2013 Office visit Adela AlexMarcus Cole JOINT MACHINE OPERATOR 09/22/2013 Office visit Adela M. Douglas JOINT MACHINE OPERATOR 08/30/2013 Office visit Chelsea Rodríguez FLAME HARDENING MACHINE SETTER 08/26/2013 Office visit Beti Reyna FLAME HARDENING MACHINE SETTER 07/29/2013 Office visit Adela Cloe JOINT MACHINE OPERATOR 07/06/2013 [facility] Elmira Campbell MD 07/01/2013 Office visit Adela M. Douglas JOINT MACHINE OPERATOR 06/06/2013 Office visit Adela M. Douglas JOINT MACHINE OPERATOR 05/31/2013 Office visit Chelsea Rodríguez FLAME HARDENING MACHINE SETTER 05/11/2013 Office visit Adela Cole JOINT MACHINE OPERATOR 03/22/2013 Office visit Adela Cole JOINT MACHINE OPERATOR 03/10/2013 Office visit Adela Cole JOINT MACHINE OPERATOR 03/04/2013 Office visit Adela Cole JOINT MACHINE OPERATOR 03/02/2013 Office visit Odette Elam MD 02/22/2013 Office visit Adela Cole JOINT MACHINE OPERATOR 01/28/2013 Office visit Chelsea Rodríguez FLAME HARDENING MACHINE SETTER 01/25/2013 Office visit Adela Cole JOINT MACHINE OPERATOR 12/27/2012 Office visit Adela Cole JOINT MACHINE OPERATOR 12/07/2012 [facility] Pablo Croft MD 11/24/2012 Office visit Pablo Croft MD 11/02/2012 Office visit Kylah Wright FLAME HARDENING MACHINE SETTER 11/02/2012 Office visit Mica Lr FLAME HARDENING MACHINE SETTER 10/05/2012 [facility] Pablo Croft MD 09/30/2012 Office visit Kylah Wright FLAME HARDENING MACHINE SETTER 09/01/2012 Office visit Kylah Wright FLAME HARDENING MACHINE SETTER 07/21/2012 Office visit Odette Elam MD 06/16/2012 Office visit Pablo Croft MD 05/11/2012 Hospital Pablo Croft MD 04/28/2012 Office visit Pablo Croft MD 04/20/2012 Office visit Odette Elam MD 03/29/2012 Office visit Pablo Croft MD 03/16/2012 [facility] Pablo Croft MD 03/09/2012 [facility] Pablo Croft MD 02/24/2012 [facility] Pablo Croft MD 02/11/2012 Office visit Pablo Croft MD 01/28/2012 Office visit Pablo Croft MD 01/19/2012 Office visit Odette Elam MD 12/03/2011 Office visit Reji Bowens MD 11/12/2011 Office visit Alison Antoine APRN 10/28/2011 Procedures Reji Bowens MD 10/07/2011 Office visit Odette Elam MD 09/04/2011 Surgery Reji Bowens MD 08/15/2011 Surgery Reji Bowens MD 07/22/2011 [facility] Naveen Aguilar MD 07/22/2011 [facility] Reji Bowens MD 07/14/2011 Surgery Reji Bowens MD 06/26/2011 Office visit Odette Elam MD 06/24/2011 Office visit Reji Bowens MD 12/04/2010 [facility] Asha Church MD
--- OUTSIDE RECORDS SUMMARY | 2018-02-14 12:13 | XMS REPORT ---
Author Author Jeremy West Organization [facility] Address [address] [place], [place] [address] Care Team Providers Care Court Crier Name Role Phone Jeremy West PCP Chelsea Rodríguez PreferredProvider Unavailable Allergies and Adverse [...] take 1 tablet by oral route daily temazepam 15 mg oral capsule take 1 capsule (15 mg) by oral [...] then Take 1 tab x 2 days. 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 of [...] 11/27/2015 12:00 AM Decadron, Per 1 Mg [facility]# [address]-56 Reviewed 11/27/2015 12:00 AM Depo-Medrol 40mg Reviewed [...] Reviewed 04/24/2016 12:00 AM Toradol 60 Mg [facility]#3224-5178-30 Reviewed 06/11/2016 12:00 AM Consult/Referral Reviewed 06/11/2016 2:41 PM URINALYSIS AUTO W/O SCOPE Reviewed 06/11/2016 12:00 AM URINE CULTURE/COLONY COUNT Reviewed 06/13/2016 12:00 AM Splint, prefabricated, wrist or ankle Reviewed 07/31/2016 12:00 AM LIPID PANEL Reviewed 07/31/2016 12:00 AM MAMMOGRAPHY SCREENING, DIGITAL Reviewed 10/29/2011 12:00 AM CYSTOMETROGRAM W/CASH GRAIN GROWER&UP Reviewed 10/29/2011 12:00 AM ELECTRO-UROFLOWMETRY FIRST Reviewed 10/29/2011 12:00 AM INTRAABDOMINAL PRESSURE TEST Reviewed 11/12/2011 12:00 AM X-RAY URETHRA/BLADDER Reviewed 11/12/2011 12:00 AM X-RAY EXAM SI JOINTS 3/> VWS Reviewed 01/28/2012 12:00 AM MRI LUMBAR SPINE W/O DYE Reviewed 04/20/2012 12:00 AM THER/PROPH/DIAG INJ SC/IM Reviewed 04/20/2012 12:00 AM Depo-Medrol, Per 120 Mg [facility]#1896-6977-92 Reviewed 07/21/2012 12:00 AM THER/PROPH/DIAG INJ SC/IM Reviewed 07/21/2012 12:00 AM Depo-Medrol, Per 120 Mg [facility]#8939-9412-56 Reviewed 09/01/2012 12:00 AM Drug Screen (Non-Medicare) Reviewed 09/01/2012 12:00 AM DRAIN/INJ JOINT/BURSA W/O US Reviewed 09/01/2012 12:00 AM Kenalog, Per 10 Mg [facility]#6497-4141-57 Reviewed 11/02/2012 12:00 AM Norflex, Up to 60 Mg [facility]#82577-203-58 Reviewed 11/02/2012 12:00 AM INJ TRIGGER POINT 1/2 MUSCL Reviewed 11/02/2012 12:00 AM Bupivicaine, 30 ml [facility]#5498-7545-06 Reviewed 11/02/2012 12:00 AM THER/PROPH/DIAG INJ SC/IM Reviewed 11/02/2012 12:00 AM Norflex, Up to 60 Mg [facility]#41354-655-47 Reviewed 12/27/2012 12:00 AM COMPLETE CBC W/AUTO DIFF WBC Reviewed 12/27/2012 12:00 AM COMPREHEN METABOLIC PANEL Reviewed 12/27/2012 12:00 AM ASSAY THYROID STIM HORMONE Reviewed 12/27/2012 12:00 AM VITAMIN B-12 Reviewed 12/27/2012 12:00 AM ASSAY OF FERRITIN Reviewed 12/27/2012 12:00 AM ANTINUCLEAR ANTIBODIES Reviewed 12/27/2012 12:00 AM DNA ANTIBODY [place] Reviewed 12/27/2012 12:00 AM NUCLEAR ANTIGEN ANTIBODY [...] 12:00 AM Decadron, Per 1 Mg ND# [address]-46 Reviewed 05/31/2013 12:00 AM Depo-Medrol, Per 80 Mg [facility]#6512-2065-83 Reviewed 05/31/2013 12:00 AM THER/PROPH/DIAG INJ SC/IM Reviewed 06/06/2013 12:00 AM MUSCLE TEST 2 LIMBS Reviewed 06/06/2013 12:00 AM Nerve conduction studies with F-wave Reviewed 08/26/2013 12:00 AM MAMMOGRAM SCREENING Reviewed 08/26/2013 12:00 AM MAMMOGRAM SCREENING Reviewed 08/30/2013 12:00 AM THER/PROPH/DIAG INJ SC/IM Reviewed 08/30/2013 12:00 AM Decadron, Per 1 Mg ND# [address]-50 Reviewed 08/30/2013 12:00 AM Depo-Medrol, Per 80 Mg [facility]#4392-2591-84 Reviewed 11/17/2013 12:00 AM THER/PROPH/DIAG INJ SC/IM Reviewed 11/17/2013 12:00 AM Decadron, Per 1 Mg [facility]# [address]-38 Reviewed 11/17/2013 12:00 AM Depo-Medrol 40mg Reviewed 01/06/2014 12:00 AM THER/PROPH/DIAG INJ SC/IM Reviewed 01/06/2014 12:00 AM Decadron, Per 1 Mg [facility]# [address]-97 Reviewed 01/06/2014 12:00 AM Rocephin 1 gram [facility]#1309-4203-21 Reviewed 01/10/2014 12:00 AM OFFICE/OUTPATIENT VISIT EST [...] 10/12/2014 12:00 AM Decadron, Per 1 Mg [facility]# [address]-26 Reviewed 10/12/2014 12:00 AM Depo-Medrol 40mg Reviewed 11/23/2014 12:00 AM OFFICE/OUTPATIENT VISIT EST Reviewed 12/14/2014 12:00 AM OFFICE/OUTPATIENT VISIT EST Reviewed Results Summary Date and Description Results 06/23/2011 2:25 PM FSH 7.70 mIU/mLTSH 0.890 uIU/mL 07/14/2011 12:10 PM WBC 11.2 RBC 4.78 HGB 14.60 g/dLHCT 44.70 %MCV 94.0 fLMCH 30.50 pgHC 32.70 g/dLRDW SD 45 RDW CV 13.10 [...] 4.98 HGB 15.20 g/dLHCT 45.50 %MCV 91.0 [facility] 30.50 pgHC 33.40 g/dLRDW SD 42 RDW CV 12.70 [...] CVX Influenza 03/02/2013 sanofi pasteur PMC Fluzone [id number] Intramuscular Left Deltoid 03/02/2013 12/17/2012 141 X 02/28/2014 Merck & Co., Inc. MSD Pneumovax 23 [id number] Intramuscular Left Deltoid 02/28/2014 02/27/2009 33 Influenza 03/23/2015 sanofi pasteur PMC Fluzone Quadrivalent [id number] Intramuscular Right Deltoid 03/23/2015 12/29/2014 140 Influenza [...] Sep 5 2011 9:12AM Radiculopathy, lumbosacral Sep 2011 3:58PM [...] joint pain Sep 01 2012 3:06PM intermediate card tender medication use Sep 01 2012 4:05PM Wrist [...] Number Start Date [employer] [place] [id number] N/A [employer] [place] [id number] Saturday, 2011 [employer] [place] [id number] N/A [employer] [place] [id number] Thursday, 2013 UMR UMR [id number] N/A [employer] [id number] N/A [employer] [place] [id number] N/A [facility] [employer] [id number] N/A [employer] [id number] N/A [employer] [facility] [employer] [id number] DOI [id number] May [employer] [place] [id number] N/A History of Encounters Visit Date Visit Type Provider 02/10/2017 Office visit Jeremy West DO 01/31/2017 Office visit Dimitri Beebe OVERHAULER BUS TRUCK 11/20/2016 Office visit Chelsea Rodríguez MECHANICAL CAD DRAFTER 08/29/2016 Office visit Chelsea Rodríguez MECHANICAL CAD DRAFTER 07/31/2016 Office visit Chelsea Rodríguez MECHANICAL CAD DRAFTER 06/11/2016 Office visit Chelsea Rodríguez MECHANICAL CAD DRAFTER 06/05/2016 Office visit Leonardo Cowan MECHANICAL CAD DRAFTER 05/14/2016 Office visit Chelsea Rodríguez MECHANICAL CAD DRAFTER 05/05/2016 Office visit Leonardo Cowan MECHANICAL CAD DRAFTER 04/24/2016 Office visit Chelsea Rodríguez MECHANICAL CAD DRAFTER 04/07/2016 Office visit Chelsea Rodríguez MECHANICAL CAD DRAFTER 03/04/2016 Office visit Chelsea Rodríguez MECHANICAL CAD DRAFTER 01/14/2016 Office visit Chelsea Rodríguez MECHANICAL CAD DRAFTER 01/09/2016 Office visit Leonardo Cowan APRN 01/04/2016 Office visit Leonardo Cowan APRN 11/27/2015 Office visit Chelsea Rodríguez MECHANICAL CAD DRAFTER 08/23/2015 Office visit Chelsea Rodríguez APRN 07/19/2015 Office visit 07/19/2015 Office visit Chelsea Rodríguez APRN 06/21/2015 Office visit Chelsea Rodríguez APRN 05/03/2015 Nurse visit Adela PORTER 04/12/2015 Office visit Adela PITTMANP 03/23/2015 Office visit Chelsea Rodríguez MECHANICAL CAD DRAFTER 03/08/2015 Office visit Adela Cole PREPARATION DEPARTMENT SUPERVISOR 02/14/2015 Office visit Leonardo Cowan MECHANICAL CAD DRAFTER 02/08/2015 Office visit Adela PITTMANP 02/07/2015 Office visit Leonardo Cowan MECHANICAL CAD DRAFTER 01/11/2015 Office visit Adela Cole PREPARATION DEPARTMENT SUPERVISOR 12/28/2014 Office visit Chelsea Rordíguez MECHANICAL CAD DRAFTER 12/14/2014 Nurse visit Adela Cole PREPARATION DEPARTMENT SUPERVISOR 11/23/2014 Nurse visit Adela Cole PREPARATION DEPARTMENT SUPERVISOR 10/26/2014 Office visit Adela Cole PREPARATION DEPARTMENT SUPERVISOR 10/12/2014 Office visit 10/12/2014 Office visit Chelsea Rodríguez MECHANICAL CAD DRAFTER 10/05/2014 Nurse visit Adela Cole PREPARATION DEPARTMENT SUPERVISOR 09/07/2014 Office visit Adela Cole PREPARATION DEPARTMENT SUPERVISOR 08/17/2014 Office visit 08/17/2014 Office visit 08/17/2014 Office visit Chelsea Rodríguez MECHANICAL CAD DRAFTER 08/14/2014 Office visit Adela PITTMANP 07/27/2014 Office visit Adela PITTMANP 2014 Office visit Adela PITTMANP 2014 Office visit Mica Lr MECHANICAL CAD DRAFTER 06/28/2014 Nurse visit Adela PITTMANP 05/31/2014 Office visit Adela PITTMANP 05/03/2014 Voided Adela PITTMANP 04/26/2014 Office visit Mica Lr MECHANICAL CAD DRAFTER 04/05/2014 Office visit Adela PITTMANP 03/10/2014 Office visit Adela PITTMANP 02/28/2014 Office visit Mica Lr MECHANICAL CAD DRAFTER 02/24/2014 Office visit Adela PITTMANP 02/06/2014 Office visit Adela PITTMANP 01/10/2014 Nurse visit Suzan Liang MD 01/06/2014 Office visit Mica Lr MECHANICAL CAD DRAFTER 12/15/2013 Office visit Adela PITTMANP 11/17/2013 Office visit Chelsea Rodríguez MECHANICAL CAD DRAFTER 11/17/2013 Office visit Adela PITTMANP 10/20/2013 Office visit Adela PITTMANP 09/22/2013 Office visit Adela PITTMANP 08/30/2013 Office visit Chelsea Rodríguez MECHANICAL CAD DRAFTER 08/26/2013 Office visit Beti Reyna MECHANICAL CAD DRAFTER 07/29/2013 Office visit Adela Cole PREPARATION DEPARTMENT SUPERVISOR 07/06/2013 Procedures Elmira Cmapbell MD 07/01/2013 Office visit Adela Cole PREPARATION DEPARTMENT SUPERVISOR 06/06/2013 Office visit Adela Cole PREPARATION DEPARTMENT SUPERVISOR 05/31/2013 Office visit Chelsea Marcos MECHANICAL CAD DRAFTER 05/11/2013 Office visit Adela Cole PREPARATION DEPARTMENT SUPERVISOR 03/22/2013 Office visit Adela Cole PREPARATION DEPARTMENT SUPERVISOR 03/10/2013 Office visit Adela Cole PREPARATION DEPARTMENT SUPERVISOR 03/04/2013 Office visit Adela Cole PREPARATION DEPARTMENT SUPERVISOR 03/02/2013 Office visit Odette Elam MD 02/22/2013 Office visit Adela Cole PREPARATION DEPARTMENT SUPERVISOR 01/28/2013 Office visit Chelsea Rodríguez MECHANICAL CAD DRAFTER 01/25/2013 Office visit Adela Cole PREPARATION DEPARTMENT SUPERVISOR 12/27/2012 Office visit Adela Cole PREPARATION DEPARTMENT SUPERVISOR 12/07/2012 Hospital Pablo Croft MD 11/24/2012 Office visit Pablo Croft MD 11/02/2012 Office visit Kylah Wright MECHANICAL CAD DRAFTER 11/02/2012 Office visit Mica Lr MECHANICAL CAD DRAFTER 10/05/2012 Hospital Pablo Croft MD 09/30/2012 Office visit Kylah Wright MECHANICAL CAD DRAFTER 09/01/2012 Office visit Kylah Wright MECHANICAL CAD DRAFTER 07/21/2012 Office visit Odette Elam MD 06/16/2012 Office visit Palbo Croft MD 05/11/2012 Hospital Pablo Croft MD [...] Bowens MD 11/12/2011 Office visit Alison Antoine MECHANICAL CAD DRAFTER 10/28/2011 Procedures Reji Bowens MD 10/07/2011 Office visit Odette Elam MD 09/04/2011 Surgery Reji Bowens MD 08/15/2011 Surgery Reji Bowens MD 07/22/2011 [facility] Naveen Aguilar MD 07/22/2011 [facility] Reji Bowens MD 07/14/2011 Surgery Reji Bowens MD 06/26/2011 Office visit Odette Elam MD 06/24/2011 Office visit Reji Bowens MD 12/04/2010 [facility] Asha Church MD
--- OUTSIDE RECORDS SUMMARY | 2018-02-14 12:15 | XMS REPORT ---
Author Author Leonardo Cowan [facility] Address [address] [place], [place] [id number] Care Team Providers Care Academic Support Assistant Name Role Phone Leonardo Cowan PCP Allergies and Adverse Reactions Name Reaction Notes Keflex yeast infection does not want to take due to causes yeast infection Plan of Treatment Planned Activity Comments Planned Date Planned Time Plan/Goal CARDIOVASCULAR STRESS TEST 06/22/2015 12:00 AM ELECTROCARDIOGRAM COMPLETE 06/21/2015 12:00 AM HERPES SIMPLEX 1 AG IF 01/09/2016 12:00 AM METABOLIC PANEL TOTAL CA 10/12/2014 [...] each nostril by intranasal route once daily Bactrim DS 800-160 mg oral tablet 01/04/2016 01/11/2016 take 1 tablet by oral route 2 times per day for 7 days Name Start Date Expiration [...] then Take 1 tab x 2 days. 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# [address]-24 Reviewed 11/27/2015 12:00 AM Depo-Medrol 40mg Reviewed 06/24/2011 12:00 AM ASSAY THYROID STIM HORMONE Returned 06/24/2011 12:00 AM ASSAY OF GONADOTROPIN (FSH) Returned 06/24/2011 12:00 AM CYTOPATH TBS C/V MANUAL Returned 06/24/2011 12:00 AM SPECIMEN HANDLING OFFICE-LAB Reviewed 06/24/2011 12:00 AM MAMMOGRAM SCREENING Returned 06/24/2011 12:00 AM BIOPSY OF UTERUS LINING Reviewed 01/09/2016 12:00 AM HEP B SURFACE ANTIBODY Returned 01/09/2016 12:00 AM HEPATITIS B SURFACE AG EIA Returned 01/04/2016 12:00 AM X-RAY EXAM OF HAND Returned 01/04/2016 12:00 AM CUL BACT XCPT URINE BLOOD/STOOL AEROBIC ISOL Returned 07/14/2011 12:00 AM COMPLETE CBC W/AUTO DIFF WBC Returned 07/14/2011 12:00 AM COMPREHEN METABOLIC PANEL Returned 07/14/2011 12:00 AM Type and screen Returned 10/29/2011 12:00 AM CYSTOMETROGRAM W/BRUSHING OPERATOR&UP Reviewed 10/29/2011 12:00 AM ELECTRO-UROFLOWMETRY FIRST Reviewed 10/29/2011 12:00 AM INTRAABDOMINAL PRESSURE TEST Reviewed 11/12/2011 12:00 AM X-RAY URETHRA/BLADDER Reviewed 11/12/2011 12:00 AM X-RAY EXAM SI JOINTS 3/> VWS Reviewed 01/28/2012 12:00 AM MRI LUMBAR SPINE W/O DYE Returned 04/20/2012 12:00 AM THER/PROPH/DIAG INJ SC/IM Reviewed 04/20/2012 12:00 AM Depo-Medrol, Per 120 Mg [facility]#1368-6216-15 Reviewed 07/21/2012 12:00 AM THER/PROPH/DIAG INJ SC/IM Reviewed 07/21/2012 12:00 AM Depo-Medrol, Per 120 Mg [facility]#7667-1092-68 Reviewed 09/01/2012 12:00 AM Drug Screen (Non-Medicare) Reviewed 09/01/2012 12:00 AM DRAIN/INJ JOINT/BURSA W/O US Reviewed 09/01/2012 12:00 AM Kenalog, Per 10 Mg [facility]#0550-6883-29 Reviewed 11/02/2012 12:00 AM Norflex, Up to 60 Mg [facility]#71809-741-08 Reviewed 11/02/2012 12:00 AM INJ TRIGGER POINT 1/2 MUSCL Reviewed 11/02/2012 12:00 AM Bupivicaine, 30 ml [facility]#8997-9160-66 Reviewed 11/02/2012 12:00 AM THER/PROPH/DIAG INJ SC/IM Reviewed 11/02/2012 12:00 AM Norflex, Up to 60 Mg [facility]#42313-712-43 Reviewed 12/27/2012 12:00 AM COMPLETE CBC W/AUTO DIFF WBC Returned 12/27/2012 12:00 AM COMPREHEN METABOLIC PANEL Returned 12/27/2012 12:00 AM ASSAY THYROID STIM HORMONE Returned 12/27/2012 12:00 AM VITAMIN B-12 Returned 12/27/2012 12:00 AM ASSAY OF FERRITIN Returned 12/27/2012 12:00 AM ANTINUCLEAR ANTIBODIES Reviewed 12/27/2012 12:00 AM DNA ANTIBODY IROQUOIS Reviewed 12/27/2012 12:00 AM NUCLEAR ANTIGEN ANTIBODY [...] 12:00 AM Decadron, Per 1 Mg ND# [address]-29 Reviewed 05/31/2013 12:00 AM Depo-Medrol, Per 80 Mg ND#2407-8750-60 Reviewed 05/31/2013 12:00 AM THER/PROPH/DIAG INJ SC/IM Reviewed 06/06/2013 12:00 AM MUSCLE TEST 2 LIMBS Reviewed 06/06/2013 12:00 AM Nerve conduction studies with F-wave Reviewed 08/26/2013 12:00 AM MAMMOGRAM SCREENING Returned 08/26/2013 12:00 AM MAMMOGRAM SCREENING Reviewed 08/30/2013 12:00 AM THER/PROPH/DIAG INJ SC/IM Reviewed 08/30/2013 12:00 AM Decadron, Per 1 Mg ND# [address]-85 Reviewed 08/30/2013 12:00 AM Depo-Medrol, Per 80 Mg ND#9564-9038-34 Reviewed 11/17/2013 12:00 AM THER/PROPH/DIAG INJ SC/IM Reviewed 11/17/2013 12:00 AM Decadron, Per 1 Mg ND# [address]-22 Reviewed 11/17/2013 12:00 AM Depo-Medrol 40mg Reviewed 01/06/2014 12:00 AM THER/PROPH/DIAG INJ SC/IM Reviewed 01/06/2014 12:00 AM Decadron, Per 1 Mg ND# [address]-46 Reviewed 01/06/2014 12:00 AM Rocephin 1 gram [facility]#0927-6270-29 Reviewed 01/10/2014 12:00 AM OFFICE/OUTPATIENT VISIT EST [...] [facility]# [address]-16 Reviewed 10/12/2014 12:00 AM Depo-Medrol 40mg Reviewed [...] 4.43 HGB 13.50 g/dLHCT 41.20 %MCV 93.0 fLH 30.50 pgMCHC 32.80 g/dLRDW CV 12.60 %MPV [...] 0.33 01/09/2016 4:20 PM HBsAg Screen Negative History Of Immunizations Name Date Admin Mfg Name Mfg Code Trade Name Lot# Route Inj Vis Given Vis Pub CVX Influenza 03/02/2013 sanofi pasteur PMC Fluzone [id number] Intramuscular Left Deltoid 03/02/2013 12/17/2012 141 X 02/28/2014 Merck & Co., Inc. MSD Pneumovax 23 [id number] Intramuscular Left Deltoid 02/28/2014 02/27/2009 33 Influenza 03/23/2015 sanofi pasteur PMC Fluzone Quadrivalent [id number] Intramuscular Right Deltoid 03/23/2015 12/29/2014 140 History [...] SI joint pain Sep 01 2012 3:06PM half-way medication use Sep 01 2012 4:05PM Wrist [...] or body fluid Jan 09 2016 3:39PM Payers Insurance Name Company Name Plan Name Plan Number Policy Number Policy Group Number Start Date BCBS Bcbs [facility] [id number] N/A Res Care ResCare [id number] N/A [employer] [place] [id number] Saturday, 2011 [employer] [place] [id number] N/A [employer] [place] [id number] Thursday, 2013 [id number]A [facility] [employer] [facility] [id number] N/A History of Encounters Visit Date Visit Type Provider 01/09/2016 Office visit Leonardo Cowan APRN 01/04/2016 Office visit Leonardo Cowan APRN 11/27/2015 Office visit Chelsea Rodríguez APRN 08/23/2015 Office visit Chelsea Rodríguez APRN 07/19/2015 Office visit 07/19/2015 Office visit Chelsea Rodríguez APRN 06/21/2015 Office visit Chelsea Rodríguez APRN 05/03/2015 Nurse visit Adela PORTER 04/12/2015 Office visit Adela PORTER 03/23/2015 Office visit Chelsea Rodríguez FOUNDRY SUPERVISOR 03/08/2015 Office visit Adela Cole BACK SEAM STITCHER 02/14/2015 Office visit Leonardo Cowan FOUNDRY SUPERVISOR 02/08/2015 Office visit Adela PITTMANP 02/07/2015 Office visit Leonardo Cowan FOUNDRY SUPERVISOR 01/11/2015 Office visit Adela Cole BACK SEAM STITCHER 12/28/2014 Office visit Chelsea Rodríguez FOUNDRY SUPERVISOR 12/14/2014 Nurse visit Adela Cole BACK SEAM STITCHER 11/23/2014 Nurse visit Adela Cole BACK SEAM STITCHER 10/26/2014 Office visit Adela Cole BACK SEAM STITCHER 10/12/2014 Office visit 10/12/2014 Office visit Chelsea Rodríguez FOUNDRY SUPERVISOR 10/05/2014 Nurse visit Adela Cole BACK SEAM STITCHER 09/07/2014 Office visit Adela PITTMANP 08/17/2014 Office visit 08/17/2014 Office visit 08/17/2014 Office visit Chelsea Rodríguez FOUNDRY SUPERVISOR 08/14/2014 Office visit Adela PITTMANP 07/27/2014 Office visit Adela PITTMANP 2014 Office visit Adela PITTMANP 2014 Office visit Mica Lr FOUNDRY SUPERVISOR 06/28/2014 Nurse visit Adela PITTMANP 05/31/2014 Office visit Adela PITTMANP 05/03/2014 Voided Adela PITTMANP 04/26/2014 Office visit Mica Lr FOUNDRY SUPERVISOR 04/05/2014 Office visit Adela PITTMANP 03/10/2014 Office visit Adela PITTMANP 02/28/2014 Office visit Mica Lr FOUNDRY SUPERVISOR 02/24/2014 Office visit Adlea PITTMANP 02/06/2014 Office visit Adela PITTMANP 01/10/2014 Nurse visit Suzan Liang MD 01/06/2014 Office visit Mica Lr FOUNDRY SUPERVISOR 12/15/2013 Office visit Adela PITTMANP 11/17/2013 Office visit Chelsea Rodríguez FOUNDRY SUPERVISOR 11/17/2013 Office visit Adela PITTMANP 10/20/2013 Office visit Adela PITTMANP 09/22/2013 Office visit Adela PITTMANP 08/30/2013 Office visit Chelsea Rodríguez FOUNDRY SUPERVISOR 08/26/2013 Office visit Beti AlexMarcus Reyna FOUNDRY SUPERVISOR 07/29/2013 Office visit Adela Cole BACK SEAM STITCHER 07/06/2013 Procedures Elmira Campbell MD 07/01/2013 Office visit Adela Cole BACK SEAM STITCHER 06/06/2013 Office visit Adela Cole BACK SEAM STITCHER 05/31/2013 Office visit Chelsea Rodríguez FOUNDRY SUPERVISOR 05/11/2013 Office visit Adela Cole BACK SEAM STITCHER 03/22/2013 Office visit Adela Cole BACK SEAM STITCHER 03/10/2013 Office visit Adela Cole BACK SEAM STITCHER 03/04/2013 Office visit Adela Cole BACK SEAM STITCHER 03/02/2013 Office visit Odette Elam MD 02/22/2013 Office visit Adela Cole BACK SEAM STITCHER 01/28/2013 Office visit Chelsea Mracos FOUNDRY SUPERVISOR 01/25/2013 Office visit Adela Cole BACK SEAM STITCHER 12/27/2012 Office visit Adela Cole BACK SEAM STITCHER 12/07/2012 Hospital Pablo Croft MD 11/24/2012 Office visit Pablo Croft MD 11/02/2012 Office visit Kylah Wright FOUNDRY SUPERVISOR 11/02/2012 Office visit Mica Lr FOUNDRY SUPERVISOR 10/05/2012 Hospital Pablo Croft MD 09/30/2012 Office visit Kylah Wright FOUNDRY SUPERVISOR 09/01/2012 Office visit Kylah Wright FOUNDRY SUPERVISOR 07/21/2012 Office visit Odette Elam MD 06/16/2012 [...] Bowens MD 11/12/2011 Office visit Alison Antoine FOUNDRY SUPERVISOR 10/28/2011 Procedures Reji Bowens MD 10/07/2011 Office [...]
--- OUTSIDE RECORDS SUMMARY | 2018-02-14 12:18 | XMS REPORT ---
Author Author Chelsea Rodríguez Organization [facility] Address [address] [place], [place] [address] Care Team Providers Care Central Service Technician Name Role Phone Chelsea Rodríguez PCP Chelsea [...] route every 6 hours for 30 [facility] 300 mg (9)- 600 [...] then Take 1 tab x 2 days. [place] 10-325 mg oral tablet 05/03/2015 06/02/2015 take [...] 11/27/2015 12:00 AM Decadron, Per 1 Mg [facility]# [address]-61 Reviewed 11/27/2015 12:00 AM Depo-Medrol 40mg Reviewed [...] Reviewed 04/24/2016 12:00 AM Toradol 60 Mg [facility]#1876-6563-35 Reviewed 06/11/2016 12:00 AM Consult/Referral Reviewed 06/11/2016 2:41 PM URINALYSIS AUTO W/O SCOPE Reviewed 06/11/2016 12:00 AM URINE CULTURE/COLONY COUNT Reviewed 06/13/2016 12:00 AM Splint, prefabricated, wrist or ankle Reviewed 07/31/2016 12:00 AM LIPID PANEL Reviewed 07/31/2016 12:00 AM MAMMOGRAPHY SCREENING, DIGITAL Reviewed 10/29/2011 12:00 AM CYSTOMETROGRAM W/AFLOAT CRYPTOLOGIC MANAGER&UP Reviewed 10/29/2011 12:00 AM ELECTRO-UROFLOWMETRY FIRST [...] Per 120 Mg [facility]#4846-6530-58 Reviewed 2017 12:00 AM COMPLETE CBC W/AUTO DIFF WBC Returned 2017 12:00 AM COMPREHEN METABOLIC PANEL Returned 2017 12:00 AM LIPID PANEL Returned 2017 12:00 AM ASSAY THYROID STIM HORMONE Returned 07/21/2012 12:00 AM THER/PROPH/DIAG INJ SC/IM Reviewed 07/21/2012 12:00 AM Depo-Medrol, Per 120 Mg [facility]#3565-2660-93 Reviewed 09/01/2012 12:00 AM Drug Screen (Non-Medicare) Reviewed 09/01/2012 12:00 AM DRAIN/INJ JOINT/BURSA W/O US Reviewed 09/01/2012 12:00 AM Kenalog, Per 10 Mg [facility]#4421-3770-08 Reviewed 11/02/2012 12:00 AM Norflex, Up to 60 Mg [facility]#87778-363-43 Reviewed 11/02/2012 12:00 AM INJ TRIGGER POINT 1/2 MUSCL Reviewed 11/02/2012 12:00 AM Bupivicaine, 30 ml [facility]#5389-8678-42 Reviewed 11/02/2012 12:00 AM THER/PROPH/DIAG INJ SC/IM Reviewed 11/02/2012 12:00 AM Norflex, Up to 60 Mg [facility]#79602-937-13 Reviewed 12/27/2012 12:00 AM COMPLETE CBC W/AUTO DIFF WBC Reviewed 12/27/2012 12:00 AM COMPREHEN METABOLIC PANEL Reviewed 12/27/2012 12:00 AM ASSAY THYROID STIM HORMONE Reviewed 12/27/2012 12:00 AM VITAMIN B-12 Reviewed 12/27/2012 12:00 AM ASSAY OF FERRITIN Reviewed 12/27/2012 12:00 AM ANTINUCLEAR ANTIBODIES Reviewed 12/27/2012 12:00 AM DNA ANTIBODY SOKAOGON Reviewed 12/27/2012 12:00 AM NUCLEAR ANTIGEN ANTIBODY [...] 12:00 AM Decadron, Per 1 Mg ND# [address]-45 Reviewed 05/31/2013 12:00 AM Depo-Medrol, Per 80 Mg ND#6293-8480-13 Reviewed 05/31/2013 12:00 AM THER/PROPH/DIAG INJ SC/IM Reviewed 06/06/2013 12:00 AM MUSCLE TEST 2 LIMBS Reviewed 06/06/2013 12:00 AM Nerve conduction studies with F-wave Reviewed 08/26/2013 12:00 AM MAMMOGRAM SCREENING Reviewed 08/26/2013 12:00 AM MAMMOGRAM SCREENING Reviewed 08/30/2013 12:00 AM THER/PROPH/DIAG INJ SC/IM Reviewed 08/30/2013 12:00 AM Decadron, Per 1 Mg ND# [address]-71 Reviewed 08/30/2013 12:00 AM Depo-Medrol, Per 80 Mg N[facility]#7403-5918-25 Reviewed 11/17/2013 12:00 AM THER/PROPH/DIAG INJ SC/IM Reviewed 11/17/2013 12:00 AM Decadron, Per 1 Mg [facility]# [address]-98 Reviewed 11/17/2013 12:00 AM Depo-Medrol 40mg Reviewed 01/06/2014 12:00 AM THER/PROPH/DIAG INJ SC/IM Reviewed 01/06/2014 12:00 AM Decadron, Per 1 Mg [facility]# [address]-73 Reviewed 01/06/2014 12:00 AM Rocephin 1 gram [facility]#1667-6332-88 Reviewed 01/10/2014 12:00 AM OFFICE/OUTPATIENT VISIT EST [...] Per 1 Mg [facility]# [address]-52 Reviewed 10/12/2014 12:00 AM Depo-Medrol 40mg Reviewed [...] CVX Influenza 03/02/2013 sanofi pasteur PMC Fluzone [id number] Intramuscular Left Deltoid 03/02/2013 12/17/2012 141 X 02/28/2014 Merck & Co., Inc. 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 01 2012 4:05PM Wrist [...] heart disease 2017 9:57AM Anxiety 2017 9:57AM Depression 2017 9:57AM Low back pain Jul 20 2017 9:40AM Payers Insurance Name Company Name Plan Name Plan Number Policy Number Policy Group Number Start Date BCBS [employer] [place] [id number] N/A [employer] [place] [id number] Saturday, 2011 [employer] [place] [id number] N/A [employer] [place] [id number] Thursday, 2013 [facility] UMR [id number] N/A [employer] [id number] N/A [employer] [place] [id number] N/A Res Care ResCare [id number] N/A [facility] [employer] [id number] N/A Res Care ResCare [id number] DOI [id number] [facility] [id number] N/A History of Encounters Visit Date Visit Type Provider 2017 Office visit Chelsea Rodríguez IMMUNOLOGIST 05/22/2017 Office visit Chelsea Marcos IMMUNOLOGIST 02/20/2017 Office visit Chelsea Walker IMMUNOLOGIST 02/10/2017 Office visit Jeremy West 01/31/2017 Office visit Dimitri Beebe WASTE MANAGEMENT SPECIALIST 11/20/2016 Office visit Chelsea Marcos IMMUNOLOGIST 08/29/2016 Office visit Chelsea Walker IMMUNOLOGIST 07/31/2016 Office visit Hcelsea Walker IMMUNOLOGIST 06/11/2016 Office visit Chelsea Walker IMMUNOLOGIST 06/05/2016 Office visit Leonardo Cowan IMMUNOLOGIST 05/14/2016 Office visit Chelsea Marcos IMMUNOLOGIST 05/05/2016 Office visit Leonardo Pazran IMMUNOLOGIST 04/24/2016 Office visit Chelsea Marcos IMMUNOLOGIST 04/07/2016 Office visit Chelsea Rodríguez IMMUNOLOGIST 03/04/2016 Office visit Chelsea Rodríguez IMMUNOLOGIST 01/14/2016 Office visit Chelsea Rodríguez IMMUNOLOGIST 01/09/2016 Office visit Leonardo Cowan IMMUNOLOGIST 01/04/2016 Office visit Leonardo Cowan IMMUNOLOGIST 11/27/2015 Office visit Chelsea Rodríguez IMMUNOLOGIST 08/23/2015 Office visit Chelsea Rodríguez IMMUNOLOGIST 07/19/2015 Office visit 07/19/2015 Office visit Chelsea Rodríguez IMMUNOLOGIST 06/21/2015 Office visit Chelsea Marcos IMMUNOLOGIST 05/03/2015 Nurse visit Adela PORTER 04/12/2015 Office visit Adela Cole WORK DISTRIBUTOR 03/23/2015 Office visit Chelsea Marcos IMMUNOLOGIST 03/08/2015 Office visit Adela Cole WORK DISTRIBUTOR 02/14/2015 Office visit Leonardo Cowan IMMUNOLOGIST 02/08/2015 Office visit Adela PITTMANP 02/07/2015 Office visit Leonardo Cowan IMMUNOLOGIST 01/11/2015 Office visit Adela Cole WORK DISTRIBUTOR 12/28/2014 Office visit Chelsea Rodríguez IMMUNOLOGIST 12/14/2014 Nurse visit Adela PITTMANP 11/23/2014 Nurse visit Adela PITTMANP 10/26/2014 Office visit Adela PITTMANP 10/12/2014 Office visit 10/12/2014 Office visit Chelsea Rodríguez IMMUNOLOGIST 10/05/2014 Nurse visit Adela PITTMANP 09/07/2014 Office visit Adela PITTMANP 08/17/2014 Office visit 08/17/2014 Office visit 08/17/2014 Office visit Chelsea Rodríguez IMMUNOLOGIST 08/14/2014 Office visit Adela Cole WORK DISTRIBUTOR 07/27/2014 Office visit Adela Cole WORK DISTRIBUTOR 2014 Office visit Adela Cole WORK DISTRIBUTOR 2014 Office visit Micawillian Lr IMMUNOLOGIST 06/28/2014 Nurse visit Adela Cole WORK DISTRIBUTOR 05/31/2014 Office visit Adela Cole WORK DISTRIBUTOR 05/03/2014 Voided Adela Cole WORK DISTRIBUTOR 04/26/2014 Office visit Mica Kareem Be IMMUNOLOGIST 04/05/2014 Office visit Adela Cole WORK DISTRIBUTOR 03/10/2014 Office visit Adela Cole WORK DISTRIBUTOR 02/28/2014 Office visit Mica Kareem Lr IMMUNOLOGIST 02/24/2014 Office visit Adela Cole WORK DISTRIBUTOR 02/06/2014 Office visit Adela Cole WORK DISTRIBUTOR 01/10/2014 Nurse visit Suzan Liang MD 01/06/2014 Office visit Micawillian Lr IMMUNOLOGIST 12/15/2013 Office visit Adela Cole WORK DISTRIBUTOR 11/17/2013 Office visit Chelsea Rodríguez IMMUNOLOGIST 11/17/2013 Office visit Adela Cole WORK DISTRIBUTOR 10/20/2013 Office visit Adela Cole WORK DISTRIBUTOR 09/22/2013 Office visit Adela PITTMANP 08/30/2013 Office visit Chelsea Rodríguez IMMUNOLOGIST 08/26/2013 Office visit Beti Reyna IMMUNOLOGIST 07/29/2013 Office visit Adela Cole WORK DISTRIBUTOR 07/06/2013 Procedures Elmira Campbell MD 07/01/2013 Office visit Adela Cole WORK DISTRIBUTOR 06/06/2013 Office visit Adela Cole WORK DISTRIBUTOR 05/31/2013 Office visit Chelsea Rodríguez IMMUNOLOGIST 05/11/2013 Office visit Adela Cole WORK DISTRIBUTOR 03/22/2013 Office visit Adela Cole WORK DISTRIBUTOR 03/10/2013 Office visit Adela PITTMANP 03/04/2013 Office visit Adela PITTMANP 03/02/2013 Office visit Odette Elam MD 02/22/2013 Office visit Adela PITTMANP 01/28/2013 Office visit Chelsea Rodríguez IMMUNOLOGIST 01/25/2013 Office visit Adela PITTMANP 12/27/2012 Office visit Adela PORTER 12/07/2012 [facility] Pablo Croft MD 11/24/2012 Office visit Pablo Croft MD 11/02/2012 Office visit Kylah Wright IMMUNOLOGIST 11/02/2012 Office visit Mica Lr IMMUNOLOGIST 10/05/2012 [facility] Pablo Croft MD 09/30/2012 Office visit Kylah Wright IMMUNOLOGIST 09/01/2012 Office visit Kylah Wright IMMUNOLOGIST 07/21/2012 Office visit Odette Elam MD 06/16/2012 Office visit Pablo Croft MD 05/11/2012 [facility] Pablo Croft MD 04/28/2012 Office visit Pablo Croft MD 04/20/2012 Office visit Odette Elam MD 03/29/2012 Office visit Pablo Croft MD 03/16/2012 [facility] Pablo Croft MD 03/09/2012 [facility] Pablo Croft MD 02/24/2012 [facility] Pablo Croft MD 02/11/2012 Office visit Pablo Croft MD 01/28/2012 Office visit Pablo Croft MD 01/19/2012 Office visit Odette Elam MD 12/03/2011 Office visit Reji Bowens MD 11/12/2011 Office visit Alison Antoine IMMUNOLOGIST 10/28/2011 Procedures Reji Bowens MD 10/07/2011 Office visit Odette Elam MD 09/04/2011 Surgery Reji Bowens MD 08/15/2011 Surgery Reji Bowens MD 07/22/2011 [facility] Naveen Aguilar MD 07/22/2011 [facility] Reji Bowens MD 07/14/2011 Surgery Reji Bowens MD 06/26/2011 Office visit Odette Elam MD 06/24/2011 Office visit Reji Bowens MD 12/04/2010 [facility] Asha Church MD
--- OUTSIDE RECORDS SUMMARY | 2018-02-14 12:19 | XMS REPORT ---
Author Author Odette Elam [facility] Address [address] [place], [place] [id number] Care Team Providers Care Cushion Filler Name Role Phone Odette Elam PCP Unavailable Allergies and Adverse Reactions Name Reaction Notes Keflex Plan of Treatment Planned Activity Comments Planned Date Planned Time Plan/Goal METABOLIC PANEL TOTAL CA 10/12/2014 12:00 AM Medications Active Name Start Date Estimated Completion Date SIG Comments gabapentin oral capsule 300 mg 2014 11/14/2014 take 1 capsule by oral route 3 times a day for 30 days meloxicam oral tablet 15 mg 2014 11/14/2014 take 1 tablet (15 mg) by oral route once daily for 30 days Chantix Continuing Month Donn oral tablet 1 mg 09/04/2014 11/27/2014 take 1 tablet (1 mg) with a glass of water by oral route 2 times per day after meals for 12 weeks Russell oral tablet 10-325 mg 10/05/2014 11/04/2014 take 1 tablet by oral route every 8 hours as needed for 30 days Zanaflex oral tablet 4 mg 10/05/2014 01/03/2015 take 1 tablet by oral route once a day (at bedtime) as needed for 30 days Augmentin oral tablet 875-125 mg 10/12/2014 take 1 tablet by oral route every 12 hours alprazolam oral tablet 0.5 mg 10/12/2014 01/10/2015 take 1 tablet by oral route every 6 hours for 30 days Cymbalta oral capsule,delayed release(DR/EC) 60 mg 10/12/2014 take 1 capsule (60 mg) by oral route once daily Wellbutrin oral tablet 100 mg 10/12/2014 take 1 tablet (100 mg) by oral route 2 times per day Name Start Date Expiration Date SIG Comments [...] as needed for 30 days Medrol (Donn) oral tablets,dose pack 4 mg 01/06/2014 take [...] 201410/04/2014 take as directed for 30 days Nucynta ER oral tablet extended release 12 hr 100 mg 09/07/2014 10/07/2014 take 1 tablet (100 mg) by oral route every 12 hours for 30 days Discontinued Name Start Date [...] HC BMI BSA BMI Percentile O2 Sat(%) 10/12/2014 3:36:00 PM 124 mmHg 64 mmHg [...] F 148 lbs 70 in 21.24 kg/m2 1.8209 m 07/29/2013 8:59:00 AM 98 mmHg 76 mmHg 76 bpm 16 rpm 97 F 146.375 lbs 70 in 21.0024 kg/m 1.81 m2 07/01/2013 9:03:00 AM 124 mmHg 74 mmHg 78 bpm 20 rpm 97.5 F 06/06/2013 9:45:00 AM 158 mmHg 100 mmHg 64 bpm 16 rpm 97.4 F 150.125 lbs 70 in 21.5405 kg/m 1.83 m2 05/31/2013 9:58:00 AM 128 mmHg 64 mmHg 110 bpm 18 rpm 98.7 F 152 lbs 70 in 21.81 kg/m2 1.8453 m 97 % 05/11/2013 3:00:00 PM 122 mmHg 74 mmHg 82 bpm 16 rpm 98.2 F 151.25 lbs 70 in 21.7019 kg/m 1.84 m2 03/22/2013 3:21:00 PM 144 mmHg 90 mmHg 88 bpm 18 rpm 97 F 149.125 lbs 70 in 21.40 kg/m2 1.8278 m 03/10/2013 3:24:00 PM 110 mmHg [...] 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 MSD Pneumovax 23 [id number] Intramuscular Left Deltoid 02/28/2014 02/27/2009 33 History [...] 3:38PM Muscle ache Oct 12 2014 3:38PM Payers Insurance Name Company Name Plan Name Plan Number Policy Number Policy Group Number Start Date [facility] UMR [id number] N/A [employer] [facility] [place] [id number] Saturday, 2011 [facility] [facility] [place] [id number] N/A [facility] [place] [id number] Thursday, 2013 History of Encounters Visit Date Visit Type Provider 10/12/2014 Office visit Chelsea Rodríguez APRN 10/05/2014 Nurse visit Adela PORTER 09/07/2014 Office visit Adela PORTER 08/17/2014 Office visit Chelsea Rodríguez APRN 08/14/2014 Office visit Adela PORTER 07/27/2014 Office visit Adela PORTER 2014 Office visit Mica Lr APRN 2014 Office visit Adela M. Douglas POLICE SPECIALIST 06/28/2014 Nurse visit Adela JohnsonMarcus Douglas POLICE SPECIALIST 05/31/2014 Office visit Adela JohnsonMarcus Douglas POLICE SPECIALIST 05/03/2014 Office visit Adela M. Douglas POLICE SPECIALIST 04/26/2014 Office visit Mica Lr QUALITY CONTROL DIRECTOR 04/05/2014 Office visit Adela M. Douglas POLICE SPECIALIST 03/10/2014 Office visit Adela JohnsonMarcus Douglas POLICE SPECIALIST 02/28/2014 Office visit Mica Lr QUALITY CONTROL DIRECTOR 02/24/2014 Office visit Adelacatherine Cole POLICE SPECIALIST 02/06/2014 Office visit Adela M. Douglas POLICE SPECIALIST 01/10/2014 Nurse visit Suzan Liang MD 01/06/2014 Office visit Mica Lr QUALITY CONTROL DIRECTOR 12/15/2013 Office visit Adelacatherine Cole POLICE SPECIALIST 11/17/2013 Office visit Adela M. Douglas POLICE SPECIALIST 11/17/2013 Office visit Chelsea Rodríguez QUALITY CONTROL DIRECTOR 10/20/2013 Office visit Adela Cole POLICE SPECIALIST 09/22/2013 Office visit Adela Cole POLICE SPECIALIST 08/30/2013 Office visit Chelsea Marcos QUALITY CONTROL DIRECTOR 08/26/2013 Office visit Beti Reyna QUALITY CONTROL DIRECTOR 07/29/2013 Office visit Adela Cole POLICE SPECIALIST 07/06/2013 [facility] Elmira Campbell MD 07/01/2013 Office visit Adela Cole POLICE SPECIALIST 06/06/2013 Office visit Adela JohnsonMarcus Douglas POLICE SPECIALIST 05/31/2013 Office visit Chelsea Rodríguez QUALITY CONTROL DIRECTOR 05/11/2013 Office visit Adela Cole POLICE SPECIALIST 03/22/2013 Office visit Adela Cole POLICE SPECIALIST 03/10/2013 Office visit Adela Cole POLICE SPECIALIST 03/04/2013 Office visit Adela Cole POLICE SPECIALIST 03/02/2013 Office visit Odette Elam MD 02/22/2013 Office visit Adela Cole POLICE SPECIALIST 01/28/2013 Office visit Chelsea Rodríguez QUALITY CONTROL DIRECTOR 01/25/2013 Office visit Adela Cole POLICE SPECIALIST 12/27/2012 Office visit Adela PITTMANP 12/07/2012 [facility] Pablo Croft MD 11/24/2012 Office visit Pablo Croft MD 11/02/2012 Office visit Mica Lr QUALITY CONTROL DIRECTOR 11/02/2012 Office visit Kylah Wright QUALITY CONTROL DIRECTOR 10/05/2012 [facility] Pablo Croft MD 09/30/2012 Office visit Kylah [place] QUALITY CONTROL DIRECTOR 09/01/2012 Office visit Kylah Wright QUALITY CONTROL DIRECTOR 07/21/2012 Office visit Odette Elam MD 06/16/2012 Office visit Pablo Croft MD 05/11/2012 [facility] Pablo Croft MD 04/28/2012 Office visit Pablo Croft MD 04/20/2012 Office visit Odette Elam MD 03/29/2012 Office visit Pablo Croft MD 03/16/2012 [facility] Pablo Croft MD 03/09/2012 [facility] Pablo Croft MD 02/24/2012 [facility] Pablo Croft MD 02/11/2012 Office visit Pablo Croft MD 01/28/2012 Office visit Pablo Croft MD 01/19/2012 Office visit Odette Elam MD 12/03/2011 Office visit Reji Bowens MD 11/12/2011 Office visit Alison Antoine QUALITY CONTROL DIRECTOR 10/28/2011 Procedures Reji Bowens MD 10/07/2011 Office visit Odette Elam MD 09/04/2011 Surgery Reji Bowens MD 08/15/2011 Surgery Reji Bowens MD 07/22/2011 [facility] Reji Bowens MD 07/22/2011 [facility] Naveen Aguilar MD 07/14/2011 Surgery Reji Bowens MD 06/26/2011 Office visit Odette Elam MD 06/24/2011 Office visit Reji Bowens MD 12/04/2010 [facility] Asha Church MD
--- OUTSIDE RECORDS SUMMARY | 2018-02-14 12:21 | XMS REPORT ---
Author Chelsea Soliz Organization [facility] Address [address] [place], [place] [id number] Care Team Providers Care Collection Systems Administrator Name Role Phone Chelsea Rodríguez PCP Unavailable [...] then Take 1 tab x 2 days. Goltry 10-325 mg oral tablet 05/03/2015 06/02/2015 take [...] AM Decadron, Per 1 Mg [facility]# [id number] Reviewed 11/27/2015 12:00 AM Depo-Medrol 40mg Reviewed [...] INOCULATION TISSUE Returned 10/29/2011 12:00 AM CYSTOMETROGRAM W/ELECTRICAL AND INSTRUMENTATION MECHANIC&UP Reviewed 10/29/2011 12:00 AM ELECTRO-UROFLOWMETRY FIRST Reviewed 10/29/2011 12:00 AM INTRAABDOMINAL PRESSURE TEST Reviewed 11/12/2011 12:00 AM X-RAY URETHRA/BLADDER Reviewed 11/12/2011 12:00 AM X-RAY EXAM SI JOINTS 3/> VWS Reviewed 01/28/2012 12:00 AM MRI LUMBAR SPINE W/O DYE Returned 04/20/2012 12:00 AM THER/PROPH/DIAG INJ SC/IM Reviewed 04/20/2012 12:00 AM Depo-Medrol, Per 120 Mg [facility]#[id number] Reviewed 07/21/2012 12:00 AM THER/PROPH/DIAG INJ SC/IM Reviewed 07/21/2012 12:00 AM Depo-Medrol, Per 120 Mg [facility]#[id number] Reviewed 09/01/2012 12:00 AM Drug Screen (Non-Medicare) Reviewed 09/01/2012 12:00 AM DRAIN/INJ JOINT/BURSA W/O US Reviewed 09/01/2012 12:00 AM Kenalog, Per 10 Mg [facility]#[id number] Reviewed 11/02/2012 12:00 AM Norflex, Up to 60 Mg [facility]#34098-130-12 Reviewed 11/02/2012 12:00 AM INJ TRIGGER POINT 1/2 MUSCL Reviewed 11/02/2012 12:00 AM Bupivicaine, 30 ml [facility]#[id number] Reviewed 11/02/2012 12:00 AM THER/PROPH/DIAG INJ SC/IM Reviewed 11/02/2012 12:00 AM Norflex, Up to 60 Mg [facility]#63671-796-03 Reviewed 12/27/2012 12:00 AM COMPLETE CBC W/AUTO DIFF WBC Returned 12/27/2012 12:00 AM COMPREHEN METABOLIC PANEL Returned 12/27/2012 12:00 AM ASSAY THYROID STIM HORMONE Returned 12/27/2012 12:00 AM VITAMIN B-12 Returned 12/27/2012 12:00 AM ASSAY OF FERRITIN Returned 12/27/2012 12:00 AM ANTINUCLEAR ANTIBODIES Reviewed 12/27/2012 12:00 AM DNA ANTIBODY TRIBAL Reviewed 12/27/2012 12:00 AM NUCLEAR ANTIGEN ANTIBODY [...] AM Decadron, Per 1 Mg [facility]# [id number] Reviewed 05/31/2013 12:00 AM Depo-Medrol, Per 80 Mg [facility]#[id number] Reviewed 05/31/2013 12:00 AM THER/PROPH/DIAG INJ SC/IM Reviewed 06/06/2013 12:00 AM MUSCLE TEST 2 LIMBS Reviewed 06/06/2013 12:00 AM Nerve conduction studies with F-wave Reviewed 08/26/2013 12:00 AM MAMMOGRAM SCREENING Returned 08/26/2013 12:00 AM MAMMOGRAM SCREENING Reviewed 08/30/2013 12:00 AM THER/PROPH/DIAG INJ SC/IM Reviewed 08/30/2013 12:00 AM Decadron, Per 1 Mg [facility]# [id number] Reviewed 08/30/2013 12:00 AM Depo-Medrol, Per 80 Mg [facility]#[id number] Reviewed 11/17/2013 12:00 AM THER/PROPH/DIAG INJ SC/IM Reviewed 11/17/2013 12:00 AM Decadron, Per 1 Mg [facility]# [id number] Reviewed 11/17/2013 12:00 AM Depo-Medrol 40mg Reviewed 01/06/2014 12:00 AM THER/PROPH/DIAG INJ SC/IM Reviewed 01/06/2014 12:00 AM Decadron, Per 1 Mg [facility]# [id number] Reviewed 01/06/2014 12:00 AM Rocephin 1 gram [facility]#[id number] Reviewed 01/10/2014 12:00 AM OFFICE/OUTPATIENT VISIT EST [...] AM Decadron, Per 1 Mg [facility]# [id number] Reviewed 10/12/2014 12:00 AM Depo-Medrol 40mg Reviewed [...] CVX Influenza 03/02/2013 sanofi pasteur PMC Fluzone [id number] Intramuscular Left Deltoid 03/02/2013 12/17/2012 141 X 02/28/2014 Merck & Co., Inc. MSD Pneumovax 23 [id number] Intramuscular Left Deltoid 02/28/2014 02/27/2009 33 Influenza 03/23/2015 sanofi pasteur PMC Fluzone Quadrivalent [id number] Intramuscular Right Deltoid 03/23/2015 12/29/2014 140 Influenza [...] SI joint pain Sep 01 2012 3:06PM [facility] medication use Sep 01 2012 4:05PM Wrist [...] Policy Group Number Start Date [facility] [id number] N/A [facility] [id number] N/A [facility] [employer] [id number] N/A [employer] [facility] [id number] Saturday, [address] [facility] [id number] N/A [employer] [facility] [id number] Thursday, 2013 UMR UMR [id number] N/A [employer] [id number] N/A History of Encounters Visit Date Visit Type Provider 03/04/2016 Office visit Chelsea Rodríguez APRN 01/14/2016 Office visit Chelsea Rodríguez APRN 01/09/2016 Office visit Leonardo Cowan APRN 01/04/2016 Office visit Leonardo Cowan APRN 11/27/2015 Office visit Chelsea Rodríguez APRN 08/23/2015 Office visit Chelsea Rodríguez TAFE TEACHER 07/19/2015 Office visit 07/19/2015 Office visit Chelsea Rodríguez TAFE TEACHER 06/21/2015 Office visit Chelsea Rodríguez TAFE TEACHER 05/03/2015 Nurse visit Adela Cole PECAN GROWER 04/12/2015 Office visit Adela Cole PECAN GROWER 03/23/2015 Office visit Chelsea Rodríguez TAFE TEACHER 03/08/2015 Office visit Adela Cole PECAN GROWER 02/14/2015 Office visit Leonardo Cowan TAFE TEACHER 02/08/2015 Office visit Adela Coel PECAN GROWER 02/07/2015 Office visit Leonardo Cowan TAFE TEACHER 01/11/2015 Office visit Adela Cole PECAN GROWER 12/28/2014 Office visit Chelsea Rodríguez TAFE TEACHER 12/14/2014 Nurse visit Adela Cole PECAN GROWER 11/23/2014 Nurse visit Adela Cole PECAN GROWER 10/26/2014 Office visit Adela PITTMANP 10/12/2014 Office visit 10/12/2014 Office visit Chelsea Rodríguez TAFE TEACHER 10/05/2014 Nurse visit Adela Cole PECAN GROWER 09/07/2014 Office visit Adela PITTMANP 08/17/2014 Office visit 08/17/2014 Office visit 08/17/2014 Office visit Chelsea Rodríguez TAFE TEACHER 08/14/2014 Office visit Adela Cole PECAN GROWER 07/27/2014 Office visit Adela PITTMANP 2014 Office visit Adela PITTMANP 2014 Office visit Mica Lr TAFE TEACHER 06/28/2014 Nurse visit Adela PITTMANP 05/31/2014 Office visit Adela Cole PECAN GROWER 05/03/2014 Voided Aedla PITTMANP 04/26/2014 Office visit Mica Lr TAFE TEACHER 04/05/2014 Office visit Adela PITTMANP 03/10/2014 Office visit Adela PITTMANP 02/28/2014 Office visit Mica Lr TAFE TEACHER 02/24/2014 Office visit Adela PITTMANP 02/06/2014 Office visit Adela PITTMANP 01/10/2014 Nurse visit Suzan Liang MD 01/06/2014 Office visit Mica Lr TAFE TEACHER 12/15/2013 Office visit Adela PITTMANP 11/17/2013 Office visit Chelsea Rodríguez TAFE TEACHER 11/17/2013 Office visit Adela AlexMarcus Cole PECAN GROWER 10/20/2013 Office visit Adela Cole PECAN GROWER 09/22/2013 Office visit Adela AlexMarcus Cole PECAN GROWER 08/30/2013 Office visit Chelsea Rodríguez TAFE TEACHER 08/26/2013 Office visit Beti MMarcus Reyna TAFE TEACHER 07/29/2013 Office visit Adela Cole PECAN GROWER 07/06/2013 [facility] Elmira Campbell MD 07/01/2013 Office visit Adela MMarcus Cole PECAN GROWER 06/06/2013 Office visit Adela M. Douglas PECAN GROWER 05/31/2013 Office visit Chelsea Rodríguez TAFE TEACHER 05/11/2013 Office visit Adela AlexMarcus Cole PECAN GROWER 03/22/2013 Office visit Adela Cole PECAN GROWER 03/10/2013 Office visit Adela Manjit Douglas PECAN GROWER 03/04/2013 Office visit Adela Cole PECAN GROWER 03/02/2013 Office visit Odette Elam MD 02/22/2013 Office visit Adela Cole PECAN GROWER 01/28/2013 Office visit Chelsea Rodríguez TAFE TEACHER 01/25/2013 Office visit Adela Cole PECAN GROWER 12/27/2012 Office visit Adela Cole PECAN GROWER 12/07/2012 Hospital Pablo Croft MD 11/24/2012 Office visit Pablo Croft MD 11/02/2012 Office visit Kylah Wright TAFE TEACHER 11/02/2012 Office visit Mica Lr TAFE TEACHER 10/05/2012 [facility] Pablo Croft MD 09/30/2012 Office visit Kylah Wright TAFE TEACHER 09/01/2012 Office visit Kylah Wright TAFE TEACHER 07/21/2012 Office visit Odette Elam MD 06/16/2012 Office visit Pablo Croft MD 05/11/2012 [facility] Pablo Croft MD 04/28/2012 Office visit Pablo Croft MD 04/20/2012 Office visit Odette Elam MD 03/29/2012 Office visit Pablo Croft MD 03/16/2012 [facility] Pablo Croft MD 03/09/2012 [facility] Pablo Croft MD 02/24/2012 [facility] Pablo Croft MD 02/11/2012 Office visit Pablo Croft MD 01/28/2012 Office visit Pablo Crfot MD 01/19/2012 Office visit Odette Elam MD 12/03/2011 Office visit Reji Bowens MD 11/12/2011 Office visit Alison Antoine APRN 10/28/2011 Procedures Reji Bowens MD 10/07/2011 Office visit Odette Elam MD 09/04/2011 Surgery Reji Bowens MD 08/15/2011 Surgery Reji Bowens MD 07/22/2011 [facility] Naveen Aguilar MD 07/22/2011 [facility] Reji Bowens MD 07/14/2011 Surgery Reji Bowens MD 06/26/2011 Office visit Odette Elam MD 06/24/2011 Office visit Reji Bowens MD 12/04/2010 [facility] Asha Church MD
--- OUTSIDE RECORDS SUMMARY | 2018-02-14 12:23 | XMS REPORT ---
Author Chelsea Soliz Organization [facility] Address [address] [place], [place] [id number] Care Team Providers Care Assembly Machine Tool Setter Name Role Phone Chelsea Rodríguez PCP Unavailable [...] then Take 1 tab x 2 days. 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 History [...] and screen Returned 10/29/2011 12:00 AM CYSTOMETROGRAM W/PARTNER MARKETING MANAGER&UP Reviewed 10/29/2011 12:00 AM ELECTRO-UROFLOWMETRY FIRST Reviewed 10/29/2011 12:00 AM INTRAABDOMINAL PRESSURE TEST Reviewed 11/12/2011 12:00 AM X-RAY URETHRA/BLADDER Reviewed 11/12/2011 12:00 AM X-RAY EXAM SI JOINTS 3/> VWS Reviewed 01/28/2012 12:00 AM MRI LUMBAR SPINE W/O DYE Returned 04/20/2012 12:00 AM THER/PROPH/DIAG INJ SC/IM Reviewed 04/20/2012 12:00 AM Depo-Medrol, Per 120 Mg [facility]#[id number] Reviewed 07/21/2012 12:00 AM THER/PROPH/DIAG INJ SC/IM Reviewed 07/21/2012 12:00 AM Depo-Medrol, Per 120 Mg [facility]#[id number] Reviewed 09/01/2012 12:00 AM Drug Screen (Non-Medicare) Reviewed 09/01/2012 12:00 AM Kenalog, Per 10 Mg [facility]#[id number] Reviewed 11/02/2012 12:00 AM Norflex, Up to 60 Mg [facility]#61560-004-77 Reviewed 11/02/2012 12:00 AM INJ TRIGGER POINT 1/2 MUSCL Reviewed 11/02/2012 12:00 AM Bupivicaine, 30 ml [facility]#[id number] Reviewed 11/02/2012 12:00 AM THER/PROPH/DIAG INJ SC/IM Reviewed 11/02/2012 12:00 AM Norflex, Up to 60 Mg [facility]#[id number] Reviewed 12/27/2012 12:00 AM COMPLETE CBC W/AUTO DIFF WBC Returned 12/27/2012 12:00 AM COMPREHEN METABOLIC PANEL Returned 12/27/2012 12:00 AM ASSAY THYROID STIM HORMONE Returned 12/27/2012 12:00 AM VITAMIN B-12 Returned 12/27/2012 12:00 AM ASSAY OF FERRITIN Returned 12/27/2012 12:00 AM ANTINUCLEAR ANTIBODIES Reviewed 12/27/2012 12:00 AM DNA ANTIBODY NULATO Reviewed 12/27/2012 12:00 AM NUCLEAR ANTIGEN ANTIBODY [...] Per 1 Mg [facility]# [id number] Reviewed 05/31/2013 12:00 AM Depo-Medrol, Per 80 Mg [facility]#[id number] Reviewed 05/31/2013 12:00 AM THER/PROPH/DIAG INJ SC/IM Reviewed 06/06/2013 12:00 AM MUSCLE TEST 2 LIMBS Reviewed 06/06/2013 12:00 AM Nerve conduction studies with F-wave Reviewed 08/26/2013 12:00 AM MAMMOGRAM SCREENING Returned 08/26/2013 12:00 AM MAMMOGRAM SCREENING Reviewed 08/30/2013 12:00 AM THER/PROPH/DIAG INJ SC/IM Reviewed 08/30/2013 12:00 AM Decadron, Per 1 Mg [facility]# [id number] Reviewed 08/30/2013 12:00 AM Depo-Medrol, Per 80 Mg [facility]#[id number] Reviewed 11/17/2013 12:00 AM THER/PROPH/DIAG INJ SC/IM Reviewed 11/17/2013 12:00 AM Decadron, Per 1 Mg [facility]# [id number] Reviewed 11/17/2013 12:00 AM Depo-Medrol 40mg Reviewed 01/06/2014 12:00 AM THER/PROPH/DIAG INJ SC/IM Reviewed 01/06/2014 12:00 AM Decadron, Per 1 Mg [facility]# [id number] Reviewed 01/06/2014 12:00 AM Rocephin 1 gram [facility]#[id number] Reviewed 01/10/2014 12:00 AM OFFICE/OUTPATIENT VISIT EST [...] 10/12/2014 12:00 AM Decadron, Per 1 Mg [facility]# [id number] Reviewed 10/12/2014 12:00 AM Depo-Medrol 40mg Reviewed [...] CVX Influenza 03/02/2013 sanofi pasteur PMC Fluzone [id number] Intramuscular Left Deltoid 03/02/2013 12/17/2012 141 Pneumococcal 02/28/2014 [employer]ck & Co., Inc[employer] 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 [employer] [facility] [id number] N/A [employer] [facility] [place] [id number] Saturday, 2011 [employer] [place] [id number] N/A [employer] [place] [id number] Thursday, 2013 History of Encounters Visit Date Visit Type Provider 06/21/2015 Office visit Chelsea Rodríguez CRIMPER ASSEMBLER 05/03/2015 Nurse visit Adela PITTMANP 04/12/2015 Office visit Adela PITTMANP 03/23/2015 Office visit Chelsea Rodríguez CRIMPER ASSEMBLER 03/08/2015 Office visit Adela Cole WEB SITE ADMIN 02/14/2015 Office visit Leonardo Cowan CRIMPER ASSEMBLER 02/08/2015 Office visit Adela PITTMANP 02/07/2015 Office visit Leonardo Camryn CRIMPER ASSEMBLER 01/11/2015 Office visit Adela Cole WEB SITE ADMIN 12/28/2014 Office visit Chelsea Rodríguez CRIMPER ASSEMBLER 12/14/2014 Nurse visit Adela Cole WEB SITE ADMIN 11/23/2014 Nurse visit Adela PITTMANP 10/26/2014 Office visit Adela PITTMANP 10/12/2014 Office visit 10/12/2014 Office visit Chelsea Rodríguez CRIMPER ASSEMBLER 10/05/2014 Nurse visit Adela PITTMANP 09/07/2014 Office visit Adela PITTMANP 08/17/2014 Office visit 08/17/2014 Office visit 08/17/2014 Office visit Chelsea Rodríguez CRIMPER ASSEMBLER 08/14/2014 Office visit Adela PITTMANP 07/27/2014 Office visit Adela PITTMANP 2014 Office visit Adela PITTMANP 2014 Office visit Mica Lr CRIMPER ASSEMBLER 06/28/2014 Nurse visit Adela PITTMANP 05/31/2014 Office visit Adela PITTMANP 05/03/2014 Voided Adela PITTMANP 04/26/2014 Office visit Mica Lr CRIMPER ASSEMBLER 04/05/2014 Office visit Adela PITTMANP 03/10/2014 Office visit Adela PITTMANP 02/28/2014 Office visit Mica Lr CRIMPER ASSEMBLER 02/24/2014 Office visit Adela PITTMANP 02/06/2014 Office visit Adela PITTMANP 01/10/2014 Nurse visit Suzan Liang MD 01/06/2014 Office visit Mica Lr CRIMPER ASSEMBLER 12/15/2013 Office visit Adela PITTMANP 11/17/2013 Office visit Chelsea Rodríguez CRIMPER ASSEMBLER 11/17/2013 Office visit Adela M. Douglas WEB SITE ADMIN 10/20/2013 Office visit Adela M. Douglas WEB SITE ADMIN 09/22/2013 Office visit Adela M. Douglas WEB SITE ADMIN 08/30/2013 Office visit Chelsea Rodríguez CRIMPER ASSEMBLER 08/26/2013 Office visit Betibarry Reyna CRIMPER ASSEMBLER 07/29/2013 Office visit Adela AlexMarcus Cole WEB SITE ADMIN 07/06/2013 [facility] Elmira Campbell MD 07/01/2013 Office visit Adela Saravia Douglas WEB SITE ADMIN 06/06/2013 Office visit Adela Saravia Douglas WEB SITE ADMIN 05/31/2013 Office visit Chelsea Rodríguez CRIMPER ASSEMBLER 05/11/2013 Office visit Adela M. Douglas WEB SITE ADMIN 03/22/2013 Office visit Adela Saravia Douglas WEB SITE ADMIN 03/10/2013 Office visit Adela Cole WEB SITE ADMIN 03/04/2013 Office visit Adela M. Douglas WEB SITE ADMIN 03/02/2013 Office visit Odette Elam MD 02/22/2013 Office visit Adela AlexMarcus Cole WEB SITE ADMIN 01/28/2013 Office visit Chelsea Rodríguez CRIMPER ASSEMBLER 01/25/2013 Office visit Adela Manjit Douglas WEB SITE ADMIN 12/27/2012 Office visit Adela Cole WEB SITE ADMIN 12/07/2012 [facility] Pablo Croft MD 11/24/2012 Office visit Pablo Croft MD 11/02/2012 Office visit Kylah Wright CRIMPER ASSEMBLER 11/02/2012 Office visit Mica Lr CRIMPER ASSEMBLER 10/05/2012 [facility] Pablo Croft MD 09/30/2012 Office visit Kylah Wright CRIMPER ASSEMBLER 09/01/2012 Office visit Kylah Wright CRIMPER ASSEMBLER 07/21/2012 Office visit Odette Elam MD 06/16/2012 [...]
--- OUTSIDE RECORDS SUMMARY | 2018-02-14 12:25 | XMS REPORT ---
Author Chelsea Soliz Organization [facility] Address [address] [place], [place] [address] Care Team Providers Care Manager Metrology Name Role Phone Chelsea Rodríguez PCP Unavailable Chelsea Rodríguez PreferredProvider Unavailable Allergies and Adverse Reactions Name Reaction Notes Keflex yeast infection does not want to take due to causes yeast infection Plan of Treatment Planned Activity Comments Planned Date Planned Time Plan/Goal Treadmill 06/22/2015 12:00 AM EKG (12-lead electrocardiogram) 06/21/2015 12:00 AM Urine Culture, [place] Count 06/11/2016 12:00 AM bilateral foot pain [...] then Take 1 tab x 2 days. Esopus 10-325 mg oral tablet 05/03/2015 06/02/2015 take [...] 1 Mg [facility]# [address]-41 Reviewed 11/27/2015 12:00 AM Depo-Medrol 40mg Reviewed [...] Returned 04/24/2016 12:00 AM Toradol 60 Mg [facility]#0888-4929-22 Reviewed 06/11/2016 12:00 AM Consult/Referral Reviewed 06/11/2016 2:41 PM URINALYSIS AUTO W/O SCOPE Reviewed 10/29/2011 12:00 AM CYSTOMETROGRAM W/PUBLICATIONS SALES REPRESENTATIVE&UP Reviewed 10/29/2011 12:00 AM ELECTRO-UROFLOWMETRY FIRST Reviewed 10/29/2011 12:00 AM INTRAABDOMINAL PRESSURE TEST Reviewed 11/12/2011 12:00 AM X-RAY URETHRA/BLADDER Reviewed 11/12/2011 12:00 AM X-RAY EXAM SI JOINTS 3/> VWS Reviewed 01/28/2012 12:00 AM MRI LUMBAR SPINE W/O DYE Reviewed 04/20/2012 12:00 AM THER/PROPH/DIAG INJ SC/IM Reviewed 04/20/2012 12:00 AM Depo-Medrol, Per 120 Mg [facility]#8402-2423-03 Reviewed 07/21/2012 12:00 AM THER/PROPH/DIAG INJ SC/IM Reviewed 07/21/2012 12:00 AM Depo-Medrol, Per 120 Mg [facility]#9756-1548-38 Reviewed 09/01/2012 12:00 AM Drug Screen (Non-Medicare) Reviewed 09/01/2012 12:00 AM DRAIN/INJ JOINT/BURSA W/O US Reviewed 09/01/2012 12:00 AM Kenalog, Per 10 Mg [facility]#8874-9942-05 Reviewed 11/02/2012 12:00 AM Norflex, Up to 60 Mg [facility]#85044-629-23 Reviewed 11/02/2012 12:00 AM INJ TRIGGER POINT 1/2 MUSCL Reviewed 11/02/2012 12:00 AM Bupivicaine, 30 ml [facility]#4761-4031-86 Reviewed 11/02/2012 12:00 AM THER/PROPH/DIAG INJ SC/IM Reviewed 11/02/2012 12:00 AM Norflex, Up to 60 Mg [facility]#77448-074-97 Reviewed 12/27/2012 12:00 AM COMPLETE CBC W/AUTO DIFF WBC Reviewed 12/27/2012 12:00 AM COMPREHEN METABOLIC PANEL Reviewed 12/27/2012 12:00 AM ASSAY THYROID STIM HORMONE Reviewed 12/27/2012 12:00 AM VITAMIN B-12 Reviewed 12/27/2012 12:00 AM ASSAY OF FERRITIN Reviewed 12/27/2012 12:00 AM ANTINUCLEAR ANTIBODIES Reviewed 12/27/2012 12:00 AM DNA ANTIBODY BIG SANDY Reviewed 12/27/2012 12:00 AM NUCLEAR ANTIGEN ANTIBODY [...] 1 Mg [facility]# [address]-24 Reviewed 05/31/2013 12:00 AM Depo-Medrol, Per 80 Mg [facility]#0061-8581-93 Reviewed 05/31/2013 12:00 AM THER/PROPH/DIAG INJ SC/IM Reviewed 06/06/2013 12:00 AM MUSCLE TEST 2 LIMBS Reviewed 06/06/2013 12:00 AM Nerve conduction studies with F-wave Reviewed 08/26/2013 12:00 AM MAMMOGRAM SCREENING Reviewed 08/26/2013 12:00 AM MAMMOGRAM SCREENING Reviewed 08/30/2013 12:00 AM THER/PROPH/DIAG INJ SC/IM Reviewed 08/30/2013 12:00 AM Decadron, Per 1 Mg ND# [address]-10 Reviewed 08/30/2013 12:00 AM Depo-Medrol, Per 80 Mg ND#1409-8842-63 Reviewed 11/17/2013 12:00 AM THER/PROPH/DIAG INJ SC/IM Reviewed 11/17/2013 12:00 AM Decadron, Per 1 Mg ND# [address]-05 Reviewed 11/17/2013 12:00 AM Depo-Medrol 40mg Reviewed 01/06/2014 12:00 AM THER/PROPH/DIAG INJ SC/IM Reviewed 01/06/2014 12:00 AM Decadron, Per 1 Mg ND# [address]-40 Reviewed 01/06/2014 12:00 AM Rocephin 1 gram [facility]#8976-7865-28 Reviewed 01/10/2014 12:00 AM OFFICE/OUTPATIENT VISIT EST [...] 1 Mg [facility]# [address]-39 Reviewed 10/12/2014 12:00 AM Depo-Medrol 40mg Reviewed [...] Small History Of Immunizations Name Date Admin [facility] Name Mf Code Trade Name Lot# Route Inj Vis Given Vis Pub CVX Influenza 03/02/2013 sanofi pasteur PMC Fluzone [id number] Intramuscular Left Deltoid 03/02/2013 12/17/2012 141 X 02/28/2014 Merck & Co., Inc. 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 Sep 01 2012 4:05PM Wrist [...] 1:26PM Thumb tendonitis Jun 05 2016 3:14PM Payers Insurance Name Company Name Plan Name Plan Number Policy Number Policy Group Number Start Date [employer] [place] [id number] N/A [employer] [place] [id number] Saturday, 2011 [employer] [place] [id number] N/A [employer] [place] [id number] Thursday, 2013 [facility] UMR [id number] N/A [facility] [employer] [facility] [id number] N/A [employer] [place] [id number] N/A [facility] [employer] [id number] N/A [employer] [id number] N/A [employer] [id number] DOI [id number] May History of Encounters Visit Date Visit Type Provider 06/11/2016 Office visit Chelsea Rodríguez APRN 06/05/2016 Office visit Leonardo Cowan APRN 05/14/2016 Office visit Chelsea Rodríguez APRN 05/05/2016 Office visit Leonardo Cowan APRN 04/24/2016 Office visit Chelsea Rodríguez APRN 04/07/2016 Office visit Chelsea Rodríguez APRN 03/04/2016 Office visit Chelsea Rodríguez [employer] 01/14/2016 Office visit Chelsea Rodríguez [employer] 01/09/2016 Office visit Leonardo Cowan [employer] 01/04/2016 Office visit Leonardo Cowan [employer] 11/27/2015 Office visit Chelsea Rodríguez [employer] 08/23/2015 Office visit Chelsea Rodríguez [employer] 07/19/2015 Office visit 07/19/2015 Office visit Chelsea Rodríguez [employer] 06/21/2015 Office visit Chelsea Rodríguez [employer] 05/03/2015 Nurse visit Adela Cole GRINDING MACHINE OPERATOR 04/12/2015 Office visit Adela Cole GRINDING MACHINE OPERATOR 03/23/2015 Office visit Chelsea Rodríguez [employer] 03/08/2015 Office visit Adela Cole GRINDING MACHINE OPERATOR 02/14/2015 Office visit Leonardo Pazran [employer] 02/08/2015 Office visit Adela Cole GRINDING MACHINE OPERATOR 02/07/2015 Office visit Leonardo Cowan [employer] 01/11/2015 Office visit Adela Cole GRINDING MACHINE OPERATOR 12/28/2014 Office visit Chelsea Rodríguez [employer] 12/14/2014 Nurse visit Adela PITTMANP 11/23/2014 Nurse visit Adela PITTMANP 10/26/2014 Office visit Adela PITTMANP 10/12/2014 Office visit 10/12/2014 Office visit Chelsea Rodríguez [employer] 10/05/2014 Nurse visit Adela PITTMANP 09/07/2014 Office visit Adela PITTMANP 08/17/2014 Office visit 08/17/2014 Office visit 08/17/2014 Office visit Chelsea Rodríguez [employer] 08/14/2014 Office visit Adela PITTMANP 07/27/2014 Office visit Adela PITTMANP 2014 Office visit Adela PITTMANP 2014 Office visit Mica Lr [employer] 06/28/2014 Nurse visit Adela PITTMANP 05/31/2014 Office visit Adela PITTMANP 05/03/2014 Voided Adela PITTMANP 04/26/2014 Office visit Mica Lr [employer] 04/05/2014 Office visit Adela PITTMANP 03/10/2014 Office visit Adela PITTMANP 02/28/2014 Office visit Mica Lr [employer] 02/24/2014 Office visit Adela PITTMANP 02/06/2014 Office visit Adela Cole GRINDING MACHINE OPERATOR 01/10/2014 Nurse visit Suzan Liang MD 01/06/2014 Office visit Mica Lr [employer] 12/15/2013 Office visit Adela Cole GRINDING MACHINE OPERATOR 11/17/2013 Office visit Chelsea Marcos [employer] 11/17/2013 Office visit Adela Cole GRINDING MACHINE OPERATOR 10/20/2013 Office visit Adela Cole GRINDING MACHINE OPERATOR 09/22/2013 Office visit Adela Cole GRINDING MACHINE OPERATOR 08/30/2013 Office visit Chelsea Marcos [employer] 08/26/2013 Office visit Beti Reyna [employer] 07/29/2013 Office visit Adela Cole GRINDING MACHINE OPERATOR 07/06/2013 [facility] Elmira Campbell MD 07/01/2013 Office visit Adela Cole GRINDING MACHINE OPERATOR 06/06/2013 Office visit Adela Cole GRINDING MACHINE OPERATOR 05/31/2013 Office visit Chelsea Rodríguez [employer] 05/11/2013 Office visit Adela Cloe GRINDING MACHINE OPERATOR 03/22/2013 Office visit Adela Cole GRINDING MACHINE OPERATOR 03/10/2013 Office visit Adela Cole GRINDING MACHINE OPERATOR 03/04/2013 Office visit Adela PITTMANP 03/02/2013 Office visit Odette Elam MD 02/22/2013 Office visit Adela PITTMANP 01/28/2013 Office visit Chelsea Rodríguez [employer] 01/25/2013 Office visit Adela PITTMANP 12/27/2012 Office visit Adela PITTMANP 12/07/2012 [facility] Pablo Croft MD 11/24/2012 Office visit Pablo Croft MD 11/02/2012 Office visit Kylah Wright [employer] 11/02/2012 Office visit Mica Lr [employer] 10/05/2012 [facility] Pablo Croft MD 09/30/2012 Office visit Kylah Wright [employer] 09/01/2012 Office visit Kylah Wright [employer] 07/21/2012 Office visit Odette Elam MD 06/16/2012 [...]
--- OUTSIDE RECORDS SUMMARY | 2018-02-14 12:27 | XMS REPORT ---
Author Author Adela Cole [facility] Address [address] [place], [place] [address] Care Team Providers Care Grinder Setup Operator Name Role Phone Adela Cole PCP [...] oral route once daily for 30 days [place] 10-325 mg oral tablet 02/08/2015 03/10/2015 take [...] HC BMI BSA BMI Percentile O2 Sat(%) 02/08/2015 1:01:00 PM 116 mmHg 70 mmHg [...] F 145 lbs 70 in 20.8051 kg/m 1.80 m2 08/15/2011 3:21:00 PM 120 mmHg 79 mmHg 76 bpm 97.4 F 148.5 lbs 70 in 21.31 kg/m2 1.8239 m 07/14/2011 11:11:00 AM 128 mmHg 82 mmHg 70 bpm 98.3 F 156 lbs 70 in 22.3834 kg/m 1.87 m2 06/26/2011 9:34:00 AM 114 mmHg 82 mmHg 83 bpm 16 rpm 97.7 F 158.5 lbs 70 in 22.74 kg/m2 1.8844 m 98 % 06/24/2011 4:01:00 PM 124 mmHg 77 mmHg 77 bpm 97.6 F 162 lbs 68.5 in 24.2735 kg/m 1.88 m2 Social History Name Description Comments Tobacco Current some day smoker Alcohol Use - Rare Children at home age 14 Lives with spouse in a house bachelors degree College graduate 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[employer] Did not [...] and screen Returned 10/29/2011 12:00 AM CYSTOMETROGRAM W/CURATOR OF COLLECTIONS&UP Reviewed 10/29/2011 12:00 AM ELECTRO-UROFLOWMETRY FIRST Reviewed 10/29/2011 12:00 AM INTRAABDOMINAL PRESSURE TEST Reviewed 11/12/2011 12:00 AM X-RAY URETHRA/BLADDER Reviewed 11/12/2011 12:00 AM X-RAY EXAM SI JOINTS 3/> VWS Reviewed 01/28/2012 12:00 AM MRI LUMBAR SPINE W/O DYE Returned 04/20/2012 12:00 AM THER/PROPH/DIAG INJ SC/IM Reviewed 04/20/2012 12:00 AM Depo-Medrol, Per 120 Mg [facility]#6426-3456-58 Reviewed 07/21/2012 12:00 AM THER/PROPH/DIAG INJ SC/IM Reviewed 07/21/2012 12:00 AM Depo-Medrol, Per 120 Mg [facility]#4347-8636-48 Reviewed 09/01/2012 12:00 AM Drug Screen (Non-Medicare) Reviewed 09/01/2012 12:00 AM Kenalog, Per 10 Mg [facility]#3399-6203-60 Reviewed 11/02/2012 12:00 AM Norflex, Up to 60 Mg [facility]#62238-667-21 Reviewed 11/02/2012 12:00 AM INJ TRIGGER POINT 1/2 MUSCL Reviewed 11/02/2012 12:00 AM Bupivicaine, 30 ml [facility]#8364-4748-98 Reviewed 11/02/2012 12:00 AM THER/PROPH/DIAG INJ SC/IM Reviewed 11/02/2012 12:00 AM Norflex, Up to 60 Mg [facility]#64083-825-69 Reviewed 12/27/2012 12:00 AM COMPLETE CBC W/AUTO DIFF WBC Returned 12/27/2012 12:00 AM COMPREHEN METABOLIC PANEL Returned 12/27/2012 12:00 AM ASSAY THYROID STIM HORMONE Returned 12/27/2012 12:00 AM VITAMIN B-12 Returned 12/27/2012 12:00 AM ASSAY OF FERRITIN Returned 12/27/2012 12:00 AM ANTINUCLEAR ANTIBODIES Reviewed 12/27/2012 12:00 AM DNA ANTIBODY LAC COURTE OREILLES Reviewed 12/27/2012 12:00 AM NUCLEAR ANTIGEN ANTIBODY [...] 12:00 AM Decadron, Per 1 Mg ND# [address]-98 Reviewed 05/31/2013 12:00 AM Depo-Medrol, Per 80 Mg ND#3431-5176-87 Reviewed 05/31/2013 12:00 AM THER/PROPH/DIAG INJ SC/IM Reviewed 06/06/2013 12:00 AM MUSCLE TEST 2 LIMBS Reviewed 06/06/2013 12:00 AM Nerve conduction studies with F-wave Reviewed 08/26/2013 12:00 AM MAMMOGRAM SCREENING Returned 08/26/2013 12:00 AM MAMMOGRAM SCREENING Reviewed 08/30/2013 12:00 AM THER/PROPH/DIAG INJ SC/IM Reviewed 08/30/2013 12:00 AM Decadron, Per 1 Mg ND# [address]-24 Reviewed 08/30/2013 12:00 AM Depo-Medrol, Per 80 Mg [facility]#6076-9668-57 Reviewed 11/17/2013 12:00 AM THER/PROPH/DIAG INJ SC/IM Reviewed 11/17/2013 12:00 AM Decadron, Per 1 Mg [facility]# [address]-21 Reviewed 11/17/2013 12:00 AM Depo-Medrol 40mg Reviewed 01/06/2014 12:00 AM THER/PROPH/DIAG INJ SC/IM Reviewed 01/06/2014 12:00 AM Decadron, Per 1 Mg ND# [address]-07 Reviewed 01/06/2014 12:00 AM Rocephin 1 gram [facility]#5958-2057-87 Reviewed 01/10/2014 12:00 AM OFFICE/OUTPATIENT VISIT EST [...] 10/12/2014 12:00 AM Decadron, Per 1 Mg [facility]# [address]-22 Reviewed 10/12/2014 12:00 AM Depo-Medrol 40mg Reviewed [...] CVX Influenza 03/02/2013 sanofi pasteur PMC Fluzone [id number] Intramuscular Left Deltoid 03/02/2013 12/17/2012 141 Pneumococcal 02/28/2014 Merck & Co., Inc. 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 UMR [id number] N/A [facility] [employer] [facility] [id number] N/A [employer] [place] [id number] Saturday, 2011 [employer] [place] [id number] N/A [employer] [place] [id number] Thursday, 2013 History of Encounters Visit Date Visit Type Provider 02/08/2015 Office visit Adela PORTER 02/07/2015 Office [...] Office visit Adela PORTER 05/03/2014 Voided Adela Cole WHISKEY REGAUGER 04/26/2014 Office visit Micawillian Lr CLINICAL MOLECULAR GENETICIST 04/05/2014 Office visit Adela Cole WHISKEY REGAUGER 03/10/2014 Office visit Adela JonhsonMarcus Douglas WHISKEY REGAUGER 02/28/2014 Office visit Mica Lr CLINICAL MOLECULAR GENETICIST 02/24/2014 Office visit Adela Cole WHISKEY REGAUGER 02/06/2014 Office visit Adela JohnsonMarcus Douglas WHISKEY REGAUGER 01/10/2014 Nurse visit Suzan Liang MD 01/06/2014 Office visit Mica Lr CLINICAL MOLECULAR GENETICIST 12/15/2013 Office visit Adelacatherine Cole WHISKEY REGAUGER 11/17/2013 Office visit Chelsea Rodríguez CLINICAL MOLECULAR GENETICIST 11/17/2013 Office visit Adela JohnsonMarcus Douglas WHISKEY REGAUGER 10/20/2013 Office visit Adela Cole WHISKEY REGAUGER 09/22/2013 Office visit Adela JohnsonMarcus Douglas WHISKEY REGAUGER 08/30/2013 Office visit Chelsea Rodríguez CLINICAL MOLECULAR GENETICIST 08/26/2013 Office visit Beti Reyna CLINICAL MOLECULAR GENETICIST 07/29/2013 Office visit Adela Cole WHISKEY REGAUGER 07/06/2013 [facility] Elmira Campbell MD 07/01/2013 Office visit Adela M. Douglas WHISKEY REGAUGER 06/06/2013 Office visit Adela M. Douglas WHISKEY REGAUGER 05/31/2013 Office visit Chelsea Marcos CLINICAL MOLECULAR GENETICIST 05/11/2013 Office visit Adela Cole WHISKEY REGAUGER 03/22/2013 Office visit Adela Cole WHISKEY REGAUGER 03/10/2013 Office visit Adela JohnsonMarcus Douglas WHISKEY REGAUGER 03/04/2013 Office visit Adela Cole WHISKEY REGAUGER 03/02/2013 Office visit Odette Elam MD 02/22/2013 Office visit Adela Cole WHISKEY REGAUGER 01/28/2013 Office visit Chelsea Rodríguez CLINICAL MOLECULAR GENETICIST 01/25/2013 Office visit Adela Cole WHISKEY REGAUGER 12/27/2012 Office visit Adela Cole WHISKEY REGAUGER 12/07/2012 [facility] Pablo Croft MD 11/24/2012 Office visit Pablo Croft MD 11/02/2012 Office visit Kylah Wright CLINICAL MOLECULAR GENETICIST 11/02/2012 Office visit Mica Lr CLINICAL MOLECULAR GENETICIST 10/05/2012 [facility] Pablo Croft MD 09/30/2012 Office visit Kylah Wright CLINICAL MOLECULAR GENETICIST 09/01/2012 Office visit Kylah Wright CLINICAL MOLECULAR GENETICIST 07/21/2012 Office visit Odette Elam MD 06/16/2012 Office visit Pablo Croft MD 05/11/2012 [facility] Pablo Croft MD 04/28/2012 Office visit Pablo Croft MD 04/20/2012 Office visit Odette Elam MD 03/29/2012 Office visit Pablo Croft MD 03/16/2012 [facility] Pablo Croft MD 03/09/2012 [facility] Pablo Croft MD 02/24/2012 [facility] Pablo Croft MD 02/11/2012 Office visit Pablo Croft MD 01/28/2012 Office visit Pablo Croft MD 01/19/2012 Office visit Odette Elam MD 12/03/2011 Office visit Reji Bowens MD 11/12/2011 Office visit Alison Antoine APRN 10/28/2011 Procedures Reji Bowens MD 10/07/2011 Office visit Odette Elam MD 09/04/2011 Surgery Reji Bowens MD 08/15/2011 Surgery Reji Bowens MD 07/22/2011 [facility] Naveen Aguilar MD 07/22/2011 [facility] Reji Bowens MD 07/14/2011 Surgery Reji Bowens MD 06/26/2011 Office visit Odette Elam MD 06/24/2011 Office visit Reji Bowens MD 12/04/2010 [facility] Asha Church MD
--- OUTSIDE RECORDS SUMMARY | 2018-02-14 12:29 | XMS REPORT ---
Author Author Chelsea Rodríguez Organization [facility] Address [address] [place], [place] [id number] Care Team Providers Care Viscosity Inspector Name Role Phone Chelsea Rodríguez PCP Unavailable [...] TAKE 1 TABLET BY MOUTH ONCE DAILY Cymbalta 60 mg oral capsule,delayed release(DR/EC) 07/19/2015 10/17/2015 take 1 capsule (60 mg) by oral route once daily for 30 days Belsomra 5 mg oral tablet 07/19/2015 take 1 tablet (5 mg) by oral route once per night within 30 minutes of bedtime. Take only if at least 7 hrs of bedtime remain before planned time of waking. Name Start Date Expiration Date SIG Comments [...] then Take 1 tab x 2 days. 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 History of [...] and screen Returned 10/29/2011 12:00 AM CYSTOMETROGRAM W/PHYSICIAN NON INVASIVE CARDIOLOGIST&UP Reviewed 10/29/2011 12:00 AM ELECTRO-UROFLOWMETRY FIRST Reviewed 10/29/2011 12:00 AM INTRAABDOMINAL PRESSURE TEST Reviewed 11/12/2011 12:00 AM X-RAY URETHRA/BLADDER Reviewed 11/12/2011 12:00 AM X-RAY EXAM SI JOINTS 3/> VWS Reviewed 01/28/2012 12:00 AM MRI LUMBAR SPINE W/O DYE Returned 04/20/2012 12:00 AM THER/PROPH/DIAG INJ SC/IM Reviewed 04/20/2012 12:00 AM Depo-Medrol, Per 120 Mg [facility]#1248-0191-29 Reviewed 07/21/2012 12:00 AM THER/PROPH/DIAG INJ SC/IM Reviewed 07/21/2012 12:00 AM Depo-Medrol, Per 120 Mg [facility]#1933-69[address]-93 Reviewed 09/01/2012 12:00 AM Drug Screen (Non-Medicare) Reviewed 09/01/2012 12:00 AM Kenalog, Per 10 Mg [facility]#2513-5434-36 Reviewed 11/02/2012 12:00 AM Norflex, Up to 60 Mg [facility]#11519-412-81 Reviewed 11/02/2012 12:00 AM INJ TRIGGER POINT 1/2 MUSCL Reviewed 11/02/2012 12:00 AM Bupivicaine, 30 ml [facility]#6286-9386-54 Reviewed 11/02/2012 12:00 AM THER/PROPH/DIAG INJ SC/IM Reviewed 11/02/2012 12:00 AM Norflex, Up to 60 Mg [facility]#03218-410-14 Reviewed 12/27/2012 12:00 AM COMPLETE CBC W/AUTO DIFF WBC Returned 12/27/2012 12:00 AM COMPREHEN METABOLIC PANEL Returned 12/27/2012 12:00 AM ASSAY THYROID STIM HORMONE Returned 12/27/2012 12:00 AM VITAMIN B-12 Returned 12/27/2012 12:00 AM ASSAY OF FERRITIN Returned 12/27/2012 12:00 AM ANTINUCLEAR ANTIBODIES Reviewed 12/27/2012 12:00 AM DNA ANTIBODY POINT LAY IRA Reviewed 12/27/2012 12:00 AM NUCLEAR ANTIGEN ANTIBODY [...] 12:00 AM Decadron, Per 1 Mg ND# [address]-06 Reviewed 05/31/2013 12:00 AM Depo-Medrol, Per 80 Mg ND#8197-6728-23 Reviewed 05/31/2013 12:00 AM THER/PROPH/DIAG INJ SC/IM Reviewed 06/06/2013 12:00 AM MUSCLE TEST 2 LIMBS Reviewed 06/06/2013 12:00 AM Nerve conduction studies with F-wave Reviewed 08/26/2013 12:00 AM MAMMOGRAM SCREENING Returned 08/26/2013 12:00 AM MAMMOGRAM SCREENING Reviewed 08/30/2013 12:00 AM THER/PROPH/DIAG INJ SC/IM Reviewed 08/30/2013 12:00 AM Decadron, Per 1 Mg ND# [address]-54 Reviewed 08/30/2013 12:00 AM Depo-Medrol, Per 80 Mg ND#9952-2832-70 Reviewed 11/17/2013 12:00 AM THER/PROPH/DIAG INJ SC/IM Reviewed 11/17/2013 12:00 AM Decadron, Per 1 Mg ND# [address]-93 Reviewed 11/17/2013 12:00 AM Depo-Medrol 40mg Reviewed 01/06/2014 12:00 AM THER/PROPH/DIAG INJ SC/IM Reviewed 01/06/2014 12:00 AM Decadron, Per 1 Mg ND# [address]-45 Reviewed 01/06/2014 12:00 AM Rocephin 1 gram [facility]#0947-2166-05 Reviewed 01/10/2014 12:00 AM OFFICE/OUTPATIENT VISIT EST [...] 10/12/2014 12:00 AM Decadron, Per 1 Mg [facility]# [address]-34 Reviewed 10/12/2014 12:00 AM Depo-Medrol 40mg Reviewed [...] CVX Influenza 03/02/2013 sanofi pasteur PMC Fluzone [id number] Intramuscular Left Deltoid 03/02/2013 12/17/2012 141 Pneumococcal 02/28/2014 Merck & Co., Inc. MSD Pneumovax 23 [id number] Intramuscular Left Deltoid 02/28/2014 02/27/2009 33 Influenza 03/23/2015 [employer] pasteur PMC Fluzone Quadrivalent [id number] Intramuscular Right Deltoid 03/23/2015 12/29/2014 140 History [...] 3 2013 3:35PM Anxiety Disorder Jan 6 2013 8:51AM Radiculopathy, lumbosacral Feb 22 [...] 2015 11:36AM Sacroiliitis Jul 19 2015 11:36AM Payers Insurance Name Company Name Plan Name Plan Number Policy Number Policy Group Number Start Date R UMR [id number] N/A [employer] Braums [id number] N/A [employer] [place] [id number] Saturday, 2011 [employer] [place] [id number] N/A [employer] [place] [id number] Thursday, 2013 History of Encounters Visit Date Visit Type Provider 07/19/2015 Office visit 07/19/2015 Office visit Chelsea [...] visit Adela PORTER 2014 Office visit Adela Cole BOTANY PROFESSOR 2014 Office visit Mica Lr FINISH SANDER 06/28/2014 Nurse visit Adela AlexMarcus Cole BOTANY PROFESSOR 05/31/2014 Office visit Adela Manjit Douglas BOTANY PROFESSOR 05/03/2014 Voided Adela Cole BOTANY PROFESSOR 04/26/2014 Office visit Mica Lr FINISH SANDER 04/05/2014 Office visit Adela Cole BOTANY PROFESSOR 03/10/2014 Office visit Adela Manjit Dogulas BOTANY PROFESSOR 02/28/2014 Office visit Mica Lr FINISH SANDER 02/24/2014 Office visit Adela Cole BOTANY PROFESSOR 02/06/2014 Office visit Adela JohnsonMarcus Douglas BOTANY PROFESSOR 01/10/2014 Nurse visit Suzan Liang MD 01/06/2014 Office visit Mica NMarcus Be FINISH SANDER 12/15/2013 Office visit Adela MMarcus Cole BOTANY PROFESSOR 11/17/2013 Office visit Chelsea Rodríguez FINISH SANDER 11/17/2013 Office visit Adela Cole BOTANY PROFESSOR 10/20/2013 Office visit Adela Cole BOTANY PROFESSOR 09/22/2013 Office visit Adela Cole BOTANY PROFESSOR 08/30/2013 Office visit Chelsea Rodríguez FINISH SANDER 08/26/2013 Office visit Beti Reyna FINISH SANDER 07/29/2013 Office visit Adela Cole BOTANY PROFESSOR 07/06/2013 Procedures Elmira Campbell MD 07/01/2013 Office visit Adela Cole BOTANY PROFESSOR 06/06/2013 Office visit Adela Cole BOTANY PROFESSOR 05/31/2013 Office visit Chelsea Rodríguez FINISH SANDER 05/11/2013 Office visit Adela Cole BOTANY PROFESSOR 03/22/2013 Office visit Adela Cole BOTANY PROFESSOR 03/10/2013 Office visit dAela Cole BOTANY PROFESSOR 03/04/2013 Office visit Adela Cole BOTANY PROFESSOR 03/02/2013 Office visit Odette Elam MD 02/22/2013 Office visit Adela Cole BOTANY PROFESSOR 01/28/2013 Office visit Chelsea Rodríguez FINISH SANDER 01/25/2013 Office visit Adela Cole BOTANY PROFESSOR 12/27/2012 Office visit Adela Cole BOTANY PROFESSOR 12/07/2012 [facility] Pablo Croft MD 11/24/2012 Office visit Pablo Croft MD 11/02/2012 Office visit Kylah Wright FINISH SANDER 11/02/2012 Office visit Mica Lr FINISH SANDER 10/05/2012 [facility] Pablo Croft MD 09/30/2012 Office visit Kylah Wright FINISH SANDER 09/01/2012 Office visit Kylah Wright FINISH SANDER 07/21/2012 Office visit Odette Elam MD 06/16/2012 [...] Bowens MD 11/12/2011 Office visit Alison Antoine FINISH SANDER 10/28/2011 Procedures Reji Bowens MD 10/07/2011 Office visit Odette Elam MD 09/04/2011 Surgery Reji Bowens MD 08/15/2011 Surgery Reji Bowens MD 07/22/2011 [facility] Naveen Aguilar MD 07/22/2011 [facility] Reji Bowens MD 07/14/2011 Surgery Reji Bowens MD 06/26/2011 Office visit Odette Elam MD 06/24/2011 Office visit Reji Bowens MD 12/04/2010 [facility] Asha Church MD
--- OUTSIDE RECORDS SUMMARY | 2018-02-14 12:32 | XMS REPORT ---
Author Dimitri Antoine [facility] Address [address] [place], [place] [address] Care Team Providers Care Valet Runner Name Role Phone Dimitri Beebe PCP Unavailable [...] then Take 1 tab x 2 days. 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 [...] Per 1 Mg [facility]# [address]-72 Reviewed 11/27/2015 12:00 AM Depo-Medrol 40mg Reviewed [...] AM Toradol 60 Mg [facility]#0011-5023-87 Reviewed 06/11/2016 12:00 AM Consult/Referral Reviewed 06/11/2016 2:41 PM URINALYSIS AUTO W/O SCOPE Reviewed 06/11/2016 12:00 AM URINE CULTURE/COLONY COUNT Reviewed 06/13/2016 12:00 AM Splint, prefabricated, wrist or ankle Reviewed 07/31/2016 12:00 AM LIPID PANEL Reviewed 07/31/2016 12:00 AM MAMMOGRAPHY SCREENING, DIGITAL Reviewed 10/29/2011 12:00 AM CYSTOMETROGRAM W/CHURCH SECRETARY&UP Reviewed 10/29/2011 12:00 AM ELECTRO-UROFLOWMETRY FIRST Reviewed 10/29/2011 12:00 AM INTRAABDOMINAL PRESSURE TEST Reviewed 11/12/2011 12:00 AM X-RAY URETHRA/BLADDER Reviewed 11/12/2011 12:00 AM X-RAY EXAM SI JOINTS 3/> VWS Reviewed 01/28/2012 12:00 AM MRI LUMBAR SPINE W/O DYE Reviewed 04/20/2012 12:00 AM THER/PROPH/DIAG INJ SC/IM Reviewed 04/20/2012 12:00 AM Depo-Medrol, Per 120 Mg [facility]#5500-0607-36 Reviewed 07/21/2012 12:00 AM THER/PROPH/DIAG INJ SC/IM Reviewed 07/21/2012 12:00 AM Depo-Medrol, Per 120 Mg [facility]#4250-8339-67 Reviewed 09/01/2012 12:00 AM Drug Screen (Non-Medicare) Reviewed 09/01/2012 12:00 AM DRAIN/INJ JOINT/BURSA W/O US Reviewed 09/01/2012 12:00 AM Kenalog, Per 10 Mg [facility]#8531-2880-33 Reviewed 11/02/2012 12:00 AM Norflex, Up to 60 Mg [facility]#29844-122-06 Reviewed 11/02/2012 12:00 AM INJ TRIGGER POINT 1/2 MUSCL Reviewed 11/02/2012 12:00 AM Bupivicaine, 30 ml [facility]#6375-1291-26 Reviewed 11/02/2012 12:00 AM THER/PROPH/DIAG INJ SC/IM Reviewed 11/02/2012 12:00 AM Norflex, Up to 60 Mg [facility]#69577-456-31 Reviewed 12/27/2012 12:00 AM COMPLETE CBC W/AUTO DIFF WBC Reviewed 12/27/2012 12:00 AM COMPREHEN METABOLIC PANEL Reviewed 12/27/2012 12:00 AM ASSAY THYROID STIM HORMONE Reviewed 12/27/2012 12:00 AM VITAMIN B-12 Reviewed 12/27/2012 12:00 AM ASSAY OF FERRITIN Reviewed 12/27/2012 12:00 AM ANTINUCLEAR ANTIBODIES Reviewed 12/27/2012 12:00 AM DNA ANTIBODY [place] Reviewed 12/27/2012 12:00 AM NUCLEAR ANTIGEN ANTIBODY [...] 05/31/2013 12:00 AM Decadron, Per 1 Mg [facility]# [address]-57 Reviewed 05/31/2013 12:00 AM Depo-Medrol, Per 80 Mg ND#9736-2182-45 Reviewed 05/31/2013 12:00 AM THER/PROPH/DIAG INJ SC/IM Reviewed 06/06/2013 12:00 AM MUSCLE TEST 2 LIMBS Reviewed 06/06/2013 12:00 AM Nerve conduction studies with F-wave Reviewed 08/26/2013 12:00 AM MAMMOGRAM SCREENING Reviewed 08/26/2013 12:00 AM MAMMOGRAM SCREENING Reviewed 08/30/2013 12:00 AM THER/PROPH/DIAG INJ SC/IM Reviewed 08/30/2013 12:00 AM Decadron, Per 1 Mg ND# [address]-19 Reviewed 08/30/2013 12:00 AM Depo-Medrol, Per 80 Mg [facility]#6044-3430-41 Reviewed 11/17/2013 12:00 AM THER/PROPH/DIAG INJ SC/IM Reviewed 11/17/2013 12:00 AM Decadron, Per 1 Mg ND# [address]-77 Reviewed 11/17/2013 12:00 AM Depo-Medrol 40mg Reviewed 01/06/2014 12:00 AM THER/PROPH/DIAG INJ SC/IM Reviewed 01/06/2014 12:00 AM Decadron, Per 1 Mg [facility]# [address]-95 Reviewed 01/06/2014 12:00 AM Rocephin 1 gram [facility]#7387-3247-26 Reviewed 01/10/2014 12:00 AM OFFICE/OUTPATIENT VISIT EST [...] Per 1 Mg [facility]# [address]-51 Reviewed 10/12/2014 12:00 AM Depo-Medrol 40mg Reviewed [...] CVX Influenza 03/02/2013 sanofi pasteur PMC Fluzone [id number] Intramuscular Left Deltoid 03/02/2013 12/17/2012 141 X 02/28/2014 Merck & Co., Inc[employer] 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 01 2012 4:05PM Wrist [...] Policy Group Number Start Date BCBS Bcbs [facility] [id number] N/A [employer] [place] [id number] Saturday, 2011 [employer] [place] [id number] N/A [employer] [place] [id number] Thursday, 2013 UMR UMR [id number] N/A [employer] [id number] N/A [employer] [place] [id number] N/A [facility] Care [employer] [id number] N/A [employer] [id number] N/A [employer] [id number] DOI [id number] May [employer] [place] [id number] N/A History of Encounters Visit Date Visit Type Provider 01/31/2017 Office visit Dimitri Beebe NP 11/20/2016 Office visit Chelsea Rodríguez FORCE ADJUSTMENT SUPERVISOR 08/29/2016 Office visit Chelsea Rodríguez FORCE ADJUSTMENT SUPERVISOR 07/31/2016 Office visit Chelsea Rodríguez FORCE ADJUSTMENT SUPERVISOR 06/11/2016 Office visit Chelsea Rodríguez FORCE ADJUSTMENT SUPERVISOR 06/05/2016 Office visit Leonardo Cowan FORCE ADJUSTMENT SUPERVISOR 05/14/2016 Office visit Chelsea Rodríguez FORCE ADJUSTMENT SUPERVISOR 05/05/2016 Office visit Leonardo Cowan FORCE ADJUSTMENT SUPERVISOR 04/24/2016 Office visit Chelsea Rodríguez FORCE ADJUSTMENT SUPERVISOR 04/07/2016 Office visit Chelsea Rodríguez FORCE ADJUSTMENT SUPERVISOR 03/04/2016 Office visit Chelsea Rodríguez FORCE ADJUSTMENT SUPERVISOR 01/14/2016 Office visit Chelsea Rodríguez FORCE ADJUSTMENT SUPERVISOR 01/09/2016 Office visit Leonardo Cowan FORCE ADJUSTMENT SUPERVISOR 01/04/2016 Office visit Leonardo Cowan FORCE ADJUSTMENT SUPERVISOR 11/27/2015 Office visit Chelsea Rodríguez FORCE ADJUSTMENT SUPERVISOR 08/23/2015 Office visit Chelsea Rodríguez FORCE ADJUSTMENT SUPERVISOR 07/19/2015 Office visit 07/19/2015 Office visit Chelsea Rodríguez FORCE ADJUSTMENT SUPERVISOR 06/21/2015 Office visit Chelsea Rodríguez FORCE ADJUSTMENT SUPERVISOR 05/03/2015 Nurse visit Adela PORTER 04/12/2015 Office visit Adela PORTER 03/23/2015 Office visit Chelsea Rodríguez APRN 03/08/2015 Office visit Adela PORTER 02/14/2015 Office visit Leonardo Cowan APRN 02/08/2015 Office visit Adela PORTER 02/07/2015 Office visit Leonardo Cowan APRN 01/11/2015 Office visit Adela PORTER 12/28/2014 Office visit Chelsea Rodríguez APRN 12/14/2014 Nurse visit Adela PORTER 11/23/2014 Nurse visit Adela Cole DISPENSING OPTICIAN 10/26/2014 Office visit Adela Cole DISPENSING OPTICIAN 10/12/2014 Office visit 10/12/2014 Office visit Chelsea Rodríguez FORCE ADJUSTMENT SUPERVISOR 10/05/2014 Nurse visit Adela Cole DISPENSING OPTICIAN 09/07/2014 Office visit Adela Cole DISPENSING OPTICIAN 08/17/2014 Office visit 08/17/2014 Office visit 08/17/2014 Office visit Chelsea Rodríguez FORCE ADJUSTMENT SUPERVISOR 08/14/2014 Office visit Adela Cole DISPENSING OPTICIAN 07/27/2014 Office visit Adela Cole DISPENSING OPTICIAN 2014 Office visit Adela Cole DISPENSING OPTICIAN 2014 Office visit Mica Lr FORCE ADJUSTMENT SUPERVISOR 06/28/2014 Nurse visit Adela Cole DISPENSING OPTICIAN 05/31/2014 Office visit Adela PITTMANP 05/03/2014 Voided Adela Cole DISPENSING OPTICIAN 04/26/2014 Office visit Mica Lr FORCE ADJUSTMENT SUPERVISOR 04/05/2014 Office visit Adela Cole DISPENSING OPTICIAN 03/10/2014 Office visit Adela PITTMANP 02/28/2014 Office visit Mica Lr FORCE ADJUSTMENT SUPERVISOR 02/24/2014 Office visit Adela PITTMANP 02/06/2014 Office visit Adela PITTMANP 01/10/2014 Nurse visit Suzan Liang MD 01/06/2014 Office visit Mica Lr FORCE ADJUSTMENT SUPERVISOR 12/15/2013 Office visit Adela Cole DISPENSING OPTICIAN 11/17/2013 Office visit Chelsea Rodríguez FORCE ADJUSTMENT SUPERVISOR 11/17/2013 Office visit Adela Cole DISPENSING OPTICIAN 10/20/2013 Office visit Adela Cole DISPENSING OPTICIAN 09/22/2013 Office visit Adela PITTMANP 08/30/2013 Office visit Chelsea Marcos FORCE ADJUSTMENT SUPERVISOR 08/26/2013 Office visit Beti Reyna FORCE ADJUSTMENT SUPERVISOR 07/29/2013 Office visit Adela Cole DISPENSING OPTICIAN 07/06/2013 Procedures Elmira Campbell MD 07/01/2013 Office visit Adela Cole DISPENSING OPTICIAN 06/06/2013 Office visit Adela Cole DISPENSING OPTICIAN 05/31/2013 Office visit Chelsea Marcos FORCE ADJUSTMENT SUPERVISOR 05/11/2013 Office visit Adela Cole DISPENSING OPTICIAN 03/22/2013 Office visit Adela Cole DISPENSING OPTICIAN 03/10/2013 Office visit Adelacatherine Cole DISPENSING OPTICIAN 03/04/2013 Office visit Adela Manjit Douglas DISPENSING OPTICIAN 03/02/2013 Office visit Odette Elam MD 02/22/2013 Office visit Adela M. Douglas DISPENSING OPTICIAN 01/28/2013 Office visit Chelsea Rodríguez FORCE ADJUSTMENT SUPERVISOR 01/25/2013 Office visit Adelacatherine Cole DISPENSING OPTICIAN 12/27/2012 Office visit Adela Cole DISPENSING OPTICIAN 12/07/2012 [facility] Pablo Croft MD 11/24/2012 Office visit Pablo Croft MD 11/02/2012 Office visit Klyah Wright FORCE ADJUSTMENT SUPERVISOR 11/02/2012 Office visit Mica Lr FORCE ADJUSTMENT SUPERVISOR 10/05/2012 [facility] Pablo Croft MD 09/30/2012 Office visit Kylah Wright FORCE ADJUSTMENT SUPERVISOR 09/01/2012 Office visit Kylah Wright FORCE ADJUSTMENT SUPERVISOR 07/21/2012 Office visit Odette Elam MD 06/16/2012 Office visit Pablo Croft MD 05/11/2012 [facility] Pablo Croft MD 04/28/2012 Office visit Pablo Croft MD 04/20/2012 Office visit Odette Elam MD 03/29/2012 Office visit Pablo Croft MD 03/16/2012 [facility] Pablo Croft MD 03/09/2012 [facility] Pablo Croft MD 02/24/2012 [facility] Pablo Croft MD 02/11/2012 Office visit Pablo Croft MD 01/28/2012 Office visit Pablo Croft MD 01/19/2012 Office visit Odette Elam MD 12/03/2011 Office visit Reji Bowens MD 11/12/2011 Office visit Alison Antoine FORCE ADJUSTMENT SUPERVISOR 10/28/2011 Procedures Reji Bowens MD 10/07/2011 Office visit Odette Elam MD 09/04/2011 Surgery Reji Bowens MD 08/15/2011 Surgery Reji Bowens MD 07/22/2011 [facility] Naveen Aguilar MD 07/22/2011 [facility] Reji Bowens MD 07/14/2011 Surgery Reji Bowens MD 06/26/2011 Office visit Odette Elam MD 06/24/2011 Office visit Reji Bowens MD 12/04/2010 [facility] Geraldine Church MD
--- OUTSIDE RECORDS SUMMARY | 2018-02-14 12:34 | XMS REPORT ---
Author Chelsea Soliz Organization [facility] Address [address] [place], [place] [id number] Care Team Providers Care Stabber Name Role Phone Chelsea Rodríguez PCP Unavailable [...] then Take 1 tab x 2 days. 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 [...] Mg [facility]# [address]-87 Reviewed 11/27/2015 12:00 AM Depo-Medrol 40mg Reviewed [...] Returned 04/24/2016 12:00 AM Toradol 60 Mg [facility]#2807-3844-70 Reviewed 06/11/2016 12:00 AM Consult/Referral Reviewed 06/11/2016 2:41 PM URINALYSIS AUTO W/O SCOPE Reviewed 06/11/2016 12:00 AM URINE CULTURE/COLONY COUNT Returned 10/29/2011 12:00 AM CYSTOMETROGRAM W/MIDDLE SCHOOL HISTORY TEACHER&UP Reviewed 10/29/2011 12:00 AM ELECTRO-UROFLOWMETRY FIRST Reviewed 10/29/2011 12:00 AM INTRAABDOMINAL PRESSURE TEST Reviewed 11/12/2011 12:00 AM X-RAY URETHRA/BLADDER Reviewed 11/12/2011 12:00 AM X-RAY EXAM SI JOINTS 3/> VWS Reviewed 01/28/2012 12:00 AM MRI LUMBAR SPINE W/O DYE Reviewed 04/20/2012 12:00 AM THER/PROPH/DIAG INJ SC/IM Reviewed 04/20/2012 12:00 AM Depo-Medrol, Per 120 Mg [facility]#1992-4756-59 Reviewed 07/21/2012 12:00 AM THER/PROPH/DIAG INJ SC/IM Reviewed 07/21/2012 12:00 AM Depo-Medrol, Per 120 Mg [facility]#2842-8781-83 Reviewed 09/01/2012 12:00 AM Drug Screen (Non-Medicare) Reviewed 09/01/2012 12:00 AM DRAIN/INJ JOINT/BURSA W/O US Reviewed 09/01/2012 12:00 AM Kenalog, Per 10 Mg [facility]#2112-[address]-18 Reviewed 11/02/2012 12:00 AM Norflex, Up to 60 Mg [facility]#34060-215-10 Reviewed 11/02/2012 12:00 AM INJ TRIGGER POINT 1/2 MUSCL Reviewed 11/02/2012 12:00 AM Bupivicaine, 30 ml [facility]#1018-4717-53 Reviewed 11/02/2012 12:00 AM THER/PROPH/DIAG INJ SC/IM Reviewed 11/02/2012 12:00 AM Norflex, Up to 60 Mg [facility]#30455-758-75 Reviewed 12/27/2012 12:00 AM COMPLETE CBC W/AUTO DIFF WBC Reviewed 12/27/2012 12:00 AM COMPREHEN METABOLIC PANEL Reviewed 12/27/2012 12:00 AM ASSAY THYROID STIM HORMONE Reviewed 12/27/2012 12:00 AM VITAMIN B-12 Reviewed 12/27/2012 12:00 AM ASSAY OF FERRITIN Reviewed 12/27/2012 12:00 AM ANTINUCLEAR ANTIBODIES Reviewed 12/27/2012 12:00 AM DNA ANTIBODY [place] Reviewed 12/27/2012 12:00 AM NUCLEAR ANTIGEN ANTIBODY [...] Mg [facility]# [address]-25 Reviewed 05/31/2013 12:00 AM Depo-Medrol, Per 80 Mg [facility]#8828-5205-11 Reviewed 05/31/2013 12:00 AM THER/PROPH/DIAG INJ SC/IM Reviewed 06/06/2013 12:00 AM MUSCLE TEST 2 LIMBS Reviewed 06/06/2013 12:00 AM Nerve conduction studies with F-wave Reviewed 08/26/2013 12:00 AM MAMMOGRAM SCREENING Reviewed 08/26/2013 12:00 AM MAMMOGRAM SCREENING Reviewed 08/30/2013 12:00 AM THER/PROPH/DIAG INJ SC/IM Reviewed 08/30/2013 12:00 AM Decadron, Per 1 Mg [facility]# [address]-87 Reviewed 08/30/2013 12:00 AM Depo-Medrol, Per 80 Mg [place]#7665-3835-44 Reviewed 11/17/2013 12:00 AM THER/PROPH/DIAG INJ SC/IM Reviewed 11/17/2013 12:00 AM Decadron, Per 1 Mg [facility]# [address]-71 Reviewed 11/17/2013 12:00 AM Depo-Medrol 40mg Reviewed 01/06/2014 12:00 AM THER/PROPH/DIAG INJ SC/IM Reviewed 01/06/2014 12:00 AM Decadron, Per 1 Mg [facility]# [address]-29 Reviewed 01/06/2014 12:00 AM Rocephin 1 gram [facility]#9649-3722-06 Reviewed 01/10/2014 12:00 AM OFFICE/OUTPATIENT VISIT EST [...] Mg [facility]# [address]-92 Reviewed 10/12/2014 12:00 AM Depo-Medrol 40mg Reviewed [...] Small History Of Immunizations Name Date Admin [facility] Name Mf Code Trade Name Lot# Route Inj Vis Given Vis Pub CVX Influenza 03/02/2013 sanofi pasteur PMC Fluzone [id number] Intramuscular Left Deltoid 03/02/2013 12/17/2012 141 X 02/28/2014 [employer] 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 Sep 01 2012 4:05PM [...] Number Start Date [facility] [facility] [place] [id number] N/A [facility] [place] [id number] Saturday, 2011 [employer] [facility] [place] [id number] N/A [facility] [facility] [facility] [place] [id number] Thursday, 2013 [facility] UMR [id number] N/A [facility] [employer] [facility] [id number] N/A [employer] [place] [id number] N/A [facility] [id number] N/A [facility] [id number] N/A [facility] [id number] DOI [id number] May History of Encounters Visit Date Visit Type Provider 06/11/2016 Office visit Chelsea Rodríguez APRN 06/05/2016 Office visit Leonardo Cowan APRN 05/14/2016 Office visit Chelsea Rodríguez APRN 05/05/2016 Office visit Leonardo Cowan APRN 04/24/2016 Office visit Chelsea Rodríguez APRN 04/07/2016 Office visit Chelsea Rodríguez APRN 03/04/2016 Office visit Chelsea Rodríguez DISTRICT MANAGER IN TRAINING 01/14/2016 Office visit Chelsea Rodríguez DISTRICT MANAGER IN TRAINING 01/09/2016 Office visit Leonardo Cowan DISTRICT MANAGER IN TRAINING 01/04/2016 Office visit Leonardo Cowan DISTRICT MANAGER IN TRAINING 11/27/2015 Office visit Chelsea Rodríguez DISTRICT MANAGER IN TRAINING 08/23/2015 Office visit Chelsea Rodríguez DISTRICT MANAGER IN TRAINING 07/19/2015 Office visit 07/19/2015 Office visit Chelsea Rodríguez DISTRICT MANAGER IN TRAINING 06/21/2015 Office visit Chelsea Rodríguez DISTRICT MANAGER IN TRAINING 05/03/2015 Nurse visit Adela Cole MEDICAL CHIEF TECHNICIAN 04/12/2015 Office visit Adela Cole MEDICAL CHIEF TECHNICIAN 03/23/2015 Office visit Chelsea Rodríguez DISTRICT MANAGER IN TRAINING 03/08/2015 Office visit Adela Cole MEDICAL CHIEF TECHNICIAN 02/14/2015 Office visit Leonardo Pazran DISTRICT MANAGER IN TRAINING 02/08/2015 Office visit Adela PITTMANP 02/07/2015 Office visit Leonardo Cowan DISTRICT MANAGER IN TRAINING 01/11/2015 Office visit Adela PITTMANP 12/28/2014 Office visit Chelsea Rodríguez DISTRICT MANAGER IN TRAINING 12/14/2014 Nurse visit Adela PITTMANP 11/23/2014 Nurse visit Adela PITTMANP 10/26/2014 Office visit Adela PITTMANP 10/12/2014 Office visit 10/12/2014 Office visit Chelsea Rodríguez DISTRICT MANAGER IN TRAINING 10/05/2014 Nurse visit Adela PITTMANP 09/07/2014 Office visit Adela PITTMANP 08/17/2014 Office visit 08/17/2014 Office visit 08/17/2014 Office visit Chelsea Rodríguez DISTRICT MANAGER IN TRAINING 08/14/2014 Office visit Adela PITTMANP 07/27/2014 Office visit Adela PITTMANP 2014 Office visit Adela PITTMANP 2014 Office visit Mica Lr DISTRICT MANAGER IN TRAINING 06/28/2014 Nurse visit Adela PITTMANP 05/31/2014 Office visit Adela PITTMANP 05/03/2014 Voided Adela PITTMANP 04/26/2014 Office visit Mica Lr DISTRICT MANAGER IN TRAINING 04/05/2014 Office visit Adela PITTMANP 03/10/2014 Office visit Adela PITTMANP 02/28/2014 Office visit Mica Lr DISTRICT MANAGER IN TRAINING 02/24/2014 Office visit Adela PITTMANP 02/06/2014 Office visit Adela Cole MEDICAL CHIEF TECHNICIAN 01/10/2014 Nurse visit Suzan Liang MD 01/06/2014 Office visit Mica Lr DISTRICT MANAGER IN TRAINING 12/15/2013 Office visit Adela Cole MEDICAL CHIEF TECHNICIAN 11/17/2013 Office visit Chelsea Marcos DISTRICT MANAGER IN TRAINING 11/17/2013 Office visit Adela Cole MEDICAL CHIEF TECHNICIAN 10/20/2013 Office visit Adela Cole MEDICAL CHIEF TECHNICIAN 09/22/2013 Office visit Adela Cole MEDICAL CHIEF TECHNICIAN 08/30/2013 Office visit Chelsea Rodríguez DISTRICT MANAGER IN TRAINING 08/26/2013 Office visit Beti Reyna DISTRICT MANAGER IN TRAINING 07/29/2013 Office visit Adela Cole MEDICAL CHIEF TECHNICIAN 07/06/2013 [facility] Elmira Campbell MD 07/01/2013 Office visit Adela Cole MEDICAL CHIEF TECHNICIAN 06/06/2013 Office visit Adela Cole MEDICAL CHIEF TECHNICIAN 05/31/2013 Office visit Chelsea Rodríguez DISTRICT MANAGER IN TRAINING 05/11/2013 Office visit Adela Cole MEDICAL CHIEF TECHNICIAN 03/22/2013 Office visit Adela Cole MEDICAL CHIEF TECHNICIAN 03/10/2013 Office visit Adela Cole MEDICAL CHIEF TECHNICIAN 03/04/2013 Office visit Adela PITTMANP 03/02/2013 Office visit Odette Elam MD 02/22/2013 Office visit Adela PITTMANP 01/28/2013 Office visit Chelsea Rodríguez DISTRICT MANAGER IN TRAINING 01/25/2013 Office visit Adela PITTMANP 12/27/2012 Office visit Adela PITTMANP 12/07/2012 [facility] Pablo Croft MD 11/24/2012 Office visit Pablo Croft MD 11/02/2012 Office visit Kylah Wright DISTRICT MANAGER IN TRAINING 11/02/2012 Office visit Mica Lr DISTRICT MANAGER IN TRAINING 10/05/2012 [facility] Pablo Croft MD 09/30/2012 Office visit Kylah Wright DISTRICT MANAGER IN TRAINING 09/01/2012 Office visit Kylah Wright DISTRICT MANAGER IN TRAINING 07/21/2012 Office visit Odette Elam MD 06/16/2012 Office visit Pablo Croft MD 05/11/2012 [facility] Pablo Corft MD 04/28/2012 Office visit Pablo Croft MD [...]
--- OUTSIDE RECORDS SUMMARY | 2018-02-14 12:36 | XMS REPORT ---
Author Author Odette Elam [facility] Address [address] [place], [place] [id number] Care Team Providers Care Diabetes Territory Manager Name Role Phone Odette Elam PCP Unavailable Allergies and Adverse Reactions Name Reaction Notes Keflex yeast infection does not want to take due to causes yeast infection Plan of Treatment Planned Activity Comments Planned Date Planned Time Plan/Goal METABOLIC PANEL TOTAL CA 10/12/2014 12:00 AM Medications Active Name Start Date Estimated Completion Date SIG Comments alprazolam oral tablet 0.5 mg 10/12/2014 01/10/2015 take 1 tablet by oral route every 6 hours for 30 days Cymbalta oral capsule,delayed release(DR/EC) 60 mg 10/12/2014 take 1 capsule (60 mg) by oral route once daily Wellbutrin oral tablet 100 mg 10/12/2014 take 1 tablet (100 mg) by oral route 2 times per day gabapentin oral capsule 300 mg 11/23/2014 03/23/2015 take 1 capsule by oral route 3 times a day for 30 days meloxicam oral tablet 15 mg 11/23/2014 03/23/2015 take 1 tablet (15 mg) by oral route once daily for 30 days Zanaflex oral tablet 4 mg 11/23/2014 02/21/2015 take 1 tablet by oral route once a day (at bedtime) as needed for 30 days meloxicam oral tablet 15 mg 11/27/2014 take 1 tablet (15 mg) by oral route once daily for 30 days [place] oral tablet 10-325 mg 12/14/2014 01/13/2015 take 1 tablet by oral route every 8 hours as needed for 30 days Nucynta ER oral tablet extended release 12 hr 100 mg 12/14/2014 01/13/2015 take 1 tablet (100 mg) by oral route every 12 hours for 30 days Name Start Date [...] 201410/04/2014 take as directed for 30 days Chantix Continuing Month Donn oral tablet 1 mg 09/04/2014 11/27/2014 take 1 tablet (1 mg) with a glass of water by oral route 2 times per day after meals for 12 weeks Augmentin oral tablet 875-125 mg 10/12/2014 take [...] HC BMI BSA BMI Percentile O2 Sat(%) 12/14/2014 9:33:00 AM 112 mmHg 64 mmHg [...] 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 Sep 01 2012 4:05PM Wrist [...] Chronic pain syndrome Dec 14 2014 9:35AM Payers Insurance Name Company Name Plan Name Plan Number Policy Number Policy Group Number Start Date R UMR [id number] N/A [employer] [place] [id number] Saturday, 2011 [employer] [place] [id number] N/A [employer] [place] [id number] Thursday, 2013 History of Encounters Visit Date Visit Type Provider 12/14/2014 Nurse visit Adela PORTER 11/23/2014 Nurse visit Adela PORTER 10/26/2014 Office visit Adela PORTER 10/12/2014 Office visit Chelsea Rodríguez APRN 10/05/2014 Nurse visit Adela PORTER 09/07/2014 Office visit Adela PORTER 08/17/2014 Office visit Chelsea Rodríguez APRN 08/14/2014 Office visit Adela PORTER 07/27/2014 Office visit Adela PORTER 2014 Office visit Mica Lr APRN 2014 Office visit Adela PORTER 06/28/2014 Nurse visit Adela PORTER 05/31/2014 Office visit Adela PORTER 05/03/2014 Office visit Adela PORTER 04/26/2014 Office visit Mica Lr APRN 04/05/2014 Office visit Adela PORTER 03/10/2014 Office visit Adela PORTER 02/28/2014 Office visit Mica Lr WEB USER EXPERIENCE STRATEGIST 02/24/2014 Office visit Adela M. Douglas APPRISE COUNSELOR 02/06/2014 Office visit Adela Cole APPRISE COUNSELOR 01/10/2014 Nurse visit Suzan Liang MD 01/06/2014 Office visit Mica Lr WEB USER EXPERIENCE STRATEGIST 12/15/2013 Office visit Adelacatherine Cole APPRISE COUNSELOR 11/17/2013 Office visit Adela JohnsonMarcus Douglas APPRISE COUNSELOR 11/17/2013 Office visit Chelsea Rodríguez WEB USER EXPERIENCE STRATEGIST 10/20/2013 Office visit Adela Cole APPRISE COUNSELOR 09/22/2013 Office visit Adela JohnsonMarcus Douglas APPRISE COUNSELOR 08/30/2013 Office visit Chelsea Rodríguez WEB USER EXPERIENCE STRATEGIST 08/26/2013 Office visit Beti Reyna WEB USER EXPERIENCE STRATEGIST 07/29/2013 Office visit Adela Cole APPRISE COUNSELOR 07/06/2013 [facility] Elmira Campbell MD 07/01/2013 Office visit Adela Cole APPRISE COUNSELOR 06/06/2013 Office visit Adela Cole APPRISE COUNSELOR 05/31/2013 Office visit Chelsea Marcos WEB USER EXPERIENCE STRATEGIST 05/11/2013 Office visit Adela Cole APPRISE COUNSELOR 03/22/2013 Office visit Adela Cole APPRISE COUNSELOR 03/10/2013 Office visit Adela Cole APPRISE COUNSELOR 03/04/2013 Office visit Adela Cole APPRISE COUNSELOR 03/02/2013 Office visit Odette Elam MD 02/22/2013 Office visit Adela PITTMANP 01/28/2013 Office visit Chelsea Rodríguez WEB USER EXPERIENCE STRATEGIST 01/25/2013 Office visit Adela Cole APPRISE COUNSELOR 12/27/2012 Office visit Adela Cole APPRISE COUNSELOR 12/07/2012 [facility] Pablo Croft MD 11/24/2012 Office visit Pablo Croft MD 11/02/2012 Office visit Mica Lr WEB USER EXPERIENCE STRATEGIST 11/02/2012 Office visit Kylah Wright WEB USER EXPERIENCE STRATEGIST 10/05/2012 [facility] Pablo Croft MD 09/30/2012 Office visit Kylah Wright WEB USER EXPERIENCE STRATEGIST 09/01/2012 Office visit Kylah Wright WEB USER EXPERIENCE STRATEGIST 07/21/2012 Office visit Odette Elam MD 06/16/2012 [...] Reji Bowens MD 07/22/2011 [facility] Reji Bowens MD 07/22/2011 [facility] Naveen Aguilar MD 07/14/2011 Surgery Reji Bowens MD 06/26/2011 Office visit Odette Elam MD 06/24/2011 Office visit Reji Bowens MD 12/04/2010 [facility] Asha Church MD
--- OUTSIDE RECORDS SUMMARY | 2018-02-14 12:39 | XMS REPORT ---
Author Chelsea Soliz Organization [facility] Address [address] [place], [place] [id number] Care Team Providers Care Hydrogenation Operator Name Role Phone Chelsea Rodríguez PCP [...] take 1 tablet by oral route daily Belsomra 20 mg oral tablet 02/20/2017 take 1 tablet (20 mg) by oral route once per night, within 30 minutes of bedtime, as needed. Take only if at least 7 hrs of bedtime remain before planned time of waking. alprazolam 0.5 mg oral tablet 02/20/2017 05/21/2017 take 1 tablet by oral route Q6 PRN for 30 days bupropion HCl 75 mg oral tablet 02/20/2017 taper schedule: start 1 tablet daily x7 days, then 1 tablet BID x7 days, then 2 tablets am, 1 tablet PM x7 days , then 2 tablets BID Name Start Date Expiration Date SIG Comments [...] then Take 1 tab x 2 days. 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 [...] 11/27/2015 12:00 AM Decadron, Per 1 Mg [facility]# [address]-83 Reviewed 11/27/2015 12:00 AM Depo-Medrol 40mg Reviewed [...] Reviewed 04/24/2016 12:00 AM Toradol 60 Mg [facility]#0936-0295-28 Reviewed 06/11/2016 12:00 AM Consult/Referral Reviewed 06/11/2016 2:41 PM URINALYSIS AUTO W/O SCOPE Reviewed 06/11/2016 12:00 AM URINE CULTURE/COLONY COUNT Reviewed 06/13/2016 12:00 AM Splint, prefabricated, wrist or ankle Reviewed 07/31/2016 12:00 AM LIPID PANEL Reviewed 07/31/2016 12:00 AM MAMMOGRAPHY SCREENING, DIGITAL Reviewed 10/29/2011 12:00 AM CYSTOMETROGRAM W/CREATIVE RESOURCE MANAGER&UP Reviewed 10/29/2011 12:00 AM ELECTRO-UROFLOWMETRY FIRST [...] 04/20/2012 12:00 AM Depo-Medrol, Per 120 Mg [facility]#3838-2012-89 Reviewed 07/21/2012 12:00 AM THER/PROPH/DIAG INJ SC/IM Reviewed 07/21/2012 12:00 AM Depo-Medrol, Per 120 Mg [facility]#0575-1641-49 Reviewed 09/01/2012 12:00 AM Drug Screen (Non-Medicare) Reviewed 09/01/2012 12:00 AM DRAIN/INJ JOINT/BURSA W/O US Reviewed 09/01/2012 12:00 AM Kenalog, Per 10 Mg [facility]#7287-0583-98 Reviewed 11/02/2012 12:00 AM Norflex, Up to 60 Mg [facility]#16947-421-99 Reviewed 11/02/2012 12:00 AM INJ TRIGGER POINT 1/2 MUSCL Reviewed 11/02/2012 12:00 AM Bupivicaine, 30 ml [facility]#3786-0746-32 Reviewed 11/02/2012 12:00 AM THER/PROPH/DIAG INJ SC/IM Reviewed 11/02/2012 12:00 AM Norflex, Up to 60 Mg [facility]#58458-361-55 Reviewed 12/27/2012 12:00 AM COMPLETE CBC W/AUTO [...] 05/31/2013 12:00 AM Decadron, Per 1 Mg [facility]# [address]-48 Reviewed 05/31/2013 12:00 AM Depo-Medrol, Per 80 Mg [place]#6280-1201-45 Reviewed 05/31/2013 12:00 AM THER/PROPH/DIAG INJ SC/IM Reviewed 06/06/2013 12:00 AM MUSCLE TEST 2 LIMBS Reviewed 06/06/2013 12:00 AM Nerve conduction studies with F-wave Reviewed 08/26/2013 12:00 AM MAMMOGRAM SCREENING Reviewed 08/26/2013 12:00 AM MAMMOGRAM SCREENING Reviewed 08/30/2013 12:00 AM THER/PROPH/DIAG INJ SC/IM Reviewed 08/30/2013 12:00 AM Decadron, Per 1 Mg [facility]# [address]-27 Reviewed 08/30/2013 12:00 AM Depo-Medrol, Per 80 Mg [facility]#9656-6397-26 Reviewed 11/17/2013 12:00 AM THER/PROPH/DIAG INJ SC/IM Reviewed 11/17/2013 12:00 AM Decadron, Per 1 Mg [facility]# [address]-98 Reviewed 11/17/2013 12:00 AM Depo-Medrol 40mg Reviewed 01/06/2014 12:00 AM THER/PROPH/DIAG INJ SC/IM Reviewed 01/06/2014 12:00 AM Decadron, Per 1 Mg [facility]# [address]-71 Reviewed 01/06/2014 12:00 AM Rocephin 1 gram [facility]#6179-0791-76 Reviewed 01/10/2014 12:00 AM OFFICE/OUTPATIENT VISIT EST [...] 10/12/2014 12:00 AM Decadron, Per 1 Mg [facility]# [address]-80 Reviewed 10/12/2014 12:00 AM Depo-Medrol 40mg Reviewed [...] CVX Influenza 03/02/2013 sanofi pasteur PMC Fluzone [id number] Intramuscular Left Deltoid 03/02/2013 12/17/2012 141 X 02/28/2014 Merck & Co., Inc. 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 01 2012 4:05PM [...] Group Number Start Date [employer] [place] [id number] N/A [employer] [place] [id number] Saturday, 2011 [employer] [place] [id number] N/A [employer] [place] [id number] Thursday, 2013 [facility] UMR [id number] N/A [employer]ums [id number] N/A [employer] [place] [id number] N/A Res Care [employer] [id number] N/A [employer] [id number] N/A [employer] [facility] [employer] [id number] DOI [id number] May [employer] [place] [id number] N/A History of Encounters Visit Date Visit Type Provider 02/20/2017 Office visit Chelsea Rodríguez APRN 02/10/2017 Office visit Jeremy West DO 01/31/2017 Office visit Dimitri Beebe NP 11/20/2016 Office visit Chelsea Rodríguez CUT OUT AND MARKING MACHINE OPERATOR 08/29/2016 Office visit Chelsea Rodríguez CUT OUT AND MARKING MACHINE OPERATOR 07/31/2016 Office visit Chelsea Rodríguez CUT OUT AND MARKING MACHINE OPERATOR 06/11/2016 Office visit Chelsea Rodríguez CUT OUT AND MARKING MACHINE OPERATOR 06/05/2016 Office visit Leonardo Cowan CUT OUT AND MARKING MACHINE OPERATOR 05/14/2016 Office visit Chelsea Rodríguez CUT OUT AND MARKING MACHINE OPERATOR 05/05/2016 Office visit Leonardo Cowan APRN 04/24/2016 Office visit Chelsea Rodríguez CUT OUT AND MARKING MACHINE OPERATOR 04/07/2016 Office visit Chelsea Rodríguez APRN 03/04/2016 Office visit Chelsea Rodríguez APRN 01/14/2016 Office visit Chelsea Rodríguez CUT OUT AND MARKING MACHINE OPERATOR 01/09/2016 Office visit Leonardo Cowan CUT OUT AND MARKING MACHINE OPERATOR 01/04/2016 Office visit Leonardo Cowan CUT OUT AND MARKING MACHINE OPERATOR 11/27/2015 Office visit Chelsea Rodríguez CUT OUT AND MARKING MACHINE OPERATOR 08/23/2015 Office visit Chelsea Rodríguez CUT OUT AND MARKING MACHINE OPERATOR 07/19/2015 Office visit 07/19/2015 Office visit Chelsea Rodríguez CUT OUT AND MARKING MACHINE OPERATOR 06/21/2015 Office visit Chelsea Rodríguez CUT OUT AND MARKING MACHINE OPERATOR 05/03/2015 Nurse visit Adela PORTER 04/12/2015 Office visit Adela PORTER 03/23/2015 Office visit Chelsea Rodríguez APRN 03/08/2015 Office visit Adela PORTER 02/14/2015 Office visit Leonardo Pazran CUT OUT AND MARKING MACHINE OPERATOR 02/08/2015 Office visit Adela Cole BAND SPLITTER 02/07/2015 Office visit Leonardo Cowan CUT OUT AND MARKING MACHINE OPERATOR 01/11/2015 Office visit Adela Cole BAND SPLITTER 12/28/2014 Office visit Chelsea Rodríguez CUT OUT AND MARKING MACHINE OPERATOR 12/14/2014 Nurse visit Adela Cloe BAND SPLITTER 11/23/2014 Nurse visit Adela Cole BAND SPLITTER 10/26/2014 Office visit Adela Cole BAND SPLITTER 10/12/2014 Office visit 10/12/2014 Office visit Chelsea Marcos CUT OUT AND MARKING MACHINE OPERATOR 10/05/2014 Nurse visit Adela Cole BAND SPLITTER 09/07/2014 Office visit Adela Cole BAND SPLITTER 08/17/2014 Office visit 08/17/2014 Office visit 08/17/2014 Office visit Chelsea Rodríguez CUT OUT AND MARKING MACHINE OPERATOR 08/14/2014 Office visit Adela Cole BAND SPLITTER 07/27/2014 Office visit Adela Cole BAND SPLITTER 2014 Office visit Adela PITTMANP 2014 Office visit Mica Lr CUT OUT AND MARKING MACHINE OPERATOR 06/28/2014 Nurse visit Adela Cole BAND SPLITTER 05/31/2014 Office visit Adela PITTMANP 05/03/2014 Voided Adela Cole BAND SPLITTER 04/26/2014 Office visit Mica Lr CUT OUT AND MARKING MACHINE OPERATOR 04/05/2014 Office visit Adela PITTMANP 03/10/2014 Office visit Adela PITTMANP 02/28/2014 Office visit Mica Lr CUT OUT AND MARKING MACHINE OPERATOR 02/24/2014 Office visit Adela PITTMANP 02/06/2014 Office visit Adela PITTMANP 01/10/2014 Nurse visit Suzan Liang MD 01/06/2014 Office visit Mica Lr CUT OUT AND MARKING MACHINE OPERATOR 12/15/2013 Office visit Adela PITTMANP 11/17/2013 Office visit Chelsea Marcos CUT OUT AND MARKING MACHINE OPERATOR 11/17/2013 Office visit Adela PITTMANP 10/20/2013 Office visit Adela PITTMANP 09/22/2013 Office visit Adela PITTMANP 08/30/2013 Office visit Chelsea Rodríguez CUT OUT AND MARKING MACHINE OPERATOR 08/26/2013 Office visit Beti Reyna CUT OUT AND MARKING MACHINE OPERATOR 07/29/2013 Office visit Adela Cole BAND SPLITTER 07/06/2013 Procedures Elmira Campbell MD 07/01/2013 Office visit Adela AlexMarcus Cole BAND SPLITTER 06/06/2013 Office visit Adela AlexMarcus Cole BAND SPLITTER 05/31/2013 Office visit Chelsea Rodríguez CUT OUT AND MARKING MACHINE OPERATOR 05/11/2013 Office visit Adela MMarcus Cole BAND SPLITTER 03/22/2013 Office visit Adela M. Douglas BAND SPLITTER 03/10/2013 Office visit Adela M. Douglas BAND SPLITTER 03/04/2013 Office visit Adela Cole BAND SPLITTER 03/02/2013 Office visit Odette Elam MD 02/22/2013 Office visit Adela AlexMarcus Cole BAND SPLITTER 01/28/2013 Office visit Chelsea Marcos CUT OUT AND MARKING MACHINE OPERATOR 01/25/2013 Office visit Adela M. Douglas BAND SPLITTER 12/27/2012 Office visit Adela Cole BAND SPLITTER 12/07/2012 [facility] Pablo Croft MD 11/24/2012 Office visit Pablo Croft MD 11/02/2012 Office visit Kylah Wright CUT OUT AND MARKING MACHINE OPERATOR 11/02/2012 Office visit Mica Lr CUT OUT AND MARKING MACHINE OPERATOR 10/05/2012 [facility] Pablo Croft MD 09/30/2012 Office visit Kylah Wright CUT OUT AND MARKING MACHINE OPERATOR 09/01/2012 Office visit Kylah Wright CUT OUT AND MARKING MACHINE OPERATOR 07/21/2012 Office visit Odette Elam MD 06/16/2012 Office visit Pablo Croft MD 05/11/2012 [facility] Pablo Croft MD 04/28/2012 Office visit Pablo Croft MD 04/20/2012 Office visit Odette Elam MD 03/29/2012 Office visit Pablo Croft MD 03/16/2012 [facility] Pablo Croft MD 03/09/2012 [facility] Pablo Croft MD 02/24/2012 [facility] Pablo Croft MD 02/11/2012 Office visit Pablo Croft MD 01/28/2012 Office visit Pablo Croft MD 01/19/2012 Office visit Odette Elam MD 12/03/2011 Office visit Reji Bowens MD 11/12/2011 Office visit Alison Antoine CUT OUT AND MARKING MACHINE OPERATOR 10/28/2011 Procedures Reji Bowens MD 10/07/2011 Office visit Odette Elam MD 09/04/2011 Surgery Reji Bowens MD 08/15/2011 Surgery Reji Bowens MD 07/22/2011 [facility] Naveen Aguilar MD 07/22/2011 [facility] Reji Bowens MD 07/14/2011 Surgery Reji Bowens MD 06/26/2011 Office visit Odette Elam MD 06/24/2011 Office visit Reji Bowens MD 12/04/2010 [facility] Asha Church MD
--- OUTSIDE RECORDS SUMMARY | 2018-02-14 12:41 | XMS REPORT ---
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# [address]-10 Reviewed 11/27/2015 12:00 AM Depo-Medrol 40mg Reviewed [...] and screen Returned 10/29/2011 12:00 AM CYSTOMETROGRAM W/ICE CREAM VAN VENDOR&UP Reviewed 10/29/2011 12:00 AM ELECTRO-UROFLOWMETRY FIRST Reviewed 10/29/2011 12:00 AM INTRAABDOMINAL PRESSURE TEST Reviewed 11/12/2011 12:00 AM X-RAY URETHRA/BLADDER Reviewed 11/12/2011 12:00 AM X-RAY EXAM SI JOINTS 3/> VWS Reviewed 01/28/2012 12:00 AM MRI LUMBAR SPINE W/O DYE Returned 04/20/2012 12:00 AM THER/PROPH/DIAG INJ SC/IM Reviewed 04/20/2012 12:00 AM Depo-Medrol, Per 120 Mg [facility]#9544-1921-18 Reviewed 07/21/2012 12:00 AM THER/PROPH/DIAG INJ SC/IM Reviewed 07/21/2012 12:00 AM Depo-Medrol, Per 120 Mg [facility]#4504-9739-74 Reviewed 09/01/2012 12:00 AM Drug Screen (Non-Medicare) Reviewed 09/01/2012 12:00 AM DRAIN/INJ JOINT/BURSA W/O US Reviewed 09/01/2012 12:00 AM Kenalog, Per 10 Mg [facility]#5563-6907-39 Reviewed 11/02/2012 12:00 AM Norflex, Up to 60 Mg [facility]#51635-672-49 Reviewed 11/02/2012 12:00 AM INJ TRIGGER POINT 1/2 MUSCL Reviewed 11/02/2012 12:00 AM Bupivicaine, 30 ml [facility]#3469-7813-44 Reviewed 11/02/2012 12:00 AM THER/PROPH/DIAG INJ SC/IM Reviewed 11/02/2012 12:00 AM Norflex, Up to 60 Mg [facility]#03439-012-12 Reviewed 12/27/2012 12:00 AM COMPLETE CBC W/AUTO DIFF WBC Returned 12/27/2012 12:00 AM COMPREHEN METABOLIC PANEL Returned 12/27/2012 12:00 AM ASSAY THYROID STIM HORMONE Returned 12/27/2012 12:00 AM VITAMIN B-12 Returned 12/27/2012 12:00 AM ASSAY OF FERRITIN Returned 12/27/2012 12:00 AM ANTINUCLEAR ANTIBODIES Reviewed 12/27/2012 12:00 AM DNA ANTIBODY [place] Reviewed 12/27/2012 12:00 AM NUCLEAR ANTIGEN ANTIBODY [...] 1 Mg [facility]# [address]-17 Reviewed 05/31/2013 12:00 AM Depo-Medrol, Per 80 Mg [place]#6154-6762-59 Reviewed 05/31/2013 12:00 AM THER/PROPH/DIAG INJ SC/IM Reviewed 06/06/2013 12:00 AM MUSCLE TEST 2 LIMBS Reviewed 06/06/2013 12:00 AM Nerve conduction studies with F-wave Reviewed 08/26/2013 12:00 AM MAMMOGRAM SCREENING Returned 08/26/2013 12:00 AM MAMMOGRAM SCREENING Reviewed 08/30/2013 12:00 AM THER/PROPH/DIAG INJ SC/IM Reviewed 08/30/2013 12:00 AM Decadron, Per 1 Mg ND# [address]-25 Reviewed 08/30/2013 12:00 AM Depo-Medrol, Per 80 Mg [facility]#2740-0123-92 Reviewed 11/17/2013 12:00 AM THER/PROPH/DIAG INJ SC/IM Reviewed 11/17/2013 12:00 AM Decadron, Per 1 Mg ND# [address]-00 Reviewed 11/17/2013 12:00 AM Depo-Medrol 40mg Reviewed 01/06/2014 12:00 AM THER/PROPH/DIAG INJ SC/IM Reviewed 01/06/2014 12:00 AM Decadron, Per 1 Mg [facility]# [address]-31 Reviewed 01/06/2014 12:00 AM Rocephin 1 gram [facility]#7948-0447-74 Reviewed 01/10/2014 12:00 AM OFFICE/OUTPATIENT VISIT EST [...] 1 Mg [facility]# [address]-28 Reviewed 10/12/2014 12:00 AM Depo-Medrol 40mg Reviewed [...] CVX Influenza 03/02/2013 sanofi pasteur PMC Fluzone [id number] Intramuscular Left Deltoid 03/02/2013 12/17/2012 141 X 02/28/2014 Merck & Co., Inc. MSD Pneumovax 23 [id number] Intramuscular Left Deltoid 02/28/2014 02/27/2009 33 Influenza 03/23/2015 sanofi pasteur PMC Fluzone Quadrivalent [id number] Intramuscular Right Deltoid 03/23/2015 12/29/2014 140 History [...] SI joint pain Sep 01 2012 3:06PM [facility] medication use Sep 01 2012 4:05PM Wrist [...] Group Number Start Date [employer] [place] [id number] N/A [facility] [employer]Care [id number] N/A [employer] [place] [id number] Thursday, 2011 [employer] [place] [id number] N/A [employer] [place] [id number] Thursday, 2013 [facility] UMR [id number] N/A [facility] [employer] [facility] [id number] N/A History of Encounters Visit Date Visit Type Provider 01/14/2016 Office visit Chelsea Rodríguez QUARRY WORKER 01/09/2016 Office visit Leonardo Cowan QUARRY WORKER 01/04/2016 Office visit Leonardo Cowan QUARRY WORKER 11/27/2015 Office visit Chelsea Rodríguez QUARRY WORKER 08/23/2015 Office visit Chelsea Rodríguez QUARRY WORKER 07/19/2015 Office visit 07/19/2015 Office visit Chelsea Rodríguez QUARRY WORKER 06/21/2015 Office visit Chelsea Rodríguez QUARRY WORKER 05/03/2015 Nurse visit Adela Cole [employer]ERAL [employer]S DEAN 04/12/2015 Office visit Adela PITTMANP 03/23/2015 Office visit Chelsea Rodríguez QUARRY WORKER 03/08/2015 Office visit Adela PITTMANP 02/14/2015 Office visit Leonardo Pazran QUARRY WORKER 02/08/2015 Office visit Adela PITTMANP 02/07/2015 Office visit Leonardo Camryn QUARRY WORKER 01/11/2015 Office visit Adela PITTMANP 12/28/2014 Office visit Chelsea Rodríguez QUARRY WORKER 12/14/2014 Nurse visit Adela PITTMANP 11/23/2014 Nurse visit Adela PITTMANP 10/26/2014 Office visit Adela PITTMANP 10/12/2014 Office visit 10/12/2014 Office visit Chelsea Rodríguez QUARRY WORKER 10/05/2014 Nurse visit Adela PITTMANP 09/07/2014 Office visit Adela PITTMANP 08/17/2014 Office visit 08/17/2014 Office visit 08/17/2014 Office visit Chelsea Rodríguez QUARRY WORKER 08/14/2014 Office visit Adela PITTMANP 07/27/2014 Office visit Adela PITTMANP 2014 Office visit Adela PITTMANP 2014 Office visit Mica Lr QUARRY WORKER 06/28/2014 Nurse visit Adela PITTMANP 05/31/2014 Office visit Adela PITTMANP 05/03/2014 Voided Adela PITTMANP 04/26/2014 Office visit Mica Lr QUARRY WORKER 04/05/2014 Office visit Adela PITTMANP 03/10/2014 Office visit Adela PITTMANP 02/28/2014 Office visit Mica Lr QUARRY WORKER 02/24/2014 Office visit Adela Manjit Douglas [employer] 02/06/2014 Office visit Adela Manjit Douglas [employer] DEAN 01/10/2014 Nurse visit Suzan Liang MD 01/06/2014 Office visit Mica Lr QUARRY WORKER 12/15/2013 Office visit Adela Manjit Cole [employer] 11/17/2013 Office visit Chelsea Rodríguez QUARRY WORKER 11/17/2013 Office visit Adela MMarcus Cole [employer] 10/20/2013 Office visit Adela Cole LIBERAL [employer]S DEAN 09/22/2013 Office visit Adela AlexMarcus Cole [employer]AN 08/30/2013 Office visit Chelsea Rodríguez QUARRY WORKER 08/26/2013 Office visit Beti Reyna QUARRY WORKER 07/29/2013 Office visit Adela Cole [employer]ERAL [employer] DEAN 07/06/2013 [facility] Elmira Campbell MD 07/01/2013 Office visit Adela Manjit Douglas [employer] DEAN 06/06/2013 Office visit Adela Cole LIBERAL ARTS DEAN 05/31/2013 Office visit Chelsea Rodríguez QUARRY WORKER 05/11/2013 Office visit Adela Cole LIBERAL ARTS DEAN 03/22/2013 Office visit Adela Cole LIBERAL ARTS DEAN 03/10/2013 Office visit Adela Cole LIBERAL ARTS DEAN 03/04/2013 Office visit Adela PITTMANP 03/02/2013 Office visit Odette Elam MD 02/22/2013 Office visit Adela PITTMANP 01/28/2013 Office visit Chelsea Rodríguez QUARRY WORKER 01/25/2013 Office visit Adela PITTMANP 12/27/2012 Office visit Adela Cole [employer]ERAL [employer] DEAN 12/07/2012 [facility] Pablo Croft MD 11/24/2012 Office visit Pablo Croft MD 11/02/2012 Office visit Kylah Wright QUARRY WORKER 11/02/2012 Office visit Mica Lr QUARRY WORKER 10/05/2012 [facility] Pablo Croft MD 09/30/2012 Office visit Kylah Wright QUARRY WORKER 09/01/2012 Office visit Kylah Wright QUARRY WORKER 07/21/2012 Office visit Odette Elam MD 06/16/2012 Office visit Pablo Croft MD 05/11/2012 [facility] Pablo Croft MD 04/28/2012 Office visit Pablo Croft MD 04/20/2012 Office visit Odette Elam MD 03/29/2012 Office visit Pablo Croft MD 03/16/2012 [facility] Pablo Croft MD 03/09/2012 [facility] Pablo Croft MD 02/24/2012 [facility] Pablo Croft MD 02/11/2012 Office visit Pablo Croft MD 01/28/2012 Office visit Pablo Croft MD 01/19/2012 Office visit Odette Elam MD 12/03/2011 Office visit Reji Bowens MD 11/12/2011 Office visit Alison Antoine APRN 10/28/2011 Procedures Reji Bowens MD 10/07/2011 Office visit Odette Elam MD 09/04/2011 Surgery Reji Bowens MD 08/15/2011 Surgery Reji Bowens MD 07/22/2011 [facility] Naveen Aguilar MD 07/22/2011 [facility] Reji Bowens MD 07/14/2011 Surgery Reji Bowens MD 06/26/2011 Office visit Odette Elam MD 06/24/2011 Office visit Reji Bowens MD 12/04/2010 [facility] Asha Church MD
--- OUTSIDE RECORDS SUMMARY | 2018-02-14 12:44 | XMS REPORT ---
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 Take only if at least 7 hrs of bedtime remain before planned time of waking. for 30 days Chantix Continuing Month Box 1 mg oral [...] then Take 1 tab x 2 days. [place] 10-325 mg oral tablet 05/03/2015 06/02/2015 take [...] 11/27/2015 12:00 AM Decadron, Per 1 Mg [facility]# [address]-62 Reviewed 11/27/2015 12:00 AM Depo-Medrol 40mg Reviewed [...] and screen Returned 10/29/2011 12:00 AM CYSTOMETROGRAM W/FILM CREW MEMBER&UP Reviewed 10/29/2011 12:00 AM ELECTRO-UROFLOWMETRY FIRST Reviewed 10/29/2011 12:00 AM INTRAABDOMINAL PRESSURE TEST Reviewed 11/12/2011 12:00 AM X-RAY URETHRA/BLADDER Reviewed 11/12/2011 12:00 AM X-RAY EXAM SI JOINTS 3/> VWS Reviewed 01/28/2012 12:00 AM MRI LUMBAR SPINE W/O DYE Returned 04/20/2012 12:00 AM THER/PROPH/DIAG INJ SC/IM Reviewed 04/20/2012 12:00 AM Depo-Medrol, Per 120 Mg [facility]#0306-1123-02 Reviewed 07/21/2012 12:00 AM THER/PROPH/DIAG INJ SC/IM Reviewed 07/21/2012 12:00 AM Depo-Medrol, Per 120 Mg [facility]#0912-4476-00 Reviewed 09/01/2012 12:00 AM Drug Screen (Non-Medicare) Reviewed 09/01/2012 12:00 AM DRAIN/INJ JOINT/BURSA W/O US Reviewed 09/01/2012 12:00 AM Kenalog, Per 10 Mg ND#3631-0062-82 Reviewed 11/02/2012 12:00 AM Norflex, Up to 60 Mg [facility]#89191-523-62 Reviewed 11/02/2012 12:00 AM INJ TRIGGER POINT 1/2 MUSCL Reviewed 11/02/2012 12:00 AM Bupivicaine, 30 ml ND#1870-9607-15 Reviewed 11/02/2012 12:00 AM THER/PROPH/DIAG INJ SC/IM Reviewed 11/02/2012 12:00 AM Norflex, Up to 60 Mg [facility]#42706-886-67 Reviewed 12/27/2012 12:00 AM COMPLETE CBC W/AUTO DIFF WBC Returned 12/27/2012 12:00 AM COMPREHEN METABOLIC PANEL Returned 12/27/2012 12:00 AM ASSAY THYROID STIM HORMONE Returned 12/27/2012 12:00 AM VITAMIN B-12 Returned 12/27/2012 12:00 AM ASSAY OF FERRITIN Returned 12/27/2012 12:00 AM ANTINUCLEAR ANTIBODIES Reviewed 12/27/2012 12:00 AM DNA ANTIBODY [place] Reviewed 12/27/2012 12:00 AM NUCLEAR ANTIGEN ANTIBODY [...] 12:00 AM Decadron, Per 1 Mg ND# [address]-45 Reviewed 05/31/2013 12:00 AM Depo-Medrol, Per 80 Mg [facility]#6925-7723-56 Reviewed 05/31/2013 12:00 AM THER/PROPH/DIAG INJ SC/IM Reviewed 06/06/2013 12:00 AM MUSCLE TEST 2 LIMBS Reviewed 06/06/2013 12:00 AM Nerve conduction studies with F-wave Reviewed 08/26/2013 12:00 AM MAMMOGRAM SCREENING Returned 08/26/2013 12:00 AM MAMMOGRAM SCREENING Reviewed 08/30/2013 12:00 AM THER/PROPH/DIAG INJ SC/IM Reviewed 08/30/2013 12:00 AM Decadron, Per 1 Mg N[facility]# [address]-19 Reviewed 08/30/2013 12:00 AM Depo-Medrol, Per 80 Mg N[facility]#3599-5952-10 Reviewed 11/17/2013 12:00 AM THER/PROPH/DIAG INJ SC/IM Reviewed 11/17/2013 12:00 AM Decadron, Per 1 Mg [facility]# [address]-61 Reviewed 11/17/2013 12:00 AM Depo-Medrol 40mg Reviewed 01/06/2014 12:00 AM THER/PROPH/DIAG INJ SC/IM Reviewed 01/06/2014 12:00 AM Decadron, Per 1 Mg [facility]# [address]-33 Reviewed 01/06/2014 12:00 AM Rocephin 1 gram [facility]#6779-5020-97 Reviewed 01/10/2014 12:00 AM OFFICE/OUTPATIENT VISIT EST [...] 10/12/2014 12:00 AM Decadron, Per 1 Mg [facility]# [address]-12 Reviewed 10/12/2014 12:00 AM Depo-Medrol 40mg Reviewed [...] CVX Influenza 03/02/2013 sanofi pasteur PMC Fluzone [id number] Intramuscular Left Deltoid 03/02/2013 12/17/2012 141 X 02/28/2014 Merck & Co., Inc. MSD Pneumovax 23 [id number] Intramuscular Left Deltoid 02/28/2014 02/27/2009 33 Influenza 03/23/2015 [facility] Fluzone Quadrivalent [id number] Intramuscular Right Deltoid 03/23/2015 12/29/2014 140 History [...] 9:38AM Osteoarthrosis Feb 2011 9:38AM Abdominal Pain b 2011 9:38AM [...] 5 2011 9:12AM Radiculopathy, lumbosacral Sep 19 2012 3:58PM SI joint pain Feb 11 [...] Start Date [employer] [place] [id number] N/A Res Care ResCare [id number] N/A [employer] [id number] N/A [employer] [place] [id number] Saturday, 2011 [employer] [place] [id number] N/A [employer] [place] [id number] Thursday, 2013 UMR UMR [id number] N/A [employer] [id number] N/A History of Encounters Visit Date Visit [...] Office visit 08/17/2014 Office visit Chelsea Rodríguez ARMOR RECONNAISSANCE VEHICLE DRIVER 08/14/2014 Office visit Adela Cole REFRACTORY SPECIALIST 07/27/2014 Office visit Adela Cole REFRACTORY SPECIALIST 2014 Office visit Adela Cole REFRACTORY SPECIALIST 2014 Office visit Micawillian Lr ARM[employer] RECONNAISSANCE VEHICLE DRIVER 06/28/2014 Nurse visit Adela Cole REFRACTORY SPECIALIST 05/31/2014 Office visit Adela Cole REFRACTORY SPECIALIST 05/03/2014 Voided Adela Cole REFRACTORY SPECIALIST 04/26/2014 Office visit Mica Lr ARMOR RECONNAISSANCE VEHICLE DRIVER 04/05/2014 Office visit Adela Cole REFRACTORY SPECIALIST 03/10/2014 Office visit Adela Cole REFRACTORY SPECIALIST 02/28/2014 Office visit Mica Lr [employer] VEHICLE DRIVER 02/24/2014 Office visit Adela PITTMANP 02/06/2014 Office visit Adela Cole REFRACTORY SPECIALIST 01/10/2014 Nurse visit Suzan Liang MD 01/06/2014 Office visit Mica Lr [employer]HICLE DRIVER 12/15/2013 Office visit Adela Cole REFRACTORY SPECIALIST 11/17/2013 Office visit Chelsea Rodríguez ARMOR REC[employer]NAISSANCE VEHICLE DRIVER 11/17/2013 Office visit Adela Cole REFRACTORY SPECIALIST 10/20/2013 Office visit Adela PITTMANP 09/22/2013 Office visit Adela Cole REFRACTORY SPECIALIST 08/30/2013 Office visit Chelsea Rodríguez ARMOR RECONNAISSANCE VEHICLE DRIVER 08/26/2013 Office visit Beti Reyna ARMOR RECONNAISSANCE VEHICLE DRIVER 07/29/2013 Office visit Adela PITTMANP 07/06/2013 Procedures Elmira Campbell MD 07/01/2013 Office visit Adela Cole REFRACTORY SPECIALIST 06/06/2013 Office visit Adela Cole REFRACTORY SPECIALIST 05/31/2013 Office visit Chelsea Rodríguez ARM[employer]NA[employer] VEHICLE DRIVER 05/11/2013 Office visit Adela Cole REFRACTORY SPECIALIST 03/22/2013 Office visit Adela Cole REFRACTORY SPECIALIST 03/10/2013 Office visit Adela PITTMANP 03/04/2013 Office visit Adela PITTMANP 03/02/2013 Office visit Odette Elam MD 02/22/2013 Office visit Adela PITTMANP 01/28/2013 Office visit Chelsea Rodríguez ARM[employer]NA[employer] VEHICLE DRIVER 01/25/2013 Office visit Adela PITTMANP 12/27/2012 Office visit Adela Cole REFRACTORY SPECIALIST 12/07/2012 [facility] Pablo Croft MD 11/24/2012 Office visit Pablo Croft MD 11/02/2012 Office visit Kylah Wright ARM[employer] RECONNAISSANCE VEHICLE DRIVER 11/02/2012 Office visit Mica Kareem Lr [employer] REC[employer]NAISSANCE VEHICLE DRIVER 10/05/2012 [facility] Pablo Croft MD 09/30/2012 Office visit Kylah Wright ARMOR RECONNAISSANCE VEHICLE DRIVER 09/01/2012 Office visit Kylah Wright ARMOR RECONNAISSANCE VEHICLE DRIVER 07/21/2012 Office visit Odette Elam MD 06/16/2012 Office visit Pablo Croft MD 05/11/2012 [facility] Pablo Croft MD 04/28/2012 Office visit Pablo Croft MD 04/20/2012 Office visit Odette Elam MD 03/29/2012 Office visit Pablo Croft MD 03/16/2012 [facility] Pablo Croft MD 03/09/2012 [facility] Pablo Croft MD 02/24/2012 [facility] Pablo Croft MD 02/11/2012 Office visit Pablo Croft MD 01/28/2012 Office visit Pablo Croft MD 01/19/2012 Office visit Odette Elam MD 12/03/2011 Office visit Reji Bowens MD 11/12/2011 Office visit Alison Antoine ARM[employer]NAISSANCE VEHICLE DRIVER 10/28/2011 Procedures Reji Bowens MD 10/07/2011 Office visit Odette Elam MD 09/04/2011 Surgery Reji Bowens MD 08/15/2011 Surgery Reji Bowens MD 07/22/2011 [facility] Naveen Aguilar MD 07/22/2011 [facility] Reji Bowens MD 07/14/2011 Surgery Reji Bowens MD 06/26/2011 Office visit Odette Elam MD 06/24/2011 Office visit Reji Bowens MD 12/04/2010 [facility] Asha Church MD
--- OUTSIDE RECORDS SUMMARY | 2018-02-14 12:47 | XMS REPORT ---
Author Author Chelsea Rodríguez Organization [facility] Address [address] [place], [place] [id number] Care Team Providers Care Body Die Maker Name Role Phone Chelsea Rodríguez PCP Chelsea [...] then Take 1 tab x 2 days. 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 [...] AM Decadron, Per 1 Mg [facility]# [address]-81 Reviewed 11/27/2015 12:00 AM Depo-Medrol 40mg Reviewed [...] 04/24/2016 12:00 AM Toradol 60 Mg [facility]#8120-1001-21 Reviewed 06/11/2016 12:00 AM Consult/Referral Reviewed 06/11/2016 2:41 PM URINALYSIS AUTO W/O SCOPE Reviewed 06/11/2016 12:00 AM URINE CULTURE/COLONY COUNT Reviewed 06/13/2016 12:00 AM Splint, prefabricated, wrist or ankle Reviewed 07/31/2016 12:00 AM LIPID PANEL Reviewed 07/31/2016 12:00 AM MAMMOGRAPHY SCREENING, DIGITAL Reviewed 10/29/2011 12:00 AM CYSTOMETROGRAM W/TOP POLISHER&UP Reviewed 10/29/2011 12:00 AM ELECTRO-UROFLOWMETRY FIRST Reviewed [...] 12:00 AM Depo-Medrol, Per 120 Mg [facility]#1943-35[address]-84 Reviewed 07/20/2017 12:00 AM INJECT SPINE LUMBAR/SACRAL Returned 2017 12:00 AM COMPLETE CBC W/AUTO DIFF WBC Returned 2017 12:00 AM COMPREHEN METABOLIC PANEL Returned 2017 12:00 AM LIPID PANEL Returned 2017 12:00 AM ASSAY THYROID STIM HORMONE Returned 2017 12:00 AM MAMMOGRAPHY SCREENING, DIGITAL Returned 07/21/2012 12:00 AM THER/PROPH/DIAG INJ SC/IM Reviewed 07/21/2012 12:00 AM Depo-Medrol, Per 120 Mg [facility]#4730-5418-14 Reviewed 10/14/2017 12:38 PM ASSAY GLUCOSE BLOOD QUANT Reviewed 10/14/2017 12:38 PM GLUCOSE BLOOD TEST Reviewed 09/01/2012 12:00 AM Drug Screen (Non-Medicare) Reviewed 09/01/2012 12:00 AM DRAIN/INJ JOINT/BURSA W/O US Reviewed 09/01/2012 12:00 AM Kenalog, Per 10 Mg [facility]#3204-2450-37 Reviewed 11/02/2012 12:00 AM Norflex, Up to 60 Mg [facility]#36965-510-12 Reviewed 11/02/2012 12:00 AM INJ TRIGGER POINT 1/2 MUSCL Reviewed 11/02/2012 12:00 AM Bupivicaine, 30 ml [facility]#2202-3787-33 Reviewed 11/02/2012 12:00 AM THER/PROPH/DIAG INJ SC/IM Reviewed 11/02/2012 12:00 AM Norflex, Up to 60 Mg [facility]#12471-371-69 Reviewed 12/27/2012 12:00 AM COMPLETE CBC W/AUTO DIFF WBC Reviewed 12/27/2012 12:00 AM COMPREHEN METABOLIC PANEL Reviewed 12/27/2012 12:00 AM ASSAY THYROID STIM HORMONE Reviewed 12/27/2012 12:00 AM VITAMIN B-12 Reviewed 12/27/2012 12:00 AM ASSAY OF FERRITIN Reviewed 12/27/2012 12:00 AM ANTINUCLEAR ANTIBODIES Reviewed 12/27/2012 12:00 AM DNA ANTIBODY [place] Reviewed 12/27/2012 12:00 AM NUCLEAR ANTIGEN ANTIBODY [...] 12:00 AM Decadron, Per 1 Mg [place]# [address]-09 Reviewed 05/31/2013 12:00 AM Depo-Medrol, Per 80 Mg ND#4765-6964-98 Reviewed 05/31/2013 12:00 AM THER/PROPH/DIAG INJ SC/IM Reviewed 06/06/2013 12:00 AM MUSCLE TEST 2 LIMBS Reviewed 06/06/2013 12:00 AM Nerve conduction studies with F-wave Reviewed 08/26/2013 12:00 AM MAMMOGRAM SCREENING Reviewed 08/26/2013 12:00 AM MAMMOGRAM SCREENING Reviewed 08/30/2013 12:00 AM THER/PROPH/DIAG INJ SC/IM Reviewed 08/30/2013 12:00 AM Decadron, Per 1 Mg [facility]# [address]-61 Reviewed 08/30/2013 12:00 AM Depo-Medrol, Per 80 Mg ND#5388-0772-79 Reviewed 11/17/2013 12:00 AM THER/PROPH/DIAG INJ SC/IM Reviewed 11/17/2013 12:00 AM Decadron, Per 1 Mg [facility]# [address]-29 Reviewed 11/17/2013 12:00 AM Depo-Medrol 40mg Reviewed 01/06/2014 12:00 AM THER/PROPH/DIAG INJ SC/IM Reviewed 01/06/2014 12:00 AM Decadron, Per 1 Mg [facility]# [address]-10 Reviewed 01/06/2014 12:00 AM Rocephin 1 gram [facility]#1320-0974-06 Reviewed 01/10/2014 12:00 AM OFFICE/OUTPATIENT VISIT EST [...] AM Decadron, Per 1 Mg [facility]# [address]-48 Reviewed 10/12/2014 12:00 AM Depo-Medrol 40mg Reviewed [...] CVX Influenza 03/02/2013 sanofi pasteur PMC FLUZONE [id number] Intramuscular Left Deltoid 03/02/2013 12/17/2012 141 X 02/28/2014 Merck & Co., Inc. MSD PNEUMOVAX 23 [id number] Intramuscular Left Deltoid 02/28/2014 02/27/2009 33 Influenza 03/23/2015 sanofi pasteur PMC Fluzone Quadrivalent [id number] Intramuscular Right Deltoid 03/23/2015 12/29/2014 140 Influenza 03/04/2016 Liquid5ofi pasteur PMC Fluzone Quadrivalent UI 684 AE Intramuscular Left Deltoid 03/04/2016 12/29/2014 141 Tdap 02/20/2017 GlaxoSmithKline SKB BOOSTRIX [id number] Intramuscular Right Arm 02/20/2017 07/18/2014 115 Influenza 02/20/2017 sanofi [employer] PMC Fluzone Quadrivalent [id number] Intramuscular Left Arm 02/20/2017 12/29/2014 150 History [...] 2017 1:06PM Diaphoresis Oct 13 2017 1:06PM Payers Insurance Name Company Name Plan Name Plan Number Policy Number Policy Group Number Start Date [employer] [place] [id number] N/A [employer] [place] [id number] Saturday, 2011 [employer] [place] [id number] N/A [employer] [place] [id number] Thursday, 2013 UMR UMR [id number] N/A [employer] [id number] N/A [employer] [place] [id number] N/A Res Care ResCare [id number] N/A [employer] [id number] N/A Res Care [employer] [id number] DOI [id number] May [employer] [place] [id number] N/A History of Encounters Visit Date Visit Type Provider 10/13/2017 Office visit Chelsea Rodríguez WINE BOTTLE INSPECTOR 2017 Office visit Chelsea Rodríguez WINE BOTTLE INSPECTOR 05/22/2017 Office visit Chelsea Rodríguez WINE BOTTLE INSPECTOR 02/20/2017 Office visit Chelsea Rodríguez WINE BOTTLE INSPECTOR 02/10/2017 Office visit Jeremy West DO 01/31/2017 Office visit Dimitri Beebe NP 11/20/2016 Office visit Chelsea Rodríguez WINE BOTTLE INSPECTOR 08/29/2016 Office visit Chelsea Rodríguez WINE BOTTLE INSPECTOR 07/31/2016 Office visit Chelsea Rodríguez WINE BOTTLE INSPECTOR 06/11/2016 Office visit Chelsea Rodríguez WINE BOTTLE INSPECTOR 06/05/2016 Office visit Leonardo Cowan WINE BOTTLE INSPECTOR 05/14/2016 Office visit Chelsea Rodríguez WINE BOTTLE INSPECTOR 05/05/2016 Office visit Leonardo Cowan WINE BOTTLE INSPECTOR 04/24/2016 Office visit Chelsea Rodríguez WINE BOTTLE INSPECTOR 04/07/2016 Office visit Chelsea Rodríguez WINE BOTTLE INSPECTOR 03/04/2016 Office visit Chelsea Rodríguez WINE BOTTLE INSPECTOR 01/14/2016 Office visit Chelsea Rodríguez WINE BOTTLE INSPECTOR 01/09/2016 Office visit Leonardo Cowan WINE BOTTLE INSPECTOR 01/04/2016 Office visit Leonardo Cowan WINE BOTTLE INSPECTOR 11/27/2015 Office visit Chelsea Rodríguez WINE BOTTLE INSPECTOR 08/23/2015 Office visit Chelsea Rodríguez WINE BOTTLE INSPECTOR 07/19/2015 Office visit 07/19/2015 Office visit Chelsea Rodríguez WINE BOTTLE INSPECTOR 06/21/2015 Office visit Chelsea Rodríguez WINE BOTTLE INSPECTOR 05/03/2015 Nurse visit Adela Cole FUSE CUP EXPANDER 04/12/2015 Office visit Adela Cole FUSE CUP EXPANDER 03/23/2015 Office visit Chelsea Rodríguez WINE BOTTLE INSPECTOR 03/08/2015 Office visit Adela Manjit Cole FUSE CUP EXPANDER 02/14/2015 Office visit Leonardo Cowan WINE BOTTLE INSPECTOR 02/08/2015 Office visit Adela AlexMarcus Douglas PITTMANP 02/07/2015 Office visit Leonardo Cowan WINE BOTTLE INSPECTOR 01/11/2015 Office visit Adela Cole FUSE CUP EXPANDER 12/28/2014 Office visit Chelsea Rodríguez WINE BOTTLE INSPECTOR 12/14/2014 Nurse visit Adela Cole FUSE CUP EXPANDER 11/23/2014 Nurse visit Adela Cole FUSE CUP EXPANDER 10/26/2014 Office visit Adela PITTMANP 10/12/2014 Office visit 10/12/2014 Office visit Chelsea Rodríguez WINE BOTTLE INSPECTOR 10/05/2014 Nurse visit Adela PITTMANP 09/07/2014 Office visit Adela PITTMANP 08/17/2014 Office visit 08/17/2014 Office visit 08/17/2014 Office visit Chelsea Rodríguez WINE BOTTLE INSPECTOR 08/14/2014 Office visit Adela PITTMANP 07/27/2014 Office visit Adela PITTMANP 2014 Office visit Adela PITTMANP 2014 Office visit Mica Lr WINE BOTTLE INSPECTOR 06/28/2014 Nurse visit Adela PITTMANP 05/31/2014 Office visit Adela PITTMANP 05/03/2014 Voided Adela PITTMANP 04/26/2014 Office visit Mica Lr WINE BOTTLE INSPECTOR 04/05/2014 Office visit Adela PITTMANP 03/10/2014 Office visit Adela PITTMANP 02/28/2014 Office visit Mica Lr WINE BOTTLE INSPECTOR 02/24/2014 Office visit Adela PITTMANP 02/06/2014 Office visit Adela PITTMANP 01/10/2014 Nurse visit Suzan Liang MD 01/06/2014 Office visit Mica Lr WINE BOTTLE INSPECTOR 12/15/2013 Office visit Adela PITTMANP 11/17/2013 Office visit Chelsea Rodríguez WINE BOTTLE INSPECTOR 11/17/2013 Office visit Adela PITTMANP 10/20/2013 Office visit Adela PITTMANP 09/22/2013 Office visit Adela AlexMarcus Cole FUSE CUP EXPANDER 08/30/2013 Office visit Chelsea Rodríguez WINE BOTTLE INSPECTOR 08/26/2013 Office visit Beti Reyna WINE BOTTLE INSPECTOR 07/29/2013 Office visit Adela AlexMarcus Cole FUSE CUP EXPANDER 07/06/2013 [facility] Elmira Campbell MD 07/01/2013 Office visit Adela Saravia Douglas FUSE CUP EXPANDER 06/06/2013 Office visit Adela Cole FUSE CUP EXPANDER 05/31/2013 Office visit Chelsea Rodríguez WINE BOTTLE INSPECTOR 05/11/2013 Office visit Adela M. Douglas FUSE CUP EXPANDER 03/22/2013 Office visit Adelacatherine Cole FUSE CUP EXPANDER 03/10/2013 Office visit Adelacatherine Cole FUSE CUP EXPANDER 03/04/2013 Office visit Adela Manjit Douglas FUSE CUP EXPANDER 03/02/2013 Office visit Odette Elam MD 02/22/2013 Office visit Adela M. Douglas FUSE CUP EXPANDER 01/28/2013 Office visit Chelsea Marcos WINE BOTTLE INSPECTOR 01/25/2013 Office visit Adela Manjit Douglas FUSE CUP EXPANDER 12/27/2012 Office visit Adela Cole FUSE CUP EXPANDER 12/07/2012 [facility] Pablo Croft MD 11/24/2012 Office visit Pablo Croft MD 11/02/2012 Office visit Kylah Wright WINE BOTTLE INSPECTOR 11/02/2012 Office visit Mica Lr WINE BOTTLE INSPECTOR 10/05/2012 [facility] Pablo Croft MD 09/30/2012 Office visit Kylah Wright WINE BOTTLE INSPECTOR 09/01/2012 Office visit Kylah Wright WINE BOTTLE INSPECTOR 07/21/2012 Office visit Odette Elam MD 06/16/2012 Office visit Pabol Croft MD 05/11/2012 [facility] Pablo [...]
--- OUTSIDE RECORDS SUMMARY | 2018-02-14 12:52 | XMS REPORT ---
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 [...] Decadron, Per 1 Mg [facility]# [address]-06 Reviewed 11/27/2015 12:00 AM Depo-Medrol 40mg Reviewed [...] 12:00 AM Toradol 60 Mg [facility]#9036-1982-27 Reviewed 06/11/2016 12:00 AM Consult/Referral Reviewed 06/11/2016 2:41 PM URINALYSIS AUTO W/O SCOPE Reviewed 06/11/2016 12:00 AM URINE CULTURE/COLONY COUNT Reviewed 06/13/2016 12:00 AM Splint, prefabricated, wrist or ankle Reviewed 07/31/2016 12:00 AM LIPID PANEL Reviewed 07/31/2016 12:00 AM MAMMOGRAPHY SCREENING, DIGITAL Reviewed 10/29/2011 12:00 AM CYSTOMETROGRAM W/HOUSE WIRER&UP Reviewed 10/29/2011 12:00 AM ELECTRO-UROFLOWMETRY FIRST Reviewed [...] AM Depo-Medrol, Per 120 Mg [facility]#8623-0542-55 Reviewed 07/21/2012 12:00 AM THER/PROPH/DIAG INJ SC/IM Reviewed 07/21/2012 12:00 AM Depo-Medrol, Per 120 Mg [facility]#6427-8740-78 Reviewed 09/01/2012 12:00 AM Drug Screen (Non-Medicare) Reviewed 09/01/2012 12:00 AM DRAIN/INJ JOINT/BURSA W/O US Reviewed 09/01/2012 12:00 AM Kenalog, Per 10 Mg [facility]#1181-7743-73 Reviewed 11/02/2012 12:00 AM Norflex, Up to 60 Mg [facility]#40157-112-03 Reviewed 11/02/2012 12:00 AM INJ TRIGGER POINT 1/2 MUSCL Reviewed 11/02/2012 12:00 AM Bupivicaine, 30 ml [facility]#2576-2831-74 Reviewed 11/02/2012 12:00 AM THER/PROPH/DIAG INJ SC/IM Reviewed 11/02/2012 12:00 AM Norflex, Up to 60 Mg [facility]#35588-353-61 Reviewed 12/27/2012 12:00 AM COMPLETE CBC W/AUTO DIFF WBC Reviewed 12/27/2012 12:00 AM COMPREHEN METABOLIC PANEL Reviewed 12/27/2012 12:00 AM ASSAY THYROID STIM HORMONE Reviewed 12/27/2012 12:00 AM VITAMIN B-12 Reviewed 12/27/2012 12:00 AM ASSAY OF FERRITIN Reviewed 12/27/2012 12:00 AM ANTINUCLEAR ANTIBODIES Reviewed 12/27/2012 12:00 AM DNA ANTIBODY [place] Reviewed 12/27/2012 12:00 AM NUCLEAR ANTIGEN [...] Decadron, Per 1 Mg [facility]# [address]-31 Reviewed 05/31/2013 12:00 AM Depo-Medrol, Per 80 Mg [place]#0237-6527-02 Reviewed 05/31/2013 12:00 AM THER/PROPH/DIAG INJ SC/IM Reviewed 06/06/2013 12:00 AM MUSCLE TEST 2 LIMBS Reviewed 06/06/2013 12:00 AM Nerve conduction studies with F-wave Reviewed 08/26/2013 12:00 AM MAMMOGRAM SCREENING Reviewed 08/26/2013 12:00 AM MAMMOGRAM SCREENING Reviewed 08/30/2013 12:00 AM THER/PROPH/DIAG INJ SC/IM Reviewed 08/30/2013 12:00 AM Decadron, Per 1 Mg [facility]# [address]-07 Reviewed 08/30/2013 12:00 AM Depo-Medrol, Per 80 Mg [facility]#0057-3397-92 Reviewed 11/17/2013 12:00 AM THER/PROPH/DIAG INJ SC/IM Reviewed 11/17/2013 12:00 AM Decadron, Per 1 Mg [facility]# [address]-88 Reviewed 11/17/2013 12:00 AM Depo-Medrol 40mg Reviewed 01/06/2014 12:00 AM THER/PROPH/DIAG INJ SC/IM Reviewed 01/06/2014 12:00 AM Decadron, Per 1 Mg [facility]# [address]-48 Reviewed 01/06/2014 12:00 AM Rocephin 1 gram [facility]#1487-2173-97 Reviewed 01/10/2014 12:00 AM OFFICE/OUTPATIENT VISIT EST [...] Decadron, Per 1 Mg [facility]# [address]-54 Reviewed 10/12/2014 12:00 AM Depo-Medrol 40mg Reviewed [...] CVX Influenza 03/02/2013 sanofi pasteur PMC Fluzone [id number] Intramuscular Left Deltoid 03/02/2013 12/17/2012 141 X 02/28/2014 Merck & Co., Inc. MSD Pneumovax 23 [id number] Intramuscular Left Deltoid 02/28/2014 02/27/2009 33 Influenza 03/23/2015 sanofi pasteur PMC Fluzone Quadrivalent [id number] Intramuscular Right Deltoid 03/23/2015 12/29/2014 140 Influenza 03/04/2016 sanofi pasteur PMC Fluzone Quadrivalent UI 684 AE Intramuscular Left Deltoid 03/04/2016 12/29/2014 141 Tdap 02/20/2017 GlaxoSmithKline SKB BOOSTRIX [id number] Intramuscular Right Arm 02/20/2017 07/18/2014 115 Influenza 02/20/2017 sanofi pasteur PMC Fluzone Quadrivalent [id number] Intramuscular Left Arm 02/20/2017 12/29/2014 150 History [...] Other chronic pain May 22 2017 10:39AM Payers Insurance Name Company Name Plan Name Plan Number Policy Number Policy Group Number Start Date [employer] [place] [id number] N/A [employer] [place] [id number] Saturday, 2011 [employer] [place] [id number] N/A [employer] [place] [id number] Thursday, 2013 UMR UMR [id number] N/A [employer] [id number] N/A [employer] [place] [id number] N/A Res Care [employer] [id number] N/A [employer] [id number] N/A Res Care [employer] [id number] DOI [id number] May [employer] [place] [id number] N/A History of Encounters Visit Date Visit Type Provider 05/22/2017 Office visit Chelsea Rodríguez MASTER FIRE CONTROL TECHNICIAN 02/20/2017 Office visit Chelsea Rodríguez MASTER FIRE CONTROL TECHNICIAN 02/10/2017 Office visit Jeremy West DO 01/31/2017 Office visit Dimitri Beebe NP 11/20/2016 Office visit Chelsea Rodríguez MASTER FIRE CONTROL TECHNICIAN 08/29/2016 Office visit Chelsea Rodríguez MASTER FIRE CONTROL TECHNICIAN 07/31/2016 Office visit Chelsea Rodríguez MASTER FIRE CONTROL TECHNICIAN 06/11/2016 Office visit Chelsea Rodríguez MASTER FIRE CONTROL TECHNICIAN 06/05/2016 Office visit Leonardo Cowan MASTER FIRE CONTROL TECHNICIAN 05/14/2016 Office visit Chelsea Rodríguez MASTER FIRE CONTROL TECHNICIAN 05/05/2016 Office visit Leonardo Cowan MASTER FIRE CONTROL TECHNICIAN 04/24/2016 Office visit Chelsea Rodríguez MASTER FIRE CONTROL TECHNICIAN 04/07/2016 Office visit Chelsea Rodríguez MASTER FIRE CONTROL TECHNICIAN 03/04/2016 Office visit Chelsea Rodríguez MASTER FIRE CONTROL TECHNICIAN 01/14/2016 Office visit Chelsea Rodríguez MASTER FIRE CONTROL TECHNICIAN 01/09/2016 Office visit Leonardo Cowan MASTER FIRE CONTROL TECHNICIAN 01/04/2016 Office visit Leonardo Cowan MASTER FIRE CONTROL TECHNICIAN 11/27/2015 Office visit Chelsea Rodríguez MASTER FIRE CONTROL TECHNICIAN 08/23/2015 Office visit Chelsea Rodríguez MASTER FIRE CONTROL TECHNICIAN 07/19/2015 Office visit 07/19/2015 Office visit Chelsea Rodríguez MASTER FIRE CONTROL TECHNICIAN 06/21/2015 Office visit Chelsea Rodríguez MASTER FIRE CONTROL TECHNICIAN 05/03/2015 Nurse visit Adela Cole FAMILY RESOURCE MANAGEMENT SPECIALIST 04/12/2015 Office visit Adela Cole FAMILY RESOURCE MANAGEMENT SPECIALIST 03/23/2015 Office visit Chelsea Rodríguez MASTER FIRE CONTROL TECHNICIAN 03/08/2015 Office visit Adela Manjit Cole FAMILY RESOURCE MANAGEMENT SPECIALIST 02/14/2015 Office visit Leonardo Cowan MASTER FIRE CONTROL TECHNICIAN 02/08/2015 Office visit Adela AlexMarcus Douglas PITTMANP 02/07/2015 Office visit Leonardo Cowan MASTER FIRE CONTROL TECHNICIAN 01/11/2015 Office visit Adela Cole FAMILY RESOURCE MANAGEMENT SPECIALIST 12/28/2014 Office visit Chelsea Rodríguez MASTER FIRE CONTROL TECHNICIAN 12/14/2014 Nurse visit Adela Cole FAMILY RESOURCE MANAGEMENT SPECIALIST 11/23/2014 Nurse visit Adela Cole FAMILY RESOURCE MANAGEMENT SPECIALIST 10/26/2014 Office visit Adela PITTMANP 10/12/2014 Office visit 10/12/2014 Office visit Chelsea Rodríguez MASTER FIRE CONTROL TECHNICIAN 10/05/2014 Nurse visit Adela PITTMANP 09/07/2014 Office visit Adela PITTMANP 08/17/2014 Office visit 08/17/2014 Office visit 08/17/2014 Office visit Chelsea Rodríguez MASTER FIRE CONTROL TECHNICIAN 08/14/2014 Office visit Adela PITTMANP 07/27/2014 Office visit Adela PITTMANP 2014 Office visit Adela PITTMANP 2014 Office visit Mica Lr MASTER FIRE CONTROL TECHNICIAN 06/28/2014 Nurse visit Adela PITTMANP 05/31/2014 Office visit Adela PITTMANP 05/03/2014 Voided Adela PITTMANP 04/26/2014 Office visit Mica Lr MASTER FIRE CONTROL TECHNICIAN 04/05/2014 Office visit Adela PITTMANP 03/10/2014 Office visit Adela PITTMANP 02/28/2014 Office visit Mica Lr MASTER FIRE CONTROL TECHNICIAN 02/24/2014 Office visit Adela PITTMANP 02/06/2014 Office visit Adela PITTMANP 01/10/2014 Nurse visit Suzan Liang MD 01/06/2014 Office visit Mica Lr MASTER FIRE CONTROL TECHNICIAN 12/15/2013 Office visit Adela PITTMANP 11/17/2013 Office visit Chelsea Rodríguez MASTER FIRE CONTROL TECHNICIAN 11/17/2013 Office visit Adela PITTMANP 10/20/2013 Office visit Adela PITTMANP 09/22/2013 Office visit Adela AlexMarcus Cole FAMILY RESOURCE MANAGEMENT SPECIALIST 08/30/2013 Office visit Chelsea Rodríguez MASTER FIRE CONTROL TECHNICIAN 08/26/2013 Office visit Beti Reyna MASTER FIRE CONTROL TECHNICIAN 07/29/2013 Office visit Adela AlexMarcus Cole FAMILY RESOURCE MANAGEMENT SPECIALIST 07/06/2013 [facility] Elmira Campbell MD 07/01/2013 Office visit Adela Saravia Douglas FAMILY RESOURCE MANAGEMENT SPECIALIST 06/06/2013 Office visit Adela Cole FAMILY RESOURCE MANAGEMENT SPECIALIST 05/31/2013 Office visit Chelsea Rodríguez MASTER FIRE CONTROL TECHNICIAN 05/11/2013 Office visit Adela M. Douglas FAMILY RESOURCE MANAGEMENT SPECIALIST 03/22/2013 Office visit Adelacatherine Cole FAMILY RESOURCE MANAGEMENT SPECIALIST 03/10/2013 Office visit Adelacatherine Cole FAMILY RESOURCE MANAGEMENT SPECIALIST 03/04/2013 Office visit Adela Manjit Douglas FAMILY RESOURCE MANAGEMENT SPECIALIST 03/02/2013 Office visit Odette Elam MD 02/22/2013 Office visit Adela M. Douglas FAMILY RESOURCE MANAGEMENT SPECIALIST 01/28/2013 Office visit Chelsea Marcos MASTER FIRE CONTROL TECHNICIAN 01/25/2013 Office visit Adela Manjit Douglas FAMILY RESOURCE MANAGEMENT SPECIALIST 12/27/2012 Office visit Adela Cole FAMILY RESOURCE MANAGEMENT SPECIALIST 12/07/2012 [facility] Pablo Croft MD 11/24/2012 Office visit Pablo Croft MD 11/02/2012 Office visit Kylah Wright MASTER FIRE CONTROL TECHNICIAN 11/02/2012 Office visit Mica Lr MASTER FIRE CONTROL TECHNICIAN 10/05/2012 [facility] Pablo Croft MD 09/30/2012 Office visit Kylah Wright MASTER FIRE CONTROL TECHNICIAN 09/01/2012 Office visit Kylah Wright MASTER FIRE CONTROL TECHNICIAN 07/21/2012 Office visit Odette Elam MD [...]
--- OUTSIDE RECORDS SUMMARY | 2018-02-14 12:55 | XMS REPORT ---
Author Chelsea Soliz Organization [facility] Address [address] [place], [place] [address] Care Team Providers Care Textile Engineer Name Role Phone Chelsea Rodríguez PCP Unavailable [...] then Take 1 tab x 2 days. [place] 10-325 mg oral tablet 05/03/2015 06/02/2015 take [...] and screen Returned 10/29/2011 12:00 AM CYSTOMETROGRAM W/BUYER AGENT&UP Reviewed 10/29/2011 12:00 AM ELECTRO-UROFLOWMETRY FIRST Reviewed 10/29/2011 12:00 AM INTRAABDOMINAL PRESSURE TEST Reviewed 11/12/2011 12:00 AM X-RAY URETHRA/BLADDER Reviewed 11/12/2011 12:00 AM X-RAY EXAM SI JOINTS 3/> VWS Reviewed 01/28/2012 12:00 AM MRI LUMBAR SPINE W/O DYE Returned 04/20/2012 12:00 AM THER/PROPH/DIAG INJ SC/IM Reviewed 04/20/2012 12:00 AM Depo-Medrol, Per 120 Mg [facility]#1672-7118-46 Reviewed 07/21/2012 12:00 AM THER/PROPH/DIAG INJ SC/IM Reviewed 07/21/2012 12:00 AM Depo-Medrol, Per 120 Mg [facility]#9214-8999-41 Reviewed 09/01/2012 12:00 AM Drug Screen (Non-Medicare) Reviewed 09/01/2012 12:00 AM Kenalog, Per 10 Mg [facility]#1997-4091-85 Reviewed 11/02/2012 12:00 AM Norflex, Up to 60 Mg [facility]#03714-788-24 Reviewed 11/02/2012 12:00 AM INJ TRIGGER POINT 1/2 MUSCL Reviewed 11/02/2012 12:00 AM Bupivicaine, 30 ml [facility]#7360-8228-36 Reviewed 11/02/2012 12:00 AM THER/PROPH/DIAG INJ SC/IM Reviewed 11/02/2012 12:00 AM Norflex, Up to 60 Mg [facility]#98472-464-35 Reviewed 12/27/2012 12:00 AM COMPLETE CBC W/AUTO DIFF WBC Returned 12/27/2012 12:00 AM COMPREHEN METABOLIC PANEL Returned 12/27/2012 12:00 AM ASSAY THYROID STIM HORMONE Returned 12/27/2012 12:00 AM VITAMIN B-12 Returned 12/27/2012 12:00 AM ASSAY OF FERRITIN Returned 12/27/2012 12:00 AM ANTINUCLEAR ANTIBODIES Reviewed 12/27/2012 12:00 AM DNA ANTIBODY [place] Reviewed 12/27/2012 12:00 AM NUCLEAR ANTIGEN ANTIBODY [...] 1 Mg [facility]# [address]-34 Reviewed 05/31/2013 12:00 AM Depo-Medrol, Per 80 Mg [facility]#1124-8960-56 Reviewed 05/31/2013 12:00 AM THER/PROPH/DIAG INJ SC/IM Reviewed 06/06/2013 12:00 AM MUSCLE TEST 2 LIMBS Reviewed 06/06/2013 12:00 AM Nerve conduction studies with F-wave Reviewed 08/26/2013 12:00 AM MAMMOGRAM SCREENING Returned 08/26/2013 12:00 AM MAMMOGRAM SCREENING Reviewed 08/30/2013 12:00 AM THER/PROPH/DIAG INJ SC/IM Reviewed 08/30/2013 12:00 AM Decadron, Per 1 Mg [facility]# [address]-14 Reviewed 08/30/2013 12:00 AM Depo-Medrol, Per 80 Mg [facility]#7509-1084-17 Reviewed 11/17/2013 12:00 AM THER/PROPH/DIAG INJ SC/IM Reviewed 11/17/2013 12:00 AM Decadron, Per 1 Mg [facility]# [address]-36 Reviewed 11/17/2013 12:00 AM Depo-Medrol 40mg Reviewed 01/06/2014 12:00 AM THER/PROPH/DIAG INJ SC/IM Reviewed 01/06/2014 12:00 AM Decadron, Per 1 Mg [facility]# [address]-37 Reviewed 01/06/2014 12:00 AM Rocephin 1 gram [facility]#0070-3267-63 Reviewed 01/10/2014 12:00 AM OFFICE/OUTPATIENT VISIT EST [...] 1 Mg [facility]# [address]-18 Reviewed 10/12/2014 12:00 AM Depo-Medrol 40mg Reviewed [...] CVX Influenza 03/02/2013 sanofi pasteur PMC Fluzone [id number] Intramuscular Left Deltoid 03/02/2013 12/17/2012 141 Pneumococcal 02/28/2014 Merck & Co., Inc. MSD Pneumovax 23 [id number] Intramuscular Left Deltoid 02/28/2014 02/27/2009 33 Influenza 03/23/2015 sanofi pasteur PMC Fluzone Quadrivalent [id number] Intramuscular Right Deltoid 03/23/2015 12/29/2014 140 History [...] SI joint pain Sep 01 2012 3:06PM care home medication use Sep 01 2012 4:05PM [...] Policy Group Number Start Date R [facility] [id number] N[facility] [employer] [facility] [id number] N/A BCBS [employer] [facility] [id number] Saturday, 2011 BCBS [employer] [place] [id number] N/A [employer]BS [employer] [facility] [id number] Thursday, 2013 History of Encounters Visit Date Visit Type Provider 06/21/2015 Office visit Chelsea Rodríguez IRON MOLDER HELPER 05/03/2015 Nurse visit Adela Cole INTERNATIONAL SALES REPRESENTATIVE 04/12/2015 Office visit Adela MMarcus Cole INTERNATIONAL SALES REPRESENTATIVE 03/23/2015 Office visit Chelsea Rodríguez IRON MOLDER HELPER 03/08/2015 Office visit Adela Manjit Cole INTERNATIONAL SALES REPRESENTATIVE 02/14/2015 Office visit Leonardo Cowan IRON MOLDER HELPER 02/08/2015 Office visit Adela AlexMarcus Douglas PITTMANP 02/07/2015 Office visit Leonardo Cowan IRON MOLDER HELPER 01/11/2015 Office visit Adela Cole INTERNATIONAL SALES REPRESENTATIVE 12/28/2014 Office visit Chelsea Rodríguez IRON MOLDER HELPER 12/14/2014 Nurse visit Adela Cole INTERNATIONAL SALES REPRESENTATIVE 11/23/2014 Nurse visit Adela Cole INTERNATIONAL SALES REPRESENTATIVE 10/26/2014 Office visit Adela Cole INTERNATIONAL SALES REPRESENTATIVE 10/12/2014 Office visit 10/12/2014 Office visit Chelsea Rodríguez IRON MOLDER HELPER 10/05/2014 Nurse visit Adela Cole INTERNATIONAL SALES REPRESENTATIVE 09/07/2014 Office visit Adela PITTMANP 08/17/2014 Office visit 08/17/2014 Office visit 08/17/2014 Office visit Chelsea Rodríguez IRON MOLDER HELPER 08/14/2014 Office visit Adela PITTMANP 07/27/2014 Office visit Adela PITTMANP 2014 Office visit Adela PITTMANP 2014 Office visit Mica Lr IRON MOLDER HELPER 06/28/2014 Nurse visit Adela PITTMANP 05/31/2014 Office visit Adela PITTMANP 05/03/2014 Voided Adela PITTMANP 04/26/2014 Office visit Mica Lr IRON MOLDER HELPER 04/05/2014 Office visit Adela PITTMANP 03/10/2014 Office visit Adela PITTMANP 02/28/2014 Office visit Mica Lr IRON MOLDER HELPER 02/24/2014 Office visit Adela PITTMANP 02/06/2014 Office visit Adela PITTMANP 01/10/2014 Nurse visit Suzan Liang MD 01/06/2014 Office visit Mica Lr IRON MOLDER HELPER 12/15/2013 Office visit Adela PITTMANP 11/17/2013 Office visit Chelsea Rodríguez IRON MOLDER HELPER 11/17/2013 Office visit Adela PITTMANP 10/20/2013 Office visit Adela PITTMANP 09/22/2013 Office visit Adela PITTMANP 08/30/2013 Office visit Chelsea Rodríguez IRON MOLDER HELPER 08/26/2013 Office visit Beti Reyna IRON MOLDER HELPER 07/29/2013 Office visit Adela Cole INTERNATIONAL SALES REPRESENTATIVE 07/06/2013 Procedures Elmira Campbell MD 07/01/2013 Office visit Adela AlexMarcus Cole INTERNATIONAL SALES REPRESENTATIVE 06/06/2013 Office visit Adela Cole INTERNATIONAL SALES REPRESENTATIVE 05/31/2013 Office visit Chelsea Rodríguez IRON MOLDER HELPER 05/11/2013 Office visit Adela Saravia Douglas INTERNATIONAL SALES REPRESENTATIVE 03/22/2013 Office visit Adela M. Douglas INTERNATIONAL SALES REPRESENTATIVE 03/10/2013 Office visit Adelacatherine Cole INTERNATIONAL SALES REPRESENTATIVE 03/04/2013 Office visit Adela Manjit Douglas INTERNATIONAL SALES REPRESENTATIVE 03/02/2013 Office visit Odette Elam MD 02/22/2013 Office visit Adela AlexMarcus Cole INTERNATIONAL SALES REPRESENTATIVE 01/28/2013 Office visit Chelsea Rodríguez IRON MOLDER HELPER 01/25/2013 Office visit Adela Manjit Douglas INTERNATIONAL SALES REPRESENTATIVE 12/27/2012 Office visit Adela Cole INTERNATIONAL SALES REPRESENTATIVE 12/07/2012 Hospital Pablo Croft MD 11/24/2012 Office visit Pablo Croft MD 11/02/2012 Office visit Kylah Wright IRON MOLDER HELPER 11/02/2012 Office visit Mica Lr IRON MOLDER HELPER 10/05/2012 Hospital Pablo Croft MD 09/30/2012 Office visit Kylah Wright IRON MOLDER HELPER 09/01/2012 Office visit Kylah Wright IRON MOLDER HELPER 07/21/2012 Office visit Odette Elam MD [...] Bowens MD 11/12/2011 Office visit Alison Antoine IRON MOLDER HELPER 10/28/2011 Procedures Reji Bowens MD 10/07/2011 [...]
--- OUTSIDE RECORDS SUMMARY | 2018-02-14 13:04 | XMS REPORT ---
Author Author Chelsea Rodríguez Organization [facility] Address [address] [place], [place] [id number] Care Team Providers Care Head Teacher Name Role Phone Chelsea Rodríguez PCP Chelsea [...] take 1 tablet by oral route daily Name Start Date Expiration Date SIG [...] then Take 1 tab x 2 days. 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 History of Procedures [...] 11/27/2015 12:00 AM Decadron, Per 1 Mg [facility]# [address]-69 Reviewed 11/27/2015 12:00 AM Depo-Medrol 40mg Reviewed [...] Reviewed 04/24/2016 12:00 AM Toradol 60 Mg [facility]#9058-5380-29 Reviewed 06/11/2016 12:00 AM Consult/Referral Reviewed 06/11/2016 2:41 PM URINALYSIS AUTO W/O SCOPE Reviewed 06/11/2016 12:00 AM URINE CULTURE/COLONY COUNT Reviewed 06/13/2016 12:00 AM Splint, prefabricated, wrist or ankle Reviewed 07/31/2016 12:00 AM LIPID PANEL Reviewed 07/31/2016 12:00 AM MAMMOGRAPHY SCREENING, DIGITAL Reviewed 10/29/2011 12:00 AM CYSTOMETROGRAM W/RADIOGRAPHY TECHNICIAN&UP Reviewed 10/29/2011 12:00 AM ELECTRO-UROFLOWMETRY FIRST [...] 04/20/2012 12:00 AM Depo-Medrol, Per 120 Mg [facility]#2185-5592-23 Reviewed 07/21/2012 12:00 AM THER/PROPH/DIAG INJ SC/IM Reviewed 07/21/2012 12:00 AM Depo-Medrol, Per 120 Mg [facility]#2789-5554-53 Reviewed 09/01/2012 12:00 AM Drug Screen (Non-Medicare) Reviewed 09/01/2012 12:00 AM DRAIN/INJ JOINT/BURSA W/O US Reviewed 09/01/2012 12:00 AM Kenalog, Per 10 Mg [facility]#0324-3722-67 Reviewed 11/02/2012 12:00 AM Norflex, Up to 60 Mg [facility]#48386-762-96 Reviewed 11/02/2012 12:00 AM INJ TRIGGER POINT 1/2 MUSCL Reviewed 11/02/2012 12:00 AM Bupivicaine, 30 ml [facility]#5160-3264-14 Reviewed 11/02/2012 12:00 AM THER/PROPH/DIAG INJ SC/IM Reviewed 11/02/2012 12:00 AM Norflex, Up to 60 Mg [facility]#07829-645-22 Reviewed 12/27/2012 12:00 AM COMPLETE CBC W/AUTO DIFF WBC Reviewed 12/27/2012 12:00 AM COMPREHEN METABOLIC PANEL Reviewed 12/27/2012 12:00 AM ASSAY THYROID STIM HORMONE Reviewed 12/27/2012 12:00 AM VITAMIN B-12 Reviewed 12/27/2012 12:00 AM ASSAY OF FERRITIN Reviewed 12/27/2012 12:00 AM ANTINUCLEAR ANTIBODIES Reviewed 12/27/2012 12:00 AM DNA ANTIBODY BURNS PAIUTE Reviewed 12/27/2012 12:00 AM NUCLEAR ANTIGEN ANTIBODY [...] 12:00 AM Decadron, Per 1 Mg ND# [address]-06 Reviewed 05/31/2013 12:00 AM Depo-Medrol, Per 80 Mg ND#7478-6439-03 Reviewed 05/31/2013 12:00 AM THER/PROPH/DIAG INJ SC/IM Reviewed 06/06/2013 12:00 AM MUSCLE TEST 2 LIMBS Reviewed 06/06/2013 12:00 AM Nerve conduction studies with F-wave Reviewed 08/26/2013 12:00 AM MAMMOGRAM SCREENING Reviewed 08/26/2013 12:00 AM MAMMOGRAM SCREENING Reviewed 08/30/2013 12:00 AM THER/PROPH/DIAG INJ SC/IM Reviewed 08/30/2013 12:00 AM Decadron, Per 1 Mg [facility]# [address]-30 Reviewed 08/30/2013 12:00 AM Depo-Medrol, Per 80 Mg ND#9045-2035-32 Reviewed 11/17/2013 12:00 AM THER/PROPH/DIAG INJ SC/IM Reviewed 11/17/2013 12:00 AM Decadron, Per 1 Mg [facility]# [address]-46 Reviewed 11/17/2013 12:00 AM Depo-Medrol 40mg Reviewed 01/06/2014 12:00 AM THER/PROPH/DIAG INJ SC/IM Reviewed 01/06/2014 12:00 AM Decadron, Per 1 Mg [facility]# [address]-30 Reviewed 01/06/2014 12:00 AM Rocephin 1 gram ND#1048-4150-66 Reviewed 01/10/2014 12:00 AM OFFICE/OUTPATIENT VISIT EST [...] 10/12/2014 12:00 AM Decadron, Per 1 Mg [facility]# [address]-84 Reviewed 10/12/2014 12:00 AM Depo-Medrol 40mg Reviewed [...] CVX Influenza 03/02/2013 sanofi pasteur PMC Fluzone [id number] Intramuscular Left Deltoid 03/02/2013 12/17/2012 141 X 02/28/2014 Merck & Co., Inc. MSD Pneumovax 23 [id number] Intramuscular Left Deltoid 02/28/2014 02/27/2009 33 Influenza 03/23/2015 sanofi pasteur PMC Fluzone Quadrivalent [id number] Intramuscular Right Deltoid 03/23/2015 12/29/2014 140 Influenza 03/04/2016 sanofi pasteur PMC Fluzone Quadrivalent UI 684 AE Intramuscular Left Deltoid 03/04/2016 12/29/2014 141 Tdap 02/20/2017 Modality SKB BOOSTRIX [id number] Intramuscular Right Arm 02/20/2017 07/18/2014 115 Influenza 02/20/2017 [facility] Fluzone Quadrivalent [id number] Intramuscular Left Arm 02/20/2017 12/29/2014 150 History [...] Group Number Start Date [employer] [place] [id number] N/A [employer] [place] [id number] Saturday, 2011 [employer] [place] [id number] N/A [employer] [place] [id number] Thursday, 2013 UMR UMR [id number] N/A [employer] Braums [id number] N/A [employer] [place] [id number] N/A Res Care ResCare [id number] N/A [employer] [id number] N/A Res Care [employer] [id number] DOI [id number] May [employer] [place] [id number] N/A History of Encounters Visit Date Visit Type Provider 05/22/2017 Office visit Chelsea Rodríguez PADDING GLUER 02/20/2017 Office visit Chelsea Rodríguez PADDING GLUER 02/10/2017 Office visit Jeremy West DO 01/31/2017 Office visit Dimitri Beebe NP 11/20/2016 Office visit Chelsea Rodríguez PADDING GLUER 08/29/2016 Office visit Chelsea Rodríguez PADDING GLUER 07/31/2016 Office visit Chelsea Rodríguez PADDING GLUER 06/11/2016 Office visit Chelsea Rodríguez PADDING GLUER 06/05/2016 Office visit Leonardo Cowan PADDING GLUER 05/14/2016 Office visit Chelsea Rodríguez PADDING GLUER 05/05/2016 Office visit Leonardo Cowan PADDING GLUER 04/24/2016 Office visit Chelsea Rodríguez PADDING GLUER 04/07/2016 Office visit Chelsea Rodríguez PADDING GLUER 03/04/2016 Office visit Chelsea Rodríguez PADDING GLUER 01/14/2016 Office visit Chelsea Rodríguez PADDING GLUER 01/09/2016 Office visit Leonardo Cowan PADDING GLUER 01/04/2016 Office visit Leonardo Cowan PADDING GLUER 11/27/2015 Office visit Chelsea Rodríguez PADDING GLUER 08/23/2015 Office visit Chelsea Rodríguez PADDING GLUER 07/19/2015 Office visit 07/19/2015 Office visit Chelsea Rodríguez PADDING GLUER 06/21/2015 Office visit Chelsea Rodríguez PADDING GLUER 05/03/2015 Nurse visit Adela Cole TOE POUNDER 04/12/2015 Office visit Adela Cole TOE POUNDER 03/23/2015 Office visit Chelsea Rodríguez PADDING GLUER 03/08/2015 Office visit Adela Cole TOE POUNDER 02/14/2015 Office visit Leonardo Cowan PADDING GLUER 02/08/2015 Office visit Adela Cole TOE POUNDER 02/07/2015 Office visit Leonardo Cowan PADDING GLUER 01/11/2015 Office visit Adela Cole TOE POUNDER 12/28/2014 Office visit Chelsea Rodríguez PADDING GLUER 12/14/2014 Nurse visit Adela Cole TOE POUNDER 11/23/2014 Nurse visit Adela PITTMANP 10/26/2014 Office visit Adela PITTMANP 10/12/2014 Office visit 10/12/2014 Office visit Chelsea Rodríguez PADDING GLUER 10/05/2014 Nurse visit Adela PITTMANP 09/07/2014 Office visit Adela PITTMANP 08/17/2014 Office visit 08/17/2014 Office visit 08/17/2014 Office visit Chelsea Rodríguez PADDING GLUER 08/14/2014 Office visit Adela PITTMANP 07/27/2014 Office visit Adela PITTMANP 2014 Office visit Adela PITTMANP 2014 Office visit Mica Lr PADDING GLUER 06/28/2014 Nurse visit Adela PITTMANP 05/31/2014 Office visit Adela PITTMANP 05/03/2014 Voided Adela PITTMANP 04/26/2014 Office visit Mica Lr PADDING GLUER 04/05/2014 Office visit Adela PITTMANP 03/10/2014 Office visit Adela PITTMANP 02/28/2014 Office visit Mica Lr PADDING GLUER 02/24/2014 Office visit Adela PITTMANP 02/06/2014 Office visit Adela PITTMANP 01/10/2014 Nurse visit Suzan Liang MD 01/06/2014 Office visit Mica Lr PADDING GLUER 12/15/2013 Office visit Adela PITTMANP 11/17/2013 Office visit Chelsea Rodríguez PADDING GLUER 11/17/2013 Office visit Adela PITTMANP 10/20/2013 Office visit Adela M. Douglas TOE POUNDER 09/22/2013 Office visit Adela Cole TOE POUNDER 08/30/2013 Office visit Chelsea Rodríguez PADDING GLUER 08/26/2013 Office visit Beti Manjit Reyna PADDING GLUER 07/29/2013 Office visit Adela Saravia Douglas TOE POUNDER 07/06/2013 [facility] Elmira Campbell MD 07/01/2013 Office visit Adela Cole TOE POUNDER 06/06/2013 Office visit Adela Cole TOE POUNDER 05/31/2013 Office visit Chelsea Rodríguez PADDING GLUER 05/11/2013 Office visit Adela Cole TOE POUNDER 03/22/2013 Office visit Adela Cole TOE POUNDER 03/10/2013 Office visit Adela Cole TOE POUNDER 03/04/2013 Office visit Adela Saravia Douglas TOE POUNDER 03/02/2013 Office visit Odette Elam MD 02/22/2013 Office visit Adela M. Douglas TOE POUNDER 01/28/2013 Office visit Chelsea Rodríguez PADDING GLUER 01/25/2013 Office visit Adela M. Douglas TOE POUNDER 12/27/2012 Office visit Adela Manjit Douglas TOE POUNDER 12/07/2012 [facility] Pablo Croft MD 11/24/2012 Office visit Pablo Croft MD 11/02/2012 Office visit Kylah Wright PADDING GLUER 11/02/2012 Office visit Mica Lr PADDING GLUER 10/05/2012 [facility] Pablo Croft MD 09/30/2012 Office visit Kylah Wright PADDING GLUER 09/01/2012 Office visit Kylah Wright PADDING GLUER 07/21/2012 Office visit Odette Elam MD 06/16/2012 Office visit Pablo Croft MD 05/11/2012 [facility] Pablo Croft MD 04/28/2012 Office visit Pablo Croft MD 04/20/2012 Office visit Odette Elam MD 03/29/2012 Office visit Pablo Croft MD 03/16/2012 [facility] Pablo Croft MD 03/09/2012 [facility] [...]
--- OUTSIDE RECORDS SUMMARY | 2018-02-14 13:08 | XMS REPORT ---
Author Author Chelsea Rodríguez Organization [facility] Address [address] [place], [place] [id number] Care Team Providers Care Toll Lineman Name Role Phone Chelsea Rodríguez PCP Chelsea [...] at bedtime alprazolam 0.5 mg oral tablet 11/04/2017 02/02/2018 take 1 tablet by oral route Q6 PRN for 30 days Augmentin 875-125 mg oral tablet 11/04/2017 11/11/2017 [...] then Take 1 tab x 2 days. 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 [...] Decadron, Per 1 Mg [facility]# [address]-56 Reviewed 11/27/2015 12:00 AM Depo-Medrol 40mg Reviewed [...] 04/24/2016 12:00 AM Toradol 60 Mg [facility]#1142-2409-97 Reviewed 06/11/2016 12:00 AM Consult/Referral Reviewed 06/11/2016 2:41 PM URINALYSIS AUTO W/O SCOPE Reviewed 06/11/2016 12:00 AM URINE CULTURE/COLONY COUNT Reviewed 06/13/2016 12:00 AM Splint, prefabricated, wrist or ankle Reviewed 07/31/2016 12:00 AM LIPID PANEL Reviewed 07/31/2016 12:00 AM MAMMOGRAPHY SCREENING, DIGITAL Reviewed 10/29/2011 12:00 AM 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 Reviewed 10/29/2011 12:00 AM ELECTRO-UROFLOWMETRY FIRST [...] Depo-Medrol, Per 120 Mg [facility]#0142-7352-23 Reviewed 07/20/2017 12:00 AM INJECT SPINE LUMBAR/SACRAL Returned 2017 12:00 AM COMPLETE CBC W/AUTO DIFF WBC Returned 2017 12:00 AM COMPREHEN METABOLIC PANEL Returned 2017 12:00 AM LIPID PANEL Returned 2017 12:00 AM ASSAY THYROID STIM HORMONE Returned 2017 12:00 AM MAMMOGRAPHY SCREENING, DIGITAL Returned 07/21/2012 12:00 AM THER/PROPH/DIAG INJ SC/IM Reviewed 07/21/2012 12:00 AM Depo-Medrol, Per 120 Mg [facility]#5775-2748-72 Reviewed 10/14/2017 12:38 PM ASSAY GLUCOSE BLOOD QUANT Reviewed 10/14/2017 12:38 PM GLUCOSE BLOOD TEST Reviewed 09/01/2012 12:00 AM Drug Screen (Non-Medicare) Reviewed 09/01/2012 12:00 AM DRAIN/INJ JOINT/BURSA W/O US Reviewed 09/01/2012 12:00 AM Kenalog, Per 10 Mg [facility]#6824-7426-85 Reviewed 11/02/2012 12:00 AM Norflex, Up to 60 Mg [facility]#98443-416-88 Reviewed 11/02/2012 12:00 AM INJ TRIGGER POINT 1/2 MUSCL Reviewed 11/02/2012 12:00 AM Bupivicaine, 30 ml [facility]#1111-2788-31 Reviewed 11/02/2012 12:00 AM THER/PROPH/DIAG INJ SC/IM Reviewed 11/02/2012 12:00 AM Norflex, Up to 60 Mg [facility]#87720-540-06 Reviewed 12/27/2012 12:00 AM COMPLETE CBC W/AUTO DIFF WBC Reviewed 12/27/2012 12:00 AM COMPREHEN METABOLIC PANEL Reviewed 12/27/2012 12:00 AM ASSAY THYROID STIM HORMONE Reviewed 12/27/2012 12:00 AM VITAMIN B-12 Reviewed 12/27/2012 12:00 AM ASSAY OF FERRITIN Reviewed 12/27/2012 12:00 AM ANTINUCLEAR ANTIBODIES Reviewed 12/27/2012 12:00 AM DNA ANTIBODY CROW Reviewed 12/27/2012 12:00 AM NUCLEAR ANTIGEN ANTIBODY [...] Decadron, Per 1 Mg [facility]# [address]-35 Reviewed 05/31/2013 12:00 AM Depo-Medrol, Per 80 Mg [facility]#9991-2282-94 Reviewed 05/31/2013 12:00 AM THER/PROPH/DIAG INJ SC/IM Reviewed 06/06/2013 12:00 AM MUSCLE TEST 2 LIMBS Reviewed 06/06/2013 12:00 AM Nerve conduction studies with F-wave Reviewed 08/26/2013 12:00 AM MAMMOGRAM SCREENING Reviewed 08/26/2013 12:00 AM MAMMOGRAM SCREENING Reviewed 08/30/2013 12:00 AM THER/PROPH/DIAG INJ SC/IM Reviewed 08/30/2013 12:00 AM Decadron, Per 1 Mg [facility]# [address]-47 Reviewed 08/30/2013 12:00 AM Depo-Medrol, Per 80 Mg [facility]#4738-0319-31 Reviewed 11/17/2013 12:00 AM THER/PROPH/DIAG INJ SC/IM Reviewed 11/17/2013 12:00 AM Decadron, Per 1 Mg [facility]# [address]-97 Reviewed 11/17/2013 12:00 AM Depo-Medrol 40mg Reviewed 01/06/2014 12:00 AM THER/PROPH/DIAG INJ SC/IM Reviewed 01/06/2014 12:00 AM Decadron, Per 1 Mg [facility]# [address]-34 Reviewed 01/06/2014 12:00 AM Rocephin 1 gram [facility]#8146-5758-37 Reviewed 01/10/2014 12:00 AM OFFICE/OUTPATIENT VISIT EST [...] Decadron, Per 1 Mg [facility]# [address]-57 Reviewed 10/12/2014 12:00 AM Depo-Medrol 40mg Reviewed [...] CVX Influenza 03/02/2013 sanofi pasteur PMC FLUZONE [id number] Intramuscular Left Deltoid 03/02/2013 12/17/2012 141 X 02/28/2014 Merck & Co., Inc. MSD PNEUMOVAX 23 [id number] Intramuscular Left Deltoid 02/28/2014 02/27/2009 33 Influenza 03/23/2015 sanofi pasteur PMC Fluzone Quadrivalent [id number] Intramuscular Right Deltoid 03/23/2015 12/29/2014 140 Influenza 03/04/2016 sanofi pasteur PMC Fluzone Quadrivalent UI 684 AE Intramuscular Left Deltoid 03/04/2016 12/29/2014 141 Tdap 02/20/2017 [place] SKB BOOSTRIX [id number] Intramuscular Right Arm 02/20/2017 07/18/2014 115 Influenza 02/20/2017 sanofi pasteur PMC Fluzone Quadrivalent [id number] Intramuscular Left Arm 02/20/2017 12/29/2014 150 History [...] SI joint pain Sep 01 2012 3:06PM prison medication use Sep 01 2012 4:05PM Wrist [...] Insomnia, unspecified type Nov 04 2017 10:31AM Payers Insurance Name Company Name Plan Name Plan Number Policy Number Policy Group Number Start Date [employer] [place] [id number] N/A [employer] [place] [id number] Saturday, 2011 [employer] [place] [id number] N/A [employer] [place] [id number] Thursday, 2013 UMR UMR [id number] N/A [employer] [id number] N/A [employer] [place] [id number] N/A Res Care ResCare [id number] N/A [employer] [employer] [id number] N/A Res Care ResCare [id number] DOI [id number] May [employer] [place] [id number] N/A History of Encounters Visit Date Visit Type Provider 11/04/2017 Office visit Chelsea Rodríguez APRN 10/13/2017 [facility] Asha Church MD 10/13/2017 Office visit Chelsea Rodríguez FRYER LINE HELPER 2017 Office visit Chelsea Rodríguez APRN 05/22/2017 Office visit Chelsea Rodríguez APRN 02/20/2017 Office visit Chelsea Rodríguez APRN 02/10/2017 Office visit Jeremy West DO 01/31/2017 Office visit Dimitri Beebe NP 11/20/2016 Office visit Chelsea Rodríguez FRYER LINE HELPER 08/29/2016 Office visit Chelsea Rodríguez APRN 07/31/2016 Office visit Chelsea Rodríguez FRYER LINE HELPER 06/11/2016 Office visit Chelsea Rodríguez FRYER LINE HELPER 06/05/2016 Office visit Leonardo Cowan FRYER LINE HELPER 05/14/2016 Office visit Chelsea Rodríguez FRYER LINE HELPER 05/05/2016 Office visit Leonardo Cowan FRYER LINE HELPER 04/24/2016 Office visit Chelsea Rodríguez FRYER LINE HELPER 04/07/2016 Office visit Chelsea Rodríguez FRYER LINE HELPER 03/04/2016 Office visit Chelsea Rodríguez FRYER LINE HELPER 01/14/2016 Office visit Chelsea Rodríguez FRYER LINE HELPER 01/09/2016 Office visit Leonardo Cowan FRYER LINE HELPER 01/04/2016 Office visit Leonardo Cowan FRYER LINE HELPER 11/27/2015 Office visit Chelsea Rodríguez FRYER LINE HELPER 08/23/2015 Office visit Chelsea Rodríguez FRYER LINE HELPER 07/19/2015 Office visit 07/19/2015 Office visit Chelsea Rodríguez FRYER LINE HELPER 06/21/2015 Office visit Chelsea Rodríguez FRYER LINE HELPER 05/03/2015 Nurse visit Adela Cole WASHER MEAT 04/12/2015 Office visit Adela Cole WASHER MEAT 03/23/2015 Office visit Chelsea Rodríguez FRYER LINE HELPER 03/08/2015 Office visit Adela PITTMANP 02/14/2015 Office visit Leonardo Pazran FRYER LINE HELPER 02/08/2015 Office visit Adela PITTMANP 02/07/2015 Office visit Leonardo Cowan FRYER LINE HELPER 01/11/2015 Office visit Adela PITTMANP 12/28/2014 Office visit Chelsea Rodríguez FRYER LINE HELPER 12/14/2014 Nurse visit Adela PORTER 11/23/2014 Nurse visit Adela PITTMANP 10/26/2014 Office visit Adela PITTMANP 10/12/2014 Office visit 10/12/2014 Office visit Chelsea Rodríguez FRYER LINE HELPER 10/05/2014 Nurse visit Adela PITTMANP 09/07/2014 Office visit Adela PITTMANP 08/17/2014 Office visit 08/17/2014 Office visit 08/17/2014 Office visit Chelsea Rodríguez FRYER LINE HELPER 08/14/2014 Office visit Adela PITTMANP 07/27/2014 Office visit Adela PITTMANP 2014 Office visit Adela PITTMANP 2014 Office visit Mica Lr FRYER LINE HELPER 06/28/2014 Nurse visit Adela PITTMANP 05/31/2014 Office visit Adela PITTMANP 05/03/2014 Voided Adela PITTMANP 04/26/2014 Office visit Mica Lr FRYER LINE HELPER 04/05/2014 Office visit Adela Cole WASHER MEAT 03/10/2014 Office visit Adela Cole WASHER MEAT 02/28/2014 Office visit Mica Lr FRYER LINE HELPER 02/24/2014 Office visit Adela JohnsonMarcus Douglas WASHER MEAT 02/06/2014 Office visit Adela JohnsonMarcus Douglas WASHER MEAT 01/10/2014 Nurse visit Suzan Liang MD 01/06/2014 Office visit Mica Lr FRYER LINE HELPER 12/15/2013 Office visit Adela Cole WASHER MEAT 11/17/2013 Office visit Chelsea Marcos FRYER LINE HELPER 11/17/2013 Office visit Adela JohnsonMarcus Douglas WASHER MEAT 10/20/2013 Office visit Adela Cole WASHER MEAT 09/22/2013 Office visit Adela Cole WASHER MEAT 08/30/2013 Office visit Chelsea Marcos FRYER LINE HELPER 08/26/2013 Office visit Beti Reyna FRYER LINE HELPER 07/29/2013 Office visit Adela Cole WASHER MEAT 07/06/2013 [facility] Elmira Campbell MD 07/01/2013 Office visit Adela Cole WASHER MEAT 06/06/2013 Office visit Adela Cole WASHER MEAT 05/31/2013 Office visit Chelsea Rodríguez FRYER LINE HELPER 05/11/2013 Office visit Adela Cole WASHER MEAT 03/22/2013 Office visit Adela Cole WASHER MEAT 03/10/2013 Office visit Adela Cole WASHER MEAT 03/04/2013 Office visit Adela PITTMANP 03/02/2013 Office visit Odette Elam MD 02/22/2013 Office visit Adela PITTMANP 01/28/2013 Office visit Chelsea Rodríguez FRYER LINE HELPER 01/25/2013 Office visit Adela PITTMANP 12/27/2012 Office visit Adela PITTMANP 12/07/2012 [facility] Pablo Croft MD 11/24/2012 Office visit Pablo Croft MD 11/02/2012 Office visit Kylah Wright FRYER LINE HELPER 11/02/2012 Office visit Mica Lr FRYER LINE HELPER 10/05/2012 [facility] Pablo Croft MD 09/30/2012 Office visit Kylah Wright FRYER LINE HELPER 09/01/2012 Office visit Kylah Wright FRYER LINE HELPER 07/21/2012 Office visit Odette Elam MD [...]
--- OUTSIDE RECORDS SUMMARY | 2018-02-14 13:19 | XMS REPORT ---
Author Author Odette Elam [facility] Address [address] [place], [place] [id number] Care Team Providers Care Janitor Helper Name Role Phone Odette Elam PCP Unavailable Allergies and Adverse Reactions Name Reaction Notes Keflex Plan of Treatment Not available. Medications Active Name Start Date Estimated Completion Date SIG Comments gabapentin oral capsule 300 mg 2014 11/14/2014 take 1 capsule by oral route 3 times a day for 30 days meloxicam oral tablet 15 mg 2014 11/14/2014 take 1 tablet (15 mg) by oral route once daily for 30 days Wellbutrin oral tablet 100 mg 08/17/2014 take 1 tablet (100 mg) by oral route 2 times per day Sudafed 12 Hour oral tablet extended release 120 mg 08/17/2014 take 1 tablet (120 mg) by oral route every 12 hours Cymbalta oral capsule,delayed release(DR/EC) 60 mg 08/17/2014 take 1 capsule (60 mg) by oral route once daily Chantix Continuing Month Donn oral tablet 1 mg 09/04/2014 11/27/2014 take 1 tablet (1 mg) with a glass of water by oral route 2 times per day after meals for 12 weeks Nucynta ER oral tablet extended release 12 hr 100 mg 09/07/2014 10/07/2014 take 1 tablet (100 mg) by oral route every 12 hours for 30 days [place] oral tablet 10-325 mg 10/05/2014 11/04/2014 take [...] 2 times per day for 10 days alprazolam oral tablet 0.5 mg 08/28/2014 09/27/2014 take 1 tablet by oral route every 6 hours for 30 days Chantix Starting Month Box oral tablets,dose pack 0.5 mg (11)- 1 mg (42) 201410/04/2014 take as directed for 30 days Discontinued Name Start Date [...] (15 mg) by oral route once daily Medrol (Donn) oral tablets,dose pack 4 mg [...] HC BMI BSA BMI Percentile O2 Sat(%) 10/05/2014 3:05:00 PM 142 mmHg 78 mmHg [...] 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 MSD Pneumovax 23 [id number] Intramuscular Left Deltoid 02/28/2014 02/27/2009 33 History [...] SI joint pain Sep 01 2012 3:06PM [facility] medication use Sep 01 2012 4:05PM Wrist [...] 3 2013 3:35PM Anxiety Disorder Sep 6 2012 8:51AM [...] Chronic pain syndrome Oct 05 2014 3:12PM Payers Insurance Name Company Name Plan Name Plan Number Policy Number Policy Group Number Start Date [employer] [place] [id number] N/A [employer] [place] [id number] Thursday, 2013 [employer] [place] [id number] Saturday, 2011 History of Encounters Visit Date Visit Type Provider 10/05/2014 Nurse visit Adela PORTER 09/07/2014 Office [...] Liang MD 01/06/2014 Office visit Mica Lr APRN 12/15/2013 Office visit Adela Manjit Douglas SHIPYARD PAINTING SUPERVISOR 11/17/2013 Office visit Adela M. Douglas SHIPYARD PAINTING SUPERVISOR 11/17/2013 Office visit Chelsea Rodríguez SHUTTLE TRUCK DRIVER 10/20/2013 Office visit Adela JohnsonMarcus Douglas SHIPYARD PAINTING SUPERVISOR 09/22/2013 Office visit Adela Manjit Douglas SHIPYARD PAINTING SUPERVISOR 08/30/2013 Office visit Chelsea Rodríguez SHUTTLE TRUCK DRIVER 08/26/2013 Office visit Beti Reyna SHUTTLE TRUCK DRIVER 07/29/2013 Office visit Adela Cole SHIPYARD PAINTING SUPERVISOR 07/06/2013 [facility] Elmira Campbell MD 07/01/2013 Office visit Adela AlexMarcus Cole SHIPYARD PAINTING SUPERVISOR 06/06/2013 Office visit Adela M. Douglas SHIPYARD PAINTING SUPERVISOR 05/31/2013 Office visit Chelsea Rodríguez SHUTTLE TRUCK DRIVER 05/11/2013 Office visit Adela AlexMarcus Cole SHIPYARD PAINTING SUPERVISOR 03/22/2013 Office visit Adela Cole SHIPYARD PAINTING SUPERVISOR 03/10/2013 Office visit Adela Cole SHIPYARD PAINTING SUPERVISOR 03/04/2013 Office visit Adela Cole SHIPYARD PAINTING SUPERVISOR 03/02/2013 Office visit Odette Elam MD 02/22/2013 Office visit Adela Cole SHIPYARD PAINTING SUPERVISOR 01/28/2013 Office visit Chelsea Rodríguez SHUTTLE TRUCK DRIVER 01/25/2013 Office visit Adela Cole SHIPYARD PAINTING SUPERVISOR 12/27/2012 Office visit Adela Cole SHIPYARD PAINTING SUPERVISOR 12/07/2012 [facility] Pablo Croft MD 11/24/2012 Office visit Pablo Croft MD 11/02/2012 Office visit Mica Lr SHUTTLE TRUCK DRIVER 11/02/2012 Office visit Kylah Wright SHUTTLE TRUCK DRIVER 10/05/2012 [facility] Pablo Croft MD 09/30/2012 Office visit Kylah Wright SHUTTLE TRUCK DRIVER 09/01/2012 Office visit Kylah Wright SHUTTLE TRUCK DRIVER 07/21/2012 Office visit Odette Elam MD 06/16/2012 Office visit Pablo Croft MD 05/11/2012 [facility] Pablo Croft MD 04/28/2012 Office visit Pablo Croft MD 04/20/2012 Office visit Odette Elam MD 03/29/2012 Office visit Pablo Croft MD 03/16/2012 [facility] Pablo Croft MD 03/09/2012 [facility] Pablo Croft MD 02/24/2012 [facility] Pablo Croft MD 02/11/2012 Office visit Pablo Croft MD 01/28/2012 Office visit Pablo Croft MD 01/19/2012 Office visit Odette Elam MD 12/03/2011 Office visit Reji Bowens MD 11/12/2011 Office visit Alison Antoine APRN 10/28/2011 Procedures Reji Bowens MD 10/07/2011 Office visit Odette Elam MD 09/04/2011 Surgery Reji Bowens MD 08/15/2011 Surgery Reji Bowens MD 07/22/2011 [facility] Reji Bowens MD 07/22/2011 [facility] Naveen Aguilar MD 07/14/2011 Surgery Reji Bowens MD 06/26/2011 Office visit Odette Elam MD 06/24/2011 Office visit Reji Bowens MD 12/04/2010 [facility] Asha Church MD
--- OUTSIDE RECORDS SUMMARY | 2018-02-14 13:27 | XMS REPORT ---
Author Author Jeremy West Organization [facility] Address [address] [place], [place] [id number] Care Team Providers Care Back Roller Name Role Phone Jeremy West PCP Chelsea [...] then Take 1 tab x 2 days. [place] 10-325 mg oral tablet 05/03/2015 06/02/2015 take [...] 11/27/2015 12:00 AM Decadron, Per 1 Mg [facility]# [id number] Reviewed 11/27/2015 12:00 AM Depo-Medrol 40mg Reviewed [...] Reviewed 04/24/2016 12:00 AM Toradol 60 Mg [facility]#0351-0373-08 Reviewed 06/11/2016 12:00 AM Consult/Referral Reviewed 06/11/2016 2:41 PM URINALYSIS AUTO W/O SCOPE Reviewed 06/11/2016 12:00 AM URINE CULTURE/COLONY COUNT Reviewed 06/13/2016 12:00 AM Splint, prefabricated, wrist or ankle Reviewed 07/31/2016 12:00 AM LIPID PANEL Reviewed 07/31/2016 12:00 AM MAMMOGRAPHY SCREENING, DIGITAL Reviewed 10/29/2011 12:00 AM CYSTOMETROGRAM W/RECYCLING OR RUBBISH COLLECTOR&UP Reviewed 10/29/2011 12:00 AM ELECTRO-UROFLOWMETRY FIRST Reviewed 10/29/2011 12:00 AM INTRAABDOMINAL PRESSURE TEST Reviewed 11/12/2011 12:00 AM X-RAY URETHRA/BLADDER Reviewed 11/12/2011 12:00 AM X-RAY EXAM SI JOINTS 3/> VWS Reviewed 01/28/2012 12:00 AM MRI LUMBAR SPINE W/O DYE Reviewed 04/20/2012 12:00 AM THER/PROPH/DIAG INJ SC/IM Reviewed 04/20/2012 12:00 AM Depo-Medrol, Per 120 Mg ND#4103-1496-01 Reviewed 07/21/2012 12:00 AM THER/PROPH/DIAG INJ SC/IM Reviewed 07/21/2012 12:00 AM Depo-Medrol, Per 120 Mg [facility]#5087-9148-14 Reviewed 09/01/2012 12:00 AM Drug Screen (Non-Medicare) Reviewed 09/01/2012 12:00 AM DRAIN/INJ JOINT/BURSA W/O US Reviewed 09/01/2012 12:00 AM Kenalog, Per 10 Mg [facility]#1399-8178-25 Reviewed 11/02/2012 12:00 AM Norflex, Up to 60 Mg [facility]#95122-969-09 Reviewed 11/02/2012 12:00 AM INJ TRIGGER POINT 1/2 MUSCL Reviewed 11/02/2012 12:00 AM Bupivicaine, 30 ml [facility]#5727-5969-25 Reviewed 11/02/2012 12:00 AM THER/PROPH/DIAG INJ SC/IM Reviewed 11/02/2012 12:00 AM Norflex, Up to 60 Mg [facility]#98023-622-24 Reviewed 12/27/2012 12:00 AM COMPLETE CBC W/AUTO DIFF WBC Reviewed 12/27/2012 12:00 AM COMPREHEN METABOLIC PANEL Reviewed 12/27/2012 12:00 AM ASSAY THYROID STIM HORMONE Reviewed 12/27/2012 12:00 AM VITAMIN B-12 Reviewed 12/27/2012 12:00 AM ASSAY OF FERRITIN Reviewed 12/27/2012 12:00 AM ANTINUCLEAR ANTIBODIES Reviewed 12/27/2012 12:00 AM DNA ANTIBODY CHITINA Reviewed 12/27/2012 12:00 AM NUCLEAR ANTIGEN ANTIBODY [...] 12:00 AM Decadron, Per 1 Mg ND# [address]-10 Reviewed 05/31/2013 12:00 AM Depo-Medrol, Per 80 Mg ND#0089-8035-74 Reviewed 05/31/2013 12:00 AM THER/PROPH/DIAG INJ SC/IM Reviewed 06/06/2013 12:00 AM MUSCLE TEST 2 LIMBS Reviewed 06/06/2013 12:00 AM Nerve conduction studies with F-wave Reviewed 08/26/2013 12:00 AM MAMMOGRAM SCREENING Reviewed 08/26/2013 12:00 AM MAMMOGRAM SCREENING Reviewed 08/30/2013 12:00 AM THER/PROPH/DIAG INJ SC/IM Reviewed 08/30/2013 12:00 AM Decadron, Per 1 Mg ND# [address]-78 Reviewed 08/30/2013 12:00 AM Depo-Medrol, Per 80 Mg NDC#0257-6727-17 Reviewed 11/17/2013 12:00 AM THER/PROPH/DIAG INJ SC/IM Reviewed 11/17/2013 12:00 AM Decadron, Per 1 Mg NDC# [address]-69 Reviewed 11/17/2013 12:00 AM Depo-Medrol 40mg Reviewed 01/06/2014 12:00 AM THER/PROPH/DIAG INJ SC/IM Reviewed 01/06/2014 12:00 AM Decadron, Per 1 Mg [facility]# [address]-79 Reviewed 01/06/2014 12:00 AM Rocephin 1 gram [facility]#2609-8148-43 Reviewed 01/10/2014 12:00 AM OFFICE/OUTPATIENT VISIT EST [...] 10/12/2014 12:00 AM Decadron, Per 1 Mg [facility]# [address]-61 Reviewed 10/12/2014 12:00 AM Depo-Medrol 40mg Reviewed [...] 4.98 HGB 15.20 g/dLHCT 45.50 %MCV 91.0 [facility] 30.50 pgHC 33.40 g/dLRDW SD 42 RDW [...] CVX Influenza 03/02/2013 sanofi pasteur PMC Fluzone [id number] Intramuscular Left Deltoid 03/02/2013 12/17/2012 141 X 02/28/2014 [employer]ck & Co[employer] 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 Sep 01 2012 4:05PM Wrist [...] Pelvic girdle weakness Feb 10 2017 12:55PM Payers Insurance Name Company Name Plan Name Plan Number Policy Number Policy Group Number Start Date [employer] [place] [id number] N/A [employer] [place] [id number] Saturday, 2011 [employer] [place] [id number] N/A [employer] [place] [id number] Thursday, 2013 UMR UMR [id number] N/A [employer] [id number] N/A [employer] [place] [id number] N/A Res Care [employer] [id number] N/A [employer] [id number] N/A Res [employer] [id number] DOI [id number] May [employer] [place] [id number] N/A History of Encounters Visit Date Visit Type Provider 02/10/2017 Office visit Jeremy West DO 01/31/2017 Office visit Dimitri Beebe NP 11/20/2016 Office visit Chelsea Rodríguez BEARING MACHINE OPERATOR 08/29/2016 Office visit Chelsea Rodríguez BEARING MACHINE OPERATOR 07/31/2016 Office visit Chelsea Rodríguez BEARING MACHINE OPERATOR 06/11/2016 Office visit Chelsea Rodríguez BEARING MACHINE OPERATOR 06/05/2016 Office visit Leonardo Cowan BEARING MACHINE OPERATOR 05/14/2016 Office visit Chelsea Rodríguez BEARING MACHINE OPERATOR 05/05/2016 Office visit Leonardo Cowan BEARING MACHINE OPERATOR 04/24/2016 Office visit Chelsea Rodríguez BEARING MACHINE OPERATOR 04/07/2016 Office visit Chelsea Rodríguez APRN 03/04/2016 Office visit Chelsea Rodríguez APRN 01/14/2016 Office visit Chelsea Rodríguez APRN 01/09/2016 Office visit Leonardo Cowan BEARING MACHINE OPERATOR 01/04/2016 Office visit Leonardo Cowan BEARING MACHINE OPERATOR 11/27/2015 Office visit Chelsea Rodríguez BEARING MACHINE OPERATOR 08/23/2015 Office visit Chelsea Rodríguez BEARING MACHINE OPERATOR 07/19/2015 Office visit 07/19/2015 Office visit Chelsea Rodríguez BEARING MACHINE OPERATOR 06/21/2015 Office visit Chelsea Rodríguez BEARING MACHINE OPERATOR 05/03/2015 Nurse visit Adela Cole AIR CONDITIONER INSTALLER HELPER 04/12/2015 Office visit Adela Cole AIR CONDITIONER INSTALLER HELPER 03/23/2015 Office visit Chelsea Rodríguez BEARING MACHINE OPERATOR 03/08/2015 Office visit Adela Cole AIR CONDITIONER INSTALLER HELPER 02/14/2015 Office visit Leonardo Pazran BEARING MACHINE OPERATOR 02/08/2015 Office visit Adela Cole AIR CONDITIONER INSTALLER HELPER 02/07/2015 Office visit Leonardo Cowan BEARING MACHINE OPERATOR 01/11/2015 Office visit Adela Cole AIR CONDITIONER INSTALLER HELPER 12/28/2014 Office visit Chelsea Rodríguez BEARING MACHINE OPERATOR 12/14/2014 Nurse visit Adela Cole AIR CONDITIONER INSTALLER HELPER 11/23/2014 Nurse visit Adela PITTMANP 10/26/2014 Office visit Adela PITTMANP 10/12/2014 Office visit 10/12/2014 Office visit Chelsea Rodríguez BEARING MACHINE OPERATOR 10/05/2014 Nurse visit Adela PITTMANP 09/07/2014 Office visit Adela PITTMANP 08/17/2014 Office visit 08/17/2014 Office visit 08/17/2014 Office visit Chelsea Rodríguez BEARING MACHINE OPERATOR 08/14/2014 Office visit Adela PITTMANP 07/27/2014 Office visit Adela PITTMANP 2014 Office visit Adela PITTMANP 2014 Office visit Mica Lr BEARING MACHINE OPERATOR 06/28/2014 Nurse visit Adela Cole AIR CONDITIONER INSTALLER HELPER 05/31/2014 Office visit Adela PITTMANP 05/03/2014 Voided Adela PITTMANP 04/26/2014 Office visit Mica Lr BEARING MACHINE OPERATOR 04/05/2014 Office visit Adela PITTMANP 03/10/2014 Office visit Adela PITTMANP 02/28/2014 Office visit Mica Lr BEARING MACHINE OPERATOR 02/24/2014 Office visit Adela PITTMANP 02/06/2014 Office visit Adela PITTMANP 01/10/2014 Nurse visit Suzan Liang MD 01/06/2014 Office visit Mica Lr BEARING MACHINE OPERATOR 12/15/2013 Office visit Adela PITTMANP 11/17/2013 Office visit Chelsea Rodríguez BEARING MACHINE OPERATOR 11/17/2013 Office visit Adela M. Douglas AIR CONDITIONER INSTALLER HELPER 10/20/2013 Office visit Adela M. Douglas AIR CONDITIONER INSTALLER HELPER 09/22/2013 Office visit Adela M. Douglas AIR CONDITIONER INSTALLER HELPER 08/30/2013 Office visit Chelsea Rodríguez BEARING MACHINE OPERATOR 08/26/2013 Office visit Beti MMarcus Reyna BEARING MACHINE OPERATOR 07/29/2013 Office visit Adela M. Douglas AIR CONDITIONER INSTALLER HELPER 07/06/2013 [facility] Elmira Campbell MD 07/01/2013 Office visit Adela Cole AIR CONDITIONER INSTALLER HELPER 06/06/2013 Office visit Adela Cole AIR CONDITIONER INSTALLER HELPER 05/31/2013 Office visit Chelsea Rodríguez BEARING MACHINE OPERATOR 05/11/2013 Office visit Adela M. Douglas AIR CONDITIONER INSTALLER HELPER 03/22/2013 Office visit Adela Saravia Douglas AIR CONDITIONER INSTALLER HELPER 03/10/2013 Office visit Adela Cole AIR CONDITIONER INSTALLER HELPER 03/04/2013 Office visit Adela M. Douglas AIR CONDITIONER INSTALLER HELPER 03/02/2013 Office visit Odette Elam MD 02/22/2013 Office visit Adela Manjit Douglas AIR CONDITIONER INSTALLER HELPER 01/28/2013 Office visit Chelsea Rodríguez BEARING MACHINE OPERATOR 01/25/2013 Office visit Adela M. Douglas AIR CONDITIONER INSTALLER HELPER 12/27/2012 Office visit Adela Cole AIR CONDITIONER INSTALLER HELPER 12/07/2012 [facility] Pablo Croft MD 11/24/2012 Office visit Pablo Croft MD 11/02/2012 Office visit Kylah Wright BEARING MACHINE OPERATOR 11/02/2012 Office visit Mica Lr BEARING MACHINE OPERATOR 10/05/2012 [facility] Pablo Croft MD 09/30/2012 Office visit Kylah Wright BEARING MACHINE OPERATOR 09/01/2012 Office visit Kylah Wright BEARING MACHINE OPERATOR 07/21/2012 Office visit Odette Elam MD 06/16/2012 Office visit Pablo Croft MD 05/11/2012 [facility] Pablo Croft MD 04/28/2012 Office visit Pablo Croft MD 04/20/2012 Office visit Odette Elam MD 03/29/2012 Office visit Pablo Croft MD 03/16/2012 [facility] Pablo Croft MD 03/09/2012 [facility] Pablo Croft MD 02/24/2012 [facility] Pablo Croft MD 02/11/2012 Office visit Pablo Croft MD 01/28/2012 Office visit Pablo Croft MD 01/19/2012 Office visit Odette Elam MD 12/03/2011 Office visit Reji Bowens MD 11/12/2011 Office visit Alison Antoine APRN 10/28/2011 Procedures Reji Bowens MD 10/07/2011 Office visit Odette Elam MD 09/04/2011 Surgery Reji Bwoens MD 08/15/2011 Surgery Reji Bowens MD 07/22/2011 [facility] Naveen Aguilar MD 07/22/2011 [facility] Reji Bowens MD 07/14/2011 Surgery Reji Bowens MD 06/26/2011 Office visit Odette Elam MD 06/24/2011 Office visit Reji Bowens MD 12/04/2010 [facility] Asha Church MD
--- OUTSIDE RECORDS SUMMARY | 2018-02-14 13:33 | XMS REPORT ---
Author Author Chelsea Rodríguez Organization [facility] Address [address] [place], [place] [id number] Care Team Providers Care Action Installer Name Role Phone Chelsea Rodríguez PCP Chelsea [...] then Take 1 tab x 2 days. [place] 10-325 mg oral tablet 05/03/2015 06/02/2015 take [...] 11/27/2015 12:00 AM Decadron, Per 1 Mg [facility]# [address]-97 Reviewed 11/27/2015 12:00 AM Depo-Medrol 40mg Reviewed [...] Reviewed 04/24/2016 12:00 AM Toradol 60 Mg [facility]#2705-9685-64 Reviewed 06/11/2016 12:00 AM Consult/Referral Reviewed 06/11/2016 2:41 PM URINALYSIS AUTO W/O SCOPE Reviewed 06/11/2016 12:00 AM URINE CULTURE/COLONY COUNT Reviewed 06/13/2016 12:00 AM Splint, prefabricated, wrist or ankle Reviewed 07/31/2016 12:00 AM LIPID PANEL Reviewed 07/31/2016 12:00 AM MAMMOGRAPHY SCREENING, DIGITAL Reviewed 10/29/2011 12:00 AM CYSTOMETROGRAM W/INTERNET SYSTEMS ADMINISTRATOR&UP Reviewed 10/29/2011 12:00 AM ELECTRO-UROFLOWMETRY FIRST Reviewed [...] 04/20/2012 12:00 AM Depo-Medrol, Per 120 Mg [facility]#0035-5471-00 Reviewed 07/20/2017 12:00 AM INJECT SPINE LUMBAR/SACRAL Returned 2017 12:00 AM COMPLETE CBC W/AUTO DIFF WBC Returned 2017 12:00 AM COMPREHEN METABOLIC PANEL Returned 2017 12:00 AM LIPID PANEL Returned 2017 12:00 AM ASSAY THYROID STIM HORMONE Returned 2017 12:00 AM MAMMOGRAPHY SCREENING, DIGITAL Returned 07/21/2012 12:00 AM THER/PROPH/DIAG INJ SC/IM Reviewed 07/21/2012 12:00 AM Depo-Medrol, Per 120 Mg [facility]#0515-9778-86 Reviewed 10/14/2017 12:38 PM ASSAY GLUCOSE BLOOD QUANT Reviewed 10/14/2017 12:38 PM GLUCOSE BLOOD TEST Reviewed 09/01/2012 12:00 AM Drug Screen (Non-Medicare) Reviewed 09/01/2012 12:00 AM DRAIN/INJ JOINT/BURSA W/O US Reviewed 09/01/2012 12:00 AM Kenalog, Per 10 Mg [facility]#0699-3614-99 Reviewed 11/02/2012 12:00 AM Norflex, Up to 60 Mg [facility]#70817-257-19 Reviewed 11/02/2012 12:00 AM INJ TRIGGER POINT 1/2 MUSCL Reviewed 11/02/2012 12:00 AM Bupivicaine, 30 ml [facility]#3300-1652-13 Reviewed 11/02/2012 12:00 AM THER/PROPH/DIAG INJ SC/IM Reviewed 11/02/2012 12:00 AM Norflex, Up to 60 Mg [facility]#99710-681-76 Reviewed 12/27/2012 12:00 AM COMPLETE CBC W/AUTO DIFF WBC Reviewed 12/27/2012 12:00 AM COMPREHEN METABOLIC PANEL Reviewed 12/27/2012 12:00 AM ASSAY THYROID STIM HORMONE Reviewed 12/27/2012 12:00 AM VITAMIN B-12 Reviewed 12/27/2012 12:00 AM ASSAY OF FERRITIN Reviewed 12/27/2012 12:00 AM ANTINUCLEAR ANTIBODIES Reviewed 12/27/2012 12:00 AM DNA ANTIBODY [place] Reviewed 12/27/2012 12:00 AM NUCLEAR ANTIGEN ANTIBODY [...] 12:00 AM Decadron, Per 1 Mg ND# [address]-57 Reviewed 05/31/2013 12:00 AM Depo-Medrol, Per 80 Mg ND#2938-8091-26 Reviewed 05/31/2013 12:00 AM THER/PROPH/DIAG INJ SC/IM Reviewed 06/06/2013 12:00 AM MUSCLE TEST 2 LIMBS Reviewed 06/06/2013 12:00 AM Nerve conduction studies with F-wave Reviewed 08/26/2013 12:00 AM MAMMOGRAM SCREENING Reviewed 08/26/2013 12:00 AM MAMMOGRAM SCREENING Reviewed 08/30/2013 12:00 AM THER/PROPH/DIAG INJ SC/IM Reviewed 08/30/2013 12:00 AM Decadron, Per 1 Mg [facility]# [address]-69 Reviewed 08/30/2013 12:00 AM Depo-Medrol, Per 80 Mg [facility]#8116-1295-39 Reviewed 11/17/2013 12:00 AM THER/PROPH/DIAG INJ SC/IM Reviewed 11/17/2013 12:00 AM Decadron, Per 1 Mg [facility]# [address]-04 Reviewed 11/17/2013 12:00 AM Depo-Medrol 40mg Reviewed 01/06/2014 12:00 AM THER/PROPH/DIAG INJ SC/IM Reviewed 01/06/2014 12:00 AM Decadron, Per 1 Mg [facility]# [address]-15 Reviewed 01/06/2014 12:00 AM Rocephin 1 gram [facility]#5884-2286-29 Reviewed 01/10/2014 12:00 AM OFFICE/OUTPATIENT VISIT EST [...] 10/12/2014 12:00 AM Decadron, Per 1 Mg [facility]# [address]-34 Reviewed 10/12/2014 12:00 AM Depo-Medrol 40mg Reviewed [...] CVX Influenza 03/02/2013 sanofi pasteur PMC FLUZONE [id number] Intramuscular Left Deltoid 03/02/2013 12/17/2012 141 X 02/28/2014 Merck & Co., Inc. MSD PNEUMOVAX 23 [id number] Intramuscular Left Deltoid 02/28/2014 02/27/2009 33 Influenza 03/23/2015 sanofi pasteur PMC Fluzone Quadrivalent [id number] Intramuscular Right Deltoid 03/23/2015 12/29/2014 140 Influenza 03/04/2016 Sandman D&Rofi pasteur PMC Fluzone Quadrivalent UI 684 [id number] Intramuscular Left Deltoid 03/04/2016 12/29/2014 141 Tdap 02/20/2017 GlaxoSmithKline SKB BOOSTRIX [id number] Intramuscular Right Arm 02/20/2017 07/18/2014 115 Influenza 02/20/2017 sanofi [email or web address] PMC Fluzone Quadrivalent [id number] Intramuscular Left Arm 02/20/2017 12/29/2014 150 History [...] Number Start Date [employer] [place] [id number] N/A [employer] [place] [id number] Saturday, 2011 [employer] [place] [id number] N/A [employer] [place] [id number] Thursday, 2013 UMR UMR [id number] N/A [employer]ums [id number] N/A [employer] [place] [id number] N/A Res Care ResCare [id number] N/A [employer] [id number] N/A [employer] [facility] [employer] [id number] DOI [id number] May [employer] [place] [id number] N/A History of Encounters Visit Date Visit Type Provider 10/13/2017 Office visit Chelsea Rodríguez SOFTWARE DEVELOPMENT MANAGER 2017 Office visit Chelsea Rodríguez SOFTWARE DEVELOPMENT MANAGER 05/22/2017 Office visit Chelsea Rodríguez SOFTWARE DEVELOPMENT MANAGER 02/20/2017 Office visit Chelsea Rodríguez SOFTWARE DEVELOPMENT MANAGER 02/10/2017 Office visit Jeremy West DO 01/31/2017 Office visit Dimitri Beebe NP 11/20/2016 Office visit Chelsea Rodríguez SOFTWARE DEVELOPMENT MANAGER 08/29/2016 Office visit Chelsea Rodríguez SOFTWARE DEVELOPMENT MANAGER 07/31/2016 Office visit Chelsea Rodríguez SOFTWARE DEVELOPMENT MANAGER 06/11/2016 Office visit Chelsea Rodríguez SOFTWARE DEVELOPMENT MANAGER 06/05/2016 Office visit Leonardo Cowan SOFTWARE DEVELOPMENT MANAGER 05/14/2016 Office visit Chelsea Rodríguez SOFTWARE DEVELOPMENT MANAGER 05/05/2016 Office visit Leonardo Cowan SOFTWARE DEVELOPMENT MANAGER 04/24/2016 Office visit Chelsea Rodríguez SOFTWARE DEVELOPMENT MANAGER 04/07/2016 Office visit Chelsea Rodríguez SOFTWARE DEVELOPMENT MANAGER 03/04/2016 Office visit Chelsea Rodríguez SOFTWARE DEVELOPMENT MANAGER 01/14/2016 Office visit Chelsea Rodríguez SOFTWARE DEVELOPMENT MANAGER 01/09/2016 Office visit Leonardo Cowan SOFTWARE DEVELOPMENT MANAGER 01/04/2016 Office visit Leonardo Cowan SOFTWARE DEVELOPMENT MANAGER 11/27/2015 Office visit Chelsea Rodríguez SOFTWARE DEVELOPMENT MANAGER 08/23/2015 Office visit Chelsea Rodríguez SOFTWARE DEVELOPMENT MANAGER 07/19/2015 Office visit 07/19/2015 Office visit Chelsea Rodríguez SOFTWARE DEVELOPMENT MANAGER 06/21/2015 Office visit Chelsea Rodríguez SOFTWARE DEVELOPMENT MANAGER 05/03/2015 Nurse visit Adela Cole PAROLE OFFICER 04/12/2015 Office visit Adela Cole PAROLE OFFICER 03/23/2015 Office visit Chelsea Rodríguez SOFTWARE DEVELOPMENT MANAGER 03/08/2015 Office visit Adela JohnsonMarcus Douglas PAROLE OFFICER 02/14/2015 Office visit Leonardo Cowan SOFTWARE DEVELOPMENT MANAGER 02/08/2015 Office visit Adela Cole PAROLE OFFICER 02/07/2015 Office visit Leonardo Cowan SOFTWARE DEVELOPMENT MANAGER 01/11/2015 Office visit Adela Cole PAROLE OFFICER 12/28/2014 Office visit Chelsea Rodríguez SOFTWARE DEVELOPMENT MANAGER 12/14/2014 Nurse visit Adela Cole PAROLE OFFICER 11/23/2014 Nurse visit Adela Cole PAROLE OFFICER 10/26/2014 Office visit Adela PITTMANP 10/12/2014 Office visit 10/12/2014 Office visit Chelsea Rodríguez SOFTWARE DEVELOPMENT MANAGER 10/05/2014 Nurse visit Adela PITTMANP 09/07/2014 Office visit Adlea PITTMANP 08/17/2014 Office visit 08/17/2014 Office visit 08/17/2014 Office visit Chelsea Rodríguez SOFTWARE DEVELOPMENT MANAGER 08/14/2014 Office visit Adela PITTMANP 07/27/2014 Office visit Adela PITTMANP 2014 Office visit Adela PITTMANP 2014 Office visit Mica Lr SOFTWARE DEVELOPMENT MANAGER 06/28/2014 Nurse visit Adela PITTMANP 05/31/2014 Office visit Adela PITTMANP 05/03/2014 Voided Adela PITTMANP 04/26/2014 Office visit Mica Lr SOFTWARE DEVELOPMENT MANAGER 04/05/2014 Office visit Adela PITTMANP 03/10/2014 Office visit Adela PITTMANP 02/28/2014 Office visit Mica Lr SOFTWARE DEVELOPMENT MANAGER 02/24/2014 Office visit Adela PITTMANP 02/06/2014 Office visit Adela PITTMANP 01/10/2014 Nurse visit Suzan Liang MD 01/06/2014 Office visit Mica Lr SOFTWARE DEVELOPMENT MANAGER 12/15/2013 Office visit Adela PITTMANP 11/17/2013 Office visit Chelsea Rodríguez SOFTWARE DEVELOPMENT MANAGER 11/17/2013 Office visit Adela PITTMANP 10/20/2013 Office visit Adela JohnsonMarcus Cole PAROLE OFFICER 09/22/2013 Office visit Adela AlexMarcus Cole PAROLE OFFICER 08/30/2013 Office visit Chelsea Rodríguez SOFTWARE DEVELOPMENT MANAGER 08/26/2013 Office visit Beti Reyna SOFTWARE DEVELOPMENT MANAGER 07/29/2013 Office visit Adela AlexMarcus Cole PAROLE OFFICER 07/06/2013 [facility] Elmira Campbell MD 07/01/2013 Office visit Adela M. Douglas PAROLE OFFICER 06/06/2013 Office visit Adela M. Douglas PAROLE OFFICER 05/31/2013 Office visit Chelsea Rodríguez SOFTWARE DEVELOPMENT MANAGER 05/11/2013 Office visit Adela M. Douglas PAROLE OFFICER 03/22/2013 Office visit Adela M. Douglas PAROLE OFFICER 03/10/2013 Office visit Adela M. Douglas PAROLE OFFICER 03/04/2013 Office visit Adela Manjit Douglas PAROLE OFFICER 03/02/2013 Office visit Odette Elam MD 02/22/2013 Office visit Adela Cole PAROLE OFFICER 01/28/2013 Office visit Chelsea Rodríguez SOFTWARE DEVELOPMENT MANAGER 01/25/2013 Office visit Adela Cole PAROLE OFFICER 12/27/2012 Office visit Adela Cole PAROLE OFFICER 12/07/2012 [facility] Pablo Croft MD 11/24/2012 Office visit Pablo Croft MD 11/02/2012 Office visit Kylah Wright SOFTWARE DEVELOPMENT MANAGER 11/02/2012 Office visit Mica Lr SOFTWARE DEVELOPMENT MANAGER 10/05/2012 [facility] Pablo Croft MD 09/30/2012 Office visit Kylah Wright SOFTWARE DEVELOPMENT MANAGER 09/01/2012 Office visit Kylah Wright SOFTWARE DEVELOPMENT MANAGER 07/21/2012 Office visit Odette Elam MD [...]
--- OUTSIDE RECORDS SUMMARY | 2018-02-14 13:36 | XMS REPORT ---
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 [place] 10-325 mg oral tablet 05/03/2015 06/02/2015 take [...] Mg [facility]# [address]-99 Reviewed 11/27/2015 12:00 AM Depo-Medrol 40mg Reviewed [...] Returned 04/24/2016 12:00 AM Toradol [address] [facility]#5693-0546-14 Reviewed 06/11/2016 12:00 AM Consult/Referral Reviewed 06/11/2016 2:41 PM URINALYSIS AUTO W/O SCOPE Reviewed 06/11/2016 12:00 AM URINE CULTURE/COLONY COUNT Returned 10/29/2011 12:00 AM CYSTOMETROGRAM W/SMALL ARMS ARTILLERY REPAIRER&UP Reviewed 10/29/2011 12:00 AM ELECTRO-UROFLOWMETRY FIRST Reviewed 10/29/2011 12:00 AM INTRAABDOMINAL PRESSURE TEST Reviewed 11/12/2011 12:00 AM X-RAY URETHRA/BLADDER Reviewed 11/12/2011 12:00 AM X-RAY EXAM SI JOINTS 3/> VWS Reviewed 01/28/2012 12:00 AM MRI LUMBAR SPINE W/O DYE Reviewed 04/20/2012 12:00 AM THER/PROPH/DIAG INJ SC/IM Reviewed 04/20/2012 12:00 AM Depo-Medrol, Per [address] [facility]#1507-6072-73 Reviewed 07/21/2012 12:00 AM THER/PROPH/DIAG INJ SC/IM Reviewed 07/21/2012 12:00 AM Depo-Medrol, Per [address] [facility]#6996-3734-53 Reviewed 09/01/2012 12:00 AM Drug Screen (Non-Medicare) Reviewed 09/01/2012 12:00 AM DRAIN/INJ JOINT/BURSA W/O US Reviewed 09/01/2012 12:00 AM Kenalog, Per [address] [facility]#6006-1168-85 Reviewed 11/02/2012 12:00 AM Norflex, Up to [address] [facility]#43137-460-37 Reviewed 11/02/2012 12:00 AM INJ TRIGGER POINT 1/2 MUSCL Reviewed 11/02/2012 12:00 AM Bupivicaine, [address] [facility]#9112-3507-14 Reviewed 11/02/2012 12:00 AM THER/PROPH/DIAG INJ SC/IM Reviewed 11/02/2012 12:00 AM Norflex, Up to [address] [facility]#59376-270-21 Reviewed 12/27/2012 12:00 AM COMPLETE CBC W/AUTO DIFF WBC Reviewed 12/27/2012 12:00 AM COMPREHEN METABOLIC PANEL Reviewed 12/27/2012 12:00 AM ASSAY THYROID STIM HORMONE Reviewed 12/27/2012 12:00 AM VITAMIN B-12 Reviewed 12/27/2012 12:00 AM ASSAY OF FERRITIN Reviewed 12/27/2012 12:00 AM ANTINUCLEAR ANTIBODIES Reviewed 12/27/2012 12:00 AM DNA ANTIBODY LY[place]ON Reviewed 12/27/2012 12:00 AM NUCLEAR ANTIGEN ANTIBODY [...] Mg [facility]# [address]-87 Reviewed 05/31/2013 12:00 AM Depo-Medrol, Per [address] [facility]#5800-2335-71 Reviewed 05/31/2013 12:00 AM THER/PROPH/DIAG INJ SC/IM Reviewed 06/06/2013 12:00 AM MUSCLE TEST 2 LIMBS Reviewed 06/06/2013 12:00 AM Nerve conduction studies with F-wave Reviewed 08/26/2013 12:00 AM MAMMOGRAM SCREENING Reviewed 08/26/2013 12:00 AM MAMMOGRAM SCREENING Reviewed 08/30/2013 12:00 AM THER/PROPH/DIAG INJ SC/IM Reviewed 08/30/2013 12:00 AM Decadron, Per [address] [facility]# [address]-89 Reviewed 08/30/2013 12:00 AM Depo-Medrol, Per 80 Mg [place]#9855-2235-67 Reviewed 11/17/2013 12:00 AM THER/PROPH/DIAG INJ SC/IM Reviewed 11/17/2013 12:00 AM Decadron, Per [address] [facility]# [address]-20 Reviewed 11/17/2013 12:00 AM Depo-Medrol 40mg Reviewed 01/06/2014 12:00 AM THER/PROPH/DIAG INJ SC/IM Reviewed 01/06/2014 12:00 AM Decadron, Per [address] [facility]# [address]-55 Reviewed 01/06/2014 12:00 AM Rocephin [address] [facility]#0470-5292-58 Reviewed 01/10/2014 12:00 AM OFFICE/OUTPATIENT VISIT EST [...] Mg [facility]# [address]-63 Reviewed 10/12/2014 12:00 AM Depo-Medrol 40mg Reviewed [...] Immunizations Name Date Admin [facility] Name Mf Code Trade Name Lot# Route Inj Vis Given Vis Pub CVX Influenza 03/02/2013 sanofi pasteur PMC Fluzone [id number] Intramuscular Left Deltoid 03/02/2013 12/17/2012 141 X 02/28/2014 Merck & Co., Inc. MSD Pneumovax 23 [id number] Intramuscular Left Deltoid 02/28/2014 02/27/2009 33 Influenza 03/23/2015 sanofi pasteur PMC Fluzone Quadrivalent [id number] Intramuscular Right Deltoid 03/23/2015 12/29/2014 140 Influenza [...] SI joint pain Sep 01 2012 3:06PM alf medication use Sep 01 2012 4:05PM Wrist [...] Group Number Start Date [employer] [place] [id number] N/A [employer] [place] [id number] Saturday, 2011 [employer] [place] [id number] N/A [employer] [place] [id number] Thursday, 2013 [facility] UMR [id number] N/A [facility] [employer] [facility] [id number] N/A [employer] [place] [id number] N/A Res Care ResCare [id number] N/A [employer] [id number] N/A Res Care ResCare [id number] DOI [id number] May History of Encounters Visit Date Visit Type Provider 06/11/2016 Office visit Chelsea Rodríguez APRN 06/05/2016 Office visit Leonardo Cowan APRN 05/14/2016 Office visit Chelsea Rodríguez APRN 05/05/2016 Office visit Leonardo Cowan APRN 04/24/2016 Office visit Chelsea Rodríguez LINUX DEVELOPER 04/07/2016 Office visit Chelsea Rodríguez LINUX DEVELOPER 03/04/2016 Office visit Chelsea Rodríguez LINUX DEVELOPER 01/14/2016 Office visit Chelsea Rodríguez LINUX DEVELOPER 01/09/2016 Office visit Leonardo Cowan LINUX DEVELOPER 01/04/2016 Office visit Leonardo Cowan LINUX DEVELOPER 11/27/2015 Office visit Chelsea Rodríguez LINUX DEVELOPER 08/23/2015 Office visit Chelsea Rodríguez LINUX DEVELOPER 07/19/2015 Office visit 07/19/2015 Office visit Chelsea Rodríguez LINUX DEVELOPER 06/21/2015 Office visit Chelsea Rodríguez LINUX DEVELOPER 05/03/2015 Nurse visit Adela Cole CONTINUOUS PICKLING LINE PICKLER HELPER 04/12/2015 Office visit Adela Cole CONTINUOUS PICKLING LINE PICKLER HELPER 03/23/2015 Office visit Chelsea Rodríguez LINUX DEVELOPER 03/08/2015 Office visit Adela Cole CONTINUOUS PICKLING LINE PICKLER HELPER 02/14/2015 Office visit Leonardo Pazran LINUX DEVELOPER 02/08/2015 Office visit Adela PITTMANP 02/07/2015 Office visit Leonardo Cowan LINUX DEVELOPER 01/11/2015 Office visit Adela PITTMANP 12/28/2014 Office visit Chelsea Rodríguez LINUX DEVELOPER 12/14/2014 Nurse visit Adela PITTMANP 11/23/2014 Nurse visit Adela PITTMANP 10/26/2014 Office visit Adela PITTMANP 10/12/2014 Office visit 10/12/2014 Office visit Chelsea Rodríguez LINUX DEVELOPER 10/05/2014 Nurse visit Adela PITTMANP 09/07/2014 Office visit Adela PITTMANP 08/17/2014 Office visit 08/17/2014 Office visit 08/17/2014 Office visit Chelsea Rodríguez LINUX DEVELOPER 08/14/2014 Office visit Adela PITTMANP 07/27/2014 Office visit Adela PITTMANP 2014 Office visit Adela PITTMANP 2014 Office visit Mica Lr LINUX DEVELOPER 06/28/2014 Nurse visit Adela PITTMANP 05/31/2014 Office visit Adela PITTMANP 05/03/2014 Voided Adela PITTMANP 04/26/2014 Office visit Mica Lr LINUX DEVELOPER 04/05/2014 Office visit Adela PITTMANP 03/10/2014 Office visit Adela PITTMANP 02/28/2014 Office visit Mica Lr LINUX DEVELOPER 02/24/2014 Office visit Adela Cole CONTINUOUS PICKLING LINE PICKLER HELPER 02/06/2014 Office visit Adela Cole CONTINUOUS PICKLING LINE PICKLER HELPER 01/10/2014 Nurse visit Suzan Liang MD 01/06/2014 Office visit Mica Lr LINUX DEVELOPER 12/15/2013 Office visit Adela AlexMarcus Cole CONTINUOUS PICKLING LINE PICKLER HELPER 11/17/2013 Office visit Chelsea Rodríguez LINUX DEVELOPER 11/17/2013 Office visit Adela JohnsonMarcus Douglas CONTINUOUS PICKLING LINE PICKLER HELPER 10/20/2013 Office visit Adela Cole CONTINUOUS PICKLING LINE PICKLER HELPER 09/22/2013 Office visit Adela Cole CONTINUOUS PICKLING LINE PICKLER HELPER 08/30/2013 Office visit Chelsea Rodríguez LINUX DEVELOPER 08/26/2013 Office visit Beti Reyna LINUX DEVELOPER 07/29/2013 Office visit Adela Cole CONTINUOUS PICKLING LINE PICKLER HELPER 07/06/2013 [facility] Elmira Campbell MD 07/01/2013 Office visit Adela AlexMarcus Cole CONTINUOUS PICKLING LINE PICKLER HELPER 06/06/2013 Office visit Adela AlexMarcus Cole CONTINUOUS PICKLING LINE PICKLER HELPER 05/31/2013 Office visit Chelsea Marcos LINUX DEVELOPER 05/11/2013 Office visit Adela Cole CONTINUOUS PICKLING LINE PICKLER HELPER 03/22/2013 Office visit Adela Cole CONTINUOUS PICKLING LINE PICKLER HELPER 03/10/2013 Office visit Adela Cole CONTINUOUS PICKLING LINE PICKLER HELPER 03/04/2013 Office visit Adela Cole CONTINUOUS PICKLING LINE PICKLER HELPER 03/02/2013 Office visit Odette Elam MD 02/22/2013 Office visit Adela PITTMANP 01/28/2013 Office visit Chelsea Rodríguez LINUX DEVELOPER 01/25/2013 Office visit Adela PITTMANP 12/27/2012 Office visit Adela Cole CONTINUOUS PICKLING LINE PICKLER HELPER 12/07/2012 [facility] Pablo Croft MD 11/24/2012 Office visit Pablo Croft MD 11/02/2012 Office visit Kylah Wright LINUX DEVELOPER 11/02/2012 Office visit Mica Lr LINUX DEVELOPER 10/05/2012 [facility] Pablo Croft MD 09/30/2012 Office visit Kylah Wright LINUX DEVELOPER 09/01/2012 Office visit Kylah Wright LINUX DEVELOPER 07/21/2012 Office visit Odette Elam MD 06/16/2012 Office visit Pablo Croft MD 05/11/2012 [facility] Pablo Croft MD 04/28/2012 Office visit Pablo Croft MD 04/20/2012 Office visit Odette Elam MD 03/29/2012 Office visit Pablo Croft MD 03/16/2012 [facility] Pablo Croft MD 03/09/2012 [facility] Pablo Croft MD 02/24/2012 [facility] Pablo Croft MD 02/11/2012 Office visit Pablo Croft MD 01/28/2012 Office visit Pablo Croft MD 01/19/2012 Office visit Odette Elam MD 12/03/2011 Office visit Reji Bowens MD 11/12/2011 Office visit Alison Antoine APRN 10/28/2011 Procedures Reji Bowens MD 10/07/2011 Office visit Odette Elam MD 09/04/2011 Surgery Reji Bowens MD 08/15/2011 Surgery Reji Bowens MD 07/22/2011 [facility] Naveen Aguilar MD 07/22/2011 [facility] Reji Bowens MD 07/14/2011 Surgery Reji Bowens MD 06/26/2011 Office visit Odette Elam MD 06/24/2011 Office visit Reji Bowens MD 12/04/2010 [facility] Asha Church MD
--- OUTSIDE RECORDS SUMMARY | 2018-02-14 13:47 | XMS REPORT ---
Author Author Chelsea Rodríguez Organization [facility] Address [address] [place], [place] [id number] Care Team Providers Care Director Of Aviation Name Role Phone Chelsea Rodríguez PCP Chelsea [...] route every 6 hours for 30 days [facility] St[facility] Pack 300 mg (9)- [...] then Take 1 tab x 2 days. [place] 10-325 mg oral tablet 05/03/2015 06/02/2015 take [...] Per 1 Mg [facility]# [address]-63 Reviewed 11/27/2015 12:00 AM Depo-Medrol 40mg Reviewed [...] Reviewed 04/24/2016 12:00 AM Toradol 60 Mg [facility]#0506-4443-96 Reviewed 06/11/2016 12:00 AM Consult/Referral Reviewed 06/11/2016 2:41 PM URINALYSIS AUTO W/O SCOPE Reviewed 06/11/2016 12:00 AM URINE CULTURE/COLONY COUNT Reviewed 06/13/2016 12:00 AM Splint, prefabricated, wrist or ankle Reviewed 07/31/2016 12:00 AM LIPID PANEL Reviewed 07/31/2016 12:00 AM MAMMOGRAPHY SCREENING, DIGITAL Reviewed 10/29/2011 12:00 AM CYSTOMETROGRAM W/SUPERVISOR SIGN SHOP&UP Reviewed 10/29/2011 12:00 AM ELECTRO-UROFLOWMETRY FIRST Reviewed [...] Depo-Medrol, Per 120 Mg [facility]#9095-2448-31 Reviewed 2017 12:00 AM COMPLETE CBC W/AUTO DIFF WBC Returned 2017 12:00 AM COMPREHEN METABOLIC PANEL Returned 2017 12:00 AM LIPID PANEL Returned 2017 12:00 AM ASSAY THYROID STIM HORMONE Returned 2017 12:00 AM MAMMOGRAPHY SCREENING, DIGITAL Returned 07/21/2012 12:00 AM THER/PROPH/DIAG INJ SC/IM Reviewed 07/21/2012 12:00 AM Depo-Medrol, Per 120 Mg [facility]#8916-2901-84 Reviewed 09/01/2012 12:00 AM Drug Screen (Non-Medicare) Reviewed 09/01/2012 12:00 AM DRAIN/INJ JOINT/BURSA W/O US Reviewed 09/01/2012 12:00 AM Kenalog, Per 10 Mg [facility]#0484-2383-81 Reviewed 11/02/2012 12:00 AM Norflex, Up to 60 Mg [facility]#28506-143-63 Reviewed 11/02/2012 12:00 AM INJ TRIGGER POINT 1/2 MUSCL Reviewed 11/02/2012 12:00 AM Bupivicaine, 30 ml [facility]#2048-2701-41 Reviewed 11/02/2012 12:00 AM THER/PROPH/DIAG INJ SC/IM Reviewed 11/02/2012 12:00 AM Norflex, Up to 60 Mg [facility]#96584-344-60 Reviewed 12/27/2012 12:00 AM COMPLETE CBC W/AUTO [...] 12:00 AM Decadron, Per 1 Mg [facility]# [address]-01 Reviewed 05/31/2013 12:00 AM Depo-Medrol, Per 80 Mg [facility]#1371-0957-36 Reviewed 05/31/2013 12:00 AM THER/PROPH/DIAG INJ SC/IM Reviewed 06/06/2013 12:00 AM MUSCLE TEST 2 LIMBS Reviewed 06/06/2013 12:00 AM Nerve conduction studies with F-wave Reviewed 08/26/2013 12:00 AM MAMMOGRAM SCREENING Reviewed 08/26/2013 12:00 AM MAMMOGRAM SCREENING Reviewed 08/30/2013 12:00 AM THER/PROPH/DIAG INJ SC/IM Reviewed 08/30/2013 12:00 AM Decadron, Per 1 Mg [facility]# [address]-86 Reviewed 08/30/2013 12:00 AM Depo-Medrol, Per 80 Mg [facility]#6862-9636-69 Reviewed 11/17/2013 12:00 AM THER/PROPH/DIAG INJ SC/IM Reviewed 11/17/2013 12:00 AM Decadron, Per 1 Mg [facility]# [address]-12 Reviewed 11/17/2013 12:00 AM Depo-Medrol 40mg Reviewed 01/06/2014 12:00 AM THER/PROPH/DIAG INJ SC/IM Reviewed 01/06/2014 12:00 AM Decadron, Per 1 Mg [facility]# [address]-26 Reviewed 01/06/2014 12:00 AM Rocephin 1 gram [facility]#1552-6987-30 Reviewed 01/10/2014 12:00 AM OFFICE/OUTPATIENT VISIT EST [...] Per 1 Mg [facility]# [address]-23 Reviewed 10/12/2014 12:00 AM Depo-Medrol 40mg Reviewed [...] CVX Influenza 03/02/2013 sanofi pasteur PMC Fluzone [id number] Intramuscular Left Deltoid 03/02/2013 12/17/2012 141 X 02/28/2014 [employer] MSD Pneumovax 23 [id number] Intramuscular Left Deltoid 02/28/2014 02/27/2009 33 Influenza 03/23/2015 [facility] PM[facility] Fluzone Quadrivalent [id number] Intramuscular Right Deltoid 03/23/2015 12/29/2014 140 Influenza 03/04/2016 [facility] PMC Fluzone Quadrivalent UI 684 [id number] Intramuscular Left Deltoid 03/04/2016 12/29/2014 141 Tdap 02/20/2017 [employer] SKB BOOSTRIX [id number] Intramuscular Right Arm 02/20/2017 07/18/2014 115 Influenza 02/20/2017 [facility] PMC Fluzone Quadrivalent [id number] Intramuscular Left Arm 02/20/2017 12/29/2014 150 History [...] SI joint pain b 2013 9:09AM Neuralgia Jul 01 2013 9:09AM [...] Number Start Date [employer] [place] [id number] N/A [employer] [place] [id number] Saturday, 2011 [employer] [place] [id number] N/A [employer] [place] [id number] Thursday, 2013 [facility] UMR [id number] N/A [employer] [id number] N/A [id number] ResCare [id number] N/A [employer] [facility] [employer] [id number] N/A Res Care ResCare [id number] DOI [id number] May BCBS Bcbs [facility] [id number] N/A History of Encounters Visit Date Visit Type Provider 2017 Office visit Chelsea Rodríguez PATIENT CENTERED CARE SPECIALIST 05/22/2017 Office visit Chelsea Rodríguez PATIENT CENTERED CARE SPECIALIST 02/20/2017 Office visit Chelsea Rodríguez PATIENT CENTERED CARE SPECIALIST 02/10/2017 Office visit Jeremy West DO 01/31/2017 Office visit Dimitri Beebe SPEED READING TEACHER 11/20/2016 Office visit Chelsea Rodríguez PATIENT CENTERED CARE SPECIALIST 08/29/2016 Office visit Chelsea Rodríguez PATIENT CENTERED CARE SPECIALIST 07/31/2016 Office visit Chelsea Rodríguez PATIENT CENTERED CARE SPECIALIST 06/11/2016 Office visit Chelsea Rodríguez PATIENT CENTERED CARE SPECIALIST 06/05/2016 Office visit Leonardo Cowan PATIENT CENTERED CARE SPECIALIST 05/14/2016 Office visit Chelsea Rodríguez PATIENT CENTERED CARE SPECIALIST 05/05/2016 Office visit Leonardo Cowan PATIENT CENTERED CARE SPECIALIST 04/24/2016 Office visit Chelsea Rodríguez PATIENT CENTERED CARE SPECIALIST 04/07/2016 Office visit Chelsea Rodríguez PATIENT CENTERED CARE SPECIALIST 03/04/2016 Office visit Chelsea Rodríguez PATIENT CENTERED CARE SPECIALIST 01/14/2016 Office visit Chelsea Marcos PATIENT CENTERED CARE SPECIALIST 01/09/2016 Office visit Leonardo Cowan PATIENT CENTERED CARE SPECIALIST 01/04/2016 Office visit Leonardo Cowan PATIENT CENTERED CARE SPECIALIST 11/27/2015 Office visit Chelsea Marcos PATIENT CENTERED CARE SPECIALIST 08/23/2015 Office visit Chelsea Marcos PATIENT CENTERED CARE SPECIALIST 07/19/2015 Office visit 07/19/2015 Office visit Chelsea Marcos PATIENT CENTERED CARE SPECIALIST 06/21/2015 Office visit Chelsea Rodríguez PATIENT CENTERED CARE SPECIALIST 05/03/2015 Nurse visit Adela PORTER 04/12/2015 Office visit Adela PITTMANP 03/23/2015 Office visit Chelsea Rodríguez PATIENT CENTERED CARE SPECIALIST 03/08/2015 Office visit Adela Cole CHARGE AUTHORIZER 02/14/2015 Office visit Leonardo Cowan PATIENT CENTERED CARE SPECIALIST 02/08/2015 Office visit Adela PITTMANP 02/07/2015 Office visit Leonardo Cowan PATIENT CENTERED CARE SPECIALIST 01/11/2015 Office visit Adela PITTMANP 12/28/2014 Office visit Chelsea Rodríguez PATIENT CENTERED CARE SPECIALIST 12/14/2014 Nurse visit Adela PORTER 11/23/2014 Nurse visit Adela PITTMANP 10/26/2014 Office visit Adela PITTMANP 10/12/2014 Office visit 10/12/2014 Office visit Chelsea Rodríguez PATIENT CENTERED CARE SPECIALIST 10/05/2014 Nurse visit Adela Cole CHARGE AUTHORIZER 09/07/2014 Office visit Adela Cole CHARGE AUTHORIZER 08/17/2014 Office visit 08/17/2014 Office visit 08/17/2014 Office visit Chelsea Rodríguez PATIENT CENTERED CARE SPECIALIST 08/14/2014 Office visit Adela Cole CHARGE AUTHORIZER 07/27/2014 Office visit Adela Cole CHARGE AUTHORIZER 2014 Office visit Adela Cole CHARGE AUTHORIZER 2014 Office visit Mica Lr PATIENT CENTERED CARE SPECIALIST 06/28/2014 Nurse visit Adela Cole CHARGE AUTHORIZER 05/31/2014 Office visit Adela Cole CHARGE AUTHORIZER 05/03/2014 Voided Adela Cole CHARGE AUTHORIZER 04/26/2014 Office visit Mica Lr PATIENT CENTERED CARE SPECIALIST 04/05/2014 Office visit Adela Cole CHARGE AUTHORIZER 03/10/2014 Office visit Adela PITTMANP 02/28/2014 Office visit Mica Lr PATIENT CENTERED CARE SPECIALIST 02/24/2014 Office visit Adela PITTMANP 02/06/2014 Office visit Adela PITTMANP 01/10/2014 Nurse visit Suzan Liang MD 01/06/2014 Office visit Mica Lr PATIENT CENTERED CARE SPECIALIST 12/15/2013 Office visit Adela Cole CHARGE AUTHORIZER 11/17/2013 Office visit Chelsea Rodríguez PATIENT CENTERED CARE SPECIALIST 11/17/2013 Office visit Adela PITTMANP 10/20/2013 Office visit Adela PITTMANP 09/22/2013 Office visit Adela PITTMANP 08/30/2013 Office visit Chelsea Rodríguez PATIENT CENTERED CARE SPECIALIST 08/26/2013 Office visit Beti Reyna PATIENT CENTERED CARE SPECIALIST 07/29/2013 Office visit Adela PITTMANP 07/06/2013 Barb Campbell MD 07/01/2013 Office visit Adela Cole CHARGE AUTHORIZER 06/06/2013 Office visit Adela PITTMANP 05/31/2013 Office visit Chelsea Rodríguez PATIENT CENTERED CARE SPECIALIST 05/11/2013 Office visit Adela PITTMANP 03/22/2013 Office visit Adela PITTMANP 03/10/2013 Office visit Adela PITTMANP 03/04/2013 Office visit Adela PITTMANP 03/02/2013 Office visit Odette Elam MD 02/22/2013 Office visit Adela Cole CHARGE AUTHORIZER 01/28/2013 Office visit Chelsea Rodríguez PATIENT CENTERED CARE SPECIALIST 01/25/2013 Office visit Adela PITTMANP 12/27/2012 Office visit Adela Cole CHARGE AUTHORIZER 12/07/2012 [facility] Pablo Croft MD 11/24/2012 Office visit Pablo Croft MD 11/02/2012 Office visit Kylah Wright PATIENT CENTERED CARE SPECIALIST 11/02/2012 Office visit Mica Lr PATIENT CENTERED CARE SPECIALIST 10/05/2012 [facility] Pablo Croft MD 09/30/2012 Office visit Kylah Wright PATIENT CENTERED CARE SPECIALIST 09/01/2012 Office visit Kylah Wright PATIENT CENTERED CARE SPECIALIST 07/21/2012 Office visit Odette Elam MD 06/16/2012 [...] Bowens MD 11/12/2011 Office visit Alison Antoine PATIENT CENTERED CARE SPECIALIST 10/28/2011 Procedures Reji Bowens MD 10/07/2011 Office [...]
--- OUTSIDE RECORDS SUMMARY | 2018-02-14 13:53 | XMS REPORT ---
Author Chelsea Soliz Organization [facility] Address [address] [place], [place] [address] Care Team Providers Care Test Designer Name Role Phone Chelsea Rodríguez PCP Unavailable [...] then Take 1 tab x 2 days. 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# [address]-44 Reviewed 11/27/2015 12:00 AM Depo-Medrol 40mg Reviewed [...] and screen Returned 10/29/2011 12:00 AM CYSTOMETROGRAM W/SKIN DIVING TEACHER&UP Reviewed 10/29/2011 12:00 AM ELECTRO-UROFLOWMETRY FIRST Reviewed 10/29/2011 12:00 AM INTRAABDOMINAL PRESSURE TEST Reviewed 11/12/2011 12:00 AM X-RAY URETHRA/BLADDER Reviewed 11/12/2011 12:00 AM X-RAY EXAM SI JOINTS 3/> VWS Reviewed 01/28/2012 12:00 AM MRI LUMBAR SPINE W/O DYE Returned 04/20/2012 12:00 AM THER/PROPH/DIAG INJ SC/IM Reviewed 04/20/2012 12:00 AM Depo-Medrol, Per 120 Mg [facility]#6051-7169-25 Reviewed 07/21/2012 12:00 AM THER/PROPH/DIAG INJ SC/IM Reviewed 07/21/2012 12:00 AM Depo-Medrol, Per 120 Mg [facility]#8763-2120-24 Reviewed 09/01/2012 12:00 AM Drug Screen (Non-Medicare) Reviewed 09/01/2012 12:00 AM DRAIN/INJ JOINT/BURSA W/O US Reviewed 09/01/2012 12:00 AM Kenalog, Per 10 Mg [facility]#1438-2373-40 Reviewed 11/02/2012 12:00 AM Norflex, Up to 60 Mg [facility]#34138-292-27 Reviewed 11/02/2012 12:00 AM INJ TRIGGER POINT 1/2 MUSCL Reviewed 11/02/2012 12:00 AM Bupivicaine, 30 ml [facility]#3082-6256-37 Reviewed 11/02/2012 12:00 AM THER/PROPH/DIAG INJ SC/IM Reviewed 11/02/2012 12:00 AM Norflex, Up to 60 Mg [facility]#24897-563-14 Reviewed 12/27/2012 12:00 AM COMPLETE CBC W/AUTO DIFF WBC Returned 12/27/2012 12:00 AM COMPREHEN METABOLIC PANEL Returned 12/27/2012 12:00 AM ASSAY THYROID STIM HORMONE Returned 12/27/2012 12:00 AM VITAMIN B-12 Returned 12/27/2012 12:00 AM ASSAY OF FERRITIN Returned 12/27/2012 12:00 AM ANTINUCLEAR ANTIBODIES Reviewed 12/27/2012 12:00 AM DNA ANTIBODY [place] Reviewed 12/27/2012 12:00 AM NUCLEAR ANTIGEN ANTIBODY [...] 12:00 AM Decadron, Per 1 Mg [facility]# [address]-69 Reviewed 05/31/2013 12:00 AM Depo-Medrol, Per 80 Mg [place]#4346-8918-45 Reviewed 05/31/2013 12:00 AM THER/PROPH/DIAG INJ SC/IM Reviewed 06/06/2013 12:00 AM MUSCLE TEST 2 LIMBS Reviewed 06/06/2013 12:00 AM Nerve conduction studies with F-wave Reviewed 08/26/2013 12:00 AM MAMMOGRAM SCREENING Returned 08/26/2013 12:00 AM MAMMOGRAM SCREENING Reviewed 08/30/2013 12:00 AM THER/PROPH/DIAG INJ SC/IM Reviewed 08/30/2013 12:00 AM Decadron, Per 1 Mg ND# [address]-34 Reviewed 08/30/2013 12:00 AM Depo-Medrol, Per 80 Mg [place]#1543-6990-68 Reviewed 11/17/2013 12:00 AM THER/PROPH/DIAG INJ SC/IM Reviewed 11/17/2013 12:00 AM Decadron, Per 1 Mg ND# [address]-44 Reviewed 11/17/2013 12:00 AM Depo-Medrol 40mg Reviewed 01/06/2014 12:00 AM THER/PROPH/DIAG INJ SC/IM Reviewed 01/06/2014 12:00 AM Decadron, Per 1 Mg [facility]# [address]-18 Reviewed 01/06/2014 12:00 AM Rocephin 1 gram [place]#0175-6190-31 Reviewed 01/10/2014 12:00 AM OFFICE/OUTPATIENT VISIT EST [...] 12:00 AM Decadron, Per 1 Mg [facility]# [address]-58 Reviewed 10/12/2014 12:00 AM Depo-Medrol 40mg Reviewed [...] CVX Influenza 03/02/2013 sanofi pasteur PMC Fluzone [id number] Intramuscular Left Deltoid 03/02/2013 12/17/2012 141 X 02/28/2014 [employer]ck [employer] MSD Pneumovax 23 [id number] Intramuscular Left Deltoid 02/28/2014 02/27/2009 33 Influenza 03/23/2015 sanofi pasteur PMC Fluzone Quadrivalent [id number] Intramuscular Right Deltoid 03/23/2015 12/29/2014 140 History [...] Number Start Date [employer] [place] [id number] N/A Res Care ResCare [id number] N/A [employer] [place] [id number] Saturday, 2011 [employer] [place] [id number] N/A [facility] [id number] Thursday, [address] [facility] [id number] N/A [facility] [employer] [facility] [id number] N/A History of Encounters Visit Date Visit Type Provider 01/14/2016 Office visit Chelsea Rodríguez ARTIFICIAL LEATHER CALENDER OPERATOR 01/09/2016 Office visit Leonardo Cowan ARTIFICIAL LEATHER CALENDER OPERATOR 01/04/2016 Office visit Leonardo Cowan ARTIFICIAL LEATHER CALENDER OPERATOR 11/27/2015 Office visit Chelsea Rodríguez ARTIFICIAL LEATHER CALENDER OPERATOR 08/23/2015 Office visit Chelsea Rodríguez ARTIFICIAL LEATHER CALENDER OPERATOR 07/19/2015 Office visit 07/19/2015 Office visit Chelsea Rodríguez ARTIFICIAL LEATHER CALENDER OPERATOR 06/21/2015 Office visit Chelsea Rodríguez ARTIFICIAL LEATHER CALENDER OPERATOR 05/03/2015 Nurse visit Adela PITTMANP 04/12/2015 Office visit Adela PITTMANP 03/23/2015 Office visit Chelsea Rodríguez ARTIFICIAL LEATHER CALENDER OPERATOR 03/08/2015 Office visit Adela PITTMANP 02/14/2015 Office visit Leonardo Pazran ARTIFICIAL LEATHER CALENDER OPERATOR 02/08/2015 Office visit Adela PORTER 02/07/2015 Office visit Leonardo Camryn ARTIFICIAL LEATHER CALENDER OPERATOR 01/11/2015 Office visit Adela PITTMANP 12/28/2014 Office visit Chelsea Rodríguez ARTIFICIAL LEATHER CALENDER OPERATOR 12/14/2014 Nurse visit Adela PITTMANP 11/23/2014 Nurse visit Adela PITTMANP 10/26/2014 Office visit Adela PITTMANP 10/12/2014 Office visit 10/12/2014 Office visit Chelsea Rodríguez ARTIFICIAL LEATHER CALENDER OPERATOR 10/05/2014 Nurse visit Adela PITTMANP 09/07/2014 Office visit Adela PITTMANP 08/17/2014 Office visit 08/17/2014 Office visit 08/17/2014 Office visit Chelsea Rodríguez ARTIFICIAL LEATHER CALENDER OPERATOR 08/14/2014 Office visit Adela PITTMANP 07/27/2014 Office visit Adela PITTMANP 2014 Office visit Adela PITTMANP 2014 Office visit Mica Lr ARTIFICIAL LEATHER CALENDER OPERATOR 06/28/2014 Nurse visit Adela PITTMANP 05/31/2014 Office visit Adela PITTMANP 05/03/2014 Voided Adela PITTMANP 04/26/2014 Office visit Mica Lr ARTIFICIAL LEATHER CALENDER OPERATOR 04/05/2014 Office visit Adela PITTMANP 03/10/2014 Office visit Adela Cole DIRECTOR FEDERAL 02/28/2014 Office visit Mica Lr ARTIFICIAL LEATHER CALENDER OPERATOR 02/24/2014 Office visit Adela Manjit Douglas DIRECTOR FEDERAL 02/06/2014 Office visit Adela JohnsonMarcus Douglas DIRECTOR FEDERAL 01/10/2014 Nurse visit Suzan Liang MD 01/06/2014 Office visit Mica Lr ARTIFICIAL LEATHER CALENDER OPERATOR 12/15/2013 Office visit Adela Cole DIRECTOR FEDERAL 11/17/2013 Office visit Chelsea Marcos ARTIFICIAL LEATHER CALENDER OPERATOR 11/17/2013 Office visit Adela MMarcus Cole DIRECTOR FEDERAL 10/20/2013 Office visit Adela AlexMarcus Cole DIRECTOR FEDERAL 09/22/2013 Office visit Adela Manjit Douglas DIRECTOR FEDERAL 08/30/2013 Office visit Chelsea Marcos ARTIFICIAL LEATHER CALENDER OPERATOR 08/26/2013 Office visit Beti Reyna ARTIFICIAL LEATHER CALENDER OPERATOR 07/29/2013 Office visit Adela Cole DIRECTOR FEDERAL 07/06/2013 [facility] Elmira Campbell MD 07/01/2013 Office visit Adela Cole DIRECTOR FEDERAL 06/06/2013 Office visit Adela AlexMarcus Cole DIRECTOR FEDERAL 05/31/2013 Office visit Chelsea Rodríguez ARTIFICIAL LEATHER CALENDER OPERATOR 05/11/2013 Office visit Adela Cole DIRECTOR FEDERAL 03/22/2013 Office visit Adela Cole DIRECTOR FEDERAL 03/10/2013 Office visit Adela Cole DIRECTOR FEDERAL 03/04/2013 Office visit Adela PITTMANP 03/02/2013 Office visit Odette Elam MD 02/22/2013 Office visit Adela PITTMANP 01/28/2013 Office visit Chelsea Rodríguez ARTIFICIAL LEATHER CALENDER OPERATOR 01/25/2013 Office visit Adela PITTMANP 12/27/2012 Office visit Adela PITTMANP 12/07/2012 [facility] Pablo Croft MD 11/24/2012 Office visit Pablo Croft MD 11/02/2012 Office visit Kylah Wright ARTIFICIAL LEATHER CALENDER OPERATOR 11/02/2012 Office visit Mica Lr ARTIFICIAL LEATHER CALENDER OPERATOR 10/05/2012 [facility] Pablo Croft MD 09/30/2012 Office visit Kylah Wright ARTIFICIAL LEATHER CALENDER OPERATOR 09/01/2012 Office visit Kylah Wright ARTIFICIAL LEATHER CALENDER OPERATOR 07/21/2012 Office visit Odette Elam MD 06/16/2012 Office visit Pablo Croft MD 05/11/2012 [facility] Pablo Croft MD 04/28/2012 Office visit Pablo Croft MD 04/20/2012 Office visit Odette Elam MD 03/29/2012 Office visit Pablo Croft MD 03/16/2012 [facility] Pablo Croft MD 03/09/2012 [facility] Pablo Croft MD 02/24/2012 [facility] Pablo Croft MD 02/11/2012 Office visit Pablo Croft MD 01/28/2012 Office visit Pablo Croft MD 01/19/2012 Office visit Odette Elam MD 12/03/2011 Office visit Reji Bowens MD 11/12/2011 Office visit Alison Antoine APRN 10/28/2011 Procedures Reji Bowens MD 10/07/2011 Office visit Odette Elam MD 09/04/2011 Surgery Reji Bowens MD 08/15/2011 Surgery Reji Bowens MD 07/22/2011 [facility] Naveen Aguilar MD 07/22/2011 [facility] Reji Bowens MD 07/14/2011 Surgery Reji Bowens MD 06/26/2011 Office visit Odette Elam MD 06/24/2011 Office visit Reji Bowens MD 12/04/2010 [facility] Asha Church MD
--- OUTSIDE RECORDS SUMMARY | 2018-02-14 14:03 | XMS REPORT ---
Author Chelsea Soliz Organization [facility] Address [address] [place], [place] [id number] Care Team Providers Care Crusher Name Role Phone Chelsea Rodríguez PCP Unavailable Chelsea Rodríguez PreferredProvider Unavailable Allergies and Adverse Reactions Name Reaction Notes Keflex yeast infection does not want to take due to causes yeast infection Plan of Treatment Planned Activity Comments Planned Date Planned Time Plan/Goal Treadmill 06/22/2015 12:00 AM EKG (12-lead electrocardiogram) 06/21/2015 12:00 AM CBC With Auto Differential 08/29/2016 [...] TAKE 1 TABLET BY MOUTH ONCE DAILY Effexor XR 37.5 mg oral capsule,extended release 24hr 06/11/2016 take 1 capsule (37.5 mg) by oral route once daily with food cyclobenzaprine 10 mg oral tablet 07/30/2016 take 1 tablet by oral route once a day (at bedtime) for 30 days cyclobenzaprine 10 mg oral tablet 08/28/2016 TAKE 1 TABLET BY MOUTH ONCE EVERY NIGHT AT BEDTIME Patanol 0.1 % ophthalmic drops 08/29/2016 instill 1 drop into affected eye(s ) by ophthalmic route 2 times per day at an interval of 6 to 8 hours alprazolam 0.5 mg oral tablet 08/29/2016 11/27/2016 take 1 tablet by oral route every 6 hours for 30 days Flonase Allergy Relief 50 mcg/actuation nasal spray,suspension 08/29/2016 inhale 1 spray (50 mcg) in each nostril by intranasal route once daily Effexor XR 75 mg oral capsule,extended release 24hr 08/29/2016 take 1 capsule (75 mg) by oral route once daily Restoril 15 mg oral capsule 08/29/2016 11/27/2016 take 1 capsule (15 mg) by oral [...] then Take 1 tab x 2 days. [place] 10-325 mg oral tablet 05/03/2015 06/02/2015 take [...] HC BMI BSA BMI Percentile O2 Sat(%) 08/29/2016 10:35:00 AM 122 mmHg 72 mmHg [...] 12:00 AM Decadron, Per [address] [facility]# [address]-16 Reviewed 11/27/2015 12:00 AM Depo-Medrol 40mg Reviewed [...] 04/24/2016 12:00 AM Toradol [address] [facility]#0430-9078-17 Reviewed 06/11/2016 12:00 AM Consult/Referral Reviewed 06/11/2016 2:41 PM URINALYSIS AUTO W/O SCOPE Reviewed 06/11/2016 12:00 AM URINE CULTURE/COLONY COUNT Returned 06/13/2016 12:00 AM Splint, prefabricated, wrist or ankle Reviewed 07/31/2016 12:00 AM LIPID PANEL Returned 07/31/2016 12:00 AM MAMMOGRAPHY SCREENING, DIGITAL Reviewed 10/29/2011 12:00 AM CYSTOMETROGRAM W/LOCAL AREA NETWORK SYSTEMS ADMINSTRATOR&UP Reviewed 10/29/2011 12:00 AM ELECTRO-UROFLOWMETRY FIRST Reviewed 10/29/2011 12:00 AM INTRAABDOMINAL PRESSURE TEST Reviewed 11/12/2011 12:00 AM X-RAY URETHRA/BLADDER Reviewed 11/12/2011 12:00 AM X-RAY EXAM SI JOINTS 3/> VWS Reviewed 01/28/2012 12:00 AM MRI LUMBAR SPINE W/O DYE Reviewed 04/20/2012 12:00 AM THER/PROPH/DIAG INJ SC/IM Reviewed 04/20/2012 12:00 AM Depo-Medrol, Per [address] [facility]#2955-4058-45 Reviewed 07/21/2012 12:00 AM THER/PROPH/DIAG INJ SC/IM Reviewed 07/21/2012 12:00 AM Depo-Medrol, Per [address] [facility]#8432-0193-01 Reviewed 09/01/2012 12:00 AM Drug Screen (Non-Medicare) Reviewed 09/01/2012 12:00 AM DRAIN/INJ JOINT/BURSA W/O US Reviewed 09/01/2012 12:00 AM Kenalog, Per [address] [facility]#8533-0216-90 Reviewed 11/02/2012 12:00 AM Norflex, Up to [address] [facility]#76104-221-13 Reviewed 11/02/2012 12:00 AM INJ TRIGGER POINT 1/2 MUSCL Reviewed 11/02/2012 12:00 AM Bupivicaine, [address] [facility]#1342-9981-63 Reviewed 11/02/2012 12:00 AM THER/PROPH/DIAG INJ SC/IM Reviewed 11/02/2012 12:00 AM Norflex, Up to [address] [facility]#49065-122-20 Reviewed 12/27/2012 12:00 AM COMPLETE CBC W/AUTO DIFF WBC Reviewed 12/27/2012 12:00 AM COMPREHEN METABOLIC PANEL Reviewed 12/27/2012 12:00 AM ASSAY THYROID STIM HORMONE Reviewed 12/27/2012 12:00 AM VITAMIN B-12 Reviewed 12/27/2012 12:00 AM ASSAY OF FERRITIN Reviewed 12/27/2012 12:00 AM ANTINUCLEAR ANTIBODIES Reviewed 12/27/2012 12:00 AM DNA ANTIBODY [place] Reviewed 12/27/2012 12:00 AM NUCLEAR ANTIGEN ANTIBODY [...] 12:00 AM Decadron, Per [address] [facility]# [address]-07 Reviewed 05/31/2013 12:00 AM Depo-Medrol, Per [address] [facility]#7312-1754-50 Reviewed 05/31/2013 12:00 AM THER/PROPH/DIAG INJ SC/IM Reviewed 06/06/2013 12:00 AM MUSCLE TEST 2 LIMBS Reviewed 06/06/2013 12:00 AM Nerve conduction studies with F-wave Reviewed 08/26/2013 12:00 AM MAMMOGRAM SCREENING Reviewed 08/26/2013 12:00 AM MAMMOGRAM SCREENING Reviewed 08/30/2013 12:00 AM THER/PROPH/DIAG INJ SC/IM Reviewed 08/30/2013 12:00 AM Decadron, Per [address] [facility]# [address]-78 Reviewed 08/30/2013 12:00 AM Depo-Medrol, Per [address] [facility]#2396-3164-50 Reviewed 11/17/2013 12:00 AM THER/PROPH/DIAG INJ SC/IM Reviewed 11/17/2013 12:00 AM Decadron, Per [address] [facility]# [address]-28 Reviewed 11/17/2013 12:00 AM Depo-Medrol 40mg Reviewed 01/06/2014 12:00 AM THER/PROPH/DIAG INJ SC/IM Reviewed 01/06/2014 12:00 AM Decadron, Per [address] [facility]# [address]-52 Reviewed 01/06/2014 12:00 AM Rocephin [address] [facility]#0249-6443-50 Reviewed 01/10/2014 12:00 AM OFFICE/OUTPATIENT VISIT EST [...] 12:00 AM Decadron, Per [address] [facility]# [address]-06 Reviewed 10/12/2014 12:00 AM Depo-Medrol 40mg Reviewed [...] CVX Influenza 03/02/2013 sanofi pasteur PMC Fluzone [id number] Intramuscular Left Deltoid 03/02/2013 12/17/2012 141 X 02/28/2014 Merck & Co., Inc. MSD Pneumovax 23 [id number] Intramuscular Left Deltoid 02/28/2014 02/27/2009 33 Influenza 03/23/2015 sanofi pasteur PMC Fluzone Quadrivalent [id number] Intramuscular Right Deltoid 03/23/2015 12/29/2014 140 Influenza [...] SI joint pain Sep 01 2012 3:06PM meterman medication use Sep 01 2012 4:05PM Wrist [...] Group Number Start Date [employer] [place] [id number] N/A [employer] [place] [id number] Saturday, 2011 [employer] [place] [id number] N/A [employer] [place] [id number] Thursday, 2013 UMR UMR [id number] N/A [employer] Braums [id number] N/A [employer] [place] [id number] N/A Res Care ResCare [id number] N/A [employer] [id number] N/A Res Care ResCare [id number] DOI [id number] May [employer] [place] [id number] N/A History of Encounters Visit Date Visit Type Provider 08/29/2016 Office visit Chelsea Rodríguez APRN 07/31/2016 Office visit Chelsea Rodríguez TRAFFIC SERGEANT 06/11/2016 Office visit Chelsea Rodríguez TRAFFIC SERGEANT 06/05/2016 Office visit Leonardo Cowan TRAFFIC SERGEANT 05/14/2016 Office visit Chelsea Rodríguez APRN 05/05/2016 Office visit Leonardo Cowan APRN 04/24/2016 Office visit Chelsea Rodríguez TRAFFIC SERGEANT 04/07/2016 Office visit Chelsea Rodríguez APRN 03/04/2016 Office visit Chelsea Rodríguez APRN 01/14/2016 Office visit Chelsea Rodríguez APRN 01/09/2016 Office visit Leonardo Cowan APRN 01/04/2016 Office visit Leonardo Cowan TRAFFIC SERGEANT 11/27/2015 Office visit Chelsea Rodríguez TRAFFIC SERGEANT 08/23/2015 Office visit Chelsea Rodríguez TRAFFIC SERGEANT 07/19/2015 Office visit 07/19/2015 Office visit Chelsea Rodríguez TRAFFIC SERGEANT 06/21/2015 Office visit Chelsea Rodríguez TRAFFIC SERGEANT 05/03/2015 Nurse visit Adela Cole LEGAL CASHIER 04/12/2015 Office visit Adela PITTMANP 03/23/2015 Office visit Chelsea Rodríguez TRAFFIC SERGEANT 03/08/2015 Office visit Adela PITTMANP 02/14/2015 Office visit Leonardo Cowan TRAFFIC SERGEANT 02/08/2015 Office visit Adela PITTMANP 02/07/2015 Office visit Leonardo Cowan TRAFFIC SERGEANT 01/11/2015 Office visit Adela Cole LEGAL CASHIER 12/28/2014 Office visit Chelsea Rodríguez TRAFFIC SERGEANT 12/14/2014 Nurse visit Adela Cole LEGAL CASHIER 11/23/2014 Nurse visit Adela PITTMANP 10/26/2014 Office visit Adela PITTMANP 10/12/2014 Office visit 10/12/2014 Office visit Chelsea Rodríguez TRAFFIC SERGEANT 10/05/2014 Nurse visit Adela PITTMANP 09/07/2014 Office visit Adela PITTMANP 08/17/2014 Office visit 08/17/2014 Office visit 08/17/2014 Office visit Chelsea Rodríguez TRAFFIC SERGEANT 08/14/2014 Office visit Adela PITTMANP 07/27/2014 Office visit Adela PITTMANP 2014 Office visit Adela PITTMANP 2014 Office visit Mica Lr TRAFFIC SERGEANT 06/28/2014 Nurse visit Adela PITTMANP 05/31/2014 Office visit Adela PITTMANP 05/03/2014 Voided Adela PITTMANP 04/26/2014 Office visit Mica Lr TRAFFIC SERGEANT 04/05/2014 Office visit Adela PITTMANP 03/10/2014 Office visit Adela PITTMANP 02/28/2014 Office visit Mica Lr TRAFFIC SERGEANT 02/24/2014 Office visit Adela PITTMANP 02/06/2014 Office visit Adela PITTMANP 01/10/2014 Nurse visit Suzan Liang MD 01/06/2014 Office visit Mica Lr TRAFFIC SERGEANT 12/15/2013 Office visit Adela Johnson. Douglas LEGAL CASHIER 11/17/2013 Office visit Chelsea Rodríguez TRAFFIC SERGEANT 11/17/2013 Office visit Adela Manjit Douglas LEGAL CASHIER 10/20/2013 Office visit Adela Manjit Douglas LEGAL CASHIER 09/22/2013 Office visit Adela M. Douglas LEGAL CASHIER 08/30/2013 Office visit Chelsea Rodríguez TRAFFIC SERGEANT 08/26/2013 Office visit Beti Reyna TRAFFIC SERGEANT 07/29/2013 Office visit Adela Cole LEGAL CASHIER 07/06/2013 [facility] Elmira Campbell MD 07/01/2013 Office visit Adela Saravia Douglas LEGAL CASHIER 06/06/2013 Office visit Adela Cole LEGAL CASHIER 05/31/2013 Office visit Chelsea Rodríguez TRAFFIC SERGEANT 05/11/2013 Office visit Adela Manjit Douglas LEGAL CASHIER 03/22/2013 Office visit Adela Manjit Douglas LEGAL CASHIER 03/10/2013 Office visit Adela M. Douglas LEGAL CASHIER 03/04/2013 Office visit Adela Cole LEGAL CASHIER 03/02/2013 Office visit Odette Elam MD 02/22/2013 Office visit Adela Cole LEGAL CASHIER 01/28/2013 Office visit Chelsea Rodríguez TRAFFIC SERGEANT 01/25/2013 Office visit Adela JohnsonMarcus Douglas LEGAL CASHIER 12/27/2012 Office visit Adela Cole LEGAL CASHIER 12/07/2012 [facility] Pablo Croft MD 11/24/2012 Office visit Pablo Croft MD 11/02/2012 Office visit Kylah Wright TRAFFIC SERGEANT 11/02/2012 Office visit Mica Lr TRAFFIC SERGEANT 10/05/2012 [facility] Pablo Croft MD 09/30/2012 Office visit Kylah Wright TRAFFIC SERGEANT 09/01/2012 Office visit Kylah Wright TRAFFIC SERGEANT 07/21/2012 Office visit Odette Elam MD 06/16/2012 [...]
--- OUTSIDE RECORDS SUMMARY | 2018-02-14 14:11 | XMS REPORT ---
Author Chelsea Soliz Organization [facility] Address [address] [place], [place] [id number] Care Team Providers Care Department Chairperson Name Role Phone Chelsea Rodríguez PCP Unavailable [...] then Take 1 tab x 2 days. 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 [...] 12:00 AM Decadron, Per 1 Mg [facility]# [address]-62 Reviewed 11/27/2015 12:00 AM Depo-Medrol 40mg Reviewed [...] [place]/INK Returned 10/29/2011 12:00 AM CYSTOMETROGRAM W/VEHICLE PAINTER&UP Reviewed 10/29/2011 12:00 AM ELECTRO-UROFLOWMETRY FIRST Reviewed 10/29/2011 12:00 AM INTRAABDOMINAL PRESSURE TEST Reviewed 11/12/2011 12:00 AM X-RAY URETHRA/BLADDER Reviewed 11/12/2011 12:00 AM X-RAY EXAM SI JOINTS 3/> VWS Reviewed 01/28/2012 12:00 AM MRI LUMBAR SPINE W/O DYE Returned 04/20/2012 12:00 AM THER/PROPH/DIAG INJ SC/IM Reviewed 04/20/2012 12:00 AM Depo-Medrol, Per 120 Mg [facility]#7871-8240-89 Reviewed 07/21/2012 12:00 AM THER/PROPH/DIAG INJ SC/IM Reviewed 07/21/2012 12:00 AM Depo-Medrol, Per 120 Mg [facility]#1023-0893-47 Reviewed 09/01/2012 12:00 AM Drug Screen (Non-Medicare) Reviewed 09/01/2012 12:00 AM DRAIN/INJ JOINT/BURSA W/O US Reviewed 09/01/2012 12:00 AM Kenalog, Per 10 Mg [facility]#6260-2772-33 Reviewed 11/02/2012 12:00 AM Norflex, Up to 60 Mg [facility]#10651-286-22 Reviewed 11/02/2012 12:00 AM INJ TRIGGER POINT 1/2 MUSCL Reviewed 11/02/2012 12:00 AM Bupivicaine, 30 ml [facility]#0749-8229-45 Reviewed 11/02/2012 12:00 AM THER/PROPH/DIAG INJ SC/IM Reviewed 11/02/2012 12:00 AM Norflex, Up to 60 Mg [facility]#73456-723-70 Reviewed 12/27/2012 12:00 AM COMPLETE CBC W/AUTO [...] 12:00 AM Decadron, Per 1 Mg [facility]# [address]-45 Reviewed 05/31/2013 12:00 AM Depo-Medrol, Per 80 Mg [facility]#3754-3030-35 Reviewed 05/31/2013 12:00 AM THER/PROPH/DIAG INJ SC/IM Reviewed 06/06/2013 12:00 AM MUSCLE TEST 2 LIMBS Reviewed 06/06/2013 12:00 AM Nerve conduction studies with F-wave Reviewed 08/26/2013 12:00 AM MAMMOGRAM SCREENING Returned 08/26/2013 12:00 AM MAMMOGRAM SCREENING Reviewed 08/30/2013 12:00 AM THER/PROPH/DIAG INJ SC/IM Reviewed 08/30/2013 12:00 AM Decadron, Per 1 Mg [facility]# [address]-22 Reviewed 08/30/2013 12:00 AM Depo-Medrol, Per 80 Mg [facility]#2978-5508-05 Reviewed 11/17/2013 12:00 AM THER/PROPH/DIAG INJ SC/IM Reviewed 11/17/2013 12:00 AM Decadron, Per 1 Mg [facility]# [address]-75 Reviewed 11/17/2013 12:00 AM Depo-Medrol 40mg Reviewed 01/06/2014 12:00 AM THER/PROPH/DIAG INJ SC/IM Reviewed 01/06/2014 12:00 AM Decadron, Per 1 Mg [facility]# [address]-58 Reviewed 01/06/2014 12:00 AM Rocephin 1 gram [facility]#2850-8551-14 Reviewed 01/10/2014 12:00 AM OFFICE/OUTPATIENT VISIT EST [...] 12:00 AM Decadron, Per 1 Mg [facility]# [address]-85 Reviewed 10/12/2014 12:00 AM Depo-Medrol 40mg Reviewed [...] 10.90 g/dLHCT 33.60 %MCV 94.0 fLMCH 30.40 [facility] 32.40 g/dLRDW CV 13.10 %MPV 9.80 fLPLT 199 12/30/2012 11:35 AM WBC 6.7 RBC 4.98 HGB 15.20 g/dLHCT 45.50 %MCV 91.0 fLH 30.50 [facility] 33.40 g/dLRDW CV 12.70 %MPV 9.60 fLPLT [...] CVX Influenza 03/02/2013 sanofi pasteur PMC Fluzone [id number] Intramuscular Left Deltoid 03/02/2013 12/17/2012 141 X 02/28/2014 Merck & Co., Inc. MSD Pneumovax 23 [id number] Intramuscular Left Deltoid 02/28/2014 02/27/2009 33 Influenza 03/23/2015 sanofi pasteur PMC Fluzone Quadrivalent [id number] Intramuscular Right Deltoid 03/23/2015 12/29/2014 140 Influenza [...] Policy Group Number Start Date BCBS [facility] [id number] N/A Res Care ResCare [id number] N/A [facility] [employer] [id number] N/A [employer] [facility] [id number] Saturday, 2011 [employer]BS [employer] [facility] [id number] N/A [employer] [facility] [id number] Thursday, 2013 UMR UMR [id number] N/A [employer] [id number] N/A History of Encounters Visit Date Visit Type Provider 03/04/2016 Office visit Chelsea Rodríguez APRN 01/14/2016 Office visit Chelsea Rodríguez APRN 01/09/2016 Office visit Leonardo Cowan APRN 01/04/2016 Office visit Leonardo Cowan APRN 11/27/2015 Office visit Chelsea Rodríguez APRN 08/23/2015 Office visit Chelsea Rodríguez BANQUET CAPTAIN 07/19/2015 Office visit 07/19/2015 Office visit Chelsea Rodríguez BANQUET CAPTAIN 06/21/2015 Office visit Chelsea Rodríguez BANQUET CAPTAIN 05/03/2015 Nurse visit Adela Cole SURGICAL ELASTIC KNITTER 04/12/2015 Office visit Adela Cole SURGICAL ELASTIC KNITTER 03/23/2015 Office visit Chelsea Rodríguez BANQUET CAPTAIN 03/08/2015 Office visit Adela Cole SURGICAL ELASTIC KNITTER 02/14/2015 Office visit Leonardo Cowan BANQUET CAPTAIN 02/08/2015 Office visit Adela Cole SURGICAL ELASTIC KNITTER 02/07/2015 Office visit Leonardo Cowan BANQUET CAPTAIN 01/11/2015 Office visit Adela Cole SURGICAL ELASTIC KNITTER 12/28/2014 Office visit Chelsea Rodríguez BANQUET CAPTAIN 12/14/2014 Nurse visit Adela Cole SURGICAL ELASTIC KNITTER 11/23/2014 Nurse visit Adela PITTMANP 10/26/2014 Office visit Adela PITTMANP 10/12/2014 Office visit 10/12/2014 Office visit Chelsea Rodríguez BANQUET CAPTAIN 10/05/2014 Nurse visit Adela PITTMANP 09/07/2014 Office visit Adela PITTMANP 08/17/2014 Office visit 08/17/2014 Office visit 08/17/2014 Office visit Chelsea Rodríguez BANQUET CAPTAIN 08/14/2014 Office visit Adela PITTMANP 07/27/2014 Office visit Adela PITTMANP 2014 Office visit Adela PITTMANP 2014 Office visit Mica Lr BANQUET CAPTAIN 06/28/2014 Nurse visit Adela PITTMANP 05/31/2014 Office visit Adela PITTMANP 05/03/2014 Voided Adela PITTMANP 04/26/2014 Office visit Mica Lr BANQUET CAPTAIN 04/05/2014 Office visit Adela PITTMANP 03/10/2014 Office visit Adela PITTMANP 02/28/2014 Office visit Mica Lr BANQUET CAPTAIN 02/24/2014 Office visit Adela PITTMANP 02/06/2014 Office visit Adela PITTMANP 01/10/2014 Nurse visit Suzan Liang MD 01/06/2014 Office visit Mica Lr BANQUET CAPTAIN 12/15/2013 Office visit Adela PITTMANP 11/17/2013 Office visit Chelsea Rodríguze BANQUET CAPTAIN 11/17/2013 Office visit Adela AlexMarcus Cole SURGICAL ELASTIC KNITTER 10/20/2013 Office visit Adela Cole SURGICAL ELASTIC KNITTER 09/22/2013 Office visit Adela Manjit Douglas SURGICAL ELASTIC KNITTER 08/30/2013 Office visit Chelsea Rodríguez BANQUET CAPTAIN 08/26/2013 Office visit Beti MMarcus Reyna BANQUET CAPTAIN 07/29/2013 Office visit Adela Cole SURGICAL ELASTIC KNITTER 07/06/2013 [facility] Elmira Campbell MD 07/01/2013 Office visit Adela M. Douglas SURGICAL ELASTIC KNITTER 06/06/2013 Office visit Adelacatherine Cole SURGICAL ELASTIC KNITTER 05/31/2013 Office visit Chlesea Rodríguez BANQUET CAPTAIN 05/11/2013 Office visit Adela Manjit Douglas SURGICAL ELASTIC KNITTER 03/22/2013 Office visit Adela AlexMarcus Cole SURGICAL ELASTIC KNITTER 03/10/2013 Office visit Adela M. Douglas SURGICAL ELASTIC KNITTER 03/04/2013 Office visit Adela Manjit Douglas SURGICAL ELASTIC KNITTER 03/02/2013 Office visit Odette Elam MD 02/22/2013 Office visit Adela Cole SURGICAL ELASTIC KNITTER 01/28/2013 Office visit Chelsea Rodríguez BANQUET CAPTAIN 01/25/2013 Office visit Adela AlexMarcus Cole SURGICAL ELASTIC KNITTER 12/27/2012 Office visit Adela Cole SURGICAL ELASTIC KNITTER 12/07/2012 [facility] Pablo Croft MD 11/24/2012 Office visit Pablo Croft MD 11/02/2012 Office visit Kylah Wright BANQUET CAPTAIN 11/02/2012 Office visit Mica Lr BANQUET CAPTAIN 10/05/2012 [facility] Pablo Croft MD 09/30/2012 Office visit Kylah Wright BANQUET CAPTAIN 09/01/2012 Office visit Kylah Wright BANQUET CAPTAIN 07/21/2012 Office visit Odette Elam MD 06/16/2012 Office visit Pablo Croft MD 05/11/2012 [facility] Pablo Croft MD 04/28/2012 Office visit Pablo Croft MD 04/20/2012 Office visit Odette Elam MD 03/29/2012 Office visit Pablo Croft MD 03/16/2012 [facility] Pablo Croft MD 03/09/2012 [facility] Pablo Croft MD 02/24/2012 Hospital Pablo Croft MD 02/11/2012 Office visit Pablo Croft MD 01/28/2012 Office visit Pablo Corft MD 01/19/2012 Office visit Odette Elam MD [...]
--- OUTSIDE RECORDS SUMMARY | 2018-02-14 14:21 | XMS REPORT ---
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 [...] 11/27/2015 12:00 AM Decadron, Per 1 Mg [facility]# [address]-91 Reviewed 11/27/2015 12:00 AM Depo-Medrol 40mg Reviewed [...] AM HEPATITIS B SURFACE AG EIA Returned 07/14/2011 12:00 AM COMPLETE CBC W/AUTO DIFF WBC Returned 07/14/2011 12:00 AM COMPREHEN METABOLIC PANEL Returned 07/14/2011 12:00 AM Type and screen Returned 10/29/2011 12:00 AM CYSTOMETROGRAM W/BLOOD TESTER FOWL&UP Reviewed 10/29/2011 12:00 AM ELECTRO-UROFLOWMETRY FIRST Reviewed 10/29/2011 12:00 AM INTRAABDOMINAL PRESSURE TEST Reviewed 11/12/2011 12:00 AM X-RAY URETHRA/BLADDER Reviewed 11/12/2011 12:00 AM X-RAY EXAM SI JOINTS 3/> VWS Reviewed 01/28/2012 12:00 AM MRI LUMBAR SPINE W/O DYE Returned 04/20/2012 12:00 AM THER/PROPH/DIAG INJ SC/IM Reviewed 04/20/2012 12:00 AM Depo-Medrol, Per 120 Mg [facility]#9821-6585-75 Reviewed 07/21/2012 12:00 AM THER/PROPH/DIAG INJ SC/IM Reviewed 07/21/2012 12:00 AM Depo-Medrol, Per 120 Mg [facility]#3419-7962-63 Reviewed 09/01/2012 12:00 AM Drug Screen (Non-Medicare) Reviewed 09/01/2012 12:00 AM DRAIN/INJ JOINT/BURSA W/O US Reviewed 09/01/2012 12:00 AM Kenalog, Per 10 Mg [facility]#3541-2484-97 Reviewed 11/02/2012 12:00 AM Norflex, Up to 60 Mg [facility]#34245-822-22 Reviewed 11/02/2012 12:00 AM INJ TRIGGER POINT 1/2 MUSCL Reviewed 11/02/2012 12:00 AM Bupivicaine, 30 ml [facility]#8772-7421-05 Reviewed 11/02/2012 12:00 AM THER/PROPH/DIAG INJ SC/IM Reviewed 11/02/2012 12:00 AM Norflex, Up to 60 Mg [facility]#56575-953-02 Reviewed 12/27/2012 12:00 AM COMPLETE CBC W/AUTO DIFF WBC Returned 12/27/2012 12:00 AM COMPREHEN METABOLIC PANEL Returned 12/27/2012 12:00 AM ASSAY THYROID STIM HORMONE Returned 12/27/2012 12:00 AM VITAMIN B-12 Returned 12/27/2012 12:00 AM ASSAY OF FERRITIN Returned 12/27/2012 12:00 AM ANTINUCLEAR ANTIBODIES Reviewed 12/27/2012 12:00 AM DNA ANTIBODY [place] Reviewed 12/27/2012 12:00 AM NUCLEAR ANTIGEN ANTIBODY [...] 12:00 AM Decadron, Per 1 Mg ND# [address]-66 Reviewed 05/31/2013 12:00 AM Depo-Medrol, Per 80 Mg ND#8211-3138-96 Reviewed 05/31/2013 12:00 AM THER/PROPH/DIAG INJ SC/IM Reviewed 06/06/2013 12:00 AM MUSCLE TEST 2 LIMBS Reviewed 06/06/2013 12:00 AM Nerve conduction studies with F-wave Reviewed 08/26/2013 12:00 AM MAMMOGRAM SCREENING Returned 08/26/2013 12:00 AM MAMMOGRAM SCREENING Reviewed 08/30/2013 12:00 AM THER/PROPH/DIAG INJ SC/IM Reviewed 08/30/2013 12:00 AM Decadron, Per 1 Mg ND# [address]-19 Reviewed 08/30/2013 12:00 AM Depo-Medrol, Per 80 Mg ND#4562-3535-34 Reviewed 11/17/2013 12:00 AM THER/PROPH/DIAG INJ SC/IM Reviewed 11/17/2013 12:00 AM Decadron, Per 1 Mg ND# [address]-36 Reviewed 11/17/2013 12:00 AM Depo-Medrol 40mg Reviewed 01/06/2014 12:00 AM THER/PROPH/DIAG INJ SC/IM Reviewed 01/06/2014 12:00 AM Decadron, Per 1 Mg ND# [address]-98 Reviewed 01/06/2014 12:00 AM Rocephin 1 gram [facility]#7895-7755-51 Reviewed 01/10/2014 12:00 AM OFFICE/OUTPATIENT VISIT EST [...] Decadron, Per 1 Mg [facility]# [address]-46 Reviewed 10/12/2014 12:00 AM Depo-Medrol 40mg Reviewed [...] CVX Influenza 03/02/2013 sanofi pasteur PMC Fluzone [id number] Intramuscular Left Deltoid 03/02/2013 12/17/2012 141 X 02/28/2014 [employer] MSD Pneumovax 23 [id number] Intramuscular Left Deltoid 02/28/2014 02/27/2009 33 Influenza 03/23/2015 sanofi pasteur PMC Fluzone Quadrivalent [id number] Intramuscular Right Deltoid 03/23/2015 12/29/2014 140 History [...] chin, initial encounter Jan 09 2016 3:39PM Payers Insurance Name Company Name Plan Name Plan Number Policy Number Policy Group Number Start Date [employer] [place] [id number] N/A [employer] [id number] N/A [employer] [place] [id number] Saturday, 2011 [employer] [place] [id number] N/A [employer] [place] [id number] Thursday, 2013 UMR UMR [id number] N/A [employer] [id number] N/A History of Encounters Visit Date Visit Type Provider 01/09/2016 Office visit Leonardo Cowan APRN 01/04/2016 Office visit Leonardo Cowan APRN 11/27/2015 Office visit Chelsea Rodríguez APRN 08/23/2015 Office visit Chelsea Rodríguez APRN 07/19/2015 Office visit 07/19/2015 Office visit Chelsea Rodríguez APRN 06/21/2015 Office visit Chelsea Rodríguez APRN 05/03/2015 Nurse visit Adela PORTER 04/12/2015 Office visit Adela M. Douglas PHYSICIAN INTENSIVIST 03/23/2015 Office visit Chelsea Rodríguez MECHANICAL INTERN 03/08/2015 Office visit Adela M. Douglas PHYSICIAN INTENSIVIST 02/14/2015 Office visit Leonardo Cowan MECHANICAL INTERN 02/08/2015 Office visit Adelacatherine Cole PHYSICIAN INTENSIVIST 02/07/2015 Office visit Leonardo Cowan MECHANICAL INTERN 01/11/2015 Office visit Adela Cole PHYSICIAN INTENSIVIST 12/28/2014 Office visit Chelsea Rodríguez MECHANICAL INTERN 12/14/2014 Nurse visit Adela Cole PHYSICIAN INTENSIVIST 11/23/2014 Nurse visit Adela Cole PHYSICIAN INTENSIVIST 10/26/2014 Office visit Adela JohnsonMarcus Douglas PHYSICIAN INTENSIVIST 10/12/2014 Office visit 10/12/2014 Office visit Chelsea Rodríguez MECHANICAL INTERN 10/05/2014 Nurse visit Adela AlexMarcus Douglas PHYSICIAN INTENSIVIST 09/07/2014 Office visit Adela PITTMANP 08/17/2014 Office visit 08/17/2014 Office visit 08/17/2014 Office visit Chelsea Rodríguez MECHANICAL INTERN 08/14/2014 Office visit Adela PITTMANP 07/27/2014 Office visit Adela PITTMANP 2014 Office visit Adela PITTMANP 2014 Office visit Mica Lr MECHANICAL INTERN 06/28/2014 Nurse visit Adela PITTMANP 05/31/2014 Office visit Adela PITTMANP 05/03/2014 Voided Adela PITTMANP 04/26/2014 Office visit Mica Lr MECHANICAL INTERN 04/05/2014 Office visit Adela PITTMANP 03/10/2014 Office visit Adela PITTMANP 02/28/2014 Office visit Mica Lr MECHANICAL INTERN 02/24/2014 Office visit Adela PITTMANP 02/06/2014 Office visit Adela PITTMANP 01/10/2014 Nurse visit Suzan Liang MD 01/06/2014 Office visit Mica Lr MECHANICAL INTERN 12/15/2013 Office visit Adela PITTMANP 11/17/2013 Office visit Chelsea Rodríguez MECHANICAL INTERN 11/17/2013 Office visit Adela PITTMANP 10/20/2013 Office visit Adela PITTMANP 09/22/2013 Office visit Adela PITTMANP 08/30/2013 Office visit Chelsea Rodríguez MECHANICAL INTERN 08/26/2013 Office visit Beti MMarcus Reyna MECHANICAL INTERN 07/29/2013 Office visit Adela AlexMarcus Cole PHYSICIAN INTENSIVIST 07/06/2013 Procedures Elmira Campbell MD 07/01/2013 Office visit Adela Cole PHYSICIAN INTENSIVIST 06/06/2013 Office visit Adela Cole PHYSICIAN INTENSIVIST 05/31/2013 Office visit Chelsea Rodríguez MECHANICAL INTERN 05/11/2013 Office visit Adela Cole PHYSICIAN INTENSIVIST 03/22/2013 Office visit Adela Cole PHYSICIAN INTENSIVIST 03/10/2013 Office visit Adela Cole PHYSICIAN INTENSIVIST 03/04/2013 Office visit Adela Saravia Douglas PHYSICIAN INTENSIVIST 03/02/2013 Office visit Odette Elam MD 02/22/2013 Office visit Adela Saravia Douglas PHYSICIAN INTENSIVIST 01/28/2013 Office visit Chelsea Rodríugez MECHANICAL INTERN 01/25/2013 Office visit Adela M. Douglas PHYSICIAN INTENSIVIST 12/27/2012 Office visit Adela Cole PHYSICIAN INTENSIVIST 12/07/2012 Hospital Pablo Croft MD 11/24/2012 Office visit Pablo Croft MD 11/02/2012 Office visit Kylah Wright MECHANICAL INTERN 11/02/2012 Office visit Mica Lr MECHANICAL INTERN 10/05/2012 [facility] Pablo Croft MD 09/30/2012 Office visit Kylah Wright MECHANICAL INTERN 09/01/2012 Office visit Kylah Wright MECHANICAL INTERN 07/21/2012 Office visit Odette Elam MD 06/16/2012 [...] MD 11/12/2011 Office visit Alison Antoine MECHANICAL INTERN 10/28/2011 Procedures Reji Bowens MD 10/07/2011 Office visit Odette Elam MD 09/04/2011 Surgery Reji Bowens MD 08/15/2011 Surgery Reji Bowens MD 07/22/2011 [facility] Naveen Aguilar MD 07/22/2011 [facility] Reji Bowens MD 07/14/2011 Surgery Reji Bowens MD 06/26/2011 Office visit Odette Elam MD 06/24/2011 Office visit Reji Bowens MD 12/04/2010 [facility] Asha Church MD
--- OUTSIDE RECORDS SUMMARY | 2018-02-14 14:23 | XMS REPORT ---
Author Author Adela Cole [facility] Address [address] [place], [place] [id number] Care Team Providers Care Payment Poster Name Role Phone Adela Cole PCP Allergies [...] once daily at bedtime for 30 days [place] 10-325 mg oral tablet 05/03/2015 06/02/2015 take [...] and screen Returned 10/29/2011 12:00 AM CYSTOMETROGRAM W/MACHINE UMBRELLA TIPPER&UP Reviewed 10/29/2011 12:00 AM ELECTRO-UROFLOWMETRY FIRST Reviewed 10/29/2011 12:00 AM INTRAABDOMINAL PRESSURE TEST Reviewed 11/12/2011 12:00 AM X-RAY URETHRA/BLADDER Reviewed 11/12/2011 12:00 AM X-RAY EXAM SI JOINTS 3/> VWS Reviewed 01/28/2012 12:00 AM MRI LUMBAR SPINE W/O DYE Returned 04/20/2012 12:00 AM THER/PROPH/DIAG INJ SC/IM Reviewed 04/20/2012 12:00 AM Depo-Medrol, Per 120 Mg [facility]#2078-5093-99 Reviewed 07/21/2012 12:00 AM THER/PROPH/DIAG INJ SC/IM Reviewed 07/21/2012 12:00 AM Depo-Medrol, Per 120 Mg [facility]#1126-8474-33 Reviewed 09/01/2012 12:00 AM Drug Screen (Non-Medicare) Reviewed 09/01/2012 12:00 AM Kenalog, Per 10 Mg [facility]#1374-2709-42 Reviewed 11/02/2012 12:00 AM Norflex, Up to 60 Mg [facility]#15434-937-59 Reviewed 11/02/2012 12:00 AM INJ TRIGGER POINT 1/2 MUSCL Reviewed 11/02/2012 12:00 AM Bupivicaine, 30 ml [facility]#8801-2907-58 Reviewed 11/02/2012 12:00 AM THER/PROPH/DIAG INJ SC/IM Reviewed 11/02/2012 12:00 AM Norflex, Up to 60 Mg [facility]#57800-670-61 Reviewed 12/27/2012 12:00 AM COMPLETE CBC W/AUTO DIFF WBC Returned 12/27/2012 12:00 AM COMPREHEN METABOLIC PANEL Returned 12/27/2012 12:00 AM ASSAY THYROID STIM HORMONE Returned 12/27/2012 12:00 AM VITAMIN B-12 Returned 12/27/2012 12:00 AM ASSAY OF FERRITIN Returned 12/27/2012 12:00 AM ANTINUCLEAR ANTIBODIES Reviewed 12/27/2012 12:00 AM DNA ANTIBODY [place] Reviewed 12/27/2012 12:00 AM NUCLEAR ANTIGEN ANTIBODY [...] [facility]# [address]-53 Reviewed 05/31/2013 12:00 AM Depo-Medrol, Per 80 Mg [facility]#9730-7854-72 Reviewed 05/31/2013 12:00 AM THER/PROPH/DIAG INJ SC/IM Reviewed 06/06/2013 12:00 AM MUSCLE TEST 2 LIMBS Reviewed 06/06/2013 12:00 AM Nerve conduction studies with F-wave Reviewed 08/26/2013 12:00 AM MAMMOGRAM SCREENING Returned 08/26/2013 12:00 AM MAMMOGRAM SCREENING Reviewed 08/30/2013 12:00 AM THER/PROPH/DIAG INJ SC/IM Reviewed 08/30/2013 12:00 AM Decadron, Per 1 Mg [facility]# [address]-63 Reviewed 08/30/2013 12:00 AM Depo-Medrol, Per 80 Mg [facility]#0111-6733-42 Reviewed 11/17/2013 12:00 AM THER/PROPH/DIAG INJ SC/IM Reviewed 11/17/2013 12:00 AM Decadron, Per 1 Mg [facility]# [address]-82 Reviewed 11/17/2013 12:00 AM Depo-Medrol 40mg Reviewed 01/06/2014 12:00 AM THER/PROPH/DIAG INJ SC/IM Reviewed 01/06/2014 12:00 AM Decadron, Per 1 Mg [facility]# [address]-41 Reviewed 01/06/2014 12:00 AM Rocephin 1 gram [facility]#2507-0434-58 Reviewed 01/10/2014 12:00 AM OFFICE/OUTPATIENT VISIT EST [...] [facility]# [address]-83 Reviewed 10/12/2014 12:00 AM Depo-Medrol 40mg Reviewed [...] CVX Influenza 03/02/2013 sanofi pasteur PMC Fluzone [id number] Intramuscular Left Deltoid 03/02/2013 12/17/2012 141 Pneumococcal 02/28/2014 [employer] 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 Sep 01 2012 4:05PM Wrist [...] SI joint pain Apr 12 2015 3:17PM Payers Insurance Name Company Name Plan Name Plan Number Policy Number Policy Group Number Start Date R UMR [id number] N/A [facility] [employer] [facility] [id number] N/A [facility] [id number] Saturday, 2011 [employer] [place] [id number] N/A [employer] [place] [id number] Thursday, 2013 History of Encounters Visit Date Visit Type Provider 04/12/2015 Office visit Adela Cole NET SQL DEVELOPER 03/23/2015 Office visit Chelsea Marcos LEAD DATABASE ADMINISTRATOR 03/08/2015 Office visit Adela Cole NET SQL DEVELOPER 02/14/2015 Office visit Leonardo Cowan LEAD DATABASE ADMINISTRATOR 02/08/2015 Office visit Adela PITTMANP 02/07/2015 Office visit Leonardo Cowan LEAD DATABASE ADMINISTRATOR 01/11/2015 Office visit Adela Cole NET SQL DEVELOPER 12/28/2014 Office visit Chelsea Rodríguez LEAD DATABASE ADMINISTRATOR 12/14/2014 Nurse visit Adela PITTMANP 11/23/2014 Nurse visit Adela PITTMANP 10/26/2014 Office visit Adela Cole NET SQL DEVELOPER 10/12/2014 Office visit Chelsea Rodríguez LEAD DATABASE ADMINISTRATOR 10/05/2014 Nurse visit Adela PITTMANP 09/07/2014 Office visit Adela PITTMANP 08/17/2014 Office visit Chelsea Rodríguez LEAD DATABASE ADMINISTRATOR 08/14/2014 Office visit Adela PITTMANP 07/27/2014 Office visit Adela PITTMANP 2014 Office visit Adela PITTMANP 2014 Office visit Mica Lr LEAD DATABASE ADMINISTRATOR 06/28/2014 Nurse visit Adela PITTMANP 05/31/2014 Office visit Adela PITTMANP 05/03/2014 Voided Adela PITTMANP 04/26/2014 Office visit Mica Lr LEAD DATABASE ADMINISTRATOR 04/05/2014 Office visit Adela PITTMANP 03/10/2014 Office visit Adela PITTMANP 02/28/2014 Office visit Mica Lr LEAD DATABASE ADMINISTRATOR 02/24/2014 Office visit Adela PITTMANP 02/06/2014 Office visit Adela PITTMANP 01/10/2014 Nurse visit Suzan Liang MD 01/06/2014 Office visit Mica Lr LEAD DATABASE ADMINISTRATOR 12/15/2013 Office visit Adela PITTMANP 11/17/2013 Office visit Chelsea Rodríguez LEAD DATABASE ADMINISTRATOR 11/17/2013 Office visit Adela Cole NET SQL DEVELOPER 10/20/2013 Office visit Adela M. Douglas NET SQL DEVELOPER 09/22/2013 Office visit Adela M. Douglas NET SQL DEVELOPER 08/30/2013 Office visit Chelsea Marcos LEAD DATABASE ADMINISTRATOR 08/26/2013 Office visit Beti Manjit Reyna LEAD DATABASE ADMINISTRATOR 07/29/2013 Office visit Adela M. Douglas NET SQL DEVELOPER 07/06/2013 [facility] Elmira Campbell MD 07/01/2013 Office visit Adela Saravia Douglas NET SQL DEVELOPER 06/06/2013 Office visit Adelacatherine Cole NET SQL DEVELOPER 05/31/2013 Office visit Chelsea Rodríguez LEAD DATABASE ADMINISTRATOR 05/11/2013 Office visit Adela M. Douglas NET SQL DEVELOPER 03/22/2013 Office visit Adela M. Douglas NET SQL DEVELOPER 03/10/2013 Office visit Adela Cole NET SQL DEVELOPER 03/04/2013 Office visit Adela M. Douglas NET SQL DEVELOPER 03/02/2013 Office visit Odette Elam MD 02/22/2013 Office visit Adela AlxeMarcus Cole NET SQL DEVELOPER 01/28/2013 Office visit Chelsea Rodríguez LEAD DATABASE ADMINISTRATOR 01/25/2013 Office visit Adela Manjit Douglas NET SQL DEVELOPER 12/27/2012 Office visit Adela PITTMANP 12/07/2012 [facility] Pablo Croft MD 11/24/2012 Office visit Pablo Croft MD 11/02/2012 Office visit Kylah Wright LEAD DATABASE ADMINISTRATOR 11/02/2012 Office visit Mica Lr LEAD DATABASE ADMINISTRATOR 10/05/2012 [facility] Pablo Croft MD 09/30/2012 Office visit Kylah Wright LEAD DATABASE ADMINISTRATOR 09/01/2012 Office visit Kylah Wright LEAD DATABASE ADMINISTRATOR 07/21/2012 Office visit Odette Elam MD 06/16/2012 [...]
--- OUTSIDE RECORDS SUMMARY | 2018-02-14 14:26 | XMS REPORT ---
Author Chelsea Soliz Organization [facility] Address [address] [place], [place] [id number] Care Team Providers Care Preparator Name Role Phone Chelsea Rodríguez PCP Unavailable [...] then Take 1 tab x 2 days. Vevay 10-325 mg oral tablet 05/03/2015 06/02/2015 take [...] Decadron, Per 1 Mg [facility]# [address]-43 Reviewed 11/27/2015 12:00 AM Depo-Medrol 40mg Reviewed [...] [place]/INK Returned 10/29/2011 12:00 AM CYSTOMETROGRAM W/ULTRASOUND MANAGER&UP Reviewed 10/29/2011 12:00 AM ELECTRO-UROFLOWMETRY FIRST Reviewed 10/29/2011 12:00 AM INTRAABDOMINAL PRESSURE TEST Reviewed 11/12/2011 12:00 AM X-RAY URETHRA/BLADDER Reviewed 11/12/2011 12:00 AM X-RAY EXAM SI JOINTS 3/> VWS Reviewed 01/28/2012 12:00 AM MRI LUMBAR SPINE W/O DYE Returned 04/20/2012 12:00 AM THER/PROPH/DIAG INJ SC/IM Reviewed 04/20/2012 12:00 AM Depo-Medrol, Per 120 Mg [facility]#0598-7644-40 Reviewed 07/21/2012 12:00 AM THER/PROPH/DIAG INJ SC/IM Reviewed 07/21/2012 12:00 AM Depo-Medrol, Per 120 Mg [facility]#7966-2372-91 Reviewed 09/01/2012 12:00 AM Drug Screen (Non-Medicare) Reviewed 09/01/2012 12:00 AM DRAIN/INJ JOINT/BURSA W/O US Reviewed 09/01/2012 12:00 AM Kenalog, Per 10 Mg [facility]#8819-8723-30 Reviewed 11/02/2012 12:00 AM Norflex, Up to 60 Mg [facility]#19235-196-86 Reviewed 11/02/2012 12:00 AM INJ TRIGGER POINT 1/2 MUSCL Reviewed 11/02/2012 12:00 AM Bupivicaine, 30 ml [facility]#3189-3553-42 Reviewed 11/02/2012 12:00 AM THER/PROPH/DIAG INJ SC/IM Reviewed 11/02/2012 12:00 AM Norflex, Up to 60 Mg [facility]#02951-521-11 Reviewed 12/27/2012 12:00 AM COMPLETE CBC W/AUTO DIFF WBC Returned 12/27/2012 12:00 AM COMPREHEN METABOLIC PANEL Returned 12/27/2012 12:00 AM ASSAY THYROID STIM HORMONE Returned 12/27/2012 12:00 AM VITAMIN B-12 Returned 12/27/2012 12:00 AM ASSAY OF FERRITIN Returned 12/27/2012 12:00 AM ANTINUCLEAR ANTIBODIES Reviewed 12/27/2012 12:00 AM DNA ANTIBODY [place] Reviewed 12/27/2012 12:00 AM NUCLEAR ANTIGEN ANTIBODY [...] Decadron, Per 1 Mg [facility]# [address]-50 Reviewed 05/31/2013 12:00 AM Depo-Medrol, Per 80 Mg [facility]#5392-8435-36 Reviewed 05/31/2013 12:00 AM THER/PROPH/DIAG INJ SC/IM Reviewed 06/06/2013 12:00 AM MUSCLE TEST 2 LIMBS Reviewed 06/06/2013 12:00 AM Nerve conduction studies with F-wave Reviewed 08/26/2013 12:00 AM MAMMOGRAM SCREENING Returned 08/26/2013 12:00 AM MAMMOGRAM SCREENING Reviewed 08/30/2013 12:00 AM THER/PROPH/DIAG INJ SC/IM Reviewed 08/30/2013 12:00 AM Decadron, Per 1 Mg [facility]# [address]-81 Reviewed 08/30/2013 12:00 AM Depo-Medrol, Per 80 Mg [facility]#7312-2291-80 Reviewed 11/17/2013 12:00 AM THER/PROPH/DIAG INJ SC/IM Reviewed 11/17/2013 12:00 AM Decadron, Per 1 Mg [facility]# [address]-91 Reviewed 11/17/2013 12:00 AM Depo-Medrol 40mg Reviewed 01/06/2014 12:00 AM THER/PROPH/DIAG INJ SC/IM Reviewed 01/06/2014 12:00 AM Decadron, Per 1 Mg [facility]# [address]-95 Reviewed 01/06/2014 12:00 AM Rocephin 1 gram [facility]#9803-7970-34 Reviewed 01/10/2014 12:00 AM OFFICE/OUTPATIENT VISIT EST [...] Decadron, Per 1 Mg [facility]# [address]-42 Reviewed 10/12/2014 12:00 AM Depo-Medrol 40mg Reviewed [...] 10.90 g/dLHCT 33.60 %MCV 94.0 fLMCH 30.40 [facility] g/dLRDW CV 13.10 %MPV 9.80 fLPLT 199 12/30/2012 11:35 AM WBC 6.7 RBC 4.98 HGB 15.20 g/dLHCT 45.50 %MCV 91.0 fLH 30.50 [facility] 33.40 g/dLRDW CV 12.70 %MPV 9.60 fLPLT [...] CVX Influenza 03/02/2013 sanofi pasteur PMC Fluzone [id number] Intramuscular Left Deltoid 03/02/2013 12/17/2012 141 X 02/28/2014 [employer] MSD Pneumovax 23 [id number] Intramuscular Left Deltoid 02/28/2014 02/27/2009 33 Influenza 03/23/2015 sanofi pasteur PMC Fluzone Quadrivalent [id number] Intramuscular Right Deltoid 03/23/2015 12/29/2014 140 Influenza [...] Policy Group Number Start Date [employer] [facility] [id number] N/A [facility] [employer] [id number] N/A [facility] [employer] [id number] N/A [employer] [facility] [id number] Saturday, 2011 [employer] [facility] [id number] N/A [employer] [facility] [id number] Thursday, 2013 UMR UMR [id number] N/A [employer] [id number] N/A History of Encounters Visit Date Visit Type Provider 03/04/2016 Office visit Chelsea Rodríguez APRN 01/14/2016 Office visit Chelsea Rodríguez APRN 01/09/2016 Office visit Leonardo Cowan APRN 01/04/2016 Office visit Leonardo Cowan APRN 11/27/2015 Office visit Chelsea Rodríguez APRN 08/23/2015 Office visit Chelsea Rodríguez ADVERTISING REP 07/19/2015 Office visit 07/19/2015 Office visit Chelsea Rodríguez ADVERTISING REP 06/21/2015 Office visit Chelsea Rodríguez ADVERTISING REP 05/03/2015 Nurse visit Adela Cole SURG TECH 04/12/2015 Office visit Adela Cole SURG TECH 03/23/2015 Office visit Chelsea Rodríguez ADVERTISING REP 03/08/2015 Office visit Adela Cole SURG TECH 02/14/2015 Office visit Leonardo Cowan ADVERTISING REP 02/08/2015 Office visit Adela Cole SURG TECH 02/07/2015 Office visit Leonardo Cowan ADVERTISING REP 01/11/2015 Office visit Adela Cole SURG TECH 12/28/2014 Office visit Chelsea Rodríguez ADVERTISING REP 12/14/2014 Nurse visit Adela Cole SURG TECH 11/23/2014 Nurse visit Adela PITTMANP 10/26/2014 Office visit Adela PITTMANP 10/12/2014 Office visit 10/12/2014 Office visit Chelsea Rodríguez ADVERTISING REP 10/05/2014 Nurse visit Adela PITTMANP 09/07/2014 Office visit Adela PITTMANP 08/17/2014 Office visit 08/17/2014 Office visit 08/17/2014 Office visit Chelsea Rodríguez ADVERTISING REP 08/14/2014 Office visit Adela PITTMANP 07/27/2014 Office visit Adela PITTMANP 2014 Office visit Adela PITTMANP 2014 Office visit Mica Lr ADVERTISING REP 06/28/2014 Nurse visit Adela PITTMANP 05/31/2014 Office visit Adela PITTMANP 05/03/2014 Voided Adela PITTMANP 04/26/2014 Office visit Mica Lr ADVERTISING REP 04/05/2014 Office visit Adela PITTMANP 03/10/2014 Office visit Adela PITTMANP 02/28/2014 Office visit Mica Lr ADVERTISING REP 02/24/2014 Office visit Adela PITTMANP 02/06/2014 Office visit Adela PITTMANP 01/10/2014 Nurse visit Suzan Liang MD 01/06/2014 Office visit Mica Lr ADVERTISING REP 12/15/2013 Office visit Adela PITTMANP 11/17/2013 Office visit Chelsea Rodríguez ADVERTISING REP 11/17/2013 Office visit Adela AlexMarcus Cole SURG TECH 10/20/2013 Office visit Adela Cole SURG TECH 09/22/2013 Office visit Adela Manjit Douglas SURG TECH 08/30/2013 Office visit Chelsea Rodríguez ADVERTISING REP 08/26/2013 Office visit Beti MMarcus Reyna ADVERTISING REP 07/29/2013 Office visit Adela Cole SURG TECH 07/06/2013 [facility] Elmira Campbell MD 07/01/2013 Office visit Adela M. Douglas SURG TECH 06/06/2013 Office visit Adelacatherine Cole SURG TECH 05/31/2013 Office visit Chelsea Rodríguez ADVERTISING REP 05/11/2013 Office visit Adela Manjit Douglas SURG TECH 03/22/2013 Office visit Adela AlexMarcus Cole SURG TECH 03/10/2013 Office visit Adela M. Douglas SURG TECH 03/04/2013 Office visit Adela Manjit Douglas SURG TECH 03/02/2013 Office visit Odette Elam MD 02/22/2013 Office visit Adela Cole SURG TECH 01/28/2013 Office visit Chelsea Rodríguez ADVERTISING REP 01/25/2013 Office visit Adela AlexMarcus Cole SURG TECH 12/27/2012 Office visit Adela Cole SURG TECH 12/07/2012 Hospital Pablo Croft MD 11/24/2012 Office visit Pablo Croft MD 11/02/2012 Office visit Kylah Wright ADVERTISING REP 11/02/2012 Office visit Mica Lr ADVERTISING REP 10/05/2012 [facility] Pablo Croft MD 09/30/2012 Office visit Kylah Wright ADVERTISING REP 09/01/2012 Office visit Kylah Wright ADVERTISING REP 07/21/2012 Office visit Odette Elam MD 06/16/2012 Office visit Pablo Croft MD 05/11/2012 [facility] Pablo Croft MD 04/28/2012 Office visit Pablo Croft MD 04/20/2012 Office visit Odette Elam MD 03/29/2012 Office visit Pablo Croft MD 03/16/2012 [facility] Pablo Croft MD 03/09/2012 [facility] Pablo Croft MD 02/24/2012 Hospital Pablo [...]
--- OUTSIDE RECORDS SUMMARY | 2018-02-14 14:31 | XMS REPORT ---
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 History [...] and screen Returned 10/29/2011 12:00 AM CYSTOMETROGRAM W/BODY WELDER&UP Reviewed 10/29/2011 12:00 AM ELECTRO-UROFLOWMETRY FIRST Reviewed 10/29/2011 12:00 AM INTRAABDOMINAL PRESSURE TEST Reviewed 11/12/2011 12:00 AM X-RAY URETHRA/BLADDER Reviewed 11/12/2011 12:00 AM X-RAY EXAM SI JOINTS 3/> VWS Reviewed 01/28/2012 12:00 AM MRI LUMBAR SPINE W/O DYE Returned 04/20/2012 12:00 AM THER/PROPH/DIAG INJ SC/IM Reviewed 04/20/2012 12:00 AM Depo-Medrol, Per 120 Mg [facility]#3981-1694-18 Reviewed 07/21/2012 12:00 AM THER/PROPH/DIAG INJ SC/IM Reviewed 07/21/2012 12:00 AM Depo-Medrol, Per 120 Mg [facility]#6523-2012-99 Reviewed 09/01/2012 12:00 AM Drug Screen (Non-Medicare) Reviewed 09/01/2012 12:00 AM Kenalog, Per 10 Mg [facility]#7210-7062-90 Reviewed 11/02/2012 12:00 AM Norflex, Up to 60 Mg [facility]#27565-037-34 Reviewed 11/02/2012 12:00 AM INJ TRIGGER POINT 1/2 MUSCL Reviewed 11/02/2012 12:00 AM Bupivicaine, 30 ml [facility]#8589-8098-65 Reviewed 11/02/2012 12:00 AM THER/PROPH/DIAG INJ SC/IM Reviewed 11/02/2012 12:00 AM Norflex, Up to 60 Mg [facility]#32938-434-70 Reviewed 12/27/2012 12:00 AM COMPLETE CBC W/AUTO DIFF WBC Returned 12/27/2012 12:00 AM COMPREHEN METABOLIC PANEL Returned 12/27/2012 12:00 AM ASSAY THYROID STIM HORMONE Returned 12/27/2012 12:00 AM VITAMIN B-12 Returned 12/27/2012 12:00 AM ASSAY OF FERRITIN Returned 12/27/2012 12:00 AM ANTINUCLEAR ANTIBODIES Reviewed 12/27/2012 12:00 AM DNA ANTIBODY [place] Reviewed 12/27/2012 12:00 AM NUCLEAR ANTIGEN ANTIBODY [...] 12:00 AM Decadron, Per 1 Mg [place]# [address]-33 Reviewed 05/31/2013 12:00 AM Depo-Medrol, Per 80 Mg [facility]#8399-1429-47 Reviewed 05/31/2013 12:00 AM THER/PROPH/DIAG INJ SC/IM Reviewed 06/06/2013 12:00 AM MUSCLE TEST 2 LIMBS Reviewed 06/06/2013 12:00 AM Nerve conduction studies with F-wave Reviewed 08/26/2013 12:00 AM MAMMOGRAM SCREENING Returned 08/26/2013 12:00 AM MAMMOGRAM SCREENING Reviewed 08/30/2013 12:00 AM THER/PROPH/DIAG INJ SC/IM Reviewed 08/30/2013 12:00 AM Decadron, Per 1 Mg ND# [address]-49 Reviewed 08/30/2013 12:00 AM Depo-Medrol, Per 80 Mg [facility]#6887-3082-52 Reviewed 11/17/2013 12:00 AM THER/PROPH/DIAG INJ SC/IM Reviewed 11/17/2013 12:00 AM Decadron, Per 1 Mg [facility]# [address]-31 Reviewed 11/17/2013 12:00 AM Depo-Medrol 40mg Reviewed 01/06/2014 12:00 AM THER/PROPH/DIAG INJ SC/IM Reviewed 01/06/2014 12:00 AM Decadron, Per 1 Mg [facility]# [address]-31 Reviewed 01/06/2014 12:00 AM Rocephin 1 gram [facility]#7400-7364-31 Reviewed 01/10/2014 12:00 AM OFFICE/OUTPATIENT VISIT EST [...] 12:00 AM Decadron, Per 1 Mg [facility]# [address]-67 Reviewed 10/12/2014 12:00 AM Depo-Medrol 40mg Reviewed [...] CVX Influenza 03/02/2013 sanofi pasteur PMC Fluzone [id number] Intramuscular Left Deltoid 03/02/2013 12/17/2012 141 X 02/28/2014 Merck & Co[employer] Inc[employer] MSD Pneumovax 23 [id number] Intramuscular Left Deltoid 02/28/2014 02/27/2009 33 Influenza 03/23/2015 sanofi pasteur PMC Fluzone Quadrivalent [id number] Intramuscular Right Deltoid 03/23/2015 12/29/2014 140 History [...] Policy Number Policy Group Number Start Date [facility] UMR [id number] N/A [facility] [employer] [facility] [id number] N/A [employer] [facility] [id number] Saturday, 2011 [employer] [facility] [place] [id number] N/A [employer] [facility] [place] [id number] Thursday, 2013 History of Encounters Visit Date [...] APRN 02/08/2015 Office visit Adela MMarcus Cole DIE CUTTER APPRENTICE 02/07/2015 Office visit Leonardo Cowan ONION TIER 01/11/2015 Office visit Adela Cole DIE CUTTER APPRENTICE 12/28/2014 Office visit Chelsea Rodríguez ONION TIER 12/14/2014 Nurse visit Adela Cole DIE CUTTER APPRENTICE 11/23/2014 Nurse visit Adela Cole DIE CUTTER APPRENTICE 10/26/2014 Office visit Adela PITTMANP 10/12/2014 Office visit 10/12/2014 Office visit Chelsea Rodríguez ONION TIER 10/05/2014 Nurse visit Adela Cole DIE CUTTER APPRENTICE 09/07/2014 Office visit Adela Cole DIE CUTTER APPRENTICE 08/17/2014 Office visit 08/17/2014 Office visit 08/17/2014 Office visit Chelsea Rodríguez ONION TIER 08/14/2014 Office visit Adela Cole DIE CUTTER APPRENTICE 07/27/2014 Office visit Adela Cole DIE CUTTER APPRENTICE 2014 Office visit Adela PITTMANP 2014 Office visit Mica Lr ONION TIER 06/28/2014 Nurse visit Adela PITTMANP 05/31/2014 Office visit Adela PITTMANP 05/03/2014 Voided Adela PITTMANP 04/26/2014 Office visit Mica Lr ONION TIER 04/05/2014 Office visit Adela PITTMANP 03/10/2014 Office visit Adela PITTMANP 02/28/2014 Office visit Mica Lr ONION TIER 02/24/2014 Office visit Adela PITTMANP 02/06/2014 Office visit Adela PITTMANP 01/10/2014 Nurse visit Suzan Liang MD 01/06/2014 Office visit Mica Lr ONION TIER 12/15/2013 Office visit Adela PITTMANP 11/17/2013 Office visit Chelsea Marcos ONION TIER 11/17/2013 Office visit Adela PITTMANP 10/20/2013 Office visit Adela PITTMANP 09/22/2013 Office visit Adela PITTMANP 08/30/2013 Office visit Chelsea Rodríguez ONION TIER 08/26/2013 Office visit Beti Reyna ONION TIER 07/29/2013 Office visit Adela PITTMANP 07/06/2013 Procedures Elmira Campbell MD 07/01/2013 Office visit Adela AlexMarcus Cole DIE CUTTER APPRENTICE 06/06/2013 Office visit Adela AlexMarcus Cole DIE CUTTER APPRENTICE 05/31/2013 Office visit Chelsea Rodríguez ONION TIER 05/11/2013 Office visit Adela AlexMarcus Cole DIE CUTTER APPRENTICE 03/22/2013 Office visit Adela M. Douglas DIE CUTTER APPRENTICE 03/10/2013 Office visit Adela M. Douglas DIE CUTTER APPRENTICE 03/04/2013 Office visit Adela Cole DIE CUTTER APPRENTICE 03/02/2013 Office visit Odette Elam MD 02/22/2013 Office visit Adela Cole DIE CUTTER APPRENTICE 01/28/2013 Office visit Chelsea Rodríguez ONION TIER 01/25/2013 Office visit Adela Manjit Douglas DIE CUTTER APPRENTICE 12/27/2012 Office visit Adela Cole DIE CUTTER APPRENTICE 12/07/2012 [facility] Pablo Croft MD 11/24/2012 Office visit Pablo Croft MD 11/02/2012 Office visit Kylah Wright ONION TIER 11/02/2012 Office visit Mica Lr ONION TIER 10/05/2012 [facility] Pablo Croft MD 09/30/2012 Office visit Kylah Wright ONION TIER 09/01/2012 Office visit Kylah Wright ONION TIER 07/21/2012 Office visit Odette Elam MD 06/16/2012 Office visit Pablo Corft MD 05/11/2012 [facility] Pablo [...] Bowens MD 11/12/2011 Office visit Alison Antoine ONION TIER 10/28/2011 Procedures Reji Bowens MD 10/07/2011 Office [...]
--- OUTSIDE RECORDS SUMMARY | 2018-02-14 14:34 | XMS REPORT ---
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 [place] 10-325 mg oral tablet 05/03/2015 06/02/2015 take [...] Decadron, Per 1 Mg [facility]# [address]-12 Reviewed 11/27/2015 12:00 AM Depo-Medrol 40mg Reviewed [...] 12:00 AM Toradol 60 Mg [facility]#1986-0545-36 Reviewed 06/11/2016 12:00 AM Consult/Referral Reviewed 06/11/2016 2:41 PM URINALYSIS AUTO W/O SCOPE Reviewed 06/11/2016 12:00 AM URINE CULTURE/COLONY COUNT Reviewed 06/13/2016 12:00 AM Splint, prefabricated, wrist or ankle Reviewed 07/31/2016 12:00 AM LIPID PANEL Reviewed 07/31/2016 12:00 AM MAMMOGRAPHY SCREENING, DIGITAL Reviewed 10/29/2011 12:00 AM CYSTOMETROGRAM W/CREDIT VERIFIER&UP Reviewed 10/29/2011 12:00 AM ELECTRO-UROFLOWMETRY FIRST Reviewed [...] Depo-Medrol, Per 120 Mg [facility]#8191-1262-49 Reviewed 07/21/2012 12:00 AM THER/PROPH/DIAG INJ SC/IM Reviewed 07/21/2012 12:00 AM Depo-Medrol, Per 120 Mg [facility]#0277-2849-35 Reviewed 09/01/2012 12:00 AM Drug Screen (Non-Medicare) Reviewed 09/01/2012 12:00 AM DRAIN/INJ JOINT/BURSA W/O US Reviewed 09/01/2012 12:00 AM Kenalog, Per 10 Mg [facility]#6070-6062-76 Reviewed 11/02/2012 12:00 AM Norflex, Up to 60 Mg [facility]#87124-173-45 Reviewed 11/02/2012 12:00 AM INJ TRIGGER POINT 1/2 MUSCL Reviewed 11/02/2012 12:00 AM Bupivicaine, 30 ml [facility]#8154-9435-61 Reviewed 11/02/2012 12:00 AM THER/PROPH/DIAG INJ SC/IM Reviewed 11/02/2012 12:00 AM Norflex, Up to 60 Mg [facility]#50952-037-10 Reviewed 12/27/2012 12:00 AM COMPLETE CBC W/AUTO DIFF WBC Reviewed 12/27/2012 12:00 AM COMPREHEN METABOLIC PANEL Reviewed 12/27/2012 12:00 AM ASSAY THYROID STIM HORMONE Reviewed 12/27/2012 12:00 AM VITAMIN B-12 Reviewed 12/27/2012 12:00 AM ASSAY OF FERRITIN Reviewed 12/27/2012 12:00 AM ANTINUCLEAR ANTIBODIES Reviewed 12/27/2012 12:00 AM DNA ANTIBODY SUN'AQ Reviewed 12/27/2012 12:00 AM NUCLEAR ANTIGEN ANTIBODY [...] 12:00 AM Decadron, Per 1 Mg ND# [address]-27 Reviewed 05/31/2013 12:00 AM Depo-Medrol, Per 80 Mg ND#2985-6677-07 Reviewed 05/31/2013 12:00 AM THER/PROPH/DIAG INJ SC/IM Reviewed 06/06/2013 12:00 AM MUSCLE TEST 2 LIMBS Reviewed 06/06/2013 12:00 AM Nerve conduction studies with F-wave Reviewed 08/26/2013 12:00 AM MAMMOGRAM SCREENING Reviewed 08/26/2013 12:00 AM MAMMOGRAM SCREENING Reviewed 08/30/2013 12:00 AM THER/PROPH/DIAG INJ SC/IM Reviewed 08/30/2013 12:00 AM Decadron, Per 1 Mg [facility]# [address]-66 Reviewed 08/30/2013 12:00 AM Depo-Medrol, Per 80 Mg ND#9844-6351-79 Reviewed 11/17/2013 12:00 AM THER/PROPH/DIAG INJ SC/IM Reviewed 11/17/2013 12:00 AM Decadron, Per 1 Mg [facility]# [address]-86 Reviewed 11/17/2013 12:00 AM Depo-Medrol 40mg Reviewed 01/06/2014 12:00 AM THER/PROPH/DIAG INJ SC/IM Reviewed 01/06/2014 12:00 AM Decadron, Per 1 Mg [facility]# [address]-88 Reviewed 01/06/2014 12:00 AM Rocephin 1 gram ND#9909-3823-12 Reviewed 01/10/2014 12:00 AM OFFICE/OUTPATIENT VISIT EST [...] Decadron, Per 1 Mg [facility]# [address]-09 Reviewed 10/12/2014 12:00 AM Depo-Medrol 40mg Reviewed [...] CVX Influenza 03/02/2013 sanofi pasteur PMC Fluzone [id number] Intramuscular Left Deltoid 03/02/2013 12/17/2012 141 X 02/28/2014 [employer] MSD Pneumovax 23 [id number] Intramuscular Left Deltoid 02/28/2014 02/27/2009 33 Influenza 03/23/2015 sanofi pasteur PMC Fluzone Quadrivalent [id number] Intramuscular Right Deltoid 03/23/2015 12/29/2014 140 Influenza 03/04/2016 sanofi pasteur PMC Fluzone Quadrivalent UI 684 AE Intramuscular Left Deltoid 03/04/2016 12/29/2014 141 Tdap 02/20/2017 [employer] SKB BOOSTRIX [id number] Intramuscular Right Arm 02/20/2017 07/18/2014 115 Influenza 02/20/2017 [facility] Fluzone Quadrivalent [id number] Intramuscular Left Arm 02/20/2017 12/29/2014 150 History [...] joint pain Sep 01 2012 3:06PM residential medication use Sep 01 2012 4:05PM Wrist [...] Start Date [employer] [place] [id number] N/A [employer] [place] [id number] Saturday, 2011 [employer] [place] [id number] N/A [employer] [place] [id number] Thursday, 2013 UMR UMR [id number] N/A [employer] Braums [id number] N/A [employer] [place] [id number] N/A [facility] [employer] [id number] N/A [employer] [id number] N/A [employer] [facility] [employer] [id number] DOI [id number] May [employer] [place] [id number] N/A History of Encounters Visit Date Visit Type Provider 05/22/2017 Office visit Chelsea Rodríguez MANAGER PEOPLE 02/20/2017 Office visit Chelsea Rodríguez MANAGER PEOPLE 02/10/2017 Office visit Jeremy West DO 01/31/2017 Office visit Dimitri Beebe NP 11/20/2016 Office visit Chelsea Rodríguez MANAGER PEOPLE 08/29/2016 Office visit Chelsea Rodríguez MANAGER PEOPLE 07/31/2016 Office visit Chelsea Rodríguez MANAGER PEOPLE 06/11/2016 Office visit Chelsea Rodríguez MANAGER PEOPLE 06/05/2016 Office visit Leonardo Cowan MANAGER PEOPLE 05/14/2016 Office visit Chelsea Rodríguez MANAGER PEOPLE 05/05/2016 Office visit Leonardo Cowan MANAGER PEOPLE 04/24/2016 Office visit Chelsea Rodríguez MANAGER PEOPLE 04/07/2016 Office visit Chelsea Rodríguez MANAGER PEOPLE 03/04/2016 Office visit Chelsea Rodríguez MANAGER PEOPLE 01/14/2016 Office visit Chelsea Rodríguez MANAGER PEOPLE 01/09/2016 Office visit Leonardo Cowan MANAGER PEOPLE 01/04/2016 Office visit Leonardo Cowan MANAGER PEOPLE 11/27/2015 Office visit Chelsea Rodríguez MANAGER PEOPLE 08/23/2015 Office visit Chelsea Rodríguez MANAGER PEOPLE 07/19/2015 Office visit 07/19/2015 Office visit Chelsea Rodríguez MANAGER PEOPLE 06/21/2015 Office visit Chelsea Rodríguez MANAGER PEOPLE 05/03/2015 Nurse visit Adela Cole MACHINE PRECISION ETCHER 04/12/2015 Office visit Adela Cole MACHINE PRECISION ETCHER 03/23/2015 Office visit Chelsea Rodríguez MANAGER PEOPLE 03/08/2015 Office visit Adela Cole MACHINE PRECISION ETCHER 02/14/2015 Office visit Leonardo Cowan MANAGER PEOPLE 02/08/2015 Office visit Adela Cole MACHINE PRECISION ETCHER 02/07/2015 Office visit Leonardo Cowan MANAGER PEOPLE 01/11/2015 Office visit Adela Cole MACHINE PRECISION ETCHER 12/28/2014 Office visit Chelsea Rodríguez MANAGER PEOPLE 12/14/2014 Nurse visit Adela Cole MACHINE PRECISION ETCHER 11/23/2014 Nurse visit Adela PITTMANP 10/26/2014 Office visit Adela PITTMANP 10/12/2014 Office visit 10/12/2014 Office visit Chelsea Rodríguez MANAGER PEOPLE 10/05/2014 Nurse visit Adeal Cole MACHINE PRECISION ETCHER 09/07/2014 Office visit Adela PITTMANP 08/17/2014 Office visit 08/17/2014 Office visit 08/17/2014 Office visit Chelsea Rodríguez MANAGER PEOPLE 08/14/2014 Office visit Adela PITTMANP 07/27/2014 Office visit Adela PITTMANP 2014 Office visit Adela PITTMANP 2014 Office visit Mica Lr MANAGER PEOPLE 06/28/2014 Nurse visit Adela PITTMANP 05/31/2014 Office visit Adela PITTMANP 05/03/2014 Voided Adela PITTMANP 04/26/2014 Office visit Mica Lr MANAGER PEOPLE 04/05/2014 Office visit Adela PITTMANP 03/10/2014 Office visit Adela PITTMANP 02/28/2014 Office visit Mica Lr MANAGER PEOPLE 02/24/2014 Office visit Adela PITTMANP 02/06/2014 Office visit Adela PITTMANP 01/10/2014 Nurse visit Suzan Liang MD 01/06/2014 Office visit Mica Lr MANAGER PEOPLE 12/15/2013 Office visit Adela PITTMANP 11/17/2013 Office visit Chelsea Rodríguez MANAGER PEOPLE 11/17/2013 Office visit Adela Manjit Douglas MACHINE PRECISION ETCHER 10/20/2013 Office visit Adela Cole MACHINE PRECISION ETCHER 09/22/2013 Office visit Adela Manjit Douglas MACHINE PRECISION ETCHER 08/30/2013 Office visit Chelsea Rodríguez MANAGER PEOPLE 08/26/2013 Office visit Beti MMarcus Reyna MANAGER PEOPLE 07/29/2013 Office visit Adela AlexMarcus Cole MACHINE PRECISION ETCHER 07/06/2013 [facility] Elmira Campbell MD 07/01/2013 Office visit Adela M. Douglas MACHINE PRECISION ETCHER 06/06/2013 Office visit Adela Cole MACHINE PRECISION ETCHER 05/31/2013 Office visit Chelsea Rodríguez MANAGER PEOPLE 05/11/2013 Office visit Adela Manjit Douglas MACHINE PRECISION ETCHER 03/22/2013 Office visit Adlea M. Douglas MACHINE PRECISION ETCHER 03/10/2013 Office visit Adela M. Douglas MACHINE PRECISION ETCHER 03/04/2013 Office visit Adela Manjit Douglas MACHINE PRECISION ETCHER 03/02/2013 Office visit Odette Elam MD 02/22/2013 Office visit Adela Cole MACHINE PRECISION ETCHER 01/28/2013 Office visit Chelsea Rodríguez MANAGER PEOPLE 01/25/2013 Office visit Adela Manjit Douglas MACHINE PRECISION ETCHER 12/27/2012 Office visit Adela Cole MACHINE PRECISION ETCHER 12/07/2012 [facility] Pablo Croft MD 11/24/2012 Office visit Pablo Croft MD 11/02/2012 Office visit Kylah Wright MANAGER PEOPLE 11/02/2012 Office visit Mica Lr MANAGER PEOPLE 10/05/2012 [facility] Pablo Croft MD 09/30/2012 Office visit Kylah Wright MANAGER PEOPLE 09/01/2012 Office visit Kylah Wright MANAGER PEOPLE 07/21/2012 Office visit Odette Elam MD 06/16/2012 Office visit Pablo Croft MD 05/11/2012 [facility] Pablo Croft MD 04/28/2012 Office visit Pablo Croft MD 04/20/2012 Office visit Odette Elam MD 03/29/2012 Office visit Pablo Croft MD 03/16/2012 [facility] Pablo Croft MD 03/09/2012 [facility] Pablo Croft MD 02/24/2012 [facility] Pablo Croft MD 02/11/2012 Office visit Pablo Croft MD 01/28/2012 Office visit Pablo Croft MD 01/19/2012 Office visit Odette Elam MD 12/03/2011 Office visit Reji Bowens MD 11/12/2011 Office visit Alison Antoine APRN 10/28/2011 Procedures Reji Bowens MD 10/07/2011 Office visit Odette Elam MD 09/04/2011 Surgery Reji Bowens MD 08/15/2011 Surgery Reji Bowens MD 07/22/2011 [facility] Naveen Aguilar MD 07/22/2011 [facility] Reji Bowens MD 07/14/2011 Surgery Reji Bowens MD 06/26/2011 Office visit Odette Elam MD 06/24/2011 Office visit Reji Bowens MD 12/04/2010 [facility] Asha Church MD
--- OUTSIDE RECORDS SUMMARY | 2018-02-14 14:36 | XMS REPORT ---
Author Author Chelsea Rodríguez Organization [facility] Address [address] [place], [place] [address] Care Team Providers Care Target Setter Name Role Phone Chelsea Rodríguez PCP Unavailable Allergies and Adverse Reactions Name Reaction Notes Keflex yeast infection does not want to take due to causes yeast infection Plan of Treatment Planned Activity Comments Planned Date Planned Time Plan/Goal CARDIOVASCULAR STRESS TEST 06/22/2015 12:00 AM ELECTROCARDIOGRAM COMPLETE 06/21/2015 12:00 AM MAMMOGRAM BOTH BREASTS 07/19/2015 12:00 AM METABOLIC PANEL TOTAL CA 10/12/2014 [...] then Take 1 tab x 2 days. [place] 10-325 mg oral tablet 05/03/2015 06/02/2015 take [...] and screen Returned 10/29/2011 12:00 AM CYSTOMETROGRAM W/ETHANOL OPERATOR&UP Reviewed 10/29/2011 12:00 AM ELECTRO-UROFLOWMETRY FIRST Reviewed 10/29/2011 12:00 AM INTRAABDOMINAL PRESSURE TEST Reviewed 11/12/2011 12:00 AM X-RAY URETHRA/BLADDER Reviewed 11/12/2011 12:00 AM X-RAY EXAM SI JOINTS 3/> VWS Reviewed 01/28/2012 12:00 AM MRI LUMBAR SPINE W/O DYE Returned 04/20/2012 12:00 AM THER/PROPH/DIAG INJ SC/IM Reviewed 04/20/2012 12:00 AM Depo-Medrol, Per 120 Mg [facility][NOTE 3]#7146-7868-95 Reviewed 07/21/2012 12:00 AM THER/PROPH/DIAG INJ SC/IM Reviewed 07/21/2012 12:00 AM Depo-Medrol, Per 120 Mg [facility][NOTE 3]#5887-3379-68 Reviewed 09/01/2012 12:00 AM Drug Screen (Non-Medicare) Reviewed 09/01/2012 12:00 AM Kenalog, Per 10 Mg [facility][NOTE 3]#3807-2446-93 Reviewed 11/02/2012 12:00 AM Norflex, Up to 60 Mg [facility][NOTE 3]#85477-075-28 Reviewed 11/02/2012 12:00 AM INJ TRIGGER POINT 1/2 MUSCL Reviewed 11/02/2012 12:00 AM Bupivicaine, 30 ml [facility][NOTE 3]#6077-0230-04 Reviewed 11/02/2012 12:00 AM THER/PROPH/DIAG INJ SC/IM Reviewed 11/02/2012 12:00 AM Norflex, Up to 60 Mg [facility][NOTE 3]#46011-691-50 Reviewed 12/27/2012 12:00 AM COMPLETE CBC W/AUTO DIFF WBC Returned 12/27/2012 12:00 AM COMPREHEN METABOLIC PANEL Returned 12/27/2012 12:00 AM ASSAY THYROID STIM HORMONE Returned 12/27/2012 12:00 AM VITAMIN B-12 Returned 12/27/2012 12:00 AM ASSAY OF FERRITIN Returned 12/27/2012 12:00 AM ANTINUCLEAR ANTIBODIES Reviewed 12/27/2012 12:00 AM DNA ANTIBODY [place] Reviewed 12/27/2012 12:00 AM NUCLEAR ANTIGEN ANTIBODY [...] 05/31/2013 12:00 AM Decadron, Per 1 Mg [facility][NOTE 3]# [address]-35 Reviewed 05/31/2013 12:00 AM Depo-Medrol, Per 80 Mg ND#3062-4758-62 Reviewed 05/31/2013 12:00 AM THER/PROPH/DIAG INJ SC/IM Reviewed 06/06/2013 12:00 AM MUSCLE TEST 2 LIMBS Reviewed 06/06/2013 12:00 AM Nerve conduction studies with F-wave Reviewed 08/26/2013 12:00 AM MAMMOGRAM SCREENING Returned 08/26/2013 12:00 AM MAMMOGRAM SCREENING Reviewed 08/30/2013 12:00 AM THER/PROPH/DIAG INJ SC/IM Reviewed 08/30/2013 12:00 AM Decadron, Per 1 Mg ND# [address]-51 Reviewed 08/30/2013 12:00 AM Depo-Medrol, Per 80 Mg ND#0675-3987-64 Reviewed 11/17/2013 12:00 AM THER/PROPH/DIAG INJ SC/IM Reviewed 11/17/2013 12:00 AM Decadron, Per 1 Mg [facility][NOTE 3]# [address]-74 Reviewed 11/17/2013 12:00 AM Depo-Medrol 40mg Reviewed 01/06/2014 12:00 AM THER/PROPH/DIAG INJ SC/IM Reviewed 01/06/2014 12:00 AM Decadron, Per 1 Mg [facility][NOTE 3]# [address]-68 Reviewed 01/06/2014 12:00 AM Rocephin 1 gram [facility][NOTE 3]#0806-5038-98 Reviewed 01/10/2014 12:00 AM OFFICE/OUTPATIENT VISIT EST [...] 10/12/2014 12:00 AM Decadron, Per 1 Mg [facility][NOTE 3]# [address]-86 Reviewed 10/12/2014 12:00 AM Depo-Medrol 40mg Reviewed [...] Vis Given Vis Pub CVX Influenza 03/02/2013 [employer] paste[employer] [facility] Fluzone [id number] Intramuscular Left Deltoid 03/02/2013 12/17/2012 141 Pneumococcal 02/28/2014 Merck & Co[employer] MSD Pneumovax 23 [id number] Intramuscular Left Deltoid 02/28/2014 02/27/2009 33 Influenza 03/23/2015 [employer]C Fluzone Quadrivalent [id number] Intramuscular Right Deltoid 03/23/2015 12/29/2014 140 History [...] SI joint pain Sep 01 2012 3:06PM [facility] medication use Sep 01 2012 4:05PM Wrist [...] Policy Group Number Start Date R UMR [id number] N/A [employer] [id number] N/A [employer] [place] [id number] Saturday, 2011 [employer] [place] [id number] N/A [employer] [place] [id number] Thursday, 2013 History of Encounters Visit Date [...] Adela PORTER 2014 Office visit Adela Cole INSTALLATION HELPER 2014 Office visit Mica Lr CROSSBAR FRAME WIRER 06/28/2014 Nurse visit Adela Cole INSTALLATION HELPER 05/31/2014 Office visit Adela Cole INSTALLATION HELPER 05/03/2014 Voided Adela Cole INSTALLATION HELPER 04/26/2014 Office visit Mica Lr CROSSBAR FRAME WIRER 04/05/2014 Office visit Adela Cole INSTALLATION HELPER 03/10/2014 Office visit Adela Cole INSTALLATION HELPER 02/28/2014 Office visit Mica Lr CROSSBAR FRAME WIRER 02/24/2014 Office visit Adelacatherine Cole INSTALLATION HELPER 02/06/2014 Office visit Adela Cole INSTALLATION HELPER 01/10/2014 Nurse visit Suzan Liang MD 01/06/2014 Office visit Mica NMarcus Be CROSSBAR FRAME WIRER 12/15/2013 Office visit Adela Cole INSTALLATION HELPER 11/17/2013 Office visit Chelsea Marcos CROSSBAR FRAME WIRER 11/17/2013 Office visit Adela Cole INSTALLATION HELPER 10/20/2013 Office visit Adela Cole INSTALLATION HELPER 09/22/2013 Office visit Adela Cole INSTALLATION HELPER 08/30/2013 Office visit Chelsea Rodríguez CROSSBAR FRAME WIRER 08/26/2013 Office visit Beti Reyna CROSSBAR FRAME WIRER 07/29/2013 Office visit Adela Cole INSTALLATION HELPER 07/06/2013 Procedures Elmira Campbell MD 07/01/2013 Office visit Adela Cole INSTALLATION HELPER 06/06/2013 Office visit Adela Cole INSTALLATION HELPER 05/31/2013 Office visit Chelsea Rodríguez CROSSBAR FRAME WIRER 05/11/2013 Office visit Adela Cole INSTALLATION HELPER 03/22/2013 Office visit Adela Cole INSTALLATION HELPER 03/10/2013 Office visit Adela Cole INSTALLATION HELPER 03/04/2013 Office visit Adela Cole INSTALLATION HELPER 03/02/2013 Office visit Odette Elam MD 02/22/2013 Office visit Adela Cole INSTALLATION HELPER 01/28/2013 Office visit Chelsea Rodríguez CROSSBAR FRAME WIRER 01/25/2013 Office visit Adela PITTMANP 12/27/2012 Office visit Adela Cole INSTALLATION HELPER 12/07/2012 [facility] Pablo Croft MD 11/24/2012 Office visit Pablo Croft MD 11/02/2012 Office visit Kylah Wright CROSSBAR FRAME WIRER 11/02/2012 Office visit Mica Lr CROSSBAR FRAME WIRER 10/05/2012 [facility] Pablo Croft MD 09/30/2012 Office visit Kylah Wright CROSSBAR FRAME WIRER 09/01/2012 Office visit Kylah Wright CROSSBAR FRAME WIRER 07/21/2012 Office visit Odette Elam MD 06/16/2012 [...] Bowens MD 11/12/2011 Office visit Alison Antoine CROSSBAR FRAME WIRER 10/28/2011 Procedures Reji Bowens MD 10/07/2011 Office visit Odette Elam MD 09/04/2011 Surgery Reji Bowens MD 08/15/2011 Surgery Reji Bowens MD 07/22/2011 [facility] Naveen Aguilar MD 07/22/2011 [facility] Reji Bowens MD 07/14/2011 Surgery Reji Bowens MD 06/26/2011 Office visit Odette Elam MD 06/24/2011 Office visit Reji Bowens MD 12/04/2010 [facility] Asha Church MD
--- OUTSIDE RECORDS SUMMARY | 2018-02-14 14:39 | XMS REPORT ---
Author Leonardo Garcia [facility] Address [address] [place], [place] [id number] Care Team Providers Care Ocean Import Representative Name Role Phone Leonardo Cowan PCP Allergies and Adverse Reactions Name Reaction Notes Keflex yeast infection does not want to take due to causes yeast infection Plan of Treatment Planned Activity Comments Planned Date Planned Time Plan/Goal CARDIOVASCULAR STRESS TEST 06/22/2015 12:00 AM ELECTROCARDIOGRAM COMPLETE 06/21/2015 12:00 AM X-RAY EXAM OF HAND 01/04/2016 12:00 AM CULTURE OTHR SPECIMN AEROBIC 01/04/2016 12:00 AM METABOLIC PANEL TOTAL CA 10/12/2014 [...] then Take 1 tab x 2 days. 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 History of [...] 12:00 AM Decadron, Per 1 Mg [facility]# [address]-81 Reviewed 11/27/2015 12:00 AM Depo-Medrol 40mg Reviewed [...] and screen Returned 10/29/2011 12:00 AM CYSTOMETROGRAM W/RAILROAD CAR PAINTER&UP Reviewed 10/29/2011 12:00 AM ELECTRO-UROFLOWMETRY FIRST Reviewed 10/29/2011 12:00 AM INTRAABDOMINAL PRESSURE TEST Reviewed 11/12/2011 12:00 AM X-RAY URETHRA/BLADDER Reviewed 11/12/2011 12:00 AM X-RAY EXAM SI JOINTS 3/> VWS Reviewed 01/28/2012 12:00 AM MRI LUMBAR SPINE W/O DYE Returned 04/20/2012 12:00 AM THER/PROPH/DIAG INJ SC/IM Reviewed 04/20/2012 12:00 AM Depo-Medrol, Per 120 Mg [facility]#6771-0729-87 Reviewed 07/21/2012 12:00 AM THER/PROPH/DIAG INJ SC/IM Reviewed 07/21/2012 12:00 AM Depo-Medrol, Per 120 Mg [facility]#3237-9414-00 Reviewed 09/01/2012 12:00 AM Drug Screen (Non-Medicare) Reviewed 09/01/2012 12:00 AM DRAIN/INJ JOINT/BURSA W/O US Reviewed 09/01/2012 12:00 AM Kenalog, Per 10 Mg [facility]#5825-3579-66 Reviewed 11/02/2012 12:00 AM Norflex, Up to 60 Mg [facility]#40196-871-35 Reviewed 11/02/2012 12:00 AM INJ TRIGGER POINT 1/2 MUSCL Reviewed 11/02/2012 12:00 AM Bupivicaine, 30 ml [facility]#6507-2067-06 Reviewed 11/02/2012 12:00 AM THER/PROPH/DIAG INJ SC/IM Reviewed 11/02/2012 12:00 AM Norflex, Up to 60 Mg [facility]#62870-678-67 Reviewed 12/27/2012 12:00 AM COMPLETE CBC W/AUTO DIFF WBC Returned 12/27/2012 12:00 AM COMPREHEN METABOLIC PANEL Returned 12/27/2012 12:00 AM ASSAY THYROID STIM HORMONE Returned 12/27/2012 12:00 AM VITAMIN B-12 Returned 12/27/2012 12:00 AM ASSAY OF FERRITIN Returned 12/27/2012 12:00 AM ANTINUCLEAR ANTIBODIES Reviewed 12/27/2012 12:00 AM DNA ANTIBODY LAC VIEUX Reviewed 12/27/2012 12:00 AM NUCLEAR ANTIGEN ANTIBODY [...] 12:00 AM Decadron, Per 1 Mg [facility]# [address]-05 Reviewed 05/31/2013 12:00 AM Depo-Medrol, Per 80 Mg [place]#6589-8360-11 Reviewed 05/31/2013 12:00 AM THER/PROPH/DIAG INJ SC/IM Reviewed 06/06/2013 12:00 AM MUSCLE TEST 2 LIMBS Reviewed 06/06/2013 12:00 AM Nerve conduction studies with F-wave Reviewed 08/26/2013 12:00 AM MAMMOGRAM SCREENING Returned 08/26/2013 12:00 AM MAMMOGRAM SCREENING Reviewed 08/30/2013 12:00 AM THER/PROPH/DIAG INJ SC/IM Reviewed 08/30/2013 12:00 AM Decadron, Per 1 Mg [facility]# [address]-02 Reviewed 08/30/2013 12:00 AM Depo-Medrol, Per 80 Mg [facility]#0708-2568-76 Reviewed 11/17/2013 12:00 AM THER/PROPH/DIAG INJ SC/IM Reviewed 11/17/2013 12:00 AM Decadron, Per 1 Mg [facility]# [address]-94 Reviewed 11/17/2013 12:00 AM Depo-Medrol 40mg Reviewed 01/06/2014 12:00 AM THER/PROPH/DIAG INJ SC/IM Reviewed 01/06/2014 12:00 AM Decadron, Per 1 Mg [facility]# [address]-75 Reviewed 01/06/2014 12:00 AM Rocephin 1 gram [facility]#0935-3279-85 Reviewed 01/10/2014 12:00 AM OFFICE/OUTPATIENT VISIT EST [...] 12:00 AM Decadron, Per 1 Mg [facility]# [address]-97 Reviewed 10/12/2014 12:00 AM Depo-Medrol 40mg Reviewed [...] CVX Influenza 03/02/2013 sanofi pasteur PMC Fluzone [id number] Intramuscular Left Deltoid 03/02/2013 12/17/2012 141 X 02/28/2014 [employer] MSD Pneumovax 23 [id number] Intramuscular Left Deltoid 02/28/2014 02/27/2009 33 Influenza 03/23/2015 sanofi pasteur PMC Fluzone Quadrivalent [id number] Intramuscular Right Deltoid 03/23/2015 12/29/2014 140 History [...] Cellulitis of hand Jan 04 2016 2:41PM Payers Insurance Name Company Name Plan Name Plan Number Policy Number Policy Group Number Start Date [employer] [place] [id number] N/A [employer] [place] [id number] Saturday, 2011 [employer] [place] [id number] N/A [employer] [place] [id number] Thursday, 2013 [facility] [id number] N/A [facility] [employer] [facility] [id number] N/A History of Encounters Visit Date Visit Type Provider 01/04/2016 Office visit Leonardo Cowan APRN 11/27/2015 [...] visit Adela PORTER 12/28/2014 Office visit Chelsea Rodrígeuz APRN 12/14/2014 Nurse visit Adela PORTER 11/23/2014 Nurse visit Adela PORTER 10/26/2014 Office visit Adela PORTER 10/12/2014 Office visit 10/12/2014 Office visit Chelsea Rodríguez RENT AND HOUSING INVESTIGATOR 10/05/2014 Nurse visit Adela Cole FOOD MIXER ASSEMBLER 09/07/2014 Office visit Adela Cole FOOD MIXER ASSEMBLER 08/17/2014 Office visit 08/17/2014 Office visit 08/17/2014 Office visit Chelsea Rodríguez RENT AND HOUSING INVESTIGATOR 08/14/2014 Office visit Adela Cole FOOD MIXER ASSEMBLER 07/27/2014 Office visit Adela PITTMANP 2014 Office visit Adela PITTMANP 2014 Office visit Mica Lr RENT AND HOUSING INVESTIGATOR 06/28/2014 Nurse visit Adela Cole FOOD MIXER ASSEMBLER 05/31/2014 Office visit Adela Cole FOOD MIXER ASSEMBLER 05/03/2014 Voided Adela Cole FOOD MIXER ASSEMBLER 04/26/2014 Office visit Mica Lr RENT AND HOUSING INVESTIGATOR 04/05/2014 Office visit Adela PITTMANP 03/10/2014 Office visit Adela PITTMANP 02/28/2014 Office visit Mica Lr RENT AND HOUSING INVESTIGATOR 02/24/2014 Office visit Adela PITTMANP 02/06/2014 Office visit Adela PITTMANP 01/10/2014 Nurse visit Suzan Liang MD 01/06/2014 Office visit Mica Lr RENT AND HOUSING INVESTIGATOR 12/15/2013 Office visit Adela PITTMANP 11/17/2013 Office visit Chelsea Rodríguez RENT AND HOUSING INVESTIGATOR 11/17/2013 Office visit Adela PITTMANP 10/20/2013 Office visit Adela PITTMANP 09/22/2013 Office visit Adela PITTMANP 08/30/2013 Office visit Chelsea Rodríguez RENT AND HOUSING INVESTIGATOR 08/26/2013 Office visit Beti Reyna RENT AND HOUSING INVESTIGATOR 07/29/2013 Office visit Adela PITTMANP 07/06/2013 Procedures Elmira Campbell MD 07/01/2013 Office visit Adela PITTMANP 06/06/2013 Office visit Adela PITTMANP 05/31/2013 Office visit Chelsea Rodríguez RENT AND HOUSING INVESTIGATOR 05/11/2013 Office visit Adela PITTMANP 03/22/2013 Office visit Adela PITTMANP 03/10/2013 Office visit Adela PITTMANP 03/04/2013 Office visit Adela PITTMANP 03/02/2013 Office visit Odette Elam MD 02/22/2013 Office visit Adela M. 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 12/07/2012 [facility] Pablo Croft MD 11/24/2012 Office visit Pablo Croft MD 11/02/2012 Office visit Kylah Wright RENT AND HOUSING INVESTIGATOR 11/02/2012 Office visit Mica Lr RENT AND HOUSING INVESTIGATOR 10/05/2012 [facility] Pablo Croft MD 09/30/2012 Office visit Kylah Wright RENT AND HOUSING INVESTIGATOR 09/01/2012 Office visit Kylah Wright RENT AND HOUSING INVESTIGATOR 07/21/2012 Office visit Odette Elam MD 06/16/2012 [...] Bowens MD 11/12/2011 Office visit Alison Antoine RENT AND HOUSING INVESTIGATOR 10/28/2011 Procedures Reji Bowens MD 10/07/2011 Office [...]
--- OUTSIDE RECORDS SUMMARY | 2018-02-14 14:42 | XMS REPORT ---
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# [address]-04 Reviewed 11/27/2015 12:00 AM Depo-Medrol 40mg Reviewed [...] Toradol [address] [facility]#0723-7597-28 Reviewed 06/11/2016 12:00 AM Consult/Referral Reviewed 06/11/2016 2:41 PM URINALYSIS AUTO W/O SCOPE Reviewed 06/11/2016 12:00 AM URINE CULTURE/COLONY COUNT Reviewed 06/13/2016 12:00 AM Splint, prefabricated, wrist or ankle Reviewed 07/31/2016 12:00 AM LIPID PANEL Reviewed 07/31/2016 12:00 AM MAMMOGRAPHY SCREENING, DIGITAL Reviewed 10/29/2011 12:00 AM CYSTOMETROGRAM W/STOCK GRADER&UP Reviewed 10/29/2011 12:00 AM ELECTRO-UROFLOWMETRY FIRST Reviewed 10/29/2011 12:00 AM INTRAABDOMINAL PRESSURE TEST Reviewed 11/12/2011 12:00 AM X-RAY URETHRA/BLADDER Reviewed 11/12/2011 12:00 AM X-RAY EXAM SI JOINTS 3/> VWS Reviewed 01/28/2012 12:00 AM MRI LUMBAR SPINE W/O DYE Reviewed 04/20/2012 12:00 AM THER/PROPH/DIAG INJ SC/IM Reviewed 04/20/2012 12:00 AM Depo-Medrol, Per [address] [facility]#2300-8848-49 Reviewed 07/21/2012 12:00 AM THER/PROPH/DIAG INJ SC/IM Reviewed 07/21/2012 12:00 AM Depo-Medrol, Per [address] [facility]#8439-2870-07 Reviewed 09/01/2012 12:00 AM Drug Screen (Non-Medicare) Reviewed 09/01/2012 12:00 AM DRAIN/INJ JOINT/BURSA W/O US Reviewed 09/01/2012 12:00 AM Kenalog, Per [address] [facility]#8785-2870-13 Reviewed 11/02/2012 12:00 AM Norflex, Up to [address] [facility]#36963-387-85 Reviewed 11/02/2012 12:00 AM INJ TRIGGER POINT 1/2 MUSCL Reviewed 11/02/2012 12:00 AM Bupivicaine, [address] [facility]#9449-5101-77 Reviewed 11/02/2012 12:00 AM THER/PROPH/DIAG INJ SC/IM Reviewed 11/02/2012 12:00 AM Norflex, Up to [address] [facility]#22322-446-78 Reviewed 12/27/2012 12:00 AM COMPLETE CBC W/AUTO DIFF WBC Reviewed 12/27/2012 12:00 AM COMPREHEN METABOLIC PANEL Reviewed 12/27/2012 12:00 AM ASSAY THYROID STIM HORMONE Reviewed 12/27/2012 12:00 AM VITAMIN B-12 Reviewed 12/27/2012 12:00 AM ASSAY OF FERRITIN Reviewed 12/27/2012 12:00 AM ANTINUCLEAR ANTIBODIES Reviewed 12/27/2012 12:00 AM DNA ANTIBODY [place] Reviewed 12/27/2012 12:00 AM NUCLEAR ANTIGEN ANTIBODY [...] 12:00 AM Decadron, Per 1 Mg [place]# [address]-20 Reviewed 05/31/2013 12:00 AM Depo-Medrol, Per 80 Mg [facility]#6028-4743-97 Reviewed 05/31/2013 12:00 AM THER/PROPH/DIAG INJ SC/IM Reviewed 06/06/2013 12:00 AM MUSCLE TEST 2 LIMBS Reviewed 06/06/2013 12:00 AM Nerve conduction studies with F-wave Reviewed 08/26/2013 12:00 AM MAMMOGRAM SCREENING Reviewed 08/26/2013 12:00 AM MAMMOGRAM SCREENING Reviewed 08/30/2013 12:00 AM THER/PROPH/DIAG INJ SC/IM Reviewed 08/30/2013 12:00 AM Decadron, Per 1 Mg ND# [address]-24 Reviewed 08/30/2013 12:00 AM Depo-Medrol, Per 80 Mg [facility]#5781-6596-40 Reviewed 11/17/2013 12:00 AM THER/PROPH/DIAG INJ SC/IM Reviewed 11/17/2013 12:00 AM Decadron, Per [address] [facility]# [address]-51 Reviewed 11/17/2013 12:00 AM Depo-Medrol 40mg Reviewed 01/06/2014 12:00 AM THER/PROPH/DIAG INJ SC/IM Reviewed 01/06/2014 12:00 AM Decadron, Per [address] [facility]# [address]-73 Reviewed 01/06/2014 12:00 AM Rocephin 1 gram ND#3729-7307-86 Reviewed 01/10/2014 12:00 AM OFFICE/OUTPATIENT VISIT EST [...] [address] [facility]# [address]-04 Reviewed 10/12/2014 12:00 AM Depo-Medrol 40mg Reviewed [...] CVX Influenza 03/02/2013 sanofi pasteur PMC Fluzone [id number] Intramuscular Left Deltoid 03/02/2013 12/17/2012 141 X 02/28/2014 [employer] MSD Pneumovax 23 [id number] Intramuscular Left Deltoid 02/28/2014 02/27/2009 33 Influenza 03/23/2015 sanofi pasteur PMC Fluzone Quadrivalent [id number] Intramuscular Right Deltoid 03/23/2015 12/29/2014 140 Influenza [...] Start Date [employer] [place] [id number] N/A [employer] [place] [id number] Saturday, 2011 [employer] [place] [id number] N/A [employer] [place] [id number] Thursday, 2013 [facility] [id number] N/A [facility] [employer] [facility] [id number] N/A [employer] [place] [id number] N/A [facility] [id number] N/A [employer] [id number] N/A [facility] [employer] [id number] DOI [id number] May [employer] [facility] [id number] N/A History of Encounters Visit Date Visit Type Provider 11/20/2016 Office visit Chelsea Rodríguez DIETARY SERVER 08/29/2016 Office visit Chelsea Rodríguez DIETARY SERVER 07/31/2016 Office visit Chelsea Marcos DIETARY SERVER 06/11/2016 Office visit Chelsea Marcos DIETARY SERVER 06/05/2016 Office visit Leonardo Cowan DIETARY SERVER 05/14/2016 Office visit Chelsea Walker DIETARY SERVER 05/05/2016 Office visit Leonardo Cowan DIETARY SERVER 04/24/2016 Office visit Chelsea Walker DIETARY SERVER 04/07/2016 Office visit Chelsea Walker DIETARY SERVER 03/04/2016 Office visit Chelsea Walker DIETARY SERVER 01/14/2016 Office visit Chelsea Walker DIETARY SERVER 01/09/2016 Office visit Leonardo Cowan DIETARY SERVER 01/04/2016 Office visit Leonardo Cowan DIETARY SERVER 11/27/2015 Office visit Chelsea Rodríguez DIETARY SERVER 08/23/2015 Office visit Chelsea Rodríguez DIETARY SERVER 07/19/2015 Office visit 07/19/2015 Office visit Chelsea Rodríguez DIETARY SERVER 06/21/2015 Office visit Chelsea Rodríguez DIETARY SERVER 05/03/2015 Nurse visit Adela PORTER 04/12/2015 Office visit Adela PORTER 03/23/2015 Office visit Chelsea Rodríguez DIETARY SERVER 03/08/2015 Office visit Adela PORTER 02/14/2015 Office visit Leonardo Cowan DIETARY SERVER 02/08/2015 Office visit Adela PORTER 02/07/2015 Office visit Leonardo Cowan DIETARY SERVER 01/11/2015 Office visit Adela PORTER 12/28/2014 Office visit Chelsea Rodríguez DIETARY SERVER 12/14/2014 Nurse visit Adela PORTER 11/23/2014 Nurse visit Adela PORTER 10/26/2014 Office visit Adela PORTER 10/12/2014 Office visit 10/12/2014 Office visit Chelsea Rodríguez DIETARY SERVER 10/05/2014 Nurse visit Adela PORTER 09/07/2014 Office visit Adela PORTER 08/17/2014 Office visit 08/17/2014 Office visit 08/17/2014 Office visit Chelsea Rodríguez DIETARY SERVER 08/14/2014 Office visit Adela PORTER 07/27/2014 Office visit Adela PORTER 2014 Office visit Adela PORTER 2014 Office visit Mica Kareem Lr DIETARY SERVER 06/28/2014 Nurse visit Adela Cole SECURITY MONITOR 05/31/2014 Office visit Adela Cole SECURITY MONITOR 05/03/2014 Voided Adela Saravia Douglas SECURITY MONITOR 04/26/2014 Office visit Mica AgarwalMarcus Lr DIETARY SERVER 04/05/2014 Office visit Adela JohnsonMarcus Douglas SECURITY MONITOR 03/10/2014 Office visit Adela Cole SECURITY MONITOR 02/28/2014 Office visit Micawillian Lr DIETARY SERVER 02/24/2014 Office visit Adelacatherine Cole SECURITY MONITOR 02/06/2014 Office visit Adela Manjit Douglas SECURITY MONITOR 01/10/2014 Nurse visit Suzan Liang MD 01/06/2014 Office visit Micawillian Lr DIETARY SERVER 12/15/2013 Office visit Adela JohnsonMarcus Douglas SECURITY MONITOR 11/17/2013 Office visit Chelsea Marcos DIETARY SERVER 11/17/2013 Office visit Adela Cole SECURITY MONITOR 10/20/2013 Office visit Adela Cole SECURITY MONITOR 09/22/2013 Office visit Adela Cole SECURITY MONITOR 08/30/2013 Office visit Chelsea Rodríguez DIETARY SERVER 08/26/2013 Office visit Beti Reyna DIETARY SERVER 07/29/2013 Office visit Adela Cole SECURITY MONITOR 07/06/2013 Procedures Elmira Campbell MD 07/01/2013 Office visit Adela Cole SECURITY MONITOR 06/06/2013 Office visit Adela Cole SECURITY MONITOR 05/31/2013 Office visit Chelsea Rodríguez DIETARY SERVER 05/11/2013 Office visit Adela Cole SECURITY MONITOR 03/22/2013 Office visit Adela Cole SECURITY MONITOR 03/10/2013 Office visit Adela Cole SECURITY MONITOR 03/04/2013 Office visit Adela Cole SECURITY MONITOR 03/02/2013 Office visit Odette Elam MD 02/22/2013 Office visit Adela Cole SECURITY MONITOR 01/28/2013 Office visit Chelsea Rodríguez DIETARY SERVER 01/25/2013 Office visit Adela Cole SECURITY MONITOR 12/27/2012 Office visit Adela PITTMANP 12/07/2012 [facility] Pablo Croft MD 11/24/2012 Office visit Pablo Croft MD 11/02/2012 Office visit Kylah Wright DIETARY SERVER 11/02/2012 Office visit Mica Serna Be DIETARY SERVER 10/05/2012 [facility] Pablo Croft MD 09/30/2012 Office visit Kylah Wright DIETARY SERVER 09/01/2012 Office visit Kylah Wright DIETARY SERVER 07/21/2012 Office visit Odette Elam MD 06/16/2012 [...] Bowens MD 11/12/2011 Office visit Alison Antoine DIETARY SERVER 10/28/2011 Procedures Reji Bowens MD 10/07/2011 Office [...]
--- OUTSIDE RECORDS SUMMARY | 2018-02-14 14:45 | XMS REPORT ---
Author Author Chelsea Rodríguez Organization [facility] Address [address] [place], [place] [id number] Care Team Providers Care Curber Name Role Phone Chelsea Rodríguez PCP Chlesea Rodríguez PreferredProvider Allergies and Adverse Reactions Name [...] route every 6 hours for 30 days [facility] 300 mg [phone] 600 [...] then Take 1 tab x 2 days. 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 [...] Per 1 Mg [facility]# [address]-42 Reviewed 11/27/2015 12:00 AM Depo-Medrol 40mg Reviewed [...] Toradol 60 Mg [facility]#7087-0685-14 Reviewed 06/11/2016 12:00 AM Consult/Referral Reviewed 06/11/2016 2:41 PM URINALYSIS AUTO W/O SCOPE Reviewed 06/11/2016 12:00 AM URINE CULTURE/COLONY COUNT Reviewed 06/13/2016 12:00 AM Splint, prefabricated, wrist or ankle Reviewed 07/31/2016 12:00 AM LIPID PANEL Reviewed 07/31/2016 12:00 AM MAMMOGRAPHY SCREENING, DIGITAL Reviewed 10/29/2011 12:00 AM CYSTOMETROGRAM W/SECURITY GUARD DISPATCHER&UP Reviewed 10/29/2011 12:00 AM ELECTRO-UROFLOWMETRY FIRST [...] Per 120 Mg [facility]#9954-0417-94 Reviewed 2017 12:00 AM COMPLETE CBC W/AUTO DIFF WBC Returned 2017 12:00 AM COMPREHEN METABOLIC PANEL Returned 2017 12:00 AM LIPID PANEL Returned 2017 12:00 AM ASSAY THYROID STIM HORMONE Returned 07/21/2012 12:00 AM THER/PROPH/DIAG INJ SC/IM Reviewed 07/21/2012 12:00 AM Depo-Medrol, Per 120 Mg [facility]#0988-1397-16 Reviewed 09/01/2012 12:00 AM Drug Screen (Non-Medicare) Reviewed 09/01/2012 12:00 AM DRAIN/INJ JOINT/BURSA W/O US Reviewed 09/01/2012 12:00 AM Kenalog, Per 10 Mg [facility]#0559-1621-51 Reviewed 11/02/2012 12:00 AM Norflex, Up to 60 Mg [facility]#07938-158-32 Reviewed 11/02/2012 12:00 AM INJ TRIGGER POINT 1/2 MUSCL Reviewed 11/02/2012 12:00 AM Bupivicaine, 30 ml [facility]#7265-2606-01 Reviewed 11/02/2012 12:00 AM THER/PROPH/DIAG INJ SC/IM Reviewed 11/02/2012 12:00 AM Norflex, Up to 60 Mg [facility]#83697-046-49 Reviewed 12/27/2012 12:00 AM COMPLETE CBC W/AUTO [...] 12:00 AM Decadron, Per 1 Mg ND# [address]-67 Reviewed 05/31/2013 12:00 AM Depo-Medrol, Per 80 Mg ND#6785-0332-76 Reviewed 05/31/2013 12:00 AM THER/PROPH/DIAG INJ SC/IM Reviewed 06/06/2013 12:00 AM MUSCLE TEST 2 LIMBS Reviewed 06/06/2013 12:00 AM Nerve conduction studies with F-wave Reviewed 08/26/2013 12:00 AM MAMMOGRAM SCREENING Reviewed 08/26/2013 12:00 AM MAMMOGRAM SCREENING Reviewed 08/30/2013 12:00 AM THER/PROPH/DIAG INJ SC/IM Reviewed 08/30/2013 12:00 AM Decadron, Per 1 Mg ND# [address]-79 Reviewed 08/30/2013 12:00 AM Depo-Medrol, Per 80 Mg [facility]#3989-4043-09 Reviewed 11/17/2013 12:00 AM THER/PROPH/DIAG INJ SC/IM Reviewed 11/17/2013 12:00 AM Decadron, Per 1 Mg [facility]# [address]-59 Reviewed 11/17/2013 12:00 AM Depo-Medrol 40mg Reviewed 01/06/2014 12:00 AM THER/PROPH/DIAG INJ SC/IM Reviewed 01/06/2014 12:00 AM Decadron, Per 1 Mg [facility]# [address]-72 Reviewed 01/06/2014 12:00 AM Rocephin 1 gram [facility]#4344-8350-76 Reviewed 01/10/2014 12:00 AM OFFICE/OUTPATIENT VISIT EST [...] Per 1 Mg [facility]# [address]-55 Reviewed 10/12/2014 12:00 AM Depo-Medrol 40mg Reviewed [...] CVX Influenza 03/02/2013 sanofi pasteur PMC Fluzone [id number] Intramuscular Left Deltoid 03/02/2013 12/17/2012 141 X 02/28/2014 Merck & Co., Inc. 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 Sep 01 2012 4:05PM [...] Number Start Date [employer] [place] [id number] N/A [employer] [place] [id number] Saturday, 2011 [employer] [place] [id number] N/A [employer] [place] [id number] Thursday, 2013 [facility] UMR [id number] N/A [employer] Braums [id number] N/A [employer] [place] [id number] N/A [facility] [id number] N/A [facility] [employer] [id number] N/A [facility] [id number] DOI [id number] [facility] [id number] N/A History of Encounters Visit Date Visit Type Provider 2017 Office visit Chelsea Rodríguez SOLUTION MAKE UP OPERATOR 05/22/2017 Office visit Chelsea Marcos SOLUTION MAKE UP OPERATOR 02/20/2017 Office visit Chelsea Walker SOLUTION MAKE UP OPERATOR 02/10/2017 Office visit Jeremy West 01/31/2017 Office visit Dimitri Beebe LEAD FURNACE OPERATOR 11/20/2016 Office visit Chelsea Marcos SOLUTION MAKE UP OPERATOR 08/29/2016 Office visit Chelsea Walker SOLUTION MAKE UP OPERATOR 07/31/2016 Office visit Chelsea Walker SOLUTION MAKE UP OPERATOR 06/11/2016 Office visit Chelsea Walker SOLUTION MAKE UP OPERATOR 06/05/2016 Office visit Leonardo Cowan SOLUTION MAKE UP OPERATOR 05/14/2016 Office visit Chelsea Marcos SOLUTION MAKE UP OPERATOR 05/05/2016 Office visit Leonardo Pazran SOLUTION MAKE UP OPERATOR 04/24/2016 Office visit Chelsea Marcos SOLUTION MAKE UP OPERATOR 04/07/2016 Office visit Chelsea Rodríguez SOLUTION MAKE UP OPERATOR 03/04/2016 Office visit Chelsea Rodríguez SOLUTION MAKE UP OPERATOR 01/14/2016 Office visit Chelsea Rodríguez SOLUTION MAKE UP OPERATOR 01/09/2016 Office visit Leonardo Cowan SOLUTION MAKE UP OPERATOR 01/04/2016 Office visit Leonardo Cowan SOLUTION MAKE UP OPERATOR 11/27/2015 Office visit Chelsea Rodríguez SOLUTION MAKE UP OPERATOR 08/23/2015 Office visit Chelsea Rodríguez SOLUTION MAKE UP OPERATOR 07/19/2015 Office visit 07/19/2015 Office visit Chelsea Rodríguez SOLUTION MAKE UP OPERATOR 06/21/2015 Office visit Chelsea Marcos SOLUTION MAKE UP OPERATOR 05/03/2015 Nurse visit Adela PORTER 04/12/2015 Office visit Adela Cole WOVEN PAPER HAT MENDER 03/23/2015 Office visit Chelsea Marcos SOLUTION MAKE UP OPERATOR 03/08/2015 Office visit Adela Cole WOVEN PAPER HAT MENDER 02/14/2015 Office visit Leonardo Cowan SOLUTION MAKE UP OPERATOR 02/08/2015 Office visit Adela PITTMANP 02/07/2015 Office visit Leonardo Cowan SOLUTION MAKE UP OPERATOR 01/11/2015 Office visit Adela Cole WOVEN PAPER HAT MENDER 12/28/2014 Office visit Chelsea Rodríguez SOLUTION MAKE UP OPERATOR 12/14/2014 Nurse visit Adela PITTMANP 11/23/2014 Nurse visit Adela PITTMANP 10/26/2014 Office visit Adela PITTMANP 10/12/2014 Office visit 10/12/2014 Office visit Chelsea Rodríguez SOLUTION MAKE UP OPERATOR 10/05/2014 Nurse visit Adela PITTMANP 09/07/2014 Office visit Adela PITTMANP 08/17/2014 Office visit 08/17/2014 Office visit 08/17/2014 Office visit Chelsea Rodríguez SOLUTION MAKE UP OPERATOR 08/14/2014 Office visit Adela Cole WOVEN PAPER HAT MENDER 07/27/2014 Office visit Adela Cole WOVEN PAPER HAT MENDER 2014 Office visit Adela Cole WOVEN PAPER HAT MENDER 2014 Office visit Micawillian Lr SOLUTION MAKE UP OPERATOR 06/28/2014 Nurse visit Adela Cole WOVEN PAPER HAT MENDER 05/31/2014 Office visit Adela Cole WOVEN PAPER HAT MENDER 05/03/2014 Voided Adela Cole WOVEN PAPER HAT MENDER 04/26/2014 Office visit Mica Kareem Be SOLUTION MAKE UP OPERATOR 04/05/2014 Office visit Adela Cole WOVEN PAPER HAT MENDER 03/10/2014 Office visit Adela Cole WOVEN PAPER HAT MENDER 02/28/2014 Office visit Mica Kareem Lr SOLUTION MAKE UP OPERATOR 02/24/2014 Office visit Adela Cole WOVEN PAPER HAT MENDER 02/06/2014 Office visit Adela Cole WOVEN PAPER HAT MENDER 01/10/2014 Nurse visit Suzan Liang MD 01/06/2014 Office visit Micawillian Lr SOLUTION MAKE UP OPERATOR 12/15/2013 Office visit Adela Cole WOVEN PAPER HAT MENDER 11/17/2013 Office visit Chelsea Rodríguez SOLUTION MAKE UP OPERATOR 11/17/2013 Office visit Adela Cole WOVEN PAPER HAT MENDER 10/20/2013 Office visit Adela Cole WOVEN PAPER HAT MENDER 09/22/2013 Office visit Adela PITTMANP 08/30/2013 Office visit Chelsea Rodríguez SOLUTION MAKE UP OPERATOR 08/26/2013 Office visit Beti Reyna SOLUTION MAKE UP OPERATOR 07/29/2013 Office visit Adela Cole WOVEN PAPER HAT MENDER 07/06/2013 Procedures Elmira Campbell MD 07/01/2013 Office visit Adela Cole WOVEN PAPER HAT MENDER 06/06/2013 Office visit Adela Cole WOVEN PAPER HAT MENDER 05/31/2013 Office visit Chelsea Rodríguez SOLUTION MAKE UP OPERATOR 05/11/2013 Office visit Adela Cole WOVEN PAPER HAT MENDER 03/22/2013 Office visit Adela Cole WOVEN PAPER HAT MENDER 03/10/2013 Office visit Adela PITTMANP 03/04/2013 Office visit Adela PITTMANP 03/02/2013 Office visit Odette Ealm MD 02/22/2013 Office visit Adela PITTMANP 01/28/2013 Office visit Chelsea Rodríguez SOLUTION MAKE UP OPERATOR 01/25/2013 Office visit Adela PITTMANP 12/27/2012 Office visit Adela PORTER 12/07/2012 [facility] Pablo Croft MD 11/24/2012 Office visit Pablo Croft MD 11/02/2012 Office visit Kylah Wright SOLUTION MAKE UP OPERATOR 11/02/2012 Office visit Mica Lr SOLUTION MAKE UP OPERATOR 10/05/2012 [facility] Pablo Croft MD 09/30/2012 Office visit Kylah Wright SOLUTION MAKE UP OPERATOR 09/01/2012 Office visit Kylah Wright SOLUTION MAKE UP OPERATOR 07/21/2012 Office visit Odette Elam MD [...] Bowens MD 11/12/2011 Office visit Alison Antoine SOLUTION MAKE UP OPERATOR 10/28/2011 Procedures Reji Bowens MD 10/07/2011 [...]
--- OUTSIDE RECORDS SUMMARY | 2018-02-14 14:48 | XMS REPORT ---
Author Author Chelsea Rodríguez Organization [facility] Address [address] [place], [place] [address] Care Team Providers Care Account Manager Education Name Role Phone Chelsea Rodríguez PCP Unavailable [...] then Take 1 tab x 2 days. 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 [...] and screen Returned 10/29/2011 12:00 AM CYSTOMETROGRAM W/BAR EXAMINER&UP Reviewed 10/29/2011 12:00 AM ELECTRO-UROFLOWMETRY FIRST Reviewed 10/29/2011 12:00 AM INTRAABDOMINAL PRESSURE TEST Reviewed 11/12/2011 12:00 AM X-RAY URETHRA/BLADDER Reviewed 11/12/2011 12:00 AM X-RAY EXAM SI JOINTS 3/> VWS Reviewed 01/28/2012 12:00 AM MRI LUMBAR SPINE W/O DYE Returned 04/20/2012 12:00 AM THER/PROPH/DIAG INJ SC/IM Reviewed 04/20/2012 12:00 AM Depo-Medrol, Per 120 Mg [facility]#5084-0078-47 Reviewed 07/21/2012 12:00 AM THER/PROPH/DIAG INJ SC/IM Reviewed 07/21/2012 12:00 AM Depo-Medrol, Per 120 Mg [facility]#9132-9458-17 Reviewed 09/01/2012 12:00 AM Drug Screen (Non-Medicare) Reviewed 09/01/2012 12:00 AM Kenalog, Per 10 Mg [facility]#4964-8965-47 Reviewed 11/02/2012 12:00 AM Norflex, Up to 60 Mg [facility]#11881-264-32 Reviewed 11/02/2012 12:00 AM INJ TRIGGER POINT 1/2 MUSCL Reviewed 11/02/2012 12:00 AM Bupivicaine, 30 ml [facility]#9502-7848-55 Reviewed 11/02/2012 12:00 AM THER/PROPH/DIAG INJ SC/IM Reviewed 11/02/2012 12:00 AM Norflex, Up to 60 Mg [facility]#64315-619-13 Reviewed 12/27/2012 12:00 AM COMPLETE CBC W/AUTO DIFF WBC Returned 12/27/2012 12:00 AM COMPREHEN METABOLIC PANEL Returned 12/27/2012 12:00 AM ASSAY THYROID STIM HORMONE Returned 12/27/2012 12:00 AM VITAMIN B-12 Returned 12/27/2012 12:00 AM ASSAY OF FERRITIN Returned 12/27/2012 12:00 AM ANTINUCLEAR ANTIBODIES Reviewed 12/27/2012 12:00 AM DNA ANTIBODY [place] Reviewed 12/27/2012 12:00 AM NUCLEAR ANTIGEN ANTIBODY [...] 12:00 AM Decadron, Per 1 Mg ND# [address]-65 Reviewed 05/31/2013 12:00 AM Depo-Medrol, Per 80 Mg ND#1305-2585-04 Reviewed 05/31/2013 12:00 AM THER/PROPH/DIAG INJ SC/IM Reviewed 06/06/2013 12:00 AM MUSCLE TEST 2 LIMBS Reviewed 06/06/2013 12:00 AM Nerve conduction studies with F-wave Reviewed 08/26/2013 12:00 AM MAMMOGRAM SCREENING Returned 08/26/2013 12:00 AM MAMMOGRAM SCREENING Reviewed 08/30/2013 12:00 AM THER/PROPH/DIAG INJ SC/IM Reviewed 08/30/2013 12:00 AM Decadron, Per 1 Mg ND# [address]-69 Reviewed 08/30/2013 12:00 AM Depo-Medrol, Per 80 Mg [place]#8786-2156-97 Reviewed 11/17/2013 12:00 AM THER/PROPH/DIAG INJ SC/IM Reviewed 11/17/2013 12:00 AM Decadron, Per 1 Mg ND# [address]-73 Reviewed 11/17/2013 12:00 AM Depo-Medrol 40mg Reviewed 01/06/2014 12:00 AM THER/PROPH/DIAG INJ SC/IM Reviewed 01/06/2014 12:00 AM Decadron, Per 1 Mg ND# [address]-54 Reviewed 01/06/2014 12:00 AM Rocephin 1 gram [facility]#9430-7807-58 Reviewed 01/10/2014 12:00 AM OFFICE/OUTPATIENT VISIT EST [...] 10/12/2014 12:00 AM Decadron, Per 1 Mg [facility]# [address]-61 Reviewed 10/12/2014 12:00 AM Depo-Medrol 40mg Reviewed [...] CVX Influenza 03/02/2013 sanofi pasteur PMC Fluzone [id number] Intramuscular Left Deltoid 03/02/2013 12/17/2012 141 Pneumococcal 02/28/2014 Merck & Co., Inc. 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 01 2012 4:05PM [...] Policy Group Number Start Date R UMR [id number] N/A [employer] [id number] N/A [employer] [place] [id number] Saturday, 2011 [employer] [place] [id number] N/A [employer] [place] [id number] Thursday, 2013 History of Encounters Visit Date [...] Adela PORTER 2014 Office visit Adela Cole SENIOR FINANCIAL REPORTING ACCOUNTANT 2014 Office visit Mica Lr DRUM PLATER 06/28/2014 Nurse visit Adela AlexMarcus Cole SENIOR FINANCIAL REPORTING ACCOUNTANT 05/31/2014 Office visit Adela Manjit Douglas SENIOR FINANCIAL REPORTING ACCOUNTANT 05/03/2014 Voided Adela Cole SENIOR FINANCIAL REPORTING ACCOUNTANT 04/26/2014 Office visit Mica Lr DRUM PLATER 04/05/2014 Office visit Adela Cole SENIOR FINANCIAL REPORTING ACCOUNTANT 03/10/2014 Office visit Adela Manjit Douglas SENIOR FINANCIAL REPORTING ACCOUNTANT 02/28/2014 Office visit Mica Lr DRUM PLATER 02/24/2014 Office visit Adela Cole SENIOR FINANCIAL REPORTING ACCOUNTANT 02/06/2014 Office visit Adela JohnsonMarcus Douglas SENIOR FINANCIAL REPORTING ACCOUNTANT 01/10/2014 Nurse visit Suzan Liang MD 01/06/2014 Office visit Mica NMarcus Be DRUM PLATER 12/15/2013 Office visit Adela MMarcus Cole SENIOR FINANCIAL REPORTING ACCOUNTANT 11/17/2013 Office visit Chelsea Rodríguez DRUM PLATER 11/17/2013 Office visit Adela Cole SENIOR FINANCIAL REPORTING ACCOUNTANT 10/20/2013 Office visit Adela Cole SENIOR FINANCIAL REPORTING ACCOUNTANT 09/22/2013 Office visit Adela Cole SENIOR FINANCIAL REPORTING ACCOUNTANT 08/30/2013 Office visit Chelsea Rodríguez DRUM PLATER 08/26/2013 Office visit Beti Reyna DRUM PLATER 07/29/2013 Office visit Adela Cole SENIOR FINANCIAL REPORTING ACCOUNTANT 07/06/2013 Procedures Elmira Campbell MD 07/01/2013 Office visit Adela Cole SENIOR FINANCIAL REPORTING ACCOUNTANT 06/06/2013 Office visit Adela Cole SENIOR FINANCIAL REPORTING ACCOUNTANT 05/31/2013 Office visit Chelsea Rodríguez DRUM PLATER 05/11/2013 Office visit Adela Cole SENIOR FINANCIAL REPORTING ACCOUNTANT 03/22/2013 Office visit Adela Cole SENIOR FINANCIAL REPORTING ACCOUNTANT 03/10/2013 Office visit Adela Cole SENIOR FINANCIAL REPORTING ACCOUNTANT 03/04/2013 Office visit Adela Cole SENIOR FINANCIAL REPORTING ACCOUNTANT 03/02/2013 Office visit Odette Elam MD 02/22/2013 Office visit Adela Cole SENIOR FINANCIAL REPORTING ACCOUNTANT 01/28/2013 Office visit Chelsea Rodríguez DRUM PLATER 01/25/2013 Office visit Adela Cole SENIOR FINANCIAL REPORTING ACCOUNTANT 12/27/2012 Office visit Adela Cole SENIOR FINANCIAL REPORTING ACCOUNTANT 12/07/2012 [facility] Pablo Croft MD 11/24/2012 Office visit Pablo Croft MD 11/02/2012 Office visit Kylah Wright DRUM PLATER 11/02/2012 Office visit Mica Lr DRUM PLATER 10/05/2012 [facility] Pablo Croft MD 09/30/2012 Office visit Kylah Wright DRUM PLATER 09/01/2012 Office visit Kylah Wright DRUM PLATER 07/21/2012 Office visit Odette Elam MD 06/16/2012 Office visit Pablo Croft MD 05/11/2012 [facility] Pablo Croft MD 04/28/2012 Office visit Pablo Croft MD 04/20/2012 Office visit Odette Elam MD 03/29/2012 Office visit Pablo Croft MD 03/16/2012 [facility] Pablo Croft MD 03/09/2012 [facility] Pablo Croft MD 02/24/2012 [facility] Pablo Croft MD 02/11/2012 Office visit Pablo Croft MD 01/28/2012 Office visit Pablo Croft MD 01/19/2012 Office visit Odette Elam MD 12/03/2011 Office visit Reji Bowens MD 11/12/2011 Office visit Alison Antoine DRUM PLATER 10/28/2011 Procedures Reji Bowens MD 10/07/2011 Office visit Odette Elam MD 09/04/2011 Surgery Reji Bowens MD 08/15/2011 Surgery Reji Bowens MD 07/22/2011 [facility] Naveen Aguilar MD 07/22/2011 [facility] Reji Bowens MD 07/14/2011 Surgery Reji Bowens MD 06/26/2011 Office visit Odette Elam MD 06/24/2011 Office visit Reji Bowens MD 12/04/2010 [facility] Asha Church MD
--- OUTSIDE RECORDS SUMMARY | 2018-02-14 14:50 | XMS REPORT ---
Author Chelsea Soliz Organization [facility] Address [address] [place], [place] [id number] Care Team Providers Care Motorman/Woman Name Role Phone Chelsea Rodríguez PCP Unavailable [...] oral route once daily for 30 days [place] 10-325 mg oral tablet 03/08/2015 04/07/2015 take 1 tablet by oral route every 6 hours as needed for 30 days amitriptyline 50 mg oral tablet 03/13/2015 07/11/2015 take 1 tablet (50 mg) by oral route once daily at [...] route every 6 hours for 30 days [facility] 30-Day Starter Pack 300 mg (9)- 600 [...] HC BMI BSA BMI Percentile O2 Sat(%) 03/23/2015 8:53:00 AM 128 mmHg 72 mmHg [...] 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 [...] and screen Returned 10/29/2011 12:00 AM CYSTOMETROGRAM W/LOANS CONSULTANT&UP Reviewed 10/29/2011 12:00 AM ELECTRO-UROFLOWMETRY FIRST Reviewed 10/29/2011 12:00 AM INTRAABDOMINAL PRESSURE TEST Reviewed 11/12/2011 12:00 AM X-RAY URETHRA/BLADDER Reviewed 11/12/2011 12:00 AM X-RAY EXAM SI JOINTS 3/> VWS Reviewed 01/28/2012 12:00 AM MRI LUMBAR SPINE W/O DYE Returned 04/20/2012 12:00 AM THER/PROPH/DIAG INJ SC/IM Reviewed 04/20/2012 12:00 AM Depo-Medrol, Per 120 Mg [facility]#0456-9082-61 Reviewed 07/21/2012 12:00 AM THER/PROPH/DIAG INJ SC/IM Reviewed 07/21/2012 12:00 AM Depo-Medrol, Per 120 Mg [facility]#0604-2539-41 Reviewed 09/01/2012 12:00 AM Drug Screen (Non-Medicare) Reviewed 09/01/2012 12:00 AM Kenalog, Per 10 Mg [facility]#0911-0675-88 Reviewed 11/02/2012 12:00 AM Norflex, Up to 60 Mg [facility]#90852-705-12 Reviewed 11/02/2012 12:00 AM INJ TRIGGER POINT 1/2 MUSCL Reviewed 11/02/2012 12:00 AM Bupivicaine, 30 ml [facility]#9128-5137-86 Reviewed 11/02/2012 12:00 AM THER/PROPH/DIAG INJ SC/IM Reviewed 11/02/2012 12:00 AM Norflex, Up to 60 Mg [facility]#92358-630-55 Reviewed 12/27/2012 12:00 AM COMPLETE CBC W/AUTO DIFF WBC Returned 12/27/2012 12:00 AM COMPREHEN METABOLIC PANEL Returned 12/27/2012 12:00 AM ASSAY THYROID STIM HORMONE Returned 12/27/2012 12:00 AM VITAMIN B-12 Returned 12/27/2012 12:00 AM ASSAY OF FERRITIN Returned 12/27/2012 12:00 AM ANTINUCLEAR ANTIBODIES Reviewed 12/27/2012 12:00 AM DNA ANTIBODY KIANA Reviewed 12/27/2012 12:00 AM NUCLEAR ANTIGEN ANTIBODY [...] 12:00 AM Decadron, Per 1 Mg ND# [address]-14 Reviewed 05/31/2013 12:00 AM Depo-Medrol, Per 80 Mg ND#0677-2959-43 Reviewed 05/31/2013 12:00 AM THER/PROPH/DIAG INJ SC/IM Reviewed 06/06/2013 12:00 AM MUSCLE TEST 2 LIMBS Reviewed 06/06/2013 12:00 AM Nerve conduction studies with F-wave Reviewed 08/26/2013 12:00 AM MAMMOGRAM SCREENING Returned 08/26/2013 12:00 AM MAMMOGRAM SCREENING Reviewed 08/30/2013 12:00 AM THER/PROPH/DIAG INJ SC/IM Reviewed 08/30/2013 12:00 AM Decadron, Per 1 Mg NDC# [address]-04 Reviewed 08/30/2013 12:00 AM Depo-Medrol, Per 80 Mg [facility]#4054-6122-48 Reviewed 11/17/2013 12:00 AM THER/PROPH/DIAG INJ SC/IM Reviewed 11/17/2013 12:00 AM Decadron, Per 1 Mg [facility]# [address]-66 Reviewed 11/17/2013 12:00 AM Depo-Medrol 40mg Reviewed 01/06/2014 12:00 AM THER/PROPH/DIAG INJ SC/IM Reviewed 01/06/2014 12:00 AM Decadron, Per 1 Mg [facility]# [address]-89 Reviewed 01/06/2014 12:00 AM Rocephin 1 gram [facility]#3679-1736-72 Reviewed 01/10/2014 12:00 AM OFFICE/OUTPATIENT VISIT EST [...] Per 1 Mg [facility]# [address]-73 Reviewed 10/12/2014 12:00 AM Depo-Medrol 40mg Reviewed [...] Vis Given Vis Pub CVX Influenza 03/02/2013 sanMasala pasteur PMC Fluzone [id number] Intramuscular Left Deltoid 03/02/2013 12/17/2012 141 Pneumococcal 02/28/2014 [employer] MSD Pneumovax 23 [id number] Intramuscular Left Deltoid 02/28/2014 02/27/2009 33 Influenza 03/23/2015 Surphace pasteur PMC Fluzone Quadrivalent [id number] Intramuscular Right Deltoid 03/23/2015 12/29/2014 140 History [...] Sep 3 2012 3:35PM Neuralgia Jan 3 2012 [...] 2015 8:55AM Depression Mar 23 2015 8:55AM Payers Insurance Name Company Name Plan Name Plan Number Policy Number Policy Group Number Start Date R UMR [id number] N/A [facility] [employer] [facility] [id number] N/A [employer] [facility] [id number] Saturday, 2011 [employer] [place] [id number] N/A [employer] [place] [id number] Thursday, 2013 History of Encounters Visit Date Visit Type Provider 03/23/2015 Office visit Chelsea Rodríguez INSIDE SALES COORDINATOR 03/08/2015 Office visit Adela Saravia Douglas INSIDE SALES AGENT 02/14/2015 Office visit Leonardo Cowan INSIDE SALES COORDINATOR 02/08/2015 Office visit Adela Cole INSIDE SALES AGENT 02/07/2015 Office visit Leonardo Cowan INSIDE SALES COORDINATOR 01/11/2015 Office visit Adela Cole INSIDE SALES AGENT 12/28/2014 Office visit Chelsea Rodríguez INSIDE SALES COORDINATOR 12/14/2014 Nurse visit Adela AlexMarcus Douglas INSIDE SALES AGENT 11/23/2014 Nurse visit Adela AlexMarcus Douglas INSIDE SALES AGENT 10/26/2014 Office visit Adela AlexMarcus Douglas INSIDE SALES AGENT 10/12/2014 Office visit Chelsea Rodríguez INSIDE SALES COORDINATOR 10/05/2014 Nurse visit Adelacatherine Cole INSIDE SALES AGENT 09/07/2014 Office visit Adela M. Douglas INSIDE SALES AGENT 08/17/2014 Office visit Chelsea Rodríguez INSIDE SALES COORDINATOR 08/14/2014 Office visit Adela M. Douglas INSIDE SALES AGENT 07/27/2014 Office visit Adela Saravia Douglas PITTMANP 2014 Office visit Adela AlexMarcus Douglas INSIDE SALES AGENT 2014 Office visit Mica Lr INSIDE SALES COORDINATOR 06/28/2014 Nurse visit Adela PITTMANP 05/31/2014 Office visit Adela Cole INSIDE SALES AGENT 05/03/2014 Voided Adela Cole INSIDE SALES AGENT 04/26/2014 Office visit Mica Lr INSIDE SALES COORDINATOR 04/05/2014 Office visit Adela PITTMANP 03/10/2014 Office visit Adela PITTMANP 02/28/2014 Office visit Mica Lr INSIDE SALES COORDINATOR 02/24/2014 Office visit Adela PITTMANP 02/06/2014 Office visit Adela PITTMANP 01/10/2014 Nurse visit Suzan Liang MD 01/06/2014 Office visit Mica Lr INSIDE SALES COORDINATOR 12/15/2013 Office visit Adela Cole INSIDE SALES AGENT 11/17/2013 Office visit Chelsea Rodríguez INSIDE SALES COORDINATOR 11/17/2013 Office visit Adela PITTMANP 10/20/2013 Office visit Adela PITTMANP 09/22/2013 Office visit Adela PITTMANP 08/30/2013 Office visit Chelsea Rodríguez INSIDE SALES COORDINATOR 08/26/2013 Office visit Beti Reyna INSIDE SALES COORDINATOR 07/29/2013 Office visit Adela PITTMANP 07/06/2013 Procedures Elmira Campbell MD 07/01/2013 Office visit Adelacatherine Cole INSIDE SALES AGENT 06/06/2013 Office visit Adelacatherine Cole INSIDE SALES AGENT 05/31/2013 Office visit Chelsea Rodríguez INSIDE SALES COORDINATOR 05/11/2013 Office visit Adela Cole INSIDE SALES AGENT 03/22/2013 Office visit Adela Cole INSIDE SALES AGENT 03/10/2013 Office visit Adela Cole INSIDE SALES AGENT 03/04/2013 Office visit Adela Manjit Douglas INSIDE SALES AGENT 03/02/2013 Office visit Odette Elam MD 02/22/2013 Office visit Adela M. Douglas INSIDE SALES AGENT 01/28/2013 Office visit Chelsea Rodríguez INSIDE SALES COORDINATOR 01/25/2013 Office visit Adela Cole INSIDE SALES AGENT 12/27/2012 Office visit Adela Manjit Douglas INSIDE SALES AGENT 12/07/2012 Hospital Pablo Croft MD 11/24/2012 Office visit Pablo Croft MD 11/02/2012 Office visit Kylah Wright INSIDE SALES COORDINATOR 11/02/2012 Office visit Mica Lr INSIDE SALES COORDINATOR 10/05/2012 [facility] Pablo Croft MD 09/30/2012 Office visit Kylah Wright INSIDE SALES COORDINATOR 09/01/2012 Office visit Kylah Wright INSIDE SALES COORDINATOR 07/21/2012 Office visit Odette Elam MD [...] Bowens MD 11/12/2011 Office visit Alison Antoine INSIDE SALES COORDINATOR 10/28/2011 Procedures Reji Bowens MD 10/07/2011 Office [...]
--- OUTSIDE RECORDS SUMMARY | 2018-02-14 14:52 | XMS REPORT ---
Author Chelsea Soliz Organization [facility] Address [address] [place], [place] [id number] Care Team Providers Care Business Affairs Manager Name Role Phone Chelsea Rodríguez PCP [...] then Take 1 tab x 2 days. 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#0726-3686-05 Reviewed 07/21/2012 12:00 AM THER/PROPH/DIAG INJ SC/IM Reviewed 07/21/2012 12:00 AM Depo-Medrol, Per [address] [facility]#7474-0310-58 Reviewed 09/01/2012 12:00 AM Drug Screen (Non-Medicare) Reviewed 09/01/2012 12:00 AM Kenalog, Per [address] [facility]#0130-4636-74 Reviewed 11/02/2012 12:00 AM Norflex, Up to [address] [facility]#55806-237-54 Reviewed 11/02/2012 12:00 AM INJ TRIGGER POINT 1/2 MUSCL Reviewed 11/02/2012 12:00 AM Bupivicaine, [address] [facility]#3794-5608-65 Reviewed 11/02/2012 12:00 AM THER/PROPH/DIAG INJ SC/IM Reviewed 11/02/2012 12:00 AM Norflex, Up to [address] [facility]#08890-961-12 Reviewed 12/27/2012 12:00 AM COMPLETE CBC W/AUTO DIFF WBC Returned 12/27/2012 12:00 AM COMPREHEN METABOLIC PANEL Returned 12/27/2012 12:00 AM ASSAY THYROID STIM HORMONE Returned 12/27/2012 12:00 AM VITAMIN B-12 Returned 12/27/2012 12:00 AM ASSAY OF FERRITIN Returned 12/27/2012 12:00 AM ANTINUCLEAR ANTIBODIES Reviewed 12/27/2012 12:00 AM DNA ANTIBODY [place] Reviewed 12/27/2012 12:00 AM NUCLEAR ANTIGEN ANTIBODY [...] AM Decadron, Per [address] [facility]# [address]-44 Reviewed 05/31/2013 12:00 AM Depo-Medrol, Per [address] [facility]#8990-8513-45 Reviewed 05/31/2013 12:00 AM THER/PROPH/DIAG INJ SC/IM Reviewed 06/06/2013 12:00 AM MUSCLE TEST 2 LIMBS Reviewed 06/06/2013 12:00 AM Nerve conduction studies with F-wave Reviewed 08/26/2013 12:00 AM MAMMOGRAM SCREENING Returned 08/26/2013 12:00 AM MAMMOGRAM SCREENING Reviewed 08/30/2013 12:00 AM THER/PROPH/DIAG INJ SC/IM Reviewed 08/30/2013 12:00 AM Decadron, Per [address] [facility]# [address]-49 Reviewed 08/30/2013 12:00 AM Depo-Medrol, Per [address] [facility]#2957-0690-81 Reviewed 11/17/2013 12:00 AM THER/PROPH/DIAG INJ SC/IM Reviewed 11/17/2013 12:00 AM Decadron, Per [address] [facility]# [address]-26 Reviewed 11/17/2013 12:00 AM Depo-Medrol 40mg Reviewed 01/06/2014 12:00 AM THER/PROPH/DIAG INJ SC/IM Reviewed 01/06/2014 12:00 AM Decadron, Per [address] [facility]# [address]-95 Reviewed 01/06/2014 12:00 AM Rocephin [address] [facility]#0438-5346-71 Reviewed 01/10/2014 12:00 AM OFFICE/OUTPATIENT VISIT EST [...] AM Decadron, Per [address] [facility]# [address]-44 Reviewed 10/12/2014 12:00 AM Depo-Medrol 40mg Reviewed [...] CVX Influenza 03/02/2013 sanofi pasteur PMC Fluzone [id number] Intramuscular Left Deltoid 03/02/2013 12/17/2012 141 Pneumococcal 02/28/2014 [employer] Inc. MSD Pneumovax 23 [id number] Intramuscular Left Deltoid 02/28/2014 02/27/2009 33 Influenza 03/23/2015 sanofi pasteur PMC Fluzone Quadrivalent [id number] Intramuscular Right Deltoid 03/23/2015 12/29/2014 140 History [...] Policy Group Number Start Date R UMR [id number] N/A [facility] [employer] [facility] [id number] N/A [employer] [place] [id number] Saturday, 2011 [employer] [place] [id number] N/A [employer] [place] [id number] Thursday, 2013 History of Encounters Visit Date Visit Type Provider 06/21/2015 Office visit Chelsea Rodríguez PROFESSOR OF PSYCHOLOGY 05/03/2015 Nurse visit Adela Cole SENIOR APPLICATIONS ENGINEER 04/12/2015 Office visit Adela Cole SENIOR APPLICATIONS ENGINEER 03/23/2015 Office visit Chelsea Rodríguez PROFESSOR OF PSYCHOLOGY 03/08/2015 Office visit Adela PITTMANP 02/14/2015 Office visit Leonardo Cowan PROFESSOR OF PSYCHOLOGY 02/08/2015 Office visit Adela PITTMANP 02/07/2015 Office visit Leonardo Cowan PROFESSOR OF PSYCHOLOGY 01/11/2015 Office visit Adela Cole SENIOR APPLICATIONS ENGINEER 12/28/2014 Office visit Chelsea Rodríguez PROFESSOR OF PSYCHOLOGY 12/14/2014 Nurse visit Adela Cole SENIOR APPLICATIONS ENGINEER 11/23/2014 Nurse visit Adela PITTMANP 10/26/2014 Office visit Adela PITTMANP 10/12/2014 Office visit 10/12/2014 Office visit Chelsea Rodríguez PROFESSOR OF PSYCHOLOGY 10/05/2014 Nurse visit Adela PITTMANP 09/07/2014 Office visit Adela PITTMANP 08/17/2014 Office visit 08/17/2014 Office visit 08/17/2014 Office visit Chelsea Rodríguez PROFESSOR OF PSYCHOLOGY 08/14/2014 Office visit Adela PITTMANP 07/27/2014 Office visit Adela PITTMANP 2014 Office visit Adela PITTMANP 2014 Office visit Mica Lr PROFESSOR OF PSYCHOLOGY 06/28/2014 Nurse visit Adela PITTMANP 05/31/2014 Office visit Adela PITTMANP 05/03/2014 Voided Adela PITTMANP 04/26/2014 Office visit Mica Lr PROFESSOR OF PSYCHOLOGY 04/05/2014 Office visit Adela PITTMANP 03/10/2014 Office visit Adela PITTMANP 02/28/2014 Office visit Mica Lr PROFESSOR OF PSYCHOLOGY 02/24/2014 Office visit Adela PITTMANP 02/06/2014 Office visit Adela PITTMANP 01/10/2014 Nurse visit Suzan Liang MD 01/06/2014 Office visit Mica Lr PROFESSOR OF PSYCHOLOGY 12/15/2013 Office visit Adela PITTMANP 11/17/2013 Office visit Chelsea Rodríguez PROFESSOR OF PSYCHOLOGY 11/17/2013 Office visit Adela PITTMANP 10/20/2013 Office visit Adela Cole SENIOR APPLICATIONS ENGINEER 09/22/2013 Office visit Adela AlexMarcus Cole SENIOR APPLICATIONS ENGINEER 08/30/2013 Office visit Chelsea Rodríguez PROFESSOR OF PSYCHOLOGY 08/26/2013 Office visit Beti Reyna PROFESSOR OF PSYCHOLOGY 07/29/2013 Office visit Adela Cole SENIOR APPLICATIONS ENGINEER 07/06/2013 [facility] Elmira Campbell MD 07/01/2013 Office visit Adela M. Douglas SENIOR APPLICATIONS ENGINEER 06/06/2013 Office visit Adela M. Douglas SENIOR APPLICATIONS ENGINEER 05/31/2013 Office visit Chelsea Rodríguez PROFESSOR OF PSYCHOLOGY 05/11/2013 Office visit Adela AlexMarcus Cole SENIOR APPLICATIONS ENGINEER 03/22/2013 Office visit Adela AlexMarcus Cole SENIOR APPLICATIONS ENGINEER 03/10/2013 Office visit Adela M. Douglas SENIOR APPLICATIONS ENGINEER 03/04/2013 Office visit Adela AlexMarcus Cole SENIOR APPLICATIONS ENGINEER 03/02/2013 Office visit Odette Elam MD 02/22/2013 Office visit Adela Cole SENIOR APPLICATIONS ENGINEER 01/28/2013 Office visit Chelsea Rodríguez PROFESSOR OF PSYCHOLOGY 01/25/2013 Office visit Adela Cole SENIOR APPLICATIONS ENGINEER 12/27/2012 Office visit Adela Cole SENIOR APPLICATIONS ENGINEER 12/07/2012 [facility] Pablo Croft MD 11/24/2012 Office visit Pablo Croft MD 11/02/2012 Office visit Kylah Wright PROFESSOR OF PSYCHOLOGY 11/02/2012 Office visit Mica Lr PROFESSOR OF PSYCHOLOGY 10/05/2012 [facility] Pablo Croft MD 09/30/2012 Office visit Kylah Wright PROFESSOR OF PSYCHOLOGY 09/01/2012 Office visit Kylah Wright PROFESSOR OF PSYCHOLOGY 07/21/2012 Office visit Odette Elam MD 06/16/2012 [...]
--- OUTSIDE RECORDS SUMMARY | 2018-02-14 14:55 | XMS REPORT ---
Author Author Leonardo Cowan [facility] Address [address] [place], [place] [address] Care Team Providers Care Steel Tier Name Role Phone Leonardo Cowan PCP Allergies [...] then Take 1 tab x 2 days. 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 [...] Mg [facility]# [address]-67 Reviewed 11/27/2015 12:00 AM Depo-Medrol 40mg Reviewed [...] and screen Returned 10/29/2011 12:00 AM CYSTOMETROGRAM W/CEMENTER MACHINE JOINER&UP Reviewed 10/29/2011 12:00 AM ELECTRO-UROFLOWMETRY FIRST Reviewed 10/29/2011 12:00 AM INTRAABDOMINAL PRESSURE TEST Reviewed 11/12/2011 12:00 AM X-RAY URETHRA/BLADDER Reviewed 11/12/2011 12:00 AM X-RAY EXAM SI JOINTS 3/> VWS Reviewed 01/28/2012 12:00 AM MRI LUMBAR SPINE W/O DYE Returned 04/20/2012 12:00 AM THER/PROPH/DIAG INJ SC/IM Reviewed 04/20/2012 12:00 AM Depo-Medrol, Per 120 Mg [facility]#4823-3773-14 Reviewed 07/21/2012 12:00 AM THER/PROPH/DIAG INJ SC/IM Reviewed 07/21/2012 12:00 AM Depo-Medrol, Per 120 Mg [facility]#9470-8939-31 Reviewed 09/01/2012 12:00 AM Drug Screen (Non-Medicare) Reviewed 09/01/2012 12:00 AM DRAIN/INJ JOINT/BURSA W/O US Reviewed 09/01/2012 12:00 AM Kenalog, Per 10 Mg [facility]#8271-0506-49 Reviewed 11/02/2012 12:00 AM Norflex, Up to 60 Mg [facility]#76305-304-75 Reviewed 11/02/2012 12:00 AM INJ TRIGGER POINT 1/2 MUSCL Reviewed 11/02/2012 12:00 AM Bupivicaine, 30 ml [facility]#4406-1471-99 Reviewed 11/02/2012 12:00 AM THER/PROPH/DIAG INJ SC/IM Reviewed 11/02/2012 12:00 AM Norflex, Up to 60 Mg [facility]#88003-364-93 Reviewed 12/27/2012 12:00 AM COMPLETE CBC W/AUTO DIFF WBC Returned 12/27/2012 12:00 AM COMPREHEN METABOLIC PANEL Returned 12/27/2012 12:00 AM ASSAY THYROID STIM HORMONE Returned 12/27/2012 12:00 AM VITAMIN B-12 Returned 12/27/2012 12:00 AM ASSAY OF FERRITIN Returned 12/27/2012 12:00 AM ANTINUCLEAR ANTIBODIES Reviewed 12/27/2012 12:00 AM DNA ANTIBODY [place] Reviewed 12/27/2012 12:00 AM NUCLEAR ANTIGEN ANTIBODY [...] Mg [facility]# [address]-48 Reviewed 05/31/2013 12:00 AM Depo-Medrol, Per 80 Mg [place]#1071-6160-43 Reviewed 05/31/2013 12:00 AM THER/PROPH/DIAG INJ SC/IM Reviewed 06/06/2013 12:00 AM MUSCLE TEST 2 LIMBS Reviewed 06/06/2013 12:00 AM Nerve conduction studies with F-wave Reviewed 08/26/2013 12:00 AM MAMMOGRAM SCREENING Returned 08/26/2013 12:00 AM MAMMOGRAM SCREENING Reviewed 08/30/2013 12:00 AM THER/PROPH/DIAG INJ SC/IM Reviewed 08/30/2013 12:00 AM Decadron, Per 1 Mg [facility]# [address]-31 Reviewed 08/30/2013 12:00 AM Depo-Medrol, Per 80 Mg [facility]#9546-0894-18 Reviewed 11/17/2013 12:00 AM THER/PROPH/DIAG INJ SC/IM Reviewed 11/17/2013 12:00 AM Decadron, Per 1 Mg [facility]# [address]-33 Reviewed 11/17/2013 12:00 AM Depo-Medrol 40mg Reviewed 01/06/2014 12:00 AM THER/PROPH/DIAG INJ SC/IM Reviewed 01/06/2014 12:00 AM Decadron, Per 1 Mg [facility]# [address]-59 Reviewed 01/06/2014 12:00 AM Rocephin 1 gram [facility]#2586-9506-59 Reviewed 01/10/2014 12:00 AM OFFICE/OUTPATIENT VISIT EST [...] Mg [facility]# [address]-82 Reviewed 10/12/2014 12:00 AM Depo-Medrol 40mg Reviewed [...] CVX Influenza 03/02/2013 sanofi pasteur PMC Fluzone [id number] Intramuscular Left Deltoid 03/02/2013 12/17/2012 141 X 02/28/2014 [employer]ck [employer] Inc. MSD Pneumovax 23 [id number] Intramuscular Left Deltoid 02/28/2014 02/27/2009 33 Influenza 03/23/2015 sanofi pasteur PMC Fluzone Quadrivalent [id number] Intramuscular Right Deltoid 03/23/2015 12/29/2014 140 History [...] Number Start Date [employer] [place] [id number] N/A [employer] [place] [id number] Saturday, 2011 [employer] [place] [id number] N/A [employer] [place] [id number] Thursday, 2013 [facility] UMR [id number] N/A [facility] [employer] [facility] [id number] N/A History of Encounters Visit Date Visit [...] Office visit 10/12/2014 Office visit Chelsea Rodríguez REGISTERED REPRESENTATIVE 10/05/2014 Nurse visit Adela Cole BUS MATRON 09/07/2014 Office visit Adela Cole BUS MATRON 08/17/2014 Office visit 08/17/2014 Office visit 08/17/2014 Office visit Chelsea Rodríguez REGISTERED REPRESENTATIVE 08/14/2014 Office visit Adela Cole BUS MATRON 07/27/2014 Office visit Adela Cole BUS MATRON 2014 Office visit Adela Cole BUS MATRON 2014 Office visit Mica Lr REGISTERED REPRESENTATIVE 06/28/2014 Nurse visit Adela Cole BUS MATRON 05/31/2014 Office visit Adela Cole BUS MATRON 05/03/2014 Voided Adela Cole BUS MATRON 04/26/2014 Office visit Mica Lr REGISTERED REPRESENTATIVE 04/05/2014 Office visit Adela Cole BUS MATRON 03/10/2014 Office visit Adela PITTMANP 02/28/2014 Office visit Mica Lr REGISTERED REPRESENTATIVE 02/24/2014 Office visit Adela PITTMANP 02/06/2014 Office visit Adela PITTMANP 01/10/2014 Nurse visit Suzan Liang MD 01/06/2014 Office visit Mica Lr REGISTERED REPRESENTATIVE 12/15/2013 Office visit Adela Cole BUS MATRON 11/17/2013 Office visit Chelsea Rodríguez REGISTERED REPRESENTATIVE 11/17/2013 Office visit Adela Cole BUS MATRON 10/20/2013 Office visit Adela Cole BUS MATRON 09/22/2013 Office visit Adela Cole BUS MATRON 08/30/2013 Office visit Chelsea Rodríguez REGISTERED REPRESENTATIVE 08/26/2013 Office visit Beti Reyna REGISTERED REPRESENTATIVE 07/29/2013 Office visit Adela Cole BUS MATRON 07/06/2013 Procedures Elmira Campbell MD 07/01/2013 Office visit Adela Cole BUS MATRON 06/06/2013 Office visit Adela PITTMANP 05/31/2013 Office visit Chelsea Rodríguez REGISTERED REPRESENTATIVE 05/11/2013 Office visit Adeal Cole BUS MATRON 03/22/2013 Office visit Adela Cole BUS MATRON 03/10/2013 Office visit Adela Cole BUS MATRON 03/04/2013 Office visit Adela Cole BUS MATRON 03/02/2013 Office visit Odette Elam MD 02/22/2013 Office visit Adela Saravia Douglas BUS MATRON 01/28/2013 Office visit Chelsea Rodríguez REGISTERED REPRESENTATIVE 01/25/2013 Office visit Adela Cole BUS MATRON 12/27/2012 Office visit Adela M. Douglas BUS MATRON 12/07/2012 [facility] Pablo Croft MD 11/24/2012 Office visit Pablo Croft MD 11/02/2012 Office visit Kylah Wright REGISTERED REPRESENTATIVE 11/02/2012 Office visit Mica Lr REGISTERED REPRESENTATIVE 10/05/2012 [facility] Pablo Croft MD 09/30/2012 Office visit yKlah Wright REGISTERED REPRESENTATIVE 09/01/2012 Office visit Kylah Wright REGISTERED REPRESENTATIVE 07/21/2012 Office visit Odette Elam MD 06/16/2012 Office visit Pablo Croft MD 05/11/2012 [facility] Pablo Croft MD 04/28/2012 Office visit Pablo Croft MD 04/20/2012 Office visit Odette Elam MD 03/29/2012 Office visit Pablo Croft MD 03/16/2012 [facility] Pablo Croft MD 03/09/2012 [facility] Pablo Croft MD 02/24/2012 [facility] Pablo Croft MD 02/11/2012 Office visit Pablo Croft MD 01/28/2012 Office visit Pablo Croft MD 01/19/2012 Office visit Odette Elam MD 12/03/2011 Office visit Reji Bowens MD 11/12/2011 Office visit Alison Antoine REGISTERED REPRESENTATIVE 10/28/2011 Procedures Reji Bowens MD 10/07/2011 Office visit Odette Elam MD 09/04/2011 Surgery Reji Bowens MD 08/15/2011 Surgery Reji Bowens MD 07/22/2011 [facility] Naveen Aguilar MD 07/22/2011 [facility] Reji Bowens MD 07/14/2011 Surgery Reji Bowens MD 06/26/2011 Office visit Odette Elam MD 06/24/2011 Office visit Reji Bowens MD 12/04/2010 [facility] Asha Church MD
--- OUTSIDE RECORDS SUMMARY | 2018-02-14 14:58 | XMS REPORT ---
Author Chelsea Soliz Organization [facility] Address [address] [place], [place] [id number] Care Team Providers Care Baker Apprentice Name Role Phone Chelsea Rodríguez PCP Unavailable [...] then Take 1 tab x 2 days. 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 [...] Decadron, Per 1 Mg [facility]# [address]-99 Reviewed 11/27/2015 12:00 AM Depo-Medrol 40mg Reviewed [...] PLUS IM Reviewed 10/29/2011 12:00 AM CYSTOMETROGRAM W/CENTER HUMAN RESOURCES MANAGER&UP Reviewed 10/29/2011 12:00 AM ELECTRO-UROFLOWMETRY FIRST Reviewed 10/29/2011 12:00 AM INTRAABDOMINAL PRESSURE TEST Reviewed 11/12/2011 12:00 AM X-RAY URETHRA/BLADDER Reviewed 11/12/2011 12:00 AM X-RAY EXAM SI JOINTS 3/> VWS Reviewed 01/28/2012 12:00 AM MRI LUMBAR SPINE W/O DYE Returned 04/20/2012 12:00 AM THER/PROPH/DIAG INJ SC/IM Reviewed 04/20/2012 12:00 AM Depo-Medrol, Per 120 Mg [facility]#3328-9063-23 Reviewed 07/21/2012 12:00 AM THER/PROPH/DIAG INJ SC/IM Reviewed 07/21/2012 12:00 AM Depo-Medrol, Per 120 Mg [facility]#1342-6610-25 Reviewed 09/01/2012 12:00 AM Drug Screen (Non-Medicare) Reviewed 09/01/2012 12:00 AM DRAIN/INJ JOINT/BURSA W/O US Reviewed 09/01/2012 12:00 AM Kenalog, Per 10 Mg [facility]#6203-4662-40 Reviewed 11/02/2012 12:00 AM Norflex, Up to 60 Mg [facility]#71650-486-80 Reviewed 11/02/2012 12:00 AM INJ TRIGGER POINT 1/2 MUSCL Reviewed 11/02/2012 12:00 AM Bupivicaine, 30 ml [facility]#9935-8231-86 Reviewed 11/02/2012 12:00 AM THER/PROPH/DIAG INJ SC/IM Reviewed 11/02/2012 12:00 AM Norflex, Up to 60 Mg [facility]#51357-246-28 Reviewed 12/27/2012 12:00 AM COMPLETE CBC W/AUTO DIFF WBC Returned 12/27/2012 12:00 AM COMPREHEN METABOLIC PANEL Returned 12/27/2012 12:00 AM ASSAY THYROID STIM HORMONE Returned 12/27/2012 12:00 AM VITAMIN B-12 Returned 12/27/2012 12:00 AM ASSAY OF FERRITIN Returned 12/27/2012 12:00 AM ANTINUCLEAR ANTIBODIES Reviewed 12/27/2012 12:00 AM DNA ANTIBODY [place] Reviewed 12/27/2012 12:00 AM NUCLEAR ANTIGEN ANTIBODY [...] Decadron, Per 1 Mg [facility]# [address]-01 Reviewed 05/31/2013 12:00 AM Depo-Medrol, Per 80 Mg [facility]#3369-6523-77 Reviewed 05/31/2013 12:00 AM THER/PROPH/DIAG INJ SC/IM Reviewed 06/06/2013 12:00 AM MUSCLE TEST 2 LIMBS Reviewed 06/06/2013 12:00 AM Nerve conduction studies with F-wave Reviewed 08/26/2013 12:00 AM MAMMOGRAM SCREENING Returned 08/26/2013 12:00 AM MAMMOGRAM SCREENING Reviewed 08/30/2013 12:00 AM THER/PROPH/DIAG INJ SC/IM Reviewed 08/30/2013 12:00 AM Decadron, Per 1 Mg [facility]# [address]-69 Reviewed 08/30/2013 12:00 AM Depo-Medrol, Per 80 Mg [facility]#7523-3173-94 Reviewed 11/17/2013 12:00 AM THER/PROPH/DIAG INJ SC/IM Reviewed 11/17/2013 12:00 AM Decadron, Per 1 Mg [facility]# [address]-76 Reviewed 11/17/2013 12:00 AM Depo-Medrol 40mg Reviewed 01/06/2014 12:00 AM THER/PROPH/DIAG INJ SC/IM Reviewed 01/06/2014 12:00 AM Decadron, Per 1 Mg [facility]# [address]-85 Reviewed 01/06/2014 12:00 AM Rocephin 1 gram [facility]#6855-6609-15 Reviewed 01/10/2014 12:00 AM OFFICE/OUTPATIENT VISIT EST [...] Decadron, Per 1 Mg [facility]# [address]-25 Reviewed 10/12/2014 12:00 AM Depo-Medrol 40mg Reviewed [...] CVX Influenza 03/02/2013 sanofi pasteur PMC Fluzone [id number] Intramuscular Left Deltoid 03/02/2013 12/17/2012 141 X 02/28/2014 Merck & Co., Inc. MSD Pneumovax 23 [id number] Intramuscular Left Deltoid 02/28/2014 02/27/2009 33 Influenza 03/23/2015 sanofi pasteur PMC Fluzone Quadrivalent [id number] Intramuscular Right Deltoid 03/23/2015 12/29/2014 140 Influenza [...] Number Start Date [employer] [place] [id number] N/A Res Care ResCare [id number] N/A [facility] [id number] N/A [employer] [place] [id number] Saturday, 2011 [employer] [place] [id number] N/A [employer] [place] [id number] Thursday, 2013 R UMR [id number] N/[facility] [employer] [facility] [id number] N/A History of Encounters Visit Date Visit Type Provider 03/04/2016 Office visit Chelsea Rodríguez APRN 01/14/2016 Office visit Chelsea Rodríguez APRN 01/09/2016 Office visit Leonardo Cowan APRN 01/04/2016 Office visit Leonardo Cowan HEEL SANDER 11/27/2015 Office visit Chelsea Rodríguze APRN 08/23/2015 Office visit Chelsea Rodríguez APRN 07/19/2015 Office visit 07/19/2015 Office visit Chelsea Rodríguez APRN 06/21/2015 Office visit Chelsea Rodríguez HEEL SANDER 05/03/2015 Nurse visit Adela Cole BARK GRINDER 04/12/2015 Office visit Adela MMarcus Cole BARK GRINDER 03/23/2015 Office visit Chelsea Rodríguez HEEL SANDER 03/08/2015 Office visit Adela Manjit Cole BARK GRINDER 02/14/2015 Office visit Leonardo Cowan HEEL SANDER 02/08/2015 Office visit Adela AlexMarcus Douglas PITTMANP 02/07/2015 Office visit Leonardo Cowan HEEL SANDER 01/11/2015 Office visit Adela Cole BARK GRINDER 12/28/2014 Office visit Chelsea Rodríguez HEEL SANDER 12/14/2014 Nurse visit Adela Cole BARK GRINDER 11/23/2014 Nurse visit Adela Cole BARK GRINDER 10/26/2014 Office visit Adela Cole BARK GRINDER 10/12/2014 Office visit 10/12/2014 Office visit Chelsea Rodríguez HEEL SANDER 10/05/2014 Nurse visit Adela Cole BARK GRINDER 09/07/2014 Office visit Adela PITTMANP 08/17/2014 Office visit 08/17/2014 Office visit 08/17/2014 Office visit Chelsea Rodríguez HEEL SANDER 08/14/2014 Office visit Adela PITTMANP 07/27/2014 Office visit Adela PITTMANP 2014 Office visit Adela PITTMANP 2014 Office visit Mica Lr HEEL SANDER 06/28/2014 Nurse visit Adela PITTMANP 05/31/2014 Office visit Adela PITTMANP 05/03/2014 Voided Adela PITTMANP 04/26/2014 Office visit Mica Lr HEEL SANDER 04/05/2014 Office visit Adela PITTMANP 03/10/2014 Office visit Adela PITTMANP 02/28/2014 Office visit Mica Lr HEEL SANDER 02/24/2014 Office visit Adela PITTMANP 02/06/2014 Office visit Adela PITTMANP 01/10/2014 Nurse visit Suzan Liang MD 01/06/2014 Office visit Mica Lr HEEL SANDER 12/15/2013 Office visit Adela PITTMANP 11/17/2013 Office visit Chelsea Rodríguez HEEL SANDER 11/17/2013 Office visit Adela PITTMANP 10/20/2013 Office visit Adela PITTMANP 09/22/2013 Office visit Adela PITTMANP 08/30/2013 Office visit Chelsea Rodríguez HEEL SANDER 08/26/2013 Office visit Btei Reyna HEEL SANDER 07/29/2013 Office visit Adela Cole BARK GRINDER 07/06/2013 Procedures Elmira Campbell MD 07/01/2013 Office visit Adela AlexMarcus Cole BARK GRINDER 06/06/2013 Office visit Adela Cole BARK GRINDER 05/31/2013 Office visit Chelsea Rodríguez HEEL SANDER 05/11/2013 Office visit Adela Saravia Douglas BARK GRINDER 03/22/2013 Office visit Adela M. Douglas BARK GRINDER 03/10/2013 Office visit Adelacatherine Cole BARK GRINDER 03/04/2013 Office visit Adela Manjit Douglas BARK GRINDER 03/02/2013 Office visit Odette Elam MD 02/22/2013 Office visit Adela AlexMarcus Cole BARK GRINDER 01/28/2013 Office visit Chelsea Rodríguez HEEL SANDER 01/25/2013 Office visit Adela Manjit Douglas BARK GRINDER 12/27/2012 Office visit Aedla Cole BARK GRINDER 12/07/2012 Hospital Pablo Croft MD 11/24/2012 Office visit Pablo Croft MD 11/02/2012 Office visit Kylah Wright HEEL SANDER 11/02/2012 Office visit Mica Lr HEEL SANDER 10/05/2012 Hospital Pablo Croft MD 09/30/2012 Office visit Kylah Wright HEEL SANDER 09/01/2012 Office visit Kylah Wright HEEL SANDER 07/21/2012 Office visit Odette Elam MD [...] Bowens MD 11/12/2011 Office visit Alison Antoine HEEL SANDER 10/28/2011 Procedures Reji Bowens MD 10/07/2011 [...]
--- OUTSIDE RECORDS SUMMARY | 2018-02-14 15:01 | XMS REPORT ---
Author Author Chelsea Rodríguez Organization [facility] Address [address] [place], [place] [address] Care Team Providers Care Minesweeping Officer Name Role Phone hCelsea Rodríguez PCP Chelsea Rodríguez PreferredProvider Allergies and [...] route every 6 hours [facility] 300 [facility] (9)- [...] then Take 1 tab x 2 days. [place] 10-325 mg oral tablet 05/03/2015 06/02/2015 take [...] AM Decadron, Per 1 Mg [facility]# [address]-33 Reviewed 11/27/2015 12:00 AM Depo-Medrol 40mg Reviewed [...] 04/24/2016 12:00 AM Toradol 60 Mg [facility]#1134-0233-47 Reviewed 06/11/2016 12:00 AM Consult/Referral Reviewed 06/11/2016 2:41 PM URINALYSIS AUTO W/O SCOPE Reviewed 06/11/2016 12:00 AM URINE CULTURE/COLONY COUNT Reviewed 06/13/2016 12:00 AM Splint, prefabricated, wrist or ankle Reviewed 07/31/2016 12:00 AM LIPID PANEL Reviewed 07/31/2016 12:00 AM MAMMOGRAPHY SCREENING, DIGITAL Reviewed 10/29/2011 12:00 AM CYSTOMETROGRAM W/VENEER MARKER&UP Reviewed 10/29/2011 12:00 AM ELECTRO-UROFLOWMETRY FIRST Reviewed [...] 12:00 AM Depo-Medrol, Per 120 Mg [facility]#5974-0020-11 Reviewed 07/21/2012 12:00 AM THER/PROPH/DIAG INJ SC/IM Reviewed 07/21/2012 12:00 AM Depo-Medrol, Per 120 Mg [facility]#2779-2662-03 Reviewed 09/01/2012 12:00 AM Drug Screen (Non-Medicare) Reviewed 09/01/2012 12:00 AM DRAIN/INJ JOINT/BURSA W/O US Reviewed 09/01/2012 12:00 AM Kenalog, Per 10 Mg [facility]#8631-7011-31 Reviewed 11/02/2012 12:00 AM Norflex, Up to 60 Mg [facility]#16270-783-07 Reviewed 11/02/2012 12:00 AM INJ TRIGGER POINT 1/2 MUSCL Reviewed 11/02/2012 12:00 AM Bupivicaine, 30 ml [facility]#1206-3021-48 Reviewed 11/02/2012 12:00 AM THER/PROPH/DIAG INJ SC/IM Reviewed 11/02/2012 12:00 AM Norflex, Up to 60 Mg [facility]#36269-700-44 Reviewed 12/27/2012 12:00 AM COMPLETE CBC W/AUTO DIFF WBC Reviewed 12/27/2012 12:00 AM COMPREHEN METABOLIC PANEL Reviewed 12/27/2012 12:00 AM ASSAY THYROID STIM HORMONE Reviewed 12/27/2012 12:00 AM VITAMIN B-12 Reviewed 12/27/2012 12:00 AM ASSAY OF FERRITIN Reviewed 12/27/2012 12:00 AM ANTINUCLEAR ANTIBODIES Reviewed 12/27/2012 12:00 AM DNA ANTIBODY [place] Reviewed 12/27/2012 12:00 AM NUCLEAR ANTIGEN ANTIBODY [...] 05/31/2013 12:00 AM Decadron, Per 1 Mg [facility]# [address]-53 Reviewed 05/31/2013 12:00 AM Depo-Medrol, Per 80 Mg [place]#0853-2185-41 Reviewed 05/31/2013 12:00 AM THER/PROPH/DIAG INJ SC/IM Reviewed 06/06/2013 12:00 AM MUSCLE TEST 2 LIMBS Reviewed 06/06/2013 12:00 AM Nerve conduction studies with F-wave Reviewed 08/26/2013 12:00 AM MAMMOGRAM SCREENING Reviewed 08/26/2013 12:00 AM MAMMOGRAM SCREENING Reviewed 08/30/2013 12:00 AM THER/PROPH/DIAG INJ SC/IM Reviewed 08/30/2013 12:00 AM Decadron, Per 1 Mg [place]# [address]-04 Reviewed 08/30/2013 12:00 AM Depo-Medrol, Per 80 Mg [facility]#5059-2057-52 Reviewed 11/17/2013 12:00 AM THER/PROPH/DIAG INJ SC/IM Reviewed 11/17/2013 12:00 AM Decadron, Per 1 Mg [facility]# [address]-54 Reviewed 11/17/2013 12:00 AM Depo-Medrol 40mg Reviewed 01/06/2014 12:00 AM THER/PROPH/DIAG INJ SC/IM Reviewed 01/06/2014 12:00 AM Decadron, Per 1 Mg [facility]# [address]-37 Reviewed 01/06/2014 12:00 AM Rocephin 1 gram [facility]#9912-7898-52 Reviewed 01/10/2014 12:00 AM OFFICE/OUTPATIENT VISIT EST [...] AM Decadron, Per 1 Mg [facility]# [address]-39 Reviewed 10/12/2014 12:00 AM Depo-Medrol 40mg Reviewed [...] CVX Influenza 03/02/2013 sanofi pasteur PMC Fluzone [id number] Intramuscular Left Deltoid 03/02/2013 12/17/2012 141 X 02/28/2014 Merck & Co., Inc. MSD Pneumovax 23 [id number] Intramuscular Left Deltoid 02/28/2014 02/27/2009 33 Influenza 03/23/2015 sanofi pasteur PMC Fluzone Quadrivalent [id number] Intramuscular Right Deltoid 03/23/2015 12/29/2014 140 Influenza 03/04/2016 sanofi pasteur PMC Fluzone Quadrivalent UI [id number] [id number] Intramuscular Left Deltoid 03/04/2016 12/29/2014 141 Tdap 02/20/2017 [employer] SKB BOOSTRIX [id number] Intramuscular Right Arm 02/20/2017 07/18/2014 115 Influenza 02/20/2017 [facility] Fluzone Quadrivalent [id number] Intramuscular Left Arm 02/20/2017 12/29/2014 150 History [...] Number Start Date [employer] [place] [id number] N/A [employer] [place] [id number] Saturday, 2011 [employer] [place] [id number] N/A [employer] [place] [id number] Thursday, 2013 UMR UMR [id number] N/A [employer] [id number] N/A [employer] [place] [id number] N/A Res Care ResCare [id number] N/A [employer] [id number] N/A Res Care ResCare [id number] DOI [id number] May [employer]BS [employer] [place] [id number] N/A History of Encounters Visit Date Visit Type Provider 05/22/2017 Office visit Chelsea Rodríguez APRN 02/20/2017 Office visit Chelsea Rodríguez REHABILITATION WORKER 02/10/2017 Office visit Jeremy West DO 01/31/2017 Office visit Dimitri Beebe NP 11/20/2016 Office visit Chelsea Rodríguez REHABILITATION WORKER 08/29/2016 Office visit Chelsea Rodríguez REHABILITATION WORKER 07/31/2016 Office visit Chelsea Rodríguez REHABILITATION WORKER 06/11/2016 Office visit Chelsea Rodríguez REHABILITATION WORKER 06/05/2016 Office visit Leonardo Cowan REHABILITATION WORKER 05/14/2016 Office visit Chelsea Rodríguez REHABILITATION WORKER 05/05/2016 Office visit Leonardo Cowan REHABILITATION WORKER 04/24/2016 Office visit Chelsea Rodríguez REHABILITATION WORKER 04/07/2016 Office visit Chelsea Rodríguez REHABILITATION WORKER 03/04/2016 Office visit Chelsea Rodríguez REHABILITATION WORKER 01/14/2016 Office visit Chelsea Rodríguez REHABILITATION WORKER 01/09/2016 Office visit Leonardo Cowan REHABILITATION WORKER 01/04/2016 Office visit Leonardo Cowan REHABILITATION WORKER 11/27/2015 Office visit Chelsea Rodríguez REHABILITATION WORKER 08/23/2015 Office visit Chelsea Rodríguez REHABILITATION WORKER 07/19/2015 Office visit 07/19/2015 Office visit Chelsea Rodríguez REHABILITATION WORKER 06/21/2015 Office visit Chelsea Rodríguez REHABILITATION WORKER 05/03/2015 Nurse visit Adela Cole VP SOFTWARE ENGINEERING 04/12/2015 Office visit Adela Cole VP SOFTWARE ENGINEERING 03/23/2015 Office visit Chelsea Rodríguez REHABILITATION WORKER 03/08/2015 Office visit Adela Cole VP SOFTWARE ENGINEERING 02/14/2015 Office visit Leonardo Pazran REHABILITATION WORKER 02/08/2015 Office visit Adela PITTMANP 02/07/2015 Office visit Leonardo Cowan REHABILITATION WORKER 01/11/2015 Office visit Adela PITTMANP 12/28/2014 Office visit Chelsea Rodríguez REHABILITATION WORKER 12/14/2014 Nurse visit Adela PITTMANP 11/23/2014 Nurse visit Adela PITTMANP 10/26/2014 Office visit Adela PITTMANP 10/12/2014 Office visit 10/12/2014 Office visit Chelsea Rodríguez REHABILITATION WORKER 10/05/2014 Nurse visit Adela PITTMANP 09/07/2014 Office visit Adela PITTMANP 08/17/2014 Office visit 08/17/2014 Office visit 08/17/2014 Office visit Chelsea Rodríguez REHABILITATION WORKER 08/14/2014 Office visit Adela PITTMANP 07/27/2014 Office visit Adela PITTMANP 2014 Office visit Adela PITTMANP 2014 Office visit Mica Lr REHABILITATION WORKER 06/28/2014 Nurse visit Adela PITTMANP 05/31/2014 Office visit Adela PITTMANP 05/03/2014 Voided Adela PITTMANP 04/26/2014 Office visit Mica Lr REHABILITATION WORKER 04/05/2014 Office visit Adela PITTMANP 03/10/2014 Office visit Adela PITTMANP 02/28/2014 Office visit Mica Lr REHABILITATION WORKER 02/24/2014 Office visit Adela PITTMANP 02/06/2014 Office visit Adela PITTMANP 01/10/2014 Nurse visit Suzan Liang MD 01/06/2014 Office visit Mica Lr REHABILITATION WORKER 12/15/2013 Office visit Adela Cole VP SOFTWARE ENGINEERING 11/17/2013 Office visit Chelsea Marcos REHABILITATION WORKER 11/17/2013 Office visit Adela Cole VP SOFTWARE ENGINEERING 10/20/2013 Office visit Adela Cole VP SOFTWARE ENGINEERING 09/22/2013 Office visit Adela Cole VP SOFTWARE ENGINEERING 08/30/2013 Office visit Chelsea Marcos REHABILITATION WORKER 08/26/2013 Office visit Beti Reyna REHABILITATION WORKER 07/29/2013 Office visit Adela Cole VP SOFTWARE ENGINEERING 07/06/2013 [facility] Elmira Campbell MD 07/01/2013 Office visit Adela Cole VP SOFTWARE ENGINEERING 06/06/2013 Office visit Adela Cole VP SOFTWARE ENGINEERING 05/31/2013 Office visit Chelsea Rodríguez REHABILITATION WORKER 05/11/2013 Office visit Adela Cole VP SOFTWARE ENGINEERING 03/22/2013 Office visit Adela Cole VP SOFTWARE ENGINEERING 03/10/2013 Office visit Adela Cole VP SOFTWARE ENGINEERING 03/04/2013 Office visit Adela PITTMANP 03/02/2013 Office visit Odette Elam MD 02/22/2013 Office visit Adela PITTMANP 01/28/2013 Office visit Chelsea Rodríguez REHABILITATION WORKER 01/25/2013 Office visit Adela PITTMANP 12/27/2012 Office visit Adela PITTMANP 12/07/2012 [facility] Pablo Croft MD 11/24/2012 Office visit Pablo Croft MD 11/02/2012 Office visit Kylah Wright REHABILITATION WORKER 11/02/2012 Office visit Mica Lr REHABILITATION WORKER 10/05/2012 [facility] Pablo Croft MD 09/30/2012 Office visit Kylah Wright REHABILITATION WORKER 09/01/2012 Office visit Kylah Wright REHABILITATION WORKER 07/21/2012 Office visit Odette Elam MD 06/16/2012 Office visit Pablo Croft MD 05/11/2012 [facility] Pablo Croft MD 04/28/2012 Office visit [...]
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
== END 2018-02-14 11:30 | disposition home or self-care (01) ==
LOC: EDUNIT# 10:20 → ER 10:21
DX: R09.81 Nasal congestion (principal)
CPT/HCPCS: 70486; 96372

== ENCOUNTER → 2018-09-16 | Outpatient (CLI) | payer BC ==
[~2018-09-16] MED LIST changes: +PSEU-137 PO
[2018-09-16 16:32] LABS: AMPHETAMINE SCREEN, URINE NEGATIVE (NEGATIVE); BARBITURATE SCREEN URINE NEGATIVE (NEGATIVE); BENZODIAZEPINES SCREEN URINE POSITIVE (NEGATIVE); CANNABINOID SCREEN, URINE NEGATIVE (NEGATIVE); COCAINE SCREEN URINE NEGATIVE (NEGATIVE); METHADONE STAT NEGATIVE (NEGATIVE); METHAMPHETAMINE SCREEN URINE S NEGATIVE (NEGATIVE); OPIATE SCREEN URINE POSITIVE (NEGATIVE); OXYCODONE STAT NEGATIVE (NEGATIVE); PROPOXYPHENE STAT NEGATIVE (NEGATIVE); TRICYCLIC ANTIDEPRESSANTS SCRE NEGATIVE (NEGATIVE)
== END ==
LOC: LAB 16:07
PROVIDERS: ATTEND Family Medicine
DX: Z51.81 Encounter for therapeutic drug level monitoring (principal); Z79.891 Long term (current) use of opiate analgesic; Z79.899 Other long term (current) drug therapy
CPT/HCPCS: 80306

== ENCOUNTER → 2019-05-16 | Outpatient (CLI) | payer BC ==
[2019-05-16 17:06] LABS: HEMOGLOBIN 13.9 G/DL (11.5-16.0); MEAN PLATELET VOLUME 8.8 FL (7.4-10.4); RED CELL DISTRIBUTION WIDTH 12.3 % (10.0-14.5); WHITE BLOOD COUNT 9.8 10^3/uL (4.3-11.0)
== END ==
LOC: LAB 16:54
PROVIDERS: ATTEND Family Medicine
DX: K30 Functional dyspepsia (principal)
CPT/HCPCS: 36415; 82607; 85027

== ENCOUNTER → 2019-06-28 | Outpatient (CLI) | payer BC ==
--- NOTE | 2019-06-29 09:14 | Diagnostic Imaging Report ---
INDICATION: Routine screening. Comparison is made with prior mammogram 07/17/2017 and 07/31/2016. 2-D and 3-D bilateral screening mammography was performed with CAD. Both breasts are heterogeneously dense, limiting the sensitivity of mammography. A lobulated masslike density in the medial left breast mid depth appears stable. No new mass or malignant appearing microcalcifications are seen. There are benign calcifications noted. Axillae are unremarkable. IMPRESSION: BI-RADS Category 2 No mammographic features suspicious for malignancy are identified. ACR BI-RADS Category 2: Benign findings. Result letter will be mailed to the patient. Note: At least 10% of breast cancer is not imaged by mammography. Dictated by: Dictated on workstation # [id number]
== END ==
LOC: RAD 12:49
PROVIDERS: ATTEND Family Medicine
DX: Z12.31 Encounter for screening mammogram for malignant neoplasm of breast (principal)
CPT/HCPCS: 77067

== ENCOUNTER 2020-02-01 13:29 | Emergency (ER) | payer BC, OTHER ==
[~2020-02-01] VITALS: Ht 172.7 cm; Wt 80.1 kg
--- NOTE | 2020-02-01 15:33 | Diagnostic Imaging Report ---
INDICATION: Chest pain COMPARISON: None. FINDINGS: Single frontal view of the chest demonstrates normal heart size and pulmonary vascularity. The lungs show minimal scarring and/or atelectasis within the left base, but are otherwise clear. No large pleural effusion or pneumothorax is seen. The visualized osseous structures show no acute abnormalities. IMPRESSION: 1. No acute cardiopulmonary process. Dictated by: Dictated on workstation # [id number]
[2020-02-01 15:41] LABS: BILIRUBIN,URINE NEGATIVE (NEGATIVE); CLARITY,URINE CLEAR; COLOR,URINE DARK YELLOW; GLUCOSE, URINE (UA) NEGATIVE (NEGATIVE); KETONES,URINE TRACE (NEGATIVE); LEUKOCYTE ESTERASE ,URINE NEGATIVE (NEGATIVE); NITRITE,URINE NEGATIVE (NEGATIVE); PROTEIN,URINE TRACE (NEGATIVE)
[2020-02-01 15:47] LABS: BASOPHILS % (AUTO) 0 % (0-10); EOSINOPHILS # (AUTO) 0.3 10^3/uL (0.0-0.3); EOSINOPHILS % (AUTO) 3 % (0-10); HEMATOCRIT 43 % (35-52); HEMOGLOBIN 14.4 G/DL (11.5-16.0); LYMPHOCYTES # (AUTO) 4.3 X 10^3 (1.0-4.0); LYMPHOCYTES % (AUTO) 48 % (12-44); MEAN CORPUSCULAR HEMOGLOBIN 30 PG (25-34); MEAN CORPUSCULAR HGB CONC 34 G/DL (32-36); MEAN CORPUSCULAR VOLUME 88 FL (80-99); MEAN PLATELET VOLUME 9.2 FL (7.4-10.4); MONOCYTES # (AUTO) 0.6 X 10^3 (0.0-1.0); MONOCYTES % (AUTO) 7 % (0-12); NEUTROPHILS # (AUTO) 3.7 X 10^3 (1.8-7.8); NEUTROPHILS % (AUTO) 41 % (42-75); PLATELET COUNT 355 10^3/uL (130-400)
[2020-02-01 16:05] LABS: BACTERIA,URINE FEW /HPF; URIC ACID CRYSTALS,URINE MODERATE /LPF
--- NOTE | 2020-02-01 16:09 | ED General ---
General Chief Complaint: General Problems/Pain Stated Complaint: EXHAUSTION Nursing Triage Note: Patient ambulated in to ER with c/o exhaustion and sleep deprivation. Thursday at work she noticed some disorientation when working on the computer and it still is continuing today. Nursing Sepsis Screen: No Definite Risk Source of Information: Patient Exam Limitations: No Limitations History of Present Illness Date Seen by Provider: Feb 01, 2020 Time Seen by Provider: 15:19 Allergies and Home Medications Allergies Coded Allergies: NKANo Known Allergies (Verified Allergy, Unknown, 09/14/05) Home Medications Fluoxetine Hcl 40 Mg Capsule, 1 EACH PO DAILY, (Reported) Hydrocodone Bit/Acetaminophen 1 Tab Tablet, 1 EACH PO Q 4 - 6 HRS PRN Prescribed by: WING LOPEZ MD on 09/03/09 1301 Hydrocodone Bit/Acetaminophen 1 Each Capsule, 2 EACH PO Q6HR PRN Prescribed by: KADI ARMANDO on 01/03/10 2133 Hydromorphone Hcl 4 Mg Tab, 1 TAB PO PRN Prescribed by: VERO MUELLER on 10/21/11 1349 Meloxicam 15 Mg Tablet, 1 EACH PO DAILY, (Reported) Pseudoephedrine HCl 30 Mg Tablet, 30 MG PO Q4H PRN for CONGESTION Prescribed by: AD AYALA on 02/14/18 1123 Tramadol Hcl 50 Mg Tablet, 50 MG PO QID PRN, (Reported) Past Sxouhpu-Rrpfdq-Xymnzr Hx Patient Social History Alcohol Use: Denies Use Recreational Drug Use: No Smoking Status: Never a Smoker 2nd Hand Smoke Exposure: No Recent Foreign Travel: No Contact w/Someone Who Travel: No Recent Infectious Disease Expo: No Recent Hopitalizations: No Physical Abuse: No Sexual Abuse: No Mistreated: No Fear: No Immunizations Up To Date Tetanus Booster (TDap): Less than 5yrs Seasonal Allergies Seasonal Allergies: No Past Medical History Surgeries: Yes Appendectomy, Gallbladder, Hysterectomy Respiratory: No Cardiac: No Neurological: No Reproductive Disorders: Yes Genitourinary: No Gastrointestinal: No Musculoskeletal: No Endocrine: No HEENT: No Cancer: No Psychosocial: No Integumentary: No Blood Disorders: No Physical Exam Vital Signs Vital Signs - First Documented 02/01/20 14:41 Temp 36.6 Pulse 103 B/P (MAP) 114/75 (88) Pulse Ox 95 O2 Delivery Room Air Capillary Refill : NONE Height, Weight, BMI Height: 5'10.00" Weight: 150lbs. 0.0oz. 68.328837wh; 26.00 BMI Method:Stated Progress/Results/Core Measures Suspected Sepsis Recent Fever Within 48 Hours: No Infection Criteria Present: None New/Unexplained Altered Menta: No Sepsis Screen: No Definite Risk SIRS Temperature: Pulse: 103 Respiratory Rate: Laboratory Tests 02/01/20 15:40: White Blood Count 9.0 Blood Pressure 114 /75 Mean: 88 Laboratory Tests 02/01/20 15:40: Creatinine 1.13, Platelet Count 355, Total Bilirubin 0.7 Results/Orders Lab Results Laboratory Tests Test 02/01/20 15:32 02/01/20 15:40 Range/Units Urine Color DARK YELLOW Urine Clarity CLEAR Urine pH 5.0 5-9 Urine Specific [place] >=1.030 1.016-1.022 Urine Protein TRACE H NEGATIVE Urine Glucose (UA) NEGATIVE NEGATIVE Urine Ketones TRACE H NEGATIVE Urine Nitrite NEGATIVE NEGATIVE Urine Bilirubin NEGATIVE NEGATIVE Urine Urobilinogen 0.2 < = 1.0 MG/DL Urine Leukocyte Esterase NEGATIVE NEGATIVE Urine RBC (Auto) NEGATIVE NEGATIVE Urine RBC NONE /HPF Urine WBC NONE /HPF Urine Crystals PRESENT H /LPF Urine Uric Acid Crystals MODERATE H /LPF Urine Bacteria FEW H /HPF Urine Casts NONE /LPF Urine Mucus NEGATIVE /LPF Urine Culture Indicated NO White Blood Count 9.0 4.3-11.0 10^3/uL Red Blood Count 4.87 4.35-5.85 10^6/uL Hemoglobin 14.4 11.5-16.0 G/DL Hematocrit 43 35-52 % Mean Corpuscular Volume 88 80-99 FL Mean Corpuscular Hemoglobin 30 25-34 PG Mean Corpuscular Hemoglobin Concent 34 32-36 G/DL Red Cell Distribution Width 12.3 10.0-14.5 % Platelet Count 355 130-400 10^3/uL Mean Platelet Volume 9.2 7.4-10.4 FL Neutrophils (%) (Auto) 41 L 42-75 % Lymphocytes (%) (Auto) 48 H 12-44 % Monocytes (%) (Auto) 7 0-12 % Eosinophils (%) (Auto) 3 0-10 % Basophils (%) (Auto) 0 0-10 % Neutrophils # (Auto) 3.7 1.8-7.8 X 10^3 Lymphocytes # (Auto) 4.3 H 1.0-4.0 X 10^3 Monocytes # (Auto) 0.6 0.0-1.0 X 10^3 Eosinophils # (Auto) 0.3 0.0-0.3 10^3/uL Basophils # (Auto) 0.0 0.0-0.1 10^3/uL Sodium Level 137 135-145 MMOL/L Potassium Level 3.6 3.6-5.0 MMOL/L Chloride Level 101 98-107 MMOL/L Carbon Dioxide Level 23 21-32 MMOL/L Anion Gap 13 5-14 MMOL/L Blood Urea Nitrogen 15 7-18 MG/DL Creatinine 1.13 0.60-1.30 MG/DL Estimat Glomerular Filtration Rate 51 BUN/Creatinine Ratio 13 Glucose Level 92 70-105 MG/DL Calcium Level 9.8 8.5-10.1 MG/DL Corrected Calcium 9.4 8.5-10.1 MG/DL Total Bilirubin 0.7 0.1-1.0 MG/DL Aspartate Amino Transf (AST/SGOT) 27 5-34 U/L Alanine Aminotransferase (ALT/SGPT) 20 0-55 U/L Alkaline Phosphatase 73 40-136 U/L Troponin I < 0.028 <0.028 NG/ML Total Protein 7.6 6.4-8.2 GM/DL Albumin 4.5 3.2-4.5 GM/DL My Orders Orders - JASON GAMBLE Comprehensive Metabolic Panel (02/01/20 15:19) Ua Culture If Indicated (02/01/20 15:19) Ed Iv/Invasive Line Start (02/01/20 15:19) Cbc With Automated Diff (02/01/20 15:19) Troponin I (02/01/20 15:19) Chest 1 View, Ap/Pa Only (02/01/20 15:19) Ekg Tracing (02/01/20 15:19) Monitor-Rhythm Ecg Trace Only (02/01/20 15:19) Vital Signs/I&O 02/01/20 14:41 Temp 36.6 Pulse 103 B/P (MAP) 114/75 (88) Pulse Ox 95 O2 Delivery Room Air Capillary Refill : NONE Blood Pressure Mean: 88 Departure Impression Primary Impression: Insomnia Additional Impression: Fatigue Disposition: 01 HOME, SELF-CARE Condition: Stable/Unchanged Departure-Patient Inst. Decision time for Depature: 16:42 Referrals: DUNIA YU DO (PCP/Family) Primary Care Physician Patient Instructions: Insomnia (DC) Add. Discharge Instructions: You may use Benadryl in addition to your prescribed sleep medication. Follow-up with your primary care provider within 1 week for recheck. Return back to the emergency room for worsening symptoms or concerns as needed. All discharge instructions reviewed with patient and/or family. Voiced understanding. Work/School Note: Work Release Form Date Seen in the Emergency Department: Feb 01, 2020 Return to Work: Feb 06, 2020 Restrictions: No Restrictions JASON GAMBLE Feb 01, 2020 16:09
[2020-02-01 16:17] LABS: ALANINE AMINOTRANSFERASE 20 U/L (0-55); ALBUMIN 4.5 GM/DL (3.2-4.5); ALKALINE PHOSPHATASE 73 U/L (40-136); BILIRUBIN,TOTAL 0.7 MG/DL (0.1-1.0); BUN/CREATININE RATIO 13; CALCIUM 9.8 MG/DL (8.5-10.1); CARBON DIOXIDE 23 MMOL/L (21-32); CHLORIDE 101 MMOL/L (98-107); CREATININE SERUM 1.13 MG/DL (0.60-1.30); GFR ESTIMATED 51; GLUCOSE 92 MG/DL (70-105); POTASSIUM 3.6 MMOL/L (3.6-5.0); SODIUM 137 MMOL/L (135-145); TOTAL PROTEIN 7.6 GM/DL (6.4-8.2)
[2020-02-01 17:00] VITALS: BP 112/89
== END 2020-02-01 16:55 | disposition home or self-care (01) ==
LOC: EDUNIT# 13:29 → ER 13:30
DX: G47.00 Insomnia, unspecified (principal); R53.83 Other fatigue
CPT/HCPCS: 36415; 71045; 80053; 81000; 84484; 85025; 93005

== ENCOUNTER → 2020-03-16 | Outpatient (CLI) | payer OTHER ==
--- NOTE | 2020-03-16 12:39 | Diagnostic Imaging Report ---
PROCEDURE: MRI lumbar spine. TECHNIQUE: Multiplanar, multisequence MRI of the lumbar spine was performed without contrast. INDICATION: Low back pain. COMPARISON: No prior studies are available for comparison. FINDINGS: Curvature of the lumbar spine is normal. There is minimal retrolisthesis of L2 on L3 and L3 on L4 as well as L5 on S1. The vertebral body heights are maintained. Marrow signal intensity is unremarkable. No geographic marrow lesion is detected. There is multilevel degenerative disc disease with mild disc space narrowing and desiccation from the L2-L3 through L5-S1 levels. There are Modic changes involving the endplates at the L5-S1 level. Conus is unremarkable at the L1-L2 level. T12-L1: The central canal and neuroforamina are widely patent. L1-L2: Central canal and neuroforamina are widely patent. L2-L3: There is some ligamentous thickening and facet changes. Central canal is widely patent. Neuroforamina appear patent. L3-L4: There is ligamentous thickening and facet changes with broad-based disc/osteophyte complex indenting the ventral thecal sac. There is izdj-vn-bdogyxnm narrowing of the central canal. There is also significant narrowing of the bilateral lateral recesses with moderate bilateral neuroforaminal stenosis. L4-L5 level demonstrates ligamentous thickening and facet changes with broad-based disc/osteophyte complex indenting the ventral thecal sac. Central canal is patent but there is significant narrowing of bilateral lateral recesses. Mild bilateral neuroforaminal stenosis is noted. L5-S1: Ligamentous thickening and facet changes with broad-based disc/osteophyte complex creates moderate trefoil narrowing of the central canal. There is significant narrowing of the lateral recesses bilaterally. There is also significant bilateral neuroforaminal stenosis. Paraspinous tissues are unremarkable. IMPRESSION: Multilevel lumbar spondylosis with multilevel central canal, lateral recess, and neuroforaminal stenosis, described level by level above. No acute compression fracture is detected. Dictated by: Dictated on workstation # [id number]
== END ==
LOC: RAD 10:15
PROVIDERS: ATTEND Family Medicine
DX: M47.816 Spondylosis without myelopathy or radiculopathy, lumbar region (principal); M47.817 Spondylosis without myelopathy or radiculopathy, lumbosacral region; M51.36 Other intervertebral disc degeneration, lumbar region; M51.37 Other intervertebral disc degeneration, lumbosacral region; M43.16 Spondylolisthesis, lumbar region; M43.17 Spondylolisthesis, lumbosacral region; M48.061 Spinal stenosis, lumbar region without neurogenic claudication; M48.07 Spinal stenosis, lumbosacral region
CPT/HCPCS: 72148

== ENCOUNTER → 2020-10-08 | Outpatient (CLI) | payer BC, OTHER ==
[2020-10-08 12:29] LABS: HEMATOCRIT 46 % (35-52); HEMOGLOBIN 15.5 g/dL (11.5-16.0); MEAN CORPUSCULAR HEMOGLOBIN 30 pg (25-34); MEAN CORPUSCULAR HGB CONC 34 g/dL (32-36); MEAN CORPUSCULAR VOLUME 89 fL (80-99); PLATELET COUNT 445 10^3/uL (130-400); WHITE BLOOD COUNT 10.2 10^3/uL (4.3-11.0)
[2020-10-08 13:01] LABS: ALANINE AMINOTRANSFERASE 18 U/L (0-55); ALBUMIN 4.5 GM/DL (3.2-4.5); ALKALINE PHOSPHATASE 80 U/L (40-136); BILIRUBIN,TOTAL 0.5 MG/DL (0.1-1.0); BUN/CREATININE RATIO 16; CALCIUM 10.2 MG/DL (8.5-10.1); CARBON DIOXIDE 23 MMOL/L (21-32); CHLORIDE 102 MMOL/L (98-107); CHOLESTEROL 234 MG/DL (< 200); CREATININE SERUM 0.88 MG/DL (0.60-1.30); GFR ESTIMATED > 60; GLUCOSE 106 MG/DL (70-105); HDL CHOLESTEROL 76 MG/DL (40-60); POTASSIUM 3.3 MMOL/L (3.6-5.0); SODIUM 137 MMOL/L (135-145); TOTAL PROTEIN 7.5 GM/DL (6.4-8.2); TRIGLYCERIDES 155 MG/DL (<150); VLDL CHOLESTEROL 31 MG/DL (5-40)
== END ==
LOC: CARD 11:52
PROVIDERS: ATTEND Family Medicine
DX: R55 Syncope and collapse (principal); R00.0 Tachycardia, unspecified
CPT/HCPCS: 36415; 80053; 80061; 84443; 85027; 93005

== ENCOUNTER 2020-10-09 08:51 | Emergency (ER) | payer BC ==
[~2020-10-09] VITALS: Ht 172.7 cm; Wt 75.3 kg
[2020-10-09] MEDS ORDERED: LACTATED RINGERS 1,000 ML IV ONE (08:57)
[2020-10-09] MEDS ORDERED: NITROGLYCERIN 0.4 MG SL TABS BTL 25'S SL ONE (08:57)
[2020-10-09] MEDS ORDERED: LACTATED RINGERS 1,000 ML IV STA (09:06)
--- NOTE | 2020-10-09 09:13 | ED Chest Pain ---
General Stated Complaint: CP Source: patient, RN/MD Exam Limitations: no limitations (KADI ARMANDO MD) History of Present Illness Date Seen by Provider: October 09, 2020 Time Seen by Provider: 08:55 Initial Comments Here with report of left-sided chest pain that is in the left upper chest, shoulder, arm and radiates up to the left ear. That started this morning. Has had a few days of weakness and tiredness and has been seen by her primary care doctor. She apparently had a syncopal episode a few days ago. He thought that she may have dehydration as she was orthostatic positive at his office earlier this week and she did have labs drawn after that. Came back today and had the chest pain. She was sent here for further evaluation. He did give her 1 full dose aspirin at the office. Patient denies recent illness but has had some intermittent nausea as well as the weakness and syncopal episode. She feels like her heart goes fluttering a little bit. Describes the pain is moderate and pressure/ache. She has not had anything like this before. Denies family history of heart problems. She did just find out that she has elevated cholesterol level. 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 She has not had Covid vaccination. During falls earlier this week she did have some right hip pain/bruising and tailbone pain. Timing/Duration: getting worse, 2-3 days Severity/Quality: moderate, aching, pressure Location: central Radiation: neck, shoulders, other (Left ear) Activities at Onset: none Prior CP/Workup: no prior chest pain ASA po SOCIAL SECRETARY: Yes NTG SL SOCIAL SECRETARY: No Associated Symptoms: No abdominal pain, No back pain, No diaphoresis, No fever/chills; nausea/vomiting; No shortness of breath; syncope, weakness (KADI ARMANDO MD) Allergies and Home Medications Allergies Coded Allergies: NKANo Known Allergies (Verified Allergy, Unknown, 09/14/05) Home Medications Fluoxetine Hcl 40 Mg Capsule, 1 EACH PO DAILY, (Reported) Hydrocodone Bit/Acetaminophen 1 Tab Tablet, 1 EACH PO Q 4 - 6 HRS PRN Prescribed by: WING LOPEZ MD on 09/03/09 1301 Hydrocodone Bit/Acetaminophen 1 Each Capsule, 2 EACH PO Q6HR PRN Prescribed by: KADI ARMANDO on 01/03/102132 Hydromorphone Hcl 4 Mg Tab, 1 TAB PO PRN Prescribed by: VERO MUELLER on 10/21/11 1349 Meloxicam 15 Mg Tablet, 1 EACH PO DAILY, (Reported) Pseudoephedrine HCl 30 Mg Tablet, 30 MG PO Q4H PRN for CONGESTION Prescribed by: AD AYALA on 02/14/18 1123 Tramadol Hcl 50 Mg Tablet, 50 MG PO QID PRN, (Reported) Patient Home Medication List Home Medication List Reviewed: Yes (KADI ARMANDO MD) Review of Systems Review of Systems Constitutional: see HPI; No chills, No fever EENTM: No Symptoms Reported Respiratory: Denies Cough, Denies Shortness of Air Cardiovascular: Chest Pain, Lightheadedness, Syncope Gastrointestinal: See HPI Genitourinary: No Symptoms Reported Musculoskeletal: joint pain, muscle pain Skin: No change in color, No lesions Psychiatric/Neurological: Headache, Weakness Endocrine: No Symptoms Reported (KADI ARMANDO MD) All Other Systems Reviewed Negative Unless Noted: Yes (KADI ARMANDO MD) Past Cnvxfry-Avbhba-Dhwulp Hx Past Med/Social Hx: Reviewed Nursing Past Med/Soc Hx (KADI ARMANDO MD) Patient Social History Alcohol Use: Occasionally Uses Smoking Status: Never a Smoker 2nd Hand Smoke Exposure: No Recent Hopitalizations: No (KADI ARMANDO MD) Immunizations Up To Date Tetanus Booster (TDap): Less than 5yrs (KADI ARMANDO MD) Seasonal Allergies Seasonal Allergies: No (KADI ARMANDO MD) Past Medical History Surgeries: Yes Appendectomy, Gallbladder, Hysterectomy Respiratory: No Cardiac: No Neurological: No Reproductive Disorders: Yes Genitourinary: No Gastrointestinal: No Musculoskeletal: No Endocrine: No HEENT: No Cancer: No Psychosocial: No Integumentary: No Blood Disorders: No (KADI ARMANDO MD) Family Medical History Reviewed Nursing Family Hx (KADI ARMANDO MD) Physical Exam Vital Signs Vital Signs - First Documented 10/09/20 08:53 Pulse 104 Resp 17 B/P (MAP) 140/104 (116) Pulse Ox 97 O2 Delivery Room Air (DELLA MATA APRN) Vital Signs Capillary Refill : (KADI ARMANDO MD) Height, Weight, BMI Height: 5'10.00" Weight: 150lbs. 0.0oz. 68.737747az; 26.00 BMI Method:Stated General Appearance: No Apparent Distress, WD/WN HEENT: PERRL/EOMI, Pharynx Normal Neck: Non Tender, Supple Respiratory: Lungs Clear, Normal Breath Sounds Cardiovascular: Regular Rate, Rhythm, No Murmur Gastrointestinal: Non Tender, Soft Extremity: Normal Capillary Refill, Normal Inspection, Normal Range of Motion, Non Tender, No Calf Tenderness Neurologic/Psychiatric: Alert, Oriented x3, No Motor/Sensory Deficits, Normal Mood/Affect Skin: Normal Color, Warm/Dry (KADI ARMANDO MD) Progress/Results/Core Measures Results/Orders Lab Results Laboratory Tests Test 10/09/20 09:06 Range/Units White Blood Count 7.4 4.3-11.0 10^3/uL Red Blood Count 4.61 3.80-5.11 10^6/uL Hemoglobin 14.0 11.5-16.0 g/dL Hematocrit 41 35-52 % Mean Corpuscular Volume 90 80-99 fL Mean Corpuscular Hemoglobin 30 25-34 pg Mean Corpuscular Hemoglobin Concent 34 32-36 g/dL Red Cell Distribution Width 11.9 10.0-14.5 % Platelet Count 382 130-400 10^3/uL Mean Platelet Volume 9.0 9.0-12.2 fL Immature Granulocyte % (Auto) 0 % Neutrophils (%) (Auto) 49 42-75 % Lymphocytes (%) (Auto) 40 12-44 % Monocytes (%) (Auto) 9 0-12 % Eosinophils (%) (Auto) 1 0-10 % Basophils (%) (Auto) 1 0-10 % Neutrophils # (Auto) 3.6 1.8-7.8 10^3/uL Lymphocytes # (Auto) 2.9 1.0-4.0 10^3/uL Monocytes # (Auto) 0.7 0.0-1.0 10^3/uL Eosinophils # (Auto) 0.1 0.0-0.3 10^3/uL Basophils # (Auto) 0.0 0.0-0.1 10^3/uL Immature Granulocyte # (Auto) 0.0 0.0-0.1 10^3/uL Prothrombin Time 13.0 12.2-14.7 SEC INR Comment 0.9 0.8-1.4 Activated Partial Thromboplast Time 23 L 24-35 SEC Sodium Level 136 135-145 MMOL/L Potassium Level 3.5 L 3.6-5.0 MMOL/L Chloride Level 99 98-107 MMOL/L Carbon Dioxide Level 27 21-32 MMOL/L Anion Gap 10 5-14 MMOL/L Blood Urea Nitrogen 13 7-18 MG/DL Creatinine 0.82 0.60-1.30 MG/DL Estimat Glomerular Filtration Rate > 60 BUN/Creatinine Ratio 16 Glucose Level 97 70-105 MG/DL Calcium Level 10.0 8.5-10.1 MG/DL Corrected Calcium 9.7 8.5-10.1 MG/DL Magnesium Level 1.9 1.6-2.4 MG/DL Total Bilirubin 0.7 0.1-1.0 MG/DL Aspartate Amino Transf (AST/SGOT) 21 5-34 U/L Alanine Aminotransferase (ALT/SGPT) 18 0-55 U/L Alkaline Phosphatase 73 40-136 U/L Myoglobin 35.2 10.0-92.0 NG/ML Troponin I < 0.028 <0.028 NG/ML Total Protein 7.1 6.4-8.2 GM/DL Albumin 4.4 3.2-4.5 GM/DL (DELLA MATA APRN) My Orders Orders - DELLA MATA APRN Sacrum And Coccyx (10/09/20 09:57) Pelvis With Right Hip 2-3views (10/09/20 09:57) Fentanyl Inj (Sublimaze Injection) (10/09/20 10:00) Troponin I (10/09/20 11:00) (DELLA MATA APRN) Medications Given in ED Current Medications Medications Dose Ordered Sig/Gilberto Route Start Time Stop Time Status Last Admin Dose Admin Fentanyl Citrate 25 mcg ONCE ONCE IVP 10/09/20 10:00 10/09/20 10:01 DC 10/09/20 10:00 25 MCG (DELLA MATA APRN) Vital Signs/I&O 10/09/20 10/09/20 08:53 09:17 Pulse 104 106 103 112 Resp 17 B/P (MAP) 140/104 (116) 131/107 (115) 126/95 (105) 104/85 (91) Pulse Ox 97 O2 Delivery Room Air (DELLA MATA VP SALES) Progress Progress Note : Progress Note Seen and evaluated. Chest pain protocol initiated. Patient has already had aspirin so that was held. We will try nitroglycerin for the chest pain. LR 1 L bolus. Monitor patient. 1145: I have discussed the case with Dr. Yu and he will write outpatient prescription. We are repeating her troponin to ensure that that remains negative. Pain is improved. She did receive fentanyl 50 mcg IV. We did do pelvis and sacrum/coccyx x-rays which were negative. Monitor patient. 1234: I discussed the case with Dr. Sewell and he would happily see her in office as early as tomorrow but next week if the patient prefers. Repeat troponin negative. I did discuss all of this with the patient. She is okay with plan will make appointment. Discharged home with return precautions. Patient verbalized understanding of instructions and agreement with plan. (KADI ARMANDO MD) Initial ECG Impression Date: October 09, 2020 Initial ECG Impression Time: 08:59 Initial ECG Rate: 92 Initial ECG Rhythm: Normal Sinus Comment Sinus rhythm with left atrial abnormality. No evidence of ST elevation NM. Similar to previous of 02/01/2020. Normal axis. Interpreted by me. (KADI ARMANDO MD) Diagnostic Imaging Diagonstic Imaging: Xray Plain Films/CT/US/NM/MRI: chest Comments [facility]. [place], [place] NAME: CHRIS WU Kiera [facility] REC#: [id number] PT STATUS: REG ER : 1965 PHYSICIAN: KADI ARMANDO MD ADMIT DATE: 10/09/20/ER Draft Date of Exam:10/09/20 CHEST 1 VIEW, AP/PA ONLY INDICATION: Chest pain Frontal chest obtained at 0926 a.m. and compared to 02/01/2020. Heart and mediastinal silhouette are normal in appearance. The lungs are clear. There is no pneumothorax or pleural fluid. IMPRESSION: Negative chest. Dictated on workstation # [id number] Dict: 10/09/20924 Trans: 10/09/20 0927 [facility] [id number] Interpreted by: ARMINDA BOSTON MD Electronically signed by: (KADI ARMANDO MD) Diagonstic Imaging: Xray Plain Films/CT/US/NM/MRI: pelvis (right hip ) Comments NAME: CHRIS WU MED REC#: [id number] PT STATUS: REG ER : 1965 PHYSICIAN: DELLA MATA VP SALES ADMIT DATE: 10/09/20/ER Draft Date of Exam:10/09/20 PELVIS WITH RIGHT HIP 2-3VIEWS INDICATION: Fall. Right hip pain EXAMINATION: Pelvis with right hip, 3 views. FINDINGS: The AP pelvis shows the SI joints and pubic symphysis in good alignment. No pelvic fracture. The femoral heads are in normal articulation bilaterally. Two views of the right hip show smooth articulating surfaces of the femoral head. There are no fractures. There is mild sclerosis with some hypertrophic change present as well about the femoral head and acetabula. IMPRESSION: No acute abnormalities. 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 Dictated on workstation # [id number] Dict: 10/09/20 1032 Trans: 10/09/20 1037 [id number] Interpreted by: ATUL DELGADO MD Electronically signed by: Reviewed: Reviewed by Me Diagonstic Imaging: Xray Plain Films/CT/US/NM/MRI: other (Sacrum & Coccyx ) Comments NAME: CHRIS WU MED REC#: [id number] PT STATUS: REG ER : 1965 PHYSICIAN: DELLA MATA VP SALES ADMIT DATE: 10/09/20/ER Draft Date of Exam:10/09/20 SACRUM AND COCCYX INDICATION: Fall, right hip and sacral pain. TECHNIQUE: AP and lateral views of the sacrum and coccyx at 10:30 AM. CORRELATION STUDY: None. FINDINGS: There is generally normal contour about the sacrum and coccyx. No evidence for significant displacement or offset to suggest an acute fracture. Very mild sclerosis of the bilateral SI joints. Partial fusion across the superior aspect of the SI joints is not excluded. There are advanced degenerative changes with significant sclerosis at the L5-S1 level. Calcifications in the pelvis are likely vascular. IMPRESSION: Negative for acute displaced sacrococcygeal fracture. There may be partial fusion across the superior sacroiliac joints. Dictated on workstation # [id number] Dict: 10/09/20 1032 Trans: 10/09/20 1039 [id number] Interpreted by: DRU MOONEY DO Electronically signed by: Reviewed: Reviewed by Me (DELLA MATA APRN) Departure Impression Primary Impression: Chest pain Qualified Codes: R07.9 - Chest pain, unspecified Disposition: HOME, SELF-CARE Condition: Improved Departure-Patient Inst. Decision time for Depature: 12:34 (KADI ARMANDO MD) Referrals: DUNIA YU DO (PCP/Family) Primary Care Physician GOMEZ SEWELL MD [facility] Patient Instructions: Chest Pain (DC) Add. Discharge Instructions: You need to call and make follow-up appointment with Dr. Sewell for recheck and further evaluation related to the chest pain. Continue home medications as previously prescribed. Follow-up with Dr. Yu as scheduled or earlier if needed. Return for worse pain, fever, vomiting, weakness, breathing problems or other concerns as needed. Work/School Note: Work Release Form Date Seen in the Emergency Department: October 09, 2020 Return to Work: October 10, 2020 Restrictions: No Restrictions Copy Copies To 1: DUNIA YU DO Copies To 2: GOMEZ SEWELL MD [facility] KADI ARMANDO MD October 09, 2020 09:13 DELLA MATA APRN October 09, 2020 10:45
[2020-10-09] MEDS ORDERED: NITROGLYCERIN 0.4 MG SL TABS BTL 25'S SL PRN (09:15)
[2020-10-09 09:17] VITALS: BP_SYST 104; BP_SYST 126; BP_SYST 131; BP_DIAS 107; BP_DIAS 85; BP_DIAS 95
[2020-10-09 09:17] LABS: BASOPHILS % (AUTO) 1 % (0-10); EOSINOPHILS # (AUTO) 0.1 10^3/uL (0.0-0.3); EOSINOPHILS % (AUTO) 1 % (0-10); HEMATOCRIT 41 % (35-52); LYMPHOCYTES # (AUTO) 2.9 10^3/uL (1.0-4.0); LYMPHOCYTES % (AUTO) 40 % (12-44); MEAN CORPUSCULAR HEMOGLOBIN 30 pg (25-34); MEAN CORPUSCULAR HGB CONC 34 g/dL (32-36); MEAN CORPUSCULAR VOLUME 90 fL (80-99); MONOCYTES # (AUTO) 0.7 10^3/uL (0.0-1.0); MONOCYTES % (AUTO) 9 % (0-12); NEUTROPHILS # (AUTO) 3.6 10^3/uL (1.8-7.8); NEUTROPHILS % (AUTO) 49 % (42-75); PLATELET COUNT 382 10^3/uL (130-400); WHITE BLOOD COUNT 7.4 10^3/uL (4.3-11.0)
--- NOTE | 2020-10-09 09:28 | Diagnostic Imaging Report ---
INDICATION: Chest pain Frontal chest obtained at 0926 a.m. and compared to 02/01/2020. Heart and mediastinal silhouette are normal in appearance. The lungs are clear. There is no pneumothorax or pleural fluid. IMPRESSION: Negative chest. Dictated by: Dictated on workstation # [id number]
[2020-10-09 09:29] LABS: ALBUMIN 4.4 GM/DL (3.2-4.5); CHLORIDE 99 MMOL/L (98-107); POTASSIUM 3.5 MMOL/L (3.6-5.0); SODIUM 136 MMOL/L (135-145)
[2020-10-09 09:32] LABS: GLUCOSE 97 MG/DL (70-105); INR 0.9 (0.8-1.4); TOTAL PROTEIN 7.1 GM/DL (6.4-8.2)
[2020-10-09 09:33] LABS: BILIRUBIN,TOTAL 0.7 MG/DL (0.1-1.0); CARBON DIOXIDE 27 MMOL/L (21-32)
[2020-10-09 09:35] LABS: ALKALINE PHOSPHATASE 73 U/L (40-136); CREATININE SERUM 0.82 MG/DL (0.60-1.30); GFR ESTIMATED > 60
[2020-10-09 09:36] LABS: BUN/CREATININE RATIO 16
[2020-10-09 09:38] LABS: ALANINE AMINOTRANSFERASE 18 U/L (0-55); MAGNESIUM 1.9 MG/DL (1.6-2.4)
[2020-10-09] MEDS ORDERED: fentaNYL INJ 100 MCG/2 ML AMP IVP ONE (10:00)
--- NOTE | 2020-10-09 10:38 | Diagnostic Imaging Report ---
INDICATION: Fall. Right hip pain EXAMINATION: Pelvis with right hip, 3 views. FINDINGS: The AP pelvis shows the SI joints and pubic symphysis in good alignment. No pelvic fracture. The femoral heads are in normal articulation bilaterally. Two views of the right hip show smooth articulating surfaces of the femoral head. There are no fractures. There is mild sclerosis with some hypertrophic change present as well about the femoral head and acetabula. IMPRESSION: No acute abnormalities. 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 Dictated by: Dictated on workstation # [id number]
--- NOTE | 2020-10-09 10:39 | Diagnostic Imaging Report ---
INDICATION: Fall, right hip and sacral pain. TECHNIQUE: AP and lateral views of the sacrum and coccyx at 10:30 AM. CORRELATION STUDY: None. FINDINGS: There is generally normal contour about the sacrum and coccyx. No evidence for significant displacement or offset to suggest an acute fracture. Very mild sclerosis of the bilateral SI joints. Partial fusion across the superior aspect of the SI joints is not excluded. There are advanced degenerative changes with significant sclerosis at the L5-S1 level. Calcifications in the pelvis are likely vascular. IMPRESSION: Negative for acute displaced sacrococcygeal fracture. There may be partial fusion across the superior sacroiliac joints. Dictated by: Dictated on workstation # [id number]
[2020-10-09 12:46] VITALS: BP 122/88
== END 2020-10-09 12:46 | disposition home or self-care (01) ==
LOC: EDUNIT# 08:51 → ER 08:52
DX: R07.9 Chest pain, unspecified (principal); M25.551 Pain in right hip
CPT/HCPCS: 36415; 71045; 72220; 80053; 83735; 83874; 84484; 85025; 85379; 85610; 85730; 93005; 93041

== ENCOUNTER → 2020-10-30 | Outpatient (CLI) | payer BC ==
[~2020-10-30] MED LIST changes: +CATHETER FLUSH 10 ML SYR IV PRN; +REGADENOSON 0.4 MG/5 ML SYR (LEXISCAN) IV ONE
[2020-10-30 11:59] VITALS: BP 131/96
--- NOTE | 2020-10-30 16:37 | STRESS TEST ---
DATE OF SERVICE: 10/30/2020 RESTING AND POST REGADENOSON TECHNETIUM-99M TETROFOSMIN SPECT CT IMAGING ORDERING PHYSICIAN: Dr. Sewell. PRIMARY PHYSICIAN: Dr. Salmeron. CLINICAL DIAGNOSIS: Chest discomfort. Baseline images were carried out after injection of 10.91 mCi of technetium-99m Tetrofosmin. This was followed by 0.4 mg regadenoson and 32 mCi of technetium-99m Tetrofosmin for stress imaging. The electrocardiogram showed sinus rhythm at baseline. It did not change significantly with the regadenoson infusion. There was nonspecific ST abnormality at baseline. The electrocardiogram remained unchanged. Review of images at rest and following stress does not indicate any significant perfusion defects consistent with myocardial ischemia or infarction. Gated images show normal global left ventricular systolic function with normal regional wall motion. Left ventricular ejection fraction is calculated to be 67%. Left ventricular end diastolic volume is 53 mL. TID is absent (1.12). CONCLUSIONS: 1. No evidence of any significant myocardial ischemia or infarction. 2. Normal regional wall motion. 3. Normal global left ventricular systolic function with a calculated ejection fraction of 67%. Job ID: [id number] DocumentID: [id number] Dictated Date: 10/30/2020 15:50:24 Administrative Support Clerk Date: 10/30/2020 16:36:19 Dictated By: GOMEZ SEWELL MD, MA, FACP, FACC,
== END ==
LOC: CARD 10:30
PROVIDERS: ATTEND Internal Medicine Cardiovascular Disease
DX: R07.89 Other chest pain (principal); R55 Syncope and collapse
CPT/HCPCS: 78452; 93017; 93225; 93226; 93306; A9502

== ENCOUNTER → 2020-11-06 | Day surgery (SDC) | payer BC ==
[~2020-11-06] VITALS: Ht 175.3 cm; Wt 76.0 kg
[~2020-11-06] MED LIST changes: -CATHETER FLUSH 10 ML SYR IV PRN; +LIDOCAINE 1% INJ 20 ML 20 ML VIAL ONE; -REGADENOSON 0.4 MG/5 ML SYR (LEXISCAN) IV ONE
[2020-11-06 12:32] VITALS: BP 131/100
--- NOTE | 2020-11-06 17:27 | OPERATIVE REPORT ---
DATE OF SERVICE: 11/06/2020 PREOPERATIVE DIAGNOSIS: Syncope. POSTOPERATIVE DIAGNOSIS: Syncope. PROCEDURE PERFORMED: Implantable loop recorder implantation. INDICATIONS FOR PROCEDURE: The patient is a 55-year-old lady, who has been experiencing infrequent syncope. Implantable loop recorder implantation was carried out after having obtained an informed consent. DESCRIPTION OF PROCEDURE: [facility] The left prepectoral area was prepared and draped in the usual sterile fashion. Lidocaine 1% was used for local anesthesia. The tools provided were the [employer] Reveal LINQ device used to make a subcutaneous pocket anterior to the fourth intercostal space into which the device was placed and the wound edges were closed using Dermabond and Steri-Strips. The serial number of the device is [id number]. Job ID: [id number] DocumentID: [id number] Dictated Date: 11/06/2020 13:07:37 General Milling Superintendent Date: 11/06/2020 17:26:21 Dictated By: GOMEZ VALDES MD, MA, FACP, FACC,
== END ==
LOC: CATH 11:54
PROVIDERS: ATTEND Internal Medicine Cardiovascular Disease
DX: R55 Syncope and collapse (principal); R00.2 Palpitations; I47.1 Supraventricular tachycardia; R07.89 Other chest pain; Z79.891 Long term (current) use of opiate analgesic; Z79.899 Other long term (current) drug therapy; Z87.891 Personal history of nicotine dependence; Z90.89 Acquired absence of other organs; Z90.710 Acquired absence of both cervix and uterus; Z90.49 Acquired absence of other specified parts of digestive tract; Z80.9 Family history of malignant neoplasm, unspecified
CPT/HCPCS: 33285; C1764

== ENCOUNTER 2022-09-21 21:05 | Inpatient (IN) | payer BC ==
[~2022-09-21] VITALS: Ht 177 cm; Wt 74.2 kg
[~2022-09-21 21:05] MED LIST changes: -LIDOCAINE 1% INJ 20 ML 20 ML VIAL ONE; -PSEU-137 PO; +PSEU-182 PO
[2022-09-21] MEDS ORDERED: fentaNYL INJ 100 MCG/2 ML AMP IVP STA (21:18)
[2022-09-21] MEDS ORDERED: KETOROLAC 30 MG/ML VIAL IVP STA (21:18)
[2022-09-21] MEDS ORDERED: ACETAMINOPHEN 500 MG TAB (TYLENOL) PO PRN (21:30)
[2022-09-21] MEDS ORDERED: LACTATED RINGERS 1,000 ML IV ONE ×2 (21:30→22:45)
[2022-09-21] MEDS ORDERED: PIPERACILLIN SODIUM/TAZOBACTAM 4.5 GM in NS (IVPB) 100 ML IV ONE (21:30)
--- NOTE | 2022-09-21 21:34 | ED Upper Extremity ---
General Stated Complaint: INJ RIGHT INDEX FINGER Source: patient History of Present Illness Date Seen by Provider: Sep 21, 2022 Time Seen by Provider: 21:19 Initial Comments PT ARRIVES VIA POV FROM HOME PT STATES SHE SUSTAINED A CAT SCRATCH TO HER RIGHT INDEX FINGER YESTERDAY (HER OWN CAT) SHE WOKE UP THIS MORNING WITH PAIN AND SWELLING TO HER FINGER. SHE HAS HAD INCREASED PAIN, REDNESS AND SWELLING TO HER FINGER THROUGHOUT THE DAY THERE IS NO DRAINAGE FROM THE WOUND NO PARESTHESIAS, LIMITED ROM DUE TO PAIN PT WAS UNAWARE OF FEVER--TEMP IS 39.4=103 ON ARRIVAL HERE SHE TOOK HER OXYCODONE 10/325 AT 1915 WITHOUT RELIEF ( TAKES IT DAILY FOR CHRONIC BACK PAIN ) PT WORKS AT [employer] IN [place], AND WENT TO THE URGENT CARE THERE AFTER SHE GOT OFF WORK BUT THEY COULD NOT DO ANYTHING OTHER THAN PRESCRIBE ORAL MEDICATIONS, SO SHE CAME HERE. PT IS RIGHT HANDED. NO PRIOR INJURY OR PROBLEMS WITH THIS HAND/FINGER. LAST TETANUS IS > 10 YEARS PCP: DR. YU Allergies and Home Medications Allergies Coded Allergies: Melissa Known Allergies (Verified Allergy, Unknown, 09/14/05) Patient Home Medication List Home Medication List Reviewed: Yes Alprazolam (Xanax) 0.25 Mg Tablet, (Reported) Entered as Reported by: FAWAD CANO on 10/21/06 0033 Amitriptyline HCl (Amitriptyline HCl) 150 Mg Tablet, (Reported) Entered as Reported by: MOR WATTS on 09/21/222208 Last Action: New Order Dextroamphetamine/Amphetamine (Amphetamine Salts 20 mg Tablet) 20 Mg Tablet, (Reported) Entered as Reported by: MOR WATTS on 09/21/222208 Last Action: New Order Escitalopram Oxalate (Escitalopram Oxalate) 20 Mg Tablet, (Reported) Entered as Reported by: MOR WATTS on 09/21/222208 Last Action: New Order Fluoxetine Hcl (Fluoxetine Hcl) 40 Mg Capsule, 1 EACH PO DAILY, (Reported) Entered as Reported by: SHIRLEY GAMBLE on 10/21/11 1202 Furosemide (Furosemide) 40 Mg Tablet, (Reported) Entered as Reported by: MOR WATTS on 09/21/222208 Last Action: New Order Hydrocodone Bit/Acetaminophen (Lortab 7.5/500 Tablet) 1 Tab Tablet, 1 EACH PO Q 4 - 6 HRS PRN Prescribed by: WING LOPEZ MD on 09/03/09 1301 Hydrocodone Bit/Acetaminophen (Hydrocodone-Apap 5-500 Cap) 1 Each Capsule, 2 EACH PO Q6HR PRN Prescribed by: KADI ARMANDO on 01/03/10 213 Hydromorphone Hcl (Dilaudid) 4 Mg Tab, 1 TAB PO PRN Prescribed by: VERO MUELLER on 10/21/11 1349 Meloxicam (Mobic) 15 Mg Tablet, 1 EACH PO DAILY, (Reported) Entered as Reported by: AMANDA BEAR on 01/03/10 1632 Oxycodone HCl/Acetaminophen (Oxycodone-Acetaminophen 10-325) 10 Mg-325 Mg Tablet, (Reported) Entered as Reported by: MOR WATTS on 09/21/222208 Last Action: New Order Pantoprazole Sodium (Pantoprazole Sodium) 40 Mg Tablet.dr, (Reported) Entered as Reported by: MOR WATTS on 09/21/222208 Last Action: New Order Potassium Chloride (Potassium Chloride) 10 Meq Capsule.er, (Reported) Entered as Reported by: MOR WATTS on 09/21/222208 Last Action: New Order Pseudoephedrine HCl (Sudafed) 30 Mg Tablet, 30 MG PO Q4H PRN for CONGESTION Prescribed by: AD AYALA on 02/14/18 112 Tramadol Hcl (Ultram) 50 Mg Tablet, 50 MG PO QID PRN, (Reported) Entered as Reported by: AMANDA BEAR on 01/03/10 1632 Review of Systems Constitutional: see HPI Respiratory: no symptoms reported Cardiovascular: no symptoms reported Gastrointestinal: no symptoms reported : No Musculoskeletal: see HPI Skin: see HPI Psychiatric/Neurological: No Symptoms Reported Past Nltbega-Ucsxor-Jvttea Hx Patient Social History Tobacco Use?: Yes Tobacco type used: Cigarettes Smoking Status: Former Smoker Substance use?: No Alcohol Use?: No Immunizations Up To Date Tetanus Booster (TDap): Less than 5yrs Seasonal Allergies Seasonal Allergies: No Past Medical History Surgeries: Yes (LOOP RECORDER 11/06/2020) Appendectomy, Cardiac, Gallbladder, Hysterectomy, Tubal Ligation Respiratory: No Currently Using CPAP: No Cardiac: Yes (LOOP RECORDER 11/06/2020) High Cholesterol, Palpitations, Syncope Neurological: No Reproductive Disorders: Yes Female Reproductive Disorders: 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 0.0oz. 68.851967zy; 24.73 BMI Method:Stated General Appearance: other (PT IS VERY DRAMATIC, THRASHING, WAILING. SOBBING. ) Neck: normal inspection Cardiovascular: regular rate, rhythm Respiratory: normal breath sounds Hand: Right (RIGHT INDEX FINGER WITH VERY SUPERFICIAL 1/2 CM LINER SCRATCH TO PALMAR ASPECT OF MIDDLE PHALANX. ENTIRE FINGER IS WARM, RED, AND SWOLLEN. THIS DOES NOT EXTEND BEYOND THE MCP JOINT. DISTAL SENSORY/VASCULAR INTACT. LIMTED ROM IN ALL DIRECTIONS DUE TO PAIN. 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, alert, oriented x 3 Skin: normal color, warm/dry Progress/Results/Core Measures Results/Orders Lab Results Laboratory Tests Test 09/21/22 21:25 09/22/22 03:25 Range/Units White Blood Count 16.9 H 12.8 H 4.3-11.0 10^3/uL Red Blood Count 4.18 3.38 L 3.80-5.11 10^6/uL Hemoglobin 12.3 10.1 L 11.5-16.0 g/dL Hematocrit 37 30 L 35-52 % Mean Corpuscular Volume 89 89 80-99 fL Mean Corpuscular Hemoglobin 29 30 25-34 pg Mean Corpuscular Hemoglobin Concent 33 34 32-36 g/dL Red Cell Distribution Width 12.5 12.6 10.0-14.5 % Platelet Count 363 318 130-400 10^3/uL Mean Platelet Volume 8.7 L 9.1 9.0-12.2 fL Immature Granulocyte % (Auto) 0 0 % Neutrophils (%) (Auto) 84 H 83 H 42-75 % Lymphocytes (%) (Auto) 8 L 10 L 12-44 % Monocytes (%) (Auto) 6 7 0-12 % Eosinophils (%) (Auto) 1 1 0-10 % Basophils (%) (Auto) 0 0 0-10 % Neutrophils # (Auto) 14.2 H 10.5 H 1.8-7.8 10^3/uL Lymphocytes # (Auto) 1.4 1.3 1.0-4.0 10^3/uL Monocytes # (Auto) 1.0 0.8 0.0-1.0 10^3/uL Eosinophils # (Auto) 0.2 0.1 0.0-0.3 10^3/uL Basophils # (Auto) 0.1 0.0 0.0-0.1 10^3/uL Immature Granulocyte # (Auto) 0.1 0.1 0.0-0.1 10^3/uL Neutrophils % (Manual) 84 % Lymphocytes % (Manual) 7 % Monocytes % (Manual) 6 % Basophils % (Manual) 1 % Band Neutrophils 2 % Toxic Granulation 1+ Platelet Estimate NORMAL Blood Morphology Comment NORMAL Prothrombin Time 12.0 L 12.2-14.7 SEC INR Comment 0.8 0.8-1.4 Activated Partial Thromboplast Time 32 24-35 SEC Sodium Level 133 L 134 L 135-145 MMOL/L Potassium Level 3.3 L 4.0 3.6-5.0 MMOL/L Chloride Level 94 L 100 98-107 MMOL/L Carbon Dioxide Level 26 26 21-32 MMOL/L Anion Gap 13 8 5-14 MMOL/L Blood Urea Nitrogen 14 14 7-18 MG/DL Creatinine 1.18 1.00 0.60-1.30 MG/DL Estimat Glomerular Filtration Rate 55 67 BUN/Creatinine Ratio 12 14 Glucose Level 117 H 122 H 70-105 MG/DL Lactic Acid Level 1.87 0.50-2.00 MMOL/L Calcium Level 9.2 8.2 L 8.5-10.1 MG/DL Corrected Calcium 8.6 8.5-10.1 MG/DL Magnesium Level 1.6 1.6-2.4 MG/DL Total Bilirubin 0.5 0.6 0.1-1.0 MG/DL Aspartate Amino Transf (AST/SGOT) 38 H 141 H 5-34 U/L Alanine Aminotransferase (ALT/SGPT) 26 65 H 0-55 U/L Alkaline Phosphatase 107 89 40-136 U/L Total Protein 8.1 6.1 L 6.4-8.2 GM/DL Albumin 4.7 H 3.5 3.2-4.5 GM/DL Serum Alcohol < 10 <10 MG/DL My Orders Orders - CARLITOS RENTERIA DO Ed Iv/Invasive Line Start (09/21/22 21:18) Monitor-Rhythm Ecg Trace Only (09/21/22 21:18) Cbc With Automated Diff (09/21/22 21:18) Comprehensive Metabolic Panel (09/21/22 21:18) Magnesium (09/21/22 21:18) Ed Iv/Invasive Line Start (09/21/22 21:18) Lactated Ringers (Lr 1000 Ml Iv Solution (09/21/22 21:30) Blood Culture (09/21/22 21:18) Urinalysis (09/21/22 21:18) Urine Culture (09/21/22 21:18) Protime With Inr (09/21/22 21:18) Partial Thromboplastin Time (09/21/22 21:18) Chest 1 View, Ap/Pa Only (09/21/22 21:18) Acetaminophen Tablet (Tylenol Tablet) (09/21/22 21:30) Ed Iv/Invasive Line Start (09/21/22 21:18) Ed Iv/Invasive Line Start (09/21/22 21:18) Vital Signs Adult Sepsis Patie Q15M (09/21/22 21:18) O2 (09/21/22 21:18) Remove Rings In Anticipation O (09/21/22 21:18) Lactic Acid Analyzer (09/21/22 21:18) Piperacillin Sodium/Tazobactam (Zosyn Vi (09/21/22 21:30) Vancomycin Injection (Vancomycin Injecti (09/21/22 21:30) Hand, Right, 3 Views (09/21/22 21:18) Fentanyl Inj (Sublimaze Injection) (09/21/22 21:18) Ketorolac Injection (Toradol Injection) (09/21/22 21:18) Manual Differential (09/21/22 21:25) Morphine Injection (Morphine Injection (09/21/22 21:53) Drug Screen Stat (Urine) (09/21/22 21:54) Alcohol (09/21/22 21:25) Dipht,Pertuss(Acell),Tet Adult (Boostrix (09/21/22 22:45) Ct Extremity Upper Right Wo (09/21/22 22:38) Hydromorphone Injection (Dilaudid Inject (09/21/22 22:45) Ed Iv/Invasive Line Start (09/21/22 22:39) Lactated Ringers (Lr 1000 Ml Iv Solution (09/21/22 22:45) Medications Given in ED Current Medications Medications Dose Ordered Sig/Gilberto Route Start Time Stop Time Status Last Admin Dose Admin Acetaminophen 1,000 mg ONCE PRN PO 09/21/22 21:30 09/21/22 21:45 DC 09/21/22 21:44 1,000 MG Diphtheria/ Tetanus/Acell Pertussis 0.5 ml ONCE ONCE IM 09/21/22 22:45 09/21/22 22:46 DC 09/21/22 22:44 0.5 ML Hydromorphone HCl 1 mg ONCE ONCE IV 09/21/22 22:45 09/21/22 22:46 DC 09/21/22 22:44 1 MG Lactated Ringer's 1,000 ml @ 0 mls/hr Q0M ONCE IV 09/21/22 21:30 09/21/22 21:31 DC 09/21/22 21:35 0 MLS/HR Lactated Ringer's 1,000 ml @ 0 mls/hr Q0M ONCE IV 09/21/22 22:45 09/21/22 22:46 DC 09/21/22 22:44 0 MLS/HR Piperacillin Sod/ Tazobactam Sod 4.5 gm/Sodium Chloride 100 ml @ 200 mls/hr ONCE ONCE IV 09/21/22 21:30 09/21/22 21:59 DC 09/21/22 21:44 200 MLS/HR Vital Signs/I&O 09/21/22 09/21/22 09/22/22 09/22/22 21:10 21:44 00:03 00:10 Temp 39.4 39.4 36.8 37.1 Pulse 116 93 Resp 26 12 B/P (MAP) 111/72 (85) 116/81 Pulse Ox 95 96 O2 Delivery Room Air Nasal Cannula Nasal Cannula O2 Flow Rate 2.00 09/22/22 09/22/22 09/22/22 09/22/22 00:10 00:24 00:30 00:30 Pulse 93 90 90 Resp 14 15 B/P (MAP) 107/72 (81) 112/74 (87) Pulse Ox 95 95 96 O2 Delivery Nasal Cannula Nasal Cannula Nasal Cannula O2 Flow Rate 2.00 2.00 2.00 09/22/22 09/22/22 09/22/22 09/22/22 00:45 01:00 01:00 01:15 Pulse 91 90 90 90 Resp 14 15 12 B/P (MAP) 101/82 (89) 125/91 (104) 103/76 (86) Pulse Ox 95 97 96 O2 Delivery Nasal Cannula Nasal Cannula Nasal Cannula O2 Flow Rate 2.00 2.00 2.00 09/22/22 09/22/22 09/22/22 09/22/22 01:24 01:30 01:45 02:00 Pulse 93 86 84 85 Resp 12 9 15 B/P (MAP) 103/76 107/77 (87) 106/72 (88) 102/67 (82) Pulse Ox 97 97 96 O2 Delivery Nasal Cannula Nasal Cannula Nasal Cannula O2 Flow Rate 2.00 2.00 2.00 09/22/22 09/22/22 03:00 04:23 Temp 36.5 Pulse 85 Resp 13 B/P (MAP) 94/60 (71) Pulse Ox 98 O2 Delivery Nasal Cannula O2 Flow Rate 2.00 09/22/22 00:00 Intake Total 1350 ml Balance 1350 ml Progress Progress Note : Progress Note SEPSIS PROTOCOL INITIATED RIGHT THUMB RING HAD TO BE CUT OFF--NO SWELLING TO THUMB--RING IS SMALL / THIN AND HAS A LARGE KNUCKLE TO THUMB. PT HAS NEVER TRIED TO REMOVE RING BEFORE,. PT HYSTERICAL DURING ATTEMPTS TO REMOVE RING. GIVEN: -IV FLUIDS -DPT VACCINE -TYLENOL FOR FEVER -TORADOL -MORPHINE -DILAUDID -ZOSYN + VANCOMYCIN FOCUS EXAM AT 2240: HR AROUND 100, BP 110'S/70'S, O2 SATS MID 90'S EXAM UNCHANGED NO DETERIORATION IN PT'S CONDITION DURING ER STAY REVIEWED TEST RESULTS, NEED FOR ADMIT AND PT IS AGREEABLE TO PLAN PT IS FEELING BETTER AT TIME OF ADMIT. REVIEWED PRIOR RECORDS INCLUDING ER VISITS, ADMITS/H&P'S/CONSULTS/DISCHARGE SUMMARIES, TESTS/PROCEDURES Diagnostic Imaging Comments XRAYS RIGHT HAND--NO ACUTE PROCESS, PENDING RADIOLOGIST REVIEW CT RIGHT HAND--PER [facility] VIA FAX AT 2881 -CELLULITIS INVOLVING THE SECOND DIGIT OF RIGHT HAND -NO DISCRETE FLUID COLLECTION TO SUGGEST ABSCESS -NO GAS TO SUGGEST NECROTIZING INFECTION -THE FLEXOR TENDON DOES DEMONSTRATE DISCRETE FLUID COLLECTION TO SUGGEST TENOSYNOVITIS -NO OBVIOUS JOINT FLUID AT THE IP JOINTS OR MCP JOINT. Reviewed: Reviewed by Me Departure Communication (Admissions) 1403--SPOKE WITH DR. ESTRADA, HOSPITALIST, ACCEPTS PT FOR ADMIT. Impression Primary Impression: Sepsis Additional Impressions: Cellulitis of right index finger CAT SCRATCH RIGHT INDEX FINGER WITH CELLULITIS Cyitlkgnfk-srjhndgsl-svwxrpy (DPT) vaccination administered at current visit Disposition: ADMITTED INPATIENT Condition: Stable Admissions Decision to Admit Reason: Admit from ER (General) Decision to Admit/Date: Sep 21, 2022 Time/Decision to Admit Time: 22:35 Departure-Patient Inst. Referrals: DUNIA YU DO (PCP/Family) Primary Care Physician CARLITOS RENTERIA DO Sep 21, 2022 21:34
[2022-09-21 21:39] LABS: BASOPHILS # (AUTO) 0.1 10^3/uL (0.0-0.1); BASOPHILS % (AUTO) 0 % (0-10); EOSINOPHILS # (AUTO) 0.2 10^3/uL (0.0-0.3); EOSINOPHILS % (AUTO) 1 % (0-10); HEMATOCRIT 37 % (35-52); HEMOGLOBIN 12.3 g/dL (11.5-16.0); LYMPHOCYTES # (AUTO) 1.4 10^3/uL (1.0-4.0); LYMPHOCYTES % (AUTO) 8 % (12-44); MEAN CORPUSCULAR HEMOGLOBIN 29 pg (25-34); MEAN CORPUSCULAR HGB CONC 33 g/dL (32-36); MEAN CORPUSCULAR VOLUME 89 fL (80-99); MEAN PLATELET VOLUME 8.7 fL (9.0-12.2); MONOCYTES % (AUTO) 6 % (0-12); NEUTROPHILS # (AUTO) 14.2 10^3/uL (1.8-7.8); NEUTROPHILS % (AUTO) 84 % (42-75); PLATELET COUNT 363 10^3/uL (130-400); WHITE BLOOD COUNT 16.9 10^3/uL (4.3-11.0)
[2022-09-21] MEDS: VANCOMYCIN INJECTION 750 MG in NS (IVPB) 250 ML IV SCH ×2 (21:45→21:58)
[2022-09-21 21:53] LABS: INR 0.8 (0.8-1.4)
[2022-09-21] MEDS ORDERED: morphine INJ 10 MG/ML 1ML (SYR OR VIAL) IVP STA (21:53)
--- NOTE | 2022-09-21 22:02 | Diagnostic Imaging Report ---
CHEST 1 VIEW, AP/PA ONLY INDICATION: SEPSIS. COMPARISON: Chest radiograph 10/09/2020 FINDINGS: Lungs: Low lung volume. Bibasilar airspace opacities Pleura: No pleural effusion or pneumothorax. Heart and Mediastinum: Cardiomediastinal silhouette and great vessels of the thorax are stable. Osseous Structures and Soft Tissues: No acute osseous abnormality. Normal soft tissues. IMPRESSION: Bibasilar airspace opacities may represent infection or atelectasis. Dictated by: Dictated on workstation # [id number]
--- NOTE | 2022-09-21 22:03 | Diagnostic Imaging Report ---
HAND, RIGHT, 3 VIEWS DATE: 09/21/2022 9:40 PM INDICATION: hand pain COMPARISON: None. TECHNIQUE: PA, lateral, and oblique views FINDINGS: Bones: There is no evidence of acute fracture or dislocation. Joints: The joint spaces are normal. Miscellaneous: None. IMPRESSION: No evidence of acute fracture. Dictated by: Dictated on workstation # [id number]
[2022-09-21 22:08] LABS: ALANINE AMINOTRANSFERASE 26 U/L (0-55); ALBUMIN 4.7 GM/DL (3.2-4.5); ALKALINE PHOSPHATASE 107 U/L (40-136); BILIRUBIN,TOTAL 0.5 MG/DL (0.1-1.0); BUN/CREATININE RATIO 12; CALCIUM 9.2 MG/DL (8.5-10.1); CARBON DIOXIDE 26 MMOL/L (21-32); CHLORIDE 94 MMOL/L (98-107); CREATININE SERUM 1.18 MG/DL (0.60-1.30); GFR ESTIMATED 55; GLUCOSE 117 MG/DL (70-105); MAGNESIUM 1.6 MG/DL (1.6-2.4); POTASSIUM 3.3 MMOL/L (3.6-5.0); SODIUM 133 MMOL/L (135-145); TOTAL PROTEIN 8.1 GM/DL (6.4-8.2)
[2022-09-21] MEDS ORDERED: ESCI20TA39 PO (22:09)
[2022-09-21] MEDS ORDERED: AMIT150T PO (22:09)
[2022-09-21] MEDS ORDERED: DEXT20TA8 PO (22:09)
[2022-09-21] MEDS ORDERED: FURO40TA4 PO (22:09)
[2022-09-21] MEDS ORDERED: PANT40TA52 PO (22:09)
[2022-09-21] MEDS ORDERED: POTA10CA44 PO (22:09)
[2022-09-21] MEDS ORDERED: OXYC-556 PO (22:09)
[2022-09-21 22:14] LABS: BAND NEUTROPHILS 2 %; BASOPHILS % (MANUAL) 1 %; LYMPHOCYTES % (MANUAL) 7 %; MONOCYTES % (MANUAL) 6 %; NEUTROPHILS % (MANUAL) 84 %; PLATELET ESTIMATE NORMAL; RBC MORPH NORMAL; TOXIC GRANULATION/VACUOLAZATIO 1+
[2022-09-21] MEDS ORDERED: HYDROmorphone 2 MG/ML VIAL (DILAUDID) IV ONE (22:45)
[2022-09-21] MEDS ORDERED: TETANUS,DIPTH,PERTUSS P/F (BOOSTRIX) 0.5 ML VIAL IM ONE (22:45)
[2022-09-22] VITALS (23 sets, daily range): BP systolic 80–125; BP diastolic 55–91
[2022-09-22] MEDS ORDERED: ONDANSETRON 4 MG/2 ML (SDV) Z0FRAN IV PRN (00:45)
[2022-09-22] MEDS ORDERED: ACETAMINOPHEN 500 MG TAB (TYLENOL) PO PRN (00:45)
[2022-09-22] MEDS ORDERED: EPINEPHrine 1 MG INJECTION 4 MG in NS (IVPB) 248 ML IV SCH (01:15)
[2022-09-22] MEDS: LACTATED RINGERS 1,000 ML IV SCH ×3 (01:22→18:47)
[2022-09-22] MEDS: NOREPINEPHRINE 8 MG/250 ML 250 ML IV SCH ×2 (01:24→19:51)
[2022-09-22] MEDS: VASOPRESSIN INJECTION 20 UNIT in NS (IVPB) 100 ML IV SCH ×3 (01:25→22:39)
[2022-09-22] MEDS: HYDROmorphone 2 MG/ML VIAL (DILAUDID) IV PRN ×2 (03:45→08:29)
[2022-09-22] MEDS: PIPERACILLIN SODIUM/TAZOBACTAM 4.5 GM in NS (IVPB) 100 ML IV SCH ×3 (03:46→20:01)
[2022-09-22 03:59] LABS: BASOPHILS % (AUTO) 0 % (0-10); EOSINOPHILS # (AUTO) 0.1 10^3/uL (0.0-0.3); EOSINOPHILS % (AUTO) 1 % (0-10); HEMATOCRIT 30 % (35-52); HEMOGLOBIN 10.1 g/dL (11.5-16.0); LYMPHOCYTES # (AUTO) 1.3 10^3/uL (1.0-4.0); LYMPHOCYTES % (AUTO) 10 % (12-44); MEAN CORPUSCULAR HEMOGLOBIN 30 pg (25-34); MEAN CORPUSCULAR HGB CONC 34 g/dL (32-36); MEAN CORPUSCULAR VOLUME 89 fL (80-99); MEAN PLATELET VOLUME 9.1 fL (9.0-12.2); MONOCYTES # (AUTO) 0.8 10^3/uL (0.0-1.0); MONOCYTES % (AUTO) 7 % (0-12); NEUTROPHILS # (AUTO) 10.5 10^3/uL (1.8-7.8); NEUTROPHILS % (AUTO) 83 % (42-75); PLATELET COUNT 318 10^3/uL (130-400); WHITE BLOOD COUNT 12.8 10^3/uL (4.3-11.0)
[2022-09-22 04:23] LABS: ALBUMIN 3.5 GM/DL (3.2-4.5); BILIRUBIN,TOTAL 0.6 MG/DL (0.1-1.0); CALCIUM 8.2 MG/DL (8.5-10.1); TOTAL PROTEIN 6.1 GM/DL (6.4-8.2)
[2022-09-22] MEDS: KETOROLAC 30 MG/ML VIAL IVP SCH ×3 (06:36→18:27)
--- NOTE | 2022-09-22 07:01 | Diagnostic Imaging Report ---
PROCEDURE: CT right upper extremity without contrast. TECHNIQUE: Multiple contiguous axial images were obtained through the right upper extremity without the use of intravenous contrast. Sagittal and coronal reformations were then performed. Auto Exposure Controls were utilized during the CT exam to meet ALARA standards for radiation dose reduction. INDICATION: Cellulitis. FINDINGS: The bony alignment is normal. There is no fracture or dislocation. There is some soft tissue induration about the 2nd digit within the subcutaneous tissues compatible with nonspecific cellulitis. No discrete fluid collection appreciated to suggest abscess. There is no subcutaneous gas. Flexor tendon demonstrates no obvious discrete fluid collection to suggest tenosynovitis. There is no joint fluid. IMPRESSION: Findings suspect for cellulitis involving the 2nd digit of the right hand however no acute fracture, dislocation or abscess. Dictated by: Dictated on workstation # [id number]
--- NOTE | 2022-09-22 08:30 | History & Physical-Hospitalist ---
History of Present Illness HPI/Chief Complaint Pt is a 57yoCF who presented to the Er due to finger paina nd swelling. She reported to the ER that she got scratched by a cat but to me she states it started after cleaning her fridge out and spraying ant killer. She was concerned she got the chemicals in a scratch and it caused this. She went to work and her symptoms continued to worsen. She actually went to the urgent care at her work and was given oral antibiotics. She states she requested IM/IV abx but was told they were on back order and she could only get oral. She took her first dose but when she got home her swelling was so bad her had to cut a ring off her finger. She was found to have a leukocytosis and was febrile on arrival. She had to have another ring cut off of her finger in the ER as well. This morning she reports she is still having pain and that the dilaudid is not helping. She is requesting fentanyl instead as that has historically worked for her. She denies feeling any better. We discussed need for surgical evaluation and even potential transfer if surgeon felt unable to manage here. She is agreeable to this plan. Source: patient Date Seen 09/22/22 Time Seen by a Provider: 08:30 Attending Physician Kash Salmeron DO PCP Admitting Physician: Tamar Aguayo MD Attending Physician: Tamar Aguayo MD Referring Physician Date of Admission Sep 21, 2022 at 23:49 Home Medications & Allergies Home Medications Reviewed patient Home Medication Reconciliation performed by pharmacy medication reconciliations claims technician and/or nursing. Patients Allergies have been reviewed. Allergies Allergies Coded Allergies NKANo Known Allergies (Verified Allergy, Unknown, 09/14/05) Past Sjlkqmf-Rciykn-Xvrrhn Hx Patient Social History Tobacco Use?: Yes Tobacco type used: Cigarettes Smoking Status: Former Smoker Smokeless Tobacco Frequency: Never a User Use of E-Cig and/or Vaping dev: No Substance use?: No Alcohol Use?: No Additional alcohol type: MIKES HARD LEMONADE Alcohol Frequency: Couple times a week Pt feels they are or have been: No Immunizations Up To Date Date of Influenza Vaccine: Jan 24, 2020 First/Initial COVID19 Vaccinat: denies Tetanus Booster (TDap): Less Than 5 Years Seasonal Allergies Seasonal Allergies: No Current Status status: No Advance Directives: No Communicates: Verbally Primary Language: Ugandan Preferred Spoken Language: Ugandan Is interpretation needed?: No Implanted or Applied Medical D: None Past Medical History Surgeries: Appendectomy, Cardiac, Gallbladder, Hysterectomy, Tubal Ligation Currently Using CPAP: No High Cholesterol, Palpitations, 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 0.0oz. 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 She does have the ability to perform some AROM with flex ion and extension but it is quite limited) Neurologic/Psychiatric: Alert, Oriented x3 Results Results/Procedures Labs Laboratory Tests 09/23/22 03:35 09/24/22 05:15 Patient resulted labs reviewed. Imaging: Reviewed Imaging Report Imaging [facility], [place] NAME: CHRIS WU [facility] REC#: [id number] PT STATUS: ADM IN : 1965 PHYSICIAN: CARLITOS RENTERIA DO ADMIT DATE: 09/21/22/ICU Signed Date of Exam:09/21/22 CT EXTREMITY UPPER RIGHT WO PROCEDURE: CT right upper extremity without contrast. TECHNIQUE: Multiple contiguous axial images were obtained through the right upper extremity without the use of intravenous contrast. Sagittal and coronal reformations were then performed. Auto Exposure Controls were utilized during the CT exam to meet ALARA standards for radiation dose reduction. INDICATION: Cellulitis. FINDINGS: The bony alignment is normal. There is no fracture or dislocation. There is some soft tissue induration about the 2nd digit within the subcutaneous tissues compatible with nonspecific cellulitis. No discrete fluid collection appreciated to suggest abscess. There is no subcutaneous gas. Flexor tendon demonstrates no obvious discrete fluid collection to suggest tenosynovitis. There is no joint fluid. IMPRESSION: Findings suspect for cellulitis involving the 2nd digit of the right hand however no acute fracture, dislocation or abscess. Dictated by: Dictated on workstation # [id number] Dict: 09/22/22 0658 Trans: 09/22/22858 CVB [id number] Interpreted by: WILMA OCHOA MD Electronically signed by: WILMA OCHOA MD 09/22/22858 [facility]. [place], [place] NAME: CHRIS WU [facility] REC#: [id number] PT STATUS: REG ER : 1965 PHYSICIAN: CARLITOS RENTERIA DO ADMIT DATE: 09/21/22/ER Signed Date of Exam:09/21/22 HAND, RIGHT, 3 VIEWS HAND, RIGHT, 3 VIEWS DATE: 09/21/2022 9:40 PM INDICATION: hand pain COMPARISON: None. TECHNIQUE: PA, lateral, and oblique views FINDINGS: Bones: There is no evidence of acute fracture or dislocation. Joints: The joint spaces are normal. Miscellaneous: None. IMPRESSION: No evidence of acute fracture. Dictated by: Dictated on workstation # [id number] Dict: 09/21/222200 Trans: 09/21/222201 [facility] [place] [id number] Interpreted by: JAYLIN CHEN DO Electronically signed by: JAYLIN CHEN DO 09/21/222201 Assessment/Plan Admission Diagnosis Sepsis Admission Status: Inpatient Order (span 2 midnights) Reason for Inpatient Admission: see below Assessment and Plan Sepsis due to cellulitis of right index finger CT shows no abscess, gas, or evidence of tenosynovitis but she does have significant edema and warmth of hand Continue IV abx Await cultures Surgery consulted, appreciate recs Ortho surgery consulted due to significance of edema and concern for developing tenosynovitis Spoke with Dr Linares's nurse as he was operating but he stated he has seen her and no indication for OR and to continue IV abx ADD Anxiety Chronic pain Continue home meds as able DVT ppx: Lovenox Diagnosis/Problems Diagnosis/Problems (1) Sepsis Status: Acute (2) Cellulitis of right index finger Status: Acute AIYANA HARDING MD September 22, 2022 08:30
[2022-09-22] MEDS: fentaNYL INJ 100 MCG/2 ML AMP IVP PRN ×3 (10:00→18:20)
[2022-09-22] MEDS: VANCOMYCIN 750 MG/NS 250 ML IVPB IV SCH ×4 (10:04→22:20)
[2022-09-22 10:45] LABS: BILIRUBIN,URINE NEGATIVE (NEGATIVE); CLARITY,URINE CLEAR; COLOR,URINE YELLOW; GLUCOSE, URINE (UA) NEGATIVE (NEGATIVE); KETONES,URINE NEGATIVE (NEGATIVE); LEUKOCYTE ESTERASE ,URINE 1+ (NEGATIVE); NITRITE,URINE NEGATIVE (NEGATIVE); PH,URINE 5.5 (5-9); PROTEIN,URINE NEGATIVE (NEGATIVE)
[2022-09-22 11:03] LABS: BACTERIA,URINE NEGATIVE /HPF; RBC,URINE RARE /HPF; SQUAMOUS EPITHELIAL CELL,UR 0-2 /HPF; WBC,URINE 0-2 /HPF
[2022-09-22 11:04] LABS: AMPHETAMINE SCREEN, URINE POSITIVE (NEGATIVE); BENZODIAZEPINES SCREEN URINE POSITIVE (NEGATIVE); CANNABINOID SCREEN, URINE NEGATIVE (NEGATIVE); COCAINE SCREEN URINE NEGATIVE (NEGATIVE); OPIATE SCREEN URINE POSITIVE (NEGATIVE)
[2022-09-22 11:05] LABS: BARBITURATE SCREEN URINE NEGATIVE (NEGATIVE); METHADONE STAT NEGATIVE (NEGATIVE); OXYCODONE STAT POSITIVE (NEGATIVE); PROPOXYPHENE STAT NEGATIVE (NEGATIVE); TRICYCLIC ANTIDEPRESSANTS SCRE POSITIVE (NEGATIVE)
[2022-09-22] MEDS ORDERED: ESCI-2 PO (12:20)
[2022-09-22] MEDS ORDERED: ALPR0.5T7 PO (12:24)
[2022-09-22] MEDS ORDERED: MELO15TA39 PO (12:25)
[2022-09-22] MEDS ORDERED: MTP25TSR PO (12:25)
[2022-09-22] MEDS ORDERED: MAGN400T39 PO (12:26)
[2022-09-22] MEDS ORDERED: PREN1TAB79 PO (12:26)
--- NOTE | 2022-09-22 15:03 | Consultation - Ortho ---
Consult - Ortho Subjective Date of Exam 09/22/22 Chief Complaint Right Finger Infection HPI/Events since last exam had small cut to index finger, intially attempted to be treated with oral antibiotics however had continued swelling and pain, admitted through our ER and started on IV antibiotics, notes ongoing swelling and pain Medical, Surgical History see admit Social History see admit Family History see admit Review of Systems - Allergies: Coded Allergies: NKANo Known Allergies (Verified Allergy, Unknown, 09/14/05) Home Meds Reported Medications Magnesium Oxide (Magnesium) 400 Mg Magnesium Tablet, 800 MG PO DAILY, TAB TAKES 2 (400MG) TABS 09/22/22 Vit W-Ca,Fe,FA(<1 mg) ( Vitamins) 27 Mg Iron-800 Mcg Tablet, 1 EACH PO DAILY, TAB 09/22/22 Meloxicam (Meloxicam) 15 Mg Tablet, 15 MG PO DAILY FILLED 07-16-2022 # DAY SUPPLY 09/22/22 Metoprolol Succinate (Metoprolol Succinate) 25 Mg Tab.er.24h, 25 MG PO DAILY 09/22/22 Alprazolam (Alprazolam) 0.5 Mg Tablet, 0.5 MG PO QID PRN for ANXIETY 09/22/22 Escitalopram Oxalate (Escitalopram Oxalate) 10 Mg Tablet, 10 MG PO DAILY TAKES ALONG with 20MG TO EQUAL 30MG FILLED 07-16-2022 DAY SUPPLY 09/22/22 Oxycodone HCl/Acetaminophen (Oxycodone-Acetaminophen 10-325) 10 Mg-325 Mg Tablet, 1 EACH PO TID 09/21/22 Escitalopram Oxalate (Escitalopram Oxalate) 20 Mg Tablet, 20 MG PO DAILY TAKES ALONG WITH 10MG TO EQUAL 30MG 09/21/22 Amitriptyline HCl (Amitriptyline HCl) 150 Mg Tablet, 150 MG PO HS 09/21/22 Pantoprazole Sodium (Pantoprazole Sodium) 40 Mg Tablet.dr, 40 MG PO DAILY 09/21/22 Furosemide (Furosemide) 40 Mg Tablet, 40 MG PO BID 09/21/22 Potassium Chloride (Potassium Chloride) 10 Meq Capsule.er, 10 MEQ PO DAILY PRN for FLUID RETENTION 09/21/22 Dextroamphetamine/Amphetamine (Amphetamine Salts 20 mg Tablet) 20 Mg Tablet, 10 MG PO BID TAKES 1/2 OF (20MG) TAB 09/21/22 Objective Exam Right Hand: Index finger with swelling mostly focused around middle and proximal phalanx, tender diffusely on flexor and extensor surfaces, nontender to passive stretch, able to do a flicker of active motion, sensation grossly intact to light touch Vital Signs Vital Signs Date Time Temp Pulse Resp B/P (MAP) Pulse Ox O2 Delivery O2 Flow Rate FiO2 09/22/22 13:00 87 17 95/59 (71) 92 Nasal Cannula 2.00 09/22/22 12:28 90 09/22/22 12:00 36.5 81 18 90/55 (67) 96 Room Air 09/22/22 09:00 84 10 91/58 (69) 93 Nasal Cannula 2.00 09/22/22 08:00 81 15 110/70 (83) 93 Nasal Cannula 2.00 09/22/22 08:00 94 Room Air 09/22/22 08:00 36.3 81 18 102/67 (79) 96 09/22/22 07:16 79 09/22/22 07:00 87 12 100/71 (81) 94 Nasal Cannula 2.00 09/22/22 06:00 98 Nasal Cannula 2.00 09/22/22 04:23 36.5 09/22/22 04:00 85 13 99/71 (80) 99 Nasal Cannula 2.00 09/22/22 03:00 85 13 94/60 (71) 98 Nasal Cannula 2.00 09/22/22 02:00 85 15 102/67 (82) 96 Nasal Cannula 2.00 09/22/22 01:45 84 9 106/72 (88) 97 Nasal Cannula 2.00 09/22/22 01:30 86 12 107/77 (87) 97 Nasal Cannula 2.00 09/22/22 01:24 93 103/76 09/22/22 01:15 90 12 103/76 (86) 96 Nasal Cannula 2.00 09/22/22 01:00 90 15 125/91 (104) 97 Nasal Cannula 2.00 09/22/22 01:00 90 09/22/22 00:45 91 14 101/82 (89) 95 Nasal Cannula 2.00 09/22/22 00:30 90 15 112/74 (87) 96 Nasal Cannula 2.00 09/22/22 00:30 90 09/22/22 00:24 93 14 107/72 (81) 95 Nasal Cannula 2.00 09/22/22 00:10 95 Nasal Cannula 2.00 09/22/22 00:10 37.1 Nasal Cannula 09/22/22 00:03 36.8 93 12 116/81 96 Nasal Cannula 2.00 09/21/22 21:44 39.4 09/21/22 21:10 39.4 116 26 111/72 (85) 95 Room Air I & O 09/22/22 07:00 Intake Total 2450 ml Balance 2450 ml Lab Results Laboratory Tests 09/21/22 21:25: White Blood Count 16.9H, Red Blood Count 4.18, Hemoglobin 12.3, Hematocrit 37, Mean Corpuscular Volume 89, Mean Corpuscular Hemoglobin 29, Mean Corpuscular Hemoglobin Concent 33, Red Cell Distribution Width 12.5, Platelet Count 363, Mean Platelet Volume 8.7L, Immature Granulocyte % (Auto) 0, Neutrophils (%) (Auto) 84H, Lymphocytes (%) (Auto) 8L, Monocytes (%) (Auto) 6, Eosinophils (%) (Auto) 1, Basophils (%) (Auto) 0, Neutrophils # (Auto) 14.2H, Lymphocytes # (Auto) 1.4, Monocytes # (Auto) 1.0, Eosinophils # (Auto) 0.2, Basophils # (Auto) 0.1, Immature Granulocyte # (Auto) 0.1, Neutrophils % (Manual) 84, Lymphocytes % (Manual) 7, Monocytes % (Manual) 6, Basophils % (Manual) 1, Band Neutrophils 2, Toxic Granulation 1+, Platelet Estimate NORMAL, Blood Morphology Comment NORMAL, Prothrombin Time 12.0L, INR Comment 0.8, Activated Partial Thromboplast Time 32, Sodium Level 133L, Potassium Level 3.3L, Chloride Level 94L, Carbon Dioxide Level 26, Anion Gap 13, Blood Urea Nitrogen 14, Creatinine 1.18, Estimat Glomerular Filtration Rate 55, BUN/Creatinine Ratio 12, Glucose Level 117H, Lactic Acid Level 1.87, Calcium Level 9.2, Corrected Calcium , Magnesium Level 1.6, Total Bilirubin 0.5, Aspartate Amino Transf (AST/SGOT) 38H, Alanine Aminotransferase (ALT/SGPT) 26, Alkaline Phosphatase 107, Total Protein 8.1, Albumin 4.7H, Serum Alcohol < 10 09/22/22 03:25: White Blood Count 12.8H, Red Blood Count 3.38L, Hemoglobin 10.1L, Hematocrit 30L , Mean Corpuscular Volume 89, Mean Corpuscular Hemoglobin 30, Mean Corpuscular Hemoglobin Concent 34, Red Cell Distribution Width 12.6, Platelet Count 318, Mean Platelet Volume 9.1, Immature Granulocyte % (Auto) 0, Neutrophils (%) (Auto) 83H, Lymphocytes (%) (Auto) 10L, Monocytes (%) (Auto) 7, Eosinophils (%) (Auto) 1, Basophils (%) (Auto) 0, Neutrophils # (Auto) 10.5H, Lymphocytes # (Auto) 1.3, Monocytes # (Auto) 0.8, Eosinophils # (Auto) 0.1, Basophils # (Auto) 0.0, Immature Granulocyte # (Auto) 0.1, Sodium Level 134L, Potassium Level 4.0, Chloride Level 100, Carbon Dioxide Level 26, Anion Gap 8, Blood Urea Nitrogen 14, Creatinine 1.00, Estimat Glomerular Filtration Rate 67, BUN/Creatinine Ratio 14, Glucose Level 122H, Calcium Level 8.2L, Corrected Calcium 8.6, Total Bilirubin 0.6, Aspartate Amino Transf (AST/SGOT) 141H, Alanine Aminotransferase (ALT/SGPT) 65H, Alkaline Phosphatase 89, Total Protein 6.1L, Albumin 3.5 09/22/22 10:19: Urine Color YELLOW, Urine Clarity CLEAR, Urine pH 5.5, Urine Specific [place] 1.010L, Urine Protein NEGATIVE, Urine Glucose (UA) NEGATIVE, Urine Ketones NEGATIVE, Urine Nitrite NEGATIVE, Urine Bilirubin NEGATIVE, Urine Urobilinogen 0.2, Urine Leukocyte Esterase 1+H, Urine RBC (Auto) NEGATIVE, Urine RBC RARE, Urine WBC 0-2, Urine Squamous Epithelial Cells 0-2, Urine Crystals NONE, Urine Bacteria NEGATIVE, Urine Casts NONE, Urine Mucus NEGATIVE, Urine Culture Indicated CULTURE PENDING, Urine Opiates Screen POSITIVEH, Urine Oxycodone S creen POSITIVEH, Urine Methadone Screen NEGATIVE, Urine Propoxyphene Screen NEGATIVE, Urine Barbiturates Screen NEGATIVE, Ur Tricyclic Antidepressants Screen POSITIVEH, Urine Phencyclidine Screen NEGATIVE, Urine Amphetamines Screen POSITIVEH, Urine Methamphetamines Screen NEGATIVE, Urine Benzodiazepines Screen POSITIVEH, Urine Cocaine Screen NEGATIVE, Urine Cannabinoids Screen NEGATIVE Assessment and Plan Assessment Right Finger Cellulitis Problem List Right Finger Cellulitis Plan Agree with IV antibiotics. Currently do not see a need for surgical intervention. Will monitor for abscess formation that would require drainage. Final Diagonsis Right Finger Cellulitis Level of the visit: Level 3 MICHELLE CHAVEZ MD September 22, 2022 15:03
--- NOTE | 2022-09-22 15:46 | Consultation - Surgery ---
History of Present Illness History of Present Illness Patient Consulted On(herminia/time) 09/22/22 15:17 Date Seen by Provider: September 22, 2022 Time Seen by Provider: 08:42 History of Present Illness 57 year old female. Had a cut to right second finger on palmar side. Had redeness and swelling. Significant pain to the right finger. Can barely move and moving make worsening pain. Nothing really making it better. Not sure how she cut it. Had fever. Swelling worsened to where she had to cut rings off hand. Went to ED for further ev aluation. Denies n/v sweats chills shortness of breath or chest pain at this time. Ct right upper extremity: Findings suspect for cellulitis involving the 2nd digit of the right hand however no acute fracture, dislocation or abscess. Allergies and Home Medications Allergies Coded Allergies: Melissa Known Allergies (Verified Allergy, Unknown, 09/14/05) Patient Home Medication List Home Medication List Reviewed: Yes Alprazolam (Alprazolam) 0.5 Mg Tablet, 0.5 MG PO QID PRN for ANXIETY, (Reported) Entered as Reported by: FREEDOM ZAMORA on 09/22/221223 Last Action: Continued Amitriptyline HCl (Amitriptyline HCl) 150 Mg Tablet, 150 MG PO HS, (Reported) Entered as Reported by: MOR WATTS on 09/21/222208 Last Action: Continued Dextroamphetamine/Amphetamine (Amphetamine Salts 20 mg Tablet) 20 Mg Tablet, 10 MG PO BID, (Reported) Entered as Reported by: MOR WATTS on 09/21/222208 Last Action: Held Escitalopram Oxalate (Escitalopram Oxalate) 20 Mg Tablet, 20 MG PO DAILY, (Reported) Entered as Reported by: MOR WATTS on 09/21/222208 Last Action: Converted Escitalopram Oxalate (Escitalopram Oxalate) 10 Mg Tablet, 10 MG PO DAILY, (Reported) Entered as Reported by: FREEDOM ZAMORA on 09/22/221219 Last Action: Converted Furosemide (Furosemide) 40 Mg Tablet, 40 MG PO BID, (Reported) Entered as Reported by: MOR WATTS on 09/21/222208 Last Action: Held Magnesium Oxide (Magnesium) 400 Mg Magnesium Tablet, 800 MG PO DAILY, (Reported) Entered as Reported by: FREEDOM ZAMORA on 09/22/221225 Last Action: Converted Meloxicam (Meloxicam) 15 Mg Tablet, 15 MG PO DAILY, (Reported) Entered as Reported by: FREEDOM ZAMORA on 09/22/221224 Last Action: Converted Metoprolol Succinate (Metoprolol Succinate) 25 Mg Tab.er.24h, 25 MG PO DAILY, (Reported) Entered as Reported by: FREEDOM ZAMORA on 09/22/221224 Last Action: Continued Oxycodone HCl/Acetaminophen (Oxycodone-Acetaminophen 10-325) 10 Mg-325 Mg Tablet, 1 EACH PO TID, (Reported) Entered as Reported by: MOR WATTS on 09/21/222208 Last Action: Continued Pantoprazole Sodium (Pantoprazole Sodium) 40 Mg Tablet.dr, 40 MG PO DAILY, (Reported) Entered as Reported by: MOR WATTS on 09/21/222208 Last Action: Continued Potassium Chloride (Potassium Chloride) 10 Meq Capsule.er, 10 MEQ PO DAILY PRN for FLUID RETENTION, (Reported) Entered as Reported by: MOR WATTS on 09/21/222208 Last Action: Reviewed Vit W-Ca,Fe,FA(<1 mg) ( Vitamins) 27 Mg Iron-800 Mcg Tablet, 1 EACH PO DAILY, (Reported) Entered as Reported by: FREEDOM ZAMORA on 09/22/221225 Last Action: Held Past Ahysrsr-Vxqsct-Ymnlqt Hx Patient Social History Smoking Status: Former Smoker Type Used: Cigarettes 2nd Hand Smoke Exposure: No Recent Hopitalizations: No Alcohol Use?: No Have you traveled recently?: No Immunizations Up To Date Tetanus Booster (TDap): Less than 5yrs Date of Influenza Vaccine: Jan 24, 2020 Seasonal Allergies Seasonal Allergies: No Surgeries History of Surgeries: Yes (LOOP RECORDER 11/06/2020) Surgeries: Appendectomy, Cardiac, Gallbladder, Hysterectomy, Tubal Ligation Respiratory History of Respiratory Disorde: No Cardiovascular History of Cardiac Disorders: Yes (LOOP RECORDER 11/06/2020) Cardiac Disorders: High Cholesterol, Palpitations, Syncope Neurological History of Neurological Disord: No Reproductive System Hx Reproductive Disorders: Yes 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 Genitourinary History of Genitourinary Disor: Yes Genitourinary Disorders: Kidney Stones Gastrointestinal History of Gastrointestinal Di: Yes Gastrointestinal Disorders: Gastroesophageal Reflux Musculoskeletal History of Musculoskeletal Dis: Yes (CHRONIC OPIATE USE) Musculoskeletal Disorders: Chronic Back Pain Endocrine History of Endocrine Disorders: No HEENT History of HEENT Disorders: No Cancer History of Cancer: No Psychosocial History of Psychiatric Problem: Yes Behavioral Health Disorders: Anxiety Integumentary History of Skin or Integumenta: No Blood Transfusions History of Blood Disorders: No Adverse Reaction to a Blood Tr: No Reviewed Nursing Assessment Reviewed/Agree w Nursing PMH: Yes Family Medical History Significant Family History: No Pertinent Family Hx Review of Systems-General Constitutional: No chills, No diaphoresis; fever EENTM: No blurred vision, No double vision Respiratory: No cough, No dyspnea on exertion Cardiovascular: No chest pain, No palpitations Gastrointestinal: No nausea, No vomiting Genitourinary: No decreased output, No discharge Musculoskeletal: No back pain; joint pain Skin: change in color; No change in hair/nails Psychiatric/Neurological: Denies Anxiety, Denies Depressed, Denies Emotional Problems All Other Systems Reviewed Negative Unless Noted: Yes (Negative excepted noted.) Physical Exam-General Problems Physical Exam Vital Signs Vital Signs - First Documented 09/21/22 09/22/22 21:10 00:03 Temp 39.4 Pulse 116 Resp 26 B/P (MAP) 111/72 (85) Pulse Ox 95 O2 Delivery Room Air O2 Flow Rate 2.00 Capillary Refill : Less Than 3 Seconds General Appearance: WD/WN, no apparent distress HEENT: PERRL/EOMI, normal ENT inspection Neck: non-tender, supple Respiratory: chest non-tender, no respiratory distress, no accessory muscle use Cardiovascular: regular rate, rhythm, no JVD Gastrointestinal: non tender, soft Rectal: deferred Back: no CVA tenderness, no vertebral tenderness Extremities: swelling (right hand 2nd finger with small palmar laceration, extreme pain with trying to flex the finger, surrounding erythema.), other Neurologic/Psychiatric: alert, normal mood/affect, oriented x 3 Skin: warm/dry, other (erythema as above) Lymphatic: no adenopathy Data Review Labs Laboratory Tests 09/21/22 21:25: White Blood Count 16.9H, Red Blood Count 4.18, Hemoglobin 12.3, Hematocrit 37, Mean Corpuscular Volume 89, Mean Corpuscular Hemoglobin 29, Mean Corpuscular Hem oglobin Concent 33, Red Cell Distribution Width 12.5, Platelet Count 363, Mean Platelet Volume 8.7L, Immature Granulocyte % (Auto) 0, Neutrophils (%) (Auto) 84H, Lymphocytes (%) (Auto) 8L, Monocytes (%) (Auto) 6, Eosinophils (%) (Auto) 1, Basophils (%) (Auto) 0, Neutrophils # (Auto) 14.2H, Lymphocytes # (Auto) 1.4, Monocytes # (Auto) 1.0, Eosinophils # (Auto) 0.2, Basophils # (Auto) 0.1, Immature Granulocyte # (Auto) 0.1, Neutrophils % (Manual) 84, Lymphocytes % (Manual) 7, Monocytes % (Manual) 6, Basophils % (Manual) 1, Band Neutrophils 2, Toxic Granulation 1+, Platelet Estimate NORMAL, Blood Morphology Comment NORMAL, Prothrombin Time 12.0L, INR Comment 0.8, Activated Partial Thromboplast Time 32, Sodium Level 133L, Potassium Level 3.3L, Chloride Level 94L, Carbon Dioxide Level 26, Anion Gap 13, Blood Urea Nitrogen 14, Creatinine 1.18, Estimat Glomerular Filtration Rate 55, BUN/Creatinine Ratio 12, Glucose Level 117H, Lactic Acid Level 1.87, Calcium Level 9.2, Corrected Calcium , Magnesium Level 1.6, Total Bilirubin 0.5, Aspartate Amino Transf (AST/SGOT) 38H, Alanine Aminotransferase (ALT/SGPT) 26, Alkaline Phosphatase 107, Total Protein 8.1, Albumin 4.7H, Serum Alcohol < 10 09/22/22 03:25: White Blood Count 12.8H, Red Blood Count 3.38L, Hemoglobin 10.1L, Hematocrit 30L , Mean Corpuscular Volume 89, Mean Corpuscular Hemoglobin 30, Mean Corpuscular Hemoglobin Concent 34, Red Cell Distribution Width 12.6, Platelet Count 318, Mean Platelet Volume 9.1, Immature Granulocyte % (Auto) 0, Neutrophils (%) (Auto) 83H, Lymphocytes (%) (Auto) 10L, Monocytes (%) (Auto) 7, Eosinophils (%) (Auto) 1, Basophils (%) (Auto) 0, Neutrophils # (Auto) 10.5H, Lymphocytes # (Auto) 1.3, Monocytes # (Auto) 0.8, Eosinophils # (Auto) 0.1, Basophils # (Auto) 0.0, Immature Granulocyte # (Auto) 0.1, Sodium Level 134L, Potassium Level 4.0, Chloride Level 100, Carbon Dioxide Level 26, Anion Gap 8, Blood Urea Nitrogen 14, Creatinine 1.00, Estimat Glomerular Filtration Rate 67, BUN/Creatinine Ratio 14, Glucose Level 122H, Calcium Level 8.2L, Corrected Calcium 8.6, Total Bilirubin 0.6, Aspartate Amino Transf (AST/SGOT) 141H, Alanine Aminotransferase (ALT/SGPT) 65H, Alkaline Phosphatase 89, Total Protein 6.1L, Albumin 3.5 09/22/22 10:19: Urine Color YELLOW, Urine Clarity CLEAR, Urine pH 5.5, Urine Specific [place] 1.010L, Urine Protein NEGATIVE, Urine Glucose (UA) NEGATIVE, Urine Ketones NEGATIVE, Urine Nitrite NEGATIVE, Urine Bilirubin NEGATIVE, Urine Urobilinogen 0.2, Urine Leukocyte Esterase 1+H, Urine RBC (Auto) NEGATIVE, Urine RBC RARE, Urine WBC 0-2, Urine Squamous Epithelial Cells 0-2, Urine Crystals NONE, Urine Bacteria NEGATIVE, Urine Casts NONE, Urine Mucus NEGATIVE, Urine Culture Indicated CULTURE PENDING, Urine Opiates Screen POSITIVEH, Urine Oxycodone Screen POSITIVEH, Urine Methadone Screen NEGATIVE, Urine Propoxyphene Screen NEGATIVE, Urine Barbiturates Screen NEGATIVE, Ur Tricyclic Antidepressants Screen POSITIVEH, Urine Phencyclidine Screen NEGATIVE, Urine Amphetamines Screen POSITIVEH, Urine Methamphetamines Screen NEGATIVE, Urine Benzodiazepines Screen POSITIVEH, Urine Cocaine Screen NEGATIVE, Urine Cannabinoids Screen NEGATIVE Assessment/Plan Assessment/Plan Assessment/Plan right 2nd finger laceration and cellulitis right 2nd finger pain concern for tenosynovitis by phyiscal exam discussed with Dr. Henson and she will get hold of Dr. Linares, if he is not available would transfer to where hand surgeon is available. Continue antibiotics. Will sign off, call if needed. OJNATHAN SERVIN DO September 22, 2022 15:46
[2022-09-22] MEDS ORDERED: PATIENT MAY USE OWN MEDS, ALL MC SCH (17:30)
[2022-09-22] MEDS: ENOXAPARIN 40 MG/0.4 ML (LOVENOX) SYR SQ SCH (18:20)
[2022-09-22] MEDS: AMITRIPTYLINE 150 MG (ELAVIL) TABLET PO SCH (20:02)
[2022-09-22] MEDS: oxyCODONE/APAP 10/325MG (PERCOCET 10) TABLET PO SCH (20:02)
[2022-09-23] VITALS (14 sets, daily range): BP systolic 98–122; BP diastolic 62–80
[2022-09-23] MEDS: KETOROLAC 30 MG/ML VIAL IVP SCH ×5 (00:05→23:20)
[2022-09-23] MEDS: fentaNYL INJ 100 MCG/2 ML AMP IVP PRN ×6 (03:42→21:18)
[2022-09-23] MEDS: PIPERACILLIN SODIUM/TAZOBACTAM 4.5 GM in NS (IVPB) 100 ML IV SCH ×3 (03:43→21:17)
[2022-09-23 04:38] LABS: BASOPHILS # (AUTO) 0.1 10^3/uL (0.0-0.1); BASOPHILS % (AUTO) 0 % (0-10); EOSINOPHILS # (AUTO) 0.4 10^3/uL (0.0-0.3); EOSINOPHILS % (AUTO) 4 % (0-10); HEMATOCRIT 31 % (35-52); HEMOGLOBIN 10.2 g/dL (11.5-16.0); LYMPHOCYTES # (AUTO) 1.7 10^3/uL (1.0-4.0); LYMPHOCYTES % (AUTO) 14 % (12-44); MEAN CORPUSCULAR HEMOGLOBIN 30 pg (25-34); MEAN CORPUSCULAR HGB CONC 33 g/dL (32-36); MEAN CORPUSCULAR VOLUME 91 fL (80-99); MEAN PLATELET VOLUME 9.3 fL (9.0-12.2); MONOCYTES % (AUTO) 8 % (0-12); NEUTROPHILS % (AUTO) 74 % (42-75); PLATELET COUNT 276 10^3/uL (130-400); WHITE BLOOD COUNT 12.2 10^3/uL (4.3-11.0)
[2022-09-23 05:10] LABS: ALBUMIN 3.3 GM/DL (3.2-4.5); BILIRUBIN,TOTAL 0.4 MG/DL (0.1-1.0); CALCIUM 8.4 MG/DL (8.5-10.1); CREATININE SERUM 1.14 MG/DL (0.60-1.30); POTASSIUM 4.5 MMOL/L (3.6-5.0)
[2022-09-23] MEDS: ALPRAZolam 0.5 MG (XANAX) TAB PO PRN (06:02)
[2022-09-23] MEDS: MAGNESIUM OXIDE (MAG-OX)400 MG TAB PO SCH (08:00)
[2022-09-23] MEDS ORDERED: NON-FORMULARY MEDICATION 1 EA EA (Meloxicam 15 MG) PO SCH (09:00)
[2022-09-23] MEDS: oxyCODONE/APAP 10/325MG (PERCOCET 10) TABLET PO SCH ×3 (09:00→21:17)
[2022-09-23] MEDS: ESCITALOPRAM 10 MG TAB PO SCH (09:00)
[2022-09-23] MEDS: ESCITALOPRAM 20 MG TAB PO SCH (09:00)
[2022-09-23] MEDS ORDERED: NON-FORMULARY MEDICATION 1 EA EA (Escitalopram Oxalate 10 MG) PO SCH (09:00)
[2022-09-23] MEDS ORDERED: NON-FORMULARY MEDICATION 1 EA EA (Escitalopram Oxalate 20 MG) PO SCH (09:00)
[2022-09-23] MEDS: PANTOPRAZOLE 40 MG (PROTONIX) TAB PO SCH (09:00)
[2022-09-23] MEDS: VANCOMYCIN 750 MG/NS 250 ML IVPB IV SCH ×4 (10:00→23:21)
[2022-09-23] MEDS: VASOPRESSIN INJECTION 20 UNIT in NS (IVPB) 100 ML IV SCH ×2 (10:36→21:51)
--- NOTE | 2022-09-23 11:17 | Progress Note - Hospitalist ---
Subjective HPI/CC On Admission Date Seen by Provider: September 23, 2022 Pt is a 57yoCF who presented to the Er due to finger paina nd swelling. She reported to the ER that she got scratched by a cat but to me she states it started after cleaning her fridge out and spraying ant killer. She was concerned she got the chemicals in a scratch and it caused this. She went to work and her symptoms continued to worsen. She actually went to the urgent care at her work and was given oral antibiotics. She states she requested IM/IV abx but was told they were on back order and she could only get oral. She took her first dose but when she got home her swelling was so bad her had to cut a ring off her finger. She was found to have a leukocytosis and was febrile on arrival. She had to have another ring cut off of her finger in the ER as well. This morning she reports she is still having pain and that the dilaudid is not helping. She is requesting fentanyl instead as that has historically worked for her. She denies feeling any better. We discussed need for surgical evaluation and even potential transfer if surgeon felt unable to manage here. She is agreeable to this plan. Subjective/Events-last exam Pt reports having worsening pain and edema. Erythema spreading as well. Returned to room to exam with Dr Linares. Focused Exam Lactate Level 09/21/22 21:25: Lactic Acid Level 1.87 Objective Exam Vital Signs Vital Signs Date Time Temp Pulse Resp B/P (MAP) Pulse Ox O2 Delivery O2 Flow Rate FiO2 09/23/22 03:43 37.5 09/23/22 01:00 73 09/23/22 00:00 19 105/71 (85) 99 Nasal Cannula 2.00 Capillary Refill : Less Than 3 Seconds General Appearance: No Apparent Distress, WD/WN Respiratory: Lungs Clear, No Respiratory Distress Cardiovascular: Regular Rate, Rhythm, No Edema Extremity: Other (right index finger with worsening edema and erythema, cut with no further drainage but erythem extending up arm, decreased pROM today from yeserday) Neurologic/Psychiatric: Alert, Oriented x3 Results/Procedures Lab Laboratory Tests 09/23/22 03:35 Patient resulted labs reviewed. Imaging: Reviewed Imaging Report Assessment/Plan Assessment and Plan Assess & Plan/Chief Complaint Sepsis due to cellulitis of right index finger CT on admission shows no abscess, gas, or evidence of tenosynovitis but she does have significant edema and warmth of hand Continue IV abx Blood cx with NGTD Erythema and edema worsening- discussed with Dr Linares- planning for washout today Orthopedic Surgery consulted, appreciate recs make NPO for surgery ADD Anxiety Chronic pain Continue home meds as able DVT ppx: Lovenox Diagnosis/Problems Diagnosis/Problems (1) Sepsis Status: Acute (2) Cellulitis of right index finger Status: Acute AIYANA HARDING MD September 23, 2022 11:16
[2022-09-23] MEDS ORDERED: proPOfol 200 MG/20 ML (DIPRIVAN) VIAL IV ONE (12:18)
[2022-09-23] MEDS ORDERED: ONDANSETRON 4 MG/2 ML (SDV) Z0FRAN ONE (12:18)
[2022-09-23] MEDS ORDERED: fentaNYL INJ 100 MCG/2 ML AMP ONE (12:18)
[2022-09-23] MEDS ORDERED: LIDOCAINE PF 2% 5 ML (XYLOCAINE) VIAL ONE (12:18)
[2022-09-23] MEDS ORDERED: SEVOFLURANE (ULTANE) 15 ML INHAL SOLN ONE ×2 (12:18→13:22)
[2022-09-23] MEDS ORDERED: MIDAZOLAM 2 MG/2 ML (VERSED) VIAL ONE (12:18)
[2022-09-23] MEDS ORDERED: METOCLOPRAMIDE INJ 10 MG/2 ML (REGLAN) ONE (12:50)
[2022-09-23] MEDS ORDERED: PHENYLEPHRINE 100 MCG/ML 10 ML (ANESTHESIA) SYR ONE (12:52)
[2022-09-23] MEDS ORDERED: SUCCINYLCHOLINE INJ 20 MG/1 ML 10 ML VIAL ONE (12:57)
[2022-09-23] MEDS ORDERED: ROCURONIUM 50 MG/5 ML (ZEMURON) VIAL IV ONE (12:57)
[2022-09-23] MEDS ORDERED: NEOSTIGMINE 3 MG/3 ML VIAL ONE (13:13)
[2022-09-23] MEDS ORDERED: GLYCOPYRROLATE 0.2 MG/ML (ROBINUL) 2 ML VIAL ONE (13:13)
[2022-09-23] MEDS ORDERED: KETOROLAC 30 MG/ML VIAL ONE (13:14)
[2022-09-23] MEDS: ENOXAPARIN 40 MG/0.4 ML (LOVENOX) SYR SQ SCH (15:00)
--- NOTE | 2022-09-23 16:19 | Operative Report - Ortho ---
Operative Report Surgeon (s)/Technology Internship (s) Surgeon MICHELLE CHAVEZ MD Technology Internship n/a Pre-Operative Diagnosis Right Index Finger Flexor Tenosynovitis Post-Operative Diagnosis same Operative Report Date of Procedure: September 23, 2022 Name of Procedure Performed: Incision and Drainage of Right Index Flexor Tendon Sheath Description & Findings After obtaining informed consent and marking the patient in the preoperative holding area, the patient was taken to the operating room. General anesthesia was induced. Surgical timeout was taken. The right upper extremity was prepped and draped in the usual sterile fashion. Incision was made at the distal flexion crease of the index finger and carried down to the tendon sheath. The tendon sheath was opened. Incision was made at the proximal flexion crease and disection was carried down to the tendon sheath. The tendon sheath was opened with return of purulent fluid. Swab was taken and specimen was sent. 18 gauge angiocath was inserted and the tendon sheath was irrigated with normal saline. After irrigation, no further evidence of purulence was noted. The wounds were packed with 1/4" iodoform gauze and a bulky dressing was placed. Patient tolerated the procedure well and was stable to recovery room. Anesthesia Type General Estimated Blood Loss minimal Packing as above. Specimen(s) collected/removed Swab sent for gram stain/culture MICHELLE CHAVEZ MD September 23, 2022 16:19
[2022-09-23] MEDS: LACTATED RINGERS 1,000 ML IV SCH ×2 (17:54→20:13)
[2022-09-23] MEDS: NOREPINEPHRINE 8 MG/250 ML 250 ML IV SCH (17:55)
[2022-09-23] MEDS: AMITRIPTYLINE 150 MG (ELAVIL) TABLET PO SCH (21:17)
[2022-09-24 04:10] VITALS: BP 105/65
[2022-09-24] MEDS: fentaNYL INJ 100 MCG/2 ML AMP IVP PRN ×4 (04:16→22:15)
[2022-09-24] MEDS: PIPERACILLIN SODIUM/TAZOBACTAM 4.5 GM in NS (IVPB) 100 ML IV SCH ×3 (04:16→19:59)
[2022-09-24] MEDS: KETOROLAC 30 MG/ML VIAL IVP SCH ×3 (05:33→17:21)
[2022-09-24] MEDS: NOREPINEPHRINE 8 MG/250 ML 250 ML IV SCH (05:36)
[2022-09-24 05:51] LABS: BASOPHILS % (AUTO) 0 % (0-10); EOSINOPHILS % (AUTO) 0 % (0-10); HEMATOCRIT 28 % (35-52); HEMOGLOBIN 9.2 g/dL (11.5-16.0); LYMPHOCYTES # (AUTO) 1.4 10^3/uL (1.0-4.0); LYMPHOCYTES % (AUTO) 8 % (12-44); MEAN CORPUSCULAR HEMOGLOBIN 30 pg (25-34); MEAN CORPUSCULAR HGB CONC 32 g/dL (32-36); MEAN CORPUSCULAR VOLUME 91 fL (80-99); MEAN PLATELET VOLUME 9.4 fL (9.0-12.2); MONOCYTES # (AUTO) 0.9 10^3/uL (0.0-1.0); MONOCYTES % (AUTO) 5 % (0-12); NEUTROPHILS # (AUTO) 14.5 10^3/uL (1.8-7.8); NEUTROPHILS % (AUTO) 86 % (42-75); PLATELET COUNT 295 10^3/uL (130-400)
[2022-09-24 06:01] LABS: BILIRUBIN,TOTAL 0.3 MG/DL (0.1-1.0); CALCIUM 8.4 MG/DL (8.5-10.1); CREATININE SERUM 0.89 MG/DL (0.60-1.30); POTASSIUM 4.3 MMOL/L (3.6-5.0); TOTAL PROTEIN 5.5 GM/DL (6.4-8.2)
[2022-09-24 06:34] LABS: BAND NEUTROPHILS 5 %; LYMPHOCYTES % (MANUAL) 8 %; MONOCYTES % (MANUAL) 4 %; NEUTROPHILS % (MANUAL) 83 %; RBC MORPH NORMAL
[2022-09-24] MEDS: MAGNESIUM OXIDE (MAG-OX)400 MG TAB PO SCH (07:54)
[2022-09-24] MEDS: PANTOPRAZOLE 40 MG (PROTONIX) TAB PO SCH (08:03)
[2022-09-24] MEDS: VANCOMYCIN 750 MG/NS 250 ML IVPB IV SCH ×2 (09:14)
[2022-09-24] MEDS: oxyCODONE/APAP 10/325MG (PERCOCET 10) TABLET PO SCH ×3 (09:14→20:21)
--- NOTE | 2022-09-24 11:26 | Progress Note - Hospitalist ---
Subjective HPI/CC On Admission Date Seen by Provider: September 24, 2022 Pt is a 57yoCF who presented to the Er due to finger paina nd swelling. She reported to the ER that she got scratched by a cat but to me she states it started after cleaning her fridge out and spraying ant killer. She was concerned she got the chemicals in a scratch and it caused this. She went to work and her symptoms continued to worsen. She actually went to the urgent care at her work and was given oral antibiotics. She states she requested IM/IV abx but was told they were on back order and she could only get oral. She took her first dose but when she got home her swelling was so bad her had to cut a ring off her finger. She was found to have a leukocytosis and was febrile on arrival. She had to have another ring cut off of her finger in the ER as well. This morning she reports she is still having pain and that the dilaudid is not helping. She is requesting fentanyl instead as that has historically worked for her. She denies feeling any better. We discussed need for surgical evaluation and even potential transfer if surgeon felt unable to manage here. She is agreeable to this plan. Subjective/Events-last exam Pt reports feeling about the same. Still having pain but streaking up arm is better. less red and slightly warm. Dr. Linares at bedside to assess surgical wound. Focused Exam Lactate Level 09/21/22 21:25: Lactic Acid Level 1.87 Objective Exam Vital Signs Vital Signs Date Time Temp Pulse Resp B/P (MAP) Pulse Ox O2 Delivery O2 Flow Rate FiO2 09/24/22 04:10 74 11 105/65 (78) Room Air 09/23/22 23:30 36.2 91 09/23/22 18:00 2.00 Capillary Refill : Less Than 3 SecondsLess Than 3 Seconds General Appearance: No Apparent Distress, WD/WN Respiratory: Lungs Clear, No Respiratory Distress Cardiovascular: Regular Rate, Rhythm, No Murmur Extremity: Other (edema of right index finger about the same as yesterday, two surgical incisions noted and skin still appears slightly erythematous but ) Neurologic/Psychiatric: Alert, Oriented x3 Results/Procedures Lab Laboratory Tests 09/24/22 05:15 Patient resulted labs reviewed. Imaging: Reviewed Imaging Report Assessment/Plan Assessment and Plan Assess & Plan/Chief Complaint Sepsis due to cellulitis and tenosynovitis of right index finger POD #1 CT on admission shows no abscess, gas, or evidence of tenosynovitis but purulent fluid from tendon sheath in OR yesterday Continue IV abx Blood cx with NGTD Await wound cultures Orthopedic Surgery consulted, appreciate recs- dressing changes per Dr Linares Fentanyl for pain Transaminitis trending down ADD Anxiety Chronic pain Continue home meds as able DVT ppx: Lovenox Diagnosis/Problems Diagnosis/Problems (1) Sepsis Status: Acute (2) Cellulitis of right index finger Status: Acute AIYANA HARDING MD September 24, 2022 11:26
[2022-09-24] MEDS ORDERED: VANCOMYCIN INJECTION 0.1 MG in NS (IVPB) 250 ML IV SCH (11:30)
[2022-09-24] MEDS: VASOPRESSIN INJECTION 20 UNIT in NS (IVPB) 100 ML IV SCH ×2 (11:34→19:57)
--- NOTE | 2022-09-24 11:49 | Anesthesia-General Post-Op ---
General Patient Condition Mental Status/LOC: Same as Preop Cardiovascular: Satisfactory Nausea/Vomiting: Absent Respiratory: Satisfactory Pain: Controlled Complications: Absent Post Op Complications Complications None Follow Up Care/Instructions Patient Instructions None needed. Anesthesia/Patient Condition Patient Condition Patient is doing well, no complaints, stable vital signs, no apparent adverse anesthesia problems. No complications reported per nursing. SAILAJA ROSE CRNA September 24, 2022 11:49
[2022-09-24 12:00] VITALS: BP 87/57
[2022-09-24] MEDS ORDERED: TROUGH ORDER-PHARMACY XX NR (12:00)
[2022-09-24] MEDS: ESCITALOPRAM 10 MG TAB PO SCH (12:26)
[2022-09-24] MEDS: ESCITALOPRAM 20 MG TAB PO SCH (12:27)
[2022-09-24] MEDS ORDERED: VANCOMYCIN 750 MG/NS 250 ML IVPB IV SCH ×4 (13:00→21:00)
[2022-09-24] MEDS: ENOXAPARIN 40 MG/0.4 ML (LOVENOX) SYR SQ SCH (14:44)
--- NOTE | 2022-09-24 15:39 | Progress Note - Ortho ---
Progress Note Subjective Date of Exam 09/24/22 Chief Complaint POD #1 I&D of R Index Finger HPI/Events since last exam pain better, has some ongoing swelling, notes streaking improved Review of Systems - Allergies: Coded Allergies: TUANo Known Allergies (Verified Allergy, Unknown, 09/14/05) Home Meds Reported Medications Magnesium Oxide (Magnesium) 400 Mg Magnesium Tablet, 800 MG PO DAILY, TAB TAKES 2 (400MG) TABS 09/22/22 Vit W-Ca,Fe,FA(<1 mg) ( Vitamins) 27 Mg Iron-800 Mcg Tablet, 1 EACH PO DAILY, TAB 09/22/22 Meloxicam (Meloxicam) 15 Mg Tablet, 15 MG PO DAILY FILLED 07-16-2022 # DAY SUPPLY 09/22/22 Metoprolol Succinate (Metoprolol Succinate) 25 Mg Tab.er.24h, 25 MG PO DAILY 09/22/22 Alprazolam (Alprazolam) 0.5 Mg Tablet, 0.5 MG PO QID PRN for ANXIETY 09/22/22 Escitalopram Oxalate (Escitalopram Oxalate) 10 Mg Tablet, 10 MG PO DAILY TAKES ALONG with 20MG TO EQUAL 30MG FILLED 07-16-2022 # DAY SUPPLY 09/22/22 Oxycodone HCl/Acetaminophen (Oxycodone-Acetaminophen 10-325) 10 Mg-325 Mg Tablet, 1 EACH PO TID 09/21/22 Escitalopram Oxalate (Escitalopram Oxalate) 20 Mg Tablet, 20 MG PO DAILY TAKES ALONG WITH 10MG TO EQUAL 30MG 09/21/22 Amitriptyline HCl (Amitriptyline HCl) 150 Mg Tablet, 150 MG PO HS 09/21/22 Pantoprazole Sodium (Pantoprazole Sodium) 40 Mg Tablet.dr, 40 MG PO DAILY 09/21/22 Furosemide (Furosemide) 40 Mg Tablet, 40 MG PO BID 09/21/22 Potassium Chloride (Potassium Chloride) 10 Meq Capsule.er, 10 MEQ PO DAILY PRN for FLUID RETENTION 09/21/22 Dextroamphetamine/Amphetamine (Amphetamine Salts 20 mg Tablet) 20 Mg Tablet, 10 MG PO BID TAKES 1/2 OF (20MG) TAB 09/21/22 Objective Exam R Hand: Dressing changed this AM, swelling throughout finger, less erythema, slightly less tender, wounds repacked and wrapped Vital Signs Vital Signs Date Time Temp Pulse Resp B/P (MAP) Pulse Ox O2 Delivery O2 Flow Rate FiO2 09/24/22 12:15 111 09/24/22 12:00 37.1 99 19 87/57 (67) 97 Room Air 09/24/22 08:00 96 Room Air 09/24/22 07:22 72 09/24/22 04:10 74 11 105/65 (78) Room Air 09/24/22 01:00 79 09/23/22 23:30 36.2 89 16 98/62 (74) 91 Room Air 09/23/22 20:00 103 19 115/73 (87) 96 Room Air 09/23/22 20:00 94 Room Air 09/23/22 19:59 37.0 105 18 122/75 (91) 95 Room Air 09/23/22 19:00 117 09/23/22 18:00 99 11 114/80 (91) 97 Nasal Cannula 2.00 09/23/22 17:00 79 19 108/71 (83) 95 Nasal Cannula 2.00 I & O 09/24/22 07:00 Intake Total 2175 ml Output Total 1000 ml Balance 1175 ml Lab Results Laboratory Tests 09/24/22 05:15: White Blood Count 17.0H, Red Blood Count 3.11L, Hemoglobin 9.2L, Hematocrit 28L, Mean Corpuscular Volume 91, Mean Corpuscular Hemoglobin 30, Mean Corpuscular Hemoglobin Concent 32, Red Cell Distribution Width 13.0, Platelet Count 295, Mean Platelet Volume 9.4, Immature Granulocyte % (Auto) 1, Neutrophils (%) (Au to) 86H, Lymphocytes (%) (Auto) 8L, Monocytes (%) (Auto) 5, Eosinophils (%) (Auto) 0, Basophils (%) (Auto) 0, Neutrophils # (Auto) 14.5H, Lymphocytes # (Auto) 1.4, Monocytes # (Auto) 0.9, Eosinophils # (Auto) 0.0, Basophils # (Auto) 0.0, Immature Granulocyte # (Auto) 0.2H, Neutrophils % (Manual) 83, Lymphocytes % (Manual) 8, Monocytes % (Manual) 4, Band Neutrophils 5, Blood Morphology Comment NORMAL, Sodium Level 137, Potassium Level 4.3, Chloride Level 103, Carbon Dioxide Level 27, Anion Gap 7, Blood Urea Nitrogen 12, Creatinine 0.89, Estimat Glomerular Filtration Rate 77, BUN/Creatinine Ratio 13, Glucose Level 136H, Calcium Level 8.4L, Corrected Calcium 9.2, Total Bilirubin 0.3, Aspartate Amino Transf (AST/SGOT) 72H, Alanine Aminotransferase (ALT/SGPT) 84H, Alkaline Phosphatase 132, Total Protein 5.5L, Albumin 3.0L 09/24/22 12:12: Vancomycin Level Trough 31.4*H Microbiology 09/23/22 Gram Stain - Final, Resulted 09/23/22 Anaerobic Culture, Resulted Pending 09/23/22 Surgical Culture - Preliminary, Resulted Streptococcus pyogenes Grp A Culture In Progress 09/22/22 Urine Culture - Final, Complete NO GROWTH 09/21/22 Blood Culture - Preliminary, Resulted No growth Assessment and Plan Assessment R IF Flexor Tenosynovitis Problem List R IF Flexor Tenosynovitis Plan BID dressing changes IV antibiotics Final Diagonsis R IF Flexor Tenosynovitis Level of the visit: Level 3 (global) Focused Exam Lactate Level 09/21/22 21:25: Lactic Acid Level 1.87 MICHELLE CHAVEZ MD September 24, 2022 15:39
[2022-09-24 15:52] VITALS: BP 103/71
[2022-09-24] MEDS: FUROSEMIDE 40 MG (LASIX) TAB PO SCH (16:14)
[2022-09-24 17:00] VITALS: BP 102/73
[2022-09-24 19:49] VITALS: BP 124/78
[2022-09-24] MEDS: AMITRIPTYLINE 150 MG (ELAVIL) TABLET PO SCH (20:21)
[2022-09-24 23:49] VITALS: BP 95/66
[2022-09-25] MEDS: NOREPINEPHRINE 8 MG/250 ML 250 ML IV SCH ×2 (01:20→20:05)
[2022-09-25] MEDS: PIPERACILLIN SODIUM/TAZOBACTAM 4.5 GM in NS (IVPB) 100 ML IV SCH ×3 (03:44→20:05)
[2022-09-25] MEDS: fentaNYL INJ 100 MCG/2 ML AMP IVP PRN ×6 (03:54→20:49)
[2022-09-25 04:00] VITALS: BP 96/70
[2022-09-25 05:50] LABS: BASOPHILS # (AUTO) 0.1 10^3/uL (0.0-0.1); BASOPHILS % (AUTO) 0 % (0-10); EOSINOPHILS # (AUTO) 0.4 10^3/uL (0.0-0.3); EOSINOPHILS % (AUTO) 4 % (0-10); HEMATOCRIT 28 % (35-52); LYMPHOCYTES # (AUTO) 2.9 10^3/uL (1.0-4.0); LYMPHOCYTES % (AUTO) 24 % (12-44); MEAN CORPUSCULAR HEMOGLOBIN 30 pg (25-34); MEAN CORPUSCULAR HGB CONC 33 g/dL (32-36); MEAN CORPUSCULAR VOLUME 91 fL (80-99); MEAN PLATELET VOLUME 9.2 fL (9.0-12.2); MONOCYTES # (AUTO) 0.9 10^3/uL (0.0-1.0); MONOCYTES % (AUTO) 7 % (0-12); NEUTROPHILS # (AUTO) 7.8 10^3/uL (1.8-7.8); NEUTROPHILS % (AUTO) 65 % (42-75); PLATELET COUNT 356 10^3/uL (130-400); WHITE BLOOD COUNT 12.1 10^3/uL (4.3-11.0)
[2022-09-25] MEDS: KETOROLAC 30 MG/ML VIAL IVP SCH ×5 (05:59→23:34)
[2022-09-25] MEDS: FUROSEMIDE 40 MG (LASIX) TAB PO SCH ×2 (05:59→07:59)
[2022-09-25 06:03] LABS: ALBUMIN 3.1 GM/DL (3.2-4.5); POTASSIUM 4.2 MMOL/L (3.6-5.0)
[2022-09-25 06:04] LABS: CALCIUM 8.6 MG/DL (8.5-10.1)
[2022-09-25 06:06] LABS: TOTAL PROTEIN 5.9 GM/DL (6.4-8.2)
[2022-09-25 06:07] LABS: BILIRUBIN,TOTAL 0.2 MG/DL (0.1-1.0)
[2022-09-25 06:09] LABS: CREATININE SERUM 1.11 MG/DL (0.60-1.30)
[2022-09-25 07:46] VITALS: BP 105/80
[2022-09-25] MEDS: MAGNESIUM OXIDE (MAG-OX)400 MG TAB PO SCH (07:59)
[2022-09-25] MEDS ORDERED: TROUGH ORDER-PHARMACY XX NR (08:00)
--- NOTE | 2022-09-25 08:31 | Progress Note - Ortho ---
Progress Note Subjective Date of Exam 09/25/22 Chief Complaint POD #2 I&D of R IF Tendon Sheath HPI/Events since last exam ongoing throbbing, improved feeling Review of Systems - Allergies: Coded Allergies: NKANo Known Allergies (Verified Allergy, Unknown, 09/14/05) Home Meds Reported Medications Magnesium Oxide (Magnesium) 400 Mg Magnesium Tablet, 800 MG PO DAILY, TAB TAKES 2 (400MG) TABS 09/22/22 Vit W-Ca,Fe,FA(<1 mg) ( Vitamins) 27 Mg Iron-800 Mcg Tablet, 1 EACH PO DAILY, TAB 09/22/22 Meloxicam (Meloxicam) 15 Mg Tablet, 15 MG PO DAILY FILLED 07-16-2022 # DAY SUPPLY 09/22/22 Metoprolol Succinate (Metoprolol Succinate) 25 Mg Tab.er.24h, 25 MG PO DAILY 09/22/22 Alprazolam (Alprazolam) 0.5 Mg Tablet, 0.5 MG PO QID PRN for ANXIETY 09/22/22 Escitalopram Oxalate (Escitalopram Oxalate) 10 Mg Tablet, 10 MG PO DAILY TAKES ALONG with 20MG TO EQUAL 30MG FILLED 07-16-2022 # DAY SUPPLY 09/22/22 Oxycodone HCl/Acetaminophen (Oxycodone-Acetaminophen 10-325) 10 Mg-325 Mg Tabl et, 1 EACH PO TID 09/21/22 Escitalopram Oxalate (Escitalopram Oxalate) 20 Mg Tablet, 20 MG PO DAILY TAKES ALONG WITH 10MG TO EQUAL 30MG 09/21/22 Amitriptyline HCl (Amitriptyline HCl) 150 Mg Tablet, 150 MG PO HS 09/21/22 Pantoprazole Sodium (Pantoprazole Sodium) 40 Mg Tablet.dr, 40 MG PO DAILY 09/21/22 Furosemide (Furosemide) 40 Mg Tablet, 40 MG PO BID 09/21/22 Potassium Chloride (Potassium Chloride) 10 Meq Capsule.er, 10 MEQ PO DAILY PRN for FLUID RETENTION 09/21/22 Dextroamphetamine/Amphetamine (Amphetamine Salts 20 mg Tablet) 20 Mg Tablet, 10 MG PO BID TAKES 1/2 OF (20MG) TAB 09/21/22 Objective Exam R Index Finger: more swollen today, no purulent drainage, cap refill brisk Vital Signs Vital Signs Date Time Temp Pulse Resp B/P (MAP) Pulse Ox O2 Delivery O2 Flow Rate FiO2 5/4/23 07:46 36.2 71 14 105/80 (88) 92 Room Air 09/25/22 07:10 Room Air 0.00 09/25/22 07:00 74 09/25/22 04:00 36.7 70 13 96/70 (79) Room Air 09/25/22 01:00 80 09/24/22 23:49 36.9 83 15 95/66 (76) 98 Room Air 09/24/22 20:00 95 Room Air 09/24/22 19:57 105 124/78 09/24/22 19:49 105 38 124/78 (93) 95 09/24/22 19:00 93 09/24/22 17:00 82 16 102/73 (83) 95 Room Air 09/24/22 15:52 36.3 101 31 103/71 (82) 93 09/24/22 12:15 111 09/24/22 12:00 37.1 99 19 87/57 (67) 97 Room Air I & O 09/25/22 07:00 Intake Total 2268 ml Output Total 1800 ml Balance 468 ml Lab Results Laboratory Tests 09/24/22 12:12: Vancomycin Level Trough 31.4*H 09/25/22 04:58: White Blood Count 12.1H, Red Blood Count 3.04L, Hemoglobin 9.0L, Hematocrit 28L, Mean Corpuscular Volume 91, Mean Corpuscular Hemoglobin 30, Mean Corpuscular Hemoglobin Concent 33, Red Cell Distribution Width 13.3, Platelet Count 356, Mean Platelet Volume 9.2, Immature Granulocyte % (Auto) 0, Neutrophils (%) (Auto) 65, Lymphocytes (%) (Auto) 24, Monocytes (%) (Auto) 7, Eosinophils (%) (Auto) 4, Basophils (%) (Auto) 0, Neutrophils # (Auto) 7.8, Lymphocytes # (Auto) 2.9, Monocytes # (Auto) 0.9, Eosinophils # (Auto) 0.4H, Basophils # (Auto) 0.1, Immature Granulocyte # (Auto) 0.0, Sodium Level 140, Potassium Level 4.2, Chloride Level 103, Carbon Dioxide Level 26, Anion Gap 11, Blood Urea Nitrogen 13, Creatinine 1.11, Estimat Glomerular Filtration Rate 59, BUN/Creatinine Ratio 12, Glucose Level 97, Calcium Level 8.6, Corrected Calcium 9.3, Total Bilirubin 0.2, Aspartate Amino Transf (AST/SGOT) 37H, Alanine Aminotransferase (ALT/SGPT) 65H, Alkaline Phosphatase 113, Total Protein 5.9L, Albumin 3.1L 09/25/22 08:05: Microbiology 09/23/22 Gram Stain - Final, Resulted 09/23/22 Anaerobic Culture, Resulted Pending 09/23/22 Surgical Culture - Preliminary, Resulted Streptococcus pyogenes Grp A 09/22/22 Urine Culture - Final, Complete NO GROWTH 09/21/22 Blood Culture - Preliminary, Resulted No growth Assessment and Plan Assessment R IF Tenosynovitis s/p I&D Problem List R IF Tenosynovitis s/p I&D Plan Continue dressing changes Continue IV antibiotics As a precaution, will keep her NPO after midnight in the event that a secondary irrigation/debridement would be necessary Final Diagonsis R IF Tenosynovitis s/p I&D Level of the visit: Level 3 (global) MICHELLE CHAVEZ MD September 25, 2022 08:31
[2022-09-25] MEDS ORDERED: NON-FORMULARY MEDICATION 1 EA EA (Dextroamphetamine/Amphetamine (Amphetamine Salts 20 mg T PO SCH (09:00)
[2022-09-25] MEDS: oxyCODONE/APAP 10/325MG (PERCOCET 10) TABLET PO SCH ×3 (09:04→20:04)
[2022-09-25] MEDS: PANTOPRAZOLE 40 MG (PROTONIX) TAB PO SCH (09:05)
[2022-09-25] MEDS: ESCITALOPRAM 20 MG TAB PO SCH (09:07)
[2022-09-25] MEDS: ESCITALOPRAM 10 MG TAB PO SCH (09:07)
[2022-09-25] MEDS: VASOPRESSIN INJECTION 20 UNIT in NS (IVPB) 100 ML IV SCH ×2 (09:14→16:38)
[2022-09-25] MEDS: ALPRAZolam 0.5 MG (XANAX) TAB PO PRN ×2 (10:52→23:34)
[2022-09-25 11:42] VITALS: BP 121/72
--- NOTE | 2022-09-25 12:48 | Progress Note - Hospitalist ---
Subjective HPI/CC On Admission Date Seen by Provider: September 25, 2022 Pt is a 57yoCF who presented to the Er due to finger paina nd swelling. She reported to the ER that she got scratched by a cat but to me she states it started after cleaning her fridge out and spraying ant killer. She was concerned she got the chemicals in a scratch and it caused this. She went to work and her symptoms continued to worsen. She actually went to the urgent care at her work and was given oral antibiotics. She states she requested IM/IV abx but was told they were on back order and she could only get oral. She took her first dose but when she got home her swelling was so bad her had to cut a ring off her finger. She was found to have a leukocytosis and was febrile on arrival. She had to have another ring cut off of her finger in the ER as well. This morning she reports she is still having pain and that the dilaudid is not helping. She is requesting fentanyl instead as that has historically worked for her. She denies feeling any better. We discussed need for surgical evaluation and even potential transfer if surgeon felt unable to manage here. She is agreeable to this plan. Subjective/Events-last exam Pt reports feeling better today though still having throbbing pain in her hand. Less redness and swelling in arm though. Dressing not changed yet though. Dr Linares came in during the visit to change though. Objective Exam Vital Signs Vital Signs Date Time Temp Pulse Resp B/P (MAP) Pulse Ox O2 Delivery O2 Flow Rate FiO2 09/25/22 11:42 36.9 74 16 121/72 (88) 92 Room Air 09/25/22 07:10 0.00 Capillary Refill : Less Than 3 SecondsLess Than 3 Seconds General Appearance: No Apparent Distress, WD/WN, Anxious Respiratory: Lungs Clear, No Respiratory Distress Cardiovascular: Regular Rate, Rhythm, No Murmur Gastrointestinal: Normal Bowel Sounds, Soft Extremity: Other (edema and erythema that were tracking up are much improved and barely noticeable at this point, dressing still in place on hand and about to be changed by Dr Linares so Id id not undress) Neurologic/Psychiatric: Alert, Oriented x3 Results/Procedures Lab Laboratory Tests 09/25/22 04:58 Patient resulted labs reviewed. Imaging: Reviewed Imaging Report Assessment/Plan Assessment and Plan Assess & Plan/Chief Complaint Sepsis due to cellulitis and tenosynovitis of right index finger POD #2 NPO after midnight in case she needs another surgery in the AM Continue IV abx Blood cx with NGTD Operative wound culture with strep pyogenes Orthopedic Surgery consulted, appreciate recs- dressing changes per Dr Linares Fentanyl for pain Continue home oral pain meds as well Transaminitis trending down again today ADD Anxiety Chronic pain Continue home meds as able DVT ppx: Lovenox Diagnosis/Problems Diagnosis/Problems (1) Sepsis Status: Acute (2) Cellulitis of right index finger Status: Acute AIYANA HARDING MD September 25, 2022 12:48
[2022-09-25] MEDS: ENOXAPARIN 40 MG/0.4 ML (LOVENOX) SYR SQ SCH (14:33)
[2022-09-25 16:00] VITALS: BP 106/64
[2022-09-25 20:00] VITALS: BP 111/77
[2022-09-25] MEDS: AMITRIPTYLINE 150 MG (ELAVIL) TABLET PO SCH (20:05)
[2022-09-25 23:55] VITALS: BP 118/87
[2022-09-26] MEDS: fentaNYL INJ 100 MCG/2 ML AMP IVP PRN ×8 (01:00→22:29)
[2022-09-26] MEDS: PIPERACILLIN SODIUM/TAZOBACTAM 4.5 GM in NS (IVPB) 100 ML IV SCH (03:38)
[2022-09-26 04:00] VITALS: BP 117/63
[2022-09-26 04:34] LABS: BASOPHILS # (AUTO) 0.1 10^3/uL (0.0-0.1); BASOPHILS % (AUTO) 1 % (0-10); EOSINOPHILS # (AUTO) 0.5 10^3/uL (0.0-0.3); EOSINOPHILS % (AUTO) 5 % (0-10); HEMATOCRIT 30 % (35-52); HEMOGLOBIN 9.7 g/dL (11.5-16.0); LYMPHOCYTES % (AUTO) 30 % (12-44); MEAN CORPUSCULAR HEMOGLOBIN 30 pg (25-34); MEAN CORPUSCULAR HGB CONC 32 g/dL (32-36); MEAN CORPUSCULAR VOLUME 91 fL (80-99); MONOCYTES # (AUTO) 0.9 10^3/uL (0.0-1.0); MONOCYTES % (AUTO) 9 % (0-12); NEUTROPHILS # (AUTO) 5.7 10^3/uL (1.8-7.8); NEUTROPHILS % (AUTO) 55 % (42-75); PLATELET COUNT 366 10^3/uL (130-400); WHITE BLOOD COUNT 10.2 10^3/uL (4.3-11.0)
[2022-09-26 04:55] LABS: ALBUMIN 3.2 GM/DL (3.2-4.5); BILIRUBIN,TOTAL 0.2 MG/DL (0.1-1.0); CALCIUM 8.8 MG/DL (8.5-10.1); CREATININE SERUM 1.25 MG/DL (0.60-1.30); POTASSIUM 4.3 MMOL/L (3.6-5.0); TOTAL PROTEIN 5.8 GM/DL (6.4-8.2)
[2022-09-26] MEDS: KETOROLAC 30 MG/ML VIAL IVP SCH ×3 (05:43→18:07)
[2022-09-26] MEDS: VASOPRESSIN INJECTION 20 UNIT in NS (IVPB) 100 ML IV SCH ×2 (05:46→15:40)
[2022-09-26] MEDS: FUROSEMIDE 40 MG (LASIX) TAB PO SCH ×2 (06:29→15:45)
[2022-09-26 08:00] VITALS: BP 111/71
[2022-09-26] MEDS: PANTOPRAZOLE 40 MG (PROTONIX) TAB PO SCH (08:00)
[2022-09-26] MEDS: MAGNESIUM OXIDE (MAG-OX)400 MG TAB PO SCH (08:01)
[2022-09-26] MEDS: oxyCODONE/APAP 10/325MG (PERCOCET 10) TABLET PO SCH ×3 (08:01→20:33)
[2022-09-26] MEDS: ESCITALOPRAM 10 MG TAB PO SCH (08:08)
[2022-09-26] MEDS: ESCITALOPRAM 20 MG TAB PO SCH (08:10)
--- NOTE | 2022-09-26 08:55 | Progress Note - Ortho ---
Progress Note Subjective Date of Exam 09/26/22 Chief Complaint POD #3 I&D of R IF HPI/Events since last exam concerned about pain and swelling, states "it's worse" Review of Systems - Allergies: Coded Allergies: Melissa Known Allergies (Verified Allergy, Unknown, 09/14/05) Home Meds Reported Medications Magnesium Oxide (Magnesium) 400 Mg Magnesium Tablet, 800 MG PO DAILY, TAB TAKES 2 (400MG) TABS 09/22/22 Vit W-Ca,Fe,FA(<1 mg) ( Vitamins) 27 Mg Iron-800 Mcg Tablet, 1 EACH PO DAILY, TAB 09/22/22 Meloxicam (Meloxicam) 15 Mg Tablet, 15 MG PO DAILY FILLED 07-16-2022 # DAY SUPPLY 09/22/22 Metoprolol Succinate (Metoprolol Succinate) 25 Mg Tab.er.24h, 25 MG PO DAILY 09/22/22 Alprazolam (Alprazolam) 0.5 Mg Tablet, 0.5 MG PO QID PRN for ANXIETY 09/22/22 Escitalopram Oxalate (Escitalopram Oxalate) 10 Mg Tablet, 10 MG PO DAILY TAKES ALONG with 20MG TO EQUAL 30MG FILLED 07-16-2022 # DAY SUPPLY 09/22/22 Oxycodone HCl/Acetaminophen (Oxycodone-Acetaminophen 10-325) 10 Mg-325 Mg Tablet, 1 EACH PO TID 09/21/22 Escitalopram Oxalate (Escitalopram Oxalate) 20 Mg Tablet, 20 MG PO DAILY TAKES ALONG WITH 10MG TO EQUAL 30MG 09/21/22 Amitriptyline HCl (Amitriptyline HCl) 150 Mg Tablet, 150 MG PO HS 09/21/22 Pantoprazole Sodium (Pantoprazole Sodium) 40 Mg Tablet.dr, 40 MG PO DAILY 09/21/22 Furosemide (Furosemide) 40 Mg Tablet, 40 MG PO BID 09/21/22 Potassium Chloride (Potassium Chloride) 10 Meq Capsule.er, 10 MEQ PO DAILY PRN for FLUID RETENTION 09/21/22 Dextroamphetamine/Amphetamine (Amphetamine Salts 20 mg Tablet) 20 Mg Tablet, 10 MG PO BID TAKES 1/2 OF (20MG) TAB 09/21/22 Objective Exam Right Index Finger: Swelling similar to yesterday, finger remains soft compressible, diffusely tender, tolerates some flexion and extension, no purulent material on bandage Vital Signs Vital Signs Date Time Temp Pulse Resp B/P (MAP) Pulse Ox O2 Delivery O2 Flow Rate FiO2 09/26/22 08:00 36.2 74 19 111/71 (84) 97 Room Air 09/26/22 04:00 73 23 117/63 (81) Room Air 09/26/22 01:00 71 09/25/22 23:55 36.7 92 22 118/87 (97) 94 Room Air 09/25/22 20:00 36.1 91 18 111/77 (88) 97 Room Air 09/25/22 20:00 Room Air 09/25/22 19:00 102 09/25/22 16:00 36.8 89 21 106/64 (78) 95 Nasal Cannula 09/25/22 12:53 78 09/25/22 11:42 36.9 74 16 121/72 (88) 92 Room Air 09/25/22 10:40 Room Air I & O 09/26/22 07:00 Intake Total 2450 ml Output Total 4100 ml Balance -1650 ml Lab Results Laboratory Tests 09/26/22 03:40: White Blood Count 10.2, Red Blood Count 3.29L, Hemoglobin 9.7L, Hematocrit 30L, Mean Corpuscular Volume 91, Mean Corpuscular Hemoglobin 30, Mean Corpuscular Hemoglobin Concent 32, Red Cell Distribution Width 13.3, Platelet Count 366, Mean Platelet Volume 9.0, Immature Granulocyte % (Auto) 1, Neutrophils (%) (Auto) 55, Lymphocytes (%) (Auto) 30, Monocytes (%) (Auto) 9, Eosinophils (%) (Auto) 5, Basophils (%) (Auto) 1, Neutrophils # (Auto) 5.7, Lymphocytes # (Auto) 3.0, Monocytes # (Auto) 0.9, Eosinophils # (Auto) 0.5H, Basophils # (Auto) 0.1, Immature Granulocyte # (Auto) 0.1, Sodium Level 142, Potassium Level 4.3, Chloride Level 103, Carbon Dioxide Level 29, Anion Gap 10, Blood Urea Nitrogen 13, Creatinine 1.25, Estimat Glomerular Filtration Rate 51, BUN/Creatinine Ratio 10, Glucose Level 83, Calcium Level 8.8, Corrected Calcium 9.4, Total Bilirubin 0.2, Aspartate Amino Transf (AST/SGOT) 50H, Alanine Aminotransferase (ALT/SGPT) 63H, Alkaline Phosphatase 119, Total Protein 5.8L, Albumin 3.2 Microbiology 09/23/22 Gram Stain - Final, Resulted 09/23/22 Anaerobic Culture - Preliminary, Resulted No anaerobes isolated 09/23/22 Surgical Culture - Final, Resulted Streptococcus pyogenes Grp A See Comments 09/22/22 Urine Culture - Final, Complete NO GROWTH 09/21/22 Blood Culture - Preliminary, Resulted No growth Assessment and Plan Assessment Right Index Finger Tenosynovitis s/p I&D Problem List Right Index Finger Tenosynovitis s/p I&D Plan Continue dressing change IV abx Mobilize joints as able Final Diagonsis Right Index Finger Tenosynovitis s/p I&D Level of the visit: Level 3 (global) MICHELLE CHAVEZ MD September 26, 2022 08:55
--- NOTE | 2022-09-26 11:01 | Progress Note - Hospitalist ---
Subjective HPI/CC On Admission Date Seen by Provider: September 26, 2022 Pt is a 57yoCF who presented to the Er due to finger paina nd swelling. She reported to the ER that she got scratched by a cat but to me she states it started after cleaning her fridge out and spraying ant killer. She was concerned she got the chemicals in a scratch and it caused this. She went to work and her symptoms continued to worsen. She actually went to the urgent care at her work and was given oral antibiotics. She states she requested IM/IV abx but was told they were on back order and she could only get oral. She took her first dose but when she got home her swelling was so bad her had to cut a ring off her finger. She was found to have a leukocytosis and was febrile on arrival. She had to have another ring cut off of her finger in the ER as well. This morning she reports she is still having pain and that the dilaudid is not helping. She is requesting fentanyl instead as that has historically worked for her. She denies feeling any better. We discussed need for surgical evaluation and even potential transfer if surgeon felt unable to manage here. She is agreeable to this plan. Subjective/Events-last exam Pt reports feeling about the same. She's still having throbbing pain in finger but edema about the same. Dressing about to be packed again. Dr Linares just examined it as well. She complains to me of some vulvar edema that occurred overnight but is now resolved. She at first thought it was due to generalized edema from fluids but now resolved. She states she has been having some vaginal discharge as well but that predates this admission. 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 She also thinks she has vaginal atrophy but does not want to use vaginal estrogen due to her sister's history of hormone positive cancer. Objective Exam Vital Signs Vital Signs Date Time Temp Pulse Resp B/P (MAP) Pulse Ox O2 Delivery O2 Flow Rate FiO2 09/26/22 08:00 36.2 74 19 111/71 (84) 97 Room Air 09/25/22 07:10 0.00 Capillary Refill : Less Than 3 SecondsLess Than 3 Seconds General Appearance: No Apparent Distress Respiratory: Lungs Clear, No Respiratory Distress Cardiovascular: Regular Rate, Rhythm, No Murmur Genital/Rectal: Other (did not perform pelvic exam as no speculum available and patient states she will follow with her joint finisher but external exam appears to have normal vulva with no erythema or edema noted) Extremity: Other (right index finger with persistent edema and erythema- no drainage from surgical incisions) Neurologic/Psychiatric: Alert, Oriented x3 Results/Procedures Lab Laboratory Tests 09/26/22 03:40 Patient resulted labs reviewed. Imaging: Reviewed Imaging Report Assessment/Plan Assessment and Plan Assess & Plan/Chief Complaint Sepsis due to cellulitis and tenosynovitis of right index finger POD #3 Continue IV abx at least 2-3 more days Blood cx with NGTD Operative wound culture with strep pyogenes Orthopedic Surgery consulted, appreciate recs- dressing changes per Dr Linares Fentanyl for pain Continue home oral pain meds as well Vulvar edema now resolved, normal appearing exam Recommended outpatient follow up with her joint finisher Transaminitis stable ADD Anxiety Chronic pain Continue home meds as able DVT ppx: Lovenox Diagnosis/Problems Diagnosis/Problems (1) Sepsis Status: Acute (2) Cellulitis of right index finger Status: Acute AIYAAN HARDING MD September 26, 2022 11:01
[2022-09-26 12:00] VITALS: BP 104/65
[2022-09-26] MEDS: AMPICILLIN 1,000 MG/NS 50 ML IVPB IV SCH ×4 (13:05→18:06)
[2022-09-26] MEDS: NOREPINEPHRINE 8 MG/250 ML 250 ML IV SCH (14:20)
[2022-09-26 15:38] VITALS: BP 109/73
[2022-09-26] MEDS: ENOXAPARIN 40 MG/0.4 ML (LOVENOX) SYR SQ SCH (15:45)
[2022-09-26 19:45] VITALS: BP 101/85
[2022-09-26] MEDS: AMITRIPTYLINE 150 MG (ELAVIL) TABLET PO SCH (20:33)
[2022-09-26] MEDS: ALPRAZolam 0.5 MG (XANAX) TAB PO PRN (22:28)
[2022-09-27] VITALS: BP 102/58
[2022-09-27] MEDS: KETOROLAC 30 MG/ML VIAL IVP SCH (00:03)
[2022-09-27] MEDS: AMPICILLIN 1,000 MG/NS 50 ML IVPB IV SCH ×8 (00:04→17:02)
[2022-09-27] MEDS: VASOPRESSIN INJECTION 20 UNIT in NS (IVPB) 100 ML IV SCH ×2 (03:32→16:11)
[2022-09-27 04:00] VITALS: BP 114/76
[2022-09-27 04:43] LABS: BASOPHILS # (AUTO) 0.1 10^3/uL (0.0-0.1); BASOPHILS % (AUTO) 0 % (0-10); EOSINOPHILS # (AUTO) 0.5 10^3/uL (0.0-0.3); EOSINOPHILS % (AUTO) 5 % (0-10); HEMATOCRIT 32 % (35-52); HEMOGLOBIN 10.9 g/dL (11.5-16.0); LYMPHOCYTES # (AUTO) 3.4 10^3/uL (1.0-4.0); LYMPHOCYTES % (AUTO) 30 % (12-44); MEAN CORPUSCULAR HEMOGLOBIN 30 pg (25-34); MEAN CORPUSCULAR HGB CONC 34 g/dL (32-36); MEAN CORPUSCULAR VOLUME 89 fL (80-99); MEAN PLATELET VOLUME 8.8 fL (9.0-12.2); MONOCYTES # (AUTO) 0.8 10^3/uL (0.0-1.0); MONOCYTES % (AUTO) 8 % (0-12); NEUTROPHILS # (AUTO) 6.3 10^3/uL (1.8-7.8); NEUTROPHILS % (AUTO) 56 % (42-75); PLATELET COUNT 366 10^3/uL (130-400); WHITE BLOOD COUNT 11.1 10^3/uL (4.3-11.0)
[2022-09-27 04:50] LABS: ALBUMIN 3.2 GM/DL (3.2-4.5); POTASSIUM 4.6 MMOL/L (3.6-5.0)
[2022-09-27 04:51] LABS: CALCIUM 9.4 MG/DL (8.5-10.1)
[2022-09-27 04:52] LABS: TOTAL PROTEIN 6.1 GM/DL (6.4-8.2)
[2022-09-27 04:54] LABS: BILIRUBIN,TOTAL 0.3 MG/DL (0.1-1.0)
[2022-09-27 04:56] LABS: CREATININE SERUM 1.08 MG/DL (0.60-1.30)
[2022-09-27] MEDS: fentaNYL INJ 100 MCG/2 ML AMP IVP PRN ×6 (05:22→21:09)
[2022-09-27] MEDS: FUROSEMIDE 40 MG (LASIX) TAB PO SCH ×2 (06:02→17:01)
--- NOTE | 2022-09-27 07:15 | Progress Note - Ortho ---
Progress Note Subjective Date of Exam 09/27/22 Chief Complaint s/p I&D of R IF Flexor Tendon Sheath HPI/Events since last exam continued pain, states discoloration has continued Review of Systems - Allergies: Coded Allergies: TUANo Known Allergies (Verified Allergy, Unknown, 09/14/05) Home Meds Reported Medications Magnesium Oxide (Magnesium) 400 Mg Magnesium Tablet, 800 MG PO DAILY, TAB TAKES 2 (400MG) TABS 09/22/22 Vit W-Ca,Fe,FA(<1 mg) ( Vitamins) 27 Mg Iron-800 Mcg Tablet, 1 EACH PO DAILY, TAB 09/22/22 Meloxicam (Meloxicam) 15 Mg Tablet, 15 MG PO DAILY FILLED 07-16-2022 # DAY SUPPLY 09/22/22 Metoprolol Succinate (Metoprolol Succinate) 25 Mg Tab.er.24h, 25 MG PO DAILY 09/22/22 Alprazolam (Alprazolam) 0.5 Mg Tablet, 0.5 MG PO QID PRN for ANXIETY 09/22/22 Escitalopram Oxalate (Escitalopram Oxalate) 10 Mg Tablet, 10 MG PO DAILY TAKES ALONG with 20MG TO EQUAL 30MG FILLED 07-16-2022 # DAY SUPPLY 09/22/22 Oxycodone HCl/Acetaminophen (Oxycodone-Acetaminophen 10-325) 10 Mg-325 Mg Tablet, 1 EACH PO TID 09/21/22 Escitalopram Oxalate (Escitalopram Oxalate) 20 Mg Tablet, 20 MG PO DAILY TAKES ALONG WITH 10MG TO EQUAL 30MG 09/21/22 Amitriptyline HCl (Amitriptyline HCl) 150 Mg Tablet, 150 MG PO HS 09/21/22 Pantoprazole Sodium (Pantoprazole Sodium) 40 Mg Tablet.dr, 40 MG PO DAILY 09/21/22 Furosemide (Furosemide) 40 Mg Tablet, 40 MG PO BID 09/21/22 Potassium Chloride (Potassium Chloride) 10 Meq Capsule.er, 10 MEQ PO DAILY PRN for FLUID RETENTION 09/21/22 Dextroamphetamine/Amphetamine (Amphetamine Salts 20 mg Tablet) 20 Mg Tablet, 10 MG PO BID TAKES 1/2 OF (20MG) TAB 09/21/22 Objective Exam R IF: similar swelling, no purulent material, tender diffusely Vital Signs Vital Signs Date Time Temp Pulse Resp B/P (MAP) Pulse Ox O2 Delivery O2 Flow Rate FiO2 09/27/22 04:00 68 15 114/76 (89) Room Air 09/27/22 04:00 36.1 09/27/22 01:00 71 09/27/22 00:00 36.6 64 22 102/58 (73) 95 Room Air 09/26/22 20:00 Room Air 09/26/22 19:45 36.0 71 11 101/85 (90) 95 Room Air 09/26/22 19:00 70 09/26/22 15:38 35.0 65 12 109/73 (85) 94 09/26/22 13:00 62 09/26/22 12:00 36.7 71 14 104/65 (78) 97 Room Air 09/26/22 08:00 97 Room Air 0.00 09/26/22 08:00 36.2 74 19 111/71 (84) 97 Room Air I & O 09/27/22 07:00 Intake Total 1940 ml Output Total 2500 ml Balance -560 ml Lab Results Laboratory Tests 09/27/22 04:34: White Blood Count 11.1H, Red Blood Count 3.65L, Hemoglobin 10.9L, Hematocrit 32L , Mean Corpuscular Volume 89, Mean Corpuscular Hemoglobin 30, Mean Corpuscular Hemoglobin Concent 34, Red Cell Distribution Width 13.0, Platelet Count 366, Mean Platelet Volume 8.8L, Immature Granulocyte % (Auto) 1, Neutrophils (%) (Auto) 56, Lymphocytes (%) (Auto) 30, Monocytes (%) (Auto) 8, Eosinophils (%) (Auto) 5, Basophils (%) (Auto) 0, Neutrophils # (Auto) 6.3, Lymphocytes # (Auto) 3.4, Monocytes # (Auto) 0.8, Eosinophils # (Auto) 0.5H, Basophils # (Auto) 0.1, Immature Granulocyte # (Auto) 0.1, Percent Immature Platelet Fraction 1.6, Sodium Level 140, Potassium Level 4.6, Chloride Level 101, Carbon Dioxide Level 26, Anion Gap 13, Blood Urea Nitrogen 11, Creatinine 1.08, Estimat Glomerular Filtration Rate 61, BUN/Creatinine Ratio 10, Glucose Level 86, Calcium Level 9.4, Corrected Calcium 10.0, Total Bilirubin 0.3, Aspartate Amino Transf (AST/SGOT) 50H, Alanine Aminotransferase (ALT/SGPT) 61H, Alkaline Phosphatase 13 6, Total Protein 6.1L, Albumin 3.2 Microbiology 09/23/22 Gram Stain - Final, Resulted 09/23/22 Anaerobic Culture - Preliminary, Resulted No anaerobes isolated 09/23/22 Surgical Culture - Final, Resulted Streptococcus pyogenes Grp A See Comments 09/22/22 Urine Culture - Final, Complete NO GROWTH 09/21/22 Blood Culture - Preliminary, Resulted No growth Assessment and Plan Assessment R IF Flexor Tenosynovitis s/p I&D Problem List R IF Flexor Tenosynovitis s/p I&D Plan Continue IV antibiotics Convert dressing to W-->D with sodium hypochlorite Final Diagonsis R IF Flexor Tenosynovitis s/p I&D Level of the visit: Level 3 (global postop) MICHELLE CHAVEZ MD September 27, 2022 07:15
[2022-09-27 07:49] VITALS: BP 116/93
[2022-09-27] MEDS: NOREPINEPHRINE 8 MG/250 ML 250 ML IV SCH (08:16)
[2022-09-27] MEDS: MAGNESIUM OXIDE (MAG-OX)400 MG TAB PO SCH (08:28)
[2022-09-27] MEDS: oxyCODONE/APAP 10/325MG (PERCOCET 10) TABLET PO SCH ×4 (08:28→21:08)
[2022-09-27] MEDS: HYPOCHLOROUS ACID/NaCl (VASHE) 250 ML IR SCH ×2 (08:28→21:09)
[2022-09-27] MEDS: ESCITALOPRAM 20 MG TAB PO SCH (08:31)
[2022-09-27] MEDS: ESCITALOPRAM 10 MG TAB PO SCH (08:31)
[2022-09-27] MEDS: PANTOPRAZOLE 40 MG (PROTONIX) TAB PO SCH (08:31)
--- NOTE | 2022-09-27 09:08 | Progress Note - Hospitalist ---
Subjective HPI/CC On Admission Date Seen by Provider: September 27, 2022 Pt is a 57yoCF who presented to the Er due to finger paina nd swelling. She reported to the ER that she got scratched by a cat but to me she states it started after cleaning her fridge out and spraying ant killer. She was concerned she got the chemicals in a scratch and it caused this. She went to work and her symptoms continued to worsen. She actually went to the urgent care at her work and was given oral antibiotics. She states she requested IM/IV abx but was told they were on back order and she could only get oral. She took her first dose but when she got home her swelling was so bad her had to cut a ring off her finger. She was found to have a leukocytosis and was febrile on arrival. She had to have another ring cut off of her finger in the ER as well. This morning she reports she is still having pain and that the dilaudid is not helping. She is requesting fentanyl instead as that has historically worked for her. She denies feeling any better. We discussed need for surgical evaluation and even potential transfer if surgeon felt unable to manage here. She is agreeable to this plan. Subjective/Events-last exam Pt reports still having throbbing pain,. States Dr Linares was in this morning and told her it was looking better. Undress but no new packing yet. at bedside and express concern for persistent edema and pain. States he was hoping it would look better by now. She reports her edema is better but can still feel it in her thighs some. Does not complain of any more vulvar edema. Objective Exam Vital Signs Vital Signs Date Time Temp Pulse Resp B/P (MAP) Pulse Ox O2 Delivery O2 Flow Rate FiO2 09/27/22 07:49 36.8 80 10 116/93 (101) 09/27/22 04:00 Room Air 09/27/22 00:00 95 09/26/22 08:00 0.00 Capillary Refill : Less Than 3 SecondsLess Than 3 Seconds General Appearance: No Apparent Distress, WD/WN Respiratory: Lungs Clear, No Respiratory Distress Cardiovascular: Regular Rate, Rhythm, No Murmur Gastrointestinal: Normal Bowel Sounds, Soft Extremity: Other (persistent erythema and edema of right index finger, surgical incisions without drainage, sensation intact and quite tender to any pressure but no further tracking or warmth up arm like earlier in the week) Results/Procedures Lab Laboratory Tests 09/27/22 04:34 Patient resulted labs reviewed. 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
[2022-09-27] MEDS: fentaNYL PATCH 50 MCG (DURAGESIC) TD SCH (10:17)
[2022-09-27 11:37] VITALS: BP 128/81
[2022-09-27] MEDS: MELOXICAM 7.5 MG (MOBIC) TABLET PO SCH (11:52)
[2022-09-27 15:31] VITALS: BP 118/83
[2022-09-27] MEDS: ENOXAPARIN 40 MG/0.4 ML (LOVENOX) SYR SQ SCH (15:34)
[2022-09-27 20:00] VITALS: BP 102/68
[2022-09-27] MEDS: AMITRIPTYLINE 150 MG (ELAVIL) TABLET PO SCH (21:10)
[2022-09-28] VITALS (7 sets, daily range): BP systolic 93–116; BP diastolic 55–85
[2022-09-28] MEDS: AMPICILLIN 1,000 MG/NS 50 ML IVPB IV SCH ×4 (00:07→06:33)
[2022-09-28] MEDS: VASOPRESSIN INJECTION 20 UNIT in NS (IVPB) 100 ML IV SCH ×2 (01:46→11:54)
[2022-09-28] MEDS: NOREPINEPHRINE 8 MG/250 ML 250 ML IV SCH ×2 (02:35→19:41)
[2022-09-28 04:26] LABS: BASOPHILS # (AUTO) 0.1 10^3/uL (0.0-0.1); BASOPHILS % (AUTO) 1 % (0-10); EOSINOPHILS # (AUTO) 0.6 10^3/uL (0.0-0.3); EOSINOPHILS % (AUTO) 6 % (0-10); HEMATOCRIT 31 % (35-52); HEMOGLOBIN 10.2 g/dL (11.5-16.0); LYMPHOCYTES # (AUTO) 3.3 10^3/uL (1.0-4.0); LYMPHOCYTES % (AUTO) 32 % (12-44); MEAN CORPUSCULAR HEMOGLOBIN 30 pg (25-34); MEAN CORPUSCULAR HGB CONC 33 g/dL (32-36); MEAN CORPUSCULAR VOLUME 89 fL (80-99); MEAN PLATELET VOLUME 8.6 fL (9.0-12.2); MONOCYTES # (AUTO) 0.8 10^3/uL (0.0-1.0); MONOCYTES % (AUTO) 8 % (0-12); NEUTROPHILS # (AUTO) 5.4 10^3/uL (1.8-7.8); NEUTROPHILS % (AUTO) 52 % (42-75); PLATELET COUNT 451 10^3/uL (130-400); WHITE BLOOD COUNT 10.5 10^3/uL (4.3-11.0)
[2022-09-28] MEDS: fentaNYL INJ 100 MCG/2 ML AMP IVP PRN ×6 (04:38→21:34)
[2022-09-28 04:40] LABS: ALBUMIN 3.2 GM/DL (3.2-4.5)
[2022-09-28 04:41] LABS: POTASSIUM 4.4 MMOL/L (3.6-5.0)
[2022-09-28 04:42] LABS: CALCIUM 9.2 MG/DL (8.5-10.1)
[2022-09-28 04:43] LABS: TOTAL PROTEIN 6.3 GM/DL (6.4-8.2)
[2022-09-28 04:45] LABS: BILIRUBIN,TOTAL 0.2 MG/DL (0.1-1.0)
[2022-09-28 04:47] LABS: CREATININE SERUM 1.11 MG/DL (0.60-1.30)
[2022-09-28] MEDS: FUROSEMIDE 40 MG (LASIX) TAB PO SCH ×2 (06:33→17:04)
[2022-09-28] MEDS: MELOXICAM 7.5 MG (MOBIC) TABLET PO SCH (08:14)
[2022-09-28] MEDS: MAGNESIUM OXIDE (MAG-OX)400 MG TAB PO SCH (08:14)
[2022-09-28] MEDS: PANTOPRAZOLE 40 MG (PROTONIX) TAB PO SCH (08:14)
[2022-09-28] MEDS: ESCITALOPRAM 10 MG TAB PO SCH (08:16)
[2022-09-28] MEDS: oxyCODONE/APAP 10/325MG (PERCOCET 10) TABLET PO SCH ×3 (08:16→21:33)
[2022-09-28] MEDS: ESCITALOPRAM 20 MG TAB PO SCH (08:16)
[2022-09-28] MEDS ORDERED: VANCOMYCIN INJECTION 0.1 MG in NS (IVPB) 250 ML IV SCH (09:30)
[2022-09-28] MEDS: HYPOCHLOROUS ACID/NaCl (VASHE) 250 ML IR SCH ×2 (09:54→21:35)
[2022-09-28] MEDS ORDERED: VANCOMYCIN 1 GM/NS 250 ML IVPB IV NR ×2 (10:30)
--- NOTE | 2022-09-28 10:34 | Progress Note - Hospitalist ---
Subjective HPI/CC On Admission Date Seen by Provider: September 28, 2022 Pt is a 57yoCF who presented to the Er due to finger paina nd swelling. She reported to the ER that she got scratched by a cat but to me she states it started after cleaning her fridge out and spraying ant killer. She was concerned she got the chemicals in a scratch and it caused this. She went to work and her symptoms continued to worsen. She actually went to the urgent care at her work and was given oral antibiotics. She states she requested IM/IV abx but was told they were on back order and she could only get oral. She took her first dose but when she got home her swelling was so bad her had to cut a ring off her finger. She was found to have a leukocytosis and was febrile on arrival. She had to have another ring cut off of her finger in the ER as well. This morning she reports she is still having pain and that the dilaudid is not helping. She is requesting fentanyl instead as that has historically worked for her. She denies feeling any better. We discussed need for surgical evaluation and even potential transfer if surgeon felt unable to manage here. She is agreeable to this plan. Subjective/Events-last exam Pt reports pain is worse today. Thinks swelling and blister are worse as well. Labs stable and afebrile this morning but patient does seem to be in more pain this morning than previously. 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 Informed patient she is within her rights to seek evaluation elsewhere if she feels it is warranted. Told her I would speak to Dr Linares. After speaking with Dr Linares informed her of plan for him to review images of finger and decide on plan. Objective Exam Vital Signs Vital Signs Date Time Temp Pulse Resp B/P (MAP) Pulse Ox O2 Delivery O2 Flow Rate FiO2 09/28/22 07:40 36.8 71 13 111/85 (94) 98 09/28/22 04:00 Room Air 09/26/22 08:00 0.00 Capillary Refill : Less Than 3 SecondsLess Than 3 Seconds General Appearance: Other (tearful) Respiratory: Lungs Clear, No Respiratory Distress Cardiovascular: Regular Rate, Rhythm, No Murmur Gastrointestinal: Normal Bowel Sounds, Soft Neurologic/Psychiatric: Alert, Oriented x3 Results/Procedures Lab Laboratory Tests 09/28/22 04:16 Patient resulted labs reviewed. Imaging: Reviewed Imaging Report Assessment/Plan Assessment and Plan Assess & Plan/Chief Complaint Sepsis due to cellulitis and tenosynovitis of right index finger POD #5 Continue IV abx but given worsening symptoms with go back to Vanc and Zosyn for at least today Dr Linares reviewed images of wound and wants her NPO for possible washout tonight- per RN patient is satisfied with this plan Operative wound culture with strep pyogenes Orthopedic Surgery consulted, appreciate recs- dressing changes per Dr Linares Fentanyl for pain- continue fentanyl patch though she reports it is not helping at all right now- will try to give it at least 24 hours though Continue home oral pain meds as well Vulvar edema- resolved now resolved, normal appearing exam Recommended outpatient follow up with her community health agent Transaminitis resolved ADD Anxiety Chronic pain Continue home meds as able DVT ppx: Lovenox Diagnosis/Problems Diagnosis/Problems (1) Sepsis Status: Acute (2) Cellulitis of right index finger Status: Acute AIYANA HARDING MD September 28, 2022 10:34 am
[2022-09-28] MEDS: LACTOBACILLUS ACIDOPHILUS (PROBIOTIC) CAPSULE PO SCH ×2 (12:45→17:04)
[2022-09-28] MEDS: ENOXAPARIN 40 MG/0.4 ML (LOVENOX) SYR SQ SCH (15:11)
[2022-09-28] MEDS: VANCOMYCIN 750 MG/NS 250 ML IVPB IV SCH ×2 (21:34)
[2022-09-28] MEDS: AMITRIPTYLINE 150 MG (ELAVIL) TABLET PO SCH (21:34)
[2022-09-28] MEDS: ALPRAZolam 0.5 MG (XANAX) TAB PO PRN (22:56)
[2022-09-29] VITALS (12 sets, daily range): BP systolic 86–120; BP diastolic 57–73
[2022-09-29] MEDS: VASOPRESSIN INJECTION 20 UNIT in NS (IVPB) 100 ML IV SCH (00:16)
[2022-09-29 03:58] LABS: BASOPHILS # (AUTO) 0.1 10^3/uL (0.0-0.1); BASOPHILS % (AUTO) 1 % (0-10); EOSINOPHILS # (AUTO) 0.6 10^3/uL (0.0-0.3); EOSINOPHILS % (AUTO) 6 % (0-10); HEMATOCRIT 31 % (35-52); LYMPHOCYTES # (AUTO) 2.7 10^3/uL (1.0-4.0); LYMPHOCYTES % (AUTO) 29 % (12-44); MEAN CORPUSCULAR HEMOGLOBIN 29 pg (25-34); MEAN CORPUSCULAR HGB CONC 32 g/dL (32-36); MEAN CORPUSCULAR VOLUME 90 fL (80-99); MEAN PLATELET VOLUME 8.7 fL (9.0-12.2); MONOCYTES # (AUTO) 0.8 10^3/uL (0.0-1.0); MONOCYTES % (AUTO) 9 % (0-12); NEUTROPHILS # (AUTO) 4.9 10^3/uL (1.8-7.8); NEUTROPHILS % (AUTO) 52 % (42-75); PLATELET COUNT 439 10^3/uL (130-400); WHITE BLOOD COUNT 9.4 10^3/uL (4.3-11.0)
[2022-09-29] MEDS: fentaNYL INJ 100 MCG/2 ML AMP IVP PRN ×3 (04:07→14:06)
[2022-09-29] MEDS: oxyCODONE/APAP 10/325MG (PERCOCET 10) TABLET PO PRN (04:07)
[2022-09-29 04:22] LABS: ALBUMIN 3.2 GM/DL (3.2-4.5); BILIRUBIN,TOTAL 0.2 MG/DL (0.1-1.0); CALCIUM 9.1 MG/DL (8.5-10.1); CREATININE SERUM 1.18 MG/DL (0.60-1.30); POTASSIUM 4.3 MMOL/L (3.6-5.0); TOTAL PROTEIN 6.3 GM/DL (6.4-8.2)
[2022-09-29] MEDS: ESCITALOPRAM 20 MG TAB PO SCH (08:00)
[2022-09-29] MEDS: ESCITALOPRAM 10 MG TAB PO SCH (08:00)
[2022-09-29] MEDS: LACTOBACILLUS ACIDOPHILUS (PROBIOTIC) CAPSULE PO SCH ×3 (08:01→16:41)
[2022-09-29] MEDS: FUROSEMIDE 40 MG (LASIX) TAB PO SCH ×2 (08:01→16:41)
[2022-09-29] MEDS: MAGNESIUM OXIDE (MAG-OX)400 MG TAB PO SCH (08:02)
[2022-09-29] MEDS: HYPOCHLOROUS ACID/NaCl (VASHE) 250 ML IR SCH ×2 (08:02→20:51)
[2022-09-29] MEDS: MELOXICAM 7.5 MG (MOBIC) TABLET PO SCH (08:02)
[2022-09-29] MEDS: PANTOPRAZOLE 40 MG (PROTONIX) TAB PO SCH (08:02)
[2022-09-29] MEDS: oxyCODONE/APAP 10/325MG (PERCOCET 10) TABLET PO SCH ×3 (08:02→20:51)
[2022-09-29] MEDS ORDERED: TROUGH ORDER-PHARMACY XX ONE (09:30)
[2022-09-29] MEDS ORDERED: MIDAZOLAM 2 MG/2 ML (VERSED) VIAL ONE (11:08)
[2022-09-29] MEDS ORDERED: fentaNYL INJ 100 MCG/2 ML AMP ONE (11:08)
[2022-09-29] MEDS ORDERED: LIDOCAINE PF 2% 5 ML (XYLOCAINE) VIAL ONE (11:18)
[2022-09-29] MEDS ORDERED: proPOfol 200 MG/20 ML (DIPRIVAN) VIAL IV ONE (11:18)
--- NOTE | 2022-09-29 11:28 | Progress Note - Ortho ---
Progress Note Subjective Date of Exam 09/29/22 Chief Complaint R IF Tenosynovitis HPI/Events since last exam similar concern, states no better, has been on IV antibiotics Review of Systems - Allergies: Coded Allergies: NKANo Known Allergies (Verified Allergy, Unknown, 09/14/05) Home Meds Reported Medications Magnesium Oxide (Magnesium) 400 Mg Magnesium Tablet, 800 MG PO DAILY, TAB TAKES 2 (400MG) TABS 09/22/22 Vit W-Ca,Fe,FA(<1 mg) ( Vitamins) 27 Mg Iron-800 Mcg Tablet, 1 EACH PO DAILY, TAB 09/22/22 Meloxicam (Meloxicam) 15 Mg Tablet, 15 MG PO DAILY FILLED 07-16-2022 # DAY SUPPLY 09/22/22 Metoprolol Succinate (Metoprolol Succinate) 25 Mg Tab.er.24h, 25 MG PO DAILY 09/22/22 Alprazolam (Alprazolam) 0.5 Mg Tablet, 0.5 MG PO QID PRN for ANXIETY 09/22/22 Escitalopram Oxalate (Escitalopram Oxalate) 10 Mg Tablet, 10 MG PO DAILY TAKES ALONG with 20MG TO EQUAL 30MG FILLED 07-16-2022 # DAY SUPPLY 09/22/22 Oxycodone HCl/Acetaminophen (Oxycodone-Acetaminophen 10-325) 10 Mg-325 Mg Tablet, 1 EACH PO TID 09/21/22 Escitalopram Oxalate (Escitalopram Oxalate) 20 Mg Tablet, 20 MG PO DAILY TAKES ALONG WITH 10MG TO EQUAL 30MG 09/21/22 Amitriptyline HCl (Amitriptyline HCl) 150 Mg Tablet, 150 MG PO HS 09/21/22 Pantoprazole Sodium (Pantoprazole Sodium) 40 Mg Tablet.dr, 40 MG PO DAILY 09/21/22 Furosemide (Furosemide) 40 Mg Tablet, 40 MG PO BID 09/21/22 Potassium Chloride (Potassium Chloride) 10 Meq Capsule.er, 10 MEQ PO DAILY PRN for FLUID RETENTION 09/21/22 Dextroamphetamine/Amphetamine (Amphetamine Salts 20 mg Tablet) 20 Mg Tablet, 10 MG PO BID TAKES 1/2 OF (20MG) TAB 09/21/22 Objective Exam R IF: continued swelling, erythema, no purulent drainage Vital Signs Vital Signs Date Time Temp Pulse Resp B/P (MAP) Pulse Ox O2 Delivery O2 Flow Rate FiO2 09/29/22 08:08 36.5 89 18 95/57 (70) 96 Room Air 09/29/22 07:19 61 09/29/22 04:03 36.4 76 14 96/67 (77) 97 Room Air 09/29/22 01:00 74 09/29/22 00:16 76 100/55 09/29/22 00:00 73 Room Air 09/28/22 22:55 36.1 76 13 100/55 (70) 96 Room Air 09/28/22 20:28 36.1 87 20 96/69 (78) 97 Room Air 09/28/22 20:00 98 Room Air 09/28/22 19:41 80 97/70 09/28/22 19:00 82 09/28/22 16:00 35.9 80 10 97/70 (79) 96 Room Air 09/28/22 12:28 101 09/28/22 11:36 36.0 88 25 103/72 (82) I & O 09/29/22 06:59 Intake Total 3420 ml Output Total 5000 ml Balance -1580 ml Lab Results Laboratory Tests 09/29/22 03:45: White Blood Count 9.4, Red Blood Count 3.44L, Hemoglobin 10.0L, Hematocrit 31L, Mean Corpuscular Volume 90, Mean Corpuscular Hemoglobin 29, Mean Corpuscular Hemoglobin Concent 32, Red Cell Distribution Width 13.1, Platelet Count 439H, Mean Platelet Volume 8.7L, Immature Granulocyte % (Auto) 3, Neutrophils (%) (Auto) 52, Lymphocytes (%) (Auto) 29, Monocytes (%) (Auto) 9, Eosinophils (%) (Auto) 6, Basophils (%) (Auto) 1, Neutrophils # (Auto) 4.9, Lymphocytes # (Auto) 2.7, Monocytes # (Auto) 0.8, Eosinophils # (Auto) 0.6H, Basophils # (Auto) 0.1, Immature Granulocyte # (Auto) 0.3H, Sodium Level 139, Potassium Level 4.3, Chloride Level 101, Carbon Dioxide Level 28, Anion Gap 10, Blood Urea Nitrogen 14, Creatinine 1.18, Estimat Glomerular Filtration Rate 55, BUN/Creatinine Ratio 12, Glucose Level 88, Calcium Level 9.1, Corrected Calcium 9.7, Total Bilirubin 0.2, Aspartate Amino Transf (AST/SGOT) 34, Alanine Aminotransferase (ALT/SGPT) 41, Alkaline Phosphatase 142H, Total Protein 6.3L, Albumin 3.2 09/29/22 09:39: Vancomycin Level Trough 15.2 Microbiology 09/23/22 Gram Stain - Final, Resulted 09/23/22 Anaerobic Culture - Preliminary, Resulted No anaerobes isolated 09/23/22 Surgical Culture - Final, Resulted Streptococcus pyogenes Grp A See Comments 09/22/22 Urine Culture - Final, Complete NO GROWTH 09/21/22 Blood Culture - Final, Complete No growth Assessment and Plan Assessment R IF Tenosynovitis Problem List R IF Tenosynovitis Plan Has had prior I&D and has been on antibiotics. Has continued swelling/pain. I have recommended proceeding with second irrigation/debridement. She has agreed to proceed. Final Diagonsis R IF Tenosynovitis Level of the visit: Level 3 (global) MICHELLE CHAVEZ MD September 29, 2022 11:28
[2022-09-29] MEDS ORDERED: NEO/POLY/BAC (NEOSPORIN) OINT 15 GM TUBE ONE (12:13)
[2022-09-29] MEDS ORDERED: SEVOFLURANE (ULTANE) 15 ML INHAL SOLN ONE (12:19)
--- NOTE | 2022-09-29 12:29 | Anesthesia-General Post-Op ---
General Patient Condition Mental Status/LOC: Same as Preop Cardiovascular: Satisfactory Nausea/Vomiting: Absent Respiratory: Satisfactory Pain: Controlled Complications: Absent Post Op Complications Complications None Follow Up Care/Instructions Patient Instructions None needed. Anesthesia/Patient Condition Patient Condition Patient is doing well, no complaints, stable vital signs, no apparent adverse anesthesia problems. No complications reported per nursing. ASHA FISCHER CRNA September 29, 2022 12:29
[2022-09-29] MEDS ORDERED: morphine INJ 10 MG/ML 1ML (SYR OR VIAL) IVP ONE (12:30)
[2022-09-29] MEDS ORDERED: ONDANSETRON 4 MG/2 ML (SDV) Z0FRAN IVP PRN (12:30)
[2022-09-29] MEDS ORDERED: MEPERIDINE (DEMEROL) INJ 50 MG/ML IVP ONE (12:30)
--- NOTE | 2022-09-29 12:31 | Operative Report - Ortho ---
Operative Report Surgeon (s)/Progressive Die Maker (s) Surgeon MICHELLE CHAVEZ MD Progressive Die Maker n/a Pre-Operative Diagnosis Right Index Finger Flexor Tenosynovitis Post-Operative Diagnosis same Operative Report Date of Procedure: September 29, 2022 Name of Procedure Performed: Irrigation and Debridement of Right Index Finger and Flexor Tendon Sheath Description & Findings After obtaining informed consent and marking the patient in the preoperative holding area, the patient was taken to the operating room. General anesthesia was induced. Surgical timeout was taken. The right upper extremity was prepped and draped in the usual sterile fashion. Attention was initially turned to a bullous lesion that had developed over the side of the finger. A puncture was made and a swab was obtained to send for culture. Scissors and pickups were used to unroof it. No sinus tract or other purulent collections were noted. Prior incisions were re-exposed at the distal flexion crease of the index finger and carried down to the tendon sheath and at the proximal flexion crease and dissection was carried down to the tendon sheath. There was no purulent material encountered and the tissue did look healthy. 18 gauge angiocath was inserted and the tendon sheath was irrigated with normal saline. After irrigation, no further evidence of purulence was noted. The wounds were packed with 1/4" gauze wet to dry with Vashe solution, the area of debridement on the side of the finger was dressed with antibiotic ointment and xeroform and a bulky dressing was placed. Patient tolerated the procedure well and was stable to r ecovery room. Anesthesia Type General Estimated Blood Loss minimal Packing 1/4" gauze with Vashe solution Specimen(s) collected/removed Swab sent for culture MICHELLE CHAVEZ MD September 29, 2022 12:31
[2022-09-29] MEDS ORDERED: morphine INJ 10 MG/ML 1ML (SYR OR VIAL) ONE (12:45)
[2022-09-29] MEDS: ENOXAPARIN 40 MG/0.4 ML (LOVENOX) SYR SQ SCH (14:06)
[2022-09-29] MEDS: VANCOMYCIN 750 MG/NS 250 ML IVPB IV SCH ×2 (14:06)
--- NOTE | 2022-09-29 14:58 | Progress Note - Hospitalist ---
[facility] 09/29/22 1458: Subjective HPI/CC On Admission Pt is a 57yoCF who presented to the ER due to finger pain and swelling. She reported to the ER that she got scratched by a cat. Went to the urgent care at her work and was given oral antibiotics. Took one dose but swelling worsened so she came to ER. She was found to have a leukocytosis and was febrile on arrival. I&D in OR performed on 09/[address] Linares. Culture grew group a strep. Subjective/Events-last exam Today patient states she is feeling worse and finger is more painful with pain and redness into palm. Also notes blisters on finger. Denies fevers or chills but notes warmth of the finger and hand. She has lower back pain that is normal for her. Had a regular BM yesterday. No issues with urination. Review of Systems General: No Chills, No Night Sweats HEENT: No Head Aches, No Visual Changes Pulmonary: No Dyspnea, No Pleuritic Chest Pain Cardiovascular: No: Chest Pain, Palpitations, Edema Gastrointestinal: No: Nausea, Vomiting, Abdominal Pain Genitourinary: No Dysuria, No Frequency Musculoskeletal: back pain, hand pain Neurological: No: Weakness, Numbness Objective Exam Vital Signs Vital Signs Date Time Temp Pulse Resp B/P (MAP) Pulse Ox O2 Delivery O2 Flow Rate FiO2 09/29/22 13:20 36.6 20 109/60 (76) 96 OxyMask 2.00 09/29/22 08:08 89 Capillary Refill : Less Than 3 SecondsLess Than 3 Seconds General Appearance: WD/WN, Anxious HEENT: PERRL/EOMI, Moist Mucous Membranes Respiratory: Chest Non Tender, Lungs Clear, No Accessory Muscle Use, No Respiratory Distress Cardiovascular: Regular Rate, Rhythm, No Edema Gastrointestinal: Non Tender, Soft Extremity: Normal Capillary Refill, No Pedal Edema, Other (right index finger with dressing, erythema and warmth extending beyond MCP) Neurologic/Psychiatric: Alert, Oriented x3 Skin: Normal Color, Warm/Dry Results/Procedures Lab Laboratory Tests 09/29/22 03:45 Patient resulted labs reviewed. Imaging: Reviewed Imaging Report Assessment/Plan Assessment and Plan Assess & Plan/Chief Complaint Sepsis due to cellulitis and tenosynovitis of right index finger POD #6 from first I&D, Second I&D with Dr. Linares today showed healthy deep tissue Operative wound culture with strep pyogenes No bacteremia Continue IV abx but given worsening symptoms switch to clindamycin and ampicillin Orthopedic Surgery following Fentanyl for pain Continue home oral pain meds as well Anxiety Chronic pain Continue home meds as able DVT ppx: DALTON Roberts MD 09/29/22 1608: Subjective HPI/CC On Admission Date Seen by Provider: September 29, 2022 Time Seen by Provider: 10:35 Assessment/Plan Assessment and Plan Assess & Plan/Chief Complaint Returning to OR today. Transition to Ampicillin and Clindamycin for Strep pyogenes. Transition from Fentanyl to Dilaudid. Diagnosis/Problems Diagnosis/Problems (1) Sepsis Status: Acute (2) Tenosynovitis of right hand Status: Acute (3) Infection due to Streptococcus pyogenes Status: Acute (4) Pain Status: Acute Supervisory-Addendum Brief Verification & Attestation Participated in pt care: history, MDM, physical Personally performed: exam, history, MDM, supervision of care Care discussed with: Medical Student Procedures: n/a Results interpretation: Verified all documentation A medical student performed and documented this service in my presence. I reviewed and verified all information documented by the medical student and made modifications to such information, when appropriate. I personally performed the physical exam and medical decision making. WING BENITEZ September 29, 2022 14:58 DALTON ESTRADA MD September 29, 2022 16:08
[2022-09-29] MEDS ORDERED: AMPICILLIN FOR IV USE 2,000 MG in WATER (STERILE) FOR INJECTION 14.8 ML IV SCH (15:30)
[2022-09-29] MEDS ORDERED: CLINDAMYCIN 600 MG/50 ML IVPB 50 ML IV SCH (15:45)
[2022-09-29] MEDS: HYDROmorphone 2 MG/ML VIAL (DILAUDID) IV PRN ×3 (16:40→20:53)
[2022-09-29] MEDS: AMPICILLIN 2,000 MG/NS 100 ML IVPB IV SCH ×4 (16:41→20:49)
[2022-09-29] MEDS ORDERED: NS IV 500 ML 500 ML ONE (20:44)
[2022-09-29] MEDS: ALPRAZolam 0.5 MG (XANAX) TAB PO PRN (20:50)
[2022-09-29] MEDS: AMITRIPTYLINE 150 MG (ELAVIL) TABLET PO SCH (20:51)
[2022-09-29] MEDS: CLINDAMYCIN 600 MG/50 ML IVPB 50 ML IV SCH (21:27)
[2022-09-29] MEDS ORDERED: TROUGH ORDER-PHARMACY XX NR (21:30)
[2022-09-30 02:43] VITALS: BP 115/70
[2022-09-30] MEDS: AMPICILLIN 2,000 MG/NS 100 ML IVPB IV SCH ×8 (02:44→20:58)
[2022-09-30] MEDS: HYDROmorphone 2 MG/ML VIAL (DILAUDID) IV PRN ×2 (02:45→10:55)
[2022-09-30 04:28] LABS: BASOPHILS # (AUTO) 0.1 10^3/uL (0.0-0.1); BASOPHILS % (AUTO) 1 % (0-10); EOSINOPHILS # (AUTO) 0.5 10^3/uL (0.0-0.3); EOSINOPHILS % (AUTO) 6 % (0-10); HEMATOCRIT 30 % (35-52); HEMOGLOBIN 9.8 g/dL (11.5-16.0); LYMPHOCYTES # (AUTO) 2.7 10^3/uL (1.0-4.0); LYMPHOCYTES % (AUTO) 29 % (12-44); MEAN CORPUSCULAR HEMOGLOBIN 30 pg (25-34); MEAN CORPUSCULAR HGB CONC 33 g/dL (32-36); MEAN CORPUSCULAR VOLUME 91 fL (80-99); MEAN PLATELET VOLUME 8.6 fL (9.0-12.2); MONOCYTES # (AUTO) 0.8 10^3/uL (0.0-1.0); MONOCYTES % (AUTO) 8 % (0-12); NEUTROPHILS # (AUTO) 5.1 10^3/uL (1.8-7.8); NEUTROPHILS % (AUTO) 55 % (42-75); PLATELET COUNT 477 10^3/uL (130-400); WHITE BLOOD COUNT 9.4 10^3/uL (4.3-11.0)
[2022-09-30 04:48] LABS: ALBUMIN 3.3 GM/DL (3.2-4.5); BILIRUBIN,TOTAL 0.2 MG/DL (0.1-1.0); CALCIUM 9.1 MG/DL (8.5-10.1); CREATININE SERUM 1.14 MG/DL (0.60-1.30); POTASSIUM 3.9 MMOL/L (3.6-5.0); TOTAL PROTEIN 6.6 GM/DL (6.4-8.2)
[2022-09-30] MEDS: FUROSEMIDE 40 MG (LASIX) TAB PO SCH ×2 (06:13→17:50)
[2022-09-30] MEDS: CLINDAMYCIN 600 MG/50 ML IVPB 50 ML IV SCH ×3 (06:13→20:58)
[2022-09-30 08:00] VITALS: BP 112/81
[2022-09-30] MEDS: fentaNYL PATCH 50 MCG (DURAGESIC) TD SCH (09:07)
[2022-09-30] MEDS: MAGNESIUM OXIDE (MAG-OX)400 MG TAB PO SCH (09:07)
[2022-09-30] MEDS: LACTOBACILLUS ACIDOPHILUS (PROBIOTIC) CAPSULE PO SCH ×3 (09:08→17:50)
[2022-09-30] MEDS: oxyCODONE/APAP 10/325MG (PERCOCET 10) TABLET PO SCH ×2 (09:08→14:31)
[2022-09-30] MEDS: ESCITALOPRAM 20 MG TAB PO SCH (09:10)
[2022-09-30] MEDS: ESCITALOPRAM 10 MG TAB PO SCH (09:10)
--- NOTE | 2022-09-30 09:10 | Progress Note - Hospitalist ---
[facility] 09/30/22 0910: Subjective HPI/CC On Admission Pt is a 57yoCF who presented to the ER due to finger pain and swelling. She reported to the ER that she got scratched by a cat. Went to the urgent care at her work and was given oral antibiotics. Took one dose but swelling worsened so she came to ER. She was found to have a leukocytosis and was febrile on arrival. I&D in OR performed on 09/[address] Linares. Culture grew group a strep. Subjective/Events-last exam Patient reports pain at 10/10 in severity today that is throbbing in nature but states it is better than yesterday. Her finger and hand still have some redness and warmth. Denies fevers. She does report a dry cough that she attributes to allergies. Review of Systems General: No Chills, No Night Sweats HEENT: No Head Aches, No Sore Throat Pulmonary: No Dyspnea; Cough Cardiovascular: No: Chest Pain, Palpitations Gastrointestinal: No: Nausea, Vomiting Genitourinary: No Dysuria, No Hematuria Musculoskeletal: back pain (chronic), hand pain Neurological: Numbness (tip of index finger); No: Weakness Objective Exam Vital Signs Vital Signs Date Time Temp Pulse Resp B/P (MAP) Pulse Ox O2 Delivery O2 Flow Rate FiO2 09/30/22 08:00 36.6 93 22 112/81 (91) 95 Room Air 09/29/22 13:20 2.00 Capillary Refill : Less Than 3 SecondsLess Than 3 Seconds General Appearance: No Apparent Distress, WD/WN, Anxious Respiratory: Chest Non Tender, Lungs Clear, Normal Breath Sounds, No Accessory Muscle Use, No Respiratory Distress Cardiovascular: Regular Rate, Rhythm, Normal Peripheral Pulses Gastrointestinal: Non Tender, Soft Extremity: Pedal Edema (minimal b/l LE edema), Other (right index finger with dressing, erythema and warmth extending to MCP somewhat improved, 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 Imaging: Reviewed Imaging Report Assessment/Plan Assessment and Plan Assess & Plan/Chief Complaint Sepsis due to cellulitis and tenosynovitis of right index finger First I&D 09/23, Second I&D with Dr. Linares 09/29 showed healthy deep tissue Operative wound culture with strep pyogenes No bacteremia Continue IV abx - clindamycin and ampicillin Orthopedic Surgery following Dilaudid for pain Continue home oral pain meds as well OT ordered Anxiety Chronic pain Continue home meds as able DVT ppx: Lovenox Move to 4th flood today given clinical improvement DALTON ESTRADA MD 09/30/22 1900: Subjective HPI/CC On Admission Date Seen by Provider: September 30, 2022 Time Seen by Provider: 09:45 Assessment/Plan Assessment and Plan Assess & Plan/Chief Complaint Pain improved. Continue antibiotics. Ortho following. Diagnosis/Problems Diagnosis/Problems (1) Tenosynovitis of right hand Status: Acute (2) Infection due to Streptococcus pyogenes Status: Acute (3) Pain Status: Acute (4) Sepsis Status: Resolved Resolution Date/Time: 09/30/22 @ 19:00 Supervisory-Addendum Brief Verification & Attestation Participated in pt care: history, MDM, physical Personally performed: exam, history, MDM, supervision of care Care discussed with: Medical Student Procedures: n/a Results interpretation: Verified all documentation A medical student performed and documented this service in my presence. I reviewed and verified all information documented by the medical student and made modifications to such information, when appropriate. I personally performed the physical exam and medical decision making. WING BENITEZ September 30, 2022 09:10 DALTON ESTRADA MD September 30, 2022 19:00
[2022-09-30] MEDS: MELOXICAM 7.5 MG (MOBIC) TABLET PO SCH (09:11)
[2022-09-30] MEDS: HYPOCHLOROUS ACID/NaCl (VASHE) 250 ML IR SCH ×2 (09:11→21:15)
[2022-09-30] MEDS: PANTOPRAZOLE 40 MG (PROTONIX) TAB PO SCH (09:11)
[2022-09-30] MEDS ORDERED: TROUGH ORDER-PHARMACY XX ONE (09:30)
[2022-09-30] MEDS ORDERED: FENTANYL PATCH REMOVAL TP SCH (09:59)
--- NOTE | 2022-09-30 10:28 | Progress Note - Ortho ---
Progress Note Subjective Date of Exam 09/30/22 Chief Complaint s/p I&D of right IF tenosynovitis HPI/Events since last exam states has throbbing, decreased sensation in tip of finger Review of Systems - Allergies: Coded Allergies: TUANo Known Allergies (Verified Allergy, Unknown, 09/14/05) Home Meds Reported Medications Magnesium Oxide (Magnesium) 400 Mg Magnesium Tablet, 800 MG PO DAILY, TAB TAKES 2 (400MG) TABS 09/22/22 Vit W-Ca,Fe,FA(<1 mg) ( Vitamins) 27 Mg Iron-800 Mcg Tablet, 1 EACH PO DAILY, TAB 09/22/22 Meloxicam (Meloxicam) 15 Mg Tablet, 15 MG PO DAILY FILLED 07-16-2022 # DAY SUPPLY 09/22/22 Metoprolol Succinate (Metoprolol Succinate) 25 Mg Tab.er.24h, 25 MG PO DAILY 09/22/22 Alprazolam (Alprazolam) 0.5 Mg Tablet, 0.5 MG PO QID PRN for ANXIETY 09/22/22 Escitalopram Oxalate (Escitalopram Oxalate) 10 Mg Tablet, 10 MG PO DAILY TAKES ALONG with 20MG TO EQUAL 30MG FILLED 07-16-2022 # DAY SUPPLY 09/22/22 Oxycodone HCl/Acetaminophen (Oxycodone-Acetaminophen 10-325) 10 Mg-325 Mg Tablet, 1 EACH PO TID 09/21/22 Escitalopram Oxalate (Escitalopram Oxalate) 20 Mg Tablet, 20 MG PO DAILY TAKES ALONG WITH 10MG TO EQUAL 30MG 09/21/22 Amitriptyline HCl (Amitriptyline HCl) 150 Mg Tablet, 150 MG PO HS 09/21/22 Pantoprazole Sodium (Pantoprazole Sodium) 40 Mg Tablet.dr, 40 MG PO DAILY 09/21/22 Furosemide (Furosemide) 40 Mg Tablet, 40 MG PO BID 09/21/22 Potassium Chloride (Potassium Chloride) 10 Meq Capsule.er, 10 MEQ PO DAILY PRN for FLUID RETENTION 09/21/22 Dextroamphetamine/Amphetamine (Amphetamine Salts 20 mg Tablet) 20 Mg Tablet, 10 MG PO BID TAKES 1/2 OF (20MG) TAB 09/21/22 Objective Exam R Hand: Dressing C/D/I Vital Signs Vital Signs Date Time Temp Pulse Resp B/P (MAP) Pulse Ox O2 Delivery O2 Flow Rate FiO2 09/30/22 07:39 72 09/30/22 03:29 75 12 93 Room Air 09/30/22 02:43 36.7 80 14 115/70 (85) 96 Room Air 09/30/22 01:00 64 09/29/22 23:46 36.2 76 12 86/68 (74) 97 Room Air 09/29/22 20:00 36.7 76 12 119/69 (86) 96 Room Air 09/29/22 20:00 98 Room Air 09/29/22 19:00 90 09/29/22 16:00 36.7 70 13 90/58 (69) 98 Room Air 09/29/22 15:00 80 18 94/70 (78) 96 Room Air 09/29/22 14:28 79 09/29/22 14:15 75 13 91/63 (72) 93 Room Air 09/29/22 13:20 36.6 20 109/60 (76) 96 OxyMask 2.00 09/29/22 13:20 OxyMask 2.00 09/29/22 13:08 20 112/64 (80) 96 OxyMask 4.00 09/29/22 13:07 OxyMask 4.00 09/29/22 13:01 36.5 09/29/22 13:01 36.5 09/29/22 12:53 18 115/73 (87) 97 OxyMask 10.00 09/29/22 12:53 36.5 09/29/22 12:52 OxyMask 10.00 09/29/22 12:38 16 120/66 (84) 98 OxyMask 10.00 09/29/22 12:38 OxyMask 10.00 09/29/22 12:23 OxyMask 10.00 09/29/22 12:23 36.5 16 108/60 (76) 95 OxyMask 10.00 I & O 09/30/22 07:00 Intake Total 1994.4 ml Output Total 4300 ml Balance -2305.6 ml Lab Results Laboratory Tests 09/30/22 04:17: White Blood Count 9.4, Red Blood Count 3.31L, Hemoglobin 9.8L, Hematocrit 30L, Mean Corpuscular Volume 91, Mean Corpuscular Hemoglobin 30, Mean Corpuscular Hemoglobin Concent 33, Red Cell Distribution Width 13.2, Platelet Count 477H, Mean Platelet Volume 8.6L, Immature Granulocyte % (Auto) 2, Neutrophils (%) (Auto) 55, Lymphocytes (%) (Auto) 29, Monocytes (%) (Auto) 8, Eosinophils (%) (Auto) 6, Basophils (%) (Auto) 1, Neutrophils # (Auto) 5.1, Lymphocytes # (Auto) 2.7, Monocytes # (Auto) 0.8, Eosinophils # (Auto) 0.5H, Basophils # (Auto) 0.1, Immature Granulocyte # (Auto) 0.1, Sodium Level 140, Potassium Level 3.9, Chloride Level 100, Carbon Dioxide Level 28, Anion Gap 12, Blood Urea Nitrogen 13, Creatinine 1.14, Estimat Glomerular Filtration Rate 57, BUN/Creatinine Ratio 11, Glucose Level 96, Calcium Level 9.1, Corrected Calcium 9.7, Total Bilirubin 0.2, Aspartate Amino Transf (AST/SGOT) 34, Alanine Aminotransferase (ALT/SGPT) 39, Alkaline Phosphatase 149H, Total Protein 6.6, Albumin 3.3 Microbiology 09/29/22 Gram Stain - Final, Resulted 09/29/22 Anaerobic Culture, Resulted Pending 09/29/22 Surgical Culture - Preliminary, Resulted 09/22/22 Urine Culture - Final, Complete NO GROWTH 09/21/22 Blood Culture - Final, Complete No growth Assessment and Plan Assessment R IF Tenosynovitis s/p 2nd irrigation of tendon sheath and debridement of superficial blister Problem List R IF Tenosynovitis s/p 2nd irrigation of tendon sheath and debridement of superficial blister Plan Dressing Changes Antibiotics Motion/Stretching of Finger Final Diagonsis R IF Tenosynovitis s/p 2nd irrigation of tendon sheath and debridement of superficial blister Level of the visit: Level 3 (global) MICHELLE CHAVEZ MD September 30, 2022 10:28
[2022-09-30] MEDS: ENOXAPARIN 40 MG/0.4 ML (LOVENOX) SYR SQ SCH (14:31)
--- NOTE | 2022-09-30 14:51 | Occupational Therapy Eval ---
OT Evaluation-General/PLF Medical Diagnosis Admission Date Sep 21, 2022 at 23:49 Medical Diagnosis: s/p I&D of right IF digit #2 tenosynovitis Onset Date: Sep 21, 2022 Therapy Diagnosis Therapy Diagnosis: s/p I&D of #2 IP/DIP Height/Weight Height (Feet): 5 Height (Inches): 10.00 Weight (Pounds): 150 Weight (Ounces): 0.0 Precautions Precautions/Isolations: Standard Precautions Referral Physician: SEAN Referral Reason: Evaluation/Treatment, Strengthening/ROM Medical History Current History Cat scratch to finger, septic w/ I&D Social History Home: Single Level Current Living Status: Spouse Entry Into Home: Stairs With Railing ADL-Prior Level of Function SCALE: Activities may be completed with or without assistive devices. 6-Ruaazjnppw-dvhlciv completes the activity by him/herself with no assistance from a helper. 5-Set-up or Clean-up Assistance-helper sets up or cleans up; patient completes activity. [place] assists only prior to or following the activity. 4-Supervision or Touching Assistance-helper provides verbal cues and/or touching/steadying and/or contact guard assistance as patient completes activity. Assistance may be provided throughout the activity or intermittently. 3-Partial/Moderate Assistance-helper does LESS THAN HALF the effort. [place] lifts, holds or supports trunk or limbs, but provides less than half the effort. 2-Substantial/Maximal Assistance-helper does MORE THAN HALF the effort. [place] lifts or holds trunk or limbs and provides more than half the effort. 6-Ywknwqnkf-vdzcys does ALL the effort. Patient does none of the effort to com plete the activity. Or, the assistance of 2 or more helpers is required for the patient to complete the activity. If activity was not attempted, code reason: 7-Patient Refused. 9-Not Applicable-not attempted and the patient did not perform the activity before the current illness, exacerbation or injury. 10-Not Attempted due to Environmental Limitations-(lack of equipment, weather restraints, etc.). 88-Not Attempted due to Medical Conditions or Safety Concerns. Self Care: Independent Functional Cognition: Independent Drive Self: Yes OT Current Status Mental Status/Objective Patient Orientation: Person, Place, Time, Situation Current Hand Dominance: Right Upper Extremity ROM Right #2 IP/DIP restricted ROM d/t I&D , all other WFLS, edema present MCP tender to ROM ADL-Treatment Eating (QC): 6 Oral Hygiene (QC): 6 Shower/Bathe Self (QC): 6 Upper Body Dressing (QC): 6 Lower Body Dressing (QC): 6 On/Off Footwear (QC): 6 Toileting Hygiene (QC): 6 Other Treatments HEP provided for patient, no ROM to IP/.DIP for 2-3 days following surgery. P atient may complete MCP ROM WNLS as pain tolerates, ab/adduction, flex/ext 15-20 reps 3-5 times daily. For sensory impairment lightly rub terrycloth washcloth on tip of finger. OT recommends outpatient Education OT Patient Education: Correct positioning, Home exercise program, Progress toward Goal/Update tx plan, Purpose of tx/functional activities, Reviewed precautions Teaching Recipient: Patient Teaching Methods: Demonstration, Handout, Discussion Response to Teaching: Verbalize Understanding, Return Demonstration OT Photographer Portrait Goals [facility] Goals 1=Demonstrate adherence to instructed precautions during ADL tasks. 2=Patient will verbalize/demonstrate understanding of assistive devices/modifications for ADL. 3=Patient will improve strength/tolerance for activity to enable patient to perform ADL's. OT Education/Plan Problem List/Assessment Assessment: Restricted Funct UE ROM Discharge Recommendations Plan/Recommendations: Discharge/Goals Met Therapy Discharge Recommendati: Other, See Comments (outpatient ) Treatment Plan/Plan of Care Treatment,Training & Education: Yes Patient would benefit from OT for education, treatment and training to promote independence in ADL's, mobility, safety and/or upper extremity function for ADL's. Plan of Care: OTHER (EVAL only) Treatment Duration: September 30, 2022 Frequency: 1 time per week Estimated Hrs Per Day: .25 hour per day Agreement: Yes Rehab Potential: Good Time Start Time: 13:00 Stop Time: 13:20 DATE: September 30, 2022 Total Time Billed (hr/min): 20 Billed Treatment Time EVL 20 min REAL KAY OT September 30, 2022 14:51
[2022-09-30] MEDS: oxyCODONE/APAP 10/325MG (PERCOCET 10) TABLET PO PRN (17:51)
[2022-09-30 20:00] VITALS: BP 93/56
[2022-09-30] MEDS: ALPRAZolam 0.5 MG (XANAX) TAB PO PRN (20:57)
[2022-09-30] MEDS: AMITRIPTYLINE 150 MG (ELAVIL) TABLET PO SCH (20:57)
[2022-09-30 23:23] VITALS: BP 96/62
[2022-10-01 04:15] VITALS: BP 101/64
[2022-10-01] MEDS: FUROSEMIDE 40 MG (LASIX) TAB PO SCH (05:22)
[2022-10-01] MEDS: oxyCODONE/APAP 10/325MG (PERCOCET 10) TABLET PO PRN (05:22)
[2022-10-01] MEDS: AMPICILLIN 2,000 MG/NS 100 ML IVPB IV SCH ×4 (05:22→08:37)
[2022-10-01] MEDS: CLINDAMYCIN 600 MG/50 ML IVPB 50 ML IV SCH (05:22)
[2022-10-01 07:06] VITALS: BP 83/53
[2022-10-01] MEDS: LACTOBACILLUS ACIDOPHILUS (PROBIOTIC) CAPSULE PO SCH ×2 (08:36→14:10)
[2022-10-01] MEDS: MAGNESIUM OXIDE (MAG-OX)400 MG TAB PO SCH (08:36)
[2022-10-01] MEDS: PANTOPRAZOLE 40 MG (PROTONIX) TAB PO SCH (08:37)
[2022-10-01] MEDS: MELOXICAM 7.5 MG (MOBIC) TABLET PO SCH (08:37)
--- NOTE | 2022-10-01 08:38 | Progress Note - Hospitalist ---
[facility] 10/01/22 0838: Subjective HPI/CC On Admission Pt is a 57yoCF who presented to the ER due to finger pain and swelling. She reported to the ER that she got scratched by a cat. Went to the urgent care at her work and was given oral antibiotics. Took one dose but swelling worsened so she came to ER. She was found to have a leukocytosis and was febrile on arrival. I&D in OR performed on 09/[address] Linares. Culture grew group a strep. Subjective/Events-last exam Today patient reports she is overall feeling better. She still has pain in her finger that she feels is not controlled with Percocet. Met with OT yesterday and she has been doing exercises she was taught. Feels her ROM and sensation in the tip of index finger is improved. Wound culture from 2nd I&D without growth Review of Systems General: No Chills, No Night Sweats HEENT: No Head Aches Pulmonary: No Dyspnea; Cough Cardiovascular: No: Chest Pain, Palpitations Gastrointestinal: No: Nausea, Vomiting Objective Exam Vital Signs Vital Signs Date Time Temp Pulse Resp B/P (MAP) Pulse Ox O2 Delivery O2 Flow Rate FiO2 10/01/22 11:24 36.2 71 18 99/62 (74) 94 Room Air 10/01/22 04:15 0.00 0.00 Capillary Refill : Less Than 3 SecondsLess Than 3 Seconds General Appearance: No Apparent Distress, WD/WN Respiratory: Lungs Clear, Normal Breath Sounds, No Respiratory Distress Cardiovascular: Regular Rate, Rhythm, No Murmur Gastrointestinal: Non Tender, Soft Extremity: Pedal Edema (minimal b/l LE), Other (right index finger with dressing, erythema and warmth extending to MCP improved, still operator whiskey to palpation, improved ROM) Neurologic/Psychiatric: Alert, Normal Mood/Affect Skin: Normal Color, Warm/Dry Results/Procedures Lab Patient resulted labs reviewed. Imaging: Reviewed Imaging Report Assessment/Plan Assessment and Plan Assess & Plan/Chief Complaint Sepsis due to cellulitis and tenosynovitis of right index finger First I&D 09/23, Second I&D with Dr. Linares 09/29 showed healthy deep tissue Operative wound culture with strep pyogenes 09/23, culture 09/29 with no growth preliminary No bacteremia IV abx - clindamycin and ampicillin, switch to amoxicillin 500 TID PO for 7d at d/c Orthopedic Surgery following Pain control with PO meds and fentanyl patch OT evaluated and gave pt exercises for ROM Wound care consult ordered Anxiety Chronic pain Continue home meds as able DVT ppx: Lovenox D/c today pending patient ridcatherine DALTON ESTRADA MD 10/01/22 1753: Subjective HPI/CC On Admission Date Seen by Provider: October 01, 2022 Time Seen by Provider: 11:00 Assessment/Plan Assessment and Plan Assess & Plan/Chief Complaint Transition to oral antibiotics. Oral pain meds ordered. Discharging home today. Diagnosis/Problems Diagnosis/Problems (1) Sepsis Status: Resolved Resolution Date/Time: 09/30/22 @ 19:00 (2) Tenosynovitis of right hand Status: Acute (3) Infection due to Streptococcus pyogenes Status: Acute (4) Pain Status: Acute Supervisory-Addendum Brief Verification & Attestation Participated in pt care: history, MDM, physical Personally performed: exam, history, MDM, supervision of care Care discussed with: Medical Student Procedures: n/a Results interpretation: Verified all documentation A medical student performed and documented this service in my presence. I reviewed and verified all information documented by the medical student and made modifications to such information, when appropriate. I personally performed the physical exam and medical decision making. WING BENITEZ October 01, 2022 08:38 DALTON ESTRADA MD October 01, 2022 17:53
[2022-10-01] MEDS: HYPOCHLOROUS ACID/NaCl (VASHE) 250 ML IR SCH (09:00)
[2022-10-01] MEDS: ESCITALOPRAM 20 MG TAB PO SCH (10:09)
[2022-10-01] MEDS: ESCITALOPRAM 10 MG TAB PO SCH (10:10)
[2022-10-01] MEDS ORDERED: oxyCODONE/APAP 10/325MG (PERCOCET 10) TABLET PO PRN (11:00)
[2022-10-01 11:24] VITALS: BP 99/62
--- NOTE | 2022-10-01 11:33 | Wound Care Assessment ---
Wound Care Assessment Date Seen by Provider: October 01, 2022 Time Seen by Provider: 11:10 Chief Complaint Right Index Finger Flexor Tenosynovitis EBEN Cody is a 57 yo female who was admitted to inpatient medical care for sepsis secondary to right index finger flexor tenosynovitis. She reports she first noticed a wound on the lateral aspect of her right index finger 10-11 days ago, which quickly became erythematous, swollen, and painful. She was seen in Urgent Care with outpatient antibiotic prescription initiated, though she never filled those medications; she presented later that day to the [facility] emergency department and was diagnosed with sepsis and admitted. The patient has had 2 surgical debridements of her right index finger performed this far in her hospitalization, most recently on 09/29. She is currently on an antibiotic regimen of ampicillin and clindamycin. The patient endorses continued right finger pain with accompanying distal numbness. Dr. Linares is following and has recommended appropriate post-operative dressings (iodoform gauze with Vashe for cleansing and Xeroform/Telfa (non-adherent secondary dressings) to be changed twice daily. She has plans for follow up in [place] at their wound care clinic already (she works for [employer]). Smoking Status: Former Smoker Review of Systems General: No Chills HEENT: No Head Aches Pulmonary: No Dyspnea, No Cough Cardiovascular: No: Chest Pain Gastrointestinal: No: Abdominal Pain Musculoskeletal: hand pain Neurological: Numbness Exam Vital Signs Date Time Temp Pulse Resp B/P (MAP) Pulse Ox O2 Delivery O2 Flow Rate FiO2 10/01/22 11:24 36.2 71 18 99/62 (74) 94 Room Air 10/01/22 04:15 0.00 0.00 Capillary Refill : Less Than 3 SecondsLess Than 3 Seconds General Appearance: WD/WN, no apparent distress HEENT: PERRL/EOMI Skin Problem Location: upper extremities (right index finger) Right index finger is enlarged with diffuse erythema. Deroofed blister approximately 1 cm in diameter is present on the medial aspect of the right i ndex finger. Healed superficial scratch is visible on the lateral aspect of the middle phalanx. 2 surgical incisions are present, one at the MCP 1.3x0.3x0.6 cm and one at the DIP 2.0x0.2x0.6 cm. Both wounds express blood, without purulent drainage or odor. No necrosis is visible. Results Microbiology 09/29/22 Gram Stain - Final, Resulted 09/29/22 Anaerobic Culture, Resulted Pending 09/29/22 Surgical Culture - Preliminary, Resulted No growth 09/22/22 Urine Culture - Final, Complete NO GROWTH 09/21/22 Blood Culture - Final, Complete No growth Microbiology 09/29/22 Gram Stain - Final, Resulted 09/29/22 Anaerobic Culture, Resulted Pending 09/29/22 Surgical Culture - Preliminary, Resulted No growth Assessment/Plan/Dx A: 1. Right Index Finger Flexor Tenosynovitis 2. Sepsis 3. S/p right index finger flexor tendon debridement and irrigation x2 P: 1. Continue targeted antibiotics per primary team. 2.Defer to primary team 3. Continue to follow Dr. Linares's post-surgical dressings as ordered and follow up with wound care as scheduled. Supervisory-Addendum Brief Verification & Attestation Participated in pt care: history, MDM, physical Personally performed: exam, history, MDM, supervision of care Care discussed with: Medical Student Procedures: n/a Results interpretation: Verified all documentation MD HAYDEN Marion KELVIN October 01, 2022 11:32 MARCEL CARLOS MD October 01, 2022 12:46
--- NOTE | 2022-10-01 12:08 | Progress Note - Ortho ---
Progress Note Subjective Date of Exam 10/01/22 Chief Complaint s/p I&D of right index finger HPI/Events since last exam doing better overall, still pain with motion Review of Systems - Allergies: Coded Allergies: NKANo Known Allergies (Verified Allergy, Unknown, 09/14/05) Home Meds Reported Medications Magnesium Oxide (Magnesium) 400 Mg Magnesium Tablet, 800 MG PO DAILY, TAB TAKES 2 (400MG) TABS 09/22/22 Vit W-Ca,Fe,FA(<1 mg) ( Vitamins) 27 Mg Iron-800 Mcg Tablet, 1 EACH PO DAILY, TAB 09/22/22 Meloxicam (Meloxicam) 15 Mg Tablet, 15 MG PO DAILY FILLED 07-16-2022 # DAY SUPPLY 09/22/22 Metoprolol Succinate (Metoprolol Succinate) 25 Mg Tab.er.24h, 25 MG PO DAILY 09/22/22 Alprazolam (Alprazolam) 0.5 Mg Tablet, 0.5 MG PO QID PRN for ANXIETY 09/22/22 Escitalopram Oxalate (Escitalopram Oxalate) 10 Mg Tablet, 10 MG PO DAILY TAKES ALONG with 20MG TO EQUAL 30MG FILLED 07-16-2022 # DAY SUPPLY 09/22/22 Oxycodone HCl/Acetaminophen (Oxycodone-Acetaminophen 10-325) 10 Mg-325 Mg Tablet, 1 EACH PO TID 09/21/22 Escitalopram Oxalate (Escitalopram Oxalate) 20 Mg Tablet, 20 MG PO DAILY TAKES ALONG WITH 10MG TO EQUAL 30MG 09/21/22 Amitriptyline HCl (Amitriptyline HCl) 150 Mg Tablet, 150 MG PO HS 09/21/22 Pantoprazole Sodium (Pantoprazole Sodium) 40 Mg Tablet.dr, 40 MG PO DAILY 09/21/22 Furosemide (Furosemide) 40 Mg Tablet, 40 MG PO BID 09/21/22 Potassium Chloride (Potassium Chloride) 10 Meq Capsule.er, 10 MEQ PO DAILY PRN for FLUID RETENTION 09/21/22 Dextroamphetamine/Amphetamine (Amphetamine Salts 20 mg Tablet) 20 Mg Tablet, 10 MG PO BID TAKES 1/2 OF (20MG) TAB 09/21/22 Objective Exam R IF: less swelling, no streaking, able to flex and extend some but worries about pain Vital Signs Vital Signs Date Time Temp Pulse Resp B/P (MAP) Pulse Ox O2 Delivery O2 Flow Rate FiO2 5/10/23 11:24 36.2 71 18 99/62 (74) 94 Room Air 10/01/22 07:06 36.1 68 18 83/53 (63) 93 Room Air 10/01/22 04:15 36.6 64 20 101/64 (76) 95 Room Air 0.00 0.00 09/30/22 23:23 36.5 60 20 96/62 (73) 94 Room Air 0.00 0.00 09/30/22 20:16 97 Room Air 09/30/22 20:00 36.8 66 20 93/56 (68) 94 Room Air I & O 10/01/22 06:59 Intake Total 1200 ml Output Total 1000 ml Balance 200 ml Lab Results Microbiology 09/29/22 Gram Stain - Final, Resulted 09/29/22 Anaerobic Culture, Resulted Pending 09/29/22 Surgical Culture - Preliminary, Resulted No growth 09/22/22 Urine Culture - Final, Complete NO GROWTH 09/21/22 Blood Culture - Final, Complete No growth Assessment and Plan Assessment R IF Tenosynovitis s/p I&D Problem List R IF Tenosynovitis s/p I&D Plan Continue dressing changes Agree with converting to oral antibiotics Ok with D/C home needs to be aggressive with motion Final Diagonsis R IF Tenosynovitis s/p I&D Level of the visit: Level 3 (global) MICHELLE CHAVEZ MD October 01, 2022 12:08
[2022-10-01] MEDS ORDERED: FENT1PAT8 TD (13:08)
[2022-10-01] MEDS ORDERED: OXYC-556 PO (13:08)
[2022-10-01] MEDS ORDERED: AMOX500C2 PO (13:08)
[2022-10-01] MEDS ORDERED: AMOXICILLIN 250 MG (POLYMOX) CAP PO NR (13:15)
[2022-10-01] MEDS: ENOXAPARIN 40 MG/0.4 ML (LOVENOX) SYR SQ SCH (14:11)
[2022-10-01 15:01] VITALS: BP 99/62
--- NOTE | 2022-10-01 15:57 | Discharge Summary ---
Discharge Summary Hospital Course Problems/Dx: (1) Sepsis Status: Resolved (2) Tenosynovitis of right hand Status: Acute (3) Infection due to Streptococcus pyogenes Status: Acute (4) Pain Status: Acute Hospital Course Date of Admission: Sep 21, 2022 at 23:49 Admission Diagnosis : Sepsis due to tenosynovitis Family Physician/Provider: Kash Salmeron DO Date of Discharge: 10/01/22 Discharge Diagnosis: Sepsis due to tenosynovitis Hospital Course: Max Cody is a 57 year old female who was admitted with sepsis due to tenosynovitis. She was scratched by a cat and had a wound on her hand. The wound worsened and she reports taking Augmentin. The wound continued to worsen and she came to the ER. She was started on broad spectrum IV antibiotics. Orthopedic surgery was consulted and assisted with her care. She underwent a debridement on 09/23. The surgical culture grew Strep pyogenes. She began having more pain and decreased range of motion and was subsequently taken back for further debridement on 09/29. She was transitioned to IV Ampicillin and Clindamyin. The repeat surgical culture had no growth and the remaining tissue reportedly appeared healthy. Her pain improved post-operatively. She was transitioned to oral Amoxicillin. She was given a small supply of pain medications to treat her acute pain. She was provided with wound care instructions. She was discharged home in stable condition. Labs and Pending Lab Test: Microbiology 09/29/22 Gram Stain - Final, Resulted 09/29/22 Anaerobic Culture, Resulted Pending 09/29/22 Surgical Culture - Preliminary, Resulted No growth 09/22/22 Urine Culture - Final, Complete NO GROWTH 09/21/22 Blood Culture - Final, Complete No growth Home Meds Active Amoxicillin 500 Mg Capsule 500 Mg PO TID 6 Days Fentanyl Patch 25 MCG (Fentanyl) 25 Mcg/Hour Patch.td72 25 Mcg TD Q72H 12 Days Oxycodone-Acetaminophen 10-325 (Oxycodone HCl/Acetaminophen) 10 Mg-325 Mg Tablet 1-2 Each PO Q4H PRN 7 Days Reported Magnesium (Magnesium Oxide) 400 Mg Magnesium Tablet 800 Mg PO DAILY TAKES 2 (400MG) TABS Vitamins ( Vit W-Ca,Fe,FA(<1 mg)) 27 Mg Iron-800 Mcg Tablet 1 Each PO DAILY Meloxicam 15 Mg Tablet 15 Mg PO DAILY FILLED 07-16-2022 #30/ DAY SUPPLY Metoprolol Succinate 25 Mg Tab.er.24h 25 Mg PO DAILY Alprazolam 0.5 Mg Tablet 0.5 Mg PO QID PRN Escitalopram Oxalate 10 Mg Tablet 10 Mg PO DAILY TAKES ALONG with 20MG TO EQUAL 30MG FILLED 07-16-2022 #30/30 DAY SUPPLY Escitalopram Oxalate 20 Mg Tablet 20 Mg PO DAILY TAKES ALONG WITH 10MG TO EQUAL 30MG Amitriptyline HCl 150 Mg Tablet 150 Mg PO HS Pantoprazole Sodium 40 Mg Tablet.dr 40 Mg PO DAILY Furosemide 40 Mg Tablet 40 Mg PO BID Potassium Chloride 10 Meq Capsule.er 10 Meq PO DAILY PRN Amphetamine Salts 20 mg Tablet (Dextroamphetamine/Amphetamine) 20 Mg Tablet 10 Mg PO BID TAKES 1/2 OF (20MG) TAB Assessment/Pt Instructions See instructions Discharge Planning: >30 minutes discharge planning Discharge Instructions Discharge Diet: No Restrictions Activity as Tolerated: Yes Consultations Orthopedic surgery Discharge Physical Examination Vital Signs Vital Signs Date Time Temp Pulse Resp B/P (MAP) Pulse Ox O2 Delivery O2 Flow Rate FiO2 10/01/22 15:01 36.2 71 18 99/62 94 Room Air 0.00 Allergies: Coded Allergies: NKANo Known Allergies (Verified Allergy, Unknown, 09/14/05) Discharge Summary Date of Admission Sep 21, 2022 at 23:49 Date of Discharge Discharge Date: October 01, 2022 Discharge Time: 15:57 Admission Diagnosis Sepsis Consults/Procedures Consulations Orthopedic surgery Procedures I&D x2 Discharge Diagnosis Sepsis due to tenosynovitis (1) Sepsis Status: Resolved (2) Tenosynovitis of right hand Status: Acute (3) Infection due to Streptococcus pyogenes Status: Acute (4) Pain Status: Acute DALTON ESTRADA MD October 01, 2022 15:57
[2022-10-01 16:07] VITALS: BP 110/64
[2022-10-01] MEDS ORDERED: AMOXICILLIN 500 MG (POLYMOX) CAP PO SCH (21:00)
[2022-10-03] MEDS ORDERED: FENTANYL PATCH REMOVAL TP SCH (09:59)
[2022-10-03] MEDS ORDERED: fentaNYL PATCH 25 MCG (DURAGESIC) TOP SCH (10:00)
[2022-10-03] MEDS ORDERED: fentaNYL PATCH 50 MCG (DURAGESIC) TD SCH (10:00)
== END 2022-10-01 17:11 | disposition home or self-care (01) | DRG 855 ==
LOC: EDUNIT# 21:05 → ER 21:08 → ICU 23:49 → CSD 09-23 20:55 → 4TH 09-30 15:09
PROVIDERS: ADMIT Internal Medicine; ATTEND Internal Medicine
PROC: 0L970ZZ Drainage of Right Hand Tendon, Open Approach (ICD-10-PCS; principal; 2022-09-23 12:38)
PROC: 0H9FXZZ Drainage of Right Hand Skin, External Approach (ICD-10-PCS; 2022-09-29)
DX: A40.0 Sepsis due to streptococcus, group A (principal); L03.011 Cellulitis of right finger; M65.141 Other infective (teno)synovitis, right hand; N90.89 Other specified noninflammatory disorders of vulva and perineum; R74.01 Elevation of levels of liver transaminase levels; E78.00 Pure hypercholesterolemia, unspecified; K21.9 Gastro-esophageal reflux disease without esophagitis; F41.9 Anxiety disorder, unspecified; F98.8 Other specified behavioral and emotional disorders with onset usually occurring in childhood and adolescence; Z87.891 Personal history of nicotine dependence; Z23 Encounter for immunization
CPT/HCPCS: 36415; 71045; 73130; 73200; 80053; 80202; 80306; 80320; 81000; 83605; 83735; 85007; 85025; 85027; 85610; 85730; 87040; 87070; 87075; 87077; 87088; 87205; 90715; 93041; 94760; 96361; 96365; 96367; 96375